=== PATIENT | male | born 1945 | race Caucasian/White ===

== ENCOUNTER → 2017-02-04 | Outpatient (CLI) | payer OTHER ==
[~2017-02-04] MED LIST: ATOR10TA88 PO; ATV/1 PO; DOCU-94 PO; GADAVIST IV PRN; HYD10 PO; HYDR10TA52 PO; IBUP-1450 PO; LISI-787 PO; OXYC1TAB3 PO; PRLSR20 PO
--- NOTE | 2017-02-04 12:42 | DIAGNOSTIC IMAGING REPORT ---
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 TECHNIQUE: Multisequence, multiplanar MR imaging of the brain was performed before and after the administration of intravenous contrast. IV contrast: 10 mL of Gadavist. COMPARISON: None. FINDINGS: Normal midline sagittal structures. Ventricles and sulci are normal in size without evidence of hydrocephalus. No restricted diffusion to suggest acute ischemia. No midline shift or mass effect. No evidence of hemorrhage or extra-axial fluid collection. No suspicious enhancement on postcontrast imaging. T2 skull base flow voids preserved. Dominant left vertebral artery. Normal bone marrow signal intensity within the calvarium. Minimal fluid in the right sphenoid sinus. IMPRESSION: 1. No acute intracranial pathology. No enhancing lesion to suggest hemangioblastoma. Electronically signed by: Seven Ponce M.D. 02/04/2017 12:41 PM Dictated Date/Time: 02/04/2017 12:36 PM
== END | disposition home or self-care (01) ==
LOC: C.OPENMRI 10:33
PROVIDERS: ATTEND Urology
DX: E27.9 Disorder of adrenal gland, unspecified (principal)

== ENCOUNTER → 2017-04-23 | Day surgery (SDC) | payer OTHER ==
[2017-04-22 08:50] VITALS: Ht 179.1 cm; Wt 97.3 kg
[~2017-04-23] VITALS: Ht 179.1 cm; Wt 97.3 kg
[~2017-04-23] MED LIST changes: -ATOR10TA88 PO; +FENTANYL CITRATE INJ 50 MCG/1 ML 2 ML VIAL ONE; -GADAVIST IV PRN; -IBUP-1450 PO; +LIDOCAINE HCL 2% 2 ML VIAL (20MG/ML) ONE; -LISI-787 PO; +PROPOFOL IV EMULSION 10 MG/ML 20 ML VIAL IV ONE
--- NOTE | 2017-04-23 09:35 | Endo History and Physical ---
History & Physical Date of Service: Apr 23, 2017. Chief Complaint: IRON DEF ANEMIA Referring Physician: DR. STORY History of Present Illness iron defic anemia; mother had colon cancer; never had EGD or colon before Past Surgical History Hx Cardiac Surgery: No Hx Pacemaker: No Hx Abdominal Surgery: Yes (ADRENAL GLAND REMOVAL AND MASS REMOVAL FROM KIDNEY) Hx of Implantable Prosthesis: No Hx Post-Op Nausea and Vomiting: No Hx Cancer Surgery: Yes (MELANOMA REMOVAL) Hx Thoracic Surgery: No Hx Orthopedic: No Hx Urinary Tract Surgery: No Family History Colon CA Social History Smoking Status: Never Smoker Hx Substance Use: Yes (SEE MED LIST) Hx Alcohol Use: No Allergies Coded Allergies: Simvastatin (Verified Allergy, Unknown, JOINT AND MUSCLE PAIN, 04/23/17) Current Medications Reported Home Medications Medications Dose Route/Sig Max Daily Dose Days Date Category Roxicodone Ir (Oxycodone HCl) 5 Mg Tab 5 Mg PO Q4H PRN 04/22/17 Reported Prilosec (Omeprazole) 20 Mg Capcr 20 Mg PO BID 04/22/17 Reported Ativan (Lorazepam) 1 Mg Tab 1 Mg PO BID PRN 04/22/17 Reported Cortef (Hydrocortisone) 10 Mg Tab 2 Tabs PO QAM 04/22/17 Reported Cortef (Hydrocortisone) 10 Mg Tab 0.5 Tab PO QPM 04/22/17 Reported Colace (Docusate Sodium) 100 Mg Cap 1 Cap PO BID 04/22/17 Reported Vital Signs Weight (Kilograms): 97.27 Height (Feet): 5 Height (Inches): 10.5 Date Time Temp Pulse Resp B/P (MAP) Pulse Ox O2 Delivery O2 Flow Rate FiO2 04/23/17 09:08 36.1 106 20 148/91 (110) 99 Room Air Physical Exam General Appearance: WD/WN, + mild distress Assessment and Plan EGd and colonoscopy today
--- NOTE | 2017-04-23 10:10 | Discharge Instructions ---
Endoscopy Patient Instructions Date / Procedure(s) Performed Apr 23, 2017. Colonoscopy, EGD Allergy Information Coded Allergies: Simvastatin (Verified Allergy, Unknown, JOINT AND MUSCLE PAIN, 04/23/17) Discharge Date / Findings Apr 23, 2017. large hiatal hernia and diverticulosis Medication Instructions Restart Stopped Medication(s): OK to resume all home medications as above Provider Instructions Activity Restrictions - No exercising or heavy lifting for 24 hours. - Do not drink alcohol the day of the procedure. - Do not drive a car or operate machinery until the day after the procedure. - Do not make any important decisions or sign important papers in 24 hours after the procedure. Following Day: - Return to full activity which may include returning to work/school. Diet Start your diet with liquids and light foods (jello, soup, juice, toast). Then eat your usual diet if not nauseated. Treatment For Common After Affects For mild abdominal pain, bloating, or excessive gas: - Rest - Eat lightly - Lie on right side Follow-Up Information Follow-up with DR. STORY as scheduled Anesthesia Information What You Should Know You have had a procedure that required some medicine to reduce anxiety and discomfort. This treatment is called moderate sedation. After receiving the treatment, you may be sleepy, but you will be able to breathe on your own. The effects of the treatment may last for several hours. Follow these instructions along with Activity/Diet recommendations noted above: * Do NOT do anything where dizziness or clumsiness would be dangerous. * Rest quietly at home today, then you can be up and about tomorrow. * Have a responsible person stay with you the rest of today. * You may have had an I.V. today. If so, you may take the dressing off later today. Recommendations Call your doctor if: * Trouble breathing * Continuous vomiting for more than 24 hours * Temperature above 101 degrees * Severe abdominal pain or bloating * Pain not relieved by pain medicine ordered * There is increased drainage or redness from any incision * A large amount of rectal bleeding greater than 2-3 tablespoons. (If you had a polyp/s removed or have hemorrhoids, a small amount of blood - from the rectum is to be expected.) * You have any unanswered questions or concerns. IN THE EVENT OF A SERIOUS EMERGENCY, GO TO THE NEAREST EMERGENCY ROOM Your discharge instructions were prepared by provider Yvonne Reina. Patient Instructions Signature Page Zia Martinez Patient (or Guardian) Signature/Date: I have read and understand the instructions given to me by my caregivers. Caregiver/RN/Doctor Signature/Date: The above-named patient and/or guardian has received patient instructions on this date. + Original Patient Signature Page (only) stays with chart. Please make copy for patient.
--- NOTE | 2017-04-23 10:12 | GI REPORT ---
Procedure Date: 04/23/2017 9:39 AM Procedure: Upper GI endoscopy Indications: Iron deficiency anemia Medicines: Propofol per Anesthesia Complications: No immediate complications. Estimated blood loss: None. Estimated Blood Loss: Estimated blood loss: none. Procedure: Pre-Anesthesia Assessment: - Prior to the procedure, a History and Physical was performed, and patient medications, allergies and sensitivities were reviewed. The patient's tolerance of previous anesthesia was reviewed. - The risks and benefits of the procedure and the sedation options and risks were discussed with the patient. All questions were answered and informed consent was obtained. - Patient identification and proposed procedure were verified prior to the procedure by the physician and the nurse. The procedure was verified in the pre-procedure area in the procedure room. - Mental Status Examination: alert and oriented. Airway Examination: normal oropharyngeal airway and neck mobility. Respiratory Examination: clear to auscultation. CV Examination: normal. Abdominal Examination: bowel sounds present, abdomen soft and non-tender, no masses or organomegaly noted. - ASA Grade Assessment: III - A patient with severe systemic disease. After obtaining informed consent, the endoscope was passed under direct vision. Throughout the procedure, the patient's blood pressure, pulse, and oxygen saturations were monitored continuously. The scope was introduced through the mouth, and advanced to the second part of duodenum. The upper GI endoscopy was accomplished without difficulty. The patient tolerated the procedure well. Findings: The esophagus was normal. A large hiatus hernia was present. The examined duodenum was normal. Impression: - Normal esophagus. - Large hiatus hernia. No camerons ulcers. - Normal examined duodenum. - No specimens collected. Recommendation: - Perform a colonoscopy today. Yvonne Reina D.O. Yvonne Reina, 04/23/2017 10:12:11 AM This report has been signed electronically. Note Initiated On: 04/23/2017 9:39 AM I attest to the content of the Intraoperative Record and orders documented therein, exceptions below
--- NOTE | 2017-04-23 10:14 | GI REPORT ---
Procedure Date: 04/23/2017 9:39 AM Procedure: Colonoscopy Indications: Screening in patient at increased risk: Colorectal cancer in mother 60 or older, Incidental - Iron deficiency anemia Medicines: Propofol per Anesthesia Complications: No immediate complications. Estimated blood loss: None. Estimated Blood Loss: Estimated blood loss: none. Procedure: Pre-Anesthesia Assessment: - Prior to the procedure, a History and Physical was performed, and patient medications, allergies and sensitivities were reviewed. The patient's tolerance of previous anesthesia was reviewed. - The risks and benefits of the procedure and the sedation options and risks were discussed with the patient. All questions were answered and informed consent was obtained. - Patient identification and proposed procedure were verified prior to the procedure by the physician and the nurse. The procedure was verified in the pre-procedure area in the procedure room. - Mental Status Examination: alert and oriented. Airway Examination: normal oropharyngeal airway and neck mobility. Respiratory Examination: clear to auscultation. CV Examination: normal. Abdominal Examination: bowel sounds present, abdomen soft and non-tender, no masses or organomegaly noted. - ASA Grade Assessment: III - A patient with severe systemic disease. After I obtained informed consent, the scope was passed under direct vision. Throughout the procedure, the patient's blood pressure, pulse, and oxygen saturations were monitored continuously. The scope was introduced through the anus and advanced to the cecum, identified by appendiceal orifice and ileocecal valve. The colonoscopy was performed without difficulty. The patient tolerated the procedure well. The quality of the bowel preparation was good. Findings: The perianal and digital rectal examinations were normal. Pertinent negatives include normal sphincter tone and no palpable rectal lesions. Multiple small and large-mouthed diverticula were found in the sigmoid colon and in the descending colon. Internal hemorrhoids were found during retroflexion. Impression: - Diverticulosis in the sigmoid colon and in the descending colon. - Internal hemorrhoids. - No specimens collected. Recommendation: - Repeat colonoscopy in 5 years for screening purposes. - Return to referring physician as previously scheduled. - Discharge patient to home. Yvonne Reina D.O. Yvonne Reina DO 04/23/2017 10:14:03 AM This report has been signed electronically. Note Initiated On: 04/23/2017 9:39 AM I attest to the content of the Intraoperative Record and orders documented therein, exceptions below
--- NOTE | 2017-04-23 10:26 | Anesthesiology Progress Note ---
Anesthesia Post Op Note Date & Time Apr 23, 2017 at 10:26 Vital Signs Pain Intensity: 0 Vital Signs Past 12 Hours Date Time Temp Pulse Resp B/P (MAP) Pulse Ox O2 Delivery O2 Flow Rate FiO2 04/23/17 10:15 36.5 86 20 92/56 (68) 99 Room Air 04/23/17 09:08 36.1 106 20 148/91 (110) 99 Room Air Notes Mental Status: alert / awake / arousable, participated in evaluation Pt Amnestic to Procedure: Yes Nausea / Vomiting: adequately controlled Pain: adequately controlled Airway Patency, RR, SpO2: stable & adequate BP & HR: stable & adequate Hydration State: stable & adequate Anesthetic Complications: no major complications apparent
[2017-04-23 10:45] VITALS: BP 104/65; PULSE 81; O2SAT 99
== END | disposition home or self-care (01) ==
LOC: C.GI 08:37
PROVIDERS: ATTEND Internal Medicine
DX: D50.9 Iron deficiency anemia, unspecified (principal); K57.30 Diverticulosis of large intestine without perforation or abscess without bleeding; K64.8 Other hemorrhoids; Z80.0 Family history of malignant neoplasm of digestive organs; G47.33 Obstructive sleep apnea (adult) (pediatric); Z98.890 Other specified postprocedural states; Z68.30 Body mass index [BMI] 30.0-30.9, adult; F41.9 Anxiety disorder, unspecified

== ENCOUNTER 2017-05-07 20:05 | Inpatient (IN) | payer OTHER ==
[~2017-05-07] VITALS: Ht 177.8 cm; Wt 93.0 kg
[~2017-05-07 20:05] MED LIST changes: -FENTANYL CITRATE INJ 50 MCG/1 ML 2 ML VIAL ONE; -LIDOCAINE HCL 2% 2 ML VIAL (20MG/ML) ONE; -PROPOFOL IV EMULSION 10 MG/ML 20 ML VIAL IV ONE
[2017-05-07] MEDS ORDERED: FERR1TAB13 PO (21:27)
[2017-05-07 21:36] LABS: BASO % 0.5 %; BASO ABS # 0.03 K/uL (0-0.2); EOS % 4.1 %; HEMATOCRIT 24.1 % (42-52); IG% 0.2 %; LYMPH % 30.3 %; LYMPH ABS # 1.84 K/uL (1.2-3.4); MEAN CELL VOLUME 75.3 fL (80-100); MEAN CORPUSCULAR HEMOGLOBIN 22.2 pg (25-34); MEAN CORPUSCULAR HGB CONC 29.5 g/dl (32-36); MEAN PLATELET VOLUME 8.2 fL (7.4-10.4); MONO % 8.6 %; NEUT % 56.3 %; PLATELET COUNT 555 K/uL (130-400); WHITE BLOOD COUNT 6.07 K/uL (4.8-10.8)
--- NOTE | 2017-05-07 21:39 | EMERGENCY ROOM VISIT NOTE ---
History First contact with patient: 21:06 Chief Complaint: WEAKNESS Stated Complaint: LACK OF BLOOD (WEAK) Nursing Triage Summary: Patient presents to triage via wheelchair, states "I was just in to see Dr. Hurley around 1300 today. He told me that my blood counts are low. My hgb is 7. I had an operation about 3 weeks ago and I had to have a blood transfusion at that time. I am so weak. I can't get my body back up here." Patient had a mass and adrenal glands removed with some lymph nodes. Surgery was completed by Dr. Moore in [place]. Patient denies any pain; reports shortness of breath with exertion. Patient was diagnosed with melanoma with mets. Patient has not started chemo or radiation at this time. History of Present Illness The patient is a 72 year old male who presents to the Emergency Room with complaints of weakness and some dyspnea on exertion. The symptoms have been going on for at least several days. The patient underwent a surgical resection of his left adrenal gland approximately 3 weeks ago. He was diagnosed with melanoma. He is not currently undergoing any chemotherapy. The patient is a fairly poor historian. He reportedly saw his doctor earlier today. He was told that his hemoglobin was low, and comes emergency department for evaluation. He denies any chest pain. He denies any lightheadedness or dizziness. He does admit to feeling very weak. He denies any black stools or bright red blood in his stool. He had a colonoscopy in the last 2 weeks. Review of Systems 10 system review performed and negative unless noted in HPI or below Past Medical/Surgical History Melanoma, status post left adrenal gland resection Social History Smoking Status: Former Smoker Marital Status: in relationship Housing Status: lives with significant other Occupation Status: retired Current/Historical Medications Scheduled Docusate Sodium (Colace), 1 CAP PO BID Ferrous Sulfate (Kp Ferrous Sulfate), 325 MG PO BID Hydrocortisone (Cortef), 10 MG PO QPM Hydrocortisone (Cortef), 2 TABS PO QAM Omeprazole (Prilosec), 20 MG PO QAM Scheduled PRN Lorazepam (Ativan), 1 MG PO BID PRN for Anxiety Physical Exam Vital Signs Date Time Temp Pulse Resp B/P (MAP) Pulse Ox O2 Delivery O2 Flow Rate FiO2 05/07/17 22:45 98 18 102/71 05/07/17 21:40 104 18 122/79 99 Room Air 05/07/17 21:30 106 05/07/17 20:11 37.0 90 18 110/70 95 Room Air Physical Exam VITALS: Vitals are noted on the nurse's note and reviewed by myself. Vital signs stable. GENERAL: 72-year-old male, pale in appearance, SKIN: The skin was without rashes, erythema, edema, or bruising. HEAD: Normocephalic atraumatic. MOUTH: Mucous membranes slightly dry NECK: . No JVD. HEART: Systolic murmur, regular rate and rhythm without murmurs gallops or rubs. LUNGS: Clear to auscultation bilaterally without wheezes, rales or rhonchi. No accessory muscle use. ABDOMEN: Well-healing incisional scar noted. Positive bowel sounds x 4.Soft, nontender, without organomegaly. No guarding or rebound tenderness. MUSCULOSKELETAL: No muscle atrophy, erythema, or edema noted. Strength 5/5 throughout. NEURO: Patient was alert and oriented to person place and time. Normal sensation to touch. No focal neurological deficits. Medical Decision & Procedures ER Provider Diagnostic Interpretation: CXR IMPRESSION: No acute cardiopulmonary findings. Electronically signed by: Cuong Rose M.D. 05/07/2017 10:04 PM Laboratory Results 05/07/17 21:08 Red Blood Count 3.20, Mean Corpuscular Volume 75.3, Mean Corpuscular Hemoglobin 22.2, Mean Corpuscular Hemoglobin Concent 29.5, Mean Platelet Volume 8.2, Neutrophils (%) (Auto) 56.3, Lymphocytes (%) (Auto) 30.3, Monocytes (%) (Auto) 8.6, Eosinophils (%) (Auto) 4.1, Basophils (%) (Auto) 0.5, Neutrophils # (Auto) 3.42, Lymphocytes # (Auto) 1.84, Monocytes # (Auto) 0.52, Eosinophils # (Auto) 0.25, Basophils # (Auto) 0.03 05/07/17 21:08 Test 05/07/17 21:08 White Blood Count 6.07 K/uL (4.8-10.8) Red Blood Count 3.20 M/uL (4.7-6.1) Hemoglobin 7.1 g/dL (14.0-18.0) Hematocrit 24.1 % (42-52) Mean Corpuscular Volume 75.3 fL (80-100) Mean Corpuscular Hemoglobin 22.2 pg (25-34) Mean Corpuscular Hemoglobin Concent 29.5 g/dl (32-36) Platelet Count 555 K/uL (130-400) Mean Platelet Volume 8.2 fL (7.4-10.4) Neutrophils (%) (Auto) 56.3 % Lymphocytes (%) (Auto) 30.3 % Monocytes (%) (Auto) 8.6 % Eosinophils (%) (Auto) 4.1 % Basophils (%) (Auto) 0.5 % Neutrophils # (Auto) 3.42 K/uL (1.4-6.5) Lymphocytes # (Auto) 1.84 K/uL (1.2-3.4) Monocytes # (Auto) 0.52 K/uL (0.11-0.59) Eosinophils # (Auto) 0.25 K/uL (0-0.5) Basophils # (Auto) 0.03 K/uL (0-0.2) RDW Standard Deviation 46.3 fL (36.4-46.3) RDW Coefficient of Variation 16.6 % (11.5-14.5) Immature Granulocyte % (Auto) 0.2 % Immature Granulocyte # (Auto) 0.01 K/uL (0.00-0.02) Hypochromasia PRESENT Ovalocytes 1+ Anion Gap 6.0 mmol/L (3-11) Est Creatinine Clear Calc Drug Dose 64.7 ml/min Estimated GFR () 68.5 Estimated GFR (Non- 59.1 BUN/Creatinine Ratio 18.0 (10-20) Calcium Level 8.5 mg/dl (8.5-10.1) Magnesium Level 1.9 mg/dl (1.8-2.4) Total Bilirubin 0.2 mg/dl (0.2-1) Aspartate Amino Transf (AST/SGOT) 14 U/L (15-37) Alanine Aminotransferase (ALT/SGPT) 13 U/L (12-78) Alkaline Phosphatase 84 U/L (45-117) Total Protein 6.1 gm/dl (6.4-8.2) Albumin 2.4 gm/dl (3.4-5.0) Globulin 3.7 gm/dl (2.5-4.0) Albumin/Globulin Ratio 0.7 (0.9-2) ECG Indication: weakness Rate (beats per minute): 102 Rhythm: sinus tachycardia ED Course Patient was seen and examined Vital signs including blood pressure were reviewed medications list was verified with patient Labs were obtained, and a saline lock was established The patient was ordered 2 units of packed RBCs The case was discussed with my supervising physician in addition to case management. I spoke with the [facility] service, who agreed to admit the patient. Medical Decision Differential diagnosis: Anemia of chronic disease, intra-abdominal bleeding, GI bleeding, vitamin deficiency This patient is a 72-year-old male that presents to the emergency department with complaints of weakness. He recently underwent excision of his left adrenal gland 3 weeks ago for metastatic melanoma. The patient's abdomen is benign. He does not have any abdominal pain. I do not suspect any postoperative bleeding. The patient does not have any signs of GI bleeding. He underwent a colonoscopy 2 weeks ago that did not show any signs of bleeding, lesions or masses. It is possible that this is a mixture of malnutrition and anemia of chronic disease. His hemoglobin is 7.1. I do not feel comfortable sending this patient home as he will need to receive several units of blood. He agreed to stay overnight for further workup and treatment. This chart was completed in part utilizing [employer] Speech Voice Recognition software. Attempts were made to minimize the grammatical errors, random word insertions, pronoun errors and incomplete sentences. Any formal questions or concerns about the content, text or information contained within the body of this dictation should be directly addressed to the provider for clarification. Medication Reconcilliation Current Medication List: was personally reviewed by me Blood Pressure Screening Patient's blood pressure: Normal blood pressure Impression Primary Impression: Anemia Departure Information Referrals Vic Salinas M.D. (PCP) Patient Instructions My [facility]
[2017-05-07 21:56] LABS: CALCIUM 8.5 mg/dl (8.5-10.1); CREATININE 1.23 mg/dl (0.60-1.40); MAGNESIUM 1.9 mg/dl (1.8-2.4); POTASSIUM 4.2 mmol/L (3.5-5.1)
[2017-05-07 21:58] LABS: ALB/GLOB RATIO 0.7 (0.9-2)
[2017-05-07 22:01] LABS: COMPLETE YES; HYPOCHROMIA PRESENT; OVALOCYTES 1+
--- NOTE | 2017-05-07 22:06 | DIAGNOSTIC IMAGING REPORT ---
CHEST ONE VIEW PORTABLE CLINICAL HISTORY: Weakness. COMPARISON STUDY: No previous studies for comparison. FINDINGS: Right axillary surgical clips are noted. Lung volumes are normal. No pneumothorax or pleural effusion is present. There is no consolidation to suggest pneumonia and there is no evidence of pulmonary edema. Cardiomediastinal silhouette is normal. IMPRESSION: No acute cardiopulmonary findings. Electronically signed by: Cuong Rose M.D. 05/07/2017 10:04 PM Dictated Date/Time: 05/07/2017 10:04 PM
[2017-05-07 23:45] VITALS: BP 112/63; PULSE 94; TEMP 36.8; O2SAT 98
[2017-05-08] VITALS (10 sets, daily range): BP systolic 89–120; BP diastolic 56–71; PULSE 73–98; TEMP 36.3–37; O2SAT 99–100; Ht 177.8 cm; Wt 93.0 kg
[2017-05-08] MEDS ORDERED: TRAMADOL HCL 50 MG TAB PO PRN (01:30)
[2017-05-08] MEDS ORDERED: SODIUM CHLORIDE 0.9% 1000ML 1,000 ML IV ONE (01:30)
[2017-05-08] MEDS ORDERED: LORAZEPAM 1 MG TAB PO PRN (01:30)
[2017-05-08] MEDS ORDERED: ONDANSETRON INJ 2 MG/ML 2 ML VIAL IV PRN (01:30)
[2017-05-08] MEDS ORDERED: ACETAMINOPHEN 325 MG TAB PO PRN (01:30)
[2017-05-08] MEDS ORDERED: OPTIRAY 320 IV PRN (01:45)
[2017-05-08 01:51] LABS: THYROID STIMULATING HORMONE 1.4 uIu/ml (0.300-4.500)
[2017-05-08 05:38] LABS: URINE APPEARANCE CLEAR (CLEAR); URINE BILIRUBIN NEG (NEG); URINE COLOR YELLOW; URINE EPITHELIAL CELL AUTO >30 /lpf (0-5); URINE NITRITE NEG (NEG); URINE PH 5.5 (4.5-7.5); URINE SPECIFIC GRAVITY 1.034 (1.000-1.030); UROBILINOGEN NEG (NEG)
[2017-05-08 06:01] LABS: BASO % 0.5 %; BASO ABS # 0.03 K/uL (0-0.2); EOS % 5.2 %; HEMATOCRIT 23.7 % (42-52); IG% 0.2 %; LYMPH % 34.9 %; LYMPH ABS # 2.09 K/uL (1.2-3.4); MEAN CELL VOLUME 75.5 fL (80-100); MEAN CORPUSCULAR HEMOGLOBIN 23.2 pg (25-34); MEAN CORPUSCULAR HGB CONC 30.8 g/dl (32-36); MEAN PLATELET VOLUME 8.2 fL (7.4-10.4); MONO % 9.2 %; PLATELET COUNT 459 K/uL (130-400); RED BLOOD COUNT 3.14 M/uL (4.7-6.1); WHITE BLOOD COUNT 5.98 K/uL (4.8-10.8)
[2017-05-08 06:13] LABS: MANUAL MICROSCOPIC REQUIRED? NO; REVIEW REQ? YES
[2017-05-08 06:19] LABS: PROTHROMBIN TIME (PATIENT) 10.4 SECONDS (9.0-12.0)
[2017-05-08 06:56] LABS: COMPLETE YES; HYPOCHROMIA PRESENT; MICROCYTOSIS PRESENT
--- NOTE | 2017-05-08 07:20 | DIAGNOSTIC IMAGING REPORT ---
CHEST CTA for PULMONARY ARTERIES CT DOSE: 505.88 mGy.cm HISTORY: Short of breath. TECHNIQUE: Multiaxial CT images of the chest were performed following the intravenous administration of contrast to evaluate the pulmonary arteries. Maximal intensity projection images were also obtained. A dose lowering technique was utilized adhering to the principles of ALARA. COMPARISON STUDY: None. FINDINGS: No evidence for an aortic dissection or pulmonary embolus. The heart is normal in size. No pleural or pericardial effusions. Surgical clips within the right axilla. Incompletely imaged 7.6 cm right adrenal gland mass. There are 2 hypodense splenic masses with the largest measuring 4.9 cm. Mild soft tissue and nodular thickening at the left adrenal gland with the dominant nodule measuring 9 mm. This is posterior to the pancreatic tail. Mediastinal lymph nodes are subcentimeter in short axis diameter with the largest measuring 8 mm. These do not meet CT criteria for pathologic involvement. Old, healed left-sided rib fractures. No pneumothorax. A 3 mm nodule within the left lower lobe on image 102. A 3 mm nodule within the left lower lobe on image 113. A 3 mm nodule within the right middle lobe on image 182. IMPRESSION: 1. No evidence for pulmonary embolus. 2. A 7.6 cm right adrenal gland mass and abnormal soft tissue density/nodularity within the left retroperitoneum in the region of the left adrenal gland. There also 2 hypodense splenic masses. This is suspicious for metastatic disease. 3. A total of 3, 3 mm indeterminate pulmonary nodules. Electronically signed by: Mingo Constantino M.D. 05/08/2017 7:19 AM Dictated Date/Time: 05/08/2017 7:13 AM
[2017-05-08] MEDS ORDERED: PERFLUTREN LIPID MICROSPHERE (DEFINITY) IV ONE (07:43)
[2017-05-08] MEDS ORDERED: DOCUSATE SODIUM 100 MG CAP PO SCH (08:00)
[2017-05-08] MEDS ORDERED: FERROUS SULFATE 325 MG TAB PO SCH (08:00)
[2017-05-08] MEDS ORDERED: HYDROCORTISONE 10 MG TAB PO SCH ×3 (08:00→21:00)
[2017-05-08] MEDS ORDERED: PANTOprazole SOD 40 MG TAB PO SCH (08:00)
[2017-05-08] MEDS ORDERED: ENOXAPARIN 40 MG/0.4 ML SYR SQ SCH (08:00)
[2017-05-08] MEDS ORDERED: NURSING VERBAL MED ORDER ONE (08:30)
--- NOTE | 2017-05-08 10:25 | Progress Note ---
Internal Med Progress Note Date of Service: May 08, 2017. Provider Documentation: SUBJECTIVE: feels exhausted as did not get any sleep last night no complain of SOB or JACOBO got 1 unit of PRBC transfusion had ECHO this AM , had brief period of SOB , chest heaviness with pain radiating to back while getting the Definity contrast symptom has resolved after few minutes at present denies of any discomfort wants to have rest to catch up with his sleep OBJECTIVE: Vital Signs-as noted below Exam: General-no sign of distress Eyes-sclera non icteric ENT-NAD Neck-no JVD Lungs-CTA , no rales or wheeze Heart-regular S1/S2 Abdomen-soft, non tender Extremities-no lower ext edema Neuro-AAo x3 , no focal deficit Lab data as noted below. ASSESSMENT & PLAN: SOB /JACOBO : possible due to Anemia ordered for PRBC transfusion ECHO ordered to assess LV function will benefit with out pt pulmonary function test ANEMIA : possible anemia of chronic disease last Hb on 05/05 was ~8 Presented with HB 7.1 with symptom of weakness and JACOBO ordered for PRBC tx , getting 2 units of PRBC tx follow repeat H&H post transfusion for adequate correction low MCV , denies of any dark stool had EGD /Colonoscopy work up on 04/23/17 for fe deficiency anemia EGD -normal study Colonoscopy : diverticulosis in sigmoid colon, internal hemorrhoids follow CBC on Fe supplement RECENT ADRENAL SURGERY /RECURRENT MELANOMA history of melanoma of the right shoulder S/p resection in 11/02/2013 found to have bilateral adrenal masses s/p open left adrenalectomy on 2016. . found to be metastatic melanoma cont out pt follow up with Heme Onc -scheduled to see Dr Frederick on 05/22/17 Cont on Hydrocortisone 20 mg in AM /10 mg at PM DVT PROPHYLAXIS scd and teds ambulate will avoid pharmacological anticoagulation due to anemia DISPOSITION expected to be discharged home when medically stable Medicine follow up with Dr Salinas Oncology follow up with Dr Frederick Vital Signs: Date Time Temp Pulse Resp B/P (MAP) Pulse Ox O2 Delivery O2 Flow Rate FiO2 05/08/17 09:37 36.8 95 18 115/63 05/08/17 07:45 Room Air 05/08/17 01:50 36.5 88 16 120/70 (87) 99 Room Air 05/08/17 01:23 37.0 91 22 113/65 98 05/08/17 01:12 91 22 113/65 98 05/08/17 01:10 37.0 89 22 113/65 99 05/08/17 00:32 Room Air 05/07/17 23:45 36.8 94 112/63 98 05/07/17 23:35 100 113/70 05/07/17 22:45 98 18 102/71 05/07/17 21:40 104 18 122/79 99 Room Air 05/07/17 21:30 106 05/07/17 20:11 37.0 90 18 110/70 95 Room Air Lab Results: Results Past 24 Hours Test 05/07/17 21:08 05/08/17 05:20 05/08/17 05:50 Range/Units White Blood Count 6.07 5.98 4.8-10.8 K/uL Red Blood Count 3.20 3.14 4.7-6.1 M/uL Hemoglobin 7.1 7.3 14.0-18.0 g/dL Hematocrit 24.1 23.7 42-52 % Mean Corpuscular Volume 75.3 75.5 80-100 fL Mean Corpuscular Hemoglobin 22.2 23.2 25-34 pg Mean Corpuscular Hemoglobin Concent 29.5 30.8 32-36 g/dl Platelet Count 555 459 130-400 K/uL Mean Platelet Volume 8.2 8.2 7.4-10.4 fL Neutrophils (%) (Auto) 56.3 50.0 % Lymphocytes (%) (Auto) 30.3 34.9 % Monocytes (%) (Auto) 8.6 9.2 % Eosinophils (%) (Auto) 4.1 5.2 % Basophils (%) (Auto) 0.5 0.5 % Neutrophils # (Auto) 3.42 2.99 1.4-6.5 K/uL Lymphocytes # (Auto) 1.84 2.09 1.2-3.4 K/uL Monocytes # (Auto) 0.52 0.55 0.11-0.59 K/uL Eosinophils # (Auto) 0.25 0.31 0-0.5 K/uL Basophils # (Auto) 0.03 0.03 0-0.2 K/uL RDW Standard Deviation 46.3 45.3 36.4-46.3 fL RDW Coefficient of Variation 16.6 16.3 11.5-14.5 % Immature Granulocyte % (Auto) 0.2 0.2 % Immature Granulocyte # (Auto) 0.01 0.01 0.00-0.02 K/uL Hypochromasia PRESENT PRESENT Ovalocytes 1+ Sodium Level 136 136-145 mmol/L Potassium Level 4.2 3.5-5.1 mmol/L Chloride Level 102 98-107 mmol/L Carbon Dioxide Level 28 21-32 mmol/L Anion Gap 6.0 3-11 mmol/L Blood Urea Nitrogen 22 7-18 mg/dl Creatinine 1.23 0.60-1.40 mg/dl Est Creatinine Clear Calc Drug Dose 64.7 ml/min Estimated GFR () 68.5 Estimated GFR (Non- 59.1 BUN/Creatinine Ratio 18.0 10-20 Random Glucose 105 70-99 mg/dl Calcium Level 8.5 8.5-10.1 mg/dl Magnesium Level 1.9 1.8-2.4 mg/dl Total Bilirubin 0.2 0.2-1 mg/dl Aspartate Amino Transf (AST/SGOT) 14 15-37 U/L Alanine Aminotransferase (ALT/SGPT) 13 12-78 U/L Alkaline Phosphatase 84 45-117 U/L Total Protein 6.1 6.4-8.2 gm/dl Albumin 2.4 3.4-5.0 gm/dl Globulin 3.7 2.5-4.0 gm/dl Albumin/Globulin Ratio 0.7 0.9-2 Thyroid Stimulating Hormone (TSH) 1.400 0.300-4.500 uIu/ml Urine Color YELLOW Urine Appearance CLEAR CLEAR Urine pH 5.5 4.5-7.5 Urine Specific Carr 1.034 1.000-1.030 Urine Protein NEG NEG Urine Glucose (UA) NEG NEG Urine Ketones NEG NEG Urine Occult Blood 1+ NEG Urine Nitrite NEG NEG Urine Bilirubin NEG NEG Urine Urobilinogen NEG NEG Urine Leukocyte Esterase MODERATE NEG Urine WBC (Auto) >30 0-5 /hpf Urine RBC (Auto) 5-10 0-4 /hpf Urine Hyaline Casts (Auto) 1-5 0-5 /lpf Urine Epithelial Cells (Auto) >30 0-5 /lpf Urine Bacteria (Auto) NEG NEG Urine Yeast (Auto) NONE PRSENT Microcytosis PRESENT Prothrombin Time 10.4 9.0-12.0 SECONDS Prothromb Time International Ratio 1.0 0.9-1.1
--- NOTE | 2017-05-08 10:36 | HISTORY & PHYSICAL EXAMINATION ---
DATE OF ADMISSION: 05/08/2017 PRIMARY CARE DOCTOR: Dr. Salinas. CHIEF COMPLAINT: Weakness, abnormal blood work. HISTORY OF PRESENT ILLNESS: History obtained from the patient and records. Medical history significant for recurrent melanoma, status post surgery with newly diagnosed adrenal mets, status post recent surgery, hypertension , past tobacco abuse, LILLIANA on CPAP. In 2013, the patient had removal of trunk melanoma. November 2016, the patient noted major decline in energy and sense of well being and major weight loss. He was found to have bilateral adrenal masses left greater than the right on CT 02/2017. Possible adrenal insufficiency as per [facility] [place]. Started on steroid maintenance Rx. Seen at [facility]. Patient underwent left laparoscopic adrenalectomy last 04/14/2017. Preop hemoglobin noted to be 8.1, 7.8 on discharge. Outpatient GI workup done a few weeks later. EGD last 04/23/2017 showed normal esophagus, hiatal hernia, no Anant ulcers. Colonoscopy showed diverticulosis, internal hemorrhoids. As per patient, a few days after surgery, patient noted shortness of breath on exertion. No chest pain, no cough symptoms. Symptoms worsened after colonoscopy prep. Denies unusual depression. Feels rested in the morning after wearing CPAP mask overnight. Patient had follow-up [facility] [place]rolog[place] 05/06/2017. Pathology came out as metastatic melanoma for removed left adrenal mass. Right adrenal mass suspicious for metastatic disease as well. Tumor testing, PET scan, outpatient oncology referral recommended. Consideration for right adrenalectomy pending staging workup. Patient seen [place] [facility] [place] yesterday. Outpatient hemoglobin noted to be 7.1. The patient sent to the Emergency Room. Repeat hemoglobin noted to be 7.1. Packed RBC transfused in the ER. MEDICAL HISTORY: As above. SURGERIES: Adrenalectomy, skin cancer surgery. HOME MEDICATIONS: Include Colace, ferrous sulfate, Cortef, Ativan, Prilosec. ALLERGIES: SIMVASTATIN. FAMILY HISTORY: Colon cancer, heart disease, stroke. PERSONAL AND SOCIAL HISTORY: Past tobacco abuse. Past alcohol abuse. 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 REVIEW OF SYSTEMS: As per HPI, all other ROS negative. PHYSICAL EXAMINATION: VITAL SIGNS: Blood pressure was noted to be 113/65, pulse rate 89, RR 22, temperature 36.7, sats 99 on room air. GENERAL: Noted to be slightly irate. No respiratory distress. SKIN: Pallor, warm. HEENT: Partial alopecia, pink palpebral conjunctivae. No ptosis. Dry buccal mucosa. NECK: No tenderness. Supple. CHEST: No tenderness. Clear to auscultation. CARDIOVASCULAR: Regular rate and rhythm. Palpable LE pulses. ABDOMEN: Some distention. Nontender. EXTREMITIES: No edema. No gross deformities. No tenderness NEUROLOGIC: No gross focality. Coherent. LABORATORY DATA: Hemoglobin was noted to be 7.1, hematocrit 24, white blood cell count 6, platelets 555. Sodium 136, potassium 4.2, chloride 102, CO2 of 28, BUN 20, creatinine 1, glucose 90. Chest x-ray showed no acute findings. CT chest, PE study, initial read, no evidence of pulmonary embolus. ASSESSMENT: 1. Postop shortness of breath on exertion last few weeks Differentials include : deconditioning cardiac dysfunction undiagnosed chronic obstructive pulmonary disease. Would not attribute all symptoms to anemia given stable hemoglobin of 7-8 perioperatively from last month. 2. Adrenal insufficiency on medications. 3. Recurrent melanoma with adrenal metastases status post surgery. Disposition pending scheduled outpatient PET scan. 4. Past tobacco abuse. PLAN: F Transfuse packed RBCs for possible symptomatic anemia. 2D echo RE shortness of breath. Outpatient PFTs. PT/OT eval. DVT prophylaxis, Lovenox subcu. Full code. MTDD
--- NOTE | 2017-05-08 14:52 | ECHOCARDIOGRAM REPORT ---
*NOTICE TO RECEIVING LIBERTARIAN AGENCY This information is strictly Confidential and protected under [place] law. [place] law prohibits you from making any further disclosure of this information unless further disclosure is expressly permitted by the written consent of the person to whom it pertains or is authorized by law. A general authorization for the release of medical or other information is not sufficient for this purpose. Hospital accepts no responsibility if the information is made available to any other person, INCLUDING THE PATIENT. Interpretation Summary * Name: MARYANN RAHMAN SR Study Date: 05/08/2017 06:34 AM BP: 120/70 mmHg * Patient Location: [id number]\E423\S\1 HR: 88 * : 1945 (M/d/yyy) Gender: Male Height: 70 in * Age: 72 yrs Ethnicity: [place] Weight: 205 lb * Ordering Physician: Getachew Mccall * Referring Physician: Juan Francisco Frederick * Performed By: Tomy Faulkner [facility] * * Reason For Study: SOB * BSA: 2.1 m2 * Grossly normal valvular structure and function. * -- Conclusions -- * The left ventricle is normal in size. * Left ventricular systolic function is normal. * Ejection Fraction = 60-65%. * The right ventricular systolic function is normal. * The left atrial size is normal. * Right atrial size is normal. * Grossly normal valvular structure and function. Procedure Details * A complete two-dimensional transthoracic echocardiogram was performed (2D, M-mode, Doppler and color flow Doppler). * The study was technically difficult. * The study was technically limited. * There were technical limitations due to patient'spoor positioning * A contrast injection of Definity was performed to improve assessment of LV function. * Contrast was injected into an intravenous site in the right arm. * One vial of Definity ultrasound contrast was diluted in normal saline to a total volume of 10 ml. A total of '2' ml of solution was administered during imaging. * Lot # [id number] of Definity utilized for procedure. * Expiration date . * The attending nurse who injected the contrast agent was Miguel Salinas RN. * Patient experienced severe back after administering Definity. Left Ventricle * The left ventricle is normal in size. * There is normal left ventricular wall thickness. * Ejection Fraction = 60-65%. * Left ventricular systolic function is normal. Right Ventricle * The right ventricle is normal size. * The right ventricular systolic function is normal. Atria * The left atrial size is normal. * Right atrial size is normal. * There is no evidence of atrial septal defect, but resolution does not allow assessment for a patent foramen ovale. Mitral Valve * The mitral valve anatomy is normal. * Significant mitral regurgitation is absent. Aortic Valve * The aortic valve is not well visualized. * No hemodynamically significant valvular aortic stenosis. * There is no significant aortic regurgitation. Pulmonic Valve * The pulmonic valve is not well visualized. Great Vessels * The aortic root and proximal ascending aorta are normal sized. Pericardium/Pleural * There is no pericardial effusion. MMode 2D Measurements and Calculations IVSd 0.94 cm IVSs 1.2 cm LVIDd 4.7 cm LVIDs 2.9 cm LVPWd 1.0 cm LVPWs 1.1 cm IVS/LVPW 0.91 FS 37.3 % EDV(Teich) 99.9 ml ESV(Teich) 32.7 ml EF(Teich) 67.3 % EDV(cubed) 100.6 ml ESV(cubed) 24.8 ml EF(cubed) 75.3 % % IVS thick 30.0 % % LVPW thick 4.2 % LV mass(C)d 158.3 grams LV mass(C)dI 75.0 grams/m\S\2 LV mass(C)s 97.7 grams LV mass(C)sI 46.3 grams/m\S\2 SV(Teich) 67.2 ml SI(Teich) 31.9 ml/m\S\2 SV(cubed) 75.8 ml SI(cubed) 35.9 ml/m\S\2 Ao root diam 3.6 cm Ao root area 10.2 cm\S\2 ACS 1.8 cm LA dimension 3.6 cm LA/Ao 0.99 LVAd ap4 21.1 cm\S\2 LVLd ap4 6.7 cm EDV(MOD-sp4) 55.5 ml LVAs ap4 12.7 cm\S\2 LVLs ap4 6.4 cm ESV(MOD-sp4) 20.2 ml EF(MOD-sp4) 63.6 % LVAd ap2 30.4 cm\S\2 LVLd ap2 8.2 cm EDV(MOD-sp2) 92.5 ml LVAs ap2 19.0 cm\S\2 LVLs ap2 7.6 cm ESV(MOD-sp2) 39.9 ml EF(MOD-sp2) 56.9 % SV(MOD-sp4) 35.3 ml SI(MOD-sp4) 16.7 ml/m\S\2 SV(MOD-sp2) 52.6 ml SI(MOD-sp2) 24.9 ml/m\S\2 Doppler Measurements and Calculations MV E max arturo 83.9 cm/sec MV A max arturo 92.6 cm/sec MV E/A 0.91 MV P1/2t max arturo 85.5 cm/sec MV P1/2t 57.8 msec MVA(P1/2t) 3.8 cm\S\2 MV dec slope 433.7 cm/sec\S\2 MV dec time 0.28 sec Ao V2 max 118.8 cm/sec Ao max PG 5.6 mmHg Ao max PG (full) 1.5 mmHg LV V1 max PG 4.2 mmHg LV V1 max 101.9 cm/sec PA V2 max 105.9 cm/sec PA max PG 4.5 mmHg TR max arturo 234.8 cm/sec
[2017-05-08] MEDS ORDERED: NURSING DECISION MEDICATION ORDER SCH (15:45)
[2017-05-08 16:10] LABS: HEMATOCRIT 24.2 % (42-52)
--- NOTE | 2017-05-08 17:08 | Discharge Instructions ---
Discharge Instructions Date of Service May 08, 2017. Admission Reason for Admission: Symptomatic Anemia Discharge Discharge Diagnosis / Problem: ANEMIA /METASTATIC MELANOMA Discharge Goals Goal(s): Improve disease control, Diagnostic testing, Therapeutic intervention Activity Recommendations Activity Limitations: resume your previous activity . Instructions / Follow-Up Instructions / Follow-Up HOSPITAL FOLLOW UP : 05/11/2017 1:00 PM Vic Salinas MD [facility] LAB WORK : COMPLETE BLOOD COUNT ON Thursday05/11/17 Current Hospital Diet Patient's current hospital diet: Regular Diet Discharge Diet Recommended Diet: Regular Diet Pending Studies Studies pending at discharge: yes List of pending studies: LAB WORK : COMPLETE BLOOD COUNT ON Thursday05/11/17 Medical Emergencies . Who to Call and When: Medical Emergencies: If at any time you feel your situation is an emergency, please call 911 immediately. . Non-Emergent Contact Non-Emergency issues call your: Primary Care Provider . . "Provider Documentation" section prepared by Cherry Allen. . VTE Core Measure Inpt VTE Proph given/why not?: Hussein Huertas, SCD's
--- NOTE | 2017-05-08 17:22 | Discharge Summary ---
Discharge Summary Date of Service May 08, 2017. Discharge Summary Admission Date: May 08, 2017 at 00:32 Discharge Date: May 08, 2017 Discharge Disposition: Home Principal Diagnosis: ANEMIA /METASTATIC MELANOMA Procedures: ECHO shows normal LV function : The left ventricle is normal in size. Left ventricular systolic function is normal. Ejection Fraction = 60-65%. The right ventricular systolic function is normal. The left atrial size is normal. Right atrial size is normal. Medication Reconciliation Continued Medications: Docusate Sodium (Colace) 100 Mg Cap 1 CAP PO BID Ferrous Sulfate (Kp Ferrous Sulfate) 325 Mg Tab 325 MG PO BID, TAB 3 Refills Hydrocortisone (Cortef) 10 Mg Tab 10 MG PO QPM Hydrocortisone (Cortef) 10 Mg Tab 2 TABS PO QAM Lorazepam (Ativan) 1 Mg Tab 1 MG PO BID PRN for Anxiety Omeprazole (Prilosec) 20 Mg Capcr 20 MG PO QAM Referrals At Discharge Follow up Referrals: Physician Referral - 05/11/17 with Vic Salinas M.D. Admission Information HPI (per Admitting provider): DATE OF ADMISSION: 05/08/2017 PRIMARY CARE DOCTOR: Dr. Salinas. CHIEF COMPLAINT: Weakness, abnormal blood work. HISTORY OF PRESENT ILLNESS: History obtained from the patient and records. Medical history significant for recurrent melanoma, status post surgery with newly diagnosed adrenal mets, status post recent surgery, hypertension , past tobacco abuse, LILLIANA on CPAP. In 2013, the patient had removal of trunk melanoma. November 2016, the patient noted major decline in energy and sense of well being and major weight loss. He was found to have bilateral adrenal masses left greater than the right on CT 02/2017. Possible adrenal insufficiency as per [facility] Endocr[place]ology evaluation. Started on steroid maintenance Rx. Seen at [facility]. Patient underwent left laparoscopic adrenalectomy last 04/14/2017. Preop hemoglobin noted to be 8.1, 7.8 on discharge. Outpatient GI workup done a few weeks later. EGD last 04/23/2017 showed normal esophagus, hiatal hernia, no Anant ulcers. Colonoscopy showed diverticulosis, internal hemorrhoids. As per patient, a few days after surgery, patient noted shortness of breath on exertion. No chest pain, no cough symptoms. Symptoms worsened after colonoscopy prep. Denies unusual depression. Feels rested in the morning after wearing CPAP mask overnight. Patient had follow-up [facility] urologist 05/06/2017. Pathology came out as metastatic melanoma for removed left adrenal mass. Right adrenal mass suspicious for metastatic disease as well. Tumor testing, PET scan, outpatient oncology referral recommended. Consideration for right adrenalectomy pending staging workup. Patient seen by [facility] [place]cology yesterday. Outpatient hemoglobin noted to be 7.1. The patient sent to the Emergency Room. Repeat hemoglobin noted to be 7.1. Packed RBC transfused in the ER. MEDICAL HISTORY: As above. SURGERIES: Adrenalectomy, skin cancer surgery. HOME MEDICATIONS: Include Colace, ferrous sulfate, Cortef, Ativan, Prilosec. ALLERGIES: SIMVASTATIN. FAMILY HISTORY: Colon cancer, heart disease, stroke. PERSONAL AND SOCIAL HISTORY: Past tobacco abuse. Past alcohol abuse. 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 Physical Exam (per Admitting): REVIEW OF SYSTEMS: As per HPI, all other ROS negative. PHYSICAL EXAMINATION: VITAL SIGNS: Blood pressure was noted to be 113/65, pulse rate 89, RR 22, temperature 36.7, sats 99 on room air. GENERAL: Noted to be slightly irate. No respiratory distress. SKIN: Pallor, warm. HEENT: Partial alopecia, pink palpebral conjunctivae. No ptosis. Dry buccal mucosa. NECK: No tenderness. Supple. CHEST: No tenderness. Clear to auscultation. CARDIOVASCULAR: Regular rate and rhythm. Palpable LE pulses. ABDOMEN: Some distention. Nontender. EXTREMITIES: No edema. No gross deformities. No tenderness NEUROLOGIC: No gross focality. Coherent. Hospital Course SOB /JACOBO : possible due to Anemia ordered for PRBC transfusion ECHO ordered to assess LV function will benefit with out pt pulmonary function test ANEMIA : possible anemia of chronic disease last Hb on 05/05 was ~8 Presented with HB 7.1 with symptom of weakness and JACOBO ordered for PRBC tx , getting 2 units of PRBC tx follow repeat H&H post transfusion for adequate correction low MCV , denies of any dark stool had EGD /Colonoscopy work up on 04/23/17 for fe deficiency anemia EGD -normal study Colonoscopy : diverticulosis in sigmoid colon, internal hemorrhoids follow CBC on Fe supplement RECENT ADRENAL SURGERY /RECURRENT MELANOMA history of melanoma of the right shoulder S/p resection in 11/02/2013 found to have bilateral adrenal masses s/p open left adrenalectomy on 2016. . found to be metastatic melanoma cont out pt follow up with Heme Onc -scheduled to see Dr Frederick on 05/22/17 Cont on Hydrocortisone 20 mg in AM /10 mg at PM DVT PROPHYLAXIS scd and teds ambulate will avoid pharmacological anticoagulation due to anemia DISPOSITION expected to be discharged home when medically stable Medicine follow up with Dr Salinas Oncology follow up with Dr Frederick ATTENDING NOTE : repeat Lab work : at 4 pm hb improved to 7.9 after 2 units of PRBC transfusion pt reports of feeling well , no JACOBO , SOB or dizzy spell ECHO shows normal LV function : The left ventricle is normal in size. Left ventricular systolic function is normal. Ejection Fraction = 60-65%. The right ventricular systolic function is normal. The left atrial size is normal. Right atrial size is normal. pt requests to be discharged home scheduled for Hospital follow up on Thursday05/11/17 . Lab script given for CBC to be checked on same day pt is stable to be discharged home today Total time spent on discharge = 35 mins This includes examination of the patient, discharge planning, medication reconciliation, and communication with other providers. Discharge Instructions Discharge Instructions Date of Service May 08, 2017. Admission Reason for Admission: Symptomatic Anemia Discharge Discharge Diagnosis / Problem: ANEMIA /METASTATIC MELANOMA Discharge Goals Goal(s): Improve disease control, Diagnostic testing, Therapeutic intervention Activity Recommendations Activity Limitations: resume your previous activity . Instructions / Follow-Up Instructions / Follow-Up HOSPITAL FOLLOW UP : 05/11/2017 1:00 PM Vic Salinas MD [facility] LAB WORK : COMPLETE BLOOD COUNT ON Thursday05/11/17 Current Hospital Diet Patient's current hospital diet: Regular Diet Discharge Diet Recommended Diet: Regular Diet Pending Studies Studies pending at discharge: yes List of pending studies: LAB WORK : COMPLETE BLOOD COUNT ON Thursday05/11/17 Medical Emergencies . Who to Call and When: Medical Emergencies: If at any time you feel your situation is an emergency, please call 911 immediately. . Non-Emergent Contact Non-Emergency issues call your: Primary Care Provider . . "Provider Documentation" section prepared by Cherry Allen. . VTE Core Measure Inpt VTE Proph given/why not?: Hussein Huertas, SCD's Additional Copies To Vic Salinas M.D. Gray, Keriann N., MD
--- NOTE | 2017-05-12 12:50 | EDITING REQUIRED CODING QUERY ---
CODING QUERY To promote full compliance with coding requirements relating to patient care, provider participation is requested in all cases of squeegee operator uncertainty. Please assist us with the question(s) below: Coding Question(s): There is documentation of ANEMIA/METASTATIC MELANOMA on the Discharge Summary with documentation in the record and the Discharge Summary of ANEMIA: possible anemia of chronic disease. Please clarify below, in your clinical opinion. ( x) Possible Anemia of Chronic Disease is from Neoplastic Disease. Please specify below the Neoplasm site: ( x ) Neoplasm of the RT Adrenal Gland ( ) Other Neoplasm: Specify ( ) Possible Anemia of Chronic Disease, other than Neoplastic Disease. Specify the Chronic Disease: Physician's Response(s): Thank you Kelly Romero Principal Diagnosis: "_that condition established after study, to be chiefly responsible for occasioning the admission of the patient to the hospital for care." Co-Existing Principal Diagnosis: "_when two or more diagnoses equally meet the criteria for principal diagnosis as determined by the circumstances of admission, diagnostic work up, and/or therapy provided, and the Alphabetic Index, Tabular List, or another coding guideline does not provide sequencing direction, any one of the diagnoses may be sequenced first." "When the physician has documented what appears to be a current diagnosis in the body of the record, but has not included the diagnosis in the final diagnostic statement, the physician should be asked whether the diagnosis should be added." ([facility] 2 QTR90. p3-4)
== END 2017-05-08 17:58 | disposition home or self-care (01) | DRG 644 ==
LOC: C.EDB 20:07 → C.4E 05-08 00:32 → ENRESERV 05-08 01:16
PROVIDERS: ADMIT Hospitalist; ATTEND Hospitalist
DX: C74.91 Malignant neoplasm of unspecified part of right adrenal gland (principal); E27.40 Unspecified adrenocortical insufficiency; D63.0 Anemia in neoplastic disease; G47.33 Obstructive sleep apnea (adult) (pediatric); I10 Essential (primary) hypertension; D50.9 Iron deficiency anemia, unspecified; Z51.81 Encounter for therapeutic drug level monitoring; Z79.899 Other long term (current) drug therapy; Z79.52 Long term (current) use of systemic steroids; Z85.820 Personal history of malignant melanoma of skin; Z85.89 Personal history of malignant neoplasm of other organs and systems; Z98.890 Other specified postprocedural states; Z87.891 Personal history of nicotine dependence; Z80.0 Family history of malignant neoplasm of digestive organs; Z82.3 Family history of stroke; Z82.49 Family history of ischemic heart disease and other diseases of the circulatory system

== ENCOUNTER → 2018-03-03 | Outpatient (CLI) | payer OTHER ==
[~2018-03-03] MED LIST changes: +ACET-1256 PO; +FERR1TAB13 PO; -OXYC1TAB3 PO
--- NOTE | 2018-03-03 14:03 | DIAGNOSTIC IMAGING REPORT ---
BRAIN WITHOUT CONTRAST HISTORY: Melanoma METISTATIC MELANOMA TECHNIQUE: Multiplanar multisequence MRI of the brain was performed without the use of contrast. COMPARISON STUDY: None. FINDINGS: There are no areas of restricted diffusion to suggest acute infarction. The midline structures are intact. The paranasal sinuses are clear. The mastoid air cells are clear. The ventricles and sulci are within normal limits for age. There is no mass, hematoma, midline shift. The major vascular flow-voids at the skull base are well maintained. IMPRESSION: No acute intracranial abnormality. Age-related atrophy and mild chronic small vessel change. The above report was generated using voice recognition software. It may contain grammatical, syntax or spelling errors. Electronically signed by: Mateo Yung M.D. 03/03/2018 2:01 PM Dictated Date/Time: 03/03/2018 1:59 PM
--- NOTE | 2018-03-03 14:23 | DIAGNOSTIC IMAGING REPORT ---
ABDOMEN WITHOUT CONTRAST CLINICAL HISTORY: 72 years-old Male presenting with METASTATIC MELANOMA. TECHNIQUE: Multisequence, multiplanar MR imaging of the abdomen was performed before and after the administration of intravenous contrast. IV contrast: None. COMPARISON: CTA chest from 05/08/2017. FINDINGS: Localizer images: Unremarkable. Lung bases: Minimal basilar opacities, likely atelectasis. Normal heart size. No pericardial or pleural effusion. Liver: Normal morphology. Hepatic fat fraction measures 7.5% indicative of mild steatosis. No liver lesion. Patent hepatic vasculature. Biliary: No intrahepatic or extrahepatic biliary ductal dilatation. Normal gallbladder. Pancreas: Normal. Spleen: Significant interval decrease in the two T2 hypointense, T1 hyperintense splenic lesions measuring 1.6 cm, previously 4.2 cm and 4.9 cm. Adrenal glands: Significant interval decrease in size of the heterogeneously T2 hyperintense, T1 hyperintense right adrenal gland lesion, which measures 3.3 cm, previously 7.6 cm. Kidneys and ureters: Innumerable cysts within the enlarged bilateral kidneys. Several of these lesions contain layering T2 hypointense material, likely old blood products or protein. Additionally, there are several homogeneously T2 hypointense lesions, likely hemorrhagic or proteinaceous cysts. Mild distention of upper pole calyces and left kidney. No hydronephrosis. Bowel: Normal. No bowel obstruction. Peritoneal cavity: No free fluid. Lymph nodes: No enlarged lymph nodes in the abdomen. Vasculature: Aorta and IVC patent and normal in caliber. Abdominal wall: Normal. Musculoskeletal: Degenerative changes of the spine. IMPRESSION: 1. Significant interval decrease in size of the 2 splenic lesions and right adrenal gland lesion compatible with treatment response. 2. Mild hepatic steatosis. 3. Findings consistent with autosomal dominant polycystic kidney disease. Electronically signed by: Seven Ponce M.D. 03/03/2018 2:21 PM Dictated Date/Time: 03/03/2018 2:00 PM
== END | disposition home or self-care (01) ==
LOC: C.MRIBC 11:31
PROVIDERS: ATTEND Internal Medicine Hematology & Oncology
DX: C79.9 Secondary malignant neoplasm of unspecified site (principal)

== ENCOUNTER 2018-12-03 13:01 | Inpatient (IN) ==
[2018-12-03] MEDS ORDERED: SODIUM CHLORIDE 0.9% 1000ML 1,000 ML IV ONE (13:57)
[2018-12-03] MEDS ORDERED: dilTIAZem HCl 5 MG/ML 5 ML VIAL IV STA (14:10)
[2018-12-03] MEDS ORDERED: CALCIUM GLUCONATE 10% 1,000 MG in SODIUM CHLORIDE 0.9% 50 ML IV STA (14:10)
[2018-12-03] MEDS ORDERED: HYDROCORTISONE SOD SUCCINATE 100 MG/2 ML VIAL IV STA (14:53)
[2018-12-03] MEDS ORDERED: AMIODARONE / D5W 150 MG/100 ML BAG IV ONE (15:49)
[2018-12-03 15:51] LABS: Albumin Level 2.6 gm/dl (3.4-5.0); Calcium 8.9 mg/dl (8.5-10.1); Creatinine Clr Calc Pharmacy 32.4 ml/min; Est GFR (African American) 24.4; Est GFR (Non-African American) 21.1; Magnesium 1.4 mg/dl (1.8-2.4)
[2018-12-03 15:58] LABS: Albumin Globulin Ratio 0.7 (0.9-2); Bilirubin,Total 0.8 mg/dl (0.2-1); Globulin 3.6 gm/dl (2.5-4.0); Total Protein 6.2 gm/dl (6.4-8.2); Troponin I 0.062 ng/ml (0-0.045)
[2018-12-03 16:31] LABS: Hematocrit (blood only) 43.4 % (42-52); Hemoglobin 14.5 g/dL (14.0-18.0); Mean Corpuscular Hgb Conc 33.4 g/dL (32-36); Mean Corpuscular Volume 82.7 fL (80-100); Mean Platelet Volume 10.6 fL (7.4-10.4); Platelet Count 143 K/uL (130-400); RDW Standard Deviation 45.2 fL (36.4-46.3); Red Blood Count 5.25 M/uL (4.7-6.1); White Blood Count 4.22 K/uL (4.8-10.8)
[2018-12-03] MEDS ORDERED: AMIODARONE IV BOLUS / DRIP IV STA (16:40)
[2018-12-03] MEDS ORDERED: AMIODARONE / D5W 360 MG/200 ML BAG IV SCH ×2 (16:45→22:41)
[2018-12-03 17:06] LABS: Basophils # (auto) 0.02 K/uL (0-0.2); Basophils % (auto) 0.5 %; Eosinophils # (auto) 0.01 K/uL (0-0.5); Eosinophils % (auto) 0.2 %; Immature Granulocytes # (auto) 0.02 K/uL (0.00-0.02); Immature Granulocytes % (auto) 0.5 %; Lymphocytes # (auto) 1.26 K/uL (1.2-3.4); Lymphocytes % (auto) 29.9 %; Monocytes # (auto) 0.26 K/uL (0.11-0.59); Monocytes % (auto) 6.2 %; Neutrophils # (auto) 2.65 K/uL (1.4-6.5); Neutrophils % (auto) 62.7 %
--- NOTE | 2018-12-03 17:11 | XRay Report ---
XR chest 1V portable CLINICAL HISTORY: sob, cough, r/o infection COMPARISON STUDY: Chest radiograph May 22, 2017. PET/CT August 04, 2018. FINDINGS: Right axillary surgical clips are incidentally noted. Cardiomediastinal silhouette is stabl e. There is no pneumothorax or pleural effusion. There is no consolidation to suggest pneumonia. Pulm onary vascularity is normal. IMPRESSION: No acute cardiopulmonary findings. Electronically signed by: Cuong Rose M.D. 12/03/2018 5:09 PM
--- NOTE | 2018-12-03 17:14 | Emergency Department Note ---
ED Visit Note I, [place]ia Leroy, PGY-2, saw and assisted in the care of this patient with Dr. Beebe. . Resident Activity Tracking Resident Involvement: Resident Care Provided Care Provided: Adult ED : Fever Qualifiers: Fever type: unspecified Qualified Code(s): R50.9 - Fever, unspecified
--- NOTE | 2018-12-03 17:25 | Cardiology Consultation ---
Date of Consultation December 03, 2018 Assessment & Plan (1) Wide-complex tachycardia: ECGs reviewed with an irregular wide-complex rhythm concerning for ventricular arrhythmia versus paroxysmal atrial fibrillation with rapid ventricular response. Possible fusion beats are present, however, at slower rates the rhythm appears to be atrial fibrillation. QRS complexes are not concordant through the precordial leads, and negative R-wave in AVR. Mildly reduced LV function per bedside echo making atrial fibrillation more likely in this clinical scenario. Patient treated with IV amiodarone and intravenous heparin. Duration of arrhythmia less than 24 hours per history. Patient is hemodynamically stable. (2) Cardiomyopathy: Mild LV systolic dysfunction noted on resting 2D transthoracic echocardiogram. Possibly related to treatment of malignant melanoma with dabrafenib + trametinib which carry an approximately 3 to 11% of cardiomyopathy. (3) HECTOR (acute kidney injury): Recommend IV hydration. (4) Fever: (5) Elevated troponin: (6) Metastatic malignant melanoma: (7) Adrenal insufficiency: History of Present Illness Reason for Consultation: Wide-complex tachycardia Requesting Physician: Dr. Beebe Attending Physician: Dr. Bales History of Present Illness 73-year-old male presents the emergency department secondary to fevers. Patient noted chills at home. Mild dyspnea reported. In the ER he was noted of wide- complex tachycardia with heart rates ranging up to 170 bpm. ECG demonstrates an irregular wide-complex tachycardia with possible fusion beats. Patient denies chest pain or palpitations currently. No orthopnea, PND, or lower extremity edema. Bedside echocardiogram performed demonstrating mild LV systolic dysfunction, however, functional analysis limited by tachycardia. He was initially treated with Cardizem which did not have significant effect on heart rate. ECG discussed with electrophysiology. IV amiodarone initiated. Allergies Allergy/AdvReac Type Severity Reaction Status Date / Time perflutren Allergy Intermediate GI SYMPTOMS Verified 12/03/18 15:15 propylene glycol Allergy Intermediate GI SYMPTOMS Verified 12/03/18 15:15 simvastatin Allergy Unknown JOINT AND Verified 12/03/18 15:15 MUSCLE PAIN Home Medications Home Medications Medication Instructions Recorded Confirmed Type amlodipine 5 mg PO QAM 04/20/18 12/03/18 History cholecalciferol (vitamin D3) 1,000 unit PO QAM 04/20/18 12/03/18 History [Vitamin D3] docusate sodium [Colace] 100 mg PO BID 04/20/18 12/03/18 History hydrocortisone 20 mg PO UD 04/20/18 12/03/18 History pramipexole 0.5 mg tablet 0.5 mg PO UD 06/01/18 12/03/18 History lorazepam 1 mg tablet 1 mg PO BID PRN tab 08/10/18 12/03/18 History ondansetron HCl 4 mg tablet 4 mg PO Q8H PRN tab 08/10/18 12/03/18 History Mekinist 1 mg PO QAM 12/03/18 12/03/18 History dabrafenib 150 mg PO Q12 12/03/18 12/03/18 History metoprolol succinate 25 mg PO BID #60 tab 12/10/18 Rx torsemide 5 mg PO QAM #30 tab 12/10/18 Rx warfarin [Coumadin] 3 mg PO DAILY #30 tab 12/10/18 Rx Patient History Family History Father No problems noted. Mother Colon cancer, Onset Age: 85 Chemo and Resection - Alive and well now Sister Breast cancer, Onset Age: 55 Had Radiation - Alive and well now Sister No problems noted. Sister No problems noted. Sister No problems noted. Sister No problems noted. Brother No problems noted. Son No problems noted. Son No problems noted. Social History Preferred Language: Uzbek Communication Ability: Effective Visual Impairment: Limited Hearing Ability: Hard of Hearing Beliefs That Will Affect Care: None marital status: Single Current Living Situation: Significant Other current occupational status: retired current occupation: Retired - [employer] Feels Safe at Home: Yes Smoking Status: Never smoker Second Hand Exposure: No Hx Alcohol Use: No Hx Substance Use: No caffeine: Yes (2 cups of coffee/day ) during the past year weight has: remained stable Review of Systems Review of Systems: All systems reviewed & are unremarkable except as noted in HPI & below Physical Exam Physical Exam: General: NAD, AAO x3, well nourished. HEENT: Normocephalic. Atraumatic. Conjunctiva pink, no scleral icterus. Neck: No carotid bruits, the carotid upstrokes are brisk. No JVD. No HJR Heart: Tachycardic, normal S-1 and S-2 no S-3 or S-4 gallop. No murmurs or rub appreciated. PMI is not displaced. No RV heave. Lungs: Clear bilateral without rales , rhonchi, or wheeze. Abdomen: Normal bowel sounds. Soft. Nontender. No masses or organomegaly. No abdominal bruits. Extremities: No clubbing, cyanosis, or edema. Pulses: radial=2/4, Dorsalis pedis =2/4, posterior tibial=2/4. Neuro: Cranial nerves grossly intact. No focal motor deficit. Results & Data Vital Signs (Past 12 Hours) Vital Signs Temp Pulse Pulse Resp BP BP Pulse Ox 12/03/18 16:16 162 H 28 H 160/83 H 96 12/03/18 16:11 159 H 35 H 160/83 H 96 12/03/18 16:10 128 H 28 H 97 12/03/18 16:01 153 H 36 H 137/109 H 95 12/03/18 16:00 149 H 37 H 96 12/03/18 15:52 160 H 37 H 124/65 96 12/03/18 15:50 156 H 25 H 93 12/03/18 15:42 148 H 40 H 116/84 96 12/03/18 15:40 147 H 27 H 95 12/03/18 15:32 140 H 35 H 95 12/03/18 15:31 145 H 38 H 148/85 H 96 12/03/18 15:30 163 H 37 H 95 12/03/18 15:21 152 H 29 H 122/89 12/03/18 15:20 138 H 37 H 93 12/03/18 15:13 160 H 33 H 150/97 H 92 12/03/18 15:10 153 H 37 H 98 12/03/18 15:00 141 H 38 H 98 12/03/18 14:56 136 H 37 H 134/90 99 12/03/18 14:52 155 H 38 H 142/75 H 12/03/18 14:50 144 H 30 H 12/03/18 14:40 167 H 31 H 99 12/03/18 14:34 160 H 29 H 122/83 97 12/03/18 14:30 166 H 30 H 87 L 12/03/18 14:20 154 H 36 H 99 12/03/18 14:12 145 H 22 169/98 H 93 05/17/19 14:10 154 H 33 H 97 12/03/18 14:07 156 H 34 H 169/98 H 94 12/03/18 13:10 36.7 C 91 H 18 103/64 96 Laboratory Results Laboratory Results - last 24 hr 12/03/18 12/03/18 12/03/18 14:10 15:20 15:20 WBC 4.22 L RBC 5.25 Hgb 14.5 Hct 43.4 MCV 82.7 MCH 27.6 MCHC 33.4 RDW Std Deviation 45.2 RDW Coeff of Scottie 15.0 H Plt Count 143 MPV 10.6 H Immature Gran % (Auto) 0.5 Neut % (Auto) 62.7 Lymph % (Auto) 29.9 Humphreys % (Auto) 6.2 Eos % (Auto) 0.2 Baso % (Auto) 0.5 Immature Gran # (Auto) 0.02 Neut # (Auto) 2.65 Lymph # (Auto) 1.26 Humphreys # (Auto) 0.26 Eos # (Auto) 0.01 Baso # (Auto) 0.02 Sodium 130 L Potassium 4.0 Chloride 99 Carbon Dioxide 20 L Anion Gap 11.0 BUN 34 H Creatinine 2.87 H Est Cr Clr Drug Dosing 32.4 Est GFR ( Amer) 24.4 Est GFR (Non-Af Amer) 21.1 BUN/Creatinine Ratio 12.0 Glucose 96 Calcium 8.9 Magnesium 1.4 L Total Bilirubin 0.8 AST 117 H ALT 81 H Alkaline Phosphatase 103 Troponin I 0.062 H* Total Protein 6.2 L Albumin 2.6 L Globulin 3.6 Albumin/Globulin Ratio 0.7 L Influenza Type A Ag Neg for Influ A Influenza Type B Ag Neg for Influ B (1) Fever Fever type: unspecified Qualified Code(s): R50.9 - Fever, unspecified
[2018-12-03] MEDS ORDERED: Heparin IV Standard *NO* Bolus IV SCH (17:46)
[2018-12-03 18:08] LABS: Phosphorus 2.9 mg/dl (2.5-4.9)
--- NOTE | 2018-12-03 18:31 | History & Physical Report ---
Date of Service December 03, 2018 Assessment & Plan (1) Wide-complex tachycardia: History of atrial fibrillation with RVR as an outpatient since September of this year EKG in the ER did show atrial fibrillation with RVR rate of 140 with questionable VT Patient remains asymptomatic without any chest pain and/or palpitation He was started with intravenous amiodarone and heparin We will trend cardiac enzymes Echo has been done which showed EF of 40% and that is a decrease from 50% as in September of this year Cardiology consulted Possible Febrile Illness No fever but chills Patient is immunosuppressed Chest x-ray and UA unremarkable blood cultures were taken Will not start any antibiotics as of now Present on Admission?: Yes (2) Metastatic malignant melanoma: Diagnosed to have melanoma in 2013 Was in observation initially but 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 Did not tolerate initial chemo at the time and noted to have right abdomen metastasis He is a status post appendectomy and on replacement dose of hydrocortisone Currently he has been taking Tafinlar 150 mg twice daily and Mekinist 2 mg daily Discussed with oncologist and will hold this medicine for now (3) HECTOR (acute kidney injury): Noted to have acute kidney injury since September of this year Creatinine has been worse since the last exam He looks dry with increasing BUN We will give intravenous fluid and monitor PRP Replace electrolytes as needed (4) Hypertension: Noted to have hypertension in the emergency room Has been on amlodipine We will give intravenous Lopressor as needed to control blood pressure Hypertension may be secondary to chemotherapeutic medications (5) Sleep apnea: Uses CPAP at home (6) Adrenal insufficiency: Received stress dose of hydrocortisone in the ER We will continue with his usual dose of hydrocortisone (7) Acute hyponatremia: Sodium level was noted to be 130 Has been getting intravenous fluid We will recheck in a.m. Present on Admission?: Yes (8) Cardiomyopathy: His EF has been reduced since September from 54% to 40% as of today May be secondary to chemotherapeutic agent We are holding chemotherapeutic medicines now History of Present Illness Chief Complaint: Generalized weakness, chills with shortness of breath on exertion since Thursday last Primary Care Provider: Prasad Mcguire DO He is a 73-year-old male with significant past medical history including metastatic melanoma on Tafinlar 150 mg twice daily and Mekinist 2 mg daily for the last 3 weeks or so, adrenal insufficiency, hyperparathyroidism, acute kidney failure, adrenal insufficiency, hypertension,, obstructive sleep apnea on CPAP and type 2 diabetes has been complaining of feeling of weakness and tiredness associated with chills and shortness of breath on exertion since Thursday last. He denies any chest pain and/or palpitation. He does not have any abdominal pain nausea and/or vomiting and denies any problem with urine and her bowel habit. He denies any headache and blurred vision and no numbness and tingling involving any of the extremities. He generally weak but does not have any focal weakness or neuro deficit. In the ER he was noted to have atrial fibrillation/ventricular tachycardia with RVR and also noted to have acute on chronic kidney failure. He had any stat echo that did show decreasing EF to 40% from 50% which was in September of this year. He was evaluated by oxygen therapist and was started with intravenous amiodarone and heparin and was admitted to telemetry unit for continued care. He has history of atrial fibrillation noted in epic since September of this year and an echo was done in September showed EF of 50 to 54% without other significant abnormalities. He has been getting Tafinlar and Mekinist for his metastatic melanoma. The case was discussed with roll slicing machine tender and was holding these medications for now. Allergies Allergy/AdvReac Type Severity Reaction Status Date / Time perflutren Allergy Intermediate GI SYMPTOMS Verified 12/03/18 15:15 propylene glycol Allergy Intermediate GI SYMPTOMS Verified 12/03/18 15:15 simvastatin Allergy Unknown JOINT AND Verified 12/03/18 15:15 MUSCLE PAIN Home Medications Home Medications Medication Instructions Recorded Confirmed Type amlodipine 5 mg PO QAM 04/20/18 12/03/18 History cholecalciferol (vitamin D3) 1,000 unit PO QAM 04/20/18 12/03/18 History [Vitamin D3] docusate sodium [Colace] 100 mg PO BID 04/20/18 12/03/18 History hydrocortisone 20 mg PO UD 04/20/18 12/03/18 History pramipexole 0.5 mg tablet 0.5 mg PO UD 06/01/18 12/03/18 History lorazepam 1 mg tablet 1 mg PO BID PRN tab 08/10/18 12/03/18 History ondansetron HCl 4 mg tablet 4 mg PO Q8H PRN tab 08/10/18 12/03/18 History dabrafenib 150 mg PO Q12 12/03/18 12/03/18 History trametinib [Mekinist] 1 mg PO QAM 12/03/18 12/03/18 History Past Med/Surg History Family History Father No problems noted. Mother Colon cancer, Onset Age: 85 Chemo and Resection - Alive and well now Sister Breast cancer, Onset Age: 55 Had Radiation - Alive and well now Sister No problems noted. Sister No problems noted. Sister No problems noted. Sister No problems noted. Brother No problems noted. Son No problems noted. Son No problems noted. Social History Preferred Language: German Communication Ability: Effective Visual Impairment: Limited Hearing Ability: Hard of Hearing Claims Customer Service Representative Required: No Beliefs That Will Affect Care: None marital status: Single Current Living Situation: Significant Other current occupational status: retired current occupation: Retired - [employer] Other Information That Helps Us Care for You: No Feels Safe at Home: Yes Safety Concerns: Feels Safe At This Time Smoking Status: Never smoker Do You Dip or Chew Tobacco: No Second Hand Exposure: No Tobacco Cessation Education Requested by Patient: No Hx Alcohol Use: No Hx Substance Use: No caffeine: Yes (2 cups of coffee/day ) during the past year weight has: remained stable Review of Systems Review of Systems: All systems reviewed & are unremarkable except as noted in HPI & below Respiratory: + dyspnea on exertion Cardiovascular: + dyspnea and + lightheadedness Gastrointestinal: + nausea Neurologic: + generalized weakness Psychiatric: as per Subjective / HPI Physical Exam Physical Exam: Very anxious Constitutional: well developed, + acute distress (Minimal shortness of breath at rest but the patient denies) and + ill appearing Eyes: PERRL, conjunctivae normal, anicteric sclerae ENMT: external ear and nose normal, oropharynx normal Neck: trachea midline, no thyromegaly Respiratory: + respiratory distress and + cough Cardiovascular: Rate/Rhythm: + abnormal rate and + abnormal rhythm Heart Sounds: no murmur Gastrointestinal (Abdomen): normal bowel sounds, soft, nontender, no hepatosplenomegaly Musculoskeletal: No acute arthritis Neurologic: patellar DTR's 2+ bilat, sensation intact Psychiatric: A+Ox3, euthymic affect Lymphatic: no cervical or axillary lymphadenopathy Results & Data Vital Signs (Past 12 Hours) Vital Signs Temp Pulse Pulse Resp BP BP Pulse Ox 12/03/18 18:00 119 H 16 155/72 H 94 12/03/18 17:13 137 H 34 H 161/67 H 94 12/03/18 16:16 162 H 28 H 160/83 H 96 12/03/18 16:11 159 H 35 H 160/83 H 96 12/03/18 16:10 128 H 28 H 97 12/03/18 16:01 153 H 36 H 137/109 H 95 12/03/18 16:00 149 H 37 H 96 12/03/18 15:52 160 H 37 H 124/65 96 12/03/18 15:50 156 H 25 H 93 12/03/18 15:42 148 H 40 H 116/84 96 12/03/18 15:40 147 H 27 H 95 12/03/18 15:32 140 H 35 H 12/03/18 15:31 145 H 38 H 148/85 H 96 12/03/18 15:30 163 H 37 H 95 12/03/18 15:21 152 H 29 H 122/89 12/03/18 15:20 138 H 37 H 93 12/03/18 15:13 160 H 33 H 150/97 H 92 12/03/18 15:10 153 H 37 H 98 12/03/18 15:00 141 H 38 H 98 12/03/18 14:56 136 H 37 H 134/90 99 12/03/18 14:52 155 H 38 H 142/75 H 12/03/18 14:50 144 H 30 H 12/03/18 14:40 167 H 31 H 99 12/03/18 14:34 160 H 29 H 122/83 97 12/03/18 14:30 166 H 30 H 87 L 12/03/18 14:20 154 H 36 H 99 12/03/18 14:12 145 H 22 169/98 H 93 12/03/18 14:10 154 H 33 H 97 12/03/18 14:07 156 H 34 H 169/98 H 94 12/03/18 13:10 36.7 C 91 H 18 103/64 96 Laboratory Results Short CBC 12/03/18 Range/Units 15:20 WBC 4.22 L (4.8-10.8) K/uL Hgb 14.5 (14.0-18.0) g/dL Hct 43.4 (42-52) % Plt Count 143 (130-400) K/uL BMP 12/03/18 15:20 Sodium 130 L Potassium 4.0 Chloride 99 Carbon Dioxide 20 L BUN 34 H Creatinine 2.87 H Glucose 96 Calcium 8.9 Cardiac Enzymes 12/03/18 Range/Units 15:20 Troponin I 0.062 H* (0-0.045) ng/ml Liver Function 12/03/18 Range/Units 15:20 Total Bilirubin 0.8 (0.2-1) mg/dl AST 117 H (15-37) U/L ALT 81 H (12-78) U/L Alkaline Phosphatase 103 (45-117) U/L Albumin 2.6 L (3.4-5.0) gm/dl Medications Administered Current Inpatient Medications Acetaminophen (Tylenol) 650 mg PO Q4H PRN PRN Reason: Pain or Fever Stop: 01/02/19 17:53 Aspirin (Ecotrin Ectab) 81 mg PO QAM RENZO Stop: 01/03/19 08:59 Heparin Sodium/Dextrose () 1 ea IV ONE ONE; Protocol Stop: 12/03/18 17:47 Amiodarone HCl/Dextrose (Nexterone / D5w) 360 mg in 200 mls @ 33.333 mls/hr IV .Q6H RENZO Stop: 12/03/18 22:44 Last Admin: 12/03/18 17:09 Dose: 1 mg/min, 33.3 mls/hr Documented by: Amiodarone HCl/Dextrose (Nexterone / D5w) 360 mg in 200 mls @ 16.667 mls/hr IV .Q12H RENZO Stop: 01/02/19 22:40 Potassium Chloride/Sodium Chloride (Normal Saline W/20 Meq Kcl) 20 meq in 1,000 mls @ 150 mls/hr IV .Q6H40M RENZO Stop: 12/04/18 13:59 Magnesium Sulfate/Dextrose (Magnesium Sulfate / D5w) 1 gm in 100 mls @ 100 mls/hr IV Q1H RNEZO Stop: 12/03/18 19:59 Metoprolol Tartrate (Lopressor) 5 mg IV Q6 RENZO Stop: 01/02/19 17:59
--- NOTE | 2018-12-03 18:40 | Emergency Department Note ---
Entered by Steff Wolfe acting as a scribe for History of Present Illness General Chief complaint: Illness Stated complaint: CONGESTION, NO APPETITE, NAUSEA Time Seen by Provider: 12/03/18 13:22 Source: patient History of Present Illness Provider complaint: nausea Onset (ago): day(s) 5 Location: abdomen Pain Consistency: + constant Maximum Pain Intensity: 0 Quality: + other (nausea) Associated symptoms: + denies other symptoms (denies abdominal pain), + cough, + fever/chills (chills, unsure if he has been febrile ), + shortness of breath and + other (diarrhea) The patient is a 73 male who presents to the Emergency Department with complaints of nausea over the last 5 days. The patient also reports having chills and increased fatigue. 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 He states that he also has adrenal insufficiency as one of his adrenal glands was removed. The patient states that he started his chemotherapy treatment 3 weeks ago and was unable to take his medications yesterday and today due to nausea. He states that he is unsure if he has been febrile. He does report having a cough, shortness of breath, and foul-smelling urine. The patient also reports having diarrhea this morning. He denies having abdominal pain. He states that he has not been around anyone sick, has not eaten anything unusual, and has not had recent travel. Home Medications Home Medications Medication Instructions Recorded Confirmed Type amlodipine 5 mg PO QAM 04/20/18 12/03/18 History cholecalciferol (vitamin D3) 1,000 unit PO QAM 04/20/18 12/03/18 History [Vitamin D3] docusate sodium [Colace] 100 mg PO BID 04/20/18 12/03/18 History hydrocortisone 20 mg PO UD 04/20/18 12/03/18 History pramipexole 0.5 mg tablet 0.5 mg PO UD 06/01/18 12/03/18 History lorazepam 1 mg tablet 1 mg PO BID PRN tab 08/10/18 12/03/18 History ondansetron HCl 4 mg tablet 4 mg PO Q8H PRN tab 08/10/18 12/03/18 History dabrafenib 150 mg PO Q12 12/03/18 12/03/18 History trametinib [Mekinist] 1 mg PO QAM 12/03/18 12/03/18 History Allergies Allergy/AdvReac Type Severity Reaction Status Date / Time perflutren Allergy Intermediate GI SYMPTOMS Verified 12/03/18 15:15 propylene glycol Allergy Intermediate GI SYMPTOMS Verified 12/03/18 15:15 simvastatin Allergy Unknown JOINT AND Verified 12/03/18 15:15 MUSCLE PAIN Past Med/Surg History Medical History Anxiety (Chronic) Dyslipidemia (Chronic) History of immunotherapy (Chronic) Keytruda x 2 Cycles (had to stop after 2nd cycle) Current Opdivo q 2 weeks (currently on hold) - started 05/2017 - 04/2018 Adrenal insufficiency S/P LEFT ADRENALECTOMY- ON CHRONIC HYDROCORTISONE 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- IMMUNOTHERAPY Q 2 WEEKS (on hold) Chronic back pain Degenerative disc disease H/O transfusion of packed red blood cells S/P 2 UNITS (2016) Hypertension Morbid obesity Osteoarthritis Sleep apnea CPAP HS Stage 3 chronic kidney disease Surgical History History of colonoscopy 2016 History of esophagogastroduodenoscopy (EGD) 2017 History of tooth extraction Hx of 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 Mother Colon cancer, Onset Age: 85 Chemo and Resection - Alive and well now Sister Breast cancer, Onset Age: 55 Had Radiation - Alive and well now Sister No problems noted. Sister No problems noted. Sister No problems noted. Sister No problems noted. Brother No problems noted. Son No problems noted. Son No problems noted. Social History Preferred Language: [place] Communication Ability: Effective Visual Impairment: Limited Hearing Ability: Hard of Hearing Beliefs That Will Affect Care: None marital status: Single Current Living Situation: Alone current occupational status: retired current occupation: Retired - [employer] Feels Safe at Home: Yes Smoking Status: Never smoker Second Hand Exposure: No Hx Alcohol Use: No Hx Substance Use: No caffeine: Yes (2 cups of coffee/day ) during the past year weight has: remained stable Review of Systems See HPI for pertinent positives & negatives. and A total of 10 systems reviewed and were otherwise negative Physical Exam Vital Signs Vital Signs - 24 hr 12/03/18 13:10 12/03/18 14:07 12/03/18 14:10 Temperature 36.7 C Temperature Source Oral Sepsis Recent Fever Within 48 Hours No Sepsis New/Unexplained Change in Mental Status No Sepsis Action Taken by Nursing No Action Required Pulse Rate 91 H 156 H 154 H Pulse Rate [Apical] Pulse Rate from SpO2 Sensor 134 H 113 H Respiratory Rate 18 34 H 33 H Respiratory Depth Normal Blood Pressure 103/64 169/98 H Blood Pressure [Left Arm] Blood Pressure Mean 77 121 Blood Pressure Mean [Left Arm] Pulse Oximetry 96 94 97 Oxygen Delivery Method Room Air 12/03/18 14:12 12/03/18 14:20 12/03/18 14:30 Temperature Temperature Source Sepsis Recent Fever Within 48 Hours Sepsis New/Unexplained Change in Mental Status Sepsis Action Taken by Nursing Pulse Rate 154 H 166 H Pulse Rate [Apical] 145 H Pulse Rate from SpO2 Sensor 139 H 133 H Respiratory Rate 22 36 H 30 H Respiratory Depth Blood Pressure Blood Pressure [Left Arm] 169/98 H Blood Pressure Mean Blood Pressure Mean [Left Arm] 121 Pulse Oximetry 93 99 87 L Oxygen Delivery Method Room Air 12/03/18 14:34 12/03/18 14:40 12/03/18 14:50 Temperature Temperature Source Sepsis Recent Fever Within 48 Hours Sepsis New/Unexplained Change in Mental Status Sepsis Action Taken by Nursing Pulse Rate 160 H 167 H 144 H Pulse Rate [Apical] Pulse Rate from SpO2 Sensor 113 H 89 87 Respiratory Rate 29 H 31 H 30 H Respiratory Depth Blood Pressure 122/83 Blood Pressure [Left Arm] Blood Pressure Mean 96 Blood Pressure Mean [Left Arm] Pulse Oximetry 97 99 Oxygen Delivery Method 12/03/18 14:52 12/03/18 14:56 12/03/18 15:00 Temperature Temperature Source Sepsis Recent Fever Within 48 Hours Sepsis New/Unexplained Change in Mental Status Sepsis Action Taken by Nursing Pulse Rate 155 H 136 H 141 H Pulse Rate [Apical] Pulse Rate from SpO2 Sensor 94 H 107 H 103 H Respiratory Rate 38 H 37 H 38 H Respiratory Depth Blood Pressure 142/75 H 134/90 Blood Pressure [Left Arm] Blood Pressure Mean 97 104 Blood Pressure Mean [Left Arm] Pulse Oximetry 99 98 Oxygen Delivery Method 12/03/18 15:10 12/03/18 15:13 12/03/18 15:20 Temperature Temperature Source Sepsis Recent Fever Within 48 Hours Sepsis New/Unexplained Change in Mental Status Sepsis Action Taken by Nursing Pulse Rate 153 H 160 H 138 H Pulse Rate [Apical] Pulse Rate from SpO2 Sensor 128 H 109 H 107 H Respiratory Rate 37 H 33 H 37 H Respiratory Depth Blood Pressure 150/97 H Blood Pressure [Left Arm] Blood Pressure Mean 114 Blood Pressure Mean [Left Arm] Pulse Oximetry 98 92 93 Oxygen Delivery Method 12/03/18 15:21 12/03/18 15:30 12/03/18 15:31 Temperature Temperature Source Sepsis Recent Fever Within 48 Hours Sepsis New/Unexplained Change in Mental Status Sepsis Action Taken by Nursing Pulse Rate 152 H 163 H 145 H Pulse Rate [Apical] Pulse Rate from SpO2 Sensor 91 H 100 H 115 H Respiratory Rate 29 H 37 H 38 H Respiratory Depth Blood Pressure 122/89 148/85 H Blood Pressure [Left Arm] Blood Pressure Mean 100 106 Blood Pressure Mean [Left Arm] Pulse Oximetry 95 96 Oxygen Delivery Method 12/03/18 15:32 12/03/18 15:40 12/03/18 15:42 Temperature Temperature Source Sepsis Recent Fever Within 48 Hours Sepsis New/Unexplained Change in Mental Status Sepsis Action Taken by Nursing Pulse Rate 140 H 147 H 148 H Pulse Rate [Apical] Pulse Rate from SpO2 Sensor 104 H 120 H 104 H Respiratory Rate 35 H 27 H 40 H Respiratory Depth Blood Pressure 116/84 Blood Pressure [Left Arm] Blood Pressure Mean 94 Blood Pressure Mean [Left Arm] Pulse Oximetry 95 95 96 Oxygen Delivery Method 12/03/18 15:50 12/03/18 15:52 12/03/18 16:00 Temperature Temperature Source Sepsis Recent Fever Within 48 Hours Sepsis New/Unexplained Change in Mental Status Sepsis Action Taken by Nursing Pulse Rate 156 H 160 H 149 H Pulse Rate [Apical] Pulse Rate from SpO2 Sensor 131 H 114 H 121 H Respiratory Rate 25 H 37 H 37 H Respiratory Depth Blood Pressure 124/65 Blood Pressure [Left Arm] Blood Pressure Mean 84 Blood Pressure Mean [Left Arm] Pulse Oximetry 93 96 96 Oxygen Delivery Method 12/03/18 16:01 12/03/18 16:10 05/17/19 16:11 Temperature Temperature Source Sepsis Recent Fever Within 48 Hours Sepsis New/Unexplained Change in Mental Status Sepsis Action Taken by Nursing Pulse Rate 153 H 128 H 159 H Pulse Rate [Apical] Pulse Rate from SpO2 Sensor 146 H 129 H 138 H Respiratory Rate 36 H 28 H 35 H Respiratory Depth Blood Pressure 137/109 H 160/83 H Blood Pressure [Left Arm] Blood Pressure Mean 118 108 Blood Pressure Mean [Left Arm] Pulse Oximetry 95 97 96 Oxygen Delivery Method 12/03/18 16:16 12/03/18 17:13 12/03/18 18:00 Temperature Temperature Source Sepsis Recent Fever Within 48 Hours Sepsis New/Unexplained Change in Mental Status Sepsis Action Taken by Nursing Pulse Rate 137 H Pulse Rate [Apical] 162 H 119 H Pulse Rate from SpO2 Sensor 141 H Respiratory Rate 28 H 34 H 16 Respiratory Depth Blood Pressure 161/67 H Blood Pressure [Left Arm] 160/83 H 155/72 H Blood Pressure Mean 98 Blood Pressure Mean [Left Arm] 108 99 Pulse Oximetry 96 94 94 Oxygen Delivery Method Room Air Room Air Constitutional: Vital signs reviewed. Eyes: Pupils are equal round reactive to light. Conjunctiva are noninjected. ENT: Pharynx is clear without erythema or exudate. Mucous membranes are moist. Neck supple without meningeal signs. Respiratory: Scattered expiratory wheezes. Breath sounds are equal bilaterally. Cardiovascular: Tachycardic rate in the 140s and regular rhythm. No rubs or g allops. GI: Soft, nondistended and nontender. Bowel sounds are present. Musculoskeletal: No peripheral edema. No lower extremity tenderness. Integumentary: No cyanosis. Neurological: The patient is awake and alert. No focal deficits. Psychiatric: Normal affect. Course 1325: The patient was evaluated by Dr. Leroy-Resident. 1347: The patient was evaluated in room B11B. A history and physical were performed. 1502: The patient's heart rate was jumping into the 180s/190s and it looked like V tach on the monitor. I reviewed the patient's ECG with Dr. Hall- [facility] who stated it looked more like V tach and that we can treat with Amiodarone. The patient was given Cardizem and his heart rate went to 120 and stated that he felt better. 1607: Dr. Hall said that he ran the patient's ECG by an machine tool dresser who thinks that it is V tach. He is doing an echocardiogram now. He agrees with the amiodarone. 1643: Dr. Hall said that the patient's heart rate is still in the 130s. He recommended an Amiodarone drip. The patient's EF was preserved on the echo. 1702: Dr. Leroy discussed the patient's case with Lisset Collins who will evaluate the patient for further management. 1714: I discussed the patient's case with Dr. Finn who will evaluate the patient for further management. Consultations Consultation #1: Dr. Rendon Cardiology Time: 15:02 Consultation #2: Lisset Collins Time: 17:02 Consultation #3: Dr. Finn Time: 17:14 Administered Medications Amiodarone HCl/Dextrose (Nexterone / D5w) 360 mg in 200 mls @ 33.333 mls/hr IV .Q6H RENZO Stop: 12/03/18 22:44 Last Admin: 12/03/18 17:09 Dose: 1 mg/min, 33.3 mls/hr Documented by: [id number] Cosigned by: [id number] Discontinued Medications Diltiazem HCl (Cardizem) 10 mg IV NOW STA Stop: 12/03/18 14:11 Last Admin: 12/03/18 14:49 Dose: 10 mg Documented by: [id number] Cosigned by: [id number] Hydrocortisone Sodium Succinate (Solu-Cortef) 100 mg IV NOW STA Stop: 12/03/18 14:54 Last Admin: 12/03/18 15:07 Dose: 100 mg Documented by: [id number] Sodium Chloride (Nss 1000ml) 1,000 mls @ 999 mls/hr IV .Q1H1M ONE Stop: 12/03/18 14:57 Last Infusion: 12/03/18 15:46 Dose: 0 mls/hr Documented by: [id number] Admin: 12/03/18 14:29 Dose: 999 mls/hr Documented by: [id number] Calcium Gluconate 1,000 mg/ (Sodium Chloride) 60 mls @ 240 mls/hr IV NOW STA Stop: 12/03/18 14:24 Last Infusion: 12/03/18 15:46 Dose: 0 mls/hr Documented by: [id number] Admin: 12/03/18 14:29 Dose: 240 mls/hr Documented by: [id number] Amiodarone HCl/Dextrose (Nexterone / D5w) 150 mg in 100 mls @ 600 mls/hr IV ONE ONE Stop: 12/03/18 15:58 Last Infusion: 12/03/18 16:48 Dose: 0 mls/hr Documented by: [id number] Cosigned by: [id number] Admin: 12/03/18 16:03 Dose: 600 mls/hr Documented by: [id number] Cosigned by: [id number] Medical Decision Making Differential Diagnosis Differentials include afib, v tach, metabolic derangement, neutropenia, UTI, and pneumonia. Medical Records Attestation: I reviewed the patient's medical records. I did perform a limited focused review of portions of the patient's old chart on the electronic medical record. The patient is followed by oncology for metastatic melanoma. Home Medications Current Medication List: was personally reviewed by me Laboratory Data Attestation: I reviewed the patient's lab results. Result diagrams: 12/03/18 15:20 12/03/18 15:20 Lab Results 12/03/18 12/03/18 12/03/18 Range/Units 14:10 15:20 15:20 WBC 4.22 L (4.8-10.8) K/uL RBC 5.25 (4.7-6.1) M/uL Hgb 14.5 (14.0-18.0) g/dL Hct 43.4 (42-52) % MCV 82.7 (80-100) fL MCH 27.6 (25-34) pg MCHC 33.4 (32-36) g/dL RDW Std Deviation 45.2 (36.4-46.3) fL RDW Coeff of Scottie 15.0 H (11.5-14.5) % Plt Count 143 (130-400) K/uL MPV 10.6 H (7.4-10.4) fL Immature Gran % (Auto) 0.5 % Neut % (Auto) 62.7 % Lymph % (Auto) 29.9 % [place] % (Auto) 6.2 % Eos % (Auto) 0.2 % Baso % (Auto) 0.5 % Immature Gran # (Auto) 0.02 (0.00-0.02) K/uL Neut # (Auto) 2.65 (1.4-6.5) K/uL Lymph # (Auto) 1.26 (1.2-3.4) K/uL [place] # (Auto) 0.26 (0.11-0.59) K/uL Eos # (Auto) 0.01 (0-0.5) K/uL Baso # (Auto) 0.02 (0-0.2) K/uL Sodium 130 L (136-145) mmol/L Potassium 4.0 (3.5-5.1) mmol/L Chloride 99 (98-107) mmol/L Carbon Dioxide 20 L (21-32) mmol/L Anion Gap 11.0 (3-11) BUN 34 H (7-18) mg/dl Creatinine 2.87 H (0.6-1.4) mg/dl Est Cr Clr Drug Dosing 32.4 ml/min Est GFR ( Amer) 24.4 Est GFR (Non-Af Amer) 21.1 BUN/Creatinine Ratio 12.0 (10-20) Glucose 96 (70-99) mg/dl Calcium 8.9 (8.5-10.1) mg/dl Phosphorus 2.9 (2.5-4.9) mg/dl Magnesium 1.4 L (1.8-2.4) mg/dl Total Bilirubin 0.8 (0.2-1) mg/dl AST 117 H (15-37) U/L ALT 81 H (12-78) U/L Alkaline Phosphatase 103 (45-117) U/L Troponin I 0.062 H* (0-0.045) ng/ml Total Protein 6.2 L (6.4-8.2) gm/dl Albumin 2.6 L (3.4-5.0) gm/dl Globulin 3.6 (2.5-4.0) gm/dl Albumin/Globulin Ratio 0.7 L (0.9-2) Influenza Type A Ag Neg for Influ A (Neg) Influenza Type B Ag Neg for Influ B (Neg) Imaging Data Radiologist's Impression: Radiology results as stated below per my review and the radiologist's interpretation: XR chest 1V portable CLINICAL HISTORY: sob, cough, r/o infection COMPARISON STUDY: Chest radiograph May 22, 2017. PET/CT August 04, 2018. FINDINGS: Right axillary surgical clips are incidentally noted. Cardiomediastinal silhouette is stable. There is no pneumothorax or pleural effusion. There is no consolidation to suggest pneumonia. Pulmonary vascularity is normal. IMPRESSION: No acute cardiopulmonary findings. Electronically signed by: Cuong Rose M.D. 12/03/2018 5:09 PM ECG Data Attestation: I personally reviewed and interpreted this ECG as follows: Indication: SOB/dyspnea Rate (beats per minute): 140 Rhythm: atrial fibrillation (with RVR) Findings: + other (QRS 130 ms) and + LBBB Comparison ECG Date: from (05/22/17) Change: the following changes noted (LBBB and new atrial fibrillation) Additional Comments: repeat ECG: afib, 122, LBBB, QRS 134 Blood Pressure Blood Pressure Findings: Elevated blood pressure Blood Pressure Disposition: Referred to patients primary care provider [facility] Narrative I did evaluate the patient as noted above. Patient is presenting with generalized malaise. In triage she is not tachycardic but on my evaluation he is significantly tachycardic. IV access was established. The patient was placed on a continuous compliance monitor. I did order and personally review the patient's 12-lead EKG as described above. The patient appears to have a wide-complex tachycardia with heart rate in the 140s to 150s. The rhythm was very irregular and so I treated it as if it was A. fib. He is initially slightly hypotensive and so he was given a fluid bolus as well as IV calcium gluconate. He was then given 10 mg of IV Cardizem slowly. His heart rate did come down to the 120s. A second twelve-lead EKG was obtained which shows a similar wide-complex tachycardia. I did review the EKGs with Dr. Hall of cardiology. He was favoring V. tach over A. fib with RVR with aberrancy. He recommended treating patient with amiodarone. I did treat patient with amiodarone 150 mg IV. His heart rate did slow down but he is still in the 130s. He was started on a IV drip of amiodarone. I also treated patient with Solu-Cortef 100 mg IV due to his history of adrenal insufficiency. I did order and personally reviewed the images of the patient's chest x-ray as described above. There is no evidence of pneumonia. I did order a urine analysis. We are still waiting for a sample. I did order and review the patient's blood work as noted in the electronic medical record. He is hyponatremic. Potassium is normal. His creatinine is significantly elevated 2.8. His troponin is also elevated. His white count is slightly low. He did develop a fever here. I will hold off on antibiotic's until we get his urine analysis. Ulcers were obtained previously. Cardiology did evaluate the patient in the ED and performed an echocardiogram. I did discuss the case with the hospitalist and case preparer and liner. Resident Physician Supervision Note: I did perform an independent evaluation and examination of this patient as described. I also saw this patient in conjunction with the resident, Dr. Leroy, and guided management for the patient. Impression & Plan Wide-complex tachycardia, HECTOR (acute kidney injury), Fever, Elevated troponin, Adrenal insufficiency, Acute hyponatremia Critical Care Time I have personally spent 50 minutes of critical care time in the direct management of this patient. This includes bedside care, interpretation of diagnostic studies, and testing, discussion with consultants, patient, and family members, and other required patient management activities. This 50 minutes is in excess of all separately billable procedures. Critical Care Time: Yes Total Critical Care Time: 50 Discharge Plan Visit Data Chief Complaint: Illness Stated Complaint: CONGESTION, NO APPETITE, NAUSEA ED Provider: [facility] ED Midlevel Provider: [place] Leroy Discharge Problem: Wide-complex tachycardia, HECTOR (acute kidney injury), Fever, Elevated troponin, Adrenal insufficiency, Acute hyponatremia Patient Disposition: Being Evaluated by Hospitalist Forms Stand Alone Forms: My [facility] Prescriptions Prescriptions: No Action pramipexole [Mirapex] 0.5 mg tablet 0.5 mg PO UD RF: 0 ondansetron HCl 4 mg tablet 4 mg PO Q8H PRN (Reason: Nausea And Vomiting) RF: 0 docusate sodium [Colace] 100 mg Capsule 100 mg PO BID RF: 0 hydrocortisone 10 mg Tablet 20 mg PO UD RF: 0 cholecalciferol (vitamin D3) [Vitamin D3] 1,000 unit Capsule 1,000 unit PO QAM RF: 0 amlodipine 5 mg Tablet 5 mg PO QAM RF: 0 lorazepam [Ativan] 1 mg tablet 1 mg PO BID PRN (Reason: anxiety) RF: 0 dabrafenib 75 mg Capsule 150 mg PO Q12 RF: 0 Mekinist 2 mg tablet 1 mg PO QAM RF: 0 Referrals Referrals: Prasad Mcguire DO [Primary Care Provider] - Discharge Problem: Fever Qualifiers: Fever type: unspecified Qualified Code(s): R50.9 - Fever, unspecified The scribe's documentation has been prepared under my direction and personally reviewed by me in its entirety. I confirm that the note above accurately re flects all work, treatment, procedures, and medical decision making performed by me.
[2018-12-03] MEDS ORDERED: GLUCOSE 10 TABS/TUBE PO PRN (18:57)
[2018-12-03] MEDS ORDERED: DEXTROSE 50% 50 ML SYRINGE IV PRN (18:57)
[2018-12-03] MEDS ORDERED: CARBOHYDRATES FOR HYPOGLYCEMIA PO PRN (18:57)
[2018-12-03] MEDS ORDERED: GLUCOSE 40% GEL 15 GM TUBE PO PRN (18:57)
[2018-12-03] MEDS ORDERED: GLUCAGON FOR INJ 1 MG VIAL SQ PRN (18:57)
[2018-12-03] MEDS ORDERED: MAGNESIUM SULFATE 1GM / D5W BAG IV ONE (19:40)
[2018-12-03 19:43] LABS: INR 1.1 (0.9-1.1); Partial Thromboplastin Ratio 1.3; Prothrombin Time 10.9 Seconds (9.0-12.0)
[2018-12-03] MEDS ORDERED: LORazepam 1 MG TAB PO PRN (20:24)
[2018-12-03] MEDS: MAGNESIUM SULFATE / D5W 1 GM/100 ML BAG IV SCH ×2 (20:43→22:45)
[2018-12-03] MEDS: NSS + 20MEQ KCL 20 MEQ/1,000 ML BAG IV SCH (20:45)
[2018-12-03] MEDS: INSULIN ASPART 100 UNITS/ML 3 ML PEN SC SCH (21:09)
[2018-12-03] MEDS: Heparin Adult STANDARD Wt-Based Dextrose 5% 25,000 units/500 mL IV SCH (21:14)
[2018-12-03] MEDS: METOPROLOL TARTRATE 1 MG/ML VIAL IV SCH (21:15)
[2018-12-03] MEDS: DOCUSATE SODIUM 100 MG CAP PO SCH (21:16)
[2018-12-03] MEDS: PRAMIPEXOLE DIHYDROCHLO 0.5 MG TAB PO SCH (21:17)
[2018-12-03 22:35] LABS: Appearance Urine Cloudy (Clear); Bacteria Urine Automated 1+ (Negative); Bilirubin Urine Negative (Negative); Color Urine Dark Yellow; Glucose Urine UA Negative (Negative); Ketones Urine Trace (Negative); Leukocyte Esterase Urine 2+ (Negative); Nitrite Urine Negative (Negative); Protein Urine 1+ (Negative); Specific Gravity Urine 1.021 (1.000-1.030); Urobilinogen Urine Negative (Negative); WBC Urine Automated >30 /hpf (0-5)
[2018-12-04] MEDS: METOPROLOL TARTRATE 1 MG/ML VIAL IV SCH ×5 (01:25→23:33)
[2018-12-04 03:47] LABS: Hematocrit (blood only) 36.5 % (42-52); Hemoglobin 12.4 g/dL (14.0-18.0); Immature Granulocytes # (auto) 0.01 K/uL (0.00-0.02); Immature Granulocytes % (auto) 0.3 %; Lymphocytes # (auto) 0.75 K/uL (1.2-3.4); Lymphocytes % (auto) 24.8 %; Mean Corpuscular Volume 80.9 fL (80-100); Mean Platelet Volume 9.5 fL (7.4-10.4); Monocytes # (auto) 0.09 K/uL (0.11-0.59); Neutrophils # (auto) 2.18 K/uL (1.4-6.5); Neutrophils % (auto) 71.9 %; Platelet Count 114 K/uL (130-400); RDW Coefficient of Variation 14.7 % (11.5-14.5); RDW Standard Deviation 43.8 fL (36.4-46.3); Red Blood Count 4.51 M/uL (4.7-6.1); White Blood Count 3.03 K/uL (4.8-10.8)
[2018-12-04 04:05] LABS: Albumin Level 2.3 gm/dl (3.4-5.0); BUN Creatinine Ratio 12.8 (10-20); Bilirubin Direct 0.2 mg/dl (0-0.2); Calcium 7.7 mg/dl (8.5-10.1); Creatinine Clr Calc Pharmacy 31.5 ml/min; Est GFR (African American) 24.1; Est GFR (Non-African American) 20.8; Magnesium 2.2 mg/dl (1.8-2.4); Potassium 4.3 mmol/L (3.5-5.1)
[2018-12-04 04:08] LABS: Partial Thromboplastin Ratio 3.2
[2018-12-04 04:10] LABS: Bilirubin,Total 0.5 mg/dl (0.2-1); Total Protein 5.6 gm/dl (6.4-8.2); Troponin I 0.043 ng/ml (0-0.045)
[2018-12-04 04:11] LABS: Partial Thromboplastin Time 87.7 Seconds (21.0-31.0)
[2018-12-04] MEDS: NSS + 20MEQ KCL 20 MEQ/1,000 ML BAG IV SCH ×2 (04:27→12:00)
[2018-12-04 04:52] LABS: Phosphorus 4.6 mg/dl (2.5-4.9)
[2018-12-04] MEDS: HYDROCORTISONE 10 MG TAB PO SCH ×3 (06:30→15:28)
[2018-12-04] MEDS: INSULIN ASPART 100 UNITS/ML 3 ML PEN SC SCH ×4 (08:30→20:46)
[2018-12-04] MEDS: ACETAMINOPHEN 325 MG TAB PO PRN (08:37)
[2018-12-04] MEDS: CHOLECALCIFEROL 1,000 UNITS TAB PO SCH (08:38)
[2018-12-04] MEDS: AMLODIPINE BESYLATE 5 MG TAB PO SCH (08:38)
[2018-12-04] MEDS: ASPIRIN 81 MG ECTAB PO SCH (08:38)
[2018-12-04] MEDS: DOCUSATE SODIUM 100 MG CAP PO SCH ×2 (08:38→20:43)
[2018-12-04 10:53] LABS: Partial Thromboplastin Time 82.6 Seconds (21.0-31.0)
[2018-12-04] MEDS ORDERED: VANCOMYCIN HCL 1,000 MG/270 ML BAG IV STA (11:17)
[2018-12-04] MEDS ORDERED: PIPERACILL/TAZOBAC CONSULT ACTIVE PRN (11:17)
[2018-12-04] MEDS ORDERED: VANCOMYCIN CONSULT ACTIVE PRN (11:17)
[2018-12-04] MEDS: AMIODARONE 200 MG TAB PO SCH ×3 (12:01→23:33)
[2018-12-04] MEDS ORDERED: VANCOMYCIN HCL 2,500 MG in SODIUM CHLORIDE 0.9% 500 ML IV STA (12:05)
[2018-12-04] MEDS: Heparin Adult STANDARD Wt-Based Dextrose 5% 25,000 units/500 mL IV SCH (12:06)
[2018-12-04] MEDS ORDERED: PIPERACILLIN/TAZOBACTAM 4.5 GM in DEXTROSE 5% 100 ML IV STA (12:07)
--- NOTE | 2018-12-04 13:48 | Hospitalist Progress Note ---
Date of Service December 04, 2018 Assessment & Plan (1) Wide-complex tachycardia: History of atrial fibrillation with RVR as an outpatient since September of this year EKG in the ER did show atrial fibrillation with RVR rate of 140 with questionable VT Patient remains asymptomatic without any chest pain and/or palpitation He was started with intravenous amiodarone and heparin We will trend cardiac enzymes Echo has been done which showed EF of 40% and that is a decrease from 50% as in September of this year Cardiology consulted-appreciate input and recommendation Reverted to sinus rhythm since last night Amiodarone has been changed to oral Continue heparin and will need long-term anticoagulation (2) Metastatic malignant melanoma: Diagnosed to have melanoma in 2013 Was in observation initially but 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 Did not tolerate initial chemo at the time and noted to have right abdomen metastasis He is a status post appendectomy and on replacement dose of hydrocortisone Currently he has been taking Tafinlar 150 mg twice daily and Mekinist 2 mg daily Discussed with oncologist and will hold this medicine for now (3) HECTOR (acute kidney injury): Noted to have acute kidney injury since September of this year Creatinine has been worse since the last exam He looks dry with increasing BUN We will give intravenous fluid and monitor PRP Replace electrolytes as needed Kidney function has not been improved the Continue with IV fluid and electrolyte replacement as needed (4) Hypertension: Noted to have hypertension in the emergency room Has been on amlodipine We will give intravenous Lopressor as needed to control blood pressure Hypertension may be secondary to chemotherapeutic medications Blood pressure seems to be controlled (5) Sleep apnea: Uses CPAP at home (6) Adrenal insufficiency: Received stress dose of hydrocortisone in the ER We will continue with his usual dose of hydrocortisone (7) Acute hyponatremia: Sodium level was noted to be 130 Has been getting intravenous fluid We will recheck in a.m. (8) Cardiomyopathy: His EF has been reduced since September from 54% to 40% as of today May be secondary to chemotherapeutic agent We are holding chemotherapeutic medicines now (9) Febrile neutropenia: Possible Febrile Illness No fever but chills Patient is immunosuppressed Chest x-ray and UA unremarkable Blood and urine cultures have been taken Increased temperature this morning to more than 38 C We will start intravenous Vanco and Zosyn empirically for now Subjective 12/04 Patient was seen and examined in the telemetry unit He has been feeling a little bit better since admission He is back in sinus rhythm with intravenous amiodarone Denies any symptoms except mild shortness of breath at rest He was noted to have a fever of more than 38 C this morning with chills Review of Systems Respiratory: + dyspnea on exertion Cardiovascular: + dyspnea and + lightheadedness Gastrointestinal: + nausea Neurologic: + generalized weakness Psychiatric: as per Subjective / HPI Physical Exam Physical Exam: Minimal distress at rest secondary to shortness of breath Constitutional: well developed, + acute distress (Minimal shortness of breath at rest but the patient denies), + ill appearing and + obese Eyes: PERRL, conjunctivae normal, anicteric sclerae ENMT: external ear and nose normal, oropharynx normal Neck: trachea midline, no thyromegaly Respiratory: + respiratory distress and + cough Auscultation: + diminished lung sounds; no crackles and no wheezes Cardiovascular: Rate/Rhythm: regular rate and regular rhythm Heart Sounds: no murmur Gastrointestinal (Abdomen): normal bowel sounds, soft, nontender, no hepatosplenomegaly Inspection/Auscultation: + abdomen distended Percussion/Palpation: abdomen soft; abdomen nontender Neurologic: patellar DTR's 2+ bilat, sensation intact Psychiatric: A+Ox3, euthymic affect Lymphatic: no cervical or axillary lymphadenopathy Results & Data Vital Signs (Past 12 Hours) Vital Signs Temp Pulse Pulse Resp BP BP Pulse Ox 12/04/18 12:01 76 108/70 12/04/18 11:25 36.9 C 72 17 108/70 96 12/04/18 07:51 38.2 C H 85 20 130/82 98 12/04/18 06:30 86 123/79 12/04/18 04:29 36.5 C 75 14 123/79 98 Laboratory Results Short CBC 12/03/18 12/04/18 Range/Units 15:20 03:29 WBC 4.22 L 3.03 L (4.8-10.8) K/uL Hgb 14.5 12.4 L (14.0-18.0) g/dL Hct 43.4 36.5 L (42-52) % Plt Count 143 114 L (130-400) K/uL BMP 12/03/18 12/04/18 15:20 03:29 Sodium 130 L 130 L Potassium 4.0 4.3 Chloride 99 101 Carbon Dioxide 20 L 19 L BUN 34 H 37 H Creatinine 2.87 H 2.90 H Glucose 96 131 H Calcium 8.9 7.7 L Cardiac Enzymes 12/03/18 12/03/18 12/04/18 Range/Units 15:20 21:11 03:29 Troponin I 0.062 H* 0.073 H* 0.043 (0-0.045) ng/ml Liver Function 12/03/18 12/04/18 Range/Units 15:20 03:29 Total Bilirubin 0.8 0.5 (0.2-1) mg/dl Direct Bilirubin 0.2 (0-0.2) mg/dl AST 117 H 117 H (15-37) U/L ALT 81 H 79 H (12-78) U/L Alkaline Phosphatase 103 84 (45-117) U/L Albumin 2.6 L 2.3 L (3.4-5.0) gm/dl Urine 12/03/18 Range/Units 22:15 Urine Color Dark Yellow Urine Appearance Cloudy A (Clear) Urine pH 5.0 (4.5-7.5) Ur Specific [place] 1.021 (1.000-1.030) Urine Protein 1+ H (Negative) Urine Glucose (UA) Negative (Negative) Medications Administered Current Inpatient Medications Acetaminophen (Tylenol) 650 mg PO Q4H PRN PRN Reason: Pain or Fever Stop: 01/02/19 17:53 Last Admin: 12/04/18 08:37 Dose: 650 mg Documented by: Amiodarone HCl (Cordarone) 200 mg PO Q6 [facility] Stop: 01/03/19 11:59 Last Admin: 12/04/18 12:01 Dose: 200 mg Documented by: Amlodipine Besylate ([facility]vasc) [facility] [place] Stop: 01/03/19 08:59 Last Admin: 12/04/18 08:38 Dose: 5 mg Documented by: Aspirin (Ecotrin Ectab) 81 mg PO QAM [facility] Stop: 01/03/19 08:59 Last Admin: 12/04/18 08:38 Dose: 81 mg Documented by: Dextrose (Dextrose 50%) 25 - 50 ml IV UD PRN; Protocol PRN Reason: Hypoglycemia Protocol Stop: 01/02/19 18:56 Docusate Sodium (Colace) 100 mg PO BID [facility] Stop: 01/02/19 20:59 Last Admin: 12/04/18 08:38 Dose: Not Given Documented by: Glucagon (Glucagen) 1 mg SQ UD PRN; Protocol PRN Reason: Hypoglycemia Protocol Stop: 01/02/19 18:56 Glucose (Dex4 Glucose) 4 - 8 tabs PO UD PRN; Protocol PRN Reason: Hypoglycemia Protocol Stop: 01/02/19 18:56 Glucose (Glucose 40%) 15 - 30 gm PO UD PRN; Protocol PRN Reason: Hypoglycemia Protocol Stop: 01/02/19 18:56 Hydrocortisone (Cortef) 20 mg PO DAILY@0600,1200,1500 RENZO Stop: 01/03/19 05:59 Last Admin: 12/04/18 12:01 Dose: 20 mg Documented by: Potassium Chloride/Sodium Chloride (Normal Saline W/20 Meq Kcl) 20 meq in 1,000 mls @ 150 mls/hr IV .Q6H40M RENZO Stop: 12/04/18 15:59 Last Admin: 12/04/18 12:00 Dose: 150 mls/hr Documented by: Heparin Sodium/Dextrose (Heparin Sodium/Dextrose) 25,000 units in 500 mls @ 0 mls/hr IV .Q0M RENZO; Protocol Stop: 01/02/19 20:59 Last Admin: 12/04/18 12:06 Dose: 1,350 units/hr, 27 mls/hr Documented by: Vancomycin HCl 2,500 mg/ (Sodium Chloride) 550 mls @ 200 mls/hr IV NOW STA Stop: 12/04/18 14:49 Last Admin: 12/04/18 12:47 Dose: 200 mls/hr Documented by: Insulin Aspart (Novolog Flexpen) 0 units SC ACHS RENZO Stop: 01/02/19 20:59 Last Admin: 12/04/18 12:01 Dose: Not Given Documented by: Lorazepam (Ativan) 1 mg PO BID PRN PRN Reason: anxiety Stop: 01/02/19 20:23 Metoprolol Tartrate (Lopressor) 5 mg IV Q6 RENZO Stop: 01/02/19 19:59 Last Admin: 12/04/18 12:01 Dose: 5 mg Documented by: Miscellaneous (Carbohydrates For Hypoglycemia) 15 - 30 gm PO UD PRN PRN Reason: Hypoglycemia Treatment Stop: 01/02/19 18:56 Miscellaneous Information (Consult) 1 ea N/A UD PRN PRN Reason: Consult Stop: 01/03/19 11:16 Miscellaneous Information (Consult) 1 ea N/A UD PRN PRN Reason: Consult Stop: 01/03/19 11:16 Pramipexole Dihydrochloride (Mirapex) 0.5 mg PO DAILY@1500,2100 [facility] Stop: 01/02/19 20:59 Last Admin: 12/03/18 21:17 Dose: 0.5 mg Documented by: Vitamin D (Vitamin D3) 1,000 units PO QAM [facility] Stop: 01/03/19 08:59 Last Admin: 12/04/18 08:38 Dose: 1,000 units Documented by:
--- NOTE | 2018-12-04 14:18 | Pharmacy Report ---
Pharmacy Abx Initial Consult - Date of Service December 04, 2018 - Pharmacy Dosing Scope Date of Consult: 12/04/18 Consultation requested by: Dr. Bales Pharmacy is consulted to initiate Vancomycin and Zosyn IV dosing therapy, order appropriate labs and adjust drug dose/frequency. - Subjective The patient is a 73 year old M admitted on 12/03/18 18:10. - Objective Height: 5 ft 10 in Weight: 128.6 kg Vital Signs (Past 12hrs): Vital Signs Temp Pulse Pulse Resp BP BP Pulse Ox 12/04/18 12:01 76 108/70 12/04/18 11:25 36.9 C 72 17 108/70 96 12/04/18 07:51 38.2 C H 85 20 130/82 98 12/04/18 06:30 86 123/79 12/04/18 04:29 36.5 C 75 14 123/79 98 Lab Results (24hrs): Laboratory Tests (24 Hours) 12/04/18 12/04/18 12/03/18 03:29 03:29 15:20 WBC 3.03 L Neut # (Auto) 2.18 Creatinine 2.90 H 2.87 H Est Cr Clr Drug Dosing 31.5 32.4 12/03/18 15:20 WBC 4.22 L Neut # (Auto) 2.65 Creatinine Est Cr Clr Drug Dosing Micro Results: 12/03/18 14:56 Aerobic Blood Culture - Pending Blood Anaerobic Blood Culture - Pending 12/03/18 15:20 Aerobic Blood Culture - Pending Blood Anaerobic Blood Culture - Pending - Risk Factors for Resistance * Immunocompromised (chronic steroid therapy, chemotherapy, immunomodulators) - Assessment & Plan Assessment 73 year old M on empiric IV Vancomycin and Zosyn for febrile neutropenia. Urine culture grew gram+ cocci Plan Vancomycin IV * Estimated PK Parameters: [place] 0.03 hr-1, t1/2 23.1 hr * Loading dose: 2500 mg (~20 mg/kg) * Maintenance dose: 1500 mg IV (~12 mg/kg) every 24 hours * Goal trough level for febrile neutropenia : 15 to 20 mcg/mL * Given empiric indication for Vancomycin, no labs ordered at this time. If therapy is continued >48 hours, will check trough then. Piperacillin/tazobactam * 4.5 g bolus administered over 30 minutes, then 4.5 g IV extended infusion every 8 hours for CrCl greater than 20 mL/min * Aggressive dosing selected due to critically ill status/BMI 35 or more/history of cystic fibrosis. Pharmacy will continue to follow and will adjust dose/frequency as necessary. Thank you.
--- NOTE | 2018-12-04 15:09 | Cardiology Progress Note ---
Date of Service December 04, 2018 Assessment & Plan (1) Paroxysmal atrial fibrillation with rapid ventricular response: Patient spontaneously converted last night to sinus rhythm with IV amiodarone. EKG postconversion demonstrates no acute ischemic changes no QT prolongation with normal tracing In review of records he had paroxysmal atrial fibrillation post adrenalectomy in September 2018 Plan discontinue IV amiodarone, begin oral amiodarone load Daily EKG Continue IV anticoagulation initially short-term will need to discuss long-term indications and treatment (2) Wide-complex tachycardia: Atrial fibrillation with rapid response with rate related left bundle branch block/aberrant conduction (3) Cardiomyopathy: Mild LV systolic dysfunction noted on resting 2D transthoracic echocardiogram. Question secondary to medications versus due to elevated rate during initial echocardiogram, exclude melanoma involvement We will anticipate repeating echocardiogram this admission (4) HECTOR (acute kidney injury): Recommend IV hydration. (5) Fever: (6) Elevated troponin: (7) Metastatic malignant melanoma: (8) Adrenal insufficiency: Subjective Patient seen and examined chart medications telemetry reviewed. Patient feels improved but somewhat disgruntled this morning. No chest pains or shortness of breath. No dizziness or lightheadedness Review of Systems Review of Systems: As per HPI Physical Exam Constitutional: WD/WN, vitals as above ENMT: external ear and nose normal, oropharynx normal Neck: trachea midline, no thyromegaly Respiratory: Diminished breath sounds with minimal crackles at the bases Cardiovascular: Rate/Rhythm: regular rate and regular rhythm Heart Sounds: normal S1 and normal S2 Vessels: no JVD Extremities: no edema Gastrointestinal (Abdomen): normal bowel sounds, soft, nontender, no hepatosplenomegaly Results & Data Vital Signs (Past 12 Hours) Vital Signs Temp Pulse Pulse Resp BP BP Pulse Ox 12/04/18 15:00 36.2 C L 71 19 110/73 97 12/04/18 12:01 76 108/70 12/04/18 11:25 36.9 C 72 17 108/70 96 12/04/18 07:51 38.2 C H 85 20 130/82 98 12/04/18 06:30 86 123/79 12/04/18 04:29 36.5 C 75 14 123/79 98 Laboratory Results Laboratory Results - last 24 hr 12/03/18 12/03/18 12/03/18 15:20 15:20 15:24 WBC 4.22 L RBC 5.25 Hgb 14.5 Hct 43.4 MCV 82.7 MCH 27.6 MCHC 33.4 RDW Std Deviation 45.2 RDW Coeff of Scottie 15.0 H Plt Count 143 MPV 10.6 H Immature Gran % (Auto) 0.5 Neut % (Auto) 62.7 Lymph % (Auto) 29.9 [place] % (Auto) 6.2 Eos % (Auto) 0.2 Baso % (Auto) 0.5 Immature Gran # (Auto) 0.02 Neut # (Auto) 2.65 Lymph # (Auto) 1.26 [place] # (Auto) 0.26 Eos # (Auto) 0.01 Baso # (Auto) 0.02 PT 10.9 INR 1.1 APTT 35.0 H PTT Ratio 1.3 Sodium 130 L Potassium 4.0 Chloride 99 Carbon Dioxide 20 L Anion Gap 11.0 BUN 34 H Creatinine 2.87 H Est Cr Clr Drug Dosing 32.4 Est GFR ( Amer) 24.4 Est GFR (Non-Af Amer) 21.1 BUN/Creatinine Ratio 12.0 Glucose 96 POC Glucose Calcium 8.9 Phosphorus 2.9 Magnesium 1.4 L Total Bilirubin 0.8 Direct Bilirubin AST 117 H ALT 81 H Alkaline Phosphatase 103 Troponin I 0.062 H* Total Protein 6.2 L Albumin 2.6 L Globulin 3.6 Albumin/Globulin Ratio 0.7 L Urine Color Urine Appearance Urine pH Ur Specific [place] Urine Protein Urine Glucose (UA) Urine Ketones Urine Blood Urine Nitrite Urine Bilirubin Urine Urobilinogen Ur Leukocyte Esterase Urine WBC (Auto) Urine RBC (Auto) U Hyaline Cast (Auto) U Epithel Cells (Auto) Urine Bacteria (Auto) Granular Casts Urine Yeast Hepatitis C Ab Screen 12/03/18 12/03/18 12/03/18 20:47 21:11 22:15 WBC RBC Hgb Hct MCV MCH MCHC RDW Std Deviation RDW Coeff of Scottie Plt Count MPV Immature Gran % (Auto) Neut % (Auto) Lymph % (Auto) [place] % (Auto) Eos % (Auto) Baso % (Auto) Immature Gran # (Auto) Neut # (Auto) Lymph # (Auto) [place] # (Auto) Eos # (Auto) Baso # (Auto) PT INR APTT PTT Ratio Sodium Potassium Chloride Carbon Dioxide Anion Gap BUN Creatinine Est Cr Clr Drug Dosing Est GFR ( Amer) Est GFR (Non-Af Amer) BUN/Creatinine Ratio Glucose POC Glucose 138 H Calcium Phosphorus Magnesium Total Bilirubin Direct Bilirubin AST ALT Alkaline Phosphatase Troponin I 0.073 H* Total Protein Albumin Globulin Albumin/Globulin Ratio Urine Color Dark Yellow Urine Appearance Cloudy A Urine pH 5.0 Ur Specific [place] 1.021 Urine Protein 1+ H Urine Glucose (UA) Negative Urine Ketones Trace H Urine Blood 2+ H Urine Nitrite Negative Urine Bilirubin Negative Urine Urobilinogen Negative Ur Leukocyte Esterase 2+ H Urine WBC (Auto) >30 H Urine RBC (Auto) 0-4 U Hyaline Cast (Auto) 5-10 H U Epithel Cells (Auto) 5-10 H Urine Bacteria (Auto) 1+ H Granular Casts 5-10 H Urine Yeast Not Reportable Hepatitis C Ab Screen 12/04/18 12/04/18 12/04/18 03:29 03:29 03:29 WBC RBC Hgb Hct MCV MCH MCHC RDW Std Deviation RDW Coeff of Scottie Plt Count MPV Immature Gran % (Auto) Neut % (Auto) Lymph % (Auto) [place] % (Auto) Eos % (Auto) Baso % (Auto) Immature Gran # (Auto) Neut # (Auto) Lymph # (Auto) [place] # (Auto) Eos # (Auto) Baso # (Auto) PT INR APTT 87.7 H* PTT Ratio 3.2 Sodium 130 L Potassium 4.3 Chloride 101 Carbon Dioxide 19 L Anion Gap 10.0 BUN 37 H Creatinine 2.90 H Est Cr Clr Drug Dosing 31.5 Est GFR ( Amer) 24.1 Est GFR (Non-Af Amer) 20.8 BUN/Creatinine Ratio 12.8 Glucose 131 H POC Glucose Calcium 7.7 L Phosphorus 4.6 D Magnesium 2.2 Total Bilirubin 0.5 Direct Bilirubin 0.2 AST 117 H ALT 79 H Alkaline Phosphatase 84 Troponin I 0.043 Total Protein 5.6 L Albumin 2.3 L Globulin Albumin/Globulin Ratio Urine Color Urine Appearance Urine pH Ur Specific [place] Urine Protein Urine Glucose (UA) Urine Ketones Urine Blood Urine Nitrite Urine Bilirubin Urine Urobilinogen Ur Leukocyte Esterase Urine WBC (Auto) Urine RBC (Auto) U Hyaline Cast (Auto) U Epithel Cells (Auto) Urine Bacteria (Auto) Granular Casts Urine Yeast Hepatitis C Ab Screen Neg 12/04/18 12/04/18 12/04/18 03:29 07:27 10:14 WBC 3.03 L RBC 4.51 L Hgb 12.4 L Hct 36.5 L MCV 80.9 MCH 27.5 MCHC 34.0 RDW Std Deviation 43.8 RDW Coeff of Scottie 14.7 H Plt Count 114 L MPV 9.5 Immature Gran % (Auto) 0.3 Neut % (Auto) 71.9 Lymph % (Auto) 24.8 [place] % (Auto) 3.0 Eos % (Auto) 0.0 Baso % (Auto) 0.0 Immature Gran # (Auto) 0.01 Neut # (Auto) 2.18 Lymph # (Auto) 0.75 L [place] # (Auto) 0.09 L Eos # (Auto) 0.00 Baso # (Auto) 0.00 PT INR APTT 82.6 H* PTT Ratio 3.0 Sodium Potassium Chloride Carbon Dioxide Anion Gap BUN Creatinine Est Cr Clr Drug Dosing Est GFR ( Amer) Est GFR (Non-Af Amer) BUN/Creatinine Ratio Glucose POC Glucose 124 H Calcium Phosphorus Magnesium Total Bilirubin Direct Bilirubin AST ALT Alkaline Phosphatase Troponin I Total Protein Albumin Globulin Albumin/Globulin Ratio Urine Color Urine Appearance Urine pH Ur Specific [place] Urine Protein Urine Glucose (UA) Urine Ketones Urine Blood Urine Nitrite Urine Bilirubin Urine Urobilinogen Ur Leukocyte Esterase Urine WBC (Auto) Urine RBC (Auto) U Hyaline Cast (Auto) U Epithel Cells (Auto) Urine Bacteria (Auto) Granular Casts Urine Yeast Hepatitis C Ab Screen 12/04/18 11:22 WBC RBC Hgb Hct MCV MCH MCHC RDW Std Deviation RDW Coeff of Scottie Plt Count MPV Immature Gran % (Auto) Neut % (Auto) Lymph % (Auto) [place] % (Auto) Eos % (Auto) Baso % (Auto) Immature Gran # (Auto) Neut # (Auto) Lymph # (Auto) [place] # (Auto) Eos # (Auto) Baso # (Auto) PT INR APTT PTT Ratio Sodium Potassium Chloride Carbon Dioxide Anion Gap BUN Creatinine Est Cr Clr Drug Dosing Est GFR ( Amer) Est GFR (Non-Af Amer) BUN/Creatinine Ratio Glucose POC Glucose 135 H Calcium Phosphorus Magnesium Total Bilirubin Direct Bilirubin AST ALT Alkaline Phosphatase Troponin I Total Protein Albumin Globulin Albumin/Globulin Ratio Urine Color Urine Appearance Urine pH Ur Specific [place] Urine Protein Urine Glucose (UA) Urine Ketones Urine Blood Urine Nitrite Urine Bilirubin Urine Urobilinogen Ur Leukocyte Esterase Urine WBC (Auto) Urine RBC (Auto) U Hyaline Cast (Auto) U Epithel Cells (Auto) Urine Bacteria (Auto) Granular Casts Urine Yeast Hepatitis C Ab Screen ECG Additional Comments: 04-DEC-2018 07:32:02 [facility] ROUTINE RETRIEVAL Normal sinus rhythm Normal ECG When compared with ECG of 03-DEC-2018 15:03, wide-complex tachycardia/atrial fibrillation with aberrancy has resolved (1) Fever Fever type: unspecified Qualified Code(s): R50.9 - Fever, unspecified
[2018-12-04] MEDS: PRAMIPEXOLE DIHYDROCHLO 0.5 MG TAB PO SCH ×2 (15:29→20:47)
[2018-12-04] MEDS: PIPERACILLIN/TAZOBACTAM 4.5 GM in DEXTROSE 5% 100 ML IV SCH (17:10)
[2018-12-04 18:51] LABS: Partial Thromboplastin Ratio 3.6
[2018-12-04 18:59] LABS: Partial Thromboplastin Time 98.9 Seconds (21.0-31.0)
[2018-12-05 01:41] LABS: Partial Thromboplastin Ratio 2.2
[2018-12-05 01:55] LABS: Partial Thromboplastin Time 58.9 Seconds (21.0-31.0)
[2018-12-05 01:56] LABS: Creatinine Clr Calc Pharmacy 29.2 ml/min
[2018-12-05] MEDS: PIPERACILLIN/TAZOBACTAM 4.5 GM in DEXTROSE 5% 100 ML IV SCH ×3 (02:35→17:08)
[2018-12-05] MEDS: AMIODARONE 200 MG TAB PO SCH ×4 (06:06→23:30)
[2018-12-05] MEDS: METOPROLOL TARTRATE 1 MG/ML VIAL IV SCH ×4 (06:07→23:31)
[2018-12-05] MEDS: HYDROCORTISONE 10 MG TAB PO SCH ×3 (06:12→15:51)
[2018-12-05] MEDS: Heparin Adult STANDARD Wt-Based Dextrose 5% 25,000 units/500 mL IV SCH ×2 (08:33→16:56)
[2018-12-05] MEDS: INSULIN ASPART 100 UNITS/ML 3 ML PEN SC SCH ×4 (08:34→20:52)
[2018-12-05] MEDS: SODIUM CHLORIDE 0.9% 1000ML 1,000 ML IV SCH ×3 (08:34→23:34)
[2018-12-05] MEDS: DOCUSATE SODIUM 100 MG CAP PO SCH ×2 (08:35→20:51)
[2018-12-05] MEDS: AMLODIPINE BESYLATE 5 MG TAB PO SCH (08:35)
[2018-12-05] MEDS: ACETAMINOPHEN 325 MG TAB PO PRN (08:36)
[2018-12-05] MEDS: CHOLECALCIFEROL 1,000 UNITS TAB PO SCH (08:36)
[2018-12-05] MEDS: ASPIRIN 81 MG ECTAB PO SCH (08:37)
[2018-12-05 08:49] LABS: Basophils # (auto) 0.01 K/uL (0-0.2); Basophils % (auto) 0.3 %; Eosinophils # (auto) 0.03 K/uL (0-0.5); Eosinophils % (auto) 0.9 %; Hematocrit (blood only) 33.6 % (42-52); Hemoglobin 11.5 g/dL (14.0-18.0); Immature Granulocytes # (auto) 0.01 K/uL (0.00-0.02); Immature Granulocytes % (auto) 0.3 %; Lymphocytes # (auto) 0.53 K/uL (1.2-3.4); Lymphocytes % (auto) 16.7 %; Mean Corpuscular Hgb Conc 34.2 g/dL (32-36); Mean Corpuscular Volume 81.4 fL (80-100); Monocytes # (auto) 0.24 K/uL (0.11-0.59); Monocytes % (auto) 7.6 %; Neutrophils # (auto) 2.35 K/uL (1.4-6.5); Neutrophils % (auto) 74.2 %; Platelet Count 103 K/uL (130-400); RDW Standard Deviation 44.8 fL (36.4-46.3); Red Blood Count 4.13 M/uL (4.7-6.1); White Blood Count 3.17 K/uL (4.8-10.8)
[2018-12-05 09:11] LABS: BUN Creatinine Ratio 13.3 (10-20); Calcium 8.2 mg/dl (8.5-10.1); Creatinine Clr Calc Pharmacy 31.1 ml/min; Est GFR (African American) 23.5; Est GFR (Non-African American) 20.3; Magnesium 2.2 mg/dl (1.8-2.4); Potassium 4.3 mmol/L (3.5-5.1)
[2018-12-05] MEDS: VANCOMYCIN HCL 1,500 MG in SODIUM CHLORIDE 0.9% 500 ML IV SCH (11:34)
--- NOTE | 2018-12-05 11:49 | Cardiology Progress Note ---
Date of Service December 05, 2018 Assessment & Plan (1) Paroxysmal atrial fibrillation with rapid ventricular response: Patient spontaneously converted to sinus rhythm with IV amiodarone. In review of records he had paroxysmal atrial fibrillation post adrenalectomy in September 2018 Plan oral amiodarone load Daily EKG Continue IV anticoagulation initially short-term will need to discuss long-term indications and treatment (2) Wide-complex tachycardia: Atrial fibrillation with rapid response with rate related left bundle branch block/aberrant conduction (3) Cardiomyopathy: Mild LV systolic dysfunction noted on resting 2D transthoracic echocardiogram. Question secondary to medications versus due to elevated rate during initial echocardiogram, exclude melanoma involvement We will anticipate repeating echocardiogram in a.m. (4) HECTOR (acute kidney injury): (5) Fever: (6) Elevated troponin: (7) Metastatic malignant melanoma: Melanoma historically may involve cardiac structures given atrial fibrillation will reassess echocardiogram. Restart chemotherapy as per oncology and pending results of repeat echocardiac (8) Adrenal insufficiency: Physical Exam Constitutional: WD/WN, vitals as above ENMT: external ear and nose normal, oropharynx normal Neck: trachea midline, no thyromegaly Cardiovascular: Rate/Rhythm: regular rate and regular rhythm Heart Sounds: normal S1 and normal S2 Vessels: no JVD Extremities: no edema Gastrointestinal (Abdomen): normal bowel sounds, soft, nontender, no hepatosplenomegaly Results & Data Vital Signs (Past 12 Hours) Vital Signs Temp Pulse Pulse Resp BP BP Pulse Ox 12/05/18 10:43 36.5 C 74 19 118/68 95 12/05/18 06:53 36.6 C 72 19 114/74 97 12/05/18 06:07 56 L 122/76 12/05/18 02:34 36.6 C 62 21 122/76 92 Laboratory Results Laboratory Results - last 24 hr 12/04/18 12/04/18 12/04/18 16:11 17:51 20:16 WBC RBC Hgb Hct MCV MCH MCHC RDW Std Deviation RDW Coeff of Scottie Plt Count MPV Immature Gran % (Auto) Neut % (Auto) Lymph % (Auto) [place] % (Auto) Eos % (Auto) Baso % (Auto) Immature Gran # (Auto) Neut # (Auto) Lymph # (Auto) [place] # (Auto) Eos # (Auto) Baso # (Auto) APTT 98.9 H* PTT Ratio 3.6 Sodium Potassium Chloride Carbon Dioxide Anion Gap BUN Creatinine Est Cr Clr Drug Dosing Est GFR ( Amer) Est GFR (Non-Af Amer) BUN/Creatinine Ratio Glucose POC Glucose 165 H 155 H Calcium Magnesium 12/05/18 12/05/18 12/05/18 01:03 01:03 07:24 WBC RBC Hgb Hct MCV MCH MCHC RDW Std Deviation RDW Coeff of Scottie Plt Count MPV Immature Gran % (Auto) Neut % (Auto) Lymph % (Auto) [place] % (Auto) Eos % (Auto) Baso % (Auto) Immature Gran # (Auto) Neut # (Auto) Lymph # (Auto) [place] # (Auto) Eos # (Auto) Baso # (Auto) APTT 58.9 H* PTT Ratio 2.2 Sodium Potassium Chloride Carbon Dioxide Anion Gap BUN Creatinine 3.13 H Est Cr Clr Drug Dosing 29.2 Est GFR ( Amer) 22.0 Est GFR (Non-Af Amer) 19.0 BUN/Creatinine Ratio Glucose POC Glucose 116 H Calcium Magnesium 12/05/18 12/05/18 12/05/18 08:41 08:41 11:42 WBC 3.17 L RBC 4.13 L Hgb 11.5 L Hct 33.6 L MCV 81.4 MCH 27.8 MCHC 34.2 RDW Std Deviation 44.8 RDW Coeff of Scottie 15.0 H Plt Count 103 L MPV 10.0 Immature Gran % (Auto) 0.3 Neut % (Auto) 74.2 Lymph % (Auto) 16.7 [place] % (Auto) 7.6 Eos % (Auto) 0.9 Baso % (Auto) 0.3 Immature Gran # (Auto) 0.01 Neut # (Auto) 2.35 Lymph # (Auto) 0.53 L [place] # (Auto) 0.24 Eos # (Auto) 0.03 Baso # (Auto) 0.01 APTT PTT Ratio Sodium 133 L Potassium 4.3 Chloride 104 Carbon Dioxide 20 L Anion Gap 9.0 BUN 40 H Creatinine 2.96 H Est Cr Clr Drug Dosing 31.1 Est GFR ( Amer) 23.5 Est GFR (Non-Af Amer) 20.3 BUN/Creatinine Ratio 13.3 Glucose 138 H POC Glucose 140 H Calcium 8.2 L Magnesium 2.2 Diagnostic Findings 05-DEC-2018 06:42:48 [facility] ROUTINE RETRIEVAL Normal sinus rhythm Normal ECG When compared with ECG of 04-DEC-2018 07:32, No significant change was found (1) Fever Fever type: unspecified Qualified Code(s): R50.9 - Fever, unspecified
--- NOTE | 2018-12-05 12:55 | Hospitalist Progress Note ---
Date of Service December 05, 2018 Assessment & Plan (1) Wide-complex tachycardia: History of atrial fibrillation with RVR as an outpatient since September of this year EKG in the ER did show atrial fibrillation with RVR rate of 140 with questionable VT Patient remains asymptomatic without any chest pain and/or palpitation He was started with intravenous amiodarone and heparin We will trend cardiac enzymes Echo has been done which showed EF of 40% and that is a decrease from 50% as in September of this year Cardiology consulted-appreciate input and recommendation Reverted to sinus rhythm since last night Amiodarone has been changed to oral Continue heparin and will need long-term anticoagulation Remains in sinus rhythm with symptomatic improvement (2) Metastatic malignant melanoma: Diagnosed to have melanoma in 2013 Was in observation initially but 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 Did not tolerate initial chemo at the time and noted to have right abdomen metastasis He is a status post appendectomy and on replacement dose of hydrocortisone Currently he has been taking Tafinlar 150 mg twice daily and Mekinist 2 mg daily Discussed with oncologist and will hold this medicine for now (3) HECTOR (acute kidney injury): Noted to have acute kidney injury since September of this year Creatinine has been worse since the last exam He looks dry with increasing BUN We will give intravenous fluid and monitor PRP Replace electrolytes as needed Continue with IV fluid and electrolyte replacement as needed Renal function has not improved. May need nephrology evaluation if condition does not get any better (4) Hypertension: Noted to have hypertension in the emergency room Has been on amlodipine We will give intravenous Lopressor as needed to control blood pressure Hypertension may be secondary to chemotherapeutic medications Blood pressure seems to be controlled (5) Sleep apnea: Uses CPAP at home (6) Adrenal insufficiency: Received stress dose of hydrocortisone in the ER We will continue with his usual dose of hydrocortisone (7) Acute hyponatremia: Sodium level was noted to be 130 Has been getting intravenous fluid We will recheck in a.m.-sodium level went up to 133 (8) Cardiomyopathy: His EF has been reduced since September from 54% to 40% as of today May be secondary to chemotherapeutic agent We are holding chemotherapeutic medicines now (9) Febrile neutropenia: Possible Febrile Illness No fever but chills Patient is immunosuppressed Chest x-ray and UA unremarkable Blood and urine cultures have been taken Increased temperature this morning to more than 38 C We will start intravenous Vanco and Zosyn empirically for now Urine culture is growing gram-positive cocci-await sensitivity Blood cultures have been negative Subjective 12/04 Patient was seen and examined in the telemetry unit He has been feeling a little bit better since admission He is back in sinus rhythm with intravenous amiodarone Denies any symptoms except mild shortness of breath at rest He was noted to have a fever of more than 38 C this morning with chills 12/05 Patient is seen and examined in telemetry unit He has been feeling a lot better since admission He remains in sinus rhythm on amiodarone Denies any chest pain, shortness of breath, palpitation, abdominal pain nausea and/or vomiting Review of Systems Respiratory: + dyspnea on exertion Cardiovascular: + dyspnea and + lightheadedness Gastrointestinal: + nausea Neurologic: + generalized weakness Psychiatric: as per Subjective / HPI Physical Exam Physical Exam: Lying in bed comfortably Constitutional: well developed, + acute distress (Minimal shortness of breath at rest but the patient denies), + ill appearing and + obese Eyes: PERRL, conjunctivae normal, anicteric sclerae ENMT: external ear and nose normal, oropharynx normal Neck: trachea midline, no thyromegaly Respiratory: + respiratory distress and + cough Auscultation: + diminished lung sounds; no crackles and no wheezes Cardiovascular: Rate/Rhythm: regular rate and regular rhythm Heart Sounds: no murmur Gastrointestinal (Abdomen): normal bowel sounds, soft, nontender, no hepatosplenomegaly Inspection/Auscultation: + abdomen distended Percussion/Palpation: abdomen soft; abdomen nontender Neurologic: patellar DTR's 2+ bilat, sensation intact Psychiatric: A+Ox3, euthymic affect Lymphatic: no cervical or axillary lymphadenopathy Results & Data Vital Signs (Past 12 Hours) Vital Signs Temp Pulse Pulse Resp BP BP Pulse Ox 12/05/18 10:43 36.5 C 74 19 118/68 95 12/05/18 06:53 36.6 C 72 19 114/74 97 12/05/18 06:07 56 L 122/76 12/05/18 02:34 36.6 C 62 21 122/76 92 Laboratory Results Short CBC 12/05/18 Range/Units 08:41 WBC 3.17 L (4.8-10.8) K/uL Hgb 11.5 L (14.0-18.0) g/dL Hct 33.6 L (42-52) % Plt Count 103 L (130-400) K/uL BMP 12/05/18 12/05/18 01:03 08:41 Sodium 133 L Potassium 4.3 Chloride 104 Carbon Dioxide 20 L BUN 40 H Creatinine 3.13 H 2.96 H Glucose 138 H Calcium 8.2 L Medications Administered Current Inpatient Medications Acetaminophen (Tylenol) 650 mg PO Q4H PRN PRN Reason: Pain or Fever Stop: 01/02/19 17:53 Last Admin: 12/05/18 08:36 Dose: 650 mg Documented by: Amiodarone HCl (Cordarone) 200 mg PO Q6 [facility] Stop: 01/03/19 11:59 Last Admin: 12/05/18 11:34 Dose: 200 mg Documented by: Amlodipine Besylate (Norvasc) 5 mg PO QAM [facility] Stop: 01/03/19 08:59 Last Admin: 12/05/18 08:35 Dose: 5 mg Documented by: Aspirin (Ecotrin Ectab) [facility] [place] Stop: 01/03/19 08:59 Last Admin: 12/05/18 08:37 Dose: 81 mg Documented by: Dextrose (Dextrose 50%) 25 - 50 ml IV UD PRN; Protocol PRN Reason: Hypoglycemia Protocol Stop: 01/02/19 18:56 Docusate Sodium (Colace) 100 mg PO BID [facility] Stop: 01/02/19 20:59 Last Admin: 12/05/18 08:35 Dose: 100 mg Documented by: Glucagon (Glucagen) 1 mg SQ UD PRN; Protocol PRN Reason: Hypoglycemia Protocol Stop: 01/02/19 18:56 Glucose (Dex4 Glucose) 4 - 8 tabs PO UD PRN; Protocol PRN Reason: Hypoglycemia Protocol Stop: 01/02/19 18:56 Glucose (Glucose 40%) 15 - 30 gm PO UD PRN; Protocol PRN Reason: Hypoglycemia Protocol Stop: 01/02/19 18:56 Hydrocortisone (Cortef) 20 mg PO DAILY@0600,1200,1500 [facility] Stop: 01/03/19 05:59 Last Admin: 12/05/18 11:35 Dose: 20 mg Documented by: Heparin Sodium/Dextrose (Heparin Sodium/Dextrose) 25,000 units in 500 mls @ 23 mls/hr IV .[id number] [facility]; Protocol Stop: 01/02/19 20:59 Last Admin: 12/05/18 08:33 Dose: 1,150 units/hr, 23 mls/hr Documented by: Piperacillin Sod/Tazobactam (Sod 4.5 gm/ Dextrose) 120 mls @ 30 mls/hr IV Q8H [facility]; Protocol Stop: 12/14/18 17:59 Last Admin: 12/05/18 11:34 Dose: 30 mls/hr Documented by: Vancomycin HCl 1,500 mg/ (Sodium Chloride) 530 mls @ 200 mls/hr IV Q24H [facility] Stop: 12/14/18 11:59 Last Admin: 12/05/18 11:34 Dose: 200 mls/hr Documented by: Sodium Chloride (Nss 1000ml) 1,000 mls @ 125 mls/hr IV .Q8H [facility] Stop: 12/06/18 08:29 Last Infusion: 12/05/18 11:57 Dose: 0 mls/hr Documented by: Insulin Aspart (Novolog Flexpen) 0 units SC ACHS [facility] Stop: 01/02/19 20:59 Last Admin: 12/05/18 11:50 Dose: 3 units Documented by: Lorazepam (Ativan) 1 mg PO BID PRN PRN Reason: anxiety Stop: 01/02/19 20:23 Metoprolol Tartrate (Lopressor) 5 mg IV Q6 [facility] Stop: 01/02/19 19:59 Last Admin: 12/05/18 11:35 Dose: Not Given Documented by: Miscellaneous (Carbohydrates For Hypoglycemia) 15 - 30 gm PO UD PRN PRN Reason: Hypoglycemia Treatment Stop: 01/02/19 18:56 Miscellaneous Information (Consult) 1 ea N/A UD PRN PRN Reason: Consult Stop: 01/03/19 11:16 Miscellaneous Information (Consult) 1 ea N/A UD PRN PRN Reason: Consult Stop: 01/03/19 11:16 Pramipexole Dihydrochloride (Mirapex) 0.5 mg PO DAILY@1500,2100 [facility] Stop: 01/02/19 20:59 Last Admin: 12/04/18 20:47 Dose: 0.5 mg Documented by: Vitamin D (Vitamin D3) 1,000 units PO QAM [facility] Stop: 01/03/19 08:59 Last Admin: 12/05/18 08:36 Dose: 1,000 units Documented by:
[2018-12-05] MEDS: PRAMIPEXOLE DIHYDROCHLO 0.5 MG TAB PO SCH ×2 (15:51→20:52)
[2018-12-06] MEDS: PIPERACILLIN/TAZOBACTAM 4.5 GM in DEXTROSE 5% 100 ML IV SCH ×3 (01:48→18:00)
[2018-12-06] MEDS: Heparin Adult STANDARD Wt-Based Dextrose 5% 25,000 units/500 mL IV SCH (05:26)
[2018-12-06] MEDS: HYDROCORTISONE 10 MG TAB PO SCH ×3 (05:31→15:31)
[2018-12-06] MEDS: AMIODARONE 200 MG TAB PO SCH ×4 (05:31→23:57)
[2018-12-06] MEDS: METOPROLOL TARTRATE 1 MG/ML VIAL IV SCH ×2 (06:19→12:15)
[2018-12-06 07:20] LABS: Hematocrit (blood only) 32.4 % (42-52); Hemoglobin 10.5 g/dL (14.0-18.0); Mean Corpuscular Hgb Conc 32.4 g/dL (32-36); Mean Corpuscular Volume 83.9 fL (80-100); RDW Coefficient of Variation 15.3 % (11.5-14.5); RDW Standard Deviation 47.4 fL (36.4-46.3); Red Blood Count 3.86 M/uL (4.7-6.1); White Blood Count 2.41 K/uL (4.8-10.8)
[2018-12-06 07:35] LABS: Basophils # (auto) 0.01 K/uL (0-0.2); Basophils % (auto) 0.4 %; Eosinophils # (auto) 0.03 K/uL (0-0.5); Eosinophils % (auto) 1.2 %; Immature Granulocytes # (auto) 0.01 K/uL (0.00-0.02); Immature Granulocytes % (auto) 0.4 %; Lymphocytes # (auto) 0.35 K/uL (1.2-3.4); Lymphocytes % (auto) 14.5 %; Mean Platelet Volume 10.5 fL (7.4-10.4); Monocytes # (auto) 0.26 K/uL (0.11-0.59); Monocytes % (auto) 10.8 %; Neutrophils # (auto) 1.75 K/uL (1.4-6.5); Neutrophils % (auto) 72.7 %; Partial Thromboplastin Ratio 1.8; Platelet Count 86 K/uL (130-400)
[2018-12-06 07:52] LABS: BUN Creatinine Ratio 11.5 (10-20); Calcium 7.9 mg/dl (8.5-10.1); Creatinine Clr Calc Pharmacy 33.7 ml/min; Est GFR (African American) 25.4; Est GFR (Non-African American) 21.9; Magnesium 1.8 mg/dl (1.8-2.4); Partial Thromboplastin Time 48.4 Seconds (21.0-31.0); Potassium 4.8 mmol/L (3.5-5.1)
[2018-12-06 07:55] LABS: Phosphorus 2.8 mg/dl (2.5-4.9)
[2018-12-06] MEDS: INSULIN ASPART 100 UNITS/ML 3 ML PEN SC SCH ×4 (08:38→21:35)
[2018-12-06] MEDS: DOCUSATE SODIUM 100 MG CAP PO SCH ×2 (08:39→20:20)
[2018-12-06] MEDS: CHOLECALCIFEROL 1,000 UNITS TAB PO SCH (08:39)
[2018-12-06] MEDS: ASPIRIN 81 MG ECTAB PO SCH (08:39)
[2018-12-06] MEDS: AMLODIPINE BESYLATE 5 MG TAB PO SCH (08:39)
--- NOTE | 2018-12-06 11:08 | Cardiology Progress Note ---
Date of Service December 06, 2018 Assessment & Plan (1) Paroxysmal atrial fibrillation with rapid ventricular response: Patient spontaneously converted to sinus rhythm with IV amiodarone. In review of records he had paroxysmal atrial fibrillation post adrenalectomy in September 2018 Plan oral amiodarone load switched to twice daily at discharge Daily EKG Continue IV anticoagulation initially short-term will need to discuss long-term indications and treatment will warrant long-term anticoagulation with warfarin (2) Wide-complex tachycardia: Atrial fibrillation with rapid response with rate related left bundle branch block/aberrant conduction (3) Cardiomyopathy: Mild LV systolic dysfunction noted on resting 2D transthoracic echocardiogram. Echocardiogram this morning demonstrates improved LV systolic function (4) HECTOR (acute kidney injury): May need diuretic at this point in time (5) Fever: (6) Elevated troponin: (7) Metastatic malignant melanoma: No cardiac mass noted. Restart chemotherapy as per oncology and pending results of repeat echocardiac (8) Adrenal insufficiency: Subjective Patient seen and examined, chart medications telemetry reviewed. No further atrial fibrillation or arrhythmias overnight. Renal function appears to have plateaued. No chest pains or discomfort. I reviewed echocardiogram from earlier this morning which demonstrates ejection fraction 50-55% without wall motion abnormality no cardiac masses. No bleeding difficulties no melena hem atochezia dysuria hematuria. Does note some increase in abdominal girth and lower extremity edema. Review of Systems Review of Systems: As per HPI and otherwise negative Physical Exam Constitutional: WD/WN, vitals as above + obese ENMT: external ear and nose normal, oropharynx normal Neck: trachea midline, no thyromegaly Cardiovascular: Rate/Rhythm: regular rate and regular rhythm Heart Sounds: normal S1 and normal S2; no gallop and no murmur Vessels: no JVD Extremities: + edema (12+ bilateral lower extremity) Gastrointestinal (Abdomen): normal bowel sounds, soft, nontender, no hepatosplenomegaly Abdominal girth mildly distended Results & Data Vital Signs (Past 12 Hours) Vital Signs Temp Pulse Pulse Resp BP BP Pulse Ox 12/06/18 10:55 36.7 C 70 19 127/77 94 12/06/18 08:17 80 12/06/18 08:03 38.0 C H 85 20 138/75 94 12/06/18 03:34 36.7 C 75 22 155/78 H 99 12/05/18 23:45 59 L 12/05/18 23:31 68 118/72 12/05/18 23:28 36.4 C L 68 16 118/72 99 Laboratory Results Laboratory Results - last 24 hr 12/05/18 12/05/18 12/05/18 11:42 16:04 20:36 WBC RBC Hgb Hct MCV MCH MCHC RDW Std Deviation RDW Coeff of Scottie Plt Count MPV Immature Gran % (Auto) Neut % (Auto) Lymph % (Auto) [place] % (Auto) Eos % (Auto) Baso % (Auto) Immature Gran # (Auto) Neut # (Auto) Lymph # (Auto) [place] # (Auto) Eos # (Auto) Baso # (Auto) APTT PTT Ratio Sodium Potassium Chloride Carbon Dioxide Anion Gap BUN Creatinine Est Cr Clr Drug Dosing Est GFR ( Amer) Est GFR (Non-Af Amer) BUN/Creatinine Ratio Glucose POC Glucose 140 H 155 H 150 H Calcium Phosphorus Magnesium 12/06/18 12/06/18 12/06/18 07:04 07:04 07:04 WBC 2.41 L RBC 3.86 L Hgb 10.5 L Hct 32.4 L MCV 83.9 MCH 27.2 MCHC 32.4 RDW Std Deviation 47.4 H RDW Coeff of Scottie 15.3 H Plt Count 86 L MPV 10.5 H Immature Gran % (Auto) 0.4 Neut % (Auto) 72.7 Lymph % (Auto) 14.5 [place] % (Auto) 10.8 Eos % (Auto) 1.2 Baso % (Auto) 0.4 Immature Gran # (Auto) 0.01 Neut # (Auto) 1.75 Lymph # (Auto) 0.35 L [place] # (Auto) 0.26 Eos # (Auto) 0.03 Baso # (Auto) 0.01 APTT 48.4 H* PTT Ratio 1.8 Sodium 134 L Potassium 4.8 Chloride 104 Carbon Dioxide 23 Anion Gap 7.0 BUN 32 H Creatinine 2.78 H Est Cr Clr Drug Dosing 33.7 Est GFR ( Amer) 25.4 Est GFR (Non-Af Amer) 21.9 BUN/Creatinine Ratio 11.5 Glucose 110 H POC Glucose Calcium 7.9 L Phosphorus 2.8 Magnesium 1.8 12/06/18 07:24 WBC RBC Hgb Hct MCV MCH MCHC RDW Std Deviation RDW Coeff of Scottie Plt Count MPV Immature Gran % (Auto) Neut % (Auto) Lymph % (Auto) [place] % (Auto) Eos % (Auto) Baso % (Auto) Immature Gran # (Auto) Neut # (Auto) Lymph # (Auto) [place] # (Auto) Eos # (Auto) Baso # (Auto) APTT PTT Ratio Sodium Potassium Chloride Carbon Dioxide Anion Gap BUN Creatinine Est Cr Clr Drug Dosing Est GFR ( Amer) Est GFR (Non-Af Amer) BUN/Creatinine Ratio Glucose POC Glucose 128 H Calcium Phosphorus Magnesium Diagnostic Findings Echocardiogram 12/06/2018 EF 55% no wall motion normalities or masses (1) Fever Fever type: unspecified Qualified Code(s): R50.9 - Fever, unspecified
[2018-12-06] MEDS ORDERED: VANCOMYCIN TROUGH ONE (11:30)
--- NOTE | 2018-12-06 11:56 | Hospitalist Progress Note ---
Date of Service December 06, 2018 Assessment & Plan (1) Wide-complex tachycardia: History of atrial fibrillation with RVR as an outpatient since September of this year EKG in the ER did show atrial fibrillation with RVR rate of 140 with questionable VT Patient remains asymptomatic without any chest pain and/or palpitation He was started with intravenous amiodarone and heparin We will trend cardiac enzymes Echo has been done which showed EF of 40% and that is a decrease from 50% as in September of this year Cardiology consulted-appreciate input and recommendation Reverted to sinus rhythm since last night Amiodarone has been changed to oral Continue heparin and will need long-term anticoagulation Remains in sinus rhythm with symptomatic improvement Denies any cardiac symptoms Repeat echo: Showed much improvement of EF. Ventricle is normal in size, borderline concentric LVH, no wall motion abnormalities, EF 50 to 55% from 40% on admission. 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 Did not tolerate initial chemo at the time and noted to have right abdomen metastasis He is a status post appendectomy and on replacement dose of hydrocortisone Currently he has been taking Tafinlar 150 mg twice daily and Mekinist 2 mg daily Discussed with oncologist and will hold this medicine for now (3) HECTOR (acute kidney injury): Noted to have acute kidney injury since September of this year Creatinine has been worse since the last exam He looks dry with increasing BUN We will give intravenous fluid and monitor PRP Replace electrolytes as needed Continue with IV fluid and electrolyte replacement as needed Creatinine is improved to 2.78 today We will check PRP, if there is no improvement we will have to get nephrology consult (4) Hypertension: Noted to have hypertension in the emergency room Has been on amlodipine We will give intravenous Lopressor as needed to control blood pressure Hypertension may be secondary to chemotherapeutic medications Blood pressure seems to be controlled (5) Sleep apnea: Uses CPAP at home (6) Adrenal insufficiency: Received stress dose of hydrocortisone in the ER We will continue with his usual dose of hydrocortisone (7) Acute hyponatremia: Sodium level was noted to be 130 Has been getting intravenous fluid We will recheck in a.m.-sodium level went up to 133 (8) Cardiomyopathy: His EF has been reduced since September from 54% to 40% as of today May be secondary to chemotherapeutic agent We are holding chemotherapeutic medicines now Repeat echo showed improvement of EF (9) Febrile neutropenia: Possible Febrile Illness No fever but chills Patient is immunosuppressed Chest x-ray and UA unremarkable Blood and urine cultures have been taken Increased temperature this morning to more than 38 C We will start intravenous Vanco and Zosyn empirically for now Urine culture grew enterococcus fecaliths and pansensitive Blood cultures have been negative but remains febrile Will repeat blood culture and continue current antibiotic as of today Repeat blood culture is negative he can have oral ampicillin on discharge Subjective 12/04 Patient was seen and examined in the telemetry unit He has been feeling a little bit better since admission He is back in sinus rhythm with intravenous amiodarone Denies any symptoms except mild shortness of breath at rest He was noted to have a fever of more than 38 C this morning with chills 12/05 Patient is seen and examined in telemetry unit He has been feeling a lot better since admission He remains in sinus rhythm on amiodarone Denies any chest pain, shortness of breath, palpitation, abdominal pain nausea and/or vomiting 12/06 Patient was seen and examined in telemetry unit He has been feeling a lot better Still complains to have some shortness of breath at rest No more palpitation Review of Systems Respiratory: + dyspnea on exertion Cardiovascular: + dyspnea and + lightheadedness Gastrointestinal: + nausea Neurologic: + generalized weakness Psychiatric: as per Subjective / HPI Physical Exam Physical Exam: No apparent distress at rest and sitting on a chair out of bed Constitutional: well developed, + acute distress (Minimal shortness of breath at rest but the patient denies), + ill appearing and + obese Eyes: PERRL, conjunctivae normal, anicteric sclerae ENMT: external ear and nose normal, oropharynx normal Neck: trachea midline, no thyromegaly Respiratory: + respiratory distress (Minimal respiratory distress at rest) and + cough Auscultation: + diminished lung sounds; no crackles and no wheezes Cardiovascular: Rate/Rhythm: regular rate and regular rhythm Heart Sounds: no murmur Gastrointestinal (Abdomen): normal bowel sounds, soft, nontender, no hepatosplenomegaly Inspection/Auscultation: + abdomen distended Percussion/Palpation: abdomen soft; abdomen nontender Neurologic: patellar DTR's 2+ bilat, sensation intact Psychiatric: A+Ox3, euthymic affect Lymphatic: no cervical or axillary lymphadenopathy Results & Data Vital Signs (Past 12 Hours) Vital Signs Temp Pulse Pulse Resp BP Pulse Ox 12/06/18 10:55 36.7 C 70 19 127/77 94 12/06/18 08:17 80 12/06/18 08:03 38.0 C H 85 20 138/75 94 12/06/18 03:34 36.7 C 75 22 155/78 H 99 Laboratory Results Short CBC 12/06/18 Range/Units 07:04 WBC 2.41 L (4.8-10.8) K/uL Hgb 10.5 L (14.0-18.0) g/dL Hct 32.4 L (42-52) % Plt Count 86 L (130-400) K/uL BMP 12/06/18 07:04 Sodium 134 L Potassium 4.8 Chloride 104 Carbon Dioxide 23 BUN 32 H Creatinine 2.78 H Glucose 110 H Calcium 7.9 L Medications Administered Current Inpatient Medications Acetaminophen (Tylenol) 650 mg PO Q4H PRN PRN Reason: Pain or Fever Stop: 01/02/19 17:53 Last Admin: 12/05/18 08:36 Dose: 650 mg Documented by: Amiodarone HCl (Cordarone) 200 mg PO Q6 [facility] Stop: 01/03/19 11:59 Last Admin: 12/06/18 05:31 Dose: 200 mg Documented by: Amlodipine Besylate (Norvasc) 5 mg PO QAM [facility] Stop: 01/03/19 08:59 Last Admin: 12/06/18 08:39 Dose: 5 mg Documented by: Aspirin (Ecotrin Ectab) 81 mg PO QAM [facility] Stop: 01/03/19 08:59 Last Admin: 12/06/18 08:39 Dose: 81 mg Documented by: Dextrose (Dextrose 50%) 25 - 50 ml IV UD PRN; Protocol PRN Reason: Hypoglycemia Protocol Stop: 01/02/19 18:56 Docusate Sodium (Colace) 100 mg PO BID [facility] Stop: 01/02/19 20:59 Last Admin: 12/06/18 08:39 Dose: 100 mg Documented by: Glucagon (Glucagen) 1 mg SQ UD PRN; Protocol PRN Reason: Hypoglycemia Protocol Stop: 01/02/19 18:56 Glucose (Dex4 Glucose) 4 - 8 tabs PO UD PRN; Protocol PRN Reason: Hypoglycemia Protocol Stop: 01/02/19 18:56 Glucose (Glucose 40%) 15 - 30 gm PO UD PRN; Protocol PRN Reason: Hypoglycemia Protocol Stop: 01/02/19 18:56 Hydrocortisone (Cortef) 20 mg PO DAILY@0600,1200,1500 [facility] Stop: 01/03/19 05:59 Last Admin: 12/06/18 05:31 Dose: 20 mg Documented by: Heparin Sodium/Dextrose (Heparin Sodium/Dextrose) 25,000 units in 500 mls @ 23 mls/hr IV .[id number] [facility]; Protocol Stop: 01/02/19 20:59 Last Titration: 12/06/18 08:00 Dose: 1,150 units/hr, 23 mls/hr Documented by: Piperacillin Sod/Tazobactam (Sod 4.5 gm/ Dextrose) 120 mls @ 30 mls/hr IV Q8H [facility]; Protocol Stop: 12/14/18 17:59 Last Admin: 12/06/18 09:56 Dose: 28.8 mls/hr Documented by: Vancomycin HCl 1,500 mg/ (Sodium Chloride) 530 mls @ 200 mls/hr IV Q24H [facility] Stop: 12/14/18 11:59 Last Infusion: 12/05/18 14:36 Dose: Infused Documented by: Insulin Aspart (Novolog Flexpen) 0 units SC ACHS [facility] Stop: 01/02/19 20:59 Last Admin: 12/06/18 08:38 Dose: 3 units Documented by: Lorazepam (Ativan) 1 mg PO BID PRN PRN Reason: anxiety Stop: 01/02/19 20:23 Metoprolol Tartrate (Lopressor) 5 mg IV Q6 [facility] Stop: 01/02/19 19:59 Last Admin: 12/06/18 06:19 Dose: Not Given Documented by: Miscellaneous (Carbohydrates For Hypoglycemia) 15 - 30 gm PO UD PRN PRN Reason: Hypoglycemia Treatment Stop: 01/02/19 18:56 Miscellaneous Information (Consult) 1 ea N/A UD PRN PRN Reason: Consult Stop: 01/03/19 11:16 Miscellaneous Information (Consult) 1 ea N/A UD PRN PRN Reason: Consult Stop: 01/03/19 11:16 Pramipexole Dihydrochloride (Mirapex) 0.5 mg PO DAILY@1500,2100 [facility] Stop: 01/02/19 20:59 Last Admin: 12/05/18 20:52 Dose: 0.5 mg Documented by: Vitamin D (Vitamin D3) 1,000 units PO [facility] Stop: 01/03/19 08:59 Last Admin: 12/06/18 08:39 Dose: 1,000 units Documented by:
[2018-12-06] MEDS: VANCOMYCIN HCL 1,500 MG in SODIUM CHLORIDE 0.9% 500 ML IV SCH (12:13)
--- NOTE | 2018-12-06 13:11 | Pharmacy Report ---
Pharmacy Abx Dose Short Note - Date of Service December 06, 2018 - Assessment & Plan Assessment 73 year old M receiving Vancomycin 1500mg Q24h for treatment of UTI and febrile neutropenia. Day # 3 of antimicrobial therapy. Febrile this morning. Urine culture growing aguilar sensitive enterococcus. Spoke with the Hospitalist today regarding Mr. Tavares's antibiotic regimen -- the patient was febrile again this AM (38 C). Repeat blood cultures have been ordered, and if the preliminary results are negative, he agreed we could deescalate to something like Amoxicillin tomorrow. Laboratory Tests 12/06/18 11:49 Vancomycin Trough 15.6 Plan Vancomycin * Trough level of 15.6 mcg/mL is therapeutic. However, this level is not currently reflective of steady state. More to evaluate for accumulation in the setting of obesity (BMI = 42.6) * Continue dose of 1500 mg IV every 24 hours Pharmacy will continue to follow and will adjust dose/frequency as necessary. Thank you.
[2018-12-06] MEDS: PRAMIPEXOLE DIHYDROCHLO 0.5 MG TAB PO SCH ×2 (15:32→20:20)
[2018-12-06] MEDS: WARFARIN SOD 7.5 MG TAB PO SCH (15:32)
[2018-12-06] MEDS ORDERED: WARFARIN SOD 10 MG TAB PO SCH (16:00)
[2018-12-07] MEDS: Heparin Adult STANDARD Wt-Based Dextrose 5% 25,000 units/500 mL IV SCH ×2 (01:45→21:31)
[2018-12-07] MEDS: PIPERACILLIN/TAZOBACTAM 4.5 GM in DEXTROSE 5% 100 ML IV SCH ×2 (01:45→11:31)
[2018-12-07] MEDS: AMIODARONE 200 MG TAB PO SCH ×4 (06:08→23:27)
[2018-12-07] MEDS: HYDROCORTISONE 10 MG TAB PO SCH ×3 (06:08→16:05)
[2018-12-07 06:52] LABS: Hemoglobin 10.8 g/dL (14.0-18.0); Mean Corpuscular Hgb Conc 32.7 g/dL (32-36); Mean Corpuscular Volume 83.3 fL (80-100); Mean Platelet Volume 10.1 fL (7.4-10.4); Platelet Count 106 K/uL (130-400); RDW Coefficient of Variation 15.2 % (11.5-14.5); RDW Standard Deviation 46.7 fL (36.4-46.3); Red Blood Count 3.96 M/uL (4.7-6.1); White Blood Count 2.63 K/uL (4.8-10.8)
[2018-12-07 07:13] LABS: INR 1.1 (0.9-1.1); Partial Thromboplastin Ratio 1.9; Prothrombin Time 11.4 Seconds (9.0-12.0)
[2018-12-07 07:15] LABS: Partial Thromboplastin Time 51.5 Seconds (21.0-31.0)
[2018-12-07 07:17] LABS: Creatinine Clr Calc Pharmacy 36.3 ml/min; Est GFR (African American) 27.8
[2018-12-07] MEDS: INSULIN ASPART 100 UNITS/ML 3 ML PEN SC SCH ×4 (08:06→20:30)
[2018-12-07] MEDS: AMLODIPINE BESYLATE 5 MG TAB PO SCH (08:07)
[2018-12-07] MEDS: CHOLECALCIFEROL 1,000 UNITS TAB PO SCH (08:07)
[2018-12-07] MEDS: ASPIRIN 81 MG ECTAB PO SCH (08:07)
[2018-12-07] MEDS: DOCUSATE SODIUM 100 MG CAP PO SCH ×2 (08:07→20:28)
[2018-12-07] MEDS ORDERED: FUROSEMIDE 40 MG/4 ML VIAL IV SCH (10:15)
[2018-12-07] MEDS: FUROSEMIDE 40 MG in SYRINGE 0 ML IV SCH (12:22)
[2018-12-07] MEDS: AMOXICILLIN 500 MG CAP PO SCH ×2 (13:00→20:29)
--- NOTE | 2018-12-07 15:00 | Cardiology Progress Note ---
Date of Service December 07, 2018 Assessment & Plan (1) Paroxysmal atrial fibrillation with rapid ventricular response: Patient has had reversion to A. fib flutter with transient aberrant conduction. We will continue amiodarone Add Toprol-XL 12.5 mg daily Continue IV anticoagulation initially short-term will t will warrant long-term anticoagulation with warfarin (2) Wide-complex tachycardia: Atrial fibrillation with rapid response with rate related left bundle branch block/aberrant conduction (3) Cardiomyopathy: Mild LV systolic dysfunction noted on resting 2D transthoracic echocardiogram. Echocardiogram this morning demonstrates improved LV systolic function (4) HECTOR (acute kidney injury): Responding to IV diuretic (5) Fever: (6) Elevated troponin: (7) Metastatic malignant melanoma: No cardiac mass noted. Restart chemotherapy as per oncology and pending results of repeat echocardiac (8) Adrenal insufficiency: Subjective Patient seen and examined, chart medications telemetry reviewed. Patient lapsed back into atrial flutter with intermittent aberrant conduction proximally 430 this morning. Relatively asymptomatic. Notes no dizziness or lightness notes no syncope or near syncope. Is responding to dose of furosemide this morning. Remains anticoagulated Physical Exam Constitutional: WD/WN, vitals as above + obese ENMT: external ear and nose normal, oropharynx normal Neck: trachea midline, no thyromegaly Cardiovascular: Rate/Rhythm: + irregularly irregular Heart Sounds: normal S1 and normal S2; no gallop and no murmur Vessels: no JVD Extremities: + edema (12+ bilateral lower extremity) Gastrointestinal (Abdomen): normal bowel sounds, soft, nontender, no hepatosplenomegaly Results & Data Vital Signs (Past 12 Hours) Vital Signs Temp Pulse Resp BP Pulse Ox 12/07/18 11:48 36.8 C 92 H 18 154/63 H 96 12/07/18 07:47 36.9 C 86 18 160/76 H 95 12/07/18 04:29 36.4 C L 82 26 H 173/70 H 95 (1) Fever Fever type: unspecified Qualified Code(s): R50.9 - Fever, unspecified
--- NOTE | 2018-12-07 16:02 | Hospitalist Progress Note ---
Date of Service December 07, 2018 Assessment & Plan (1) Wide-complex tachycardia: History of atrial fibrillation with RVR as an outpatient since September of this year EKG in the ER did show atrial fibrillation with RVR rate of 140 with questionable VT Patient remains asymptomatic without any chest pain and/or palpitation He was started with intravenous amiodarone and heparin We will trend cardiac enzymes Echo has been done which showed EF of 40% and that is a decrease from 50% as in September of this year Cardiology consulted-appreciate input and recommendation Reverted to sinus rhythm since last night Amiodarone has been changed to oral Continue heparin and will need long-term anticoagulation Remains in sinus rhythm with symptomatic improvement Denies any cardiac symptoms Repeat echo: Showed much improvement of EF. Ventricle is normal in size, borderline concentric LVH, no wall motion abnormalities, EF 50 to 55% from 40% on admission. No myocardial masses Went back to A. 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 Did not tolerate initial chemo at the time and noted to have right abdomen metastasis He is a status post appendectomy and on replacement dose of hydrocortisone Currently he has been taking Tafinlar 150 mg twice daily and Mekinist 2 mg daily Discussed with oncologist and will hold this medicine for now (3) HECTOR (acute kidney injury): Noted to have acute kidney injury since September of this year Creatinine has been worse since the last exam He looks dry with increasing BUN We will give intravenous fluid and monitor PRP Replace electrolytes as needed Continue with IV fluid and electrolyte replacement as needed Creatinine is improved to 2.78 today Renal function is getting better but seems to have gained weight from fluid Will start Lasix 40 mg IV daily Nephrology consulted for further management of CKD (4) Hypertension: Noted to have hypertension in the emergency room Has been on amlodipine We will give intravenous Lopressor as needed to control blood pressure Hypertension may be secondary to chemotherapeutic medications Blood pressure seems to be controlled (5) Sleep apnea: Uses CPAP at home (6) Adrenal insufficiency: Received stress dose of hydrocortisone in the ER We will continue with his usual dose of hydrocortisone (7) Acute hyponatremia: Sodium level was noted to be 130 Has been getting intravenous fluid We will recheck in a.m.-sodium level went up to 133 (8) Cardiomyopathy: His EF has been reduced since September from 54% to 40% as of today May be secondary to chemotherapeutic agent We are holding chemotherapeutic medicines now Repeat echo showed improvement of EF (9) Febrile neutropenia: Possible Febrile Illness No fever but chills Patient is immunosuppressed Chest x-ray and UA unremarkable Blood and urine cultures have been taken Increased temperature this morning to more than 38 C We will start intravenous Vanco and Zosyn empirically for now Urine culture grew enterococcus fecaliths and pansensitive Blood cultures have been negative but remains febrile Will repeat blood culture -negative IV antibiotic has been discontinued Amoxicillin for treatment of UTI-for 10 days total PT and OT evaluation (10) Diabetes type 2, uncontrolled: Has not been on any medication Hemoglobin A1c as of 07 October was 6.1 Continue SSI Subjective 12/04 Patient was seen and examined in the telemetry unit He has been feeling a little bit better since admission He is back in sinus rhythm with intravenous amiodarone Denies any symptoms except mild shortness of breath at rest He was noted to have a fever of more than 38 C this morning with chills 12/05 Patient is seen and examined in telemetry unit He has been feeling a lot better since admission He remains in sinus rhythm on amiodarone Denies any chest pain, shortness of breath, palpitation, abdominal pain nausea and/or vomiting 12/06 Patient was seen and examined in telemetry unit He has been feeling a lot better Still complains to have some shortness of breath at rest No more palpitation 12/07 The patient is seen and examined in telemetry unit He went back to atrial fibrillation with aberrant conduction as of yesterday Denies any symptoms Looks bloated with increasing weight gain Review of Systems Review of Systems: All systems reviewed and are unremarkable except as noted below Respiratory: + dyspnea on exertion Cardiovascular: + dyspnea and + lightheadedness; no chest pain Gastrointestinal: + nausea Neurologic: + generalized weakness Psychiatric: as per Subjective / HPI Physical Exam Physical Exam: Anxious with minimal shortness of breath at rest Constitutional: well developed, + acute distress (Minimal shortness of breath at rest but the patient denies), + ill appearing and + obese Eyes: PERRL, conjunctivae normal, anicteric sclerae ENMT: external ear and nose normal, oropharynx normal Neck: trachea midline, no thyromegaly Respiratory: + respiratory distress (Minimal respiratory distress at rest) and + cough Auscultation: + diminished lung sounds and + crackles (Minimal crackles at the bases); no wheezes Cardiovascular: Rate/Rhythm: regular rate and regular rhythm Heart Sounds: no murmur Extremities: + edema (Trace edema bilaterally) Gastrointestinal (Abdomen): normal bowel sounds, soft, nontender, no hepatosplenomegaly Inspection/Auscultation: + abdomen distended Percussion/Palpation: abdomen soft; abdomen nontender Neurologic: patellar DTR's 2+ bilat, sensation intact Psychiatric: A+Ox3, euthymic affect Lymphatic: no cervical or axillary lymphadenopathy Results & Data Vital Signs (Past 12 Hours) Vital Signs Temp Pulse Resp BP Pulse Ox 12/07/18 15:19 36.4 C L 70 20 121/72 97 12/07/18 11:48 36.8 C 92 H 18 154/63 H 96 12/07/18 07:47 36.9 C 86 18 160/76 H 95 12/07/18 04:29 36.4 C L 82 26 H 173/70 H 95 Laboratory Results Short CBC 12/07/18 Range/Units 06:38 WBC 2.63 L (4.8-10.8) K/uL Hgb 10.8 L (14.0-18.0) g/dL Hct 33.0 L (42-52) % Plt Count 106 L (130-400) K/uL BMP 12/07/18 06:38 Creatinine 2.58 H Medications Administered Current Inpatient Medications Acetaminophen (Tylenol) 650 mg PO Q4H PRN PRN Reason: Pain or Fever Stop: 01/02/19 17:53 Last Admin: 12/05/18 08:36 Dose: 650 mg Documented by: Amiodarone HCl (Cordarone) 200 mg PO Q6 [facility] Stop: 01/03/19 11:59 Last Admin: 12/07/18 12:24 Dose: 200 mg Documented by: Amlodipine Besylate (Norvasc) 5 mg PO QAM [facility] Stop: 01/03/19 08:59 Last Admin: 12/07/18 08:07 Dose: 5 mg Documented by: Amoxicillin (Amoxil) 500 mg PO TID [facility]; Protocol Stop: 12/17/18 13:59 Last Admin: 12/07/18 13:00 Dose: 500 mg Documented by: Aspirin (Ecotrin Ectab) 81 mg PO QAM [facility] Stop: 01/03/19 08:59 Last Admin: 12/07/18 08:07 Dose: 81 mg Documented by: Dextrose (Dextrose 50%) 25 - 50 ml IV UD PRN; Protocol PRN Reason: Hypoglycemia Protocol Stop: 01/02/19 18:56 Docusate Sodium (Colace) 100 mg PO BID [facility] Stop: 01/02/19 20:59 Last Admin: 12/07/18 08:07 Dose: Not Given Documented by: Glucagon (Glucagen) 1 mg SQ UD PRN; Protocol PRN Reason: Hypoglycemia Protocol Stop: 01/02/19 18:56 Glucose (Dex4 Glucose) 4 - 8 tabs PO UD PRN; Protocol PRN Reason: Hypoglycemia Protocol Stop: 01/02/19 18:56 Glucose (Glucose 40%) 15 - 30 gm PO UD PRN; Protocol PRN Reason: Hypoglycemia Protocol Stop: 01/02/19 18:56 Hydrocortisone (Cortef) 20 mg PO DAILY@0600,1200,1500 [facility] Stop: 01/03/19 05:59 Last Admin: 12/07/18 12:59 Dose: 20 mg Documented by: Heparin Sodium/Dextrose (Heparin Sodium/Dextrose) 25,000 units in 500 mls @ 23 mls/hr IV .[id number] [facility]; Protocol Stop: 01/02/19 20:59 Last Titration: 12/07/18 07:30 Dose: 1,150 units/hr, 23 mls/hr Documented by: Furosemide 40 mg/ Syringe 4 mls @ 4 mls/min IV DAILY [facility] Stop: 01/06/19 10:14 Last Admin: 12/07/18 12:22 Dose: 4 mls/min Documented by: Insulin Aspart (Novolog Flexpen) 0 units SC ACHS [facility] Stop: 01/02/19 20:59 Last Admin: 12/07/18 12:23 Dose: 3 units Documented by: Lorazepam (Ativan) 1 mg PO BID PRN PRN Reason: anxiety Stop: 01/02/19 20:23 Metoprolol Succinate (Toprol Xl) 12.5 mg PO [facility] Stop: 01/06/19 15:29 Miscellaneous (Carbohydrates For Hypoglycemia) 15 - 30 gm PO UD PRN PRN Reason: Hypoglycemia Treatment Stop: 06/16/19 18:56 Pramipexole Dihydrochloride (Mirapex) 0.5 mg PO DAILY@1500,2100 [facility] Stop: 01/02/19 20:59 Last Admin: 12/06/18 20:20 Dose: 0.5 mg Documented by: Vitamin D (Vitamin D3) 1,000 units PO QAM [facility] Stop: 01/03/19 08:59 Last Admin: 12/07/18 08:07 Dose: 1,000 units Documented by: Warfarin Sodium (Coumadin) 7.5 mg PO DAILY@1600 [facility] Stop: 01/05/19 15:59 Last Admin: 12/06/18 15:32 Dose: 7.5 mg Documented by:
[2018-12-07] MEDS: METOPROLOL SUCC 25MG EXT REL TAB PO SCH (16:05)
[2018-12-07] MEDS: WARFARIN SOD 7.5 MG TAB PO SCH (16:06)
[2018-12-07] MEDS: PRAMIPEXOLE DIHYDROCHLO 0.5 MG TAB PO SCH ×2 (16:06→20:29)
--- NOTE | 2018-12-07 17:21 | Nephrology Consultation ---
Date of Consultation December 07, 2018 Assessment & Plan (1) HECTOR (acute kidney injury): gradually improving; started today on lasix iv 40 mg daily -daily bmp standing wts > 134.7 on 12/06, 135.1 on 12/07 Present on Admission?: Yes (2) Stage 3 chronic kidney disease: baseline creatinine 1.8-2.0 w/ hx of TURBT 2018 fall; granular casts and blood/ protein in urine on presentation; may be challenging to interpret w/ urology hx; unable to access epic remotely today >> asked for [facility] 09/2018 d/c summary to be scanned; likely to need ckd clinic f/u -repeat uacm, get prot/creat -bmp in am -low threshold for renal u/s if worsening function but ok for now Present on Admission?: Yes (3) Adrenal insufficiency: may affect sNa levels though these have been 130 or better; yesterday 134; on tid hydrocortisone currently >bmp in am Present on Admission?: Yes (4) Metastatic malignant melanoma: note that plan is to resume CTX - follow labs/ volume status closely Present on Admission?: Yes History of Present Illness Reason for Consultation: HECTOR on CKD Requesting Physician: Dr Bales Attending Physician: Edgar Bales MD History of Present Illness 73 y/o M whom I'm asked to see for HECTOR on CKD. he was admitted here on 12/03 w/ wide complex tachycardia in the setting of treatment for metastatic malignant melanoma. PMH includes metastatic melanoma originally dx'd 2013, adrenal in sufficiency s/p L adrenalectomy 03/2017 for melanoma mets and as of 02/2018 w/ R adrenal mets treated w/ XRT and CTX, s/p 04/2018 TURBT and partial bladder tumor resection for melanoma mets to bladder, HPTH, HTN, LILLIANA on cpap, DM 2, recently dx'd A fib in 09/2018 during admission to [facility] for R adrenalectomy. During September [facility] admission he had HECTOR w/ peak creatinine in 3's. His baseline creatinine is 1.8-2.0 in 2018. He has some renal recovery since [facility] September d/c. he was recently started on or had dose change of CTX meds to trametinib and dabrafenib. he came to the ER on 12/03 w/ chills and fatigue >> found to have wide complex tachycardia concerning for ventricular arrhythmia versus pAF w/ RVR. He needed amiodarone IV initially. concern was at admission for possible ECOLOGY PROFESSOR from his CTX. his presenting creatinine on admission was 2.9 on 12/03 w/ peak value 3.1 on 12/05, w/ down trend today to 2.6. Serum chemistries have been near-normal. he is neutropenic and has had a few F since admission > on 12/04 to 38.2; on 12/06 to 38.0. Renal labs have been improving since admission; pt states he feels much better from volume standpoint. Allergies Allergy/AdvReac Type Severity Reaction Status Date / Time perflutren Allergy Intermediate GI SYMPTOMS Verified 12/03/18 15:15 propylene glycol Allergy Intermediate GI SYMPTOMS Verified 12/03/18 15:15 simvastatin Allergy Unknown JOINT AND Verified 12/03/18 15:15 MUSCLE PAIN Home Medications Home Medications Medication Instructions Recorded Confirmed Type amlodipine 5 mg PO QAM 04/20/18 12/03/18 History cholecalciferol (vitamin D3) 1,000 unit PO QAM 04/20/18 12/03/18 History [Vitamin D3] docusate sodium [Colace] 100 mg PO BID 04/20/18 12/03/18 History hydrocortisone 20 mg PO UD 04/20/18 12/03/18 History pramipexole 0.5 mg tablet 0.5 mg PO UD 06/01/18 12/03/18 History lorazepam 1 mg tablet 1 mg PO BID PRN tab 08/10/18 12/03/18 History ondansetron HCl 4 mg tablet 4 mg PO Q8H PRN tab 08/10/18 12/03/18 History dabrafenib 150 mg PO Q12 12/03/18 12/03/18 History trametinib [Mekinist] 1 mg PO QAM 12/03/18 12/03/18 History Patient History Family History Father No problems noted. Mother Colon cancer, Onset Age: 85 Chemo and Resection - Alive and well now Sister Breast cancer, Onset Age: 55 Had Radiation - Alive and well now Sister No problems noted. Sister No problems noted. Sister No problems noted. Sister No problems noted. Brother No problems noted. Son No problems noted. Son No problems noted. 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 Required: No Beliefs That Will Affect Care: None marital status: Single Current Living Situation: Significant Other current occupational status: retired current occupation: Retired - [employer] Other Information That Helps Us Care for You: No Feels Safe at Home: Yes Safety Concerns: Feels Safe At This Time Smoking Status: Never smoker Do You Dip or Chew Tobacco: No Second Hand Exposure: No Tobacco Cessation Education Requested by Patient: No Hx Alcohol Use: No Hx Substance Use: No caffeine: Yes (2 cups of coffee/day ) during the past year weight has: remained stable Review of Systems Review of Systems: All systems reviewed & are unremarkable except as noted in HPI & below Constitutional: as per Subjective / HPI and + fatigue (but better than admission) Eyes: no worsening vision Ear, Nose, Mouth, Throat: no dry mouth Respiratory: + dyspnea on exertion (but better than admission); no cough Cardiovascular: + edema (better than admission); no chest pain and no palpitations Gastrointestinal: + diarrhea/loose stools; no abdominal pain, no belching and no bloating Genitourinary: no dysuria, no difficulty urinating, no urinary frequency and no urinary hesitancy Endocrine: + fatigue Hematologic / Lymphatic: no easy bleeding Physical Exam Constitutional: well developed, well nourished and + morbidly obese on RA, maneuvers w/ effort for exam Eyes: EOM intact bilaterally ENMT: Ears: no external ear abnormality Nose: no external nose abnormality Mouth: + dry oral mucous membranes Neck: no nuchal rigidity Respiratory: normal respiratory effort Auscultation: + diminished lung sounds and + crackles (a few L base) Cardiovascular: Rate/Rhythm: + irregularly irregular Extremities: + edema (trace ankle BL) Gastrointestinal (Abdomen): Inspection/Auscultation: + abdomen distended and normal bowel sounds (bordlerine hyperactive) Percussion/Palpation: abdomen soft; abdomen nontender and no ascites Musculoskeletal: Extremities: strength 5/5 throughout Skin: no rashes, warm and dry brown patches on limbs Neurologic: comer, fluent speech, no china tremor Psychiatric: A+Ox3, euthymic affect Eye Contact: good eye contact Speech: normal rate/rhythm/volume of speech Genitourinary: no mejia Results & Data Vital Signs (Past 12 Hours) Vital Signs Temp Pulse Pulse Resp BP Pulse Ox 12/07/18 15:59 80 12/07/18 15:19 36.4 C L 70 20 121/72 97 12/07/18 11:48 36.8 C 92 H 18 154/63 H 96 12/07/18 07:47 36.9 C 86 18 160/76 H 95 Laboratory Results Abnormal lab results 12/06/18 12/07/18 12/07/18 Range/Units 21:30 06:38 06:38 WBC 2.63 L (4.8-10.8) K/uL RBC 3.96 L (4.7-6.1) M/uL Hgb 10.8 L (14.0-18.0) g/dL Hct 33.0 L (42-52) % RDW Std Deviation 46.7 H (36.4-46.3) fL RDW Coeff of Scottie 15.2 H (11.5-14.5) % Plt Count 106 L (130-400) K/uL APTT (21.0-31.0) Seconds Creatinine 2.58 H (0.6-1.4) mg/dl POC Glucose 120 H (70-99) 12/07/18 12/07/18 12/07/18 Range/Units 06:38 07:35 11:10 WBC (4.8-10.8) K/uL RBC (4.7-6.1) M/uL Hgb (14.0-18.0) g/dL Hct (42-52) % RDW Std Deviation (36.4-46.3) fL RDW Coeff of Scottie (11.5-14.5) % Plt Count (130-400) K/uL APTT 51.5 H* (21.0-31.0) Seconds Creatinine (0.6-1.4) mg/dl POC Glucose 106 H 100 H (70-99) 12/07/18 Range/Units 16:15 WBC (4.8-10.8) K/uL RBC (4.7-6.1) M/uL Hgb (14.0-18.0) g/dL Hct (42-52) % RDW Std Deviation (36.4-46.3) fL RDW Coeff of Scottie (11.5-14.5) % Plt Count (130-400) K/uL APTT (21.0-31.0) Seconds Creatinine (0.6-1.4) mg/dl POC Glucose 109 H (70-99) Diagnostic Findings cxr > no acute CP findings
[2018-12-07 22:31] LABS: Appearance Urine Clear (Clear); Bilirubin Urine Negative (Negative); Color Urine Yellow; Glucose Urine UA Negative (Negative); Ketones Urine Negative (Negative); Leukocyte Esterase Urine Negative (Negative); Nitrite Urine Negative (Negative); Protein Urine Negative (Negative); Specific Gravity Urine 1.013 (1.000-1.030); Urobilinogen Urine Negative (Negative)
[2018-12-07 22:54] LABS: Creatinine Urine Random 26.5 mg/dl; Total Protein Urine Random 7.5 mg/dl (0-11.9)
[2018-12-08] MEDS: HYDROCORTISONE 10 MG TAB PO SCH ×3 (05:46→15:27)
[2018-12-08] MEDS: AMIODARONE 200 MG TAB PO SCH ×2 (05:46→11:52)
[2018-12-08 07:48] LABS: Basophils # (auto) 0.01 K/uL (0-0.2); Basophils % (auto) 0.3 %; Eosinophils # (auto) 0.08 K/uL (0-0.5); Eosinophils % (auto) 2.3 %; Hematocrit (blood only) 36.7 % (42-52); Hemoglobin 11.8 g/dL (14.0-18.0); Immature Granulocytes # (auto) 0.03 K/uL (0.00-0.02); Immature Granulocytes % (auto) 0.9 %; Lymphocytes # (auto) 0.93 K/uL (1.2-3.4); Lymphocytes % (auto) 26.6 %; Mean Corpuscular Hgb Conc 32.2 g/dL (32-36); Mean Corpuscular Volume 83.4 fL (80-100); Mean Platelet Volume 10.9 fL (7.4-10.4); Monocytes % (auto) 11.5 %; Neutrophils # (auto) 2.04 K/uL (1.4-6.5); Neutrophils % (auto) 58.4 %; Platelet Count 141 K/uL (130-400); RDW Coefficient of Variation 15.1 % (11.5-14.5); RDW Standard Deviation 46.1 fL (36.4-46.3); White Blood Count 3.49 K/uL (4.8-10.8)
[2018-12-08 08:08] LABS: INR 1.6 (0.9-1.1); Partial Thromboplastin Ratio 2.7; Prothrombin Time 16.2 Seconds (9.0-12.0)
[2018-12-08] MEDS: ASPIRIN 81 MG ECTAB PO SCH (08:16)
[2018-12-08] MEDS: DOCUSATE SODIUM 100 MG CAP PO SCH ×4 (08:16→20:15)
[2018-12-08] MEDS: AMOXICILLIN 500 MG CAP PO SCH ×3 (08:16→20:11)
[2018-12-08] MEDS: CHOLECALCIFEROL 1,000 UNITS TAB PO SCH (08:17)
[2018-12-08] MEDS: FUROSEMIDE 40 MG in SYRINGE 0 ML IV SCH (08:17)
[2018-12-08 08:19] LABS: Partial Thromboplastin Time 74.1 Seconds (21.0-31.0)
[2018-12-08] MEDS: INSULIN ASPART 100 UNITS/ML 3 ML PEN SC SCH ×4 (08:21→20:15)
[2018-12-08 08:22] LABS: BUN Creatinine Ratio 10.7 (10-20); Calcium 8.7 mg/dl (8.5-10.1); Creatinine Clr Calc Pharmacy 37.7 ml/min; Est GFR (African American) 29.6; Est GFR (Non-African American) 25.5; Magnesium 1.8 mg/dl (1.8-2.4); Potassium 4.5 mmol/L (3.5-5.1)
[2018-12-08 08:46] LABS: Estimated Average Glucose 137 mg/dl
--- NOTE | 2018-12-08 09:02 | Nephrology Progress Note ---
Date of Service December 08, 2018 Assessment & Plan (1) HECTOR (acute kidney injury): gradually improving; started 12/07 on lasix iv 40 mg daily >> will monitor; creat today 2.5, on slow down trend bland urine sediment w/ 300 mg proteinuria >> reassuring; no further intervention -daily bmp standing wts > 134.7 on 12/06, 135.1 on 12/07 (2) Stage 3 chronic kidney disease: baseline creatinine 1.8-2.0 w/ hx of TURBT 2018 fall; granular casts and blood/ protein in urine on presentation; may be challenging to interpret w/ urology hx; unable to access epic remotely today >> asked [place] [facility] [place] d/c summary to be scanned; likely to need ckd clinic f/u -bmp in am -low threshold for renal u/s if worsening function but defer for now as he is clinically improving (albeit slowly) and d/t pt preference to avoid u/s. would avoid CT d/t cost/ radiation exposure (3) Adrenal insufficiency: may affect sNa levels though these have been 130 or better; stable sNa at 134; on tid hydrocortisone currently >bmp in am (4) Metastatic malignant melanoma: note that plan is to resume CTX per last note; defer to primary team on this but would confer closely w/ cardiology as well since concern for ctx- induced SYSTEMS ADMIN here - follow labs/ volume status closely Subjective no interval events; cont to feel improved in terms of breathing; edema. not thr illed to consider renal u/s b/c worries about pain on abd w/ recent surgery w/ pressures for study Review of Systems Review of Systems: All systems reviewed & are unremarkable except as noted in HPI & below Respiratory: no dyspnea on exertion Cardiovascular: + edema (mild dependent); no chest pain and no palpitations Genitourinary: no difficulty urinating Physical Exam Constitutional: well developed, well nourished and + morbidly obese sitting up in chair on RA A& 0 x 3 Eyes: EOM intact bilaterally ENMT: Ears: no external ear abnormality Nose: no external nose abnormality Mouth: + dry oral mucous membranes Neck: no nuchal rigidity Respiratory: normal respiratory effort Auscultation: + diminished lung sounds Cardiovascular: Rate/Rhythm: + irregularly irregular Extremities: + edema (1+ ankle BL) Gastrointestinal (Abdomen): Inspection/Auscultation: + abdomen distended and normal bowel sounds (bordlerine hyperactive) Percussion/Palpation: abdomen soft; abdomen nontender and no ascites Musculoskeletal: Extremities: strength 5/5 throughout Skin: no rashes, warm and dry Neurologic: comer, fluent speech, no tremors Psychiatric: A+Ox3, euthymic affect Eye Contact: good eye contact Speech: normal rate/rhythm/volume of speech Results & Data Vital Signs (Past 12 Hours) Vital Signs Temp Pulse Pulse Resp BP Pulse Ox 12/08/18 06:56 36.8 C 83 19 136/75 95 12/08/18 04:42 37.0 C 62 19 119/81 98 12/08/18 00:22 37.0 C 70 18 117/72 96 12/07/18 23:32 68 Laboratory Results Abnormal lab results 12/07/18 12/07/18 12/07/18 Range/Units 11:10 16:15 20:08 WBC (4.8-10.8) K/uL RBC (4.7-6.1) M/uL Hgb (14.0-18.0) g/dL Hct (42-52) % RDW Coeff of Scottie (11.5-14.5) % MPV (7.4-10.4) fL Immature Gran # (Auto) (0.00-0.02) K/uL Lymph # (Auto) (1.2-3.4) K/uL PT (9.0-12.0) Seconds INR (0.9-1.1) APTT (21.0-31.0) Seconds Sodium (136-145) mmol/L BUN (7-18) mg/dl Creatinine (0.6-1.4) mg/dl Glucose (70-99) mg/dl POC Glucose 100 H 109 H 124 H (70-99) Hemoglobin A1c (4.5-5.6) % Protein/Creatinin Ratio (0-0.2) 12/07/18 12/08/18 12/08/18 Range/Units 22:15 07:28 07:28 WBC 3.49 L (4.8-10.8) K/uL RBC 4.40 L (4.7-6.1) M/uL Hgb 11.8 L (14.0-18.0) g/dL Hct 36.7 L (42-52) % RDW Coeff of Scottie 15.1 H (11.5-14.5) % MPV 10.9 H (7.4-10.4) fL Immature Gran # (Auto) 0.03 H (0.00-0.02) K/uL Lymph # (Auto) 0.93 L (1.2-3.4) K/uL PT 16.2 H (9.0-12.0) Seconds INR 1.6 H (0.9-1.1) APTT 74.1 H* (21.0-31.0) Seconds Sodium (136-145) mmol/L BUN (7-18) mg/dl Creatinine (0.6-1.4) mg/dl Glucose (70-99) mg/dl POC Glucose (70-99) Hemoglobin A1c (4.5-5.6) % Protein/Creatinin Ratio 0.3 H (0-0.2) 12/08/18 12/08/18 12/08/18 Range/Units 07:28 07:28 07:42 WBC (4.8-10.8) K/uL RBC (4.7-6.1) M/uL Hgb (14.0-18.0) g/dL Hct (42-52) % RDW Coeff of Scottie (11.5-14.5) % MPV (7.4-10.4) fL Immature Gran # (Auto) (0.00-0.02) K/uL Lymph # (Auto) (1.2-3.4) K/uL PT (9.0-12.0) Seconds INR (0.9-1.1) APTT (21.0-31.0) Seconds Sodium 134 L (136-145) mmol/L BUN 26 H (7-18) mg/dl Creatinine 2.45 H (0.6-1.4) mg/dl Glucose 111 H (70-99) mg/dl POC Glucose 105 H (70-99) Hemoglobin A1c 6.4 H (4.5-5.6) % Protein/Creatinin Ratio (0-0.2)
[2018-12-08] MEDS: METOPROLOL SUCC 25MG EXT REL TAB PO SCH ×2 (09:20→20:11)
[2018-12-08] MEDS: AMLODIPINE BESYLATE 5 MG TAB PO SCH (09:20)
--- NOTE | 2018-12-08 12:46 | Cardiology Progress Note ---
Date of Service December 08, 2018 Assessment & Plan (1) Paroxysmal atrial fibrillation with rapid ventricular response: Patient has had reversion to A. fib flutter with transient aberrant conduction. Telemetry demonstrates better rate control however had pause this morning. Plan discontinue amiodarone, titrate beta-ankita up as rates tolerate. Discussed potential tachybradycardia syndrome and indications for pacemaker if such. Continue anticoagulation as ordered (2) Wide-complex tachycardia: Atrial fibrillation with rapid response with rate related left bundle branch block/aberrant conduction (3) Cardiomyopathy: Mild LV systolic dysfunction noted on resting 2D transthoracic echocardiogram. Echocardiogram this morning demonstrates improved LV systolic function Remain concerned regarding chemotherapy medications given acute presentation and transient decline in LV function now improved (4) HECTOR (acute kidney injury): Responding to IV diuretic (5) Fever: (6) Elevated troponin: (7) Metastatic malignant melanoma: No cardiac mass noted. Question chemotherapy medications contributed to presentation. Will need to discuss options for management (8) Adrenal insufficiency: Subjective No complaints, feels well. Not aware of irregular heart rate or tachypalpitations. No chest pain or worsening shortness of breath. Has manifested diuresis. Notes no fevers or chills. No bleeding difficulties. He remains in atrial fibrillation on telemetry with 1 3.8 seconds pause this morning Review of Systems Review of Systems: As per HPI Physical Exam Constitutional: WD/WN, vitals as above + obese ENMT: external ear and nose normal, oropharynx normal Neck: trachea midline, no thyromegaly Cardiovascular: Rate/Rhythm: + irregularly irregular Heart Sounds: normal S1 and normal S2; no gallop and no murmur Vessels: no JVD Extremities: + edema (1 + bilateral lower extremity, improved) Gastrointestinal (Abdomen): normal bowel sounds, soft, nontender, no hepatosplenomegaly Less abdominal distention Results & Data Vital Signs (Past 12 Hours) Vital Signs Temp Pulse Resp BP Pulse Ox 12/08/18 12:08 37.2 C 69 18 124/74 97 12/08/18 06:56 36.8 C 83 19 136/75 95 12/08/18 04:42 37.0 C 62 19 119/81 98 (1) Fever Fever type: unspecified Qualified Code(s): R50.9 - Fever, unspecified
[2018-12-08 14:38] LABS: Partial Thromboplastin Ratio 2.6
[2018-12-08] MEDS: PRAMIPEXOLE DIHYDROCHLO 0.5 MG TAB PO SCH ×2 (15:27→20:12)
[2018-12-08] MEDS: WARFARIN SOD 7.5 MG TAB PO SCH (15:28)
--- NOTE | 2018-12-08 17:29 | Hospitalist Progress Note ---
Date of Service December 08, 2018 Assessment & Plan (1) Wide-complex tachycardia: Present on admission with Afib with RVR with HR in the 140 He was started with intravenous amiodarone and heparin Cardiology on board ECHO Showed much improvement of EF. Ventricle is normal in size, borderline co ncentric LVH, no wall motion abnormalities, EF 50 to 55% from 40% on admission. 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 Did not tolerate initial chemo at the time and noted to have right abdomen metastasis He is a status post appendectomy and on replacement dose of hydrocortisone Currently he has been taking Tafinlar 150 mg twice daily and Mekinist 2 mg daily Previous hospitalist discussed case with oncologist and was recommended to hold it for now (3) HECTOR (acute kidney injury): Creatinine on admission 2.87 Received IVF Nephrology on board Creatinine slowly trending down to 2.5 today t Will avoid nephrotoxic agents Monitor BMP (4) Hypertension: BP improved Continue amlodipine and lopressor Monitor BP (5) Sleep apnea: Uses CPAP at home (6) Adrenal insufficiency: Received stress dose of hydrocortisone in the ER Continue hydrocortisone QID (7) Acute hyponatremia: Sodium level was noted to be 130 on admission Na improved to 134 today Monitor BMP (8) Cardiomyopathy: His EF has been reduced since September from 54% to 40% as of today May be secondary to chemotherapeutic agent We are holding chemotherapeutic medicines now Repeat echo showed improvement of EF Stable (9) Febrile neutropenia: Possible Febrile Illness has been afebrile for about 48hr Patient is immunosuppressed Urine cx positive for enterococcus faecalis Blood cx no growth Received intravenous Vanco and Zosyn that was transition to oral amoxicillin to complete 10 days course Clinically improves (10) Diabetes type 2, uncontrolled: Has not been on any medication Hemoglobin A1c 6.4 Continue SSI Continue monitor BS CODE STATUS FULL CODE DVT Px on heparin drip/coumadin Subjective Pt was seen and examined Sitting in chair with no distress Pt said that he feels much better Pt said that he had therapy today and did good He had a pause this morning on tele monitor Denies any chest pain. palpitation, dizziness and SOB Physical Exam Physical Exam: General- No acute distress Head- atraumatic Eyes- PERRL, EOMI, ENT- oropharynx clear Neck- supple, no JVD Lungs-Poor air entry Heart- irregular rhythm Abdomen- normal bowel sounds, soft, nontender Extremities- no calf tenderness, +edema Neuro- alert, oriented x 3; PERRL, EOMI; no facial palsy; no dysarthria Skin- warm & dry Results & Data Vital Signs (Past 12 Hours) Vital Signs Temp Pulse Pulse Resp BP Pulse Ox 12/08/18 15:28 36.4 C L 88 18 108/68 96 12/08/18 15:21 69 12/08/18 12:08 37.2 C 69 18 124/74 97 12/08/18 06:56 36.8 C 83 19 136/75 95
[2018-12-08 21:19] LABS: Partial Thromboplastin Ratio 2.3
[2018-12-08 21:22] LABS: Partial Thromboplastin Time 61.8 Seconds (21.0-31.0)
[2018-12-08] MEDS: Heparin Adult STANDARD Wt-Based Dextrose 5% 25,000 units/500 mL IV SCH (22:08)
[2018-12-09] MEDS: HYDROCORTISONE 10 MG TAB PO SCH ×3 (05:21→15:25)
[2018-12-09 07:39] LABS: INR 2.4 (0.9-1.1); Partial Thromboplastin Ratio 2.5; Prothrombin Time 23.3 Seconds (9.0-12.0)
--- NOTE | 2018-12-09 07:49 | Nephrology Progress Note ---
Date of Service December 09, 2018 Assessment & Plan (1) HECTOR (acute kidney injury): very gradually improving; started 12/07 on lasix iv 40 mg daily >> will monitor; creat today 2.5, on slow down trend bland urine sediment w/ 300 mg proteinuria >> reassuring; no further intervention -daily bmp standing wts > 134.7 on 12/06, 135.1 on 12/07 (2) Stage 3 chronic kidney disease: baseline creatinine 1.8-2.0 w/ hx of TURBT 2018 fall; granular casts and blood/ protein in urine on presentation; may be challenging to interpret w/ urology hx; unable to access epic remotely today >> asked for [facility] [place] [place] 09/2018 d/c summary to be scanned; likely to need ckd clinic f/u -bmp q am -low threshold for renal u/s if worsening function but defer for now as he is clinically improving (albeit slowly) and d/t pt preference to avoid u/s. would avoid CT d/t cost/ radiation exposure -will need next available CKD clinic f/u in [facility] w/ me or [place] post d/c -- has had recurrent HECTOR in 2018 and many risk ff for ckd progression (3) Adrenal insufficiency: may affect sNa levels though these have been 130 or better; stable sNa at 135; on tid hydrocortisone currently >bmp daily (4) Metastatic malignant melanoma: per primary service; oncology following peripherally Subjective no interval events; states he feels / breathes/ moves better than he has in a long time, certainly better than before coming in Review of Systems Review of Systems: All systems reviewed & are unremarkable except as noted in HPI & below Respiratory: no cough and no dyspnea Cardiovascular: + edema (minimal); no chest pain and no palpitations Gastrointestinal: no abdominal pain, no early satiety, no vomiting and no change in bowel habits Genitourinary: no dysuria and no difficulty urinating Integumentary: no rash and no non-healing lesions Physical Exam Constitutional: well developed, well nourished and + morbidly obese suitting up in chair on RA Eyes: EOM intact bilaterally ENMT: Ears: no external ear abnormality Nose: no external nose abnormality Mouth: + dry oral mucous membranes Neck: no nuchal rigidity Respiratory: normal respiratory effort Auscultation: + diminished lung sounds Cardiovascular: Rate/Rhythm: regular rate ((sic) <> HR last recorded at 45 but not on my exam) and + irregularly irregular Extremities: + edema (1+ ankle BL) Gastrointestinal (Abdomen): Inspection/Auscultation: + abdomen distended and normal bowel sounds (bordlerine hyperactive) Percussion/Palpation: abdomen soft; abdomen nontender and no ascites Musculoskeletal: Extremities: strength 5/5 throughout Skin: no rashes, warm and dry Psychiatric: A+Ox3, euthymic affect Eye Contact: good eye contact Speech: normal rate/rhythm/volume of speech Results & Data Vital Signs (Past 12 Hours) Vital Signs Temp Pulse Pulse Resp BP Pulse Ox 12/09/18 07:18 36.7 C 45 L 20 142/82 H 97 12/09/18 03:40 36.5 C 74 18 155/98 H 97 12/08/18 23:21 36.5 C 79 18 137/83 97 12/08/18 23:02 75 Laboratory Results Abnormal lab results 12/08/18 12/08/18 12/08/18 Range/Units 07:28 11:42 14:04 PT (9.0-12.0) Seconds INR (0.9-1.1) APTT 70.0 H* (21.0-31.0) Seconds Sodium (136-145) mmol/L BUN (7-18) mg/dl Creatinine (0.6-1.4) mg/dl Glucose (70-99) mg/dl POC Glucose 117 H (70-99) Hemoglobin A1c 6.4 H (4.5-5.6) % 12/08/18 12/08/18 12/08/18 Range/Units 16:06 20:09 20:47 PT (9.0-12.0) Seconds INR (0.9-1.1) APTT 61.8 H* (21.0-31.0) Seconds Sodium (136-145) mmol/L BUN (7-18) mg/dl Creatinine (0.6-1.4) mg/dl Glucose (70-99) mg/dl POC Glucose 109 H 136 H (70-99) Hemoglobin A1c (4.5-5.6) % 12/09/18 12/09/18 12/09/18 Range/Units 06:54 06:54 07:07 PT 23.3 H (9.0-12.0) Seconds INR 2.4 H (0.9-1.1) APTT 66.4 H* (21.0-31.0) Seconds Sodium 135 L (136-145) mmol/L BUN 27 H (7-18) mg/dl Creatinine 2.42 H (0.6-1.4) mg/dl Glucose 108 H (70-99) mg/dl POC Glucose 111 H (70-99) Hemoglobin A1c (4.5-5.6) %
[2018-12-09 07:51] LABS: Partial Thromboplastin Time 66.4 Seconds (21.0-31.0)
[2018-12-09 07:57] LABS: Calcium 8.9 mg/dl (8.5-10.1); Creatinine Clr Calc Pharmacy 37.7 ml/min; Est GFR (Non-African American) 25.9; Potassium 4.4 mmol/L (3.5-5.1)
[2018-12-09] MEDS: INSULIN ASPART 100 UNITS/ML 3 ML PEN SC SCH ×4 (08:08→20:48)
[2018-12-09] MEDS: FUROSEMIDE 40 MG in SYRINGE 0 ML IV SCH (08:09)
[2018-12-09] MEDS: CHOLECALCIFEROL 1,000 UNITS TAB PO SCH (08:10)
[2018-12-09] MEDS: AMLODIPINE BESYLATE 5 MG TAB PO SCH (08:11)
[2018-12-09] MEDS: ASPIRIN 81 MG ECTAB PO SCH (08:11)
[2018-12-09] MEDS: AMOXICILLIN 500 MG CAP PO SCH ×3 (08:12→20:16)
[2018-12-09] MEDS: METOPROLOL SUCC 25MG EXT REL TAB PO SCH ×2 (08:12→20:17)
[2018-12-09] MEDS: DOCUSATE SODIUM 100 MG CAP PO SCH ×2 (08:16→20:17)
[2018-12-09] MEDS: PRAMIPEXOLE DIHYDROCHLO 0.5 MG TAB PO SCH ×2 (15:25→20:17)
[2018-12-09] MEDS: WARFARIN SOD 7.5 MG TAB PO SCH (15:25)
--- NOTE | 2018-12-09 16:32 | Cardiology Progress Note ---
Date of Service December 09, 2018 Assessment & Plan (1) Paroxysmal atrial fibrillation with rapid ventricular response: Patient has had reversion to A. fib flutter with transient aberrant conduction. Telemetry demonstrates better rate control however had pause this morning. Plan discontinue amiodarone, titrate beta-ankita up as rates tolerate. Discussed potential tachybradycardia syndrome and indications for pacemaker if such. Continue anticoagulation as ordered No further bradycardia arrhythmias anticoagulation approaching therapeutic. Plan increase Toprol to 25 mill grams twice per day, no further amiodarone. Discontinue IV heparin (2) Wide-complex tachycardia: Atrial fibrillation with rapid response with rate related left bundle branch block/aberrant conduction (3) Cardiomyopathy: Mild LV systolic dysfunction noted on resting 2D transthoracic echocardiogram. Echocardiogram this morning demonstrates improved LV systolic function Remain concerned regarding chemotherapy medications given acute presentation and transient decline in LV function now improved (4) HECTOR (acute kidney injury): Responding to IV diuretic appreciate nephrology input (5) Fever: (6) Elevated troponin: (7) Metastatic malignant melanoma: No cardiac mass noted. Question chemotherapy medications contributed to presentation. Will need to discuss options for management (8) Adrenal insufficiency: Subjective Patient seen and examined, chart medications, telemetry reviewed. Patient r emains in atrial flutter with controlled ventricular response rate no further bradycardia arrhythmias. Notes no chest pain or discomfort notes no dizziness or lightness overall feels improved continues to gradually diurese with stable renal function so far Nurse does mention occasional black stool no change in hemoglobin. Review of Systems Review of Systems: As per HPI Physical Exam Constitutional: WD/WN, vitals as above + obese ENMT: external ear and nose normal, oropharynx normal Neck: trachea midline, no thyromegaly Cardiovascular: Rate/Rhythm: + irregularly irregular Heart Sounds: normal S1 and normal S2; no gallop and no murmur Vessels: no JVD Extremities: + edema (1 + bilateral lower extremity, improved) Gastrointestinal (Abdomen): normal bowel sounds, soft, nontender, no hepatosplenomegaly Less distended Results & Data Vital Signs (Past 12 Hours) Vital Signs Temp Pulse Pulse Resp BP Pulse Ox 12/09/18 16:00 105 H 12/09/18 15:22 36.4 C L 94 H 18 145/77 H 96 12/09/18 11:02 36.3 C L 69 20 125/81 97 12/09/18 08:00 90 12/09/18 07:18 36.7 C 45 L 20 142/82 H 97 Laboratory Results Laboratory Results - last 24 hr 12/08/18 12/08/18 12/09/18 20:09 20:47 06:54 PT 23.3 H INR 2.4 H APTT 61.8 H* 66.4 H* PTT Ratio 2.3 2.5 Sodium Potassium Chloride Carbon Dioxide Anion Gap BUN Creatinine Est Cr Clr Drug Dosing Est GFR ( Amer) Est GFR (Non-Af Amer) BUN/Creatinine Ratio Glucose POC Glucose 136 H Calcium 12/09/18 12/09/18 12/09/18 06:54 07:07 11:19 PT INR APTT PTT Ratio Sodium 135 L Potassium 4.4 Chloride 102 Carbon Dioxide 27 Anion Gap 7.0 BUN 27 H Creatinine 2.42 H Est Cr Clr Drug Dosing 37.7 Est GFR ( Amer) 30.0 Est GFR (Non-Af Amer) 25.9 BUN/Creatinine Ratio 11.0 Glucose 108 H POC Glucose 111 H 115 H Calcium 8.9 (1) Fever Fever type: unspecified Qualified Code(s): R50.9 - Fever, unspecified
--- NOTE | 2018-12-09 17:01 | Hospitalist Progress Note ---
Date of Service December 09, 2018 Assessment & Plan (1) Wide-complex tachycardia: Present on admission with Afib with RVR with HR in the 140 He was started with intravenous amiodarone and heparin Cardiology on board ECHO Showed much improvement of EF. Ventricle is normal in size, borderline co ncentric LVH, no wall motion abnormalities, EF 50 to 55% from 40% on admission. 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 Did not tolerate initial chemo at the time and noted to have right abdomen metastasis He is a status post appendectomy and on replacement dose of hydrocortisone Currently he has been taking Tafinlar 150 mg twice daily and Mekinist 2 mg daily Previous hospitalist discussed case with oncologist and was recommended to hold it for now (3) HECTOR (acute kidney injury): Creatinine on admission 2.87 Received IVF Nephrology on board Creatinine slowly trending down to 2.4 today Will avoid nephrotoxic agents Monitor BMP (4) Hypertension: BP has been fluctuated On amlodipine and lopressor Monitor BP (5) Sleep apnea: Uses CPAP at home (6) Adrenal insufficiency: Received stress dose of hydrocortisone in the ER Continue hydrocortisone TID (7) Acute hyponatremia: Sodium level was noted to be 130 on admission Na improved to 135 today Monitor BMP (8) Cardiomyopathy: His EF has been reduced since September from 54% to 40% as of today May be secondary to chemotherapeutic agent We are holding chemotherapeutic medicines now Repeat echo showed improvement of EF Stable (9) Febrile neutropenia: Possible Febrile Illness has been afebrile for about 48hr Patient is immunosuppressed Urine cx positive for enterococcus faecalis Blood cx no growth Received intravenous Vanco and Zosyn that was transition to oral amoxicillin to complete 10 days course Clinically improves (10) Dark stools: Pt said that he just had an episode of dark stool today Nurse was unable to confirm it since pt had already flushed it heparin drip discontinued today Already received coumadin 7.5mg today Will check FOBT Monitor CBC and PT/INR (11) Diabetes type 2, uncontrolled: Has not been on any medication Hemoglobin A1c 6.4 Continue SSI Continue monitor BS CODE STATUS FULL CODE DVT Px on heparin drip discontinued On coumadin Disposition Will discharge once medically stable Subjective Pt was seen and examined Lying in bed with no distress Pt said that he feels much better He said that he walked around the hallway with no problem today Denies ay chest pain, palpitation, dizziness and SOB Physical Exam Physical Exam: General- No acute distress Head- atraumatic Eyes- PERRL, EOMI, ENT- oropharynx clear Neck- supple, no JVD Lungs-Poor air entry Heart- irregular rhythm Abdomen- normal bowel sounds, soft, nontender Extremities- no calf tenderness, +edema Neuro- alert, oriented x 3; PERRL, EOMI; no facial palsy; no dysarthria Skin- warm & dry Results & Data Vital Signs (Past 12 Hours) Vital Signs Temp Pulse Pulse Resp BP Pulse Ox 12/09/18 16:00 105 H 12/09/18 15:22 36.4 C L 94 H 18 145/77 H 96 12/09/18 11:02 36.3 C L 69 20 125/81 97 12/09/18 08:00 90 12/09/18 07:18 36.7 C 45 L 20 142/82 H 97
[2018-12-10 03:29] VITALS: TEMP 97.5
[2018-12-10] MEDS: HYDROCORTISONE 10 MG TAB PO SCH ×4 (06:03→16:06)
[2018-12-10 07:00] LABS: INR 3.5 (0.9-1.1); Partial Thromboplastin Ratio 1.7; Prothrombin Time 32.9 Seconds (9.0-12.0)
[2018-12-10 07:01] LABS: Partial Thromboplastin Time 46.2 Seconds (21.0-31.0)
[2018-12-10 07:06] LABS: Calcium 8.3 mg/dl (8.5-10.1); Creatinine Clr Calc Pharmacy 34.9 ml/min; Est GFR (African American) 27.4; Est GFR (Non-African American) 23.6
[2018-12-10 07:13] LABS: Hematocrit (blood only) 37.2 % (42-52); Hemoglobin 12.4 g/dL (14.0-18.0); Mean Corpuscular Hgb Conc 33.3 g/dL (32-36); Mean Corpuscular Volume 82.9 fL (80-100); Mean Platelet Volume 9.7 fL (7.4-10.4); Platelet Count 236 K/uL (130-400); RDW Coefficient of Variation 15.1 % (11.5-14.5); RDW Standard Deviation 45.7 fL (36.4-46.3); Red Blood Count 4.49 M/uL (4.7-6.1); White Blood Count 3.84 K/uL (4.8-10.8)
[2018-12-10] MEDS: AMOXICILLIN 500 MG CAP PO SCH ×2 (07:22→15:20)
[2018-12-10] MEDS: PRAMIPEXOLE DIHYDROCHLO 0.5 MG TAB PO SCH (07:22)
[2018-12-10] MEDS: ASPIRIN 81 MG ECTAB PO SCH (07:23)
[2018-12-10] MEDS: AMLODIPINE BESYLATE 5 MG TAB PO SCH (07:24)
[2018-12-10] MEDS: DOCUSATE SODIUM 100 MG CAP PO SCH (07:24)
[2018-12-10] MEDS: METOPROLOL SUCC 25MG EXT REL TAB PO SCH (07:24)
--- NOTE | 2018-12-10 07:49 | Nephrology Progress Note ---
Date of Service December 10, 2018 Assessment & Plan (1) HECTOR (acute kidney injury): very gradually improving at first then plateau'd past 72 hrs mid 2's; started 12/07 on lasix iv 40 mg daily >> >>>>>stopped IV lasix; started low dose torsemide 5 mg daily ->>>>>recommend d/c on torsemide 5 mg daily if cardiology agrees and titrate dose as indicated as OP; pt was on no diuretics prior to admission >>>>>>pt should do daily standing wt log at d/c; recommend 1.8L FR at d/c; recommend <2 gm daily Na diet; recommend weekly bmp x 4 wks and f/u in CKD clinic [facility] in 4-6 wks any provider <<>> has had recurrent HECTOR in 2018 and many risk ff for ckd progression bland urine sediment w/ 300 mg proteinuria >> reassuring; no further intervention -daily bmp standing wts > 134.7 on 12/06, 135.1 on 12/07 but now down trending (2) Stage 3 chronic kidney disease: baseline creatinine 1.8-2.0 w/ hx of TURBT 2018 fall; granular casts and blood/ protein in urine on presentation; may be challenging to interpret w/ urology hx; unable to access epic remotely today >> asked for [facility] [place] 09/2018 d/c summary to be scanned; -bmp q am - slight worsenign today -low threshold for renal u/s if worsening function but defer for now as he is clinically improving (albeit slowly) and d/t pt preference to avoid u/s. would avoid CT d/t cost/ radiation exposure (3) Adrenal insufficiency: may affect sNa levels though these have been 130 or better; stable sNa at 133; on tid hydrocortisone currently >>need to find out who doses this as OP and ensure f/u >> pt is S/P BILATERAL adrenalectomy as of 09/2018 and may need ?endocrine?urology ? oncology f/u to dose >bmp daily (4) Metastatic malignant melanoma: per primary service; oncology following peripherally; not on chemo currently Subjective improved systolic function on TTE yesterday am; creat plateau'd; wt trending down 2.5 Kg past 48 hrs though I/O positive; sitting up in chair, no c/o; amb ulating in halls w/o marked sob Review of Systems Review of Systems: All systems reviewed & are unremarkable except as noted in HPI & below Respiratory: no cough and no dyspnea Cardiovascular: + edema; no chest pain, no dyspnea on exertion and no palpitations Gastrointestinal: + bloating; no abdominal pain Genitourinary: no dysuria and no difficulty urinating Physical Exam Constitutional: well developed, well nourished and + morbidly obese sitting up in chair on ra Eyes: EOM intact bilaterally ENMT: Ears: no external ear abnormality Nose: no external nose abnormality Mouth: + dry oral mucous membranes Neck: no nuchal rigidity Respiratory: normal respiratory effort Auscultation: + diminished lung sounds Cardiovascular: Rate/Rhythm: regular rate and + irregularly irregular Extremities: + edema (1-2+ ankle BL) Gastrointestinal (Abdomen): Inspection/Auscultation: + abdomen distended and normal bowel sounds (bordlerine hyperactive) Percussion/Palpation: abdomen soft; abdomen nontender and no ascites Musculoskeletal: Extremities: strength 5/5 throughout Skin: no rashes, warm and dry Neurologic: ambulatory and fluent speech Psychiatric: A+Ox3, euthymic affect Eye Contact: good eye contact Speech: normal rate/rhythm/volume of speech Results & Data Vital Signs (Past 12 Hours) Vital Signs Temp Pulse Resp BP BP Pulse Ox 12/10/18 06:55 36.4 C L 71 19 137/77 97 12/10/18 03:28 36.4 C L 71 18 143/82 H 95 12/09/18 23:48 36.6 C 69 18 140/72 95 12/09/18 19:55 36.4 C L 70 20 144/78 H 96 Laboratory Results Abnormal lab results 12/09/18 12/09/18 12/09/18 Range/Units 06:54 06:54 11:19 WBC (4.8-10.8) K/uL RBC (4.7-6.1) M/uL Hgb (14.0-18.0) g/dL Hct (42-52) % RDW Coeff of Scottie (11.5-14.5) % PT 23.3 H (9.0-12.0) Seconds INR 2.4 H (0.9-1.1) APTT 66.4 H* (21.0-31.0) Seconds Sodium 135 L (136-145) mmol/L BUN 27 H (7-18) mg/dl Creatinine 2.42 H (0.6-1.4) mg/dl Glucose 108 H (70-99) mg/dl POC Glucose 115 H (70-99) Calcium (8.5-10.1) mg/dl 12/09/18 12/09/18 12/10/18 Range/Units 16:35 20:51 06:14 WBC (4.8-10.8) K/uL RBC (4.7-6.1) M/uL Hgb (14.0-18.0) g/dL Hct (42-52) % RDW Coeff of Scottie (11.5-14.5) % PT 32.9 H (9.0-12.0) Seconds INR 3.5 H (0.9-1.1) APTT 46.2 H* (21.0-31.0) Seconds Sodium (136-145) mmol/L BUN (7-18) mg/dl Creatinine (0.6-1.4) mg/dl Glucose (70-99) mg/dl POC Glucose 113 H 119 H (70-99) Calcium (8.5-10.1) mg/dl 12/10/18 12/10/18 12/10/18 Range/Units 06:14 06:14 07:17 WBC 3.84 L (4.8-10.8) K/uL RBC 4.49 L (4.7-6.1) M/uL Hgb 12.4 L (14.0-18.0) g/dL Hct 37.2 L (42-52) % RDW Coeff of Scottie 15.1 H (11.5-14.5) % PT (9.0-12.0) Seconds INR (0.9-1.1) APTT (21.0-31.0) Seconds Sodium 133 L (136-145) mmol/L BUN 29 H (7-18) mg/dl Creatinine 2.61 H (0.6-1.4) mg/dl Glucose 101 H (70-99) mg/dl POC Glucose 100 H (70-99) Calcium 8.3 L (8.5-10.1) mg/dl
[2018-12-10] MEDS: INSULIN ASPART 100 UNITS/ML 3 ML PEN SC SCH ×2 (07:50→12:21)
[2018-12-10] MEDS: CHOLECALCIFEROL 1,000 UNITS TAB PO SCH (08:37)
[2018-12-10] MEDS ORDERED: TORSEMIDE 10 MG TAB PO SCH ×2 (09:00)
--- NOTE | 2018-12-10 10:37 | Cardiology Progress Note ---
Date of Service December 10, 2018 Assessment & Plan (1) Paroxysmal atrial fibrillation with rapid ventricular response: Patient has had reversion to A. fib flutter with transient aberrant conduction. Telemetry demonstrates better rate control however had pause this morning. Plan discontinue amiodarone, titrate beta-ankita up as rates tolerate. Discussed potential tachybradycardia syndrome and indications for pacemaker if such. Continue anticoagulation as ordered No further bradycardia arrhythmias anticoagulation approaching therapeutic. Plan increase Toprol to 25 mill grams twice per day, no further amiodarone. Discontinue IV heparin Patient anticoagulated with Coumadin Will need cardiology follow-up 2 to 3 weeks (2) Wide-complex tachycardia: Atrial fibrillation with rapid response with rate related left bundle branch block/aberrant conduction Rates controlled (3) Cardiomyopathy: Mild LV systolic dysfunction noted on resting 2D transthoracic echocardiogram. Echocardiogram this morning demonstrates improved LV systolic function Remain concerned regarding chemotherapy medications given acute presentation and transient decline in LV function now improved (4) HECTOR (acute kidney injury): Appreciate nephrology input IV diuretics switched to oral (5) Fever: (6) Elevated troponin: (7) Metastatic malignant melanoma: No cardiac mass noted. Question chemotherapy medications contributed to presentation. Will need to discuss options for management (8) Adrenal insufficiency: Subjective Patient seen and examined, chart medications telemetry reviewed. No complaints this morning. Notes no chest pain or discomfort. Telemetry did demonstrate brief acceleration in atrial arrhythmia last night while awake no symptoms. Has not been wearing CPAP in hospital. Physical Exam Constitutional: WD/WN, vitals as above + obese ENMT: external ear and nose normal, oropharynx normal Neck: trachea midline, no thyromegaly Cardiovascular: Rate/Rhythm: + irregularly irregular Heart Sounds: normal S1 and normal S2; no gallop and no murmur Vessels: no JVD Extremities: + edema (1 + bilateral lower extremity, improved) Gastrointestinal (Abdomen): normal bowel sounds, soft, nontender, no hepatosplenomegaly Results & Data Vital Signs (Past 12 Hours) Vital Signs Temp Pulse Pulse Resp BP BP Pulse Ox 12/10/18 08:00 69 12/10/18 06:55 36.4 C L 71 19 137/77 97 12/10/18 03:28 36.4 C L 71 18 143/82 H 95 12/09/18 23:48 36.6 C 69 18 140/72 95 Laboratory Results Laboratory Results - last 24 hr 12/09/18 12/09/18 12/09/18 11:19 16:35 20:51 WBC RBC Hgb Hct MCV MCH MCHC RDW Std Deviation RDW Coeff of Scottie Plt Count MPV PT INR APTT PTT Ratio Sodium Potassium Chloride Carbon Dioxide Anion Gap BUN Creatinine Est Cr Clr Drug Dosing Est GFR ( Amer) Est GFR (Non-Af Amer) BUN/Creatinine Ratio Glucose POC Glucose 115 H 113 H 119 H Calcium 12/10/18 12/10/18 12/10/18 06:14 06:14 06:14 WBC 3.84 L RBC 4.49 L Hgb 12.4 L Hct 37.2 L MCV 82.9 MCH 27.6 MCHC 33.3 RDW Std Deviation 45.7 RDW Coeff of Scottie 15.1 H Plt Count 236 D MPV 9.7 PT 32.9 H INR 3.5 H APTT 46.2 H* PTT Ratio 1.7 Sodium 133 L Potassium 4.0 Chloride 99 Carbon Dioxide 27 Anion Gap 7.0 BUN 29 H Creatinine 2.61 H Est Cr Clr Drug Dosing 34.9 Est GFR ( Amer) 27.4 Est GFR (Non-Af Amer) 23.6 BUN/Creatinine Ratio 11.0 Glucose 101 H POC Glucose Calcium 8.3 L 12/10/18 07:17 WBC RBC Hgb Hct MCV MCH MCHC RDW Std Deviation RDW Coeff of Scottie Plt Count MPV PT INR APTT PTT Ratio Sodium Potassium Chloride Carbon Dioxide Anion Gap BUN Creatinine Est Cr Clr Drug Dosing Est GFR ( Amer) Est GFR (Non-Af Amer) BUN/Creatinine Ratio Glucose POC Glucose 100 H Calcium (1) Fever Fever type: unspecified Qualified Code(s): R50.9 - Fever, unspecified
[2018-12-10 10:55] VITALS: O2SAT 96
[2018-12-10 15:49] VITALS: BP 136/72; PULSE 69
[2018-12-10] MEDS ORDERED: WARFARIN SOD 4 MG TAB PO SCH (16:00)
--- NOTE | 2018-12-10 16:59 | Hospitalist Progress Note ---
Date of Service December 10, 2018 Assessment & Plan (1) Paroxysmal atrial fibrillation with rapid ventricular response: (2) Wide-complex tachycardia: Present on admission with Afib with RVR with HR in the 140 He was started with intravenous amiodarone and heparin Cardiology on board ECHO Showed much improvement of EF. Ventricle is normal in size, borderline concentric LVH, no wall motion abnormalities, EF 50 to 55% from 40% on admission. 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 Did not tolerate initial chemo at the time and noted to have right abdomen metastasis He is a status post appendectomy and on replacement dose of hydrocortisone Currently he has been taking Tafinlar 150 mg twice daily and Mekinist 2 mg daily Previous hospitalist discussed case with oncologist and was recommended to hold it for now (4) HECTOR (acute kidney injury): Creatinine on admission 2.87 Received IVF Nephrology on board Creatinine slowly trending down to 2.6 today Starting on Torsemide 5 mg today Case discussed with nephrology and recommended to titrate torsemide as outpatient if needed Check BMP weekly Follow up with nephrology in 4 to 6 weeks Will avoid nephrotoxic agents (5) Hypertension: BP Stable On amlodipine and lopressor Monitor BP (6) Sleep apnea: Uses CPAP at home (7) Adrenal insufficiency: Received stress dose of hydrocortisone in the ER Continue hydrocortisone TID (8) Acute hyponatremia: Sodium level was noted to be 130 on admission Na improved to 133 today Monitor BMP (9) Cardiomyopathy: His EF has been reduced since September from 54% to 40% as of today May be secondary to chemotherapeutic agent We are holding chemotherapeutic medicines now Repeat echo showed improvement of EF IV diuretic was d/c Starting on torsemide 5 mg daily Fluid restriction to 1.8L daily Continue metoprolol 25mg BID Stable (10) Febrile neutropenia: Possible Febrile Illness has been afebrile for about 48hr Patient is immunosuppressed Urine cx positive for enterococcus faecalis Blood cx no growth Received intravenous Vanco and Zosyn that was transition to oral amoxicillin to complete 10 days course Clinically improves (11) Dark stools: Pt said that he just had an episode of dark stool today Nurse was unable to confirm it since pt had already flushed it heparin drip discontinued today Hgb increased to 12.4 today will discharge on coumadin 3 mg daily (12) Diabetes type 2, uncontrolled: Has not been on any medication Hemoglobin A1c 6.4 Continue SSI Continue monitor BS CODE STATUS FULL CODE DVT Px on heparin drip discontinued On coumadin with INR 3.5 today Disposition Discharge home today Subjective Pt was seen and examined Sitting in chair with no distress Pt said that he feels much better today He said that he feels good to go home Denies any chest pain, palpitation, dizziness and SOB Physical Exam Physical Exam: General- No acute distress Head- atraumatic Eyes- PERRL, EOMI, ENT- oropharynx clear Neck- supple, no JVD Lungs-Poor air entry Heart- irregular rhythm Abdomen- normal bowel sounds, soft, nontender Extremities- no calf tenderness, +edema Neuro- alert, oriented x 3; PERRL, EOMI; no facial palsy; no dysarthria Skin- warm & dry Results & Data Vital Signs (Past 12 Hours) Vital Signs Temp Pulse Pulse Pulse Resp BP BP 12/10/18 15:47 36.4 C L 69 22 136/72 12/10/18 15:22 36.4 C L 57 L 72 18 128/72 137/77 12/10/18 10:54 36.4 C L 72 18 128/72 12/10/18 08:00 69 12/10/18 06:55 36.4 C L 71 19 137/77 Pulse Ox 12/10/18 15:47 96 12/10/18 15:22 96 12/10/18 10:54 96 12/10/18 08:00 12/10/18 06:55 97
--- NOTE | 2018-12-11 23:38 | Discharge Summary ---
Date of Service December 10, 2018 Admission HPI Per Admitting Provider He is a 73-year-old male with significant past medical history including metastatic melanoma on Tafinlar 150 mg twice daily and Mekinist 2 mg daily for the last 3 weeks or so, adrenal insufficiency, hyperparathyroidism, acute kidney failure, adrenal insufficiency, hypertension,, obstructive sleep apnea on CPAP and type 2 diabetes has been complaining of feeling of weakness and tiredness associated with chills and shortness of breath on exertion since Thursday last. He denies any chest pain and/or palpitation. He does not have any abdominal pain nausea and/or vomiting and denies any problem with urine and her bowel habit. He denies any headache and blurred vision and no numbness and tingling involving any of the extremities. He generally weak but does not have any focal weakness or neuro deficit. In the ER he was noted to have atrial fibrillation/ventricular tachycardia with RVR and also noted to have acute on chronic kidney failure. He had any stat echo that did show decreasing EF to 40% from 50% which was in September of this year. He was evaluated by maintenance scheduler and was started with intravenous amiodarone and heparin and was admitted to telemetry unit for continued care. He has history of atrial fibrillation noted in epic since September of this year and an echo was done in September showed EF of 50 to 54% without other significant abnormalities. He has been getting Tafinlar and Mekinist for his metastatic melanoma. The case was discussed with client analyst and was holding these medications for now. Admission Exam Per Admitting Provider Physical Exam: Very anxious Constitutional: well developed, + acute distress (Minimal shortness of breath at rest but the patient denies) and + ill appearing Eyes: PERRL, conjunctivae normal, anicteric sclerae ENMT: external ear and nose normal, oropharynx normal Neck: trachea midline, no thyromegaly Respiratory: + respiratory distress and + cough Cardiovascular: + abnormal rate and + abnormal rhythm Heart Sounds: no murmur Gastrointestinal normal bowel sounds, soft, nontender, no hepatosplenomegaly Musculoskeletal: No acute arthritis Neurologic: patellar DTR's 2+ bilat, sensation intact Psychiatric: A+Ox3, euthymic affect Lymphatic: no cervical or axillary lymphadenopathy Principal Diagnosis Wide-complex tachycardia: HECTOR Acute hyponatremia Febrile neutropenia Paroxysmal atrial fibrillation with rapid ventricular response Cardiomyopathy Discharge Exam General- No acute distress Head- atraumatic Eyes- PERRL, EOMI, ENT- oropharynx clear Neck- supple, no JVD Lungs-Poor air entry Heart- irregular rhythm Abdomen- normal bowel sounds, soft, nontender Extremities- no calf tenderness, +edema Neuro- alert, oriented x 3; PERRL, EOMI; no facial palsy; no dysarthria Skin- warm & dry Discharge Data Allergies Allergy/AdvReac Type Severity Reaction Status Date / Time perflutren Allergy Intermediate GI SYMPTOMS Verified 12/03/18 15:15 propylene glycol Allergy Intermediate GI SYMPTOMS Verified 12/03/18 15:15 simvastatin Allergy Unknown JOINT AND Verified 12/03/18 15:15 MUSCLE PAIN Consultations 12/03/18 17:40 ED Decision to Admit Stat 12/03/18 17:54 Consult Cardiology Routine 12/07/18 10:06 Consult Nephrology Routine 12/07/18 21:34 Consult Health Information Management Stat Ordered Studies XR chest 1V portable CLINICAL HISTORY: sob, cough, r/o infection COMPARISON STUDY: Chest radiograph May 22, 2017. PET/CT August 04, 2018. FINDINGS: Right axillary surgical clips are incidentally noted. Cardiomediastinal silhouette is stable. There is no pneumothorax or pleural effusion. There is no consolidation to suggest pneumonia. Pulmonary vascularity is normal. IMPRESSION: No acute cardiopulmonary findings. Electronically signed by: Cuong Rose M.D. 12/03/2018 5:09 PM Dictated: 12/03/18 1700 Transcribed: 12/03/18 1700 Hospital Course (1) Paroxysmal atrial fibrillation with rapid ventricular response: (2) Wide-complex tachycardia: Present on admission with Afib with RVR with HR in the 140 He was started with intravenous amiodarone and heparin Cardiology on board ECHO Showed much improvement of EF. Ventricle is normal in size, borderline concentric LVH, no wall motion abnormalities, EF 50 to 55% from 40% on admission. 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 Did not tolerate initial chemo at the time and noted to have right abdomen metastasis He is a status post appendectomy and on replacement dose of hydrocortisone Currently he has been taking Tafinlar 150 mg twice daily and Mekinist 2 mg daily Previous hospitalist discussed case with oncologist and was recommended to hold it for now (4) HECTOR (acute kidney injury): Creatinine on admission 2.87 Received IVF Nephrology on board Creatinine slowly trending down to 2.6 today Starting on Torsemide 5 mg today Case discussed with nephrology and recommended to titrate torsemide as outpatient if needed Check BMP weekly Follow up with nephrology in 4 to 6 weeks Will avoid nephrotoxic agents (5) Hypertension: BP Stable On amlodipine and lopressor Monitor BP (6) Sleep apnea: Uses CPAP at home (7) Adrenal insufficiency: Received stress dose of hydrocortisone in the ER Continue hydrocortisone TID (8) Acute hyponatremia: Sodium level was noted to be 130 on admission Na improved to 133 today Monitor BMP (9) Cardiomyopathy: His EF has been reduced since September from 54% to 40% as of today May be secondary to chemotherapeutic agent We are holding chemotherapeutic medicines now Repeat echo showed improvement of EF IV diuretic was d/c Starting on torsemide 5 mg daily Fluid restriction to 1.8L daily Continue metoprolol 25mg BID Stable (10) Febrile neutropenia: Possible Febrile Illness has been afebrile for about 48hr Patient is immunosuppressed Urine cx positive for enterococcus faecalis Blood cx no growth Received intravenous Vanco and Zosyn that was transition to oral amoxicillin to complete 10 days course Clinically improves (11) Dark stools: Pt said that he just had an episode of dark stool today Nurse was unable to confirm it since pt had already flushed it heparin drip discontinued today Hgb increased to 12.4 today will discharge on coumadin 3 mg daily (12) Diabetes type 2, uncontrolled: Has not been on any medication Hemoglobin A1c 6.4 Continue SSI Continue monitor BS CODE STATUS FULL CODE DVT Px on heparin drip discontinued On coumadin with INR 3.5 today Disposition Discharge home today Total Time Total Time Spent Total Time Spent (In Minutes): 35 minutes Total Time Includes: Examination of the Patient, Discharge Planning, Medication Reconciliation, Communication With Other Providers and Other Discharge Plan Discharge Items Patient Disposition: Home - Self-Care Reason For Visit: ATRIAL FIBRILLATION WITH RAPID VENTRICULAR RESPONS Discharge Diagnosis: Wide-complex tachycardia: HECTOR Acute hyponatremia Febrile neutropenia Paroxysmal atrial fibrillation with rapid ventricular response Cardiomyopathy Discharge Goals: Decrease discomfort, Improve disease control, Improve function and Increase independence Activity: Resume your previous activity Activity Comment: as tolerated Non-emergency contact: Primary Care Provider, [employer] Call non-emergency contact if: you have any medication questions Follow-up/Referrals: Prasad Mcguire, [Primary Care Provider] - Diet: Heart Healthy Addtl Provider Instructions: Follow up with your primary care provider with Dr. Mcguire on 12/14 @ 12:55 PM Follow up with nephrology Dr. Cuevas on 01/10 @ 11:20 AM at the [facility] Follow up with cardiology in 2 to 3 weeks (Cardiology office will call for the appointment) Follow up with your denture contour wire specialist Follow up with the coumadin clinic Check PT/INR tomorrow Check BMP weekly x 4 to monitor creatinine and electrolytes Fluid restriction to 1.8L daily Follow a low salt diet Complete course of antibiotic Fall precaution avoid any high level activity due to risk of fall Monitor for any abnormal bleeding (Such as bleeding in stool and urine) Medication Instructions: Coumadin Warfarin is a medicine prescribed to prevent blood clots and stroke Warfarin will thin your blood and help prevent new clots Take your medications exactly as directed Never skip a dose. Never take a double dose. If you miss a dose, take it as soon as you remember It is important for your doctor to monitor your prothrombin time (PT). This is a lab test Keep your appointment for lab tests Risk of Adverse Drug Reactions and Interactions: Warfarin increases your risk of bleeding The food you eat and other medications you take can affect how Warfarin works in your body Ask your doctor about daily aspirin therapy It is very important to talk with your doctor about all of the other medicines, antibiotics, vitamins or herbal products that you are taking All of your medication must be approved by your doctor, including new medicines, as well as medicines you have taken before you started taking Warfarin Avoid NSAIDs (Motrin, Aleve, Naproxen, Ibuprofen, Advil, Meloxicam,..) due to risks of bleeding Diet: In order for Warfarin to work properly, it is important to keep your intake of Vitamin K as consistent as possible You should avoid any sudden change in Vitamin K intake Report any significant changes in your diet or weight to your doctor Call your Primary Care doctor if you experience any of the following: Swelling or Pain in your leg Sudden, continuous pain deep in a muscle Pain that worsens when you are active or when you stand still for a long time Chest Pain Sudden Shortness of Breath Rapid or pounding heart beat Fainting Dizziness Cough with blood or bloody sputum Sweating more than normal Bruises Heavy or uncontrolled bleeding Blood in your urine, stool or vomit Black or tarry stools Follow Up: It is important for you to keep your follow up appointments with your medical provider. Prescriptions: New amoxicillin 500 mg Capsule 500 mg PO TID 7 Days Qty: 21 RF: 0 torsemide 10 mg Tablet 5 mg PO QAM Qty: 30 RF: 0 metoprolol succinate 25 mg Tablet Extended Release 24 Hr 25 mg PO BID Qty: 60 RF: 0 warfarin [Coumadin] 3 mg tablet 3 mg PO DAILY Qty: 30 RF: 0 Continued pramipexole [Mirapex] 0.5 mg tablet 0.5 mg PO UD RF: 0 ondansetron HCl 4 mg tablet 4 mg PO Q8H PRN (Reason: Nausea And Vomiting) RF: 0 docusate sodium [Colace] 100 mg Capsule 100 mg PO BID RF: 0 hydrocortisone 10 mg Tablet 20 mg PO UD RF: 0 cholecalciferol (vitamin D3) [Vitamin D3] 1,000 unit Capsule 1,000 unit PO QAM RF: 0 amlodipine 5 mg Tablet 5 mg PO QAM RF: 0 lorazepam [Ativan] 1 mg tablet 1 mg PO BID PRN (Reason: anxiety) RF: 0 dabrafenib 75 mg Capsule 150 mg PO Q12 RF: 0 Mekinist 2 mg tablet 1 mg PO QAM RF: 0 Stand-Alone Forms: [facility]/Other Patient Handouts: Prediabetes, Diabetes Meal Planning Discharge Orders: Discharge Order (Routine); Ordered 12/10/18 Ordered By: Ulisses Torres Admission Data Admit Date/Time: 12/03/18 18:10 Attending Provider: Ulisses Torres Admit Provider: Edgar Bales Primary Care Provider: Prasad Mcguire Other Providers: Edgar Bales ; Stevie Saravia ; Laurent Mann ; [employer] ; Ugo Hall ; Claudio Kidd ; Mateo Cornelius ; Therese Durham ; Kae Dooley ; Ekta Rosa Service: Telemetry Other Interventions: Discharge Summary Assessment (RN) Last Done: 12/10/18 15:22 DC Date/Time DO NOT enter until pt leaves facility: 12/10/18 18:03
== END 2018-12-10 18:03 | disposition home or self-care (01) | DRG 309 ==
LOC: ED 13:01 → 2S 18:10 → SUATTDRO 18:10 → 2S 19:52
DX: Z88.8 Allergy status to other drugs, medicaments and biological substances; R19.5 Other fecal abnormalities; R79.89 Other specified abnormal findings of blood chemistry; E87.1 Hypo-osmolality and hyponatremia; Z68.41 Body mass index [BMI] 40.0-44.9, adult; E11.22 Type 2 diabetes mellitus with diabetic chronic kidney disease; C79.72 Secondary malignant neoplasm of left adrenal gland; I48.0 Paroxysmal atrial fibrillation; B95.2 Enterococcus as the cause of diseases classified elsewhere; D70.9 Neutropenia, unspecified; N18.3 Chronic kidney disease, stage 3 (moderate); I48.92 Unspecified atrial flutter; Z80.0 Family history of malignant neoplasm of digestive organs; N17.9 Acute kidney failure, unspecified; E66.01 Morbid (severe) obesity due to excess calories; C49.9 Malignant neoplasm of connective and soft tissue, unspecified; T45.1X5A Adverse effect of antineoplastic and immunosuppressive drugs, initial encounter; C79.89 Secondary malignant neoplasm of other specified sites; E89.6 Postprocedural adrenocortical (-medullary) hypofunction; G47.33 Obstructive sleep apnea (adult) (pediatric); I42.7 Cardiomyopathy due to drug and external agent; I44.7 Left bundle-branch block, unspecified; Z79.899 Other long term (current) drug therapy; N39.0 Urinary tract infection, site not specified; Z99.89 Dependence on other enabling machines and devices; I47.2 Ventricular tachycardia; Z80.3 Family history of malignant neoplasm of breast; I12.9 Hypertensive chronic kidney disease with stage 1 through stage 4 chronic kidney disease, or unspecified chronic kidney disease

== ENCOUNTER 2019-06-13 20:52 | Inpatient (IN) ==
[2019-06-13] MEDS ORDERED: SODIUM CHLORIDE 0.9% 1000ML 1,000 ML IV SCH (21:30)
[2019-06-13 21:36] LABS: Basophils # (auto) 0.01 K/uL (0-0.2); Basophils % (auto) 0.1 %; Eosinophils # (auto) 0.21 K/uL (0-0.5); Eosinophils % (auto) 2.6 %; Hematocrit (blood only) 43.2 % (42-52); Hemoglobin 14.2 g/dL (14.0-18.0); Immature Granulocytes # (auto) 0.02 K/uL (0.00-0.02); Immature Granulocytes % (auto) 0.2 %; Lymphocytes # (auto) 1.46 K/uL (1.2-3.4); Lymphocytes % (auto) 18.1 %; Mean Corpuscular Hgb Conc 32.9 g/dL (32-36); Mean Corpuscular Volume 85.2 fL (80-100); Mean Platelet Volume 9.5 fL (7.4-10.4); Monocytes # (auto) 0.57 K/uL (0.11-0.59); Monocytes % (auto) 7.1 %; Neutrophils % (auto) 71.9 %; Platelet Count 267 K/uL (130-400); RDW Coefficient of Variation 15.5 % (11.5-14.5); RDW Standard Deviation 47.7 fL (36.4-46.3); Red Blood Count 5.07 M/uL (4.7-6.1); White Blood Count 8.07 K/uL (4.8-10.8)
[2019-06-13 21:49] LABS: iSTAT Creatinine 2.9 mg/dl (0.6-1.3); iSTAT Hemoglobin 13.6 g/dl (14.0-18.0); iSTAT Ionized Calcium 1.14 mmol/l (1.12-1.32); iSTAT Potassium 4.3 mEq/L (3.3-5.0)
[2019-06-13 22:01] LABS: Alanine Aminotransferase 60 U/L (12-78); Albumin Globulin Ratio 0.8 (0.9-2); Albumin Level 3.2 gm/dl (3.4-5.0); Alkaline Phosphatase 111 U/L (45-117); Aspartate Aminotransferase 40 U/L (15-37); BUN Creatinine Ratio 19.5 (10-20); Bilirubin,Total 0.4 mg/dl (0.2-1); Blood Urea Nitrogen 54 mg/dl (7-18); Calcium 9.1 mg/dl (8.5-10.1); Carbon Dioxide 23 mmol/L (21-32); Chloride 104 mmol/L (98-107); Est GFR (African American) 25.1; Est GFR (Non-African American) 21.7; Globulin 4.1 gm/dl (2.5-4.0); Magnesium 1.9 mg/dl (1.8-2.4); Potassium 4.3 mmol/L (3.5-5.1); Sodium 136 mmol/L (136-145); Total Protein 7.3 gm/dl (6.4-8.2); Troponin I < 0.015 ng/ml (0-0.045)
[2019-06-13 22:20] LABS: Partial Thromboplastin Ratio 1.9; Prothrombin Time 33.9 Seconds (9.0-12.0)
[2019-06-13] MEDS: METOPROLOL TARTRATE 1 MG/ML VIAL IV PRN ×3 (22:34→23:50)
[2019-06-13 22:36] LABS: Glucose 188 mg/dl (70-99)
[2019-06-13 22:39] LABS: Partial Thromboplastin Time 52.2 Seconds (21.0-31.0)
[2019-06-13] MEDS ORDERED: MAGNESIUM SULFATE / D5W 1 GM/100 ML BAG IV ONE (23:17)
[2019-06-13] MEDS ORDERED: DEXAMETHASONE SOD PHOSPHATE 4 MG in SYRINGE 0 ML IV STA (23:20)
[2019-06-13 23:28] LABS: INR 3.6 (0.9-1.1)
[2019-06-13] MEDS ORDERED: SODIUM CHLORIDE 0.9% 1000ML 1,000 ML IV ONE (23:29)
[2019-06-13] MEDS ORDERED: DEXAMETHASONE SOD INJ 4 MG/ML VIAL IV STA (23:53)
[2019-06-14] MEDS ORDERED: DIGOXIN 250 MCG in SYRINGE 9 ML IV STA (00:01)
[2019-06-14] MEDS ORDERED: dilTIAZem HCl 5 MG/ML 5 ML VIAL IV STA ×2 (00:06→02:00)
[2019-06-14 00:12] LABS: Appearance Urine Cloudy (Clear); Bilirubin Urine Negative (Negative); Blood Urine 3+ (Negative); Color Urine Red; Glucose Urine UA Negative (Negative); Ketones Urine Negative (Negative); Leukocyte Esterase Urine Negative (Negative); Nitrite Urine Negative (Negative); Protein Urine 2+ (Negative); Urobilinogen Urine Negative (Negative)
[2019-06-14 00:13] LABS: RBC Urine >30 /hpf (0-4); WBC Urine >30 /hpf (0-5)
--- NOTE | 2019-06-14 00:13 | History & Physical Report ---
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 status post recent surgery/radiation status post checkpoint inhibitor tx, disease seems to be progressing as of recent outpatient PET/CT DM 2, diet-controlled, well-controlled as of recent hemoglobin A1c of 6.17 September 2018 past tobacco abuse PCU Digoxin as needed for uncontrolled heart rate given hypotension Decadron 1 dose now for possible adrenal insufficiency; continue home hydrocortisone/fludrocortisone Rx IVF urine cultures, Zosyn CT abdomen pelvis RE hematuria, ARF on CRI hold home diuretics until creatinine at baseline, may need Nephrology consult if without improvement Basal insulin, ISS BG goal [id number], update hemoglobin A1c PT OT eval DVT prophylaxis. Coumadin INR goal between 2 and 3 Full code Total critical care time was 50 minutes. History of Present Illness Chief Complaint: Dark red urine, dizziness Primary Care Provider: Prasad Mcguire, DO History obtained from the patient and records. Medical history significant for cardiomyopathy as per records (EF 50 to 55%, TTE 2019), A. 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 fib with RVR. Recent cystourethroscopy with large bladder tumor fulguration at [facility] last month. Yesterday afternoon, patient noted lightheadedness symptoms. Heartbeat noted to be fast. Complaining of dysuria, dark red urine. With minimal back discomfort. No chest pain, no S OB. Some S OB. At the ER, patient noted to be in rapid A. fib. MEDICAL HISTORY: As above. PET/CT March 2019 Interval development of a metabolically active 1.5 cm lymph node between the pancreatic head, IVC and right renal hilum, suspicious for metastatic disease. Interval increase in size of exophytic bladder mass. Indeterminate focus of increased metabolic activity involving a small bowel loop , just caudad to the proximal transverse colon. Although this could represent physiologic uptake, metastatic disease is not excluded. Attention on follow-up PET/CT. Heterogeneous metabolic activity in the liver which could be physiologic or represent noise artifact. Limited evaluation for space-occupying lesion in the liver on the noncontrast CT portion of the exam. Attention on follow-up. SURGERIES: Adrenalectomy, skin cancer surgery, urologic procedures FAMILY HISTORY: Colon cancer, heart disease, stroke. PERSONAL AND SOCIAL HISTORY: Past tobacco abuse. Past alcohol abuse. 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 Allergies Allergy/AdvReac Type Severity Reaction Status Date / Time perflutren Allergy Intermediate GI SYMPTOMS Verified 06/13/19 21:59 propylene glycol Allergy Intermediate GI SYMPTOMS Verified 06/13/19 21:59 simvastatin Allergy Intermediate JOINT AND Verified 06/13/19 21:59 MUSCLE PAIN Home Medications Home Medications Medication Instructions Recorded Confirmed Type cholecalciferol (vitamin D3) 1,000 unit PO QAM 04/20/18 06/13/19 History [Vitamin D3] docusate sodium [Colace] 100 mg PO AMHS 04/20/18 06/13/19 History hydrocortisone 20 mg PO DIRECTED 04/20/18 06/13/19 History pramipexole 0.5 mg tablet 0.5 mg PO DIRECTED 06/01/18 06/13/19 History lorazepam 1 mg tablet 1 mg PO BID PRN tab 08/10/18 06/13/19 History ondansetron HCl 4 mg tablet 4 mg PO Q8H PRN tab 08/10/18 06/13/19 History torsemide 5 mg PO QAM #30 tab 12/10/18 06/13/19 Rx acetaminophen [Tylenol Extra 500 mg PO Q6H PRN 05/22/19 06/13/19 History Strength] calcitriol 0.25 mcg PO HS 05/22/19 06/13/19 History fludrocortisone 0.1 mg PO QAM 05/22/19 06/13/19 History hydrocortisone 10 mg PO PM 05/22/19 06/13/19 History methylprednisolone sodium succ 125 mg IM DIRECTED PRN 05/22/19 06/13/19 History metoprolol succinate 50 mg PO BID 05/22/19 06/13/19 History triamcinolone acetonide 1 applic TOPICAL BID PRN 05/22/19 06/13/19 History warfarin 4.5 mg PO 4XWK 05/22/19 06/13/19 History warfarin [Coumadin] 3 mg PO 3XWK 05/22/19 06/13/19 History Past Med/Surg History Medical History Adrenal insufficiency S/P LEFT ADRENALECTOMY- ON CHRONIC HYDROCORTISONE Anxiety (Chronic) 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- IMMUNOTHERAPY Q 2 WEEKS (on hold) Chronic back pain Degenerative disc disease Dyslipidemia (Chronic) H/O transfusion of packed red blood cells S/P 2 UNITS (2016) History of immunotherapy (Chronic) Keytruda x 2 Cycles (had to stop after 2nd cycle) Current Opdivo q 2 weeks (currently on hold) - started 05/2017 - 04/2018 Hypertension Morbid obesity Osteoarthritis Sleep apnea CPAP HS Stage 3 chronic kidney disease Surgical History History of colonoscopy 2016 History of esophagogastroduodenoscopy (EGD) 2016 History of tooth extraction Hx of 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 Mother Colon cancer, Onset Age: 85 Chemo and Resection - Alive and well now Sister Breast cancer, Onset Age: 55 Had Radiation - Alive and well now Sister No problems noted. Sister No problems noted. Sister No problems noted. Sister No problems noted. Brother No problems noted. Son No problems noted. Son No problems noted. Social History Preferred Language: [place] Communication Ability: Effective Visual Impairment: Limited Hearing Ability: Hard of Hearing Lace Pinner Required: No Beliefs That Will Affect Care: None marital status: Single Current Living Situation: Other current occupational status: retired current occupation: Retired - [employer] Other Information That Helps Us Care for You: No Feels Safe at Home: Yes Smoking Status: Never smoker Second Hand Exposure: No ; Hx Alcohol Use: No Hx Substance Use: No caffeine: Yes (2 cups of coffee/day ) during the past year weight has: remained stable Review of Systems Review of Systems: As per HPI, all 10 systems reviewed, all other ROS negative Physical Exam Physical Exam: GENERAL: Comfortable, slightly hard of hearing, morbidly obese, no respiratory distress SKIN: Pallor, warm HEENT: Bespectacled, pale palpebral conjunctivae, no ptosis, dry buccal mucosa NECK : Supple, short neck, no tenderness CHEST : CTA, no tenderness HEART : Tachycardic, irregular no obvious murmurs ABDOMEN: Some distention, no overt tenderness EXTREMITIES : Minimal bilateral LE swelling, no LE tenderness, no other conspicuous deformities noted NEUROLOGIC : Coherent, slightly hard of hearing, no facial asymmetry, no other gross focality Results & Data Vital Signs (Past 12 Hours) Vital Signs Temp Pulse Pulse Resp BP BP Pulse Ox 06/13/19 23:50 146 H 117/73 06/13/19 23:40 149 H 24 96 06/13/19 23:31 91 H 15 116/60 97 06/13/19 23:30 106 H 23 116/60 97 06/13/19 23:20 92 H 20 96 06/13/19 23:16 90 23 96 06/13/19 23:15 90 23 87/55 L 96 06/13/19 23:02 95 H 24 97 06/13/19 23:01 90 28 H 85/48 L 98 06/13/19 23:00 95 H 25 H 96 06/13/19 22:50 82 23 97 06/13/19 22:49 84 24 111/57 L 97 06/13/19 22:44 142 H 120/98 06/13/19 22:37 147 H 19 98 06/13/19 22:36 133 H 16 120/98 97 06/13/19 22:34 156 H 136/93 06/13/19 22:31 142 H 18 97 06/13/19 22:30 159 H 23 132/93 97 06/13/19 22:15 124 H 21 123/81 98 06/13/19 22:01 120 H 19 97 06/13/19 22:00 160 H 20 102/69 98 06/13/19 21:46 135 H 21 133/89 97 06/13/19 21:30 164 H 20 97 06/13/19 21:26 167 H 18 120/99 96 06/13/19 21:09 160 H 22 95 06/13/19 21:08 169 H 22 116/73 95 06/13/19 21:07 159 H 15 96 06/13/19 20:58 36.3 C L 169 H 18 108/78 96 06/13/19 19:30 156 H 16 162/85 H Laboratory Results Laboratory Results WBC 8.07 K/uL (4.8-10.8) 06/13/19 21:15 RBC 5.07 M/uL (4.7-6.1) 06/13/19 21:15 Hgb 14.2 g/dL (14.0-18.0) 06/13/19 21:15 POC Hgb 13.6 g/dl (14.0-18.0) L 06/13/19 21:36 Hct 43.2 % (42-52) 06/13/19 21:15 POC Hct 40 % (42-52) L 06/13/19 21:36 MCV 85.2 fL (80-100) 06/13/19 21:15 MCH 28.0 pg (25-34) 06/13/19 21:15 MCHC 32.9 g/dL (32-36) 06/13/19 21:15 RDW Std Deviation 47.7 fL (36.4-46.3) H 06/13/19 21:15 RDW Coeff of Scottie 15.5 % (11.5-14.5) H 06/13/19 21:15 Plt Count 267 K/uL (130-400) 06/13/19 21:15 MPV 9.5 fL (7.4-10.4) 06/13/19 21:15 Immature Gran % (Auto) 0.2 % 06/13/19 21:15 Neut % (Auto) 71.9 % 06/13/19 21:15 Lymph % (Auto) 18.1 % 06/13/19 21:15 Irwin % (Auto) 7.1 % 06/13/19 21:15 Eos % (Auto) 2.6 % 06/13/19 21:15 Baso % (Auto) 0.1 % 06/13/19 21:15 Immature Gran # (Auto) 0.02 K/uL (0.00-0.02) 06/13/19 21:15 Neut # (Auto) 5.80 K/uL (1.4-6.5) 06/13/19 21:15 Lymph # (Auto) 1.46 K/uL (1.2-3.4) 06/13/19 21:15 Irwin # (Auto) 0.57 K/uL (0.11-0.59) 06/13/19 21:15 Eos # (Auto) 0.21 K/uL (0-0.5) 06/13/19 21:15 Baso # (Auto) 0.01 K/uL (0-0.2) 06/13/19 21:15 PT 33.9 Seconds (9.0-12.0) H 06/13/19 21:15 INR 3.6 (0.9-1.1) H 06/13/19 21:15 APTT 52.2 Seconds (21.0-31.0) H* 06/13/19 21:15 PTT Ratio 1.9 06/13/19 21:15 POC Sodium 136 mEq/L (135-144) 06/13/19 21:36 Sodium 136 mmol/L (136-145) 06/13/19 21:15 POC Potassium 4.3 mEq/L (3.3-5.0) 06/13/19 21:36 Potassium 4.3 mmol/L (3.5-5.1) 06/13/19 21:15 POC Chloride 105 mEq/L (101-112) 06/13/19 21:36 Chloride 104 mmol/L (98-107) 06/13/19 21:15 Carbon Dioxide 23 mmol/L (21-32) 06/13/19 21:15 POC Total CO2 23 mEq/l (24-31) L 06/13/19 21:36 Anion Gap 9.0 (3-11) 06/13/19 21:15 POC Anion Gap 13.0 mmol/L (16-25) L 06/13/19 21:36 POC BUN 51 mg/dl (7-18) H 06/13/19 21:36 BUN 54 mg/dl (7-18) H 06/13/19 21:15 Creatinine 2.79 mg/dl (0.6-1.4) H 06/13/19 21:15 POC Creatinine 2.9 mg/dl (0.6-1.3) H 06/13/19 21:36 Est Cr Clr Drug Dosing Not Reportable 06/13/19 21:15 Est GFR ( Amer) 25.1 06/13/19 21:15 Est GFR (Non-Af Amer) 21.7 06/13/19 21:15 BUN/Creatinine Ratio 19.5 (10-20) 06/13/19 21:15 Glucose 188 mg/dl (70-99) H 06/13/19 21:15 POC Glucose (other) 195 mg/dl (70-99) H 06/13/19 21:36 Lactate 0.8 mmol/L (0.4-2.0) 06/13/19 23:28 Calcium 9.1 mg/dl (8.5-10.1) 06/13/19 21:15 POC Ioniz Calcium Martinez 1.14 mmol/l (1.12-1.32) 06/13/19 21:36 Magnesium 1.9 mg/dl (1.8-2.4) 06/13/19 21:15 Total Bilirubin 0.4 mg/dl (0.2-1) 06/13/19 21:15 AST 40 U/L (15-37) H 06/13/19 21:15 ALT 60 U/L (12-78) 06/13/19 21:15 Alkaline Phosphatase 111 U/L (45-117) 06/13/19 21:15 Troponin I < 0.015 ng/ml (0-0.045) 06/13/19 21:15 Total Protein 7.3 gm/dl (6.4-8.2) 06/13/19 21:15 Albumin 3.2 gm/dl (3.4-5.0) L 06/13/19 21:15 Globulin 4.1 gm/dl (2.5-4.0) H 06/13/19 21:15 Albumin/Globulin Ratio 0.8 (0.9-2) L 06/13/19 21:15 TSH 3.160 uIu/ml (0.300-4.500) 06/13/19 21:15 Urine Color Red 06/14/19 00:01 Urine Appearance Cloudy (Clear) A 06/14/19 00:01 Urine pH 6.0 (4.5-7.5) 06/14/19 00:01 Ur Specific [place] 1.020 (1.000-1.030) 06/14/19 00:01 Urine Protein 2+ (Negative) H 06/14/19 00:01 Urine Glucose (UA) Negative (Negative) 06/14/19 00:01 Urine Ketones Negative (Negative) 06/14/19 00:01 Urine Blood 3+ (Negative) H 06/14/19 00:01 Urine Nitrite Negative (Negative) 06/14/19 00: Urine Bilirubin Negative (Negative) 06/14/19 00: Urine Urobilinogen Negative (Negative) 06/14/19 00:01 Ur Leukocyte Esterase Negative (Negative) 06/14/19 00:01 Diagnostic Findings Chest x-ray as per my interpretation cardiomegaly EKG as per my interpretation : Rate 150, A. fib, normal axis, ST depression lateral leads Code Status & VTE Plan VTE Prophylaxis Plan VTE Prophylaxis will be ordered: Yes
[2019-06-14 00:14] LABS: Epithelial Cell Urine 20-30 /lpf (0-5)
[2019-06-14 00:15] LABS: Bacteria Urine 1+ (Negative)
--- NOTE | 2019-06-14 00:19 | Emergency Department Note ---
Entered by Geovanna Burnett acting as a scribe for Gunner Johnson MD History of Present Illness General Chief complaint: Urinary Symptoms Stated complaint: UTI, DARK URINE, SHAKEY Time Seen by Provider: 06/13/19 21:27 Source: patient History of Present Illness Onset (ago): hour(s) (5:00PM today ) Location: chest (Afib) and abdomen (urinary tract) Pain Consistency: + constant Associated symptoms: + shortness of breath and + other (dysuria, dark urine, lightheadedness ); no chest pain, no cough, no fever/chills and no attila sea/vomiting The patient is a 74 year old male with a history of Afib who presents to the Emergency Room with complaints of urinary symptoms and rapid heart rate. The patient states he began experiencing a rapid heart rate at 5:00PM today associated with lightheadedness and shortness of breath. He states that he takes medications to slow his heart rate and took them today. However, he is unsure if he receives a morning and evening dose since his caregiver administers his pills to him. Additionally he complains of UTI symptoms including dysuria and dark urine. Of note, he admits that he is staying hydrated. He also follows with Dr. Brothers, Cardiology. He denies nausea, vomiting, cough, fever, and chest pain. The patient offers no additional complaints at this time. Home Medications Home Medications Medication Instructions Recorded Confirmed Type cholecalciferol (vitamin D3) 1,000 unit PO QAM 04/20/18 06/13/19 History [Vitamin D3] docusate sodium [Colace] 100 mg PO AMHS 04/20/18 06/13/19 History hydrocortisone 20 mg PO DIRECTED 04/20/18 06/13/19 History pramipexole 0.5 mg tablet 0.5 mg PO DIRECTED 06/01/18 06/13/19 History lorazepam 1 mg tablet 1 mg PO BID PRN tab 08/10/18 06/13/19 History ondansetron HCl 4 mg tablet 4 mg PO Q8H PRN tab 08/10/18 06/13/19 History torsemide 5 mg PO QAM #30 tab 12/10/18 06/13/19 Rx acetaminophen [Tylenol Extra 500 mg PO Q6H PRN 05/22/19 06/13/19 History Strength] calcitriol 0.25 mcg PO HS 05/22/19 06/13/19 History fludrocortisone 0.1 mg PO QAM 05/22/19 06/13/19 History hydrocortisone 10 mg PO PM 05/22/19 06/13/19 History methylprednisolone sodium succ 125 mg IM DIRECTED PRN 05/22/19 06/13/19 History metoprolol succinate 50 mg PO BID 05/22/19 06/13/19 History triamcinolone acetonide 1 applic TOPICAL BID PRN 05/22/19 06/13/19 History warfarin 4.5 mg PO [id number] 05/22/19 06/13/19 History warfarin [Coumadin] 3 mg PO 3XWK 05/22/19 06/13/19 History Allergies Allergy/AdvReac Type Severity Reaction Status Date / Time perflutren Allergy Intermediate GI SYMPTOMS Verified 06/13/19 21:59 propylene glycol Allergy Intermediate GI SYMPTOMS Verified 06/13/19 21:59 simvastatin Allergy Intermediate JOINT AND Verified 06/13/19 21:59 MUSCLE PAIN Past Med/Surg History Medical History Adrenal insufficiency S/P LEFT ADRENALECTOMY- ON CHRONIC HYDROCORTISONE Anxiety (Chronic) 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- IMMUNOTHERAPY Q 2 WEEKS (on hold) Chronic back pain Degenerative disc disease Dyslipidemia (Chronic) H/O transfusion of packed red blood cells S/P 2 UNITS (2016) History of immunotherapy (Chronic) Keytruda x 2 Cycles (had to stop after 2nd cycle) Current Opdivo q 2 weeks (currently on hold) - started 05/2017 - 04/2018 Hypertension Morbid obesity Osteoarthritis Sleep apnea CPAP HS Stage 3 chronic kidney disease Surgical History History of colonoscopy 2017 History of esophagogastroduodenoscopy (EGD) 2017 History of tooth extraction Hx of 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 Mother Colon cancer, Onset Age: 85 Chemo and Resection - Alive and well now Sister Breast cancer, Onset Age: 55 Had Radiation - Alive and well now Sister No problems noted. Sister No problems noted. Sister No problems noted. Sister No problems noted. Brother No problems noted. Son No problems noted. Son No problems noted. Social History Preferred Language: Hebrew Communication Ability: Effective Visual Impairment: Limited Hearing Ability: Hard of Hearing [place] Required: No Beliefs That Will Affect Care: None marital status: Single Current Living Situation: Other current occupational status: retired current occupation: Retired - [employer] Other Information That Helps Us Care for You: No Feels Safe at Home: Yes Smoking Status: Never smoker Second Hand Exposure: No ; Hx Alcohol Use: No Hx Substance Use: No caffeine: Yes (2 cups of coffee/day ) during the past year weight has: remained stable Review of Systems See HPI for pertinent positives & negatives. and A total of 10 systems reviewed and were otherwise negative Physical Exam Vital Signs Vital Signs - 24 hr 06/13/19 19:30 06/13/19 20:58 06/13/19 21:07 Temperature 36.3 C L Temperature Source Oral Pulse Rate 156 H 169 H 159 H Pulse Rate [Right Finger] Pulse Rate from SpO2 Sensor Respiratory Rate 16 18 15 Respiratory Effort / Characteristics Non-Labored Spontaneous Respiratory Depth Normal Respiratory Pattern Regular Blood Pressure 162/85 H 108/78 Blood Pressure [Left Arm] Blood Pressure Mean 97 88 Blood Pressure Mean [Left Arm] Blood Pressure Position Sitting Pulse Oximetry 96 96 Oxygen Delivery Method Room Air Sepsis Recent Fever Within 48 Hours No Sepsis Action Taken by Nursing No Action Required 06/13/19 21:08 06/13/19 21:09 06/13/19 21:26 Temperature Temperature Source Pulse Rate 169 H 160 H 167 H Pulse Rate [Right Finger] Pulse Rate from SpO2 Sensor 160 H 167 H Respiratory Rate 22 22 18 Respiratory Effort / Characteristics Respiratory Depth Respiratory Pattern Blood Pressure 116/73 120/99 Blood Pressure [Left Arm] Blood Pressure Mean 92 103 Blood Pressure Mean [Left Arm] Blood Pressure Position Pulse Oximetry 95 95 96 Oxygen Delivery Method Sepsis Recent Fever Within 48 Hours Sepsis Action Taken by Nursing 06/13/19 21:30 06/13/19 21:46 06/13/19 22:00 Temperature Temperature Source Pulse Rate 164 H 135 H 160 H Pulse Rate [Right Finger] Pulse Rate from SpO2 Sensor 137 H 151 H 142 H Respiratory Rate 20 21 20 Respiratory Effort / Characteristics Respiratory Depth Respiratory Pattern Blood Pressure 133/89 102/69 Blood Pressure [Left Arm] Blood Pressure Mean 111 74 Blood Pressure Mean [Left Arm] Blood Pressure Position Pulse Oximetry 97 97 98 Oxygen Delivery Method Sepsis Recent Fever Within 48 Hours Sepsis Action Taken by Nursing 06/13/19 22:01 06/13/19 22:15 06/13/19 22:30 Temperature Temperature Source Pulse Rate 120 H 124 H 159 H Pulse Rate [Right Finger] Pulse Rate from SpO2 Sensor 143 H 129 H 146 H Respiratory Rate 19 21 23 Respiratory Effort / Characteristics Respiratory Depth Respiratory Pattern Blood Pressure 123/81 132/93 Blood Pressure [Left Arm] Blood Pressure Mean 95 98 Blood Pressure Mean [Left Arm] Blood Pressure Position Pulse Oximetry 97 98 97 Oxygen Delivery Method Sepsis Recent Fever Within 48 Hours Sepsis Action Taken by Nursing 06/13/19 22:31 06/13/19 22:34 06/13/19 22:36 Temperature Temperature Source Pulse Rate 142 H 156 H 133 H Pulse Rate [Right Finger] Pulse Rate from SpO2 Sensor 149 H 121 H Respiratory Rate 18 16 Respiratory Effort / Characteristics Respiratory Depth Respiratory Pattern Blood Pressure 136/93 120/98 Blood Pressure [Left Arm] Blood Pressure Mean 114 Blood Pressure Mean [Left Arm] Blood Pressure Position Pulse Oximetry 97 97 Oxygen Delivery Method Sepsis Recent Fever Within 48 Hours Sepsis Action Taken by Nursing 06/13/19 22:37 06/13/19 22:44 06/13/19 22:49 Temperature Temperature Source Pulse Rate 147 H 142 H 84 Pulse Rate [Right Finger] Pulse Rate from SpO2 Sensor 144 H 68 Respiratory Rate 19 24 Respiratory Effort / Characteristics Respiratory Depth Respiratory Pattern Blood Pressure 120/98 111/57 L Blood Pressure [Left Arm] Blood Pressure Mean 76 Blood Pressure Mean [Left Arm] Blood Pressure Position Pulse Oximetry 98 97 Oxygen Delivery Method Sepsis Recent Fever Within 48 Hours Sepsis Action Taken by Nursing 06/13/19 22:50 06/13/19 23:00 06/13/19 23:01 Temperature Temperature Source Pulse Rate 82 95 H 90 Pulse Rate [Right Finger] Pulse Rate from SpO2 Sensor 73 Respiratory Rate 23 25 H 28 H Respiratory Effort / Characteristics Respiratory Depth Respiratory Pattern Blood Pressure 85/48 L Blood Pressure [Left Arm] Blood Pressure Mean 69 Blood Pressure Mean [Left Arm] Blood Pressure Position Pulse Oximetry 97 96 98 Oxygen Delivery Method Sepsis Recent Fever Within 48 Hours Sepsis Action Taken by Nursing 06/13/19 23:02 06/13/19 23:15 06/13/19 23:16 Temperature Temperature Source Pulse Rate 95 H 90 90 Pulse Rate [Right Finger] Pulse Rate from SpO2 Sensor 90 Respiratory Rate 24 23 23 Respiratory Effort / Characteristics Respiratory Depth Respiratory Pattern Blood Pressure 87/55 L Blood Pressure [Left Arm] Blood Pressure Mean 70 Blood Pressure Mean [Left Arm] Blood Pressure Position Pulse Oximetry 97 96 96 Oxygen Delivery Method Sepsis Recent Fever Within 48 Hours Sepsis Action Taken by Nursing 06/13/19 23:20 06/13/19 23:30 06/13/19 23:31 Temperature Temperature Source Pulse Rate 92 H 106 H Pulse Rate [Right Finger] 91 H Pulse Rate from SpO2 Sensor 92 H 76 Respiratory Rate 20 23 15 Respiratory Effort / Characteristics Respiratory Depth Respiratory Pattern Blood Pressure 116/60 Blood Pressure [Left Arm] 116/60 Blood Pressure Mean 68 Blood Pressure Mean [Left Arm] 78 Blood Pressure Position Pulse Oximetry 96 97 97 Oxygen Delivery Method Sepsis Recent Fever Within 48 Hours Sepsis Action Taken by Nursing 06/13/19 23:40 06/13/19 23:45 06/13/19 23:50 Temperature Temperature Source Pulse Rate 149 H 139 H 134 H Pulse Rate [Right Finger] Pulse Rate from SpO2 Sensor 150 H 144 H 116 H Respiratory Rate 24 24 24 Respiratory Effort / Characteristics Respiratory Depth Respiratory Pattern Blood Pressure 117/73 117/73 Blood Pressure [Left Arm] Blood Pressure Mean 85 Blood Pressure Mean [Left Arm] Blood Pressure Position Pulse Oximetry 96 96 92 Oxygen Delivery Method Sepsis Recent Fever Within 48 Hours Sepsis Action Taken by Nursing 06/14/19 00:00 06/14/19 00:01 Temperature Temperature Source Pulse Rate 124 H 126 H Pulse Rate [Right Finger] Pulse Rate from SpO2 Sensor 130 H 135 H Respiratory Rate 22 23 Respiratory Effort / Characteristics Respiratory Depth Respiratory Pattern Blood Pressure 92/78 L Blood Pressure [Left Arm] Blood Pressure Mean 84 Blood Pressure Mean [Left Arm] Blood Pressure Position Pulse Oximetry 97 96 Oxygen Delivery Method Sepsis Recent Fever Within 48 Hours Sepsis Action Taken by Nursing GENERAL: Well appearing, well nourished, NAD, non-toxic. Wearing glasses. EYE EXAM: Normal conjunctiva. PERRL, no anisocoria and EOM's grossly intact w/o pain. OROPHARYNX: Moist mucus membranes. Grossly normal dentition. NECK: Supple, no nuchal rigidity, no adenopathy, non-tender. no signs of meningismus. LUNGS: Clear to auscultation. Normal chest wall mechanics. HEART: Tachycardic, irregular, no MRG. ABDOMEN: Abdomen soft, non-tender, normo-active bowel sounds, no masses, no rebound or guarding. BACK: No CVA TTP. SKIN: No rashes and no bruising. UPPER EXTREMITIES: Upper extremities are grossly normal. LOWER EXTREMITIES: Trace LE edema. No calf pain. NEURO EXAM: A&O x3, cranial nerves II-XII grossly intact, normal speech, moves all 4 extremities on command w/o issue. Course Course 2131: Past medical records reviewed. The patient was evaluated in room C04. A complete history and physical exam was performed. Patient was placed on bus driver/monitor. 2241: I reevaluated the patient and he states that he is feeling fine. 2253: I spoke to Dr. Mccall, [facility] who accepts the patient for admission. The patient verbally expressed understanding and agreement of the treatment plan. The patient will be evaluated for further treatment. Administered Medications Docusate Sodium (Colace) 100 mg PO [facility] Stop: 07/14/19 08:59 Last Admin: 06/14/19 08:00 Dose: 100 mg Documented by: [id number] Fludrocortisone Acetate (Florinef) 0.1 mg PO QAM [facility] Stop: 07/14/19 08:59 Last Admin: 06/14/19 08:00 Dose: 0.1 mg Documented by: [id number] Piperacillin Sod/Tazobactam (Sod 4.5 gm/ Dextrose) 120 mls @ 30 mls/hr IV Q8H [facility]; Protocol Stop: 06/24/19 05:59 Last Admin: 06/14/19 14:08 Dose: 30 mls/hr Documented by: [id number] Infusion: 06/14/19 10:00 Dose: 0 mls/hr Documented by: [id number] Admin: 06/14/19 05:52 Dose: 30 mls/hr Documented by: [id number] Insulin Aspart (Novolog Flexpen) 0 units SC [facility] Stop: 07/14/19 01:22 Last Admin: 06/14/19 12:23 Dose: 6 units Documented by: [id number] Cosigned by: [id number] Admin: 06/14/19 08:01 Dose: 6 units Documented by: [id number] Cosigned by: [id number] Admin: 06/14/19 02:28 Dose: 3 units Documented by: [id number] Cosigned by: [id number] Metoprolol Succinate (Toprol Xl) 50 mg PO BID@0530,1500 [facility] Stop: 07/14/19 08:59 Last Admin: 06/14/19 15:18 Dose: 50 mg Documented by: [id number] Discontinued Medications Phytonadione 2 mg/ Sucrose 2. 25 ml/ Microcrystalline Cellulose 2.25 ml/ BARCODE IDENTIFIER 1 ea 0 mg PO NOW STA Stop: 06/14/19 01:31 Last Admin: 06/14/19 02:25 Dose: 2 ml Documented by: [id number] Dexamethasone (Decadron) 4 mg IV NOW STA Stop: 06/13/19 23:54 Last Admin: 06/14/19 00:13 Dose: 4 mg Documented by: [id number] Diltiazem HCl (Cardizem) 10 mg IV NOW STA Stop: 06/14/19 00:07 Last Admin: 06/14/19 00:14 Dose: 10 mg Documented by: [id number] Cosigned by: [id number] Diltiazem HCl (Cardizem) 10 mg IV NOW STA Stop: 06/14/19 02:01 Last Admin: 06/14/19 02:15 Dose: 10 mg Documented by: [id number] Cosigned by: [id number] Sodium Chloride (Nss 1000ml) 1,000 mls @ 999 mls/hr IV .Q1H1M [facility] Stop: 06/13/19 22:30 Last Infusion: 06/13/19 22:26 Dose: 0 mls/hr Documented by: [id number] Admin: 06/13/19 21:32 Dose: 999 mls/hr Documented by: [id number] Magnesium Sulfate/Dextrose (Magnesium Sulfate / D5w) 1 gm in 100 mls @ 100 mls/hr IV ONE ONE Stop: 06/14/19 00:16 Last Infusion: 06/14/19 00:31 Dose: 0 mls/hr Documented by: [id number] Admin: 06/13/19 23:30 Dose: 100 mls/hr Documented by: [id number] Sodium Chloride (Nss 1000ml) 1,000 mls @ 999 mls/hr IV .Q1H1M ONE Stop: 06/14/19 00:29 Last Infusion: 06/14/19 00:31 Dose: 0 mls/hr Documented by: [id number] Admin: 06/14/19 00:06 Dose: 999 mls/hr Documented by: [id number] Digoxin 250 mcg/ Syringe 10 mls @ 2 mls/min IV NOW STA Stop: 06/14/19 00:05 Last Admin: 06/14/19 00:37 Dose: 2 mls/min Documented by: [id number] Piperacillin Sod/Tazobactam Sod (Zosyn) 4.5 gm in 120 mls @ 240 mls/hr IV NOW ONE Stop: 06/14/19 01:04 Last Infusion: 06/14/19 01:59 Dose: 0 mls/hr Documented by: [id number] Admin: 06/14/19 01:24 Dose: 240 mls/hr Documented by: [id number] Sodium Chloride (Nss 1000ml) 1,000 mls @ 100 mls/hr IV .Q10H STA Stop: 06/14/19 11:22 Last Infusion: 06/14/19 12:10 Dose: 0 mls/hr Documented by: [id number] Admin: 06/14/19 01:59 Dose: 100 mls/hr Documented by: [id number] Insulin Glargine (Lantus Solostar Pen) 10 units SC NOW STA Stop: 06/14/19 01:24 Last Admin: 06/14/19 02:27 Dose: 10 units Documented by: [id number] Cosigned by: [id number] Metoprolol Tartrate (Lopressor) 5 mg IV Q5M PRN PRN Reason: Tachycardia Stop: 07/13/19 22:23 Last Admin: 06/13/19 23:50 Dose: 2.5 mg Documented by: [id number] Admin: 06/13/19 22:44 Dose: 5 mg Documented by: [id number] Admin: 06/13/19 22:34 Dose: 5 mg Documented by: [id number] Critical Care Time Critical Care Time: Yes Total Critical Care Time: 52 I have personally spent 52 minutes of critical care time in the direct management of this patient. This includes bedside care, interpretation of diagnostic studies, and testing, discussion with consultants, patient, and family members, and other required patient management activities. This 52 minutes is in excess of all separately billable procedures. Medical Decision Making Differential Diagnosis Differential diagnosis includes but is not limited to Etiologies such as metabolic, infection, hypo/hyperglycemia, electrolyte abnormalities, cardiac sources, intracerebral event, toxicologic, neurologic, as well as others were entertained. Medical Records Attestation: I reviewed the patient's medical records. Home Medications Current Medication List: was personally reviewed by me Laboratory Data Attestation: I reviewed the patient's lab results. Result diagrams: 06/14/19 04:17 06/14/19 13:50 Lab Results 06/13/19 06/13/19 06/13/19 Range/Units 21:15 21:15 21:15 WBC 8.07 (4.8-10.8) K/uL RBC 5.07 (4.7-6.1) M/uL Hgb 14.2 (14.0-18.0) g/dL POC Hgb (14.0-18.0) g/dl Hct 43.2 (42-52) % POC Hct (42-52) % MCV 85.2 (80-100) fL MCH 28.0 (25-34) pg MCHC 32.9 (32-36) g/dL RDW Std Deviation 47.7 H (36.4-46.3) fL RDW Coeff of Scottie 15.5 H (11.5-14.5) % Plt Count 267 (130-400) K/uL MPV 9.5 (7.4-10.4) fL Immature Gran % (Auto) 0.2 % Neut % (Auto) 71.9 % Lymph % (Auto) 18.1 % [place] % (Auto) 7.1 % Eos % (Auto) 2.6 % Baso % (Auto) 0.1 % Immature Gran # (Auto) 0.02 (0.00-0.02) K/uL Neut # (Auto) 5.80 (1.4-6.5) K/uL Lymph # (Auto) 1.46 (1.2-3.4) K/uL [place] # (Auto) 0.57 (0.11-0.59) K/uL Eos # (Auto) 0.21 (0-0.5) K/uL Baso # (Auto) 0.01 (0-0.2) K/uL PT 33.9 H (9.0-12.0) Seconds INR 3.6 H (0.9-1.1) APTT 52.2 H* (21.0-31.0) Seconds PTT Ratio 1.9 POC Sodium (135-144) mEq/L Sodium 136 (136-145) mmol/L POC Potassium (3.3-5.0) mEq/L Potassium 4.3 (3.5-5.1) mmol/L POC Chloride (101-112) mEq/L Chloride 104 (98-107) mmol/L Carbon Dioxide 23 (21-32) mmol/L POC Total CO2 (24-31) mEq/l Anion Gap 9.0 (3-11) POC Anion Gap (16-25) mmol/L POC BUN (7-18) mg/dl BUN 54 H (7-18) mg/dl Creatinine 2.79 H (0.6-1.4) mg/dl POC Creatinine (0.6-1.3) mg/dl Est Cr Clr Drug Dosing Not Reportable Est GFR ( Amer) 25.1 Est GFR (Non-Af Amer) 21.7 BUN/Creatinine Ratio 19.5 (10-20) Glucose 188 H (70-99) mg/dl POC Glucose (other) (70-99) mg/dl Lactate (0.4-2.0) mmol/L Calcium 9.1 (8.5-10.1) mg/dl POC Ioniz Calcium Martinez (1.12-1.32) mmol/l Magnesium 1.9 (1.8-2.4) mg/dl Total Bilirubin 0.4 (0.2-1) mg/dl AST 40 H (15-37) U/L ALT 60 (12-78) U/L Alkaline Phosphatase 111 (45-117) U/L Troponin I < 0.015 (0-0.045) ng/ml Total Protein 7.3 (6.4-8.2) gm/dl Albumin 3.2 L (3.4-5.0) gm/dl Globulin 4.1 H (2.5-4.0) gm/dl Albumin/Globulin Ratio 0.8 L (0.9-2) TSH 3.160 (0.300-4.500) uIu/ml Urine Color Urine Appearance (Clear) Urine pH (4.5-7.5) Ur Specific [place] (1.000-1.030) Urine Protein (Negative) Urine Glucose (UA) (Negative) Urine Ketones (Negative) Urine Blood (Negative) Urine Nitrite (Negative) Urine Bilirubin (Negative) Urine Urobilinogen (Negative) Ur Leukocyte Esterase (Negative) Urine RBC (0-4) /hpf Urine WBC (0-5) /hpf Ur Epithelial Cells (0-5) /lpf Urine Bacteria (Negative) 06/13/19 06/13/19 06/14/19 Range/Units 21:36 23:28 00:01 WBC (4.8-10.8) K/uL RBC (4.7-6.1) M/uL Hgb (14.0-18.0) g/dL POC Hgb 13.6 L (14.0-18.0) g/dl Hct (42-52) % POC Hct 40 L (42-52) % MCV (80-100) fL MCH (25-34) pg MCHC (32-36) g/dL RDW Std Deviation (36.4-46.3) fL RDW Coeff of Scottie (11.5-14.5) % Plt Count (130-400) K/uL MPV (7.4-10.4) fL Immature Gran % (Auto) % Neut % (Auto) % Lymph % (Auto) % [place] % (Auto) % Eos % (Auto) % Baso % (Auto) % Immature Gran # (Auto) (0.00-0.02) K/uL Neut # (Auto) (1.4-6.5) K/uL Lymph # (Auto) (1.2-3.4) K/uL [place] # (Auto) (0.11-0.59) K/uL Eos # (Auto) (0-0.5) K/uL Baso # (Auto) (0-0.2) K/uL PT (9.0-12.0) Seconds INR (0.9-1.1) APTT (21.0-31.0) Seconds PTT Ratio POC Sodium 136 (135-144) mEq/L Sodium (136-145) mmol/L POC Potassium 4.3 (3.3-5.0) mEq/L Potassium (3.5-5.1) mmol/L POC Chloride 105 (101-112) mEq/L Chloride (98-107) mmol/L Carbon Dioxide (21-32) mmol/L POC Total CO2 23 L (24-31) mEq/l Anion Gap (3-11) POC Anion Gap 13.0 L (16-25) mmol/L POC BUN 51 H (7-18) mg/dl BUN (7-18) mg/dl Creatinine (0.6-1.4) mg/dl POC Creatinine 2.9 H (0.6-1.3) mg/dl Est Cr Clr Drug Dosing Est GFR ( Amer) Est GFR (Non-Af Amer) BUN/Creatinine Ratio (10-20) Glucose (70-99) mg/dl POC Glucose (other) 195 H (70-99) mg/dl Lactate 0.8 (0.4-2.0) mmol/L Calcium (8.5-10.1) mg/dl POC Ioniz Calcium Martinez 1.14 (1.12-1.32) mmol/l Magnesium (1.8-2.4) mg/dl Total Bilirubin (0.2-1) mg/dl AST (15-37) U/L ALT (12-78) U/L Alkaline Phosphatase (45-117) U/L Troponin I (0-0.045) ng/ml Total Protein (6.4-8.2) gm/dl Albumin (3.4-5.0) gm/dl Globulin (2.5-4.0) gm/dl Albumin/Globulin Ratio (0.9-2) TSH (0.300-4.500) uIu/ml Urine Color Red Urine Appearance Cloudy A (Clear) Urine pH 6.0 (4.5-7.5) Ur Specific [place] 1.020 (1.000-1.030) Urine Protein 2+ H (Negative) Urine Glucose (UA) Negative (Negative) Urine Ketones Negative (Negative) Urine Blood 3+ H (Negative) Urine Nitrite Negative (Negative) Urine Bilirubin Negative (Negative) Urine Urobilinogen Negative (Negative) Ur Leukocyte Esterase Negative (Negative) Urine RBC >30 H (0-4) /hpf Urine WBC >30 H (0-5) /hpf Ur Epithelial Cells 20-30 H (0-5) /lpf Urine Bacteria 1+ H (Negative) ECG Data Attestation: I personally reviewed and interpreted this ECG as follows: Indication: + tachycardia Rate (beats per minute): 157 Rhythm: + atrial fibrillation (with RVR) ECG Intervals/blocks: + Normal QRS ECG [place]: + Normal ECG Findings: + Other (trace depression in lateral leads ) Additional Comments: Repeat EKG: Indication: A fib w/ RVR Likely a fib, rate controlled at 92 bpm, ST changes improved in lateral leads, normal axis, normal QRS duration Blood Pressure Blood Pressure Findings: Low blood pressure Blood Pressure Disposition: Referred to patients primary care provider MDM Narrative The patient is a 74 year old male with a history of Afib who presents to the Emergency Room with complaints of urinary symptoms and rapid heart rate. Patient was seen and evaluated the bedside. The patient was presenting with some intermittent lightheadedness dizziness. Patient does present with A. fib with RVR. The patient does take rate control medication as well as Coumadin. Patient does see Dr. Brothers on a regular basis. The patient was given IV fluids. I did attempt a bedside ultrasound but was not able to obtain good views of the IVC or of the heart. No obvious pericardial effusion on the limited portion of what I can see. The patient does not have B-lines on exam believe the patient would tolerate some IV fluids although he does have some very trace lower extremity edema. Patient did receive the IV fluids and subsequently did receive 2 doses of Lopressor. The patient's rate did improve into the 90s low 100s. I did speak with the on-call hospitalist agreed to further evaluate treat the patient. Patient may have HECTOR versus CKD as I do not have prior lab values to compare but the patient's creatinine is elevated. Patient was admitted to the medicine service. Impression & Plan Atrial fibrillation with RVR, HECTOR (acute kidney injury) Discharge Plan Visit Data *Final* Discharge Date/Time: 06/14/19 00:31 Chief Complaint: Urinary Symptoms Stated Complaint: UTI, DARK URINE, SHAKEY ED Provider: Gunner Johnson Discharge Problem: Atrial fibrillation with RVR, HECTOR (acute kidney injury) Patient Disposition: Admitted As Inpatient Discharge Instructions Interventions: ED Discharge Assessment Last Done: 06/14/19 00:31 The scribe's documentation has been prepared under my direction and personally reviewed by me in its entirety. I confirm that the note above accurately reflects all work, treatment, procedures, and medical decision making performed by me.
[2019-06-14] MEDS ORDERED: PIPERACILL/TAZOBAC CONSULT ACTIVE PRN (00:35)
[2019-06-14] MEDS ORDERED: PIPERACILLIN/TAZOBACTAM 4.5 GM/120 ML BAG IV ONE (00:35)
[2019-06-14] MEDS ORDERED: GLUCOSE 10 TABS/TUBE PO PRN ×2 (00:45→01:23)
[2019-06-14] MEDS ORDERED: CARBOHYDRATES FOR HYPOGLYCEMIA PO PRN ×2 (00:45→01:23)
[2019-06-14] MEDS ORDERED: GLUCOSE 40% GEL 15 GM TUBE PO PRN ×2 (00:45→01:23)
[2019-06-14] MEDS ORDERED: GLUCAGON FOR INJ 1 MG VIAL SQ PRN ×2 (00:45→01:23)
[2019-06-14] MEDS ORDERED: DEXTROSE 50% 50 ML SYRINGE IV PRN ×2 (00:45→01:23)
[2019-06-14] MEDS ORDERED: PATIENT'S HEIGHT AND/OR WEIGHT NEEDED SCH (01:00)
[2019-06-14] MEDS ORDERED: TRAMADOL HCL 50 MG TABLET PO PRN (01:23)
[2019-06-14] MEDS ORDERED: NITROGLYCERIN SL 0.4 MG/TAB TAB SL PRN (01:23)
[2019-06-14] MEDS ORDERED: PROMETHAZINE HCL 12.5 MG in SODIUM CHLORIDE 0.9% 50 ML IV PRN (01:23)
[2019-06-14] MEDS ORDERED: SODIUM CHLORIDE 0.9% 1000ML 1,000 ML IV STA (01:23)
[2019-06-14] MEDS ORDERED: PHYTONADIONE 5 MG TAB PO STA (01:23)
[2019-06-14] MEDS ORDERED: ACETAMINOPHEN 325 MG TAB PO PRN (01:23)
[2019-06-14] MEDS ORDERED: INSULIN GLARGINE SOLOSTAR 100 UNITS/ML 3 ML PEN SC STA (01:23)
[2019-06-14] MEDS ORDERED: HYDROmorphone INJ 0.5 MG/0.5 ML SYR IV PRN (01:23)
[2019-06-14] MEDS ORDERED: LORazepam 1 MG TAB PO PRN (01:29)
[2019-06-14] MEDS ORDERED: PHYTONADIONE PED 2 MG, ORA-SWEET SYRUP 2.25 ML, ORA-PLUS SUSP VEHICLE 2.25 ML, BARCODE ... PO STA (01:30)
[2019-06-14] MEDS: INSULIN ASPART 100 UNITS/ML 3 ML PEN SC SCH ×5 (02:28→21:12)
[2019-06-14 04:52] LABS: Basophils # (auto) 0.01 K/uL (0-0.2); Basophils % (auto) 0.1 %; Eosinophils # (auto) 0.06 K/uL (0-0.5); Eosinophils % (auto) 0.8 %; Hematocrit (blood only) 39.8 % (42-52); Hemoglobin 12.7 g/dL (14.0-18.0); Immature Granulocytes # (auto) 0.02 K/uL (0.00-0.02); Immature Granulocytes % (auto) 0.3 %; Lymphocytes # (auto) 0.82 K/uL (1.2-3.4); Lymphocytes % (auto) 11.3 %; Mean Corpuscular Hemoglobin 27.9 pg (25-34); Mean Corpuscular Hgb Conc 31.9 g/dL (32-36); Mean Corpuscular Volume 87.5 fL (80-100); Mean Platelet Volume 9.2 fL (7.4-10.4); Monocytes % (auto) 2.8 %; Neutrophils # (auto) 6.14 K/uL (1.4-6.5); Neutrophils % (auto) 84.7 %; Platelet Count 225 K/uL (130-400); RDW Coefficient of Variation 15.4 % (11.5-14.5); RDW Standard Deviation 49.6 fL (36.4-46.3); Red Blood Count 4.55 M/uL (4.7-6.1); White Blood Count 7.25 K/uL (4.8-10.8)
[2019-06-14 05:09] LABS: Prothrombin Time 35.6 Seconds (9.0-12.0)
[2019-06-14 05:23] LABS: INR 3.8 (0.9-1.1)
[2019-06-14 05:25] LABS: BUN Creatinine Ratio 19.9 (10-20); Calcium 8.4 mg/dl (8.5-10.1); Creatinine Clr Calc Pharmacy 35.8 ml/min; Est GFR (Non-African American) 24.1; Potassium 5.6 mmol/L (3.5-5.1)
[2019-06-14] MEDS: PIPERACILLIN/TAZOBACTAM 4.5 GM in DEXTROSE 5% 100 ML IV SCH ×3 (05:52→21:01)
--- NOTE | 2019-06-14 06:38 | CT Scan Report ---
CT SCAN OF THE ABDOMEN AND PELVIS WITHOUT CONTRAST CLINICAL HISTORY: hematuria COMPARISON STUDY: No previous studies for comparison. TECHNIQUE: CT scan of the abdomen and pelvis was performed from the lung bases to the proximal femurs . Images are reviewed in the axial, sagittal, and coronal planes. IV contrast was not administered fo r this examination. A dose lowering technique was utilized adhering to the principles of ALARA. CT DOSE: 2335.25 mGy.cm FINDINGS: Lower chest: There are basilar atelectatic changes present. Liver: There is hepatic steatosis. No focal masses are visualized on this noncontrast examination. Gallbladder: Unremarkable. Spleen: Normal in size and attenuation. Pancreas: Unremarkable. Adrenal glands: Unremarkable. Kidneys: There are innumerable bilateral renal masses, likely representing a combination of cysts and hyperdense cysts. Accurate assessment is not possible given the noncontrast nature of the examinatio n. There is a punctate nonobstructing right renal calculus. There is a right-sided nephroureteral ariella nt. No ureteral or bladder calculi are visualized. There is no significant hydronephrosis. Bowel: Given the patient's large body habitus, portions of the right colon are not included on this s tudy. There are no transition zones indicate bowel obstruction. There is no evidence of acute appendi citis. There is no evidence of acute diverticulitis. Peritoneum: There is no intraperitoneal free air or abdominal ascites. There are small fat-containing inguinal hernias. Vasculature: The abdominal aorta is normal in course and caliber. Adenopathy: None. Pelvic viscera: There is mild prostatomegaly. There is nonspecific bladder wall thickening near the l evel of the right UVJ. A neoplastic etiology cannot be excluded Skeletal structures: No destructive osseous lesions are seen. IMPRESSION: 1. Hepatic steatosis 2. No evidence of bowel obstruction. No evidence of free air 3. No evidence of acute appendicitis. No evidence of acute diverticulitis 4. Multiple bilateral renal masses, likely representing a combination of cysts and hyperdense cysts. 5. Right-sided nephroureteral stent 6. Nonspecific bladder wall thickening near the right UVJ Electronically signed by: Christian Al M.D. 06/14/2019 6:37 AM
--- NOTE | 2019-06-14 06:55 | XRay Report ---
XR chest 1V portable CLINICAL HISTORY: 74 years-old Male presenting with tachypnea. TECHNIQUE: Portable upright AP view of the chest was obtained. COMPARISON: 12/03/2016 and CTA chest from 05/08/2017. FINDINGS: Cardiac silhouette mildly enlarged. No focal opacity. No large effusion or pneumothorax. Surgical cli ps project over the right axilla. Degenerative changes of the thoracic spine. Upper abdomen normal. IMPRESSION: 1. Mild cardiomegaly. No other convincing evidence of acute cardiopulmonary disease. Electronically signed by: Seven Ponce M.D. 06/14/2019 6:54 AM
[2019-06-14] MEDS: FLUDROCORTISONE ACETATE 0.1 MG TAB PO SCH (08:00)
[2019-06-14] MEDS: DOCUSATE SODIUM 100 MG CAP PO SCH ×2 (08:00→21:00)
[2019-06-14] MEDS ORDERED: METOPROLOL SUCC 50MG EXT REL TAB PO SCH (09:00)
[2019-06-14 14:35] LABS: BUN Creatinine Ratio 17.9 (10-20); Calcium 8.8 mg/dl (8.5-10.1); Creatinine Clr Calc Pharmacy 34.3 ml/min; Est GFR (African American) 26.6; Est GFR (Non-African American) 22.9; Potassium 5.1 mmol/L (3.5-5.1)
--- NOTE | 2019-06-14 15:14 | Urology Consultation ---
Date of Consultation June 14, 2019 Assessment & Plan (1) Gross hematuria: will observe the hematuria has not caused any significant anemia. agree with holding warfarin for a few days. I suspect the scab over the bladder tumor resection bed has pulled away and caused the bleeding. I am hopeful this will be self limiting. No plan to take to OR for any interventions planned in the near future. Will follow. Urine culture will be available in 1-2 days. I am not certain he has a UTI but culture will guide us. He had a mejia catheter for 2 weeks post-op recently so he could easily have picked up a bug from that catheter. Present on Admission?: Yes History of Present Illness Reason for Consultation: hematuria Requesting Physician: Dr Jorge Garza Attending Physician: Estuardo Garza MD History of Present Illness I am asked by Dr Garza to evaluate and treat patient for hematuria. Patient is admitted via R for feeling faint. 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 He is most recently s/p large bladder resection 05/12/19 at [facility] with Dr Moore. He had a mejia for 2 weeks post-op so I suspect this was a deep resection. His coumadin was help post-op for about one week. He has noted a return of gross hematuria last 3 days. It was tea colored then red starting yesterday. he has passed small and medium clots without difficulty. He is afebrile and does no have anemia or leukocytosis. He does have an elevated creatinine compared to his baseline. His INR was mildly supratherapeutic at admission. Allergies Allergy/AdvReac Type Severity Reaction Status Date / Time perflutren Allergy Intermediate GI SYMPTOMS Verified 06/13/19 21:59 propylene glycol Allergy Intermediate GI SYMPTOMS Verified 06/13/19 21:59 simvastatin Allergy Intermediate JOINT AND Verified 06/13/19 21:59 MUSCLE PAIN Home Medications Home Medications Medication Instructions Recorded Confirmed Type cholecalciferol (vitamin D3) 1,000 unit PO QAM 04/20/18 06/13/19 History [Vitamin D3] docusate sodium [Colace] 100 mg PO AMHS 04/20/18 06/13/19 History hydrocortisone 20 mg PO DIRECTED 04/20/18 06/13/19 History pramipexole 0.5 mg tablet 0.5 mg PO DIRECTED 06/01/18 06/13/19 History lorazepam 1 mg tablet 1 mg PO BID PRN tab 08/10/18 06/13/19 History ondansetron HCl 4 mg tablet 4 mg PO Q8H PRN tab 08/10/18 06/13/19 History torsemide 5 mg PO QAM #30 tab 12/10/18 06/13/19 Rx acetaminophen [Tylenol Extra 500 mg PO Q6H PRN 05/22/19 06/13/19 History Strength] calcitriol 0.25 mcg PO HS 05/22/19 06/13/19 History fludrocortisone 0.1 mg PO QAM 05/22/19 06/13/19 History hydrocortisone 10 mg PO PM 05/22/19 06/13/19 History methylprednisolone sodium succ 125 mg IM DIRECTED PRN 05/22/19 06/13/19 History metoprolol succinate 50 mg PO BID 05/22/19 06/13/19 History triamcinolone acetonide 1 applic TOPICAL BID PRN 05/22/19 06/13/19 History warfarin 4.5 mg PO 4XWK 05/22/19 06/13/19 History warfarin [Coumadin] 3 mg PO 3XWK 05/22/19 06/13/19 History Patient History Medical History Adrenal insufficiency S/P LEFT ADRENALECTOMY- ON CHRONIC HYDROCORTISONE Anxiety (Chronic) 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- IMMUNOTHERAPY Q 2 WEEKS (on hold) Chronic back pain Degenerative disc disease Dyslipidemia (Chronic) H/O transfusion of packed red blood cells S/P 2 UNITS (2016) History of immunotherapy (Chronic) Keytruda x 2 Cycles (had to stop after 2nd cycle) Current Opdivo q 2 weeks (currently on hold) - started 05/2017 - 04/2018 Hypertension Morbid obesity Osteoarthritis Sleep apnea CPAP HS Stage 3 chronic kidney disease Surgical History History of colonoscopy 2017 History of esophagogastroduodenoscopy (EGD) 2017 History of tooth extraction Hx of 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 Mother Colon cancer, Onset Age: 85 Chemo and Resection - Alive and well now Sister Breast cancer, Onset Age: 55 Had Radiation - Alive and well now Sister No problems noted. Sister No problems noted. Sister No problems noted. Sister No problems noted. Brother No problems noted. Son No problems noted. Son No problems noted. 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 Required: No Beliefs That Will Affect Care: None marital status: Single Current Living Situation: Other current occupational status: retired current occupation: Retired - [employer] Other Information That Helps Us Care for You: No Feels Safe at Home: Yes Smoking Status: Never smoker Second Hand Exposure: No ; Hx Alcohol Use: No Hx Substance Use: No caffeine: Yes (2 cups of coffee/day ) during the past year weight has: remained stable Review of Systems Review of Systems: PMH- metastatic melanoma on checkpoint TKI therapy, s/p adrenalectomy, obesity, afib, sleep apnea Fam Hx- not contributory for this issue Soc- former smoker, no alcohol, lives alone has grown children living in the area, retired ROS- no chest pain, + shortness of breath, + weakness, + dizziness, appetite sli ghtly depressed, no nausea or vomiting, no rash, no edema, no seizures, bowels moving well Physical Exam Constitutional: well developed, well nourished, + morbidly obese, + obese, healthy appearing and cooperative; not in distress Eyes: PERRL, conjunctivae normal, anicteric sclerae Respiratory: normal respiratory effort, lungs clear to auscultation Gastrointestinal (Abdomen): normal bowel sounds, soft, nontender, no hepatosplenomegaly Inspection/Auscultation: abdomen not distended and no abdominal edema obesity limits exam of internal organs no suprapubic fullness or tenderness Musculoskeletal: Extremities: extremities normal to inspection Shoulder: + skin erythema has a 20mm abrasion right mid caputo Skin: bilateral shins without pitting edema Psychiatric: A+Ox3, euthymic affect Genitourinary: urinal bottle with dark red bloody urine in small amounts. Results & Data Vital Signs (Past 12 Hours) Vital Signs Temp Pulse Resp BP Pulse Ox 06/14/19 14:01 76 22 178/70 H 06/14/19 14:00 89 29 H 06/14/19 13:01 69 19 132/58 L 06/14/19 12:00 36.8 C 83 24 154/80 H 06/14/19 11:33 81 19 172/85 H 06/14/19 10:00 58 L 19 06/14/19 08:00 64 23 150/72 H 96 06/14/19 07:58 36.6 C 65 23 156/76 H 97 06/14/19 07:00 57 L 20 06/14/19 05:00 61 22 136/75 06/14/19 04:00 112 H 19 105/83 06/14/19 03:24 104 H 21 115/74
[2019-06-14] MEDS: METOPROLOL SUCC 50MG EXT REL TAB PO SCH (15:18)
--- NOTE | 2019-06-14 17:03 | Hospitalist Progress Note ---
Date of Service June 14, 2019 Assessment & Plan (1) Hypotension: Hypotension Likely multifactorial: ? Adrenal insufficiency, Afib RVR, R/O infection A. fib RVR currently controlled Received Decadron, IV fluids Blood pressure improved A. fib RVR Likely precipitated by dehydration Continue metoprolol Coumadin on hold secondary to supratherapeutic INR and hematuria Monitor INR:3.8 Currently rate controlled Gross Hematuria: ? Due to supratherapeutic INR H/O recurrent Metastatic Melanoma S/P surgery w/ /adrenal mets S/P surgery/radiation To R/O UTI Urology consulted for Input Empirically on Zosyn Urine Culture:pending Monitor H&H transfuse PRBCs as needed Adrenal Insufficiency Continue fludrocortisone, Cortef Monitor blood pressure closely DM II A1C:2.66 Continue Insulin therapy Monitor BGs HECTOR on CKD III Baseline creatinine 1.8-2.0 Received IV fluids Monitor renal function Avoid nephrotoxic agents as able Torsemide held Cr:2.6 Consider nephrology evaluation if no improvement Past tobacco abuse DVT Px: Coumadin held secondary to supratherapeutic INR Code Status Full code Disposition PT OT prior to discharge Subjective Patient is seen and examined at bedside Complains of hematuria Converted to sinus Admits to having dysuria Denies any chest pain, shortness of breath, nausea, abdominal pain Offers no other complaint Review of Systems Review of Systems: All systems reviewed & are unremarkable except as noted in HPI & below Physical Exam Physical Exam: Physical Exam: Vitals signs as noted above General Appearance:Obese, no apparent distress Head: normocephalic, Atraumatic Eyes: normal inspection, EOMI Neck: supple, Trachea midline Respiratory/Chest: Normal breath sounds, CTA Cardiovascular: S1, S2, No murmur Abdomen/GI:Soft, Non tender, distended, Bowel sounds present Extremities/Musculoskelatal:normal inspection, 2+ B/L LE edema Neurologic/Psych:AAOX3, grossly no focal neurological deficits Skin: normal color, warm Results & Data Vital Signs (Past 12 Hours) Vital Signs Temp Pulse Resp BP Pulse Ox 06/14/19 15:58 65 06/14/19 15:00 77 20 188/77 H 98 06/14/19 14:01 76 22 178/70 H 06/14/19 14:00 89 29 H 06/14/19 13:01 69 19 132/58 L 06/14/19 12:00 36.8 C 83 24 154/80 H 06/14/19 11:33 81 19 172/85 H 06/14/19 10:00 58 L 19 06/14/19 08:00 64 23 150/72 H 96 06/14/19 07:58 36.6 C 65 23 156/76 H 97 06/14/19 07:00 57 L 20 06/14/19 05:00 61 22 136/75 Laboratory Results Short CBC 06/13/19 06/14/19 Range/Units 21:15 04:17 WBC 8.07 7.25 (4.8-10.8) K/uL Hgb 14.2 12.7 L (14.0-18.0) g/dL Hct 43.2 39.8 L (42-52) % Plt Count 267 225 (130-400) K/uL BMP 06/13/19 06/14/19 06/14/19 21:15 04:17 13:50 Sodium 136 136 138 Potassium 4.3 5.6 H D 5.1 Chloride 104 106 107 Carbon Dioxide 23 23 23 BUN 54 H 51 H 48 H Creatinine 2.79 H 2.55 H 2.66 H Glucose 188 H 276 H 256 H Calcium 9.1 8.4 L 8.8 Cardiac Enzymes 06/13/19 Range/Units 21:15 Troponin I < 0.015 (0-0.045) ng/ml Liver Function 06/13/19 Range/Units 21:15 Total Bilirubin 0.4 (0.2-1) mg/dl AST 40 H (15-37) U/L ALT 60 (12-78) U/L Alkaline Phosphatase 111 (45-117) U/L Albumin 3.2 L (3.4-5.0) gm/dl Urine 06/14/19 Range/Units 00:01 Urine Color Red Urine Appearance Cloudy A (Clear) Urine pH 6.0 (4.5-7.5) Ur Specific [place] 1.020 (1.000-1.030) Urine Protein 2+ H (Negative) Urine Glucose (UA) Negative (Negative)
[2019-06-14 20:06] LABS: Hematocrit (blood only) 40.1 % (42-52); Hemoglobin 12.9 g/dL (14.0-18.0)
[2019-06-14] MEDS: HYDROCORTISONE 10 MG TAB PO SCH (21:00)
[2019-06-14] MEDS: CALCITRIOL 0.25 MCG CAPSULE PO SCH (21:01)
[2019-06-15] MEDS: METOPROLOL SUCC 50MG EXT REL TAB PO SCH ×2 (05:28→14:54)
[2019-06-15 05:57] LABS: Hematocrit (blood only) 38.9 % (42-52); Hemoglobin 12.3 g/dL (14.0-18.0); Mean Corpuscular Hemoglobin 27.6 pg (25-34); Mean Corpuscular Hgb Conc 31.6 g/dL (32-36); Mean Corpuscular Volume 87.4 fL (80-100); Mean Platelet Volume 9.2 fL (7.4-10.4); Platelet Count 237 K/uL (130-400); RDW Coefficient of Variation 15.5 % (11.5-14.5); RDW Standard Deviation 49.9 fL (36.4-46.3); Red Blood Count 4.45 M/uL (4.7-6.1)
[2019-06-15 06:06] LABS: INR 2.9 (0.9-1.1); Prothrombin Time 27.4 Seconds (9.0-12.0)
[2019-06-15] MEDS: PIPERACILLIN/TAZOBACTAM 4.5 GM in DEXTROSE 5% 100 ML IV SCH ×2 (06:28→14:54)
[2019-06-15 06:30] LABS: BUN Creatinine Ratio 17.8 (10-20); Calcium 8.9 mg/dl (8.5-10.1); Creatinine Clr Calc Pharmacy 36.8 ml/min; Est GFR (African American) 28.9; Potassium 4.8 mmol/L (3.5-5.1)
[2019-06-15] MEDS: INSULIN ASPART 100 UNITS/ML 3 ML PEN SC SCH ×4 (08:40→21:21)
[2019-06-15] MEDS: FLUDROCORTISONE ACETATE 0.1 MG TAB PO SCH (08:41)
[2019-06-15] MEDS: DOCUSATE SODIUM 100 MG CAP PO SCH ×2 (08:41→21:20)
[2019-06-15] MEDS: INSULIN GLARGINE SOLOSTAR 100 UNITS/ML 3 ML PEN SQ SCH (08:42)
[2019-06-15] MEDS ORDERED: ACETAMINOPHEN 325 MG TAB PO PRN (10:10)
--- NOTE | 2019-06-15 15:36 | Urology Progress Note ---
Date of Service June 15, 2019 Assessment & Plan (1) Gross hematuria: the hematuria is improving. I think he may resume the coumadin but would not bolus dose him. I do not think he has a UTI so would stop antibiotics at this time. pinpoint growth after a mejia for 2 weeks and an indwelling ureteral stent in situ sound pretty normal. I suggest repeat labs on Thursday to check creatinine. seems to be recovering slowly The mildl drop in H/H seems dilutional not acute blood loss. Present on Admission?: Yes Subjective Patient sitting up in chair at bedside. Feels better overall. Is still concerned that the urine is still bloody. 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 His labs are improving. Urine culture is essentially no growth, pinpoint growth. He is tolerating diet well. He is concerned that he is getting insulin shots. He was transferred from ICU to tele Review of Systems Review of Systems: no fever, no chest pain, no shortness of breath, no diarrhea, no dysuria, urine still bloody, no calf pain. No nausea no emesis Physical Exam Constitutional: WD/WN, vitals as above well nourished and + morbidly obese Genitourinary: urine is a dark pink color, no clots Results & Data Vital Signs (Past 12 Hours) Vital Signs Temp Pulse Resp BP BP Pulse Ox 06/15/19 14:51 79 126/79 06/15/19 11:11 36.4 C L 71 18 150/81 H 99 06/15/19 04:19 36.7 C 76 19 162/73 H 97
[2019-06-15] MEDS ORDERED: WARFARIN SOD 3 MG TAB PO SCH (16:00)
--- NOTE | 2019-06-15 18:07 | Hospitalist Progress Note ---
Date of Service June 15, 2019 Assessment & Plan (1) Hypotension: Hypotension -Patient presented on 06/13/19 with hematuria and atrial fibrillation with rapid ventricular response and hypotension -patient had received Decadron on admission and IV fluids with subsequent improvements in blood pressures -currently blood pressure is normal Atrial fibrillation with Rapid Ventricular Response Supratherapeutic INR -Likely precipitated by dehydration -Continue metoprolol -heart rate is controlled and patient appears to be in normal rhythm at this time -initial INR on admission was supratherapeutic -INR is 2.9 on 06/15/19 and coumadin to be resumed as low dose 3 mg daily Adrenal Insufficiency -Continue home dose fludrocortisone 0.1 mg daily, hydrocortisone 10 mg qhs Gross hematuria -was empirically started on Zosyn on admission in case of urinary tract infection -patient was seen by urologist who advised to monitor off IV Zosyn on 06/15/19 as results of only pin point growth in urine cultures -hemoglobin appears stable and hematuria is resolving -monitor the CBC History of recurrent Metastatic Melanoma -S/P surgery in the past with Genitourinary/adrenal metastasis and S/P surgery/radiation in the past -outpatient oncology follow up Type 2 diabetes mellitus -12/08/18 Hba1c of 6.4 -given patient's history of recent steroid use but also malignancy, it is unclear what the true HbA1c value is -sliding scale insulin while patient is inpatient -Diabetic diet Past tobacco use Acute Kidney Injury on Chronic Kidney Disease stage III -Baseline creatinine 1.8-2.0 in December 2018 but was as high as 2.87 in beginning of May 2019 -admission creatinine 2.79 -home diuretics have been held and creatinine downtrended to 2.48 DVT Prophylaxis: Coumadin held secondary to supratherapeutic INR Subjective Patient seen and examined at bedside. His urine is reported to be more clear than yesterday. Hemoglobin stable. Patient breathing on room air. denies vomiting. denies abdominal pain. no chest pain. no palpitations. no fever. Patient was seen by urologist who advised to monitor off IV Zosyn Review of Systems Review of Systems: All systems reviewed & are unremarkable except as noted in HPI & below Physical Exam Constitutional: comfortable Eyes: PERRL, conjunctivae normal, anicteric sclerae EOM intact bilaterally ENMT: external ear and nose normal, oropharynx normal Respiratory: normal respiratory effort, lungs clear to auscultation Cardiovascular: Rate/Rhythm: regular rate and regular rhythm Gastrointestinal (Abdomen): normal bowel sounds, soft, nontender, no hepatosplenomegaly Musculoskeletal: Head/Neck/Chest: normocephalic and head atraumatic Neurologic: PERRL, EOMI, accommodation nl, no face palsy, no dysarthria Psychiatric: A+Ox3, euthymic affect Results & Data Vital Signs (Past 12 Hours) Vital Signs Temp Pulse Resp BP BP Pulse Ox 06/15/19 14:51 79 126/79 06/15/19 11:11 36.4 C L 71 18 150/81 H 99
[2019-06-15] MEDS: CALCITRIOL 0.25 MCG CAPSULE PO SCH (21:20)
[2019-06-15] MEDS: HYDROCORTISONE 10 MG TAB PO SCH (21:20)
[2019-06-16] MEDS: METOPROLOL SUCC 50MG EXT REL TAB PO SCH (05:35)
[2019-06-16 06:27] LABS: Basophils # (auto) 0.01 K/uL (0-0.2); Basophils % (auto) 0.2 %; Eosinophils # (auto) 0.41 K/uL (0-0.5); Hematocrit (blood only) 40.2 % (42-52); Hemoglobin 12.7 g/dL (14.0-18.0); Immature Granulocytes # (auto) 0.02 K/uL (0.00-0.02); Immature Granulocytes % (auto) 0.3 %; Lymphocytes # (auto) 1.09 K/uL (1.2-3.4); Lymphocytes % (auto) 18.7 %; Mean Corpuscular Hemoglobin 27.4 pg (25-34); Mean Corpuscular Hgb Conc 31.6 g/dL (32-36); Mean Corpuscular Volume 86.6 fL (80-100); Mean Platelet Volume 9.6 fL (7.4-10.4); Monocytes # (auto) 0.41 K/uL (0.11-0.59); Neutrophils # (auto) 3.88 K/uL (1.4-6.5); Neutrophils % (auto) 66.8 %; Platelet Count 237 K/uL (130-400); RDW Coefficient of Variation 15.7 % (11.5-14.5); RDW Standard Deviation 50.1 fL (36.4-46.3); Red Blood Count 4.64 M/uL (4.7-6.1); White Blood Count 5.82 K/uL (4.8-10.8)
[2019-06-16 06:34] LABS: Prothrombin Time 19.7 Seconds (9.0-12.0)
[2019-06-16 07:02] LABS: Albumin Level 2.8 gm/dl (3.4-5.0); BUN Creatinine Ratio 17.1 (10-20); Calcium 9.1 mg/dl (8.5-10.1); Creatinine Clr Calc Pharmacy 40.4 ml/min; Est GFR (Non-African American) 27.6; Potassium 4.8 mmol/L (3.5-5.1)
[2019-06-16 07:05] LABS: Albumin Globulin Ratio 0.7 (0.9-2); Bilirubin,Total 0.4 mg/dl (0.2-1); Globulin 3.9 gm/dl (2.5-4.0); Total Protein 6.7 gm/dl (6.4-8.2)
[2019-06-16 07:13] VITALS: TEMP 97.7; O2SAT 97
[2019-06-16] MEDS: INSULIN ASPART 100 UNITS/ML 3 ML PEN SC SCH (08:35)
[2019-06-16] MEDS: DOCUSATE SODIUM 100 MG CAP PO SCH (08:40)
[2019-06-16] MEDS: FLUDROCORTISONE ACETATE 0.1 MG TAB PO SCH (08:41)
[2019-06-16] MEDS: INSULIN GLARGINE SOLOSTAR 100 UNITS/ML 3 ML PEN SQ SCH (08:46)
--- NOTE | 2019-06-16 09:01 | Hospitalist Progress Note ---
Date of Service June 16, 2019 Assessment & Plan (1) Hypotension: Hypotension -Patient presented on 06/13/19 with hematuria and atrial fibrillation with rapid ventricular response and hypotension -patient had received Decadron on admission and IV fluids with subsequent improvements in blood pressures -currently blood pressure is normal Atrial fibrillation with Rapid Ventricular Response Supratherapeutic INR -Likely precipitated by dehydration -Continue metoprolol -heart rate is controlled and patient appears to be in normal rhythm at this time -initial INR on admission was supratherapeutic -INR is 2.9 on 06/15/19 and coumadin resumed as low dose 3 mg -INR is 2 on 06/16/19, patient may resume home dose coumadin Adrenal Insufficiency Chronic current use of systemic steroids -Continue home dose fludrocortisone 0.1 mg daily, hydrocortisone 10 mg qhs Gross hematuria -was empirically started on Zosyn on admission in case of urinary tract infection -patient was seen by urologist who advised to monitor off IV Zosyn on 06/15/19 as results of only pin point growth in urine cultures -hemoglobin appears stable above 12 and hematuria is resolving History of recurrent Metastatic Melanoma -S/P surgery in the past with Genitourinary/adrenal metastasis and S/P surgery/radiation in the past -outpatient oncology/urology follow up Type 2 diabetes mellitus -12/08/18 Hba1c of 6.4 -given patient's history of recent steroid use but also malignancy, it is unclear what the true HbA1c value is -sliding scale insulin while patient is inpatient -Diabetic diet -Have expressed to patient that given history of steroids in home medications that he my need to be started on diabetes medications such as insulin (maybe 5 to 10 units daily of Lantus) but because it is unclear as to how his outpatient steroids are being adjusted on outpatient basis, that patient should discuss with primary medical doctor on Diabetes control Past tobacco use Acute Kidney Injury on Chronic Kidney Disease stage III -Baseline creatinine 1.8-2.0 in December 2018 but was as high as 2.87 in beginning of May 2019 -admission creatinine 2.79 -home diuretics have been held and creatinine downtrended to 2.48 -Patient will need follow up with specialists and primary care doctor and will need repeat hemoglobin, renal function labs, INR level, and glucose checked. -Appointments 06/20/2019 11:10 AM Provider Prasad Sherrick Mcguire, DO Department Family Practice [facility] 08/08/2019 10:40 AM Provider Dereje Cuevas MD Department Nephrology, [facility] 08/23/2019 8:00 AM Provider Nurse Cardio [facility] Department Cardiac Studies, [facility] 08/25/2019 11:30 AM Provider [facility] Department Radiology, [place] 08/25/2019 12:[address] [facility] Department Radiology, [place] 08/25/2019 1:45 PM Provider Trinh Moore MD Department Urology, [place] DVT Prophylaxis: on coumadin Discharge Diagnosis Hypotension (resolved), Atrial fibrillation with Rapid Ventricular Response (resolved), Supratherapeutic INR (resolved), Gross hematuria, Acute Kidney Injury on Chronic Kidney Disease stage III, Type 2 diabetes mellitus, Chronic current use of systemic steroids Subjective Patient was seen and evaluated at bedside. Hemoglobin remains stable. Patient reports urine continues to be more clear. No events on telemetry. remains in sinus rhythm. Patient denies chest pain or abdominal pain or shortness of breath or vomiting or dizziness. Discussed with patient about discharge plans at length Review of Systems Review of Systems: All systems reviewed & are unremarkable except as noted in HPI & below Physical Exam Constitutional: comfortable Eyes: PERRL, conjunctivae normal, anicteric sclerae EOM intact bilaterally ENMT: external ear and nose normal, oropharynx normal Respiratory: normal respiratory effort, lungs clear to auscultation Cardiovascular: Rate/Rhythm: regular rate and regular rhythm Gastrointestinal (Abdomen): normal bowel sounds, soft, nontender, no hepatosplenomegaly Musculoskeletal: Head/Neck/Chest: normocephalic and head atraumatic Neurologic: PERRL, EOMI, accommodation nl, no face palsy, no dysarthria Psychiatric: A+Ox3, euthymic affect Results & Data Vital Signs (Past 12 Hours) Vital Signs Temp Pulse Resp BP BP Pulse Ox 06/16/19 07:13 36.5 C 74 19 168/76 H 97 06/16/19 04:39 36.4 C L 66 19 147/83 H 96 06/15/19 23:43 36.5 C 64 20 153/78 H 98
--- NOTE | 2019-06-16 09:04 | Discharge Summary ---
Date of Service June 16, 2019 Admission HPI Per Admitting Provider History obtained from the patient and records. Medical history significant for cardiomyopathy as per records (EF 50 to 55%, TTE 2018), A. 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 fib with RVR. Recent cystourethroscopy with large bladder tumor fulguration at [facility] last month. Yesterday afternoon, patient noted lightheadedness symptoms. Heartbeat noted to be fast. Complaining of dysuria, dark red urine. With minimal back discomfort. No chest pain, no S OB. Some S OB. At the ER, patient noted to be in rapid A. fib. MEDICAL HISTORY: As above. PET/CT March 2019 Interval development of a metabolically active 1.5 cm lymph node between the pancreatic head, IVC and right renal hilum, suspicious for metastatic disease. Interval increase in size of exophytic bladder mass. Indeterminate focus of increased metabolic activity involving a small bowel loop, just caudad to the proximal transverse colon. Although this could represent physiologic uptake, metastatic disease is not excluded. Attention on follow-up PET/CT. Heterogeneous metabolic activity in the liver which could be physiologic or represent noise artifact. Limited evaluation for space-occupying lesion in the liver on the noncontrast CT portion of the exam. Attention on follow-up. SURGERIES: Adrenalectomy, skin cancer surgery, urologic procedures FAMILY HISTORY: Colon cancer, heart disease, stroke. PERSONAL AND SOCIAL HISTORY: Past tobacco abuse. Past alcohol abuse. 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 Admission Exam Per Admitting Provider Physical Exam Physical Exam: GENERAL: Comfortable, slightly hard of hearing, morbidly obese, no respiratory distress SKIN: Pallor, warm HEENT: Bespectacled, pale palpebral conjunctivae, no ptosis, dry buccal mucosa NECK : Supple, short neck, no tenderness CHEST : CTA, no tenderness HEART : Tachycardic, irregular no obvious murmurs ABDOMEN: Some distention, no overt tenderness EXTREMITIES : Minimal bilateral LE swelling, no LE tenderness, no other co nspicuous deformities noted NEUROLOGIC : Coherent, slightly hard of hearing, no facial asymmetry, no other gross focality Principal Diagnosis Hypotension (resolved), Atrial fibrillation with Rapid Ventricular Response (resolved), Supratherapeutic INR (resolved), Gross hematuria, Acute Kidney Injury on Chronic Kidney Disease stage III, Type 2 diabetes mellitus, Chronic current use of systemic steroids Discharge Exam Constitutional comfortable Eyes PERRL, conjunctivae normal, anicteric sclerae EOM intact bilaterally ENMT external ear and nose normal, oropharynx normal Respiratory normal respiratory effort, lungs clear to auscultation Cardiovascular Rate/Rhythm: regular rate and regular rhythm Gastrointestinal (Abdomen) normal bowel sounds, soft, nontender, no hepatosplenomegaly Musculoskeletal Head/Neck/Chest: normocephalic and head atraumatic Neurologic PERRL, EOMI, accommodation nl, no face palsy, no dysarthria Psychiatric A+Ox3, euthymic affect Discharge Data Allergies Allergy/AdvReac Type Severity Reaction Status Date / Time perflutren Allergy Intermediate GI SYMPTOMS Verified 06/13/19 21:59 propylene glycol Allergy Intermediate GI SYMPTOMS Verified 06/13/19 21:59 simvastatin Allergy Intermediate JOINT AND Verified 06/13/19 21:59 MUSCLE PAIN Consultations 06/13/19 22:43 ED Decision to Admit Stat 06/14/19 12:06 Consult Urology Routine Ordered Studies 06/14/19 00:01 CT abd pelvis wo con Urgent Hospital Course (1) Hypotension: Hypotension -Patient presented on 06/13/19 with hematuria and atrial fibrillation with rapid ventricular response and hypotension -patient had received Decadron on admission and IV fluids with subsequent improvements in blood pressures -currently blood pressure is normal Atrial fibrillation with Rapid Ventricular Response Supratherapeutic INR -Likely precipitated by dehydration -Continue metoprolol -heart rate is controlled and patient appears to be in normal rhythm at this time -initial INR on admission was supratherapeutic -INR is 2.9 on 06/15/19 and coumadin resumed as low dose 3 mg -INR is 2 on 06/16/19, patient may resume home dose coumadin Adrenal Insufficiency Chronic current use of systemic steroids -Continue home dose fludrocortisone 0.1 mg daily, hydrocortisone 10 mg qhs Gross hematuria -was empirically started on Zosyn on admission in case of urinary tract infection -patient was seen by urologist who advised to monitor off IV Zosyn on 11/27/19 as results of only pin point growth in urine cultures -hemoglobin appears stable above 12 and hematuria is resolving History of recurrent Metastatic Melanoma -S/P surgery in the past with Genitourinary/adrenal metastasis and S/P surgery/radiation in the past -outpatient oncology/urology follow up Type 2 diabetes mellitus -12/08/18 Hba1c of 6.4 -given patient's history of recent steroid use but also malignancy, it is unclear what the true HbA1c value is -sliding scale insulin while patient is inpatient -Diabetic diet -Have expressed to patient that given history of steroids in home medications that he my need to be started on diabetes medications such as insulin (maybe 5 to 10 units daily of Lantus) but because it is unclear as to how his outpatient steroids are being adjusted on outpatient basis, that patient should discuss with primary medical doctor on Diabetes control Past tobacco use Acute Kidney Injury on Chronic Kidney Disease stage III -Baseline creatinine 1.8-2.0 in December 2018 but was as high as 2.87 in beginning of May 2019 -admission creatinine 2.79 -home diuretics have been held and creatinine downtrended to 2.28 -Patient may resume home dose diuretic as outpatient -Patient will need follow up with specialists and primary care doctor and will need repeat hemoglobin, renal function labs, INR level, and glucose checked. -Appointments 06/20/2019 11:10 AM Provider Prasad Mcguire DO Department Family Practice [facility] 08/08/2019 10:40 AM Provider Dereje Cuevas MD Department Nephrology, [facility] 08/23/2019 8:00 AM Provider Nurse Cardio [facility] Department Cardiac Studies, [facility] 08/25/2019 11:30 AM Provider [facility] PREP Department Radiology, [place] 08/25/2019 12:[address] [facility] Department Radiology, [place] 08/25/2019 1:45 PM Provider Trinh Moore MD Department Urology, [place] DVT Prophylaxis: on coumadin Discharge Diagnosis Hypotension (resolved), Atrial fibrillation with Rapid Ventricular Response (resolved), Supratherapeutic INR (resolved), Gross hematuria, Acute Kidney Injury on Chronic Kidney Disease stage III, Type 2 diabetes mellitus, Chronic current use of systemic steroids Total Time Total Time Spent Total Time Spent (In Minutes): 40 minutes Total Time Includes: Examination of the Patient, Discharge Planning, Medication Reconciliation and Communication With Other Providers Discharge Plan Discharge Items Patient Disposition: Home - Self-Care Reason For Visit: RAPID AF Discharge Diagnosis: Hypotension (resolved), Atrial fibrillation with Rapid Ventricular Response (resolved), Supratherapeutic INR (resolved), Gross hematuria, Acute Kidney Injury on Chronic Kidney Disease stage III, Type 2 diabetes mellitus, Chronic current use of systemic steroids Condition on Discharge: Good Activity: Resume your previous activity Non-emergency contact: Primary Care Provider and Specialist Call non-emergency contact if: you have any medication questions Follow-up/Referrals: Prasad Mcguire DO [Primary Care Provider] - Diet: Carb Consistent or DM2 Addtl Attending Provider Instructions: Patient was treated at [facility] (Patient presented on 06/13/19 with hematuria and atrial fibrillation with rapid ventricular response and hypotension) Patient was evaluated by inpatient urologist Patient will need follow up with specialists and primary care doctor and will need repeat hemoglobin, renal function labs, INR level, and glucose checked. Have expressed to patient that given history of steroids in home medications that he my need to be started on diabetes medications such as insulin (maybe 5 to 10 units daily of Lantus) but because it is unclear as to how his outpatient steroids are being adjusted on outpatient basis, that patient should discuss with primary medical doctor on Diabetes control Appointments 06/20/2019 11:10 AM Provider Prasad Mcguire DO Department Family Practice [facility] 08/08/2019 10:40 AM Provider Dereje Cuevas MD Department Nephrology, [facility] 08/23/2019 8:00 AM Provider Nurse Cardio [facility] Department Cardiac Studies, [facility] 08/25/2019 11:30 AM Provider [facility] PREP Department Radiology, [place] 08/25/2019 12:[address] [facility] Department Radiology, [place] 08/25/2019 1:45 PM Provider Trinh Moore MD Department Urology, [place] Pending Studies at Discharge: Yes Studies:: urine culture 06/14/19 with pin point growth Stand-Alone Forms: My [facility], Smoking Cessation Medications and DC Order Prescriptions: Continued pramipexole [Mirapex] 0.5 mg tablet 0.5 mg PO DIRECTED RF: 0 ondansetron HCl 4 mg tablet 4 mg PO Q8H PRN (Reason: Nausea And Vomiting) RF: 0 docusate sodium [Colace] 100 mg Capsule 100 mg PO AMHS RF: 0 hydrocortisone 10 mg Tablet 20 mg PO DIRECTED RF: 0 cholecalciferol (vitamin D3) [Vitamin D3] 1,000 unit Capsule 1,000 unit PO QAM RF: 0 lorazepam [Ativan] 1 mg tablet 1 mg PO BID PRN (Reason: anxiety) RF: 0 torsemide 10 mg Tablet 5 mg PO QAM Qty: 30 RF: 0 metoprolol succinate 50 mg Tablet Extended Release 24 Hr 50 mg PO BID RF: 0 warfarin 3 mg Tablet 4.5 mg PO 4XWK RF: 0 hydrocortisone 10 mg Tablet 10 mg PO PM RF: 0 warfarin [Coumadin] 3 mg tablet 3 mg PO 3XWK RF: 0 acetaminophen [Tylenol Extra Strength] 500 mg Tablet 500 mg PO Q6H PRN (Reason: Pain) RF: 0 triamcinolone acetonide 0.1 % Cream 1 applic TOPICAL BID PRN (Reason: RASH ON LEGS, ARMS & BACK) RF: 0 methylprednisolone sodium succ 125 mg Recon Soln 125 mg IM DIRECTED PRN (Reason: EMERGENCY CASE) RF: 0 fludrocortisone 0.1 mg Tablet 0.1 mg PO QAM RF: 0 calcitriol 0.25 mcg Capsule 0.25 mcg PO HS RF: 0 Discharge Orders: Discharge Order (Routine); Ordered 06/16/19 Ordered By: Binh Babcock Admission Data Admit Date/Time: 06/14/19 00:06 Attending Provider: Binh Babcock Admit Provider: Getachew Mccall Primary Care Provider: Prasad Mcguire Other Providers: Getachew Mccall ; Radha Wolf
[2019-06-16 09:17] VITALS: BP 147/83; PULSE 74
[2019-06-16] MEDS ORDERED: WARFARIN SOD 3 MG TAB PO SCH (16:00)
[2019-06-17] MEDS ORDERED: WARFARIN SOD 0.5 MG TAB PO SCH (16:00)
[2019-06-17] MEDS ORDERED: WARFARIN SOD 4 MG TAB PO SCH (16:00)
== END 2019-06-16 09:45 | disposition home or self-care (01) | DRG 309 ==
LOC: ED 20:52 → SUATTDRO 06-14 00:06 → 1E 06-14 00:06 → 2S 06-14 22:40

== ENCOUNTER 2019-06-22 18:15 | Observation (INO) ==
[2019-06-22 19:20] LABS: Basophils # (auto) 0.02 K/uL (0-0.2); Basophils % (auto) 0.3 %; Eosinophils # (auto) 0.14 K/uL (0-0.5); Eosinophils % (auto) 1.8 %; Hematocrit (blood only) 39.6 % (42-52); Hemoglobin 12.9 g/dL (14.0-18.0); Immature Granulocytes # (auto) 0.02 K/uL (0.00-0.02); Immature Granulocytes % (auto) 0.3 %; Lymphocytes # (auto) 1.16 K/uL (1.2-3.4); Lymphocytes % (auto) 14.5 %; Mean Corpuscular Hemoglobin 28.3 pg (25-34); Mean Corpuscular Hgb Conc 32.6 g/dL (32-36); Mean Corpuscular Volume 86.8 fL (80-100); Mean Platelet Volume 9.4 fL (7.4-10.4); Monocytes # (auto) 0.44 K/uL (0.11-0.59); Monocytes % (auto) 5.5 %; Neutrophils # (auto) 6.22 K/uL (1.4-6.5); Neutrophils % (auto) 77.6 %; Platelet Count 283 K/uL (130-400); RDW Coefficient of Variation 15.5 % (11.5-14.5); RDW Standard Deviation 49.4 fL (36.4-46.3); Red Blood Count 4.56 M/uL (4.7-6.1)
[2019-06-22 20:11] LABS: BUN Creatinine Ratio 17.9 (10-20); Blood Urea Nitrogen 53 mg/dl (7-18); Carbon Dioxide 23 mmol/L (21-32); Chloride 102 mmol/L (98-107); Est GFR (African American) 23.4; Est GFR (Non-African American) 20.2; Glucose 335 mg/dl (70-99); Potassium 5.8 mmol/L (3.5-5.1); Sodium 133 mmol/L (136-145)
[2019-06-22] MEDS ORDERED: NovoLIN-R INSULIN PER UNIT CHARGE IV STA (20:14)
--- NOTE | 2019-06-22 21:42 | History & Physical Report ---
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 Pt was referred to ER for K: 5.8 Pt without any current symptoms In ER vitals stable, Corrected Na: 137 for glucose: 335, K: 5.8, BUN: 53, Cr: 2.9, GFR: 20. EKG sinus rhythm without acute ST changes -In ER given Insulin 10U IV -Repeat BMP to r/o pseudohyperkalemia -IVF -Closely monitor BMP (2) Acute kidney injury superimposed on CKD: CKD III. Follows with Dr Cuevas Today Cr: 2.9. Was 2.79 on 06/13/19 and 2.28 on hospital discharge on 06/16/19. Baseline Cr ~2 in 12/2018 and high as 2.8 early 05/2019. -IVF -Monitor renal functions -Avoid nephrotoxic agents when possible (3) Paroxysmal atrial fibrillation: Current sinus rhythm -INR pending -Continue metoprolol -Continue Coumadin and adjust accordingly to pending INR results (4) Diabetes type 2, uncontrolled: A1c: 9.8 on 06/22/19 Glucose 335 in ER. Received insulin 10U IV and repeat glucose 223 -Basal bolus insulin per protocol (5) Adrenal insufficiency: -Continue fludrocortisone, hydrocortisone (6) Sleep apnea: -Continue CPAP (7) Metastatic malignant melanoma: H/O metastasis to adrenal gland and bladder s/p chemo, radiation and surgery with most recent bladder resection on 05/12/[address] Moore at [facility]. Follows with Dr Rosario No current treatment (8) RLS (restless legs syndrome): -Continue pramipexole DVT Prophylaxis -On coumadin Full Code as per discussion with pt Follows with Dr Mcguire for routine care Pt was seen and care coordinated with Dr Najera. 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 Pt was referred to ER for K: 5.8, Cr: 2.7. Pt denies any current complaints. Recent hospitalization 06/14/19-06/16/19 for A-fib RVR, HECTOR on CKD III, hematuria. Pt states has been feeling "fine" since discharge. Reports urine seemed to be clearing up then was dark again and then clearing. Denies gross hematuria, abdominal pain, back pain, flank pain. Denies fever/chills, diaphoresis, N/V/D/C, LIANG, dizziness, syncope, vision changes, neck pain, CP, SOB, orthopnea, palpitations, cough, sore throat, choking, otalgia, rhinorrhea, paresthesias, weakness, extremity weakness, extremity edema, rashes, dysuria, urinary retention, urinary hesitancy, urinary frequency. Allergies Allergy/AdvReac Type Severity Reaction Status Date / Time perflutren AdvReac Intermediate GI SYMPTOMS Verified 06/22/19 22:05 propylene glycol AdvReac Intermediate GI SYMPTOMS Verified 06/22/19 22:05 simvastatin AdvReac Intermediate JOINT AND Verified 06/22/19 22:06 MUSCLE PAIN Home Medications Home Medications Medication Instructions Recorded Confirmed Type cholecalciferol (vitamin D3) 1,000 unit PO QAM 04/20/18 06/22/19 History [Vitamin D3] docusate sodium [Colace] 100 mg PO AMHS 04/20/18 06/22/19 History hydrocortisone 20 mg PO DIRECTED 04/20/18 06/22/19 History pramipexole 0.5 mg tablet 0.5 mg PO DIRECTED 06/01/18 06/22/19 History lorazepam 1 mg tablet 1 mg PO HS tab 08/10/18 06/22/19 History ondansetron HCl 4 mg tablet 4 mg PO Q8H PRN tab 08/10/18 06/22/19 History acetaminophen [Tylenol Extra 500 mg PO Q6H PRN 05/22/19 06/22/19 History Strength] calcitriol 0.25 mcg PO HS 05/22/19 06/22/19 History fludrocortisone 0.1 mg PO QAM 05/22/19 06/22/19 History hydrocortisone 10 mg PO PM 05/22/19 06/22/19 History methylprednisolone sodium succ 125 mg IM DIRECTED PRN 05/22/19 06/22/19 History metoprolol succinate 50 mg PO BID 05/22/19 06/22/19 History triamcinolone acetonide 1 applic TOPICAL BID PRN 05/22/19 06/22/19 History warfarin 4.5 mg PO UD 05/22/19 06/22/19 History warfarin [Coumadin] 3 mg PO UD 05/22/19 06/22/19 History torsemide 20 mg PO 6XWK 06/22/19 06/22/19 History Past Med/Surg History Medical History Adrenal insufficiency S/P LEFT ADRENALECTOMY- ON CHRONIC HYDROCORTISONE Anxiety (Chronic) 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- IMMUNOTHERAPY Q 2 WEEKS (on hold) Chronic back pain Degenerative disc disease Dyslipidemia (Chronic) H/O transfusion of packed red blood cells S/P 2 UNITS (2016) History of immunotherapy (Chronic) Keytruda x 2 Cycles (had to stop after 2nd cycle) Current Opdivo q 2 weeks (currently on hold) - started 05/2017 - 04/2018 Hypertension Morbid obesity Osteoarthritis Sleep apnea CPAP HS Stage 3 chronic kidney disease Surgical History History of colonoscopy 2016 History of esophagogastroduodenoscopy (EGD) 2017 History of tooth extraction Hx of 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 Mother Colon cancer, Onset Age: 85 Chemo and Resection - Alive and well now Sister Breast cancer, Onset Age: 55 Had Radiation - Alive and well now Sister No problems noted. Sister No problems noted. Sister No problems noted. Sister No problems noted. Brother No problems noted. Son No problems noted. Son No problems noted. Social History Preferred Language: Ivorian Communication Ability: Effective Visual Impairment: Limited Hearing Ability: Hard of Hearing Reading Intervention Teacher Required: No Beliefs That Will Affect Care: None marital status: Single Current Living Situation: Significant Other current occupational status: retired current occupation: Retired - [employer] Feels Safe at Home: Yes Smoking Status: Never smoker Do You Dip or Chew Tobacco: No ; Second Hand Exposure: No ; Hx Alcohol Use: No Hx Substance Use: No caffeine: Yes (2 cups of coffee/day ) during the past year weight has: remained stable Review of Systems Review of Systems: All systems reviewed & are unremarkable except as noted in HPI & below Physical Exam Physical Exam: General: no distress, obese Head: normocephalic, atraumatic Eyes: PERRL, EOM's intact, conjunctiva non-injected, anicteric ENT: normal inspection external ears, nose, mucous membranes moist Neck: supple, trachea midline Lungs: clear, no respiratory distress, no wheezing/rhonchi/rales CV: RRR, no murmur, 1+ pretibial edema Abd: normal BS, soft, non-tender Ext: no cyanosis, no calf tenderness Neuro: A&O x 3, no focal deficits noted, normal affect Skin: warm, dry Results & Data Vital Signs (Past 12 Hours) Vital Signs Temp Pulse Pulse Resp BP BP Pulse Ox 06/22/19 20:41 68 18 163/71 H 95 06/22/19 18:38 36.5 C 76 16 158/78 H Laboratory Results Short CBC 06/22/19 06/22/19 Range/Units 19:10 19:10 WBC 8.00 (4.8-10.8) K/uL Hgb 12.9 L (14.0-18.0) g/dL Hct 39.6 L (42-52) % Plt Count 283 (130-400) K/uL Potassium 5.8 H (3.5-5.1) mmol/L Est GFR (Non-Af Amer) 20.2 BMP 06/22/19 19:10 Sodium 133 L Potassium 5.8 H Chloride 102 Carbon Dioxide 23 BUN 53 H Creatinine 2.96 H Glucose 335 H* Calcium 9.0 ECG Rate (beats per minute): 75 Rhythm: sinus rhythm Code Status & VTE Plan VTE Prophylaxis Plan VTE Prophylaxis will be ordered: Yes Supervising Physician Co-Signing Physician Notes I have seen and examined the patient and have discussed the case with the provider above. I agree with the assessment and plan as stated with the following exceptions. 74 yo M with metastatic melanoma that is terminal, and new onset diabetes presents for hyperkalemia (K 5.8) seen on outpatient bloodwork. He is asymptomatic and feeling well, but appears somewhat distressed after his visit with Oncology. He denies potassium supplementation and takes torsemide. He is also on chronic steroids for adrenal insufficiency, and reports having elevated potassium levels on occasion related to this. He hasn't undergone any treatment for metastatic melanoma since November 2018. A recent A1C was 9.8 today, and he is not on medication for diabetes as outpatient. Physical exam reveals a well appearing man in NAD, who is obese. Heart and lung exam is normal and physical exam is otherwise as stated above. VSS. Renal function is at baseline. Repeat BMP revealed hemolysis again. Suspect if these levels are real there are multiple contributing factors here including CKD, dietary intake in foods, and adrenal insufficiency. Pt is also difficult to get blood from and two samples from today (1900 and 2300) were hemolyzed. Oil Sprayer used pedi tubes to fingertip stick on this last BMP this evening, which may have contributed to hemolysis. Will plan to cont renal diet, daily torsemide, and repeat K in am. Cont insulin to get glucose more under control and strongly recommend he go home on an antiglycemic regimen--something oral at a minimum, but if amenable may consider once daily Lantus. Diabetic nurse consultation to educate. Consider renal consult if increasing. Reinaldo, DO
[2019-06-22] MEDS ORDERED: GLUCOSE 40% GEL 15 GM TUBE PO PRN (22:02)
[2019-06-22] MEDS ORDERED: DEXTROSE 50% 50 ML SYRINGE IV PRN (22:02)
[2019-06-22] MEDS ORDERED: GLUCOSE 10 TABS/TUBE PO PRN (22:02)
[2019-06-22] MEDS ORDERED: GLUCAGON FOR INJ 1 MG VIAL SQ PRN (22:02)
[2019-06-22] MEDS ORDERED: ONDANSETRON INJ 2 MG/ML 2 ML VIAL IV PRN (22:02)
[2019-06-22] MEDS ORDERED: POLYETHYLENE (MIRALAX) 17 GM PACK PO PRN (22:02)
[2019-06-22] MEDS ORDERED: CARBOHYDRATES FOR HYPOGLYCEMIA PO PRN (22:02)
[2019-06-22] MEDS ORDERED: ACETAMINOPHEN 325 MG TAB PO PRN (22:02)
[2019-06-22] MEDS: SODIUM CHLORIDE 0.9% 1000ML 1,000 ML IV SCH (22:12)
[2019-06-22 22:59] LABS: INR 2.7 (0.9-1.1); Prothrombin Time 25.6 Seconds (9.0-12.0)
[2019-06-22] MEDS ORDERED: INSULIN ASPART 100 UNITS/ML 3 ML PEN SC SCH (23:00)
[2019-06-22] MEDS ORDERED: LORazepam 1 MG TAB PO SCH (23:00)
[2019-06-22 23:18] LABS: Calcium 9.2 mg/dl (8.5-10.1); Creatinine Clr Calc Pharmacy 33.3 ml/min; Est GFR (African American) 25.9; Est GFR (Non-African American) 22.3
[2019-06-22] MEDS: INSULIN GLARGINE SOLOSTAR 100 UNITS/ML 3 ML PEN SC SCH (23:31)
[2019-06-22] MEDS: PRAMIPEXOLE DIHYDROCHLO 0.5 MG TAB PO SCH (23:34)
--- NOTE | 2019-06-23 01:08 | Emergency Department Note ---
Entered by Shagufta Shipley acting as a scribe for Ugo Beebe MD History of Present Illness General Chief complaint: Referred by Doctor Stated complaint: POTASSIUM IS HIGH,DOCTOR REFERRED Time Seen by Provider: 06/22/19 18:46 Source: patient History of Present Illness Onset (ago): hour(s) (8) Location: head (general) Pain Consistency: + other (episode) Maximum Pain Intensity: 0 Quality: + other (abnormal blood work) Associated symptoms: no chest pain, no fever/chills, no nausea/vomiting and no shortness of breath The patient is a 74 year old male who presents to the Emergency Room with complaints of an episode of abnormal blood work beginning 8 hours ago. The yanci ent states he visited his doctor this morning for a routine followup following his recent admission to the hospital. He reports receiving a call just prior to arrival from his doctor telling him that his potassium is 5.8 and that needs to come to the ER. The patient denies chest pain, palpitations, fever, vomiting, and shortness of breath. The patient states he has been drinking a lot of orange juice and eating bananas. He note he has stopped drinking Gatorade. He has had no diarrhea. Home Medications Home Medications Medication Instructions Recorded Confirmed Type cholecalciferol (vitamin D3) 1,000 unit PO QAM 04/20/18 06/22/19 History [Vitamin D3] docusate sodium [Colace] 100 mg PO AMHS 04/20/18 06/22/19 History hydrocortisone 20 mg PO DIRECTED 04/20/18 06/22/19 History pramipexole 0.5 mg tablet 0.5 mg PO DIRECTED 06/01/18 06/22/19 History lorazepam 1 mg tablet 1 mg PO HS tab 08/10/18 06/22/19 History ondansetron HCl 4 mg tablet 4 mg PO Q8H PRN tab 08/10/18 06/22/19 History acetaminophen [Tylenol Extra 500 mg PO Q6H PRN 05/22/19 06/22/19 History Strength] calcitriol 0.25 mcg PO HS 05/22/19 06/22/19 History fludrocortisone 0.1 mg PO QAM 05/22/19 06/22/19 History hydrocortisone 10 mg PO PM 05/22/19 06/22/19 History methylprednisolone sodium succ 125 mg IM DIRECTED PRN 05/22/19 06/22/19 History metoprolol succinate 50 mg PO BID 05/22/19 06/22/19 History triamcinolone acetonide 1 applic TOPICAL BID PRN 05/22/19 06/22/19 History warfarin 4.5 mg PO UD 05/22/19 06/22/19 History warfarin [Coumadin] 3 mg PO UD 05/22/19 06/22/19 History torsemide 20 mg PO 6XWK 06/22/19 06/22/19 History Allergies Allergy/AdvReac Type Severity Reaction Status Date / Time perflutren AdvReac Intermediate GI SYMPTOMS Verified 06/22/19 22:05 propylene glycol AdvReac Intermediate GI SYMPTOMS Verified 06/22/19 22:05 simvastatin AdvReac Intermediate JOINT AND Verified 06/22/19 22:06 MUSCLE PAIN Past Med/Surg History Medical History Adrenal insufficiency S/P LEFT ADRENALECTOMY- ON CHRONIC HYDROCORTISONE Anxiety (Chronic) 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- IMMUNOTHERAPY Q 2 WEEKS (on hold) Chronic back pain Degenerative disc disease Dyslipidemia (Chronic) H/O transfusion of packed red blood cells S/P 2 UNITS (2016) History of immunotherapy (Chronic) Keytruda x 2 Cycles (had to stop after 2nd cycle) Current Opdivo q 2 weeks (currently on hold) - started 05/2017 - 04/2018 Hypertension Morbid obesity Osteoarthritis Sleep apnea CPAP HS Stage 3 chronic kidney disease Surgical History History of colonoscopy 2016 History of esophagogastroduodenoscopy (EGD) 2017 History of tooth extraction Hx of 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 Mother Colon cancer, Onset Age: 85 Chemo and Resection - Alive and well now Sister Breast cancer, Onset Age: 55 Had Radiation - Alive and well now Sister No problems noted. Sister No problems noted. Sister No problems noted. Sister No problems noted. Brother No problems noted. Son No problems noted. Son No problems noted. Social History Preferred Language: Bangladeshi Communication Ability: Effective Visual Impairment: Limited Hearing Ability: Hard of Hearing Security Police Officer Required: No Beliefs That Will Affect Care: None marital status: Single Current Living Situation: Significant Other current occupational status: retired current occupation: Retired - [employer] Feels Safe at Home: Yes Smoking Status: Never smoker Do You Dip or Chew Tobacco: No ; Second Hand Ex posure: No ; Hx Alcohol Use: No Hx Substance Use: No caffeine: Yes (2 cups of coffee/day ) during the past year weight has: remained stable Review of Systems See HPI for pertinent positives & negatives. and A total of 10 systems reviewed and were otherwise negative Physical Exam Vital Signs Vital Signs - 24 hr 06/22/19 18:38 06/22/19 20:41 Temperature 36.5 C Temperature Source Oral Pulse Rate 76 Pulse Rate [Apical] 68 Pulse Rhythm Regular Pulse Strength Normal Respiratory Rate 16 18 Respiratory Effort / Characteristics Non-Labored Respiratory Depth Normal Respiratory Pattern Regular Blood Pressure 158/78 H Blood Pressure [Right Arm] 163/71 H Blood Pressure Mean 104 Blood Pressure Mean [Right Arm] 101 Blood Pressure Position Sitting Pulse Oximetry 95 Oxygen Delivery Method Room Air Room Air Sepsis Recent Fever Within 48 Hours No Sepsis Action Taken by Nursing No Action Required Constitutional: Vital signs reviewed. Eyes: Pupils are equal round reactive to light. Conjunctiva are noninjected. ENT: Pharynx is clear without erythema or exudate. Mucous membranes are moist. Neck supple without meningeal signs. Respiratory: Clear to auscultation bilaterally. Breath sounds are equal bilaterally. Cardiovascular: Regular rate and rhythm. No rubs or gallops. GI: Soft, nondistended and nontender. Bowel sounds are present. Musculoskeletal: No peripheral edema. No lower extremity tenderness. Integumentary: No cyanosis. Neurological: The patient is awake and alert. No focal deficits. Psychiatric: Normal affect. Course Course 0: Past medical records reviewed. The patient was evaluated in room C06. A complete history and physical exam was performed. 2015: Upon reevaluation, I discussed findings and results with the patient . He verbalized agreement of the treatment plan. I spoke with Dr. Mccall of the [facility]. The patient will be evaluated for further management and care. Administered Medications Sodium Chloride (Nss 1000ml) 1,000 mls @ 125 mls/hr IV .Q8H RENZO Stop: 06/23/19 14:01 Last Admin: 06/22/19 22:12 Dose: 125 mls/hr Documented by: [id number] Insulin Glargine (Lantus Solostar Pen) 20 units SC BID RENZO Stop: 07/22/19 22:59 Last Admin: 06/22/19 23:31 Dose: 20 units Documented by: [id number] Cosigned by: [id number] Lorazepam (Ativan) 1 mg PO HS RENZO Stop: 07/22/19 22:59 Last Admin: 06/22/19 23:30 Dose: 1 mg Documented by: [id number] Pramipexole Dihydrochloride (Mirapex) 0.5 mg PO BID@1500,2100 RENOZ Stop: 07/22/19 22:59 Last Admin: 06/22/19 23:34 Dose: 0.5 mg Documented by: [id number] Discontinued Medications Insulin Aspart (Novolog Flexpen) 0 units SC ACHS RENZO Stop: 06/22/19 23:01 Last Admin: 06/22/19 23:33 Dose: 5 units Documented by: [id number] Cosigned by: [id number] Insulin Human Regular (Novolin R U-100 Per Unit) 10 units IV NOW [facility] Stop: 06/22/19 20:15 Last Admin: 06/22/19 20:21 Dose: 10 units Documented by: [id number] Cosigned by: [id number] Medical Decision Making Differential Diagnosis Differential diagnosis: lab error, hemolysis, dysrhythmia, HECTOR, metabolic derangement Medical Records Attestation: I reviewed the patient's medical records. I did perform a limited focused review of portions of the patient's old chart on the electronic medical record. The patient was admitted to the hospital on June 14 for a-fib with RVR, supratherapeutic INR, and hypertension. Home Medications Current Medication List: was personally reviewed by me Laboratory Data Attestation: I reviewed the patient's lab results. Result diagrams: 06/22/19 19:10 06/22/19 23:41 Lab Results 06/22/19 06/22/19 06/22/19 Range/Units 19:10 19:10 19:10 WBC 8.00 (4.8-10.8) K/uL RBC 4.56 L (4.7-6.1) M/uL Hgb 12.9 L (14.0-18.0) g/dL Hct 39.6 L (42-52) % MCV 86.8 (80-100) fL MCH 28.3 (25-34) pg MCHC 32.6 (32-36) g/dL RDW Std Deviation 49.4 H (36.4-46.3) fL RDW Coeff of Scottie 15.5 H (11.5-14.5) % Plt Count 283 (130-400) K/uL MPV 9.4 (7.4-10.4) fL Immature Gran % (Auto) 0.3 % Neut % (Auto) 77.6 % Lymph % (Auto) 14.5 % [place] % (Auto) 5.5 % Eos % (Auto) 1.8 % Baso % (Auto) 0.3 % Immature Gran # (Auto) 0.02 (0.00-0.02) K/uL Neut # (Auto) 6.22 (1.4-6.5) K/uL Lymph # (Auto) 1.16 L (1.2-3.4) K/uL [place] # (Auto) 0.44 (0.11-0.59) K/uL Eos # (Auto) 0.14 (0-0.5) K/uL Baso # (Auto) 0.02 (0-0.2) K/uL PT 25.6 H (9.0-12.0) Seconds INR 2.7 H (0.9-1.1) Sodium 133 L (136-145) mmol/L Potassium 5.8 H (3.5-5.1) mmol/L Chloride 102 (98-107) mmol/L Carbon Dioxide 23 (21-32) mmol/L Anion Gap 9.0 (3-11) BUN 53 H (7-18) mg/dl Creatinine 2.96 H (0.6-1.4) mg/dl Est Cr Clr Drug Dosing Not Reportable Est GFR ( Amer) 23.4 Est GFR (Non-Af Amer) 20.2 BUN/Creatinine Ratio 17.9 (10-20) Glucose 335 H* (70-99) mg/dl POC Glucose (70-99) Calcium 9.0 (8.5-10.1) mg/dl Beta-Hydroxybutyric Acd (0.2-2.81) mg/dl 06/22/19 Range/Units 21:06 WBC (4.8-10.8) K/uL RBC (4.7-6.1) M/uL Hgb (14.0-18.0) g/dL Hct (42-52) % MCV (80-100) fL MCH (25-34) pg MCHC (32-36) g/dL RDW Std Deviation (36.4-46.3) fL RDW Coeff of Scottie (11.5-14.5) % Plt Count (130-400) K/uL MPV (7.4-10.4) fL Immature Gran % (Auto) % Neut % (Auto) % Lymph % (Auto) % [place] % (Auto) % Eos % (Auto) % Baso % (Auto) % Immature Gran # (Auto) (0.00-0.02) K/uL Neut # (Auto) (1.4-6.5) K/uL Lymph # (Auto) (1.2-3.4) K/uL [place] # (Auto) (0.11-0.59) K/uL Eos # (Auto) (0-0.5) K/uL Baso # (Auto) (0-0.2) K/uL PT (9.0-12.0) Seconds INR (0.9-1.1) Sodium (136-145) mmol/L Potassium (3.5-5.1) mmol/L Chloride (98-107) mmol/L Carbon Dioxide (21-32) mmol/L Anion Gap (3-11) BUN (7-18) mg/dl Creatinine (0.6-1.4) mg/dl Est Cr Clr Drug Dosing Est GFR ( Amer) Est GFR (Non-Af Amer) BUN/Creatinine Ratio (10-20) Glucose (70-99) mg/dl POC Glucose 223 H (70-99) Calcium (8.5-10.1) mg/dl Beta-Hydroxybutyric Acd (0.2-2.81) mg/dl ECG Data Attestation: I personally reviewed and interpreted this ECG as follows: Indication: + other (hyperkalemia) Rate (beats per minute): 75 Rhythm: + normal sinus ECG Intervals/blocks: + Normal QRS (82 ms) ECG Findings: no PVCs and no Peaked T waves Blood Pressure Blood Pressure Findings: Elevated blood pressure Blood Pressure Disposition: further management by hospitalist MDM Narrative I did evaluate the patient as noted above. The patient was sent here for evaluation of hyperkalemia. He does have a history of chronic kidney disease. He is completely asymptomatic. IV access was established. The patient was placed on a continuous equipment monitor phototypesetting. Cardiac monitoring: Indication: Hyperkalemia Rate and rhythm: Normal sinus rhythm without widening of the QRS. No peak T waves were noted. No dysrhythmias or significant ectopy. I did order and personally review the patient's 12-lead EKG as described above. He does not have any widening of the QRS or hyperacute T waves suggestive of severe hyperkalemia. I did order and review the patient's blood work as noted in the electronic medical record. CBC shows chronic anemia. The electrolyte panel shows a worsening creatinine as well as a potassium of 5.8. He is also hyperglycemic. He has no EKG changes and so I did not treat him with IV calcium. He was given 10 units of regular insulin IV for his hyperkalemia as well as his hyperglycemia. I did discuss the test results with the patient. Given his lab findings he will be hospitalized for further care. I did discuss case with the hospitalist and residential case manager. Impression & Plan Hyperkalemia, Udeup-bp-ufgjely kidney injury, Hyperglycemia Discharge Plan Visit Data *Final* Discharge Date/Time: 06/22/19 21:31 Chief Complaint: Referred by Doctor Stated Complaint: POTASSIUM IS HIGH,DOCTOR REFERRED ED Provider: Ugo Beebe Discharge Problem: Hyperkalemia, Cufyu-kx-covduor kidney injury, Hyperglycemia Patient Disposition: Being Evaluated by Hospitalist Discharge Instructions Interventions: ED Discharge Assessment Last Done: 06/22/19 21:31 Discharge Problem: Ruslb-ci-inxlcyd kidney injury Qualifiers: Acute renal failure type: unspecified Chronic kidney disease stage: unspecified stage Qualified Code(s): N17.9 - Acute kidney failure, unspecified The scribe's documentation has been prepared under my direction and personally reviewed by me in its entirety. I confirm that the note above accurately reflects all work, treatment, procedures, and medical decision making performed by me.
[2019-06-23] MEDS: HYDROCORTISONE 10 MG TAB PO SCH ×2 (05:34→13:01)
[2019-06-23] MEDS: SODIUM CHLORIDE 0.9% 1000ML 1,000 ML IV SCH (05:36)
[2019-06-23 06:32] LABS: Hematocrit (blood only) 40.4 % (42-52); Hemoglobin 12.9 g/dL (14.0-18.0); Mean Corpuscular Hemoglobin 27.7 pg (25-34); Mean Corpuscular Hgb Conc 31.9 g/dL (32-36); Mean Corpuscular Volume 86.9 fL (80-100); Mean Platelet Volume 9.4 fL (7.4-10.4); Platelet Count 249 K/uL (130-400); RDW Coefficient of Variation 15.6 % (11.5-14.5); Red Blood Count 4.65 M/uL (4.7-6.1); White Blood Count 5.78 K/uL (4.8-10.8)
[2019-06-23 06:41] LABS: INR 2.9 (0.9-1.1); Prothrombin Time 27.2 Seconds (9.0-12.0)
[2019-06-23 07:16] LABS: BUN Creatinine Ratio 19.2 (10-20); Creatinine Clr Calc Pharmacy 35.2 ml/min; Est GFR (African American) 27.5; Est GFR (Non-African American) 23.7; Potassium 4.7 mmol/L (3.5-5.1)
[2019-06-23] MEDS: INSULIN GLARGINE SOLOSTAR 100 UNITS/ML 3 ML PEN SC SCH (08:12)
[2019-06-23] MEDS: INSULIN ASPART 100 UNITS/ML 3 ML PEN SC SCH ×2 (08:13→13:00)
[2019-06-23] MEDS ORDERED: CHOLECALCIFEROL 1,000 UNITS TAB PO SCH (09:00)
[2019-06-23] MEDS ORDERED: METOPROLOL SUCC 50MG EXT REL TAB PO SCH (09:00)
[2019-06-23] MEDS ORDERED: FLUDROCORTISONE ACETATE 0.1 MG TAB PO SCH (09:00)
[2019-06-23] MEDS ORDERED: DOCUSATE SODIUM 100 MG CAP PO SCH (09:00)
[2019-06-23] MEDS ORDERED: TORSEMIDE 10 MG TAB PO SCH (09:00)
[2019-06-23] MEDS ORDERED: PHARMACY GLYCEMIC MGMT CONSULT PRN (10:46)
[2019-06-23 11:26] VITALS: TEMP 98.2
[2019-06-23 12:12] LABS: Estimated Average Glucose 246 mg/dl; Hemoglobin A1C 10.2 % (4.5-5.6)
--- NOTE | 2019-06-23 14:49 | Pharmacy Report ---
Pharmacy Glycemic Short Note 2 - Date of Service June 23, 2019 - Glycemic Short BSG Results (Last 24 hours): 06/22/19 06/22/19 06/22/19 19:10 21:06 22:39 Glucose 335 H* 237 H POC Glucose 223 H 06/22/19 06/23/19 06/23/19 22:47 05:50 07:49 Glucose 157 H POC Glucose 235 H 161 H 06/23/19 11:45 Glucose POC Glucose 211 H OUTPATIENT ANTIDIABETIC REGIMEN: * PLAN FOR DISCHARGE: * He is not a candidate for PO agents due to his GFR. * I would recommend lantus 35u QAM + Novolog 8u TIDM. If he is unable to self- administer basal/bolus we could do basal monotherapy: Lantus 20u BID
--- NOTE | 2019-06-23 14:52 | Nephrology Consultation ---
Date of Consultation June 23, 2019 Assessment & Plan (1) Kezdr-of-uqsnnuq kidney injury: Patient with acute kidney injury on CKD likely hemodynamically mediated in setting of hyperglycemia and intravascular volume depletion. Baseline creatinine in the twos. Creatinine is downtrending with improvement in his blood sugar. Electrolytes are stable with no signs of volume overload. From renal standpoint patient can be discharged and he will follow-up with nephrology in 2 weeks. He will need a repeat BMP next week. (2) Hyperkalemia: Due to transcellular shifts in setting of hyperglycemia. Potassium was improved after administration of insulin. I have asked the patient to avoid high potassium foods. Please provide a list of high potassium foods and discharge. Repeat BMP next week as above. (3) Diabetes type 2, uncontrolled: Likely due to high-dose steroids. Patient has been started on Lantus per primary team. He will continue to monitor his blood sugars at home. Target A1c less than 7. (4) Hypertension: Blood pressure is above target. Recommend discussing with endocrinology to see if dose of steroids can be reduced. This is likely driving his hypertension. No changes in medication for now. (5) Adrenal insufficiency: Patient on high doses of steroids. 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 He also had hyperglycemia with blood glucose of 335. Patient was otherwise feeling well denied any shortness of breath or urinary symptoms. No recent episodes of hematuria. Blood pressure is cont rolled. He denies any vomiting or diarrhea. No NSAID use. He has chronic lower extremity swelling but better than before. This morning creatinine is down to 2.59. Allergies Allergy/AdvReac Type Severity Reaction Status Date / Time perflutren AdvReac Intermediate GI SYMPTOMS Verified 06/22/19 22:05 propylene glycol AdvReac Intermediate GI SYMPTOMS Verified 06/22/19 22:05 simvastatin AdvReac Intermediate JOINT AND Verified 06/22/19 22:06 MUSCLE PAIN Home Medications Home Medications Medication Instructions Recorded Confirmed Type cholecalciferol (vitamin D3) 1,000 unit PO QAM 04/20/18 06/22/19 History [Vitamin D3] docusate sodium [Colace] 100 mg PO AMHS 04/20/18 06/22/19 History hydrocortisone 20 mg PO DIRECTED 04/20/18 06/22/19 History pramipexole 0.5 mg tablet 0.5 mg PO DIRECTED 06/01/18 06/22/19 History lorazepam 1 mg tablet 1 mg PO HS tab 08/10/18 06/22/19 History ondansetron HCl 4 mg tablet 4 mg PO Q8H PRN tab 08/10/18 06/22/19 History acetaminophen [Tylenol Extra 500 mg PO Q6H PRN 05/22/19 06/22/19 History Strength] calcitriol 0.25 mcg PO HS 05/22/19 06/22/19 History fludrocortisone 0.1 mg PO QAM 05/22/19 06/22/19 History hydrocortisone 10 mg PO PM 05/22/19 06/22/19 History methylprednisolone sodium succ 125 mg IM DIRECTED PRN 05/22/19 06/22/19 History metoprolol succinate 50 mg PO BID 05/22/19 06/22/19 History triamcinolone acetonide 1 applic TOPICAL BID PRN 05/22/19 06/22/19 History warfarin 4.5 mg PO UD 05/22/19 06/22/19 History warfarin [Coumadin] 3 mg PO UD 05/22/19 06/22/19 History torsemide 20 mg PO [id number] 06/22/19 06/22/19 History insulin glargine [Lantus Solostar 20 unit SC BID #3 pen 06/23/19 Rx U-100 Insulin] Patient History Medical History Adrenal insufficiency S/P LEFT ADRENALECTOMY- ON CHRONIC HYDROCORTISONE Anxiety (Chronic) 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- IMMUNOTHERAPY Q 2 WEEKS (on hold) Chronic back pain Degenerative disc disease Dyslipidemia (Chronic) H/O transfusion of packed red blood cells S/P 2 UNITS (2017) History of immunotherapy (Chronic) Keytruda x 2 Cycles (had to stop after 2nd cycle) Current Opdivo q 2 weeks (currently on hold) - started 05/2017 - 04/2018 Hypertension Morbid obesity Osteoarthritis Sleep apnea CPAP HS Stage 3 chronic kidney disease Surgical History History of colonoscopy 2016 History of esophagogastroduodenoscopy (EGD) 2017 History of tooth extraction Hx of 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 Mother Colon cancer, Onset Age: 85 Chemo and Resection - Alive and well now Sister Breast cancer, Onset Age: 55 Had Radiation - Alive and well now Sister No problems noted. Sister No problems noted. Sister No problems noted. Sister No problems noted. Brother No problems noted. Son No problems noted. Son No problems noted. Social History Preferred Language: Hungarian Communication Ability: Effective Visual Impairment: Limited Hearing Ability: Hard of Hearing Harp Action Assembler Required: No Beliefs That Will Affect Care: None marital status: Single Current Living Situation: Significant Other current occupational status: retired current occupation: Retired - [employer] Feels Safe at Home: Yes Smoking Status: Never smoker Do You Dip or Chew Tobacco: No ; Second Hand Exposure: No ; Hx Alcohol Use: No Hx Substance Use: No caffeine: Yes (2 cups of coffee/day ) during the past year weight has: remained stable Review of Systems Review of Systems: All systems reviewed & are unremarkable except as noted in HPI & below Physical Exam Physical Exam: General exam: Appears comfortable, no acute distress HEENT: Pupils are equal and reactive to light Neck: No JVD, neck is supple trachea is midline Respiratory system: Clear breath sounds bilaterally. Gastrointestinal: Abdomen is soft, non distended, non tender, bowel sounds are present CVS: Regular rate and rhythm. No murmurs, rubs or gallops Musculoskeletal: No joint or muscle tenderness Extremities: Non tender, 1+ edema, peripheral pulses are present Neuro: Oriented, no tremors, no focal neurological deficits Skin: No rashes Results & Data Vital Signs (Past 12 Hours) Vital Signs Temp Pulse Pulse Resp BP Pulse Ox 06/23/19 11:26 36.8 C 70 18 166/83 H 99 06/23/19 08:47 67 06/23/19 08:01 36.6 C 69 20 155/83 H 98 06/23/19 04:20 36.5 C 73 20 131/84 96 Laboratory Results Laboratory Results - last 24 hr 06/22/19 06/22/19 06/22/19 19:10 19:10 19:10 WBC 8.00 RBC 4.56 L Hgb 12.9 L Hct 39.6 L MCV 86.8 MCH 28.3 MCHC 32.6 RDW Std Deviation 49.4 H RDW Coeff of Scottie 15.5 H Plt Count 283 MPV 9.4 Immature Gran % (Auto) 0.3 Neut % (Auto) 77.6 Lymph % (Auto) 14.5 [place] % (Auto) 5.5 Eos % (Auto) 1.8 Baso % (Auto) 0.3 Immature Gran # (Auto) 0.02 Neut # (Auto) 6.22 Lymph # (Auto) 1.16 L [place] # (Auto) 0.44 Eos # (Auto) 0.14 Baso # (Auto) 0.02 PT 25.6 H INR 2.7 H Sodium 133 L Potassium 5.8 H Chloride 102 Carbon Dioxide 23 Anion Gap 9.0 BUN 53 H Creatinine 2.96 H Est Cr Clr Drug Dosing Not Reportable Est GFR ( Amer) 23.4 Est GFR (Non-Af Amer) 20.2 BUN/Creatinine Ratio 17.9 Glucose 335 H* POC Glucose Estimat Average Glucose Hemoglobin A1c Calcium 9.0 Magnesium Beta-Hydroxybutyric Acd 06/22/19 06/22/19 06/22/19 21:06 22:39 22:47 WBC RBC Hgb Hct MCV MCH MCHC RDW Std Deviation RDW Coeff of Scottie Plt Count MPV Immature Gran % (Auto) Neut % (Auto) Lymph % (Auto) [place] % (Auto) Eos % (Auto) Baso % (Auto) Immature Gran # (Auto) Neut # (Auto) Lymph # (Auto) [place] # (Auto) Eos # (Auto) Baso # (Auto) PT INR Sodium 138 Potassium Chloride 109 H Carbon Dioxide 20 L Anion Gap 9.0 BUN 54 H Creatinine 2.72 H Est Cr Clr Drug Dosing 33.3 Est GFR ( Amer) 25.9 Est GFR (Non-Af Amer) 22.3 BUN/Creatinine Ratio 20.0 Glucose 237 H POC Glucose 223 H 235 H Estimat Average Glucose Hemoglobin A1c Calcium 9.2 Magnesium Beta-Hydroxybutyric Acd 06/22/19 06/23/19 06/23/19 23:41 05:50 05:50 WBC 5.78 RBC 4.65 L Hgb 12.9 L Hct 40.4 L MCV 86.9 MCH 27.7 MCHC 31.9 L RDW Std Deviation 50.0 H RDW Coeff of Scottie 15.6 H Plt Count 249 MPV 9.4 Immature Gran % (Auto) Neut % (Auto) Lymph % (Auto) [place] % (Auto) Eos % (Auto) Baso % (Auto) Immature Gran # (Auto) Neut # (Auto) Lymph # (Auto) [place] # (Auto) Eos # (Auto) Baso # (Auto) PT 27.2 H INR 2.9 H Sodium Potassium 5.0 Chloride Carbon Dioxide Anion Gap BUN Creatinine Est Cr Clr Drug Dosing Est GFR ( Amer) Est GFR (Non-Af Amer) BUN/Creatinine Ratio Glucose POC Glucose Estimat Average Glucose Hemoglobin A1c Calcium Magnesium Beta-Hydroxybutyric Acd 06/23/19 06/23/19 06/23/19 05:50 05:50 07:49 WBC RBC Hgb Hct MCV MCH MCHC RDW Std Deviation RDW Coeff of Scottie Plt Count MPV Immature Gran % (Auto) Neut % (Auto) Lymph % (Auto) [place] % (Auto) Eos % (Auto) Baso % (Auto) Immature Gran # (Auto) Neut # (Auto) Lymph # (Auto) [place] # (Auto) Eos # (Auto) Baso # (Auto) PT INR Sodium 136 Potassium 4.7 Chloride 106 Carbon Dioxide 23 Anion Gap 7.0 BUN 50 H Creatinine 2.59 H Est Cr Clr Drug Dosing 35.2 Est GFR ( Amer) 27.5 Est GFR (Non-Af Amer) 23.7 BUN/Creatinine Ratio 19.2 Glucose 157 H POC Glucose 161 H Estimat Average Glucose 246 Hemoglobin A1c 10.2 H Calcium 9.0 Magnesium 2.0 Beta-Hydroxybutyric Acd 06/23/19 11:45 WBC RBC Hgb Hct MCV MCH MCHC RDW Std Deviation RDW Coeff of Scottie Plt Count MPV Immature Gran % (Auto) Neut % (Auto) Lymph % (Auto) [place] % (Auto) Eos % (Auto) Baso % (Auto) Immature Gran # (Auto) Neut # (Auto) Lymph # (Auto) [place] # (Auto) Eos # (Auto) Baso # (Auto) PT INR Sodium Potassium Chloride Carbon Dioxide Anion Gap BUN Creatinine Est Cr Clr Drug Dosing Est GFR ( Amer) Est GFR (Non-Af Amer) BUN/Creatinine Ratio Glucose POC Glucose 211 H Estimat Average Glucose Hemoglobin A1c Calcium Magnesium Beta-Hydroxybutyric Acd (1) Xaccl-qg-oryvkeh kidney injury Acute renal failure type: unspecified Chronic kidney disease stage: unspecified stage Qualified Code(s): N17.9 - Acute kidney failure, unspecified; N18.9 - Chronic kidney disease, unspecified
[2019-06-23] MEDS ORDERED: HYDROCORTISONE 10 MG TAB PO SCH (15:00)
--- NOTE | 2019-06-23 15:03 | Hospitalist Progress Note ---
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 Pt was referred to ER for K: 5.8 Pseudohyperkalemia Secondary to hyperglycemia EKG sinus rhythm without acute ST changes Received Insulin 10U IV, IV Fluids Repeat BMP, normal potassium levels Monitor electrolytes (2) Acute kidney injury superimposed on CKD: HECTOR on CKD III Follow[address] Cuevas Received IV fluids Appreciate nephrology input Plan to repeat BMP as outpatient and follow-up with statement clerk upon discharge Avoid nephrotoxic agents when possible (3) Paroxysmal atrial fibrillation: Current sinus rhythm INR: 2.9 Continue metoprolol Continue Coumadin (4) Diabetes type 2, uncontrolled: A1c: 9.8 on 06/22/19 Glucose 335 in ER. Continue insulin therapy while hospitalized (5) Adrenal insufficiency: Continue fludrocortisone, hydrocortisone Given worsening hyperglycemia and increased blood pressure, plan to continue hydrocortisone 20 mg a.m., 10 mg afternoon and evening as per Sleep Manager Off notes: Unsure if patient is taking right dose as [facility] has home hydrocortisone as 20 mg 3 times daily Discussed with endocrinology, Dr.Fazeena Fonseca on 06/23/19: Plan to decrease fludrocortisone to half the home dose Needs follow-up with endocrinology upon discharge IN 3 WEEKS (6) Sleep apnea: Continue CPAP (7) Metastatic malignant melanoma: 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s with Dr Rosario Needs to follow-up with Dr. Moore and Dr. Wolf as outpatient (8) RLS (restless legs syndrome): Continue pramipexole DVT Prophylaxis On coumadin Code Status Full Code Follows with Dr Mcguire for routine care Subjective Patient is seen and examined at bedside Has intermittent hematuria which is unchanged Denies any dysuria, increased urinary frequency, fever chills Also denies any chest pain, shortness of breath, dizziness, nausea, abdominal pain Discussed with nephrology and his slip maker today Plan to be discharged home today Review of Systems Review of Systems: All systems reviewed & are unremarkable except as noted in HPI & below Physical Exam Physical Exam: Physical Exam: Vitals signs as noted above General Appearance:Morbidly Obese, no apparent distress Head: normocephalic, Atraumatic Eyes: normal inspection, EOMI Neck: supple, Trachea midline Respiratory/Chest: Normal breath sounds, CTA Cardiovascular: S1, S2, No murmur Abdomen/GI:Soft, Non tender, Bowel sounds present Extremities/Musculoskelatal:normal inspection, Trace edema Neurologic/Psych:AAOX3, grossly no focal neurological deficits Skin: normal color, warm Results & Data Vital Signs (Past 12 Hours) Vital Signs Temp Pulse Pulse Resp BP Pulse Ox 06/23/19 11:26 36.8 C 70 18 166/83 H 99 06/23/19 08:47 67 06/23/19 08:01 36.6 C 69 20 155/83 H 98 06/23/19 04:20 36.5 C 73 20 131/84 96 Laboratory Results Short CBC 06/22/19 06/23/19 Range/Units 19:10 05:50 WBC 8.00 5.78 (4.8-10.8) K/uL Hgb 12.9 L 12.9 L (14.0-18.0) g/dL Hct 39.6 L 40.4 L (42-52) % Plt Count 283 249 (130-400) K/uL BMP 06/22/19 06/22/19 06/22/19 19:10 22:39 23:41 Sodium 133 L 138 Potassium 5.8 H 5.0 Chloride 102 109 H Carbon Dioxide 23 20 L BUN 53 H 54 H Creatinine 2.96 H 2.72 H Glucose 335 H* 237 H Calcium 9.0 9.2 06/23/19 05:50 Sodium 136 Potassium 4.7 Chloride 106 Carbon Dioxide 23 BUN 50 H Creatinine 2.59 H Glucose 157 H Calcium 9.0
--- NOTE | 2019-06-23 15:39 | Discharge Summary ---
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 Pt was referred to ER for K: 5.8, Cr: 2.7. Pt denies any current complaints. Recent hospitalization 06/14/19-06/16/19 for A-fib RVR, HECTOR on CKD III, hematuria. Pt states has been feeling "fine" since discharge. Reports urine seemed to be clearing up then was dark again and then clearing. Denies gross hematuria, abdominal pain, back pain, flank pain. Denies fever/chills, diaphoresis, N/V/D/C, LIANG, dizziness, syncope, vision changes, neck pain, CP, SOB, orthopnea, palpitations, cough, sore throat, choking, otalgia, rhinorrhea, paresthesias, weakness, extremity weakness, extremity edema, rashes, dysuria, urinary retention, urinary hesitancy, urinary frequency. Admission Exam Per Admitting Provider General: no distress, obese Head: normocephalic, atraumatic Eyes: PERRL, EOM's intact, conjunctiva non-injected, anicteric ENT: normal inspection external ears, nose, mucous membranes moist Neck: supple, trachea midline Lungs: clear, no respiratory distress, no wheezing/rhonchi/rales CV: RRR, no murmur, 1+ pretibial edema Abd: normal BS, soft, non-tender Ext: no cyanosis, no calf tenderness Neuro: A&O x 3, no focal deficits noted, normal affect Skin: warm, dry Principal Diagnosis Pseudohyperkalemia Diabetes mellitus--new diagnosis Acute kidney injury Discharge Data Allergies Allergy/AdvReac Type Severity Reaction Status Date / Time perflutren AdvReac Intermediate GI SYMPTOMS Verified 06/22/19 22:05 propylene glycol AdvReac Intermediate GI SYMPTOMS Verified 06/22/19 22:05 simvastatin AdvReac Intermediate JOINT AND Verified 06/22/19 22:06 MUSCLE PAIN Consultations 06/22/19 20:19 ED Decision to Admit Stat 06/22/19 22:02 Consult Case Management - Discharge Planning Routine 06/23/19 08:36 Consult Nephrology Routine Hospital Course (1) Hyperkalemia: Patient is a 74-year-old male with 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 Pt was referred to ER for K: 5.8 Pseudohyperkalemia Secondary to hyperglycemia EKG sinus rhythm without acute ST changes Received Insulin 10U IV, IV Fluids Repeat BMP, normal potassium levels Monitor electrolytes (2) Acute kidney injury superimposed on CKD: HECTOR on CKD [address] Cuevas Received IV fluids Appreciate nephrology input Plan to repeat BMP as outpatient and follow-up with meat passer upon discharge Avoid nephrotoxic agents when possible (3) Paroxysmal atrial fibrillation: Current sinus rhythm INR: 2.9 Continue metoprolol Continue Coumadin (4) Diabetes type 2, uncontrolled: A1c: 9.8 on 06/22/19 Glucose 335 in ER. Continue insulin therapy while hospitalized (5) Adrenal insufficiency: Continue fludrocortisone, hydrocortisone Given worsening hyperglycemia and increased blood pressure, plan to continue hydrocortisone 20 mg a.m., 10 mg afternoon and evening as per Rail Director Off notes: Unsure if patient is taking right dose as [facility] has home hydrocortisone as 20 mg 3 times daily Discussed with endocrinology, Dr.Fazeena Fonseca on 06/23/19: Plan to decrease fludrocortisone to half the home dose Needs follow-up with endocrinology upon discharge IN 3 WEEKS (6) Sleep apnea: Continue CPAP (7) Metastatic malignant melanoma: 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 with Dr Rosario Needs to follow-up with Dr. Moore and Dr. Wolf as outpatient (8) RLS (restless legs syndrome): Continue pramipexole DVT Prophylaxis On coumadin Code Status Full Code Follows with Dr Mcguire for routine care Total Time Total Time Spent Total Time Spent (In Minutes): 42 minutes Total Time Includes: Examination of the Patient, Discharge Planning, Medication Reconciliation, Communication With Other Providers and Other Discharge Plan Discharge Items Patient Disposition: Home - Self-Care Reason For Visit: HYPERKALEMIA Discharge Diagnosis: Pseudohyperkalemia Diabetes mellitus--new diagnosis Acute kidney injury Activity: Resume your previous activity Non-emergency contact: Primary Care Provider, Specialist and Hazardous Materials Driver Call non-emergency contact if: you have any medication questions, your symptoms worsen, your pain is not controlled, your pain is worsening, your pain is unusual for you, your pain is concerning for you and you have a fever Follow-up/Referrals: Prasad Mcguire, [Primary Care Provider] - Diet: Carb Consistent or DM2, Heart Healthy and Low Potassium (2gm) Ambulatory Orders: Basic Metabolic Panel (Routine) Timeframe: 1 Week Location: Determined by Patient Ordered By: Estuardo Reddy Attending Provider Instructions: Follow-up with your primary care physician Dr. Prasad Mcguire on June 27, 2019 at 12:55 PM Follow-up with your meat passer Dr. Cuevas in 2 weeks as advised Follow-up with your Rail Director Dr.Fazeena Fonseca/ in 2-3 weeks as advised Discussed with your electrolytic de scaler for further adjustment of your insulin therapy for better control of your blood glucose levels. Medications Changes: Take hydrocortisone 20 mg in the morning, and 10 mg in the afternoon and 10mg at evening time Your fludrocortisone is decreased: Take half tablet of 01.mg once a day Start taking Lantus 20 units twice a day Avoid foods that contain high potassium as recommended by your meat passer. Get blood test(basic metabolic panel) in 1 week and follow-up with your meat passer with results Seek immediate medical attention if your symptoms reoccur or worsen Pending Studies at Discharge: No Stand-Alone Forms: [employer], Smoking Cessation Medications and DC Order Prescriptions: New Lantus Solostar U-100 Insulin 100 unit/mL (3 mL) Insulin Pen 20 unit SC BID Qty: 3 RF: 1 Continued pramipexole [Mirapex] 0.5 mg tablet 0.5 mg PO DIRECTED RF: 0 ondansetron HCl 4 mg tablet 4 mg PO Q8H PRN (Reason: Nausea And Vomiting) RF: 0 docusate sodium [Colace] 100 mg Capsule 100 mg PO AMHS RF: 0 cholecalciferol (vitamin D3) [Vitamin D3] 1,000 unit Capsule 1,000 unit PO QAM RF: 0 lorazepam [Ativan] 1 mg tablet 1 mg PO HS RF: 0 metoprolol succinate 50 mg Tablet Extended Release 24 Hr 50 mg PO BID RF: 0 warfarin 3 mg Tablet 4.5 mg PO UD RF: 0 warfarin [Coumadin] 3 mg tablet 3 mg PO UD RF: 0 acetaminophen [Tylenol Extra Strength] 500 mg Tablet 500 mg PO Q6H PRN (Reason: Pain) RF: 0 triamcinolone acetonide 0.1 % Cream 1 applic TOPICAL BID PRN (Reason: RASH ON LEGS, ARMS & BACK) RF: 0 methylprednisolone sodium succ 125 mg Recon Soln 125 mg IM DIRECTED PRN (Reason: EMERGENCY CASE) RF: 0 calcitriol 0.25 mcg Capsule 0.25 mcg PO HS RF: 0 torsemide 20 mg tablet 20 mg PO 6XWK RF: 0 Changed hydrocortisone 10 mg Tablet 10 mg PO UD Qty: 0 RF: 0 hydrocortisone 10 mg Tablet 20 mg PO UD Qty: 0 RF: 0 fludrocortisone 0.1 mg Tablet 0.05 mg PO QAM Qty: 0 RF: 0 Discharge Orders: Discharge Order (Routine); Ordered 06/23/19 Ordered By: Estuardo Brand/Other Patient Handouts: Diet Low Potassium Dc, ED Diet Renal Admission Data Admit Date/Time: 06/22/19 21:08 Attending Provider: Estuardo Garza Admit Provider: Rut Najera Primary Care Provider: Prasad Mcguire Other Providers: Getachew Mccall ; Dereje Cuevas Other Interventions: Discharge Summary Assessment (RN) Last Done: 06/23/19 16:15 DC Date/Time DO NOT enter until pt leaves facility: 06/23/19 16:54
[2019-06-23 15:41] VITALS: BP 140/79; O2SAT 97
[2019-06-23] MEDS ORDERED: WARFARIN SOD 3 MG TAB PO SCH (16:00)
[2019-06-23] MEDS: PRAMIPEXOLE DIHYDROCHLO 0.5 MG TAB PO SCH (16:12)
[2019-06-23 16:18] VITALS: PULSE 78
[2019-06-23] MEDS ORDERED: CALCITRIOL 0.25 MCG CAPSULE PO SCH (21:00)
[2019-06-24] MEDS ORDERED: TORSEMIDE 10 MG TAB PO SCH (09:00)
[2019-06-24] MEDS ORDERED: WARFARIN SOD 2 MG TAB PO SCH (16:00)
[2019-06-24] MEDS ORDERED: WARFARIN SOD 2.5 MG TAB PO SCH (16:00)
== END 2019-06-23 16:54 | disposition home or self-care (01) ==
LOC: ED 18:15 → 2N 18:15 → SUATTDRO 21:08 → 2N 21:31

== ENCOUNTER 2019-07-15 13:35 | Inpatient (IN) ==
[2019-07-15 14:29] LABS: Alanine Aminotransferase 27 U/L (12-78); Albumin Level 2.5 gm/dl (3.4-5.0); Aspartate Aminotransferase 18 U/L (15-37); BUN Creatinine Ratio 12.1 (10-20); Blood Urea Nitrogen 30 mg/dl (7-18); Calcium 7.9 mg/dl (8.5-10.1); Carbon Dioxide 27 mmol/L (21-32); Chloride 109 mmol/L (98-107); Est GFR (African American) 28.4; Est GFR (Non-African American) 24.5; Glucose 209 mg/dl (70-99); Magnesium 1.9 mg/dl (1.8-2.4); Potassium 4.2 mmol/L (3.5-5.1); Sodium 140 mmol/L (136-145)
--- NOTE | 2019-07-15 14:33 | XRay Report ---
XR chest 1V portable CLINICAL HISTORY: DIZZINESS COMPARISON STUDY: 07/02/2019 FINDINGS: The cardiac and mediastinal contours are normal. There is no evidence of focal pulmonary co nsolidation. There is no evidence of failure. No pleural effusions are visualized.[ IMPRESSION: No active disease in the chest. ACT 112: Negative or not required by law. Electronically signed by: Christian Al M.D. 07/15/2019 2:32 PM
[2019-07-15 14:35] LABS: Hematocrit (blood only) 22.6 % (42-52); Hemoglobin 6.9 g/dL (14.0-18.0); Mean Corpuscular Hemoglobin 26.7 pg (25-34); Mean Corpuscular Hgb Conc 30.5 g/dL (32-36); Mean Corpuscular Volume 87.6 fL (80-100); Mean Platelet Volume 8.7 fL (7.4-10.4); Platelet Count 307 K/uL (130-400); RDW Coefficient of Variation 15.4 % (11.5-14.5); RDW Standard Deviation 49.7 fL (36.4-46.3); Red Blood Count 2.58 M/uL (4.7-6.1); White Blood Count 6.59 K/uL (4.8-10.8)
[2019-07-15 14:37] LABS: Basophils # (auto) 0.02 K/uL (0-0.2); Basophils % (auto) 0.3 %; Eosinophils # (auto) 0.21 K/uL (0-0.5); Eosinophils % (auto) 3.2 %; Immature Granulocytes # (auto) 0.02 K/uL (0.00-0.02); Immature Granulocytes % (auto) 0.3 %; Lymphocytes # (auto) 1.14 K/uL (1.2-3.4); Lymphocytes % (auto) 17.3 %; Monocytes # (auto) 0.53 K/uL (0.11-0.59); Neutrophils # (auto) 4.67 K/uL (1.4-6.5); Neutrophils % (auto) 70.9 %; RBC Morphology Unremarkable
[2019-07-15 14:40] LABS: Albumin Globulin Ratio 0.7 (0.9-2); Alkaline Phosphatase 74 U/L (45-117); Bilirubin,Total 0.2 mg/dl (0.2-1); Globulin 3.4 gm/dl (2.5-4.0); Total Protein 5.9 gm/dl (6.4-8.2); Troponin I < 0.015 ng/ml (0-0.045)
[2019-07-15] MEDS ORDERED: SODIUM CHLORIDE 0.9% 250 ML IV PRN (15:22)
[2019-07-15] MEDS ORDERED: FUROSEMIDE 40 MG/4 ML VIAL IV STA (15:22)
[2019-07-15 15:28] LABS: INR 2.2 (0.9-1.1); Prothrombin Time 21.3 Seconds (9.0-12.0)
[2019-07-15] MEDS ORDERED: MoRPHine SULFATE 4 MG/ML 1 ML CARP\\VIAL IV STA (16:17)
--- NOTE | 2019-07-15 16:24 | History & Physical Report ---
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 Unknown if melena. Has not noticed bright red blood per rectum. Denies epistaxis. Persistent hematuria since surgery in 04/2019, denies increase In ER P: 94, RR: 20, BP: 189/67, 98% on room air. No leukocytosis, H/H: 6.9/22.6 (Hgb: 10.5 on 07/02/2019 and 12.9 on 07/03/2019), PLT: 307, INR: 2.2 Symptomatic anemia -Typed and crossed and 1 unit PRBC ordered to be transfused in ER -Patient given Lasix 40 mg IV -Hemoccult stool -Anemia labs -UA -Monitor H&H -Hold Coumadin -May need to consider further workup if progressive decline in Hgb (2) Paroxysmal atrial fibrillation: History of paroxysmal atrial fibrillation on Coumadin. Patient reports home pulse oximeter reading pulse up to 180s intermittently. Patient denies palpitations or chest pain. Has been having intermittent dizziness -Current sinus rhythm in ER -Continue metoprolol -INR: 2.2 -Hold Coumadin secondary to anemia (3) Stage 3 chronic kidney disease: Cr: 2.5. Stable -Monitor renal functions -Avoid nephrotoxic agents when possible (4) Cardiomyopathy: Echo 11/2017: EF: 50-55%, no wall motion abnormality -Continue torsemide (5) Diabetes type 2, uncontrolled: A1c: 10.2 in 06/2019 Following with christmas bell ringer at [facility] [place] - Dr Fonseca. Had recent medication adjustments with Lantus increased to 30 units twice daily and added Tradjenta 5 mg -Hold Tradjenta -Basal bolus insulin -Monitor BSG's (6) Adrenal insufficiency: -Continue fludrocortisone, hydrocortisone (7) Metastatic malignant melanoma: History of metastasis to adrenal gland and bladder s/p chemo, radiation and surgery. Most recent bladder resection on 05/12/[address] Moore at [facility] [place]. Follows with Dr. Rosario No further treatment (8) Sleep apnea: -CPAP at bedtime (9) RLS (restless legs syndrome): -Continue pramipexole DVT Prophylaxis -INR: 2.2, SCDs when INR is less than 2 Full Code as per discussion with pt Follows with Dr Mcguire for routine care Pt was seen and care coordinated with Dr Babcock. 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 He reports past 3 to 4 days has been having intermittent lightheadedness. Patient is poor historian. He also reports has not been feeling well past couple days but is hard to describe. He reports using his home pulse oximeter and his pulse has been varying from the 80s to the 180s. Also reports exertional shortness of breath 3 to 4 days. Patient is unsure if shortness of breath occurs when his heart rate is elevated. Patient denies feeling palpitations, chest pain. Reports since his surgery in 04/2019 he has been having dark-colored urine varying from tea colored to red. Patient denies any increased red urine. He reports he has been having chronic edema the feet is unsure if it is been worse recently. Is unsure if has had any melena or hematochezia as reports does not look at stools. Has not had any noted bright red blood per rectum. Pt reports hx anemia in past requiring blood transfusion and believes was a year ago. Patient reports chronic foot neuropathy and has been having some pain today. Denies fever/chills, diaphoresis, N/V/D/C, LIANG, syncope, vision changes, neck pain, orthopnea, cough, sore throat, choking, otalgia, rhinorrhea, abdominal pain, weakness, new rashes, dysuria, hematuria, urinary frequency. Hx colonscopy in 2017:: Diverticulosis Hx EGD in 2017: Large hiatal hernia Allergies Allergy/AdvReac Type Severity Reaction Status Date / Time perflutren AdvReac Intermediate GI SYMPTOMS Verified 07/15/19 16:07 propylene glycol AdvReac Intermediate GI SYMPTOMS Verified 07/15/19 16:07 simvastatin AdvReac Intermediate JOINT AND Verified 07/15/19 16:07 MUSCLE PAIN Home Medications Home Medications Medication Instructions Recorded Confirmed Type cholecalciferol (vitamin D3) 1,000 unit PO QAM 04/20/18 07/15/19 History [Vitamin D3] docusate sodium [Colace] 100 mg PO AMHS 04/20/18 07/15/19 History pramipexole 0.5 mg tablet 0.5 mg PO BID 06/01/18 07/15/19 History ondansetron HCl 4 mg tablet 4 mg PO Q8H PRN tab 08/10/18 07/15/19 History acetaminophen [Tylenol Extra 500 mg PO Q6H PRN 05/22/19 07/15/19 History Strength] calcitriol 0.25 mcg PO HS 05/22/19 07/15/19 History methylprednisolone sodium succ 125 mg IM DIRECTED PRN 05/22/19 07/15/19 History metoprolol succinate 50 mg PO BID 05/22/19 07/15/19 History triamcinolone acetonide 1 applic TOPICAL BID PRN 05/22/19 07/15/19 History warfarin 3 mg PO 3XWK 05/22/19 07/15/19 History warfarin [Coumadin] 4.5 mg PO 4XWK 05/22/19 07/15/19 History torsemide 20 mg PO 6XWK 06/22/19 07/15/19 History fludrocortisone 0.1 mg PO .DAILY@5AM 07/02/19 07/15/19 History hydrocortisone 10 mg PO .NOON & 3PM 07/02/19 07/15/19 History hydrocortisone 20 mg PO .DAILY@ 5AM 07/02/19 07/15/19 History insulin glargine [Lantus Solostar 30 unit SC BID 07/02/19 07/15/19 History U-100 Insulin] lorazepam 1 mg PO BID PRN 07/02/19 07/15/19 History linagliptin [Tradjenta] 5 mg PO DAILY 07/15/19 07/15/19 History Past Med/Surg History Medical History Adrenal insufficiency S/P LEFT ADRENALECTOMY- ON CHRONIC HYDROCORTISONE Anxiety (Chronic) 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- IMMUNOTHERAPY Q 2 WEEKS (on hold) Chronic back pain Degenerative disc disease Dyslipidemia (Chronic) H/O transfusion of packed red blood cells S/P 2 UNITS (2016) History of immunotherapy (Chronic) Keytruda x 2 Cycles (had to stop after 2nd cycle) Current Opdivo q 2 weeks (currently on hold) - started 05/2017 - 04/2018 Hypertension Morbid obesity Osteoarthritis Sleep apnea CPAP HS Stage 3 chronic kidney disease Surgical History History of colonoscopy 2016 History of esophagogastroduodenoscopy (EGD) 2017 History of tooth extraction Hx of 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 Mother Colon cancer, Onset Age: 85 Chemo and Resection - Alive and well now Sister Breast cancer, Onset Age: 55 Had Radiation - Alive and well now Sister No problems noted. Sister No problems noted. Sister No problems noted. Sister No problems noted. Brother No problems noted. Son No problems noted. Son No problems noted. Social History (Updated 07/15/19 @ 16:45 by Lisset Castro PA-C) Preferred Language: Latvian Communication Ability: Effective Visual Impairment: Limited Hearing Ability: Hard of Hearing Gold Leaf Roller Required: No Beliefs That Will Affect Care: None marital status: Single Current Living Situation: Significant Other current occupational status: retired current occupation: Retired - [employer] Other Information That Helps Us Care for You: No Feels Safe at Home: Yes Safety Concerns: Feels Safe At This Time Smoking Status: Never smoker Tobacco Type: smokeless tobacco ; Do You Dip or Chew Tobacco: Yes (1 can per week) ; Second Hand Exposure: No ; Hx Alcohol Use: No Hx Substance Use: No caffeine: Yes (2 cups of coffee/day ) during the past year weight has: remained stable Review of Systems Review of Systems: All systems reviewed & are unremarkable except as noted in HPI & below Physical Exam Physical Exam: General: no distress, obese Head: normocephalic, atraumatic Eyes: PERRL, EOM's intact, conjunctiva non-injected, anicteric ENT: normal inspection external ears, nose, mucous membranes moist Neck: supple, trachea midline Lungs: clear, no respiratory distress, no wheezing/rhonchi/rales CV: RRR, no murmur, 1+ pretibial edema Abd: normal BS, soft, protuberant, non-tender Ext: no cyanosis, no calf tenderness Neuro: A&O x 3, no focal deficits noted, normal affect Skin: warm, dry, +few small bullous lesions to lower legs Results & Data Vital Signs (Past 12 Hours) Vital Signs Temp Pulse Resp BP Pulse Ox 07/15/19 13:38 36.9 C 94 H 20 189/67 H 98 Laboratory Results Short CBC 07/15/19 07/15/19 Range/Units 13:55 14:44 WBC 6.59 (4.8-10.8) K/uL Hgb 6.9 L* 6.9 L* (14.0-18.0) g/dL Hct 22.6 L (42-52) % Plt Count 307 (130-400) K/uL BMP 07/15/19 13:55 Sodium 140 Potassium 4.2 Chloride 109 H Carbon Dioxide 27 BUN 30 H Creatinine 2.52 H Glucose 209 H Calcium 7.9 L Cardiac Enzymes 07/15/19 Range/Units 13:55 Troponin I < 0.015 (0-0.045) ng/ml Liver Function 07/15/19 Range/Units 13:55 Total Bilirubin 0.2 (0.2-1) mg/dl AST 18 (15-37) U/L ALT 27 (12-78) U/L Alkaline Phosphatase 74 (45-117) U/L Albumin 2.5 L (3.4-5.0) gm/dl Diagnostic Findings CXR: IMPRESSION: No active disease in the chest. ECG Rate (beats per minute): 90 Rhythm: sinus rhythm Code Status & VTE Plan VTE Prophylaxis Plan VTE Prophylaxis will be ordered: Yes Supervising Physician Co-Signing Physician Notes I, Dr. Binh Babcock, have seen and assessed the patient with physician graphic design assistant and agree with the assessment and plan and would like to comment that General: obese male Extremities: feeling pain of lower extremities Abdomen: no acute tenderness on exam Lungs: clear to auscultation bilaterally Heart: regular rate SYMPTOMATIC ANEMIA (suspected hematuria) HISTORY OF METASTATIC MELANOMA PAROXYSMAL ATRIAL FIBRILLATION ADRENAL INSUFFICIENCY CHRONIC KIDNEY DISEASE STAGE III TYPE 2 DIABETES MELLITUS WITH SHIELD OPERATOR 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 AND WITH DIABETIC NEUROPATHY RESTLESS LEGS SYNDROME SLEEP APNEA -This is a patient with history of metastatic melanoma and history of bladder resection in April 2019. since that time, patient notes he has been having tea color to dark color of urine. also on coumadin chronically for paroxysmal atrial fibrillation. given history of potential source of blood loss, and being on systemic anticoagulation, and risk factors of inadequate hemoglobin production, the patient will received 1 unit or PRBC and continue as hospital admission for telemetry monitoring -monitor renal function and blood pressure -elevated blood pressure from diabetic neuropathy pain -continue management of restless leg syndrome -continue diabetic management with insulin -agree with other assessment and plans as documented by physician graphic design assistant
[2019-07-15 16:55] LABS: Ferritin 19.7 ng/ml (8-388)
[2019-07-15 17:18] LABS: Appearance Urine Cloudy (Clear); Bilirubin Urine Negative (Negative); Blood Urine 3+ (Negative); Color Urine Red; Glucose Urine UA Negative (Negative); Ketones Urine Negative (Negative); Leukocyte Esterase Urine Negative (Negative); Nitrite Urine Negative (Negative); Protein Urine 2+ (Negative); Specific Gravity Urine 1.015 (1.000-1.030); Urobilinogen Urine Negative (Negative)
[2019-07-15 17:21] LABS: Bacteria Urine 1+ (Negative); RBC Urine >30 /hpf (0-4); WBC Urine >30 /hpf (0-5)
[2019-07-15] MEDS ORDERED: GLUCAGON FOR INJ 1 MG VIAL SQ PRN (18:17)
[2019-07-15] MEDS ORDERED: GLUCOSE 40% GEL 15 GM TUBE PO PRN (18:17)
[2019-07-15] MEDS ORDERED: DEXTROSE 50% 50 ML SYRINGE IV PRN (18:17)
[2019-07-15] MEDS ORDERED: ACETAMINOPHEN 500 MG TAB PO PRN (18:17)
[2019-07-15] MEDS ORDERED: TRIAMCINOLONE ACET 0.1% CR 15 GM TUBE TOP PRN (18:17)
[2019-07-15] MEDS ORDERED: GLUCOSE 10 TABS/TUBE PO PRN (18:17)
[2019-07-15] MEDS ORDERED: CARBOHYDRATES FOR HYPOGLYCEMIA PO PRN (18:17)
[2019-07-15] MEDS ORDERED: LORazepam 1 MG TAB PO PRN (19:18)
--- NOTE | 2019-07-15 20:31 | Emergency Department Note ---
Entered by Jhon Blas acting as a scribe for ED Provider Note CHIEF COMPLAINT: Cardiac assessment HISTORY OF PRESENT ILLNESS: The patient is a 74 year old male who presents to the Emergency Room for a cardiac assessment after he felt an intermittent irregular heart beat that he noticed today. The patient reports that for the past week or so he has had intermittent lightheadedness that seems to be most prominent later in the day. He adds that when he first wakes up he is asymptomatic until about lunch time. The patient has a history of diabetes and was recently prescribed a new sugar pill about 2 weeks ago which he believes might be causing the irregular heart beat. The patient states that last night he felt much worse than he currently does. Last night the patient's sugar was around 170. He mentioned that he takes insulin every morning and evening and he did not take the sugar pill today. The patient has a history of Afib and notes that earlier today his heart rate reached as high as the 190s. At this time the patient thought his sodium was low due to his water intake so he ate crackers which seemed to help. The patient also mentioned that he has noticed a increase lower extremity swelling accompanied with a burning pain. The patient does take steroids daily due to no longer having adrenal glands. Pt denies LOC, headache, fevers, chills, diaphoresis, visual changes, neck pain, chest pain, breathing difficulties, nausea, vomiting, abdominal pain, back pain, melena, hematochezia, urinary symptoms, numbness, weakness, lymphadenopathy, rash, or other complaints. REVIEW OF SYSTEMS: See HPI for pertinent positives and negatives. A total of ten systems were reviewed and were otherwise negative. PMHx/PSHx: Diabetes, HTN, Afib with RVR, CKD, HLD, Adrenal insufficiency, Melanoma SOCIAL HISTORY: Patient lives at home. PHYSICAL EXAM: GENERAL: Awake, alert, well-appearing, in no distress HENT: Normocephalic, atraumatic. Oropharynx unremarkable. EYES: Normal conjunctiva. Sclera non-icteric. NECK: Inspection normal. Non-tender. Supple. No nuchal rigidity. FROM. No masses. RESPIRATORY: Clear to auscultation. No wheezes. No rales. Normal respiratory effort. CARDIAC: Normal rate. Normal rhythm. No murmurs. No rubs. Extremities warm and well perfused. Pulses equal. No JVD. GI: Soft, non-distended. No tenderness to palpation. No rebound or guarding. No masses. RECTAL: Deferred. MUSCULOSKELETAL: Atraumatic. Chest examination reveals no tenderness. The back i s symmetrical on inspection without obvious abnormality. There is no CVA tenderness to palpation. No joint edema. LOWER EXTREMITIES: Calves are equal size bilaterally and non-tender. 3+ edema. No discoloration. NEURO: Normal sensorium. No sensory or motor deficits noted. SKIN: No rash or jaundice noted. EMERGENCY DEPARTMENT COURSE: 1413: Past medical records reviewed. The patient was evaluated in room B03B, and a complete history and physical examination were performed. 1436: The charge nurse informed me that the patient's hemoglobin is 6.9. 1510: I reevaluated the patient and he is resting in bed. I updated him on test results and he consented to the blood transfusion. I discussed the patient's case with Lisset PEREZ under Dr. Sadiq Collins Hospitalist. They have agreed to accept the patient for further evalution. MEDICAL DECISION MAKING: B3 Prior records/ancillary studies reviewed. Patient had mild anemia noted on previous lab testing. Nursing notes reviewed and agree them. Additional history obtained from family The patient's history was concerning for weakness, dizziness, and palpitations. Differential diagnosis: Etiologies such as metabolic, infection, hypo/hyperglycemia, electrolyte abnormalities, cardiac sources, intracerebral event, toxicologic, neurologic, as well as others were entertained. Physical examination: As above. ER treatment provided: IV Lock IV Lasix Packed red blood cell transfusion Diagnostics interpretation by me: ECG: Sinus rhythm. No ischemia. The labs revealed a significant anemia on CBC with a hemoglobin of 6.9. This wa s repeated and verified. Chemistry panel was unremarkable except for chronic kidney disease. BNP mildly elevated consistent with mild CHF. Imaging studies: Chest x-ray was negative for acute process. The patient notes having heart rates going over 160 bpm intermittently. He also has exertional shortness of breath. He has lower extremity edema and if with accurate weights were done he has put on over 15 kg in the last several weeks. He was given IV Lasix and packed red blood cell transfusion was done after consent. Further treatment in the hospital will be necessary. Consultation: A consultation was placed with the hospitalist. The case was discussed and diagnostics were reviewed. The patient was evaluated in the ER for further treatment. CRITICAL CARE I have personally spent greater than 30 minutes of critical care time in the direct management of this patient. This includes bedside care, interpretation of diagnostic studies, and testing, discussion with consultants, patient, and family members, and other required patient management activities. This 30 minutes is in excess of all separately billable procedures. IMPRESSION: Severe anemia Paroxysmal tachycardia CKD Dizziness PLAN: Being evaluated by the Hospitalist The scribe's documentation has been prepared under my direction and personally reviewed by me in its entirety. I confirm that the note above accurately reflects all work, treatment, procedures, and medical decision making performed by me. Impression & Plan Severe anemia, CKD (chronic kidney disease), Paroxysmal tachycardia, Dizziness Past Med/Surg History Medical History Adrenal insufficiency S/P LEFT ADRENALECTOMY- ON CHRONIC HYDROCORTISONE Anxiety (Chronic) 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- IMMUNOTHERAPY Q 2 WEEKS (on hold) Chronic back pain Degenerative disc disease Dyslipidemia (Chronic) H/O transfusion of packed red blood cells S/P 2 UNITS (2016) History of immunotherapy (Chronic) Keytruda x 2 Cycles (had to stop after 2nd cycle) Current Opdivo q 2 weeks (currently on hold) - started 05/2017 - 04/2018 Hypertension Morbid obesity Osteoarthritis Sleep apnea CPAP HS Stage 3 chronic kidney disease Surgical History History of colonoscopy 2016 History of esophagogastroduodenoscopy (EGD) 2017 History of tooth extraction Hx of 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 Mother Colon cancer, Onset Age: 85 Chemo and Resection - Alive and well now Sister Breast cancer, Onset Age: 55 Had Radiation - Alive and well now Sister No problems noted. Sister No problems noted. Sister No problems noted. Sister No problems noted. Brother No problems noted. Son No problems noted. Son No problems noted. 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 Other Information That Helps Us Care for You: No Feels Safe at Home: Yes Safety Concerns: Feels Safe At This Time Smoking Status: Never smoker Tobacco Type: smokeless tobacco ; Do You Dip or Chew Tobacco: Yes (1 can per week) ; Second Hand Exposure: No ; Hx Alcohol Use: No Hx Substance Use: No caffeine: Yes (2 cups of coffee/day ) during the past year weight has: remained stable Results & Data Vital Signs Vital Signs - 24 hr 07/15/19 13:38 07/15/19 16:11 07/15/19 16:15 Temperature 36.9 C Temperature Source Oral Pulse Rate 94 H 82 86 Pulse Rate from SpO2 Sensor 83 90 Respiratory Rate 20 18 26 H Respiratory Effort / Characteristics Spontaneous Blood Pressure 189/67 H 133/67 132/63 Blood Pressure Mean 107 86 72 Pulse Oximetry 98 100 97 Oxygen Delivery Method Room Air Sepsis Recent Fever Within 48 Hours No Sepsis New/Unexplained Change in Mental Status No Sepsis Action Taken by Nursing No Action Required Home Medications Current Medication List: was personally reviewed by me Laboratory Data Attestation: I reviewed the patient's lab results. Result diagrams: 07/15/19 14:44 07/15/19 13:55 Lab Results 07/15/19 07/15/19 07/15/19 Range/Units 13:55 13:55 13:55 WBC 6.59 (4.8-10.8) K/uL RBC 2.58 L (4.7-6.1) M/uL Hgb 6.9 L* (14.0-18.0) g/dL Hct 22.6 L (42-52) % MCV 87.6 (80-100) fL MCH 26.7 (25-34) pg MCHC 30.5 L (32-36) g/dL RDW Std Deviation 49.7 H (36.4-46.3) fL RDW Coeff of Scottie 15.4 H (11.5-14.5) % Plt Count 307 (130-400) K/uL MPV 8.7 (7.4-10.4) fL Immature Gran % (Auto) 0.3 % Neut % (Auto) 70.9 % Lymph % (Auto) 17.3 % [place] % (Auto) 8.0 % Eos % (Auto) 3.2 % Baso % (Auto) 0.3 % Immature Gran # (Auto) 0.02 (0.00-0.02) K/uL Neut # (Auto) 4.67 (1.4-6.5) K/uL Lymph # (Auto) 1.14 L (1.2-3.4) K/uL [place] # (Auto) 0.53 (0.11-0.59) K/uL Eos # (Auto) 0.21 (0-0.5) K/uL Baso # (Auto) 0.02 (0-0.2) K/uL RBC Morphology Unremarkable PT (9.0-12.0) Seconds INR (0.9-1.1) Sodium 140 (136-145) mmol/L Potassium 4.2 (3.5-5.1) mmol/L Chloride 109 H (98-107) mmol/L Carbon Dioxide 27 (21-32) mmol/L Anion Gap 4.0 (3-11) BUN 30 H (7-18) mg/dl Creatinine 2.52 H (0.6-1.4) mg/dl Est Cr Clr Drug Dosing Not Reportable Est GFR ( Amer) 28.4 Est GFR (Non-Af Amer) 24.5 BUN/Creatinine Ratio 12.1 (10-20) Glucose 209 H (70-99) mg/dl Calcium 7.9 L (8.5-10.1) mg/dl Magnesium 1.9 (1.8-2.4) mg/dl Iron (35-175) mcg/dl TIBC (250-450) mcg/dl Transferrin (200-360) mg/dl Ferritin (8-388) ng/ml Total Bilirubin 0.2 (0.2-1) mg/dl AST 18 (15-37) U/L ALT 27 (12-78) U/L Alkaline Phosphatase 74 (45-117) U/L Troponin I < 0.015 (0-0.045) ng/ml NT-Pro-B Natriuret Pep 1965 H (0-900) pg/ml Total Protein 5.9 L (6.4-8.2) gm/dl Albumin 2.5 L (3.4-5.0) gm/dl Globulin 3.4 (2.5-4.0) gm/dl Albumin/Globulin Ratio 0.7 L (0.9-2) TSH 2.650 (0.300-4.500) uIu/ml Blood Type Antibody Screen Crossmatch 07/15/19 07/15/19 07/15/19 Range/Units 13:55 13:55 14:44 WBC (4.8-10.8) K/uL RBC (4.7-6.1) M/uL Hgb 6.9 L* (14.0-18.0) g/dL Hct (42-52) % MCV (80-100) fL MCH (25-34) pg MCHC (32-36) g/dL RDW Std Deviation (36.4-46.3) fL RDW Coeff of Scottie (11.5-14.5) % Plt Count (130-400) K/uL MPV (7.4-10.4) fL Immature Gran % (Auto) % Neut % (Auto) % Lymph % (Auto) % [place] % (Auto) % Eos % (Auto) % Baso % (Auto) % Immature Gran # (Auto) (0.00-0.02) K/uL Neut # (Auto) (1.4-6.5) K/uL Lymph # (Auto) (1.2-3.4) K/uL [place] # (Auto) (0.11-0.59) K/uL Eos # (Auto) (0-0.5) K/uL Baso # (Auto) (0-0.2) K/uL RBC Morphology PT 21.3 H (9.0-12.0) Seconds INR 2.2 H (0.9-1.1) Sodium (136-145) mmol/L Potassium (3.5-5.1) mmol/L Chloride (98-107) mmol/L Carbon Dioxide (21-32) mmol/L Anion Gap (3-11) BUN (7-18) mg/dl Creatinine (0.6-1.4) mg/dl Est Cr Clr Drug Dosing Est GFR ( Amer) Est GFR (Non-Af Amer) BUN/Creatinine Ratio (10-20) Glucose (70-99) mg/dl Calcium (8.5-10.1) mg/dl Magnesium (1.8-2.4) mg/dl Iron 17 L (35-175) mcg/dl TIBC 293 (250-450) mcg/dl Transferrin 242 (200-360) mg/dl Ferritin 19.7 (8-388) ng/ml Total Bilirubin (0.2-1) mg/dl AST (15-37) U/L ALT (12-78) U/L Alkaline Phosphatase (45-117) U/L Troponin I (0-0.045) ng/ml NT-Pro-B Natriuret Pep (0-900) pg/ml Total Protein (6.4-8.2) gm/dl Albumin (3.4-5.0) gm/dl Globulin (2.5-4.0) gm/dl Albumin/Globulin Ratio (0.9-2) TSH (0.300-4.500) uIu/ml Blood Type Antibody Screen Crossmatch 07/15/19 Range/Units 14:44 WBC (4.8-10.8) K/uL RBC (4.7-6.1) M/uL Hgb (14.0-18.0) g/dL Hct (42-52) % MCV (80-100) fL MCH (25-34) pg MCHC (32-36) g/dL RDW Std Deviation (36.4-46.3) fL RDW Coeff of Scottie (11.5-14.5) % Plt Count (130-400) K/uL MPV (7.4-10.4) fL Immature Gran % (Auto) % Neut % (Auto) % Lymph % (Auto) % [place] % (Auto) % Eos % (Auto) % Baso % (Auto) % Immature Gran # (Auto) (0.00-0.02) K/uL Neut # (Auto) (1.4-6.5) K/uL Lymph # (Auto) (1.2-3.4) K/uL [place] # (Auto) (0.11-0.59) K/uL Eos # (Auto) (0-0.5) K/uL Baso # (Auto) (0-0.2) K/uL RBC Morphology PT (9.0-12.0) Seconds INR (0.9-1.1) Sodium (136-145) mmol/L Potassium (3.5-5.1) mmol/L Chloride (98-107) mmol/L Carbon Dioxide (21-32) mmol/L Anion Gap (3-11) BUN (7-18) mg/dl Creatinine (0.6-1.4) mg/dl Est Cr Clr Drug Dosing Est GFR ( Amer) Est GFR (Non-Af Amer) BUN/Creatinine Ratio (10-20) Glucose (70-99) mg/dl Calcium (8.5-10.1) mg/dl Magnesium (1.8-2.4) mg/dl Iron (35-175) mcg/dl TIBC (250-450) mcg/dl Transferrin (200-360) mg/dl Ferritin (8-388) ng/ml Total Bilirubin (0.2-1) mg/dl AST (15-37) U/L ALT (12-78) U/L Alkaline Phosphatase (45-117) U/L Troponin I (0-0.045) ng/ml NT-Pro-B Natriuret Pep (0-900) pg/ml Total Protein (6.4-8.2) gm/dl Albumin (3.4-5.0) gm/dl Globulin (2.5-4.0) gm/dl Albumin/Globulin Ratio (0.9-2) TSH (0.300-4.500) uIu/ml Blood Type A Positive Antibody Screen NEGATIVE Crossmatch See Detail Administered Medications Discontinued Medications Furosemide (Lasix) 40 mg IV NOW STA Stop: 07/15/19 15:23 Last Admin: 07/15/19 16:19 Dose: 40 mg Documented by: [id number] Morphine Sulfate (Morphine Sulfate) 4 mg IV NOW STA Stop: 07/15/19 16:18 Last Admin: 07/15/19 16:22 Dose: 4 mg Documented by: [id number] Imaging Data Radiologist's Impression: Radiology results as stated below per my review and the radiologist's interpretation: XR chest 1V portable CLINICAL HISTORY: DIZZINESS COMPARISON STUDY: 07/02/2019 FINDINGS: The cardiac and mediastinal contours are normal. There is no evidence of focal pulmonary consolidation. There is no evidence of failure. No pleural effusions are visualized.[ IMPRESSION: No active disease in the chest. ACT 112: Negative or not required by law. Electronically signed by: Christian Al M.D. 07/15/2019 2:32 PM ECG Data Attestation: I personally reviewed and interpreted this ECG as follows: Indication: + palpitations Rate (beats per minute): 90 Rhythm: normal sinus ECG Intervals/blocks: + Normal QRS ECG Whitman: + Normal ECG ST segments: no ST depression and no ST elevation ECG Findings: no PACs and no PVCs Blood Pressure Blood Pressure Findings: Elevated blood pressure Blood Pressure Disposition: further management by hospitalist Discharge Plan Visit Data *Final* Discharge Date/Time: 07/15/19 17:33 Chief Complaint: Cardiac Assessment Stated Complaint: AFIB ED Provider: Varinder Bloom Discharge Problem: Severe anemia, CKD (chronic kidney disease), Paroxysmal tachycardia, Dizziness Patient Disposition: Admitted As Inpatient Discharge Instructions Interventions: ED Discharge Assessment Last Done: 07/15/19 17:33 Discharge Problem: CKD (chronic kidney disease) Qualifiers: Chronic kidney disease stage: unspecified stage Qualified Code(s): N18.9 - Chronic kidney disease, unspecified The scribe's documentation has been prepared under my direction and personally reviewed by me in its entirety. I confirm that the note above accurately reflects all work, treatment, procedures, and medical decision making performed by me.
[2019-07-15] MEDS: INSULIN ASPART 100 UNITS/ML 3 ML PEN SC SCH (20:45)
[2019-07-15] MEDS: INSULIN GLARGINE SOLOSTAR 100 UNITS/ML 3 ML PEN SC SCH (20:46)
[2019-07-15] MEDS: DOCUSATE SODIUM 100 MG CAP PO SCH (20:47)
[2019-07-15] MEDS ORDERED: CALCITRIOL 0.25 MCG CAPSULE PO SCH (21:00)
[2019-07-15 21:43] LABS: Hematocrit (blood only) 25.7 % (42-52); Hemoglobin 7.8 g/dL (14.0-18.0)
[2019-07-16] MEDS ORDERED: TORSEMIDE 20 MG TAB PO SCH (05:00)
[2019-07-16] MEDS ORDERED: HYDROCORTISONE 10 MG TAB PO SCH (05:00)
[2019-07-16] MEDS ORDERED: FLUDROCORTISONE ACETATE 0.1 MG TAB PO SCH (05:00)
[2019-07-16 06:34] LABS: Hematocrit (blood only) 26.9 % (42-52); Mean Corpuscular Hgb Conc 29.7 g/dL (32-36); Mean Corpuscular Volume 87.3 fL (80-100); Mean Platelet Volume 8.5 fL (7.4-10.4); Nucleated RBC # (auto) 0.04 K/uL (0-0); Nucleated RBC % (auto) 0.5 %; Platelet Count 282 K/uL (130-400); RDW Coefficient of Variation 15.4 % (11.5-14.5); RDW Standard Deviation 49.6 fL (36.4-46.3); Red Blood Count 3.08 M/uL (4.7-6.1); White Blood Count 7.14 K/uL (4.8-10.8)
[2019-07-16 06:44] LABS: Prothrombin Time 19.6 Seconds (9.0-12.0)
[2019-07-16 07:07] LABS: BUN Creatinine Ratio 11.1 (10-20); Calcium 8.4 mg/dl (8.5-10.1); Creatinine Clr Calc Pharmacy 35.1 ml/min; Est GFR (African American) 26.7
[2019-07-16] MEDS: PRAMIPEXOLE DIHYDROCHLO 0.5 MG TAB PO SCH ×2 (07:54→15:28)
[2019-07-16] MEDS: METOPROLOL SUCC 50MG EXT REL TAB PO SCH ×2 (07:55→15:29)
[2019-07-16] MEDS: DOCUSATE SODIUM 100 MG CAP PO SCH (07:55)
[2019-07-16] MEDS: INSULIN ASPART 100 UNITS/ML 3 ML PEN SC SCH ×2 (07:56→11:44)
[2019-07-16] MEDS ORDERED: CHOLECALCIFEROL 1,000 UNITS TAB PO SCH (09:00)
[2019-07-16] MEDS: INSULIN GLARGINE SOLOSTAR 100 UNITS/ML 3 ML PEN SC SCH (09:40)
[2019-07-16 11:17] VITALS: TEMP 97.9; O2SAT 97
[2019-07-16] MEDS: HYDROCORTISONE 10 MG TAB PO SCH ×2 (11:44→15:28)
--- NOTE | 2019-07-16 15:28 | Hospitalist Progress Note ---
Date of Service July 16, 2019 Assessment & Plan (1) Anemia: HEMATURIA -This is a patient who had decline of hemoglobin with Hgb: 10.5 on 07/02/2019 and 12.9 on 07/03/2019, and presented to the hospital on 07/15/19 with dizziness x 3 to 4 days and shortness of breath with exertion with hemoglobin 6.9. Patient also follows with outpatient urology and and has chronic hematuria and also on coumadin because of history of paroxysmal atrial fibrillation -1 unit of PRBC transfused and Hgb 7.8 at night of 07/15/19 Hemoglobin remains stable as of 07/16/19 as 8 -No other sources of bleeding from other body orifices Because patient has been in sinus rhythm during hospital stay and hematuria is an ongoing issue, he has been asked to stop coumadin. -Patient has close followup with primary care and specialty care. Outpatient follow up of anemia Upcoming appointments on [facility] system 07/19/2019 8:00 AM Provider [facility] [place] [facility], [place] 07/19/2019 1:00 PM Provider James Harvey MD Department Family [facility] 07/21/2019 8:30 AM Provider Chair 11 Hem Onc [facility] Department Hematology/Oncology Treatment, [place] 07/28/2019 7:45 AM Provider Mathieu Culp MD Department Hematology/Oncology [facility] 07/29/2019 11:20 AM Provider Ekta Rosa MD Department Nephrology, [facility] (2) Paroxysmal atrial fibrillation: History of paroxysmal atrial fibrillation on Coumadin. Patient reports home pulse oximeter reading pulse up to 180s intermittently. Patient denies palpitations or chest pain. Has been having intermittent dizziness -Current sinus rhythm in ER -Because patient has been in sinus rhythm during hospital stay and hematuria is an ongoing issue, he has been asked to stop coumadin. (3) Metastatic malignant melanoma: -History of metastasis to adrenal gland and bladder s/p chemo, radiation and surgery. Most recent bladder resection on 05/12/[address] Moore at [facility]. Follows with Dr. Rosario -the side effects of treatment including bladder surgeries with lingering hematuria. 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 Had recent medication adjustments with Lantus increased to 30 units twice daily and added Tradjenta 5 mg -patient should continue outpatient diabetes regimen and outpatient diabetes medication adjustments as needed given chronic steroid use fro adrenal insufficiency (8) RLS (restless legs syndrome): -Continue pramipexole (9) Sleep apnea: -CPAP at bedtime Full Code as per discussion with pt Discharge Diagnosis: SYMPTOMATIC ANEMIA from HEMATURIA HISTORY OF METASTATIC MELANOMA PAROXYSMAL ATRIAL FIBRILLATION ADRENAL INSUFFICIENCY CHRONIC KIDNEY DISEASE STAGE III TYPE 2 DIABETES MELLITUS WITH [facility] 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 AND WITH DIABETIC NEUROPATHY RESTLESS LEGS SYNDROME SLEEP APNEA Subjective patient's urine light brown. Because patient has been in sinus rhythm during hospital stay and hematuria is an ongoing issue, he has been asked to stop coumadin when discharged. no dizziness today. no lightheadedness. breathing on room air. no chest pain. no palpitations. no headache. Review of Systems Review of Systems: All systems reviewed & are unremarkable except as noted in HPI & below Physical Exam Constitutional: + obese and comfortable Eyes: PERRL, conjunctivae normal, anicteric sclerae EOM intact bilaterally ENMT: external ear and nose normal, oropharynx normal Neck: normal visual inspection Respiratory: normal respiratory effort, lungs clear to auscultation Cardiovascular: Rate/Rhythm: regular rate and regular rhythm Gastrointestinal (Abdomen): normal bowel sounds, soft, nontender, no hepatosplenomegaly Musculoskeletal: Head/Neck/Chest: normocephalic and head atraumatic Neurologic: PERRL, EOMI, accommodation nl, no face palsy, no dysarthria CN's II-XI intact bilaterally Psychiatric: A+Ox3, euthymic affect Results & Data Vital Signs (Past 12 Hours) Vital Signs Temp Pulse Pulse Resp BP Pulse Ox 07/16/19 11:16 36.6 C 81 18 137/55 L 97 07/16/19 08:32 78 07/16/19 07:05 36.8 C 78 20 132/57 L 94
--- NOTE | 2019-07-16 15:37 | Discharge Summary ---
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 He reports past 3 to 4 days has been having intermittent lightheadedness. Patient is poor historian. He also reports has not been feeling well past couple days but is hard to describe. He reports using his home pulse oximeter and his pulse has been varying from the 80s to the 180s. Also reports exertional shortness of breath 3 to 4 days. Patient is unsure if shortness of breath occurs when his heart rate is elevated. Patient denies feeling palpitations, chest pain. Reports since his surgery in 04/2019 he has been having dark-colored urine varying from tea colored to red. Patient denies any increased red urine. He reports he has been having chronic edema the feet is unsure if it is been worse recently. Is unsure if has had any melena or hematochezia as reports does not look at stools. Has not had any noted bright red blood per rectum. Pt reports hx anemia in past requiring blood transfusion and believes was a year ago. Patient reports chronic foot neuropathy and has been having some pain today. Denies fever/chills, diaphoresis, N/V/D/C, LIANG, syncope, vision changes, neck pain, orthopnea, cough, sore throat, choking, otalgia, rhinorrhea, abdominal pain, weakness, new rashes, dysuria, hematuria, urinary frequency. Hx colonscopy in 2017:: Diverticulosis Hx EGD in 2017: Large hiatal hernia Admission Exam Per Admitting Provider General: no distress, obese Head: normocephalic, atraumatic Eyes: PERRL, EOM's intact, conjunctiva non-injected, anicteric ENT: normal inspection external ears, nose, mucous membranes moist Neck: supple, trachea midline Lungs: clear, no respiratory distress, no wheezing/rhonchi/rales CV: RRR, no murmur, 1+ pretibial edema Abd: normal BS, soft, protuberant, non-tender Ext: no cyanosis, no calf tenderness Neuro: A&O x 3, no focal deficits noted, normal affect Skin: warm, dry, +few small bullous lesions to lower legs Principal Diagnosis SYMPTOMATIC ANEMIA from HEMATURIA HISTORY OF METASTATIC MELANOMA PAROXYSMAL ATRIAL FIBRILLATION ADRENAL INSUFFICIENCY CHRONIC KIDNEY DISEASE STAGE III TYPE 2 DIABETES MELLITUS WITH LONGTERM 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 AND WITH DIABETIC NEUROPATHY RESTLESS LEGS SYNDROME SLEEP APNEA Discharge Exam Constitutional + obese and comfortable Eyes PERRL, conjunctivae normal, anicteric sclerae EOM intact bilaterally ENMT external ear and nose normal, oropharynx normal Neck normal visual inspection Respiratory normal respiratory effort, lungs clear to auscultation Cardiovascular Rate/Rhythm: regular rate and regular rhythm Gastrointestinal (Abdomen) normal bowel sounds, soft, nontender, no hepatosplenomegaly Musculoskeletal Head/Neck/Chest: normocephalic and head atraumatic Neurologic PERRL, EOMI, accommodation nl, no face palsy, no dysarthria CN's II-XI intact bilaterally Psychiatric A+Ox3, euthymic affect Discharge Data Allergies Allergy/AdvReac Type Severity Reaction Status Date / Time perflutren AdvReac Intermediate GI SYMPTOMS Verified 07/15/19 16:07 propylene glycol AdvReac Intermediate GI SYMPTOMS Verified 07/15/19 16:07 simvastatin AdvReac Intermediate JOINT AND Verified 07/15/19 16:07 MUSCLE PAIN Consultations 07/15/19 15:22 ED Decision to Admit Stat 07/15/19 18:17 Consult Case Management - Discharge Planning Routine Hospital Course (1) Anemia: HEMATURIA -This is a patient who had decline of hemoglobin with Hgb: 10.5 on 07/02/2019 and 12.9 on 07/03/2019, and presented to the hospital on 07/15/19 with dizziness x 3 to 4 days and shortness of breath with exertion with hemoglobin 6.9. Patient also follows with outpatient urology and and has chronic hematuria and also on coumadin because of history of paroxysmal atrial fibrillation -1 unit of PRBC transfused and Hgb 7.8 at night of 07/15/19 Hemoglobin remains stable as of 07/16/19 as 8 -No other sources of bleeding from other body orifices Because patient has been in sinus rhythm during hospital stay and hematuria is an ongoing issue, he has been asked to stop coumadin. -Patient has close followup with primary care and specialty care. Outpatient follow up of anemia Upcoming appointments on [employer] system 07/19/2019 8:00 AM Provider [facility] [place] 07/19/2019 1:00 PM Provider James Harvey MD Department [facility] 07/21/2019 8:30 AM Provider Chair 11 Hem Onc [facility] Department Hematology/Oncology Treatment, [place] 07/28/2019 7:45 AM Provider Mathieu Culp MD Department Hematology/Oncology [facility] 07/29/2019 11:20 AM Provider Ekta Rosa MD Department Nephrology, [facility] (2) Paroxysmal atrial fibrillation: History of paroxysmal atrial fibrillation on Coumadin. Patient reports home pulse oximeter reading pulse up to 180s intermittently. Patient denies palpitations or chest pain. Has been having intermittent dizziness -Current sinus rhythm in ER -Because patient has been in sinus rhythm during hospital stay and hematuria is an ongoing issue, he has been asked to stop coumadin. (3) Metastatic malignant melanoma: -History of metastasis to adrenal gland and bladder s/p chemo, radiation and surgery. Most recent bladder resection on 05/12/[address] Moore at [facility] [place]. Follows with Dr. Rosario -the side effects of treatment including bladder surgeries with lingering hematuria. patient follows with outpatient urology of [place] (4) Cardiomyopathy: Echo 11/2017: EF: 50-55%, no wall motion abnormality -Continue torsemide (5) Stage 3 chronic kidney disease: -renal function stable (6) Adrenal insufficiency: -Continue fludrocortisone, hydrocortisone (7) Diabetes type 2, uncontrolled: TYPE 2 DIABETES MELLITUS WITH TSA SCREENER 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 AND WITH DIABETIC NEUROPATHY A1c: 10.2 in 06/2019 Following with head pumper at [facility] [place] - Dr Fonseca. Had recent medication adjustments with Lantus increased to 30 units twice daily and added Tradjenta 5 mg -patient should continue outpatient diabetes regimen and outpatient diabetes medication adjustments as needed given chronic steroid use fro adrenal insuf ficiency (8) RLS (restless legs syndrome): -Continue pramipexole (9) Sleep apnea: -CPAP at bedtime Full Code as per discussion with pt Discharge Diagnosis: SYMPTOMATIC ANEMIA from HEMATURIA HISTORY OF METASTATIC MELANOMA PAROXYSMAL ATRIAL FIBRILLATION ADRENAL INSUFFICIENCY CHRONIC KIDNEY DISEASE STAGE III TYPE 2 DIABETES MELLITUS WITH LONGTERM 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 AND WITH DIABETIC NEUROPATHY RESTLESS LEGS SYNDROME SLEEP APNEA Total Time Total Time Spent Total Time Spent (In Minutes): 40 Total Time Includes: Examination of the Patient, Discharge Planning, Medication Reconciliation and Communication With Other Providers Discharge Plan Discharge Items Patient Disposition: Home - Self-Care Reason For Visit: ANEMIA Discharge Diagnosis: SYMPTOMATIC ANEMIA (from HEMATURIA) HISTORY OF METASTATIC MELANOMA PAROXYSMAL ATRIAL FIBRILLATION ADRENAL INSUFFICIENCY CHRONIC KIDNEY DISEASE STAGE III TYPE 2 DIABETES MELLITUS WITH LONGTERM 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 AND WITH DIABETIC NEUROPATHY RESTLESS LEGS SYNDROME SLEEP APNEA Condition on Discharge: Good Activity: Per Instructions section Non-emergency contact: Primary Care Provider and Specialist Call non-emergency contact if: you have any medication questions Follow-up/Referrals: Prasad Mcguire DO [Primary Care Provider] - Diet: Carb Consistent or DM2 and Heart Healthy Addtl Attending Provider Instructions: This is a patient who had decline of hemoglobin with Hgb: 10.5 on 07/02/2019 and 12.9 on 07/03/2019, and presented to the hospital on 07/15/19 with dizziness x 3 to 4 days and shortness of breath with exertion with hemoglobin 6.9. Patient also follows with outpatient urology and and has chronic hematuria and also on coumadin because of history of paroxysmal atrial fibrillation 1 unit of PRBC transfused and Hgb 7.8 at night of 07/15/19 Hemoglobin remains stable as of 07/16/19 as 8 No other sources of bleeding from other body orifices Because patient has been in sinus rhythm during hospital stay and hematuria is an ongoing issue, he has been asked to stop coumadin. Patient has close followup with primary care and specialty care. Outpatient follow up of anemia Upcoming appointments on [employer] system 07/19/2019 8:00 AM Provider [facility] [place] Department Pharmacy, [place] 07/19/2019 1:00 PM Provider James Harvey MD Department Family Practice [facility] 07/21/2019 8:30 AM Provider Chair 11 Hem Onc [facility] Department Hematology/Oncology Treatment, [place] 07/28/2019 7:45 AM Provider Mathieu Culp MD Department Hematology/Oncology [facility] 07/29/2019 11:20 AM Provider Ekta Rosa MD Department Nephrology, [facility] Pending Studies at Discharge: No Stand-Alone Forms: [facility] [employer], Smoking Cessation Medications and DC Order Prescriptions: Continued pramipexole [Mirapex] 0.5 mg tablet 0.5 mg PO BID RF: 0 ondansetron HCl 4 mg tablet 4 mg PO Q8H PRN (Reason: Nausea And Vomiting) RF: 0 docusate sodium [Colace] 100 mg Capsule 100 mg PO AMHS RF: 0 cholecalciferol (vitamin D3) [Vitamin D3] 1,000 unit Capsule 1,000 unit PO QAM RF: 0 metoprolol succinate 50 mg Tablet Extended Release 24 Hr 50 mg PO BID RF: 0 acetaminophen [Tylenol Extra Strength] 500 mg Tablet 500 mg PO Q6H PRN (Reason: Pain) RF: 0 triamcinolone acetonide 0.1 % Cream 1 applic TOPICAL BID PRN (Reason: RASH ON LEGS, ARMS & BACK) RF: 0 methylprednisolone sodium succ 125 mg Recon Soln 125 mg IM DIRECTED PRN (Reason: EMERGENCY CASE) RF: 0 calcitriol 0.25 mcg Capsule 0.25 mcg PO HS RF: 0 torsemide 20 mg tablet 20 mg PO 6XWK RF: 0 hydrocortisone 10 mg tablet 10 mg PO .NOON & 3PM RF: 0 hydrocortisone 10 mg tablet 20 mg PO .DAILY@ 5AM RF: 0 fludrocortisone 0.1 mg tablet 0.1 mg PO .DAILY@5AM RF: 0 lorazepam 1 mg Tablet 1 mg PO BID PRN (Reason: Anxiety) RF: 0 Lantus Solostar U-100 Insulin 100 unit/mL (3 mL) insulin pen 30 unit SC BID RF: 0 Tradjenta 5 mg tablet 5 mg PO DAILY RF: 0 Discontinued warfarin 3 mg Tablet 3 mg PO 3XWK RF: 0 warfarin [Coumadin] 3 mg tablet 4.5 mg PO 4XWK RF: 0 Discharge Orders: Discharge Order (Routine); Ordered 07/16/19 Ordered By: Binh Babcock Admission Data Admit Date/Time: 07/15/19 16:23 Attending Provider: Binh Babcock Admit Provider: Binh Babcock Primary Care Provider: Prasad Mcguire Other Providers: Binh Babcock
[2019-07-16 15:41] VITALS: BP 127/53; PULSE 82
--- NOTE | 2019-07-27 08:16 | Coding Query ---
ANEMIA To promote full compliance with coding requirements relating to patient care, physician participation is requested in all cases of underwear cutter uncertainty. Please assist us with the question(s) below: Coding Question(s): The record reflects the following diagnosis: anemia due to hematuria Please specify the known or suspected type by placing an "X" within the parenthesis (x). If other, please document type. Examples are: ( x) Acute blood loss anemia ( ) Acute Postoperative blood loss anemia ( ) Acute postoperative anemia due to dilutional fluids ( ) Chronic blood loss anemia ( ) Anemia of chronic disease ( ) Aplastic anemia ( ) Anemia due to renal disease ( ) Anemia in neoplastic disease ( ) Iron deficient anemia ( ) Anemia, unspecified or other ( ) Other: (please specify) ( ) Unable to determine Also, please clarify if the hematuria was: (select all that apply) (x ) a complication of the previous bladder surgery on 05/12/19 ( ) not a complication of surgery ( ) other cause, if known. (Please specify) ( x ) due to extrinsic circulating anticoagulants (Coumadin use) ( ) unable to clinically determine Thank you for your time, MAYDA Simon, [facility]
== END 2019-07-16 16:00 | disposition home or self-care (01) | DRG 812 ==
LOC: ED 13:35 → 2E 16:23

== ENCOUNTER 2019-07-17 10:59 | Inpatient (IN) ==
[2019-07-17] MEDS ORDERED: LORazepam 1 MG TAB PO PRN (12:03)
[2019-07-17] MEDS ORDERED: ACETAMINOPHEN 325 MG TAB PO PRN (12:07)
[2019-07-17] MEDS ORDERED: DEXTROSE 50% 50 ML SYRINGE IV PRN (12:08)
[2019-07-17] MEDS ORDERED: GLUCOSE 40% GEL 15 GM TUBE PO PRN (12:08)
[2019-07-17] MEDS ORDERED: GLUCAGON FOR INJ 1 MG VIAL SQ PRN (12:08)
[2019-07-17] MEDS ORDERED: GLUCOSE 10 TABS/TUBE PO PRN (12:08)
[2019-07-17] MEDS ORDERED: CARBOHYDRATES FOR HYPOGLYCEMIA PO PRN (12:08)
[2019-07-17 12:39] LABS: Basophils # (auto) 0.03 K/uL (0-0.2); Basophils % (auto) 0.4 %; Eosinophils # (auto) 0.22 K/uL (0-0.5); Eosinophils % (auto) 3.1 %; Hemoglobin 7.8 g/dL (14.0-18.0); Immature Granulocytes # (auto) 0.01 K/uL (0.00-0.02); Immature Granulocytes % (auto) 0.1 %; Lymphocytes # (auto) 0.93 K/uL (1.2-3.4); Mean Corpuscular Hemoglobin 26.4 pg (25-34); Mean Corpuscular Volume 87.8 fL (80-100); Monocytes # (auto) 0.43 K/uL (0.11-0.59); Neutrophils # (auto) 5.52 K/uL (1.4-6.5); Neutrophils % (auto) 77.4 %; Platelet Count 316 K/uL (130-400); RDW Coefficient of Variation 15.4 % (11.5-14.5); RDW Standard Deviation 49.7 fL (36.4-46.3); Red Blood Count 2.96 M/uL (4.7-6.1); White Blood Count 7.14 K/uL (4.8-10.8)
[2019-07-17 12:51] LABS: INR 1.3 (0.9-1.1); Prothrombin Time 12.8 Seconds (9.0-12.0)
[2019-07-17 12:57] LABS: Albumin Level 2.9 gm/dl (3.4-5.0); BUN Creatinine Ratio 14.2 (10-20); Calcium 8.8 mg/dl (8.5-10.1); Creatinine Clr Calc Pharmacy 37.7 ml/min; Est GFR (African American) 28.8; Est GFR (Non-African American) 24.8; Potassium 4.2 mmol/L (3.5-5.1)
[2019-07-17 12:59] LABS: Albumin Globulin Ratio 0.8 (0.9-2); Bilirubin,Total 0.3 mg/dl (0.2-1); Globulin 3.8 gm/dl (2.5-4.0); Total Protein 6.7 gm/dl (6.4-8.2)
[2019-07-17 13:01] LABS: RBC Morphology Unremarkable
[2019-07-17] MEDS: HYDROCORTISONE 10 MG TAB PO SCH ×3 (13:35→15:05)
[2019-07-17] MEDS: ERTAPENEM SODIUM 1,000 MG in SODIUM CHLORIDE 0.9% 50 ML IV SCH (13:35)
[2019-07-17] MEDS: INSULIN ASPART 100 UNITS/ML 3 ML PEN SC SCH ×3 (13:38→21:05)
--- NOTE | 2019-07-17 15:16 | History & Physical Report ---
Date of Service July 17, 2019 Assessment & Plan (1) UTI due to extended-spectrum beta lactamase (ESBL) producing Escherichia coli: -74 year old male who was discharged on 07/16/19 after hospitalization for blood transfusion and chronic hematuria and asked to return to the hospital for admission because of previous urine culture growing Escherichia coli ESBL -started on Ertapenem, follow blood cultures ANEMIA from HEMATURIA HISTORY OF METASTATIC MELANOMA PAROXYSMAL ATRIAL FIBRILLATION -History of metastasis to adrenal gland and bladder s/p chemo, radiation and surgery. Most recent bladder resection on 05/12/[address] Moore at [facility] in [place] and with oncology locally at [facility] -since bladder resection, patient has had chronic hematuria -previous hospital admission on 07/15/19 with dizziness x 3 to 4 days and shortness of breath with exertion with hemoglobin 6.9; 1 unit of PRBC transfused and Hgb 7.8 at night of 07/15/19; stable as of 07/16/19 as 8 -No other sources of bleeding from other body orifices -was told to stop coumadin for paroxysmal atrial fibrillation on last hospitalization because of hematuria and because heart rhythm was sinus on telemetry monitoring -hold coumadin for now, hemoglobin stable as 7.8 ADRENAL INSUFFICIENCY -Continue fludrocortisone, hydrocortisone CHRONIC KIDNEY DISEASE STAGE III -monitor renal function Cardiomyopathy -Echo 11/2017: EF: 50-55%, no wall motion abnormality -Continue torsemide TYPE 2 DIABETES MELLITUS WITH CARE HOME 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 AND WITH DIABETIC NEUROPATHY -HbA1c: 10.2 in 06/2019 -Following with roaster operator at [facility] - Dr Fonseca. Had recent medication adjustments with Lantus increased to 30 units twice daily and added Tradjenta 5 mg -hold Tradjenta while inpatient, continue long acting insulin, sliding scale insulin with meals -patient should continue outpatient diabetes regimen and outpatient diabetes medication adjustments as needed given chronic steroid use fro adrenal insufficiency RESTLESS LEGS SYNDROME -Continue pramipexole SLEEP APNEA -CPAP at bedtime DVT prophylaxis: SCDs Upcoming appointments on [employer] system 07/19/2019 8:00 AM Provider [facility] [place] Department Pharmacy, [place] 07/19/2019 1:00 PM Provider James Harvey MD Department [facility] 07/21/2019 8:30 AM Provider Chair 11 Hem Onc [facility] Department Hematology/Oncology Treatment, [place] 07/28/2019 7:45 AM Provider Mathieu Culp MD Department Hematology/Oncology [facility] 07/29/2019 11:20 AM Provider Ekta Rosa MD Department Nephrology, [facility] Full Code son [phone] History of Present Illness 74 year old male who was discharged on 07/16/19 after hospitalization for blood transfusion and chronic hematuria and asked to return to the hospital for admission because of previous urine culture growing Escherichia coli ESBL; started on Ertapenem, follow blood cultures. Patient reported that when he was home since 07/16/19 he was feeling better from previous hospital presentation. denied fevers or chills. no palpitations. no chest pain. no abdominal pain. no dizziness. no lightheadedness Family History: Mother: Colon cancer, Onset Age: 85; Chemo and Resection - Alive and well now Sister: Breast cancer, Onset Age: 55 Primary Care Provider: Prasad Mcguire DO Allergies Allergy/AdvReac Type Severity Reaction Status Date / Time perflutren AdvReac Intermediate GI SYMPTOMS Verified 07/15/19 16:07 propylene glycol AdvReac Intermediate GI SYMPTOMS Verified 07/15/19 16:07 simvastatin AdvReac Intermediate JOINT AND Verified 07/15/19 16:07 MUSCLE PAIN Home Medications Home Medications Medication Instructions Recorded Confirmed Type cholecalciferol (vitamin D3) 1,000 unit PO QAM 04/20/18 07/15/19 History [Vitamin D3] docusate sodium [Colace] 100 mg PO AMHS 04/20/18 07/15/19 History pramipexole 0.5 mg tablet 0.5 mg PO BID 06/01/18 07/15/19 History ondansetron HCl 4 mg tablet 4 mg PO Q8H PRN tab 08/10/18 07/15/19 History acetaminophen [Tylenol Extra 500 mg PO Q6H PRN 05/22/19 07/15/19 History Strength] calcitriol 0.25 mcg PO HS 05/22/19 07/15/19 History methylprednisolone sodium succ 125 mg IM DIRECTED PRN 05/22/19 07/15/19 History metoprolol succinate 50 mg PO BID 05/22/19 07/15/19 History triamcinolone acetonide 1 applic TOPICAL BID PRN 05/22/19 07/15/19 History torsemide 20 mg PO 6XWK 06/22/19 07/15/19 History Lantus Solostar U-100 Insulin 30 unit SC BID 07/02/19 07/15/19 History fludrocortisone 0.1 mg PO .DAILY@5AM 07/02/19 07/15/19 History hydrocortisone 10 mg PO .NOON & 3PM 07/02/19 07/15/19 History hydrocortisone 20 mg PO .DAILY@ 5AM 07/02/19 07/15/19 History lorazepam 1 mg PO BID PRN 07/02/19 07/15/19 History Tradjenta 5 mg PO DAILY 07/15/19 07/15/19 History Past Med/Surg History Social History (Updated 07/15/19 @ 16:45 by Lisset Castro PA-C) Preferred Language: Yoruba Communication Ability: Effective Visual Impairment: Limited Hearing Ability: Hard of Hearing Buddhist Monk Required: No Beliefs That Will Affect Care: None marital status: Single Current Living Situation: Significant Other current occupational status: retired current occupation: Retired - [employer] Other Information That Helps Us Care for You: No Feels Safe at Home: Yes Safety Concerns: Feels Safe At This Time Smoking Status: Never smoker Tobacco Type: smokeless tobacco ; Do You Dip or Chew Tobacco: Yes ; Second Hand Exposure: No ; Hx Alcohol Use: No Hx Substance Use: No caffeine: Yes (2 cups of coffee/day ) during the past year weight has: remained stable Review of Systems Review of Systems: All systems reviewed & are unremarkable except as noted in HPI & below Physical Exam Constitutional: + obese and comfortable Eyes: PERRL, conjunctivae normal, anicteric sclerae EOM intact bilaterally ENMT: external ear and nose normal, oropharynx normal Neck: normal visual inspection Respiratory: normal respiratory effort, lungs clear to auscultation Cardiovascular: Rate/Rhythm: regular rate and regular rhythm Gastrointestinal (Abdomen): normal bowel sounds, soft, nontender, no hepatosplenomegaly Musculoskeletal: Head/Neck/Chest: normocephalic and head atraumatic Neurologic: PERRL, EOMI, accommodation nl, no face palsy, no dysarthria CN's II-XI intact bilaterally Psychiatric: A+Ox3, euthymic affect Results & Data Vital Signs (Past 12 Hours) Vital Signs Temp Pulse Pulse Resp BP BP Pulse Ox 07/17/19 15:10 36.5 C 100 H 18 151/71 H 96 07/17/19 12:25 36.5 C 93 H 20 141/72 H 96 07/17/19 12:02 36.5 C 93 H 20 141/72 H 96 Code Status & VTE Plan VTE Prophylaxis Plan VTE Prophylaxis will be ordered: Yes
[2019-07-17] MEDS: PRAMIPEXOLE DIHYDROCHLO 0.5 MG TAB PO SCH ×2 (17:01→21:03)
[2019-07-17] MEDS ORDERED: METOPROLOL SUCC 50MG EXT REL TAB PO SCH (21:00)
[2019-07-17] MEDS ORDERED: CALCITRIOL 0.25 MCG CAPSULE PO SCH (21:00)
[2019-07-17] MEDS: DOCUSATE SODIUM 100 MG CAP PO SCH (21:03)
[2019-07-17] MEDS: INSULIN GLARGINE SOLOSTAR 100 UNITS/ML 3 ML PEN SC SCH (21:06)
[2019-07-18] MEDS ORDERED: FLUDROCORTISONE ACETATE 0.1 MG TAB PO SCH (05:00)
[2019-07-18] MEDS ORDERED: TORSEMIDE 20 MG TAB PO SCH (05:00)
[2019-07-18] MEDS ORDERED: HYDROCORTISONE 10 MG TAB PO SCH (05:00)
[2019-07-18] MEDS: METOPROLOL SUCC 50MG EXT REL TAB PO SCH ×2 (05:36→14:37)
[2019-07-18 08:55] LABS: Basophils # (auto) 0.02 K/uL (0-0.2); Basophils % (auto) 0.3 %; Eosinophils # (auto) 0.28 K/uL (0-0.5); Eosinophils % (auto) 3.8 %; Hematocrit (blood only) 25.9 % (42-52); Hemoglobin 7.7 g/dL (14.0-18.0); Immature Granulocytes # (auto) 0.01 K/uL (0.00-0.02); Immature Granulocytes % (auto) 0.1 %; Lymphocytes # (auto) 0.99 K/uL (1.2-3.4); Lymphocytes % (auto) 13.4 %; Mean Corpuscular Hemoglobin 25.8 pg (25-34); Mean Corpuscular Hgb Conc 29.7 g/dL (32-36); Mean Corpuscular Volume 86.6 fL (80-100); Mean Platelet Volume 8.8 fL (7.4-10.4); Monocytes # (auto) 0.65 K/uL (0.11-0.59); Monocytes % (auto) 8.8 %; Neutrophils # (auto) 5.43 K/uL (1.4-6.5); Neutrophils % (auto) 73.6 %; Nucleated RBC # (auto) 0.03 K/uL (0-0); Nucleated RBC % (auto) 0.4 %; Platelet Count 315 K/uL (130-400); RDW Coefficient of Variation 15.6 % (11.5-14.5); RDW Standard Deviation 49.6 fL (36.4-46.3); Red Blood Count 2.99 M/uL (4.7-6.1); White Blood Count 7.38 K/uL (4.8-10.8)
[2019-07-18] MEDS: DOCUSATE SODIUM 100 MG CAP PO SCH (08:59)
[2019-07-18] MEDS ORDERED: CHOLECALCIFEROL 1,000 UNITS 25 MCG TAB PO SCH (09:00)
[2019-07-18] MEDS: INSULIN ASPART 100 UNITS/ML 3 ML PEN SC SCH ×3 (09:01→17:25)
[2019-07-18] MEDS: INSULIN GLARGINE SOLOSTAR 100 UNITS/ML 3 ML PEN SC SCH (09:02)
[2019-07-18 09:04] LABS: INR 1.1 (0.9-1.1); Prothrombin Time 11.3 Seconds (9.0-12.0)
[2019-07-18 09:14] LABS: BUN Creatinine Ratio 13.5 (10-20); Calcium 8.8 mg/dl (8.5-10.1); Creatinine Clr Calc Pharmacy 36.2 ml/min; Est GFR (African American) 27.5; Est GFR (Non-African American) 23.7; Potassium 4.4 mmol/L (3.5-5.1)
[2019-07-18 09:24] LABS: Hypochromasia Present
[2019-07-18] MEDS: HYDROCORTISONE 10 MG TAB PO SCH ×2 (12:33→14:37)
[2019-07-18] MEDS: ERTAPENEM SODIUM 1,000 MG in SODIUM CHLORIDE 0.9% 50 ML IV SCH (13:56)
[2019-07-18] MEDS: PRAMIPEXOLE DIHYDROCHLO 0.5 MG TAB PO SCH (14:36)
[2019-07-18 14:41] VITALS: BP 128/65; TEMP 98.2; O2SAT 97
--- NOTE | 2019-07-18 15:36 | Discharge Summary ---
Date of Service July 18, 2019 Admission HPI Per Admitting Provider 74 year old male who was discharged on 07/16/19 after hospitalization for blood transfusion and chronic hematuria and asked to return to the hospital for admission because of previous urine culture growing Escherichia coli ESBL; started on Ertapenem, follow blood cultures. Patient reported that when he was home since 07/16/19 he was feeling better from previous hospital presentation. denied fevers or chills. no palpitations. no chest pain. no abdominal pain. no dizziness. no lightheadedness Admission Exam Per Admitting Provider Constitutional: + obese and comfortable Eyes: PERRL, conjunctivae normal, anicteric sclerae EOM intact bilaterally ENMT: external ear and nose normal, oropharynx normal Neck: normal visual inspection Respiratory: normal respiratory effort, lungs clear to auscultation Cardiovascular: Rate/Rhythm: regular rate and regular rhythm Gastrointestinal (Abdomen): normal bowel sounds, soft, nontender, no h epatosplenomegaly Musculoskeletal: Head/Neck/Chest: normocephalic and head atraumatic Neurologic: PERRL, EOMI, accommodation nl, no face palsy, no dysarthria CN's II-XI intact bilaterally Psychiatric: A+Ox3, euthymic affect Principal Diagnosis ESBL E coli Acute blood loss anemia with iron deficiency 2/2 gross hematuria atrial fibrillation Discharge Exam CONSTITUTIONAL: obesity, vitals as above, generally well-appearing EYES: normal conjunctivae, no scleral icterus ENT: MMM RESPIRATORY: clear to auscultation bilaterally, no crackles, rales or wheezes, normal respiratory effort CARDIOVASCULAR: regular rate and rhythm, S1 and 2 heard without murmurs, gallops or rubs, no JVD, no peripheral edema GASTROINTESTINAL: soft, protuberant, nontender, nondistended MUSCULOSKELETAL: strength 5/5 throughout, moves around the room with ease, head is normocephalic and atraumatic SKIN: warm and dry NEUROLOGIC: CN 2-12 grossly intact, normal cognition, normal speech, no gross focal deficits. PSYCHIATRIC: alert cooperative and oriented to person, place and time. Discharge Data Allergies Allergy/AdvReac Type Severity Reaction Status Date / Time perflutren AdvReac Intermediate GI SYMPTOMS Verified 07/15/19 16:07 propylene glycol AdvReac Intermediate GI SYMPTOMS Verified 07/15/19 16:07 simvastatin AdvReac Intermediate JOINT AND Verified 07/15/19 16:07 MUSCLE PAIN Consultations 07/17/19 12:07 Consult Case Management - Discharge Planning Routine 07/18/19 08:34 Consult Urology Routine Hospital Course (1) UTI due to extended-spectrum beta lactamase (ESBL) producing Escherichia coli: (2) Acute blood loss anemia: (3) Paroxysmal atrial fibrillation: (4) Diabetes type 2, uncontrolled: (5) 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 coli. He was admitted to the hospitalist service and started on ertapenem. Blood cultures were ordered and negative at time of discharge. He was not clinically ill. He reported an improvement from the standpoint of symptomatic anemia after transfusion of one unit of blood several days prior. His H/H had remained stable at 8/26. Baseline H/H one month ago was 13/40, however, he did not appear to be losing more blood. 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 Since the bladder resection he suffered persistent gross hematuria while still on Coumadin for treatment of paroxysmal atrial fibrillation. He reported an improvement/resolution of his gross hematuria after stopping Coumadin a few days back. Urology was consulted and decided to remove his ureteral stent in the setting of UTI. This was performed at the bedside on discharge and the right ureteral stent was removed with no complications. A PICC line was placed and 14 days of ertapenem was recommended. This will be set up through home health who will perform daily infusions with monitoring blood work sent to primary care doctor for review while on IV antibiotics. At time of discharge he was hemodynamically stable and afebrile and tolerating p.o. He was mentating and ambulating at baseline and was discharged in guarded condition secondary to his terminal metastatic melanoma with close primary care follow-up recommended. Total Time Total Time Spent Total Time Spent (In Minutes): 60 Total Time Includes: Examination of the Patient, Discharge Planning, Medication Reconciliation, Communication With Other Providers and Other (arrange follow-up) Discharge Plan Discharge Items Patient Disposition: Home - Home Health Services Reason For Visit: ESBL,UTI Discharge Diagnosis: ESBL E coli Acute blood loss anemia with iron deficiency 2/2 gross hematuria atrial fibrillation Condition on Discharge: Good Activity: Resume your previous activity Non-emergency contact: Primary Care Provider Call non-emergency contact if: you have any medication questions, your symptoms worsen, your pain is not controlled, your pain is worsening, your pain is unusual for you, your pain is concerning for you and you have a fever Follow-up/Referrals: James Harvey MD [Outside Practitioners] - 07/22/19 8:45 am Prasad Mcguire DO [Primary Care Provider] - Diet: Carb Consistent or DM2 Ambulatory Orders: Complete Blood Count with Diff (Routine) Timeframe: 1 Week Location: Determined by Patient Ordered By: Rut Najera Comprehensive Metabolic Panel (Routine) Timeframe: 1 Week Location: Determined by Patient Ordered By: Rut Najera Addtl Attending Provider Instructions: Please take all medications as instructed on discharge list below. You will have Home Health for daily infusions of ertapenem. After today, you receive an additional 12 doses to complete a 14 day course. While on this medication you will need to have some non-fasting labwork drawn in one week. This can be performed by the Home Health nurse giving the infusions using the prescription provided at discharge. You have the following primary care appointment to ensure you are still doing well after discharge. 07/22/2019 9:00 AM James Harvey MD Family Practice [facility] You have the following appointments scheduled: 07/28/2019 7:45 AM Mathieu Culp MD Hematology/Oncology [facility] 07/29/2019 11:20 AM Ekta Rosa MD Nephrology, [facility] It was a pleasure taking care of you! Please call if you have any questions or problems. You can reach a [facility] hospitalist on duty at [facility] 24 hours a day by calling [phone]. Take care of yourself. Rut Najera DO [facility] Hospitalist Pending Studies at Discharge: Yes Studies:: initial blood cultures negative but final results pending at time of discharge. Stand-Alone Forms: My [facility], Smoking Cessation Medications and DC Order Prescriptions: New ertapenem 1 gram recon soln 1 gm IV DAILY Qty: 12 RF: 0 Continued pramipexole [Mirapex] 0.5 mg tablet 0.5 mg PO BID RF: 0 ondansetron HCl 4 mg tablet 4 mg PO Q8H PRN (Reason: Nausea And Vomiting) RF: 0 docusate sodium [Colace] 100 mg Capsule 100 mg PO AMHS RF: 0 cholecalciferol (vitamin D3) [Vitamin D3] 1,000 unit Capsule 1,000 unit PO QAM RF: 0 metoprolol succinate 50 mg Tablet Extended Release 24 Hr 50 mg PO BID RF: 0 acetaminophen [Tylenol Extra Strength] 500 mg Tablet 500 mg PO Q6H PRN (Reason: Pain) RF: 0 triamcinolone acetonide 0.1 % Cream 1 applic TOPICAL BID PRN (Reason: RASH ON LEGS, ARMS & BACK) RF: 0 methylprednisolone sodium succ 125 mg Recon Soln 125 mg IM DIRECTED PRN (Reason: EMERGENCY CASE) RF: 0 calcitriol 0.25 mcg Capsule 0.25 mcg PO HS RF: 0 torsemide 20 mg tablet 20 mg PO 6XWK RF: 0 hydrocortisone 10 mg tablet 10 mg PO .NOON & 3PM RF: 0 hydrocortisone 10 mg tablet 20 mg PO .DAILY@ 5AM RF: 0 fludrocortisone 0.1 mg tablet 0.1 mg PO .DAILY@5AM RF: 0 lorazepam 1 mg Tablet 1 mg PO BID PRN (Reason: Anxiety) RF: 0 Lantus Solostar U-100 Insulin 100 unit/mL (3 mL) insulin pen 30 unit SC BID RF: 0 Tradjenta 5 mg tablet 5 mg PO DAILY RF: 0 Discharge Orders: Discharge Order (Routine); Ordered 07/18/19 Ordered By: Rut Najera Admission Data Admit Date/Time: 07/17/19 11:44 Attending Provider: Rut Najera Admit Provider: Binh Babcock Primary Care Provider: Prasad Mcguire Other Providers: Radha Wolf ; [facility] Other Interventions: Discharge Summary Assessment (RN) Last Done: 07/18/19 16:54 DC Date/Time DO NOT enter until pt leaves facility: 07/18/19 18:31
--- NOTE | 2019-07-18 16:25 | Urology Consultation ---
Date of Consultation July 18, 2019 Assessment & Plan (1) UTI due to extended-spectrum beta lactamase (ESBL) producing Escherichia coli: will have a course if iv abt to clear uti I recommend removing his right ureteral stent as it is a nidus for bacteria. patient agrees and signed consent. I then did a bedside cysto and right stent removal in room 377 with no complications. he will be discharged this evening. hematuria should improve now that he is off coumadin. Present on Admission?: Yes History of Present Illness Reason for Consultation: hematuria Requesting Physician: Dr Najera Attending Physician: Rut Najera, DO History of Present Illness I am asked by Dr Najera to evaluate and treat patient for gross hematuria. He had an aggressive [place] of a metastasis of [place] in [place] [facility]. he had a right stent placed because tumor was near the right UO. He had a mejia for 2 weeks to allow for healing and has had intermittent problems with hematuria since we think due to the deep resection and his coumadin. he had clinically significant acute blood loss anemia this month and had 2 units packed RBCs days ago. He feels much better since the transfusion. His urine last visit grew a MDR bug so he was readmitted for initiation of iv antibiotics. He feels well. Allergies Allergy/AdvReac Type Severity Reaction Status Date / Time perflutren AdvReac Intermediate GI SYMPTOMS Verified 07/15/19 16:07 propylene glycol AdvReac Intermediate GI SYMPTOMS Verified 07/15/19 16:07 simvastatin AdvReac Intermediate JOINT AND Verified 07/15/19 16:07 MUSCLE PAIN Home Medications Home Medications Medication Instructions Recorded Confirmed Type cholecalciferol (vitamin D3) 1,000 unit PO QAM 04/20/18 07/15/19 History [Vitamin D3] docusate sodium [Colace] 100 mg PO AMHS 04/20/18 07/15/19 History pramipexole 0.5 mg tablet 0.5 mg PO BID 06/01/18 07/15/19 History ondansetron HCl 4 mg tablet 4 mg PO Q8H PRN tab 08/10/18 07/15/19 History acetaminophen [Tylenol Extra 500 mg PO Q6H PRN 05/22/19 07/15/19 History Strength] calcitriol 0.25 mcg PO HS 05/22/19 07/15/19 History methylprednisolone sodium succ 125 mg IM DIRECTED PRN 05/22/19 07/15/19 History metoprolol succinate 50 mg PO BID 05/22/19 07/15/19 History triamcinolone acetonide 1 applic TOPICAL BID PRN 05/22/19 07/15/19 History torsemide 20 mg PO 6XWK 06/22/19 07/15/19 History Lantus Solostar U-100 Insulin 30 unit SC BID 07/02/19 07/15/19 History fludrocortisone 0.1 mg PO .DAILY@5AM 07/02/19 07/15/19 History hydrocortisone 10 mg PO .NOON & 3PM 07/02/19 07/15/19 History hydrocortisone 20 mg PO .DAILY@ 5AM 07/02/19 07/15/19 History lorazepam 1 mg PO BID PRN 07/02/19 07/15/19 History Tradjenta 5 mg PO DAILY 07/15/19 07/15/19 History ertapenem 1 gm IV DAILY #12 ea 07/18/19 Rx Patient History Social History (Updated 07/15/19 @ 16:45 by Lisset Castro PA-C) Preferred Language: Guatemalan Communication Ability: Effective Visual Impairment: Limited Hearing Ability: Hard of Hearing Resilient Tile Installer Required: No Beliefs That Will Affect Care: None marital status: Single Current Living Situation: Significant Other current occupational status: retired current occupation: Retired - [employer] [place] Other Information That Helps Us Care for You: No Feels Safe at Home: Yes Safety Concerns: Feels Safe At This Time Smoking Status: Never smoker Tobacco Type: smokeless tobacco ; Do You Dip or Chew Tobacco: Yes ; Second Hand Exposure: No ; Hx Alcohol Use: No Hx Substance Use: No caffeine: Yes (2 cups of coffee/day ) during the past year weight has: remained stable Review of Systems Review of Systems: PMH- HTN, metastatic melanoma, cholesterol, obesity SOc- lives alone, former tobacco, no alcohol, retired ROS- no fevers or chills, ++ fatigue, no chest pain, no shortness of breath but very sedentary, bowels normal, no seizures Physical Exam Constitutional: well developed, well nourished, + morbidly obese and cooperative; no acute distress Respiratory: normal respiratory effort; no respiratory distress, no retractions and no cough Skin: no rashes, warm and dry Neurologic: moves all extremities Psychiatric: A+Ox3, euthymic affect Genitourinary: + penis abnormality (buried penis, mild meatal stenosis ); no CVA tenderness Results & Data Vital Signs (Past 12 Hours) Vital Signs Temp Pulse Resp BP Pulse Ox 07/18/19 14:37 36.8 C 88 18 128/65 97 07/18/19 07:23 36.7 C 86 14 107/67 93 07/18/19 05:33 83 139/63
--- NOTE | 2019-07-18 16:30 | Procedure Note ---
Procedure Note Date of Service July 18, 2019 Note pre-op diagnosis- uti and right ureteral stent Post op diagnosis- same procedure cysto right ureteral stent removal ivf- none asa- 3 ebl- 0mL iv abt given earlier today complications- none findings- dark red lesions around the right trigone, likely recurrent tumor. indications; right stent placed in April 2019 at time of bladder tumor resection Anesthesia- none I identified patient name, procedure and confirmed his date of in time out with nurse. Report of operation: patient was placed supine in bed. His genitals were prepped with a chlorhexidine sponge and draped in sterile fashion. Time out held with team. I placed a lubricated 18 fr flexible olympus cystoscope into the bladder, He has some mild stenosis at the meatus only. I used a flexible grasper to grasp the stent tip and withdrew the scope and stent together. The stone was found to be completely intact. patient tolerated procedure well. Plan: home today Coding
[2019-07-18 16:56] VITALS: PULSE 93
== END 2019-07-18 18:31 | disposition home health service (06) | DRG 690 ==
LOC: SUATTDRO 11:44 → 3N 11:44

== ENCOUNTER 2019-07-29 11:22 | Inpatient (IN) ==
[2019-07-29] MEDS ORDERED: ALBUT/IPRATROP 3MG/0.5MG NEB 3 ML VIAL NEB STA (11:29)
[2019-07-29] MEDS ORDERED: ACETAMINOPHEN 325 MG TAB PO STA (11:29)
[2019-07-29] MEDS ORDERED: HYDROCORTISONE SOD SUCCINATE 100 MG/2 ML VIAL IV STA (11:31)
[2019-07-29] MEDS ORDERED: LEVALBUTEROL HCL 1.25 MG/3 ML NEB NEB STA (11:42)
[2019-07-29] MEDS ORDERED: SODIUM CHLORIDE 0.9% 1000ML 250 ML IV ONE (11:56)
[2019-07-29] MEDS ORDERED: CEFEPIME 2,000 MG/20 ML VIAL IV STA (11:56)
--- NOTE | 2019-07-29 12:00 | XRay Report ---
XR chest 1V portable CLINICAL HISTORY: 74 years-old Male presenting with SEPSIS. TECHNIQUE: Portable upright AP view of the chest was obtained. COMPARISON: 07/15/2019. FINDINGS: Borderline enlargement of the cardiac silhouette. Pulmonary vasculature unchanged in appearance. Mild ly low lung volumes. No focal opacity allowing for body habitus and portable technique. No large effu nikki or pneumothorax. Degenerative changes of the thoracic spine. Surgical clips noted in the right a xilla. Upper abdomen normal. IMPRESSION: 1. No change from prior exam. No focal infiltrate to suggest pneumonia. ACT 112: Negative or not required by law. Electronically signed by: Seven Ponce M.D. 07/29/2019 11:59 AM
[2019-07-29 12:07] LABS: Hematocrit (blood only) 27.3 % (42-52); Hemoglobin 7.8 g/dL (14.0-18.0); Mean Corpuscular Hemoglobin 23.9 pg (25-34); Mean Corpuscular Hgb Conc 28.6 g/dL (32-36); Mean Corpuscular Volume 83.7 fL (80-100); Mean Platelet Volume 9.5 fL (7.4-10.4); Nucleated RBC # (auto) 0.03 K/uL (0-0); Nucleated RBC % (auto) 0.3 %; Platelet Count 354 K/uL (130-400); RDW Coefficient of Variation 17.4 % (11.5-14.5); RDW Standard Deviation 53.7 fL (36.4-46.3); Red Blood Count 3.26 M/uL (4.7-6.1); White Blood Count 8.54 K/uL (4.8-10.8)
[2019-07-29 12:16] LABS: iSTAT Creatinine 2.5 mg/dl (0.6-1.3); iSTAT Hemoglobin 8.2 g/dl (14.0-18.0); iSTAT Ionized Calcium 1.13 mmol/l (1.12-1.32)
[2019-07-29 12:17] LABS: Partial Thromboplastin Ratio 1.1; Partial Thromboplastin Time 30.8 Seconds (21.0-31.0); Prothrombin Time 10.6 Seconds (9.0-12.0)
[2019-07-29 12:21] LABS: Albumin Level 2.7 gm/dl (3.4-5.0); BUN Creatinine Ratio 14.6 (10-20); Calcium 8.3 mg/dl (8.5-10.1); Creatinine Clr Calc Pharmacy 41.2 ml/min; Est GFR (African American) 31.2; Est GFR (Non-African American) 26.9; Magnesium 1.7 mg/dl (1.8-2.4); Potassium 4.8 mmol/L (3.5-5.1)
[2019-07-29 12:24] LABS: Albumin Globulin Ratio 0.7 (0.9-2); Basophils # (auto) 0.02 K/uL (0-0.2); Basophils % (auto) 0.2 %; Bilirubin,Total 0.5 mg/dl (0.2-1); Eosinophils # (auto) 0.28 K/uL (0-0.5); Eosinophils % (auto) 3.3 %; Globulin 3.8 gm/dl (2.5-4.0); Hypochromasia Present; Immature Granulocytes # (auto) 0.01 K/uL (0.00-0.02); Immature Granulocytes % (auto) 0.1 %; Lymphocytes # (auto) 1.37 K/uL (1.2-3.4); Monocytes # (auto) 0.93 K/uL (0.11-0.59); Monocytes % (auto) 10.9 %; Neutrophils # (auto) 5.93 K/uL (1.4-6.5); Neutrophils % (auto) 69.5 %; Total Protein 6.5 gm/dl (6.4-8.2)
[2019-07-29] MEDS ORDERED: ESMOLOL / NSS 2,500 MG/250 ML BAG IV SCH (12:45)
--- NOTE | 2019-07-29 13:03 | Electrocardiogram Report ---
Test Reason : Blood Pressure : / mmHG Vent. Rate : 158 BPM Atrial Rate : 156 BPM P-R Int : 000 ms QRS Dur : 118 ms QT Int : 288 ms P-R-T Axes : 000 044 073 degrees QTc Int : 467 ms Atrial fibrillation with rapid ventricular response Low voltage QRS Cannot rule out Anterior infarct , age undetermined Left bundle branch block Abnormal ECG When compared with ECG of 17-JUL-2019 14:44, Significant changes have occurred Confirmed by Alireza Barrios ([id number]) on 07/29/2019 1:02:56 PM Referred By: Confirmed By:Alireza Barrios
[2019-07-29 13:09] LABS: Influenza A virus by PCR Neg for Influ A (Neg); Influenza B virus by PCR Neg for Influ B (Neg)
[2019-07-29] MEDS ORDERED: MAGNESIUM SULFATE / D5W 1 GM/100 ML BAG IV ONE (13:47)
--- NOTE | 2019-07-29 13:52 | History & Physical Report ---
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 He was given total 850 mL and SS bolus, esmolol started. In ER patient converted to sinus rhythm and esmolol drip was stopped. History paroxysmal atrial fibrillation. Atrial fibrillation RVR likely secon marvin to underlying infection -pending troponin -Continue metoprolol with holding parameters -Patient's Coumadin was discontinued in 06/2019 secondary to hematuria and symptomatic anemia -Magnesium: 1.7, replace -Cardiology consult -Monitor BMP, magnesium (2) Hypoxia: (3) Cough: In ER Given Tylenol, cefepime, hydrocortisone 100 mg IV, Xopenex/Atrovent neb. Patient's breathing improved after neb treatment and with supplemental oxygen at 3 L via nasal cannula with sats at 95%, converted to sinus rhythm and respirations down to 24. DDX: Influenza, Viral URI, pneumonia WBC: 8, lactate: 1.1, negative influenza PCR. XR: No infiltrate -Blood cultures pending -Xopenex/Atrovent nebs as needed -MRSA screen -Doxycycline 100 mg twice daily p.o. -Droplet precautions for now as suspect influenza -Will start renal dose Tamiflu -Supplemental oxygen as needed -CBC in a.m. (4) Hypomagnesemia: Magnesium: 1.7 -Placed on monitor (5) Anemia: Recent PRBC transfusion the end of 06/2019, at that time Hgb: 6.9 increased to 8.0 on 07/16/2019. Today H/H: 7.8/27.3. Denies dizziness, hematuria, epistaxis, melena, hematochezia, other bleeding -Type and screen and hold for now -Monitor H&H (6) UTI due to extended-spectrum beta lactamase (ESBL) producing Escherichia coli: Recent ESBL UTI on urine culture 07/15/2019. Was started on ertapenem daily on 07/17/2019. Denies dysuria, hematuria, urinary frequency, urinary retention -Obtain UA -Continue ertapenem (7) Adrenal insufficiency: -In ER given hydrocortisone 100 mg IV -Continue home Florinef -Hold home hydrocortisone p.o. -Hydrocortisone 50 mg every 8 hours (8) CKD (chronic kidney disease): CKD III-IV Cr: 2.3. Baseline ~2.5 -Monitor renal functions -Avoid nephrotoxic agents when possible (9) Cardiomyopathy: 11/2018 echo: Borderline concentric left ventricular hypertrophy, no wall motion abnormalities, EF: 50-55% -Hold torsemide currently (10) Diabetes type 2, uncontrolled: A1c: 10.2 in 06/2019 [place] drop wire string[place] [facility] [place] Fon[place]. 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 Most recent bladder resection on 05/14/[address] [place] [facility] [place] Currently follows with Dr. Rosario -No further treatment recommended at this time'' -May need consideration palliative consult in near future (12) Sleep apnea: -CPAP at bedtime (13) RLS (restless legs syndrome): -Continue pramipexole DVT Prophylaxis -SCDs with anemia Full Code as per discussion with pt Follows with Dr Mcguire for routine care Pt was seen and care coordinated with Dr Mitchell. 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 Reported 3 days ago not feeling well. Today developed body aches, cough that is nonproductive so far, shortness of breath. Denies chest pain, palpitations. [facility] at home saw pat ient today and had reported fever 103F and 87% on room air and oxygen at 2 L was applied with improved sats and EMS was called. Patient reports had morning oral medications. Did not have daily dose of ertapenem today. Denies diaphoresis, N/V/D/C, LIANG, dizziness, syncope, vision changes, neck pain, CP, palpitations, hemoptysis, sore throat, choking, otalgia, rhinorrhea, abdominal pain, paresthesias, extremity weakness, increased extremity edema, rashes, dysuria, hematuria, urinary frequency, flank pain, back pain. Patient with recent hospitalization 07/15/2019-07/16/2019 for anemia, hematuria. Hemoglobin 6.9 and was given 1 unit PRBCs with hemoglobin up to 8.0 on 07/16/2019. Coumadin was stopped during that admission. Patient returned to hospital 07/17/2019-07/18/2019 as urine culture positive for ESBL and was started on ertapenem. Patient has been getting ertapenem daily at home through PICC line and to be completed on 07/30/2019. 07/18/2019 patient had right stent removed. He states since removal has not had any further hematuria. In ER patient found to have heart rate 160, RR: 30, 90% on room air, BP 126/66, T: 37.4C. He was given total 850 mL and SS bolus, esmolol started. Given Tylenol, cefepime, hydrocortisone 100 mg IV, Xopenex/Atrovent neb. In ER patient converted to sinus rhythm and esmolol drip was stopped. Patient's breathing improved after neb treatment and with supplemental oxygen at 3 L via nasal cannula with sats at 95% and respirations down to 24. Allergies Allergy/AdvReac Type Severity Reaction Status Date / Time perflutren AdvReac Intermediate GI SYMPTOMS Verified 07/29/19 12:44 propylene glycol AdvReac Intermediate GI SYMPTOMS Verified 07/29/19 12:44 simvastatin AdvReac Intermediate JOINT AND Verified 07/29/19 12:44 MUSCLE PAIN Home Medications Home Medications Medication Instructions Recorded Confirmed Type cholecalciferol (vitamin D3) 1,000 unit PO DAILY@0500 04/20/18 07/29/19 History [Vitamin D3] docusate sodium [Colace] 100 mg PO AMHS 04/20/18 07/29/19 History pramipexole 0.5 mg tablet 0.5 mg PO BID 06/01/18 07/29/19 History ondansetron HCl 4 mg tablet 4 mg PO Q8H PRN tab 08/10/18 07/29/19 History acetaminophen [Tylenol Extra 500 mg PO Q6H PRN 05/22/19 07/29/19 History Strength] calcitriol 0.25 mcg PO HS 05/22/19 07/29/19 History methylprednisolone sodium succ 125 mg IM DIRECTED PRN 05/22/19 07/29/19 History metoprolol succinate 50 mg PO BID 05/22/19 07/29/19 History triamcinolone acetonide 1 applic TOPICAL BID PRN 05/22/19 07/29/19 History torsemide 20 mg PO SUMOTUWEFRSA@0500 06/22/19 07/29/19 History Lantus Solostar U-100 Insulin 30 unit SC BID 07/02/19 07/29/19 History fludrocortisone 0.1 mg PO DAILY@0500 07/02/19 07/29/19 History hydrocortisone 10 mg PO DAILY@1200,1500 07/02/19 07/29/19 History hydrocortisone 20 mg PO DAILY@0500 07/02/19 07/29/19 History lorazepam 1 mg PO HS 07/02/19 07/29/19 History ertapenem 1 gm IV DAILY #12 ea 07/18/19 07/29/19 Rx gabapentin 100 mg PO TID 07/29/19 07/29/19 History lorazepam 1 mg PO DAILY PRN 07/29/19 07/29/19 History Past Med/Surg History Medical History Adrenal insufficiency S/P LEFT ADRENALECTOMY- ON CHRONIC HYDROCORTISONE Anxiety (Chronic) 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- IMMUNOTHERAPY Q 2 WEEKS (on hold) Chronic back pain Degenerative disc disease Dyslipidemia (Chronic) H/O transfusion of packed red blood cells S/P 2 UNITS (2016) History of immunotherapy (Chronic) Keytruda x 2 Cycles (had to stop after 2nd cycle) Current Opdivo q 2 weeks (currently on hold) - started 05/2017 - 04/2018 Hypertension Morbid obesity Osteoarthritis Sleep apnea CPAP HS Stage 3 chronic kidney disease Surgical History History of colonoscopy 2016 History of esophagogastroduodenoscopy (EGD) 2017 History of tooth extraction Hx of 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 Mother Colon cancer, Onset Age: 85 Chemo and Resection - Alive and well now Sister Breast cancer, Onset Age: 55 Had Radiation - Alive and well now Sister No problems noted. Sister No problems noted. Sister No problems noted. Sister No problems noted. Brother No problems noted. Son No problems noted. Son No problems noted. Social History Preferred Language: Greek Communication Ability: Effective Visual Impairment: Limited Hearing Ability: Hard of Hearing [employer] Consultant Required: No Beliefs That Will Affect Care: None marital status: Single Current Living Situation: Significant Other current occupational status: retired current occupation: Retired - [employer] Feels Safe at Home: Yes Safety Concerns: Feels Safe At This Time Smoking Status: Never smoker Tobacco Type: smokeless tobacco ; Second Hand Exposure: No ; Hx Alcohol Use: No Hx Substance Use: No caffeine: Yes (2 cups of coffee/day ) during the past year weight has: remained stable Review of Systems Review of Systems: All systems reviewed & are unremarkable except as noted in HPI & below Physical Exam Physical Exam: General: mild distress, obese, ill appearing Head: normocephalic, atraumatic Eyes: PERRL, EOM's intact, conjunctiva non-injected, anicteric ENT: normal inspection external ears, nose, mucous membranes mildly dry Neck: supple, trachea midline Lungs: diminished with diffuse wheezing throughout, no rhonchi/rales; R: 24, On 3L oxygen via NC with sats: 95%, able to speak in sentences CV: initially irregularly irregular at rate 120, then to regular rhythm with rate 88, 2+ pretibial edema Abd: normal BS, protuberant, soft, non-tender Ext: no cyanosis, no calf tenderness Neuro: A&O x 3, no focal deficits noted, irritable but cooperative Skin: warm, dry Results & Data Vital Signs (Past 12 Hours) Vital Signs Temp Pulse Pulse Resp BP Pulse Ox 07/29/19 13:17 87 25 H 93/49 L 96 07/29/19 13:10 114 H 27 H 91/59 L 95 07/29/19 13:02 144 H 25 H 96 07/29/19 13:00 147 H 26 H 103/70 97 07/29/19 12:59 157 H 25 H 81/58 L 96 07/29/19 12:57 127 H 26 H 90/64 L 96 07/29/19 12:50 168 H 25 H 97 07/29/19 12:45 133 H 26 H 96/73 L 97 07/29/19 12:40 152 H 27 H 97 07/29/19 12:31 134 H 29 H 93/68 L 97 07/29/19 12:30 153 H 24 96 07/29/19 12:20 135 H 29 H 97 07/29/19 12:15 123 H 30 H 155/58 H 97 07/29/19 12:10 160 H 30 H 97 07/29/19 12:07 155 H 143 H 22 98 07/29/19 12:04 159 H 30 H 126/66 96 07/29/19 12:01 37.4 C 143 H 30 H 126/66 90 07/29/19 11:29 160 H 30 H 90 07/29/19 11:06 90 Laboratory Results Short CBC 07/29/19 Range/Units 11:49 WBC 8.54 (4.8-10.8) K/uL Hgb 7.8 L (14.0-18.0) g/dL Hct 27.3 L (42-52) % Plt Count 354 (130-400) K/uL BMP 07/29/19 11:49 Sodium 137 Potassium 4.8 Chloride 104 Carbon Dioxide 29 BUN 34 H Creatinine 2.33 H Glucose 101 H Calcium 8.3 L Liver Function 07/29/19 Range/Units 11:49 Total Bilirubin 0.5 (0.2-1) mg/dl AST 21 (15-37) U/L ALT 22 (12-78) U/L Alkaline Phosphatase 78 (45-117) U/L Albumin 2.7 L (3.4-5.0) gm/dl Diagnostic Findings CXR: IMPRESSION: 1. No change from prior exam. No focal infiltrate to suggest pneumonia. ECG Rate (beats per minute): 158 Rhythm: atrial fibrillation Code Status & VTE Plan VTE Prophylaxis Plan VTE Prophylaxis will be ordered: Yes Supervising Physician Co-Signing Physician Notes HISTORY: Record reviewed. Patient interviewed and examined in ED around 1350. Care coordinated with Lisset Castro PA-C. Please refer to her documentation for complete history. Briefly, 74-year-old male with history of melanoma metastatic to multiple sites refractory to systemic therapies, paroxysmal atrial fibrillation, and other problems. Recently hospitalized and treated for an E. coli ESBL and receiving intravenous ertapenem at home. Developed fever, cough, shortness of breath. Referred to ED for further evaluation. Upon arrival to ED, he was noted to be in atrial fibrillation with a ventricular rate of 160/minute. Received esmolol infusion and converted to normal sinus rhythm. EXAM: General- no distress Lungs- scattered rhonchi, diffuse wheezing; no respiratory distress Cardiovascular- RRR; no murmur; no gallop; no JVD; 1-2+ pretibial edema Abdomen- + bowel sounds, soft, nontender Extremities- no cyanosis; no calf tenderness Neuro- alert, oriented Skin- warm & dry DATA: Hemoglobin 7.8, white count 8540, platelet count 354,000. PT 10.6, INR 1.0, PTT 30.8. Sodium 137, potassium 4.8, chloride 104, CO2 29, BUN 34, creatinine 2.33, random glucose 101. Serum lactate 1.1. Nasopharyngeal swab for influenza A/B negative. UA pending. Other lab studies as noted. Chest x-ray reviewed - cardiomegaly, no infiltrates, effusions, CHF. EKG performed at 1132 reviewed and demonstrated atrial fibrillation at 160 / minute, left bundle branch block, nonspecific ST, T wave abnormalities. ASSESSMENT AND PLAN: FEVER / COUGH Patient presented with fever, cough, shortness of breath. No infiltrates on chest x-ray. Nasopharyngeal swab for influenza negative. Most likely, patient has a viral respiratory tract infection, not influenza. However, given his underlying malignancy and chronic steroids will treat for possible influenza with oseltamivir and possible bacterial tracheobronchitis with doxycycline. Continue ertapenem for UTI. Check follow-up chest x-ray if pulmonary symptoms persist or worsen. UTI Currently being treated for ESBL E. coli with ertapenem as outpatient. Continue ertapenem. Check follow-up urinalysis. PAROXYSMAL ATRIAL FIBRILLATION History of PAF on metoprolol. Was on warfarin in the past, but it had to be discontinued because of significant gross hematuria. A fib with rapid ventricular response at time of presentation. Converted to normal sinus rhythm after receiving esmolol infusion. Continue metoprolol. Magnesium low- replace. Continue cardiac monitoring. ADRENAL INSUFFICIENCY Adrenal insufficiency secondary to metastases from malignant melanoma with resection of bilateral adrenal glands. On maintenance therapy with hydrocortisone and fludrocortisone. IV hydrocortisone while acutely ill with rapid transition to usual maintenance therapy. ANEMIA Chronic anemia, probably not multifactorial with underlying malignancy and recent gross hematuria. Received 2 units of packed RBCs during recent hospital stay. Hemoglobin was 7.7 on 07/18/2019. Hemoglobin today = 7.8. No need for transfusion at this time per current guidelines. Follow H&H. MALIGNANT MELANOMA Melanoma diagnosed several years ago with metastases to multiple sites including adrenal glands and urinary bladder. Recently seen by Hematology/Oncology. No options for further systemic therapy at this time. Please refer to BRIDGETET Castro's documentation for discussion of other issues. (1) CKD (chronic kidney disease) Chronic kidney disease stage: unspecified stage Qualified Code(s): N18.9 - C hronic kidney disease, unspecified
--- NOTE | 2019-07-29 14:29 | Communication Note ---
Date of Service: July 29, 2019 HISTORY: Record reviewed. Patient interviewed and examined in ED around 1350. Care coordinated with Lisset Castro PA-C. Please refer to her documentation for complete history. Briefly, 74-year-old male with history of melanoma metastatic to multiple sites refractory to systemic therapies, paroxysmal atrial fibrillation, and other problems. Recently hospitalized and treated for an E. coli ESBL and receiving intravenous ertapenem at home. Developed fever, cough, shortness of breath. Referred to ED for further evaluation. Upon arrival to ED, he was noted to be in atrial fibrillation with a ventricular rate of 160/minute. Received esmolol infusion and converted to normal sinus rhythm. EXAM: General- no distress Lungs- scattered rhonchi, diffuse wheezing; no respiratory distress Cardiovascular- RRR; no murmur; no gallop; no JVD; 1-2+ pretibial edema Abdomen- + bowel sounds, soft, nontender Extremities- no cyanosis; no calf tenderness Neuro- alert, oriented Skin- warm & dry DATA: Hemoglobin 7.8, white count 8540, platelet count 354,000. PT 10.6, INR 1.0, PTT 30.8. Sodium 137, potassium 4.8, chloride 104, CO2 29, BUN 34, creatinine 2.33, random glucose 101. Serum lactate 1.1. Nasopharyngeal swab for influenza A/B negative. UA pending. Other lab studies as noted. Chest x-ray reviewed - cardiomegaly, no infiltrates, effusions, CHF. EKG performed at 1132 reviewed and demonstrated atrial fibrillation at 160 / minute, left bundle branch block, nonspecific ST, T wave abnormalities. ASSESSMENT AND PLAN: FEVER / COUGH Patient presented with fever, cough, shortness of breath. No infiltrates on chest x-ray. Nasopharyngeal swab for influenza negative. Most likely, patient has a viral respiratory tract infection, not influenza. However, given his underlying malignancy and chronic steroids will treat for possible influenza with oseltamivir and possible bacterial tracheobronchitis with doxycycline. Continue ertapenem for UTI. Check follow-up chest x-ray if pulmonary symptoms persist or worsen. UTI Currently being treated for ESBL E. coli with ertapenem as outpatient. Continue ertapenem. Check follow-up urinalysis. PAROXYSMAL ATRIAL FIBRILLATION History of PAF on metoprolol. Was on warfarin in the past, but it had to be discontinued because of significant gross hematuria. A fib with rapid ventricular response at time of presentation. Converted to normal sinus rhythm after receiving esmolol infusion. Continue metoprolol. Magnesium low- replace. Continue cardiac monitoring. ADRENAL INSUFFICIENCY Adrenal insufficiency secondary to metastases from malignant melanoma with resection of bilateral adrenal glands. On maintenance therapy with hydrocortisone and fludrocortisone. IV hydrocortisone while acutely ill with rapid transition to usual maintenance therapy. ANEMIA Chronic anemia, probably not multifactorial with underlying malignancy and recent gross hematuria. Received 2 units of packed RBCs during recent hospital stay. Hemoglobin was 7.7 on 07/18/2019. Hemoglobin today = 7.8. No need for transfusion at this time per current guidelines. Follow H&H. MALIGNANT MELANOMA Melanoma diagnosed several years ago with metastases to multiple sites including adrenal glands and urinary bladder. Recently seen by Hematology/Oncology. No options for further systemic therapy at this time. Please refer to BRIDGETTE Castro's documentation for discussion of other issues.
--- NOTE | 2019-07-29 14:33 | Emergency Department Note ---
Entered by Jhon Blas acting as a scribe for Sarwat Lara MD History of Present Illness General Chief complaint: Shortness of Breath/Dyspnea Time Seen by Provider: 07/29/19 11:24 Source: patient History of Present Illness Provider complaint: Flu like symptoms Onset (ago): day(s) 1 Location: chest Severity: mild Pain Consistency: + constant Relieved By: + none Associated symptoms: + cough, + fever/chills, + shortness of breath and + other (Sore throat) The patient is a 74 year old male who presents to the Emergency Room with complaints of constant flu like symptoms that started yesterday. The patient states he has a severe productive cough and is short of breath. He adds that his cough has caused him to develop a mild sore throat. The patient has also been running a fever. The patient states he has no history of using inhalers. The patient is currently on antibiotics for E. Coli but he is not sure which one. The patient saw his oncologist yesterday for metastatic melanoma. Home Medications Home Medications Medication Instructions Recorded Confirmed Type cholecalciferol (vitamin D3) 1,000 unit PO DAILY@0500 04/20/18 07/29/19 History [Vitamin D3] docusate sodium [Colace] 100 mg PO AMHS 04/20/18 07/29/19 History pramipexole 0.5 mg tablet 0.5 mg PO BID 06/01/18 07/29/19 History ondansetron HCl 4 mg tablet 4 mg PO Q8H PRN tab 08/10/18 07/29/19 History acetaminophen [Tylenol Extra 500 mg PO Q6H PRN 05/22/19 07/29/19 History Strength] calcitriol 0.25 mcg PO HS 05/22/19 07/29/19 History methylprednisolone sodium succ 125 mg IM DIRECTED PRN 05/22/19 07/29/19 History metoprolol succinate 50 mg PO BID 05/22/19 07/29/19 History triamcinolone acetonide 1 applic TOPICAL BID PRN 05/22/19 07/29/19 History torsemide 20 mg PO SUMOTUWEFRSA@0500 06/22/19 07/29/19 History Lantus Solostar U-100 Insulin 30 unit SC BID 07/02/19 07/29/19 History fludrocortisone 0.1 mg PO DAILY@0500 07/02/19 07/29/19 History hydrocortisone 10 mg PO DAILY@1200,1500 07/02/19 07/29/19 History hydrocortisone 20 mg PO DAILY@0500 07/02/19 07/29/19 History lorazepam 1 mg PO HS 07/02/19 07/29/19 History ertapenem 1 gm IV DAILY #12 ea 07/18/19 07/29/19 Rx gabapentin 100 mg PO TID 07/29/19 07/29/19 History lorazepam 1 mg PO DAILY PRN 07/29/19 07/29/19 History Allergies Allergy/AdvReac Type Severity Reaction Status Date / Time perflutren AdvReac Intermediate GI SYMPTOMS Verified 07/29/19 12:44 propylene glycol AdvReac Intermediate GI SYMPTOMS Verified 07/29/19 12:44 simvastatin AdvReac Intermediate JOINT AND Verified 07/29/19 12:44 MUSCLE PAIN Past Med/Surg History Medical History Adrenal insufficiency S/P LEFT ADRENALECTOMY- ON CHRONIC HYDROCORTISONE Anxiety (Chronic) 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- IMMUNOTHERAPY Q 2 WEEKS (on hold) Chronic back pain Degenerative disc disease Dyslipidemia (Chronic) H/O transfusion of packed red blood cells S/P 2 UNITS (2016) History of immunotherapy (Chronic) Keytruda x 2 Cycles (had to stop after 2nd cycle) Current Opdivo q 2 weeks (currently on hold) - started 05/2017 - 04/2018 Hypertension Morbid obesity Osteoarthritis Sleep apnea CPAP HS Stage 3 chronic kidney disease Surgical History History of colonoscopy 2016 History of esophagogastroduodenoscopy (EGD) 2017 History of tooth extraction Hx of 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 Mother Colon cancer, Onset Age: 85 Chemo and Resection - Alive and well now Sister Breast cancer, Onset Age: 55 Had Radiation - Alive and well now Sister No problems noted. Sister No problems noted. Sister No problems noted. Sister No problems noted. Brother No problems noted. Son No problems noted. Son No problems noted. 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 and A total of 10 systems reviewed and were otherwise negative Physical Exam Vital Signs Vital Signs - 24 hr 07/29/19 11:06 07/29/19 11:29 07/29/19 12:01 Temperature 37.4 C Temperature Source Oral Pulse Rate 160 H 143 H Pulse Rate [Right Radial] Pulse Rate from SpO2 Sensor Pulse Rhythm Irregular Respiratory Rate 30 H 30 H Respiratory Effort / Characteristics Spontaneous Labored Short of Breath SOB on Exertion Respiratory Depth Normal Respiratory Pattern Tachypnea Blood Pressure 126/66 Blood Pressure Mean 86 Blood Pressure Position Sitting Pulse Oximetry 90 90 90 Oxygen Delivery Method Nasal Cannula Room Air Room Air Oxygen Flow Rate 3 Sepsis Recent Fever Within 48 Hours Yes Sepsis New/Unexplained Change in Mental Status No Sepsis Action Taken by Nursing Physician Notified Pulse Oximetry Post Tiitration 97 07/29/19 12:04 07/29/19 12:07 07/29/19 12:09 Temperature Temperature Source Pulse Rate 159 H 155 H Pulse Rate [Right Radial] 143 H Pulse Rate from SpO2 Sensor 155 H 155 H Pulse Rhythm Respiratory Rate 30 H 22 Respiratory Effort / Characteristics Spontaneous Labored Short of Breath Spontaneous Labored Short of Breath Respiratory Depth Retractive Respiratory Pattern Tachypnea Blood Pressure 126/66 Blood Pressure Mean 96 Blood Pressure Position Pulse Oximetry 96 98 Oxygen Delivery Method Nasal Cannula Nasal Cannula Oxygen Flow Rate 3 3 Sepsis Recent Fever Within 48 Hours Sepsis New/Unexplained Change in Mental Status Sepsis Action Taken by Nursing Pulse Oximetry Post Tiitration 07/29/19 12:10 07/29/19 12:15 07/29/19 12:20 Temperature Temperature Source Pulse Rate 160 H 123 H 135 H Pulse Rate [Right Radial] Pulse Rate from SpO2 Sensor 143 H 125 H 137 H Pulse Rhythm Respiratory Rate 30 H 30 H 29 H Respiratory Effort / Characteristics Respiratory Depth Respiratory Pattern Blood Pressure 155/58 H Blood Pressure Mean 63 Blood Pressure Position Pulse Oximetry 97 97 97 Oxygen Delivery Method Oxygen Flow Rate Sepsis Recent Fever Within 48 Hours Sepsis New/Unexplained Change in Mental Status Sepsis Action Taken by Nursing Pulse Oximetry Post Tiitration 07/29/19 12:30 07/29/19 12:31 07/29/19 12:40 Temperature Temperature Source Pulse Rate 153 H 134 H 152 H Pulse Rate [Right Radial] Pulse Rate from SpO2 Sensor 148 H 148 H 140 H Pulse Rhythm Respiratory Rate 24 29 H 27 H Respiratory Effort / Characteristics Respiratory Depth Respiratory Pattern Blood Pressure 93/68 L Blood Pressure Mean 81 Blood Pressure Position Pulse Oximetry 96 97 97 Oxygen Delivery Method Oxygen Flow Rate Sepsis Recent Fever Within 48 Hours Sepsis New/Unexplained Change in Mental Status Sepsis Action Taken by Nursing Pulse Oximetry Post Tiitration 07/29/19 12:45 07/29/19 12:50 07/29/19 12:57 Temperature Temperature Source Pulse Rate 133 H 168 H 127 H Pulse Rate [Right Radial] Pulse Rate from SpO2 Sensor 135 H 149 H 142 H Pulse Rhythm Respiratory Rate 26 H 25 H 26 H Respiratory Effort / Characteristics Respiratory Depth Respiratory Pattern Blood Pressure 96/73 L 90/64 L Blood Pressure Mean 84 80 Blood Pressure Position Pulse Oximetry 97 97 96 Oxygen Delivery Method Oxygen Flow Rate Sepsis Recent Fever Within 48 Hours Sepsis New/Unexplained Change in Mental Status Sepsis Action Taken by Nursing Pulse Oximetry Post Tiitration 07/29/19 12:59 07/29/19 13:00 07/29/19 13:02 Temperature Temperature Source Pulse Rate 157 H 147 H 144 H Pulse Rate [Right Radial] Pulse Rate from SpO2 Sensor 153 H 138 H 142 H Pulse Rhythm Respiratory Rate 25 H 26 H 25 H Respiratory Effort / Characteristics Respiratory Depth Respiratory Pattern Blood Pressure 81/58 L 103/70 Blood Pressure Mean 71 84 Blood Pressure Position Pulse Oximetry 96 97 96 Oxygen Delivery Method Oxygen Flow Rate Sepsis Recent Fever Within 48 Hours Sepsis New/Unexplained Change in Mental Status Sepsis Action Taken by Nursing Pulse Oximetry Post Tiitration 07/29/19 13:10 07/29/19 13:17 07/29/19 13:20 Temperature Temperature Source Pulse Rate 114 H 87 88 Pulse Rate [Right Radial] Pulse Rate from SpO2 Sensor 135 H 87 53 L Pulse Rhythm Respiratory Rate 27 H 25 H 26 H Respiratory Effort / Characteristics Respiratory Depth Respiratory Pattern Blood Pressure 91/59 L 93/49 L 94/50 L Blood Pressure Mean 78 56 65 Blood Pressure Position Pulse Oximetry 95 96 95 Oxygen Delivery Method Oxygen Flow Rate Sepsis Recent Fever Within 48 Hours Sepsis New/Unexplained Change in Mental Status Sepsis Action Taken by Nursing Pulse Oximetry Post Tiitration 07/29/19 13:30 07/29/19 13:40 Temperature Temperature Source Pulse Rate 93 H 93 H Pulse Rate [Right Radial] Pulse Rate from SpO2 Sensor 90 93 H Pulse Rhythm Respiratory Rate 24 26 H Respiratory Effort / Characteristics Respiratory Depth Respiratory Pattern Blood Pressure 104/56 L 106/52 L Blood Pressure Mean 74 65 Blood Pressure Position Pulse Oximetry 96 96 Oxygen Delivery Method Oxygen Flow Rate Sepsis Recent Fever Within 48 Hours Sepsis New/Unexplained Change in Mental Status Sepsis Action Taken by Nursing Pulse Oximetry Post Tiitration General: Chronically-ill appearing older male in no acute distress. HEENT: Normal cephalic atraumatic. Pupils are equal round and reactive to light. Extraocular movements are intact. Oropharynx is pink with moist mucous membranes. No swelling of the mouth lips or tongue. Neck: Supple with a midline trachea. No meningeal signs or stiffness, no JVD or bruits. No Stridor. Chest: Lung sounds coarse with wheezing. No rhonchi. No increased work of breathing. Heart: Tachycardic rate and irregular rhythm. Abdomen: Soft nontender, nondistended without rebound guarding or rigidity. Extremities: No cyanosis or clubbing. No calf tenderness or asymmetry. 1+ LE edema bilaterally. Spine/Back. Non tender to palpation. No CVA tenderness Skin: Good turgor without rashes. Neurologic exam: Cranial nerves two through 12 are intact. Motor and sensation are intact and symmetrical throughout. Course Course 1123: Past medical records reviewed. The patient was evaluated in room C04, and a complete history and physical examination were performed. 1200: I reevaluated the paitent and looked at his X-ray. He is not in complete pulmonary edema so I ordered 250cc of fluids. 1242: I discussed the patient's case with Lisset PEREZ under Dr. Paula Collins Hospitalist. They agreed to accept the patient for further evaluation. 1311: I spoke to Dr. Aide Colon Cardiology and he agreed with the plan. 1317: I reevaluated the patient and he has converted to NSR with a rate of 80. 1334: I reevaluated the patient and he is resting comfortably in bed under stable condition. Consultations Consultation #1: I discussed the patient's case with Lisset Collins PAC under Dr. Paula Collins Hospitalist. They agreed to accept the patient for further evaluation. Time: 12:42 Consultation #2: I spoke to Dr. Aide Anglin and he agreed with the plan. Time: 13:11 Administered Medications Discontinued Medications Acetaminophen (Tylenol) 650 mg PO NOW STA Stop: 07/29/19 11:30 Last Admin: 07/29/19 11:56 Dose: 650 mg Documented by: [id number] Albuterol (Duoneb) 3 ml NEB NOW STA Stop: 07/29/19 11:30 Last Admin: 07/29/19 13:09 Dose: Not Given Documented by: [id number] Hydrocortisone Sodium Succinate (Solu-Cortef) 100 mg IV NOW STA Stop: 07/29/19 11:32 Last Admin: 07/29/19 11:56 Dose: 100 mg Documented by: [id number] Cefepime HCl (Maxipime) 2,000 mg in 20 mls @ 5 mls/min IV NOW STA; Protocol Stop: 07/29/19 11:59 Last Admin: 07/29/19 13:09 Dose: 5 mls/min Documented by: [id number] Sodium Chloride (Nss 1000ml) 250 mls @ 999 mls/hr IV .Q16M ONE Stop: 07/29/19 12:11 Last Infusion: 07/29/19 13:09 Dose: 0 mls/hr Documented by: [id number] Admin: 07/29/19 11:30 Dose: 999 mls/hr Documented by: [id number] Esmolol HCl (Brevibloc) 2,500 mg in 250 mls @ 0 mls/hr IV .Q0M [facility]; Protocol Stop: 08/28/19 12:44 Last Titration: 07/29/19 14:23 Dose: 0 mcg/kg/min, 0 mls/hr Documented by: [id number] Titration: 07/29/19 13:19 Dose: 0 mcg/kg/min, 0 mls/hr Documented by: [id number] Admin: 07/29/19 12:59 Dose: 50 mcg/kg/min, 44.3 mls/hr Documented by: [id number] Cosigned by: [id number] Magnesium Sulfate/Dextrose (Magnesium Sulfate / D5w) 1 gm in 100 mls @ 100 mls/hr IV ONE ONE Stop: 07/29/19 14:46 Last Infusion: 07/29/19 15:24 Dose: 0 mls/hr Documented by: [id number] Admin: 07/29/19 14:21 Dose: 100 mls/hr Documented by: [id number] Levalbuterol HCl (Xopenex 1.25mg/3ml Neb) 1.25 mg NEB NOW STA Stop: 07/29/19 11:43 Last Admin: 07/29/19 11:46 Dose: 1.25 mg Documented by: [id number] Critical Care Time Critical Care Time: Yes Total Critical Care Time: 52 I have personally spent greater than 52 minutes of critical care time in the direct management of this patient. This includes bedside care, interpretation of diagnostic studies, and testing, discussion with consultants, patient, and family members, and other required patient management activities. This 52 minutes is in excess of all separately billable procedures. Medical Decision Making Differential Diagnosis Differential Diagnosis includes: Sepsis, CHF, rapid Afib, electrolyte imbalance, and metabolic abnormality, amongst others. Medical Records Attestation: I reviewed the patient's medical records. Home Medications Current Medication List: was personally reviewed by me Laboratory Data Attestation: I reviewed the patient's lab results. Result diagrams: 07/29/19 11:49 07/29/19 11:49 Lab Results 07/29/19 07/29/19 07/29/19 Range/Units 11:49 11:49 11:49 WBC 8.54 (4.8-10.8) K/uL RBC 3.26 L (4.7-6.1) M/uL Hgb 7.8 L (14.0-18.0) g/dL POC Hgb (14.0-18.0) g/dl Hct 27.3 L (42-52) % POC Hct (42-52) % MCV 83.7 (80-100) fL MCH 23.9 L (25-34) pg MCHC 28.6 L (32-36) g/dL RDW Std Deviation 53.7 H (36.4-46.3) fL RDW Coeff of Scottie 17.4 H (11.5-14.5) % Plt Count 354 (130-400) K/uL MPV 9.5 (7.4-10.4) fL Immature Gran % (Auto) 0.1 % Neut % (Auto) 69.5 % Lymph % (Auto) 16.0 % [place] % (Auto) 10.9 % Eos % (Auto) 3.3 % Baso % (Auto) 0.2 % Immature Gran # (Auto) 0.01 (0.00-0.02) K/uL Neut # (Auto) 5.93 (1.4-6.5) K/uL Lymph # (Auto) 1.37 (1.2-3.4) K/uL [place] # (Auto) 0.93 H (0.11-0.59) K/uL Eos # (Auto) 0.28 (0-0.5) K/uL Baso # (Auto) 0.02 (0-0.2) K/uL Absolute Nucleated RBC 0.03 H (0-0) K/uL Nucleated RBC % (auto) 0.3 % Hypochromasia Present PT 10.6 (9.0-12.0) Seconds INR 1.0 (0.9-1.1) APTT 30.8 (21.0-31.0) Seconds PTT Ratio 1.1 POC Sodium (135-144) mEq/L Sodium 137 (136-145) mmol/L POC Potassium (3.3-5.0) mEq/L Potassium 4.8 (3.5-5.1) mmol/L POC Chloride (101-112) mEq/L Chloride 104 (98-107) mmol/L Carbon Dioxide 29 (21-32) mmol/L POC Total CO2 (24-31) mEq/l Anion Gap 4.0 (3-11) POC Anion Gap (16-25) mmol/L POC BUN (7-18) mg/dl BUN 34 H (7-18) mg/dl Creatinine 2.33 H (0.6-1.4) mg/dl POC Creatinine (0.6-1.3) mg/dl Est Cr Clr Drug Dosing 41.2 ml/min Est GFR ( Amer) 31.2 Est GFR (Non-Af Amer) 26.9 BUN/Creatinine Ratio 14.6 (10-20) Glucose 101 H (70-99) mg/dl POC Glucose (other) (70-99) mg/dl Lactate (0.4-2.0) mmol/L Calcium 8.3 L (8.5-10.1) mg/dl POC Ioniz Calcium Martinez (1.12-1.32) mmol/l Magnesium 1.7 L (1.8-2.4) mg/dl Total Bilirubin 0.5 (0.2-1) mg/dl AST 21 (15-37) U/L ALT 22 (12-78) U/L Alkaline Phosphatase 78 (45-117) U/L Troponin I (0-0.045) ng/ml Total Protein 6.5 (6.4-8.2) gm/dl Albumin 2.7 L (3.4-5.0) gm/dl Globulin 3.8 (2.5-4.0) gm/dl Albumin/Globulin Ratio 0.7 L (0.9-2) TSH (0.300-4.500) uIu/ml Influenza Type A (PCR) (Neg) Influenza Type B (PCR) (Neg) 07/29/19 07/29/19 07/29/19 Range/Units 11:49 11:49 11:51 WBC (4.8-10.8) K/uL RBC (4.7-6.1) M/uL Hgb (14.0-18.0) g/dL POC Hgb (14.0-18.0) g/dl Hct (42-52) % POC Hct (42-52) % MCV (80-100) fL MCH (25-34) pg MCHC (32-36) g/dL RDW Std Deviation (36.4-46.3) fL RDW Coeff of Scottie (11.5-14.5) % Plt Count (130-400) K/uL MPV (7.4-10.4) fL Immature Gran % (Auto) % Neut % (Auto) % Lymph % (Auto) % [place] % (Auto) % Eos % (Auto) % Baso % (Auto) % Immature Gran # (Auto) (0.00-0.02) K/uL Neut # (Auto) (1.4-6.5) K/uL Lymph # (Auto) (1.2-3.4) K/uL [place] # (Auto) (0.11-0.59) K/uL Eos # (Auto) (0-0.5) K/uL Baso # (Auto) (0-0.2) K/uL Absolute Nucleated RBC (0-0) K/uL Nucleated RBC % (auto) % Hypochromasia PT (9.0-12.0) Seconds INR (0.9-1.1) APTT (21.0-31.0) Seconds PTT Ratio POC Sodium (135-144) mEq/L Sodium (136-145) mmol/L POC Potassium (3.3-5.0) mEq/L Potassium (3.5-5.1) mmol/L POC Chloride (101-112) mEq/L Chloride (98-107) mmol/L Carbon Dioxide (21-32) mmol/L POC Total CO2 (24-31) mEq/l Anion Gap (3-11) POC Anion Gap (16-25) mmol/L POC BUN (7-18) mg/dl BUN (7-18) mg/dl Creatinine (0.6-1.4) mg/dl POC Creatinine (0.6-1.3) mg/dl Est Cr Clr Drug Dosing ml/min Est GFR ( Amer) Est GFR (Non-Af Amer) BUN/Creatinine Ratio (10-20) Glucose (70-99) mg/dl POC Glucose (other) (70-99) mg/dl Lactate 1.1 (0.4-2.0) mmol/L Calcium (8.5-10.1) mg/dl POC Ioniz Calcium Martinez (1.12-1.32) mmol/l Magnesium (1.8-2.4) mg/dl Total Bilirubin (0.2-1) mg/dl AST (15-37) U/L ALT (12-78) U/L Alkaline Phosphatase (45-117) U/L Troponin I < 0.015 (0-0.045) ng/ml Total Protein (6.4-8.2) gm/dl Albumin (3.4-5.0) gm/dl Globulin (2.5-4.0) gm/dl Albumin/Globulin Ratio (0.9-2) TSH 0.997 (0.300-4.500) uIu/ml Influenza Type A (PCR) Neg for Influ A (Neg) Influenza Type B (PCR) Neg for Influ B (Neg) 07/29/19 Range/Units 12:03 WBC (4.8-10.8) K/uL RBC (4.7-6.1) M/uL Hgb (14.0-18.0) g/dL POC Hgb 8.2 L (14.0-18.0) g/dl Hct (42-52) % POC Hct 24 L (42-52) % MCV (80-100) fL MCH (25-34) pg MCHC (32-36) g/dL RDW Std Deviation (36.4-46.3) fL RDW Coeff of Scottie (11.5-14.5) % Plt Count (130-400) K/uL MPV (7.4-10.4) fL Immature Gran % (Auto) % Neut % (Auto) % Lymph % (Auto) % [place] % (Auto) % Eos % (Auto) % Baso % (Auto) % Immature Gran # (Auto) (0.00-0.02) K/uL Neut # (Auto) (1.4-6.5) K/uL Lymph # (Auto) (1.2-3.4) K/uL [place] # (Auto) (0.11-0.59) K/uL Eos # (Auto) (0-0.5) K/uL Baso # (Auto) (0-0.2) K/uL Absolute Nucleated RBC (0-0) K/uL Nucleated RBC % (auto) % Hypochromasia PT (9.0-12.0) Seconds INR (0.9-1.1) APTT (21.0-31.0) Seconds PTT Ratio POC Sodium 137 (135-144) mEq/L Sodium (136-145) mmol/L POC Potassium 5.0 (3.3-5.0) mEq/L Potassium (3.5-5.1) mmol/L POC Chloride 101 (101-112) mEq/L Chloride (98-107) mmol/L Carbon Dioxide (21-32) mmol/L POC Total CO2 27 (24-31) mEq/l Anion Gap (3-11) POC Anion Gap 15.0 L (16-25) mmol/L POC BUN 29 H (7-18) mg/dl BUN (7-18) mg/dl Creatinine (0.6-1.4) mg/dl POC Creatinine 2.5 H (0.6-1.3) mg/dl Est Cr Clr Drug Dosing ml/min Est GFR ( Amer) Est GFR (Non-Af Amer) BUN/Creatinine Ratio (10-20) Glucose (70-99) mg/dl POC Glucose (other) 102 H (70-99) mg/dl Lactate (0.4-2.0) mmol/L Calcium (8.5-10.1) mg/dl POC Ioniz Calcium Martinez 1.13 (1.12-1.32) mmol/l Magnesium (1.8-2.4) mg/dl Total Bilirubin (0.2-1) mg/dl AST (15-37) U/L ALT (12-78) U/L Alkaline Phosphatase (45-117) U/L Troponin I (0-0.045) ng/ml Total Protein (6.4-8.2) gm/dl Albumin (3.4-5.0) gm/dl Globulin (2.5-4.0) gm/dl Albumin/Globulin Ratio (0.9-2) TSH (0.300-4.500) uIu/ml Influenza Type A (PCR) (Neg) Influenza Type B (PCR) (Neg) Imaging Data Radiologist's Impression: Radiology results as stated below per my review and the radiologist's interpretation: XR chest 1V portable CLINICAL HISTORY: 74 years-old Male presenting with SEPSIS. TECHNIQUE: Portable upright AP view of the chest was obtained. COMPARISON: 07/15/2019. FINDINGS: Borderline enlargement of the cardiac silhouette. Pulmonary vasculature unchanged in appearance. Mildly low lung volumes. No focal opacity allowing for body habitus and portable technique. No large effusion or pneumothorax. Degenerative changes of the thoracic spine. Surgical clips noted in the right axilla. Upper abdomen normal. IMPRESSION: 1. No change from prior exam. No focal infiltrate to suggest pneumonia. ACT 112: Negative or not required by law. Electronically signed by: Seven Ponce M.D. 07/29/2019 11:59 AM ECG Data Attestation: I personally reviewed and interpreted this ECG as follows: Indication: + SOB/dyspnea Rate (beats per minute): 158 Rhythm: + atrial fibrillation (with RVR) ECG ST segments: no ST depression and no ST elevation Comparison ECG Date: from (07/17/19) Change: the following changes noted (Afib has replaced NSR) Additional Comments: REPEAT EKG NSR 92, LBBB, no St elevation or depression, NSR has replaced Afib. Blood Pressure Blood Pressure Findings: Low blood pressure MDM Narrative This patient comes in as described above peers brought in by EMS. I did talk to the medic prior to arrival and gave a ALS medical command. The medic stated that he had a fever at home and shortness of breath and was tachycardic with rapid A. fib. I recommended IV fluids as I felt a rapid A. fib is likely compensatory. The patient does have a history of A. fib. Upon arrival he says he feels okay but does have some increased work of breathing sounds junky and wheezy. He was given albuterol/Atrovent neb. He does have a PICC line in his left arm we also establish a second IV in his right arm. At times, he would be on the hypotensive side but I think a blood pressure cuff is mostly positional. His initial EKG shows a rapid A. fib with underlying bundle branch block. No acute ST segment elevation. Chest x-ray does not show any pneumonia or any definite CHF. In light of this, he was given additional IV fluid boluses. He was also given 100 mg of Solu-Cortef IV as he does have history of adrenal insufficiency. Blood cultures were obtained as well. His white count and lactic acid came back normal. His hemoglobin is low at 7.9 but this is about baseline for him as of late. Given the fact that his other markers are looking good, I felt that we can now lower the rate a little bit and we ordered IV esmolol drip. I chose this because if we ran in trouble with his pressure we could turn it off and it would dissipate much quicker than metoprolol. We turned this on and within a couple minutes he converted to normal sinus rhythm returned as well drip off. I do think the patient needs to be admitted for further treatment and evaluation and have consulted the [facility] team and Dr. Mitchell to see him in the ER for these measures. Impression & Plan Atrial fibrillation with RVR, Melanoma, SOB (shortness of breath), URI (upper respiratory infection), Adrenal insufficiency Discharge Plan Visit Data *Final* Discharge Date/Time: 07/29/19 15:22 Chief Complaint: Shortness of Breath/Dyspnea ED Provider: Sarwat Lara Discharge Problem: Atrial fibrillation with RVR, Melanoma, SOB (shortness of breath), URI (upper respiratory infection), Adrenal insufficiency Patient Disposition: Admitted As Inpatient Discharge Instructions Interventions: ED Discharge Assessment Last Done: 07/29/19 15:22 Discharge Problem: Melanoma Qualifiers: Melanoma location: unspecified site Qualified Code(s): C43.9 - Malignant melanoma of skin, unspecified URI (upper respiratory infection) Qualifiers: URI type: unspecified URI Qualified Code(s): J06.9 - Acute upper respiratory infection, unspecified The scribe's documentation has been prepared under my direction and personally reviewed by me in its entirety. I confirm that the note above accurately reflec ts all work, treatment, procedures, and medical decision making performed by me.
[2019-07-29 15:31] LABS: Thyroid Stimulating Hormone 0.997 uIu/ml (0.300-4.500); Troponin I < 0.015 ng/ml (0-0.045)
[2019-07-29] MEDS ORDERED: DEXTROSE 50% 50 ML SYRINGE IV PRN (15:40)
[2019-07-29] MEDS ORDERED: CARBOHYDRATES FOR HYPOGLYCEMIA PO PRN (15:40)
[2019-07-29] MEDS ORDERED: ACETAMINOPHEN 325 MG TAB PO PRN (15:40)
[2019-07-29] MEDS ORDERED: LEVALBUTEROL 1.25MG/0.5ML NEB INH PRN (15:40)
[2019-07-29] MEDS ORDERED: GLUCOSE 10 TABS/TUBE PO PRN (15:40)
[2019-07-29] MEDS ORDERED: ONDANSETRON INJ 2 MG/ML 2 ML VIAL IV PRN (15:40)
[2019-07-29] MEDS ORDERED: GLUCAGON FOR INJ 1 MG VIAL SQ PRN (15:40)
[2019-07-29] MEDS ORDERED: IPRATROPIUM BROMIDE NEB SOLN 0.02% 2.5 ML VIAL INH PRN (15:40)
[2019-07-29] MEDS ORDERED: GLUCOSE 40% GEL 15 GM TUBE PO PRN (15:40)
[2019-07-29] MEDS ORDERED: XOPENEX/ATROVENT 1.25mg/0.5MG NEB COMBO NEB PRN (15:40)
[2019-07-29] MEDS ORDERED: HYDROCORTISONE SOD SUCCINATE 100 MG/2 ML VIAL IV SCH (15:40)
[2019-07-29] MEDS ORDERED: LORazepam 1 MG TAB PO PRN (15:53)
[2019-07-29] MEDS ORDERED: OSELTAMIVIR PHOSPHATE SUSP 30 MG/5 ML UDP PO ONE (16:00)
--- NOTE | 2019-07-29 16:52 | Electrocardiogram Report ---
Test Reason : Blood Pressure : / mmHG Vent. Rate : 092 BPM Atrial Rate : 092 BPM P-R Int : 198 ms QRS Dur : 124 ms QT Int : 376 ms P-R-T Axes : 061 034 035 degrees QTc Int : 464 ms Normal sinus rhythm with sinus arrhythmia Left bundle branch block Abnormal ECG When compared with ECG of 29-JUL-2019 11:32, Significant changes have occurred Confirmed by Alireza Barrios ([id number]) on 07/29/2019 4:52:34 PM Referred By: REFERRED SELF Confirmed By:Alireza Barrios
[2019-07-29] MEDS: INSULIN ASPART 100 UNITS/ML 3 ML PEN SC SCH ×2 (17:01→21:08)
[2019-07-29] MEDS: GABAPENTIN 100 MG CAP PO SCH ×2 (17:03→21:08)
[2019-07-29] MEDS: DOXYCYCLINE HYCLATE 100 MG CAP PO SCH ×2 (17:03→21:10)
[2019-07-29] MEDS ORDERED: AMIODARONE / D5W 150 MG/100 ML BAG IV STA (17:47)
[2019-07-29] MEDS ORDERED: AMIODARONE IV BOLUS / DRIP IV STA (17:47)
[2019-07-29] MEDS: ERTAPENEM SODIUM 1,000 MG in SODIUM CHLORIDE 0.9% 50 ML IV SCH (17:52)
--- NOTE | 2019-07-29 17:52 | Cardiology Consultation ---
Date of Consultation July 29, 2019 Assessment & Plan (1) Atrial fibrillation with RVR: Patient with paroxysmal atrial fibrillation in the setting of febrile illness, and symptoms suggestive of respiratory tract infection. Review of previous admission from Nov, 2018, patient did have wide-complex tachycardia at that time, felt to be atrial fibrillation with intermittent, perhaps rate related left bundle branch block. In June, as well as an EKG tracings performed in the meantime in our office, specifically in April,, the QRS was narrow. He has reverted back to atrial fibrillation with rapid ventricular response, left bundle branch block. He tolerated amiodarone on his previous admission, and this is been ordered again to be administered via infusion. His prior to hospital dose of metoprolol will be continued. He is not a candidate for anticoagulation for stroke prophylaxis given his severe anemia. Avoid QT prolonging antibiotics. Currently he is on doxycycline and Tamiflu which I think are reasonable. (2) URI (upper respiratory infection): (3) Severe anemia: History of Present Illness Attending Physician: Varinder Mitchell MD History of Present Illness Zia Martinez is a 74 year old male seen in cardiology consultation per the request of Dr. Mitchell for the evaluation of atrial fibrillation/atrial flutter with rapid ventricular response. The patient's most recent outpatient cardiology follow-up visit had been in April, at which time sinus rhythm was confirmed on EKG. The patient presents to the emergency department with fever and cough. His been found to be in wide-complex tachycardia which on further inspection of EKG appears to be atrial fibrillation with left bundle branch block at 158 bpm. His blood pressure was relatively low, and therefore he was treated acutely with esmolol in the emergency room with subsequent spontaneous conversion to sinus rhythm. Just at about 5 PM however on 07/29/2019 when he arrived to the floor, he was back in atrial fibrillation. Per review of previous EKGs, he does seem to have an intermittent left bundle branch block. 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 He also has a history of anemia and has required multiple transfusions in the past, presenting hemoglobin today was 7.8. Echocardiogram at the time of his past admission in Nov, 2018 revealed mild left ventricular systolic dysfunction with ejection fraction in the range of 40 to 45%, with abnormal septal motion consistent with left bundle branch block. Allergies Allergy/AdvReac Type Severity Reaction Status Date / Time perflutren AdvReac Intermediate GI SYMPTOMS Verified 07/29/19 12:44 propylene glycol AdvReac Intermediate GI SYMPTOMS Verified 07/29/19 12:44 simvastatin AdvReac Intermediate JOINT AND Verified 07/29/19 12:44 MUSCLE PAIN Home Medications Home Medications Medication Instructions Recorded Confirmed Type cholecalciferol (vitamin D3) 1,000 unit PO DAILY@0500 04/20/18 07/29/19 History [Vitamin D3] docusate sodium [Colace] 100 mg PO AMHS 04/20/18 07/29/19 History pramipexole 0.5 mg tablet 0.5 mg PO BID 06/01/18 07/29/19 History ondansetron HCl 4 mg tablet 4 mg PO Q8H PRN tab 08/10/18 07/29/19 History acetaminophen [Tylenol Extra 500 mg PO Q6H PRN 05/22/19 07/29/19 History Strength] calcitriol 0.25 mcg PO HS 05/22/19 07/29/19 History methylprednisolone sodium succ 125 mg IM DIRECTED PRN 05/22/19 07/29/19 History metoprolol succinate 50 mg PO BID 05/22/19 07/29/19 History triamcinolone acetonide 1 applic TOPICAL BID PRN 05/22/19 07/29/19 History torsemide 20 mg PO SUMOTUWEFRSA@0500 06/22/19 07/29/19 History Lantus Solostar U-100 Insulin 30 unit SC BID 07/02/19 07/29/19 History fludrocortisone 0.1 mg PO DAILY@0500 07/02/19 07/29/19 History hydrocortisone 10 mg PO DAILY@1200,1500 07/02/19 07/29/19 History hydrocortisone 20 mg PO DAILY@0500 07/02/19 07/29/19 History lorazepam 1 mg PO HS 07/02/19 07/29/19 History ertapenem 1 gm IV DAILY #12 ea 07/18/19 07/29/19 Rx gabapentin 100 mg PO TID 07/29/19 07/29/19 History lorazepam 1 mg PO DAILY PRN 07/29/19 07/29/19 History Patient History Medical History Adrenal insufficiency S/P LEFT ADRENALECTOMY- ON CHRONIC HYDROCORTISONE Anxiety (Chronic) 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- IMMUNOTHERAPY Q 2 WEEKS (on hold) Chronic back pain Degenerative disc disease Dyslipidemia (Chronic) H/O transfusion of packed red blood cells S/P 2 UNITS (2016) History of immunotherapy (Chronic) Keytruda x 2 Cycles (had to stop after 2nd cycle) Current Opdivo q 2 weeks (currently on hold) - started 05/2017 - 04/2018 Hypertension Morbid obesity Osteoarthritis Sleep apnea CPAP HS Stage 3 chronic kidney disease Surgical History History of colonoscopy 2016 History of esophagogastroduodenoscopy (EGD) 2017 History of tooth extraction Hx of 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 Mother Colon cancer, Onset Age: 85 Chemo and Resection - Alive and well now Sister Breast cancer, Onset Age: 55 Had Radiation - Alive and well now Sister No problems noted. Sister No problems noted. Sister No problems noted. Sister No problems noted. Brother No problems noted. Son No problems noted. Son No problems noted. Social History Preferred Language: Montserratian Communication Ability: Effective Visual Impairment: Limited Hearing Ability: Hard of Hearing [employer] Required: No Beliefs That Will Affect Care: None marital status: Single Current Living Situation: Significant Other current occupational status: retired current occupation: Retired - [employer] [place] Feels Safe at Home: Yes Safety Concerns: Feels Safe At This Time Smoking Status: Never smoker Tobacco Type: smokeless tobacco ; Second Hand Exposure: No ; Hx Alcohol Use: No Hx Substance Use: No caffeine: Yes (2 cups of coffee/day ) during the past year weight has: remained stable Review of Systems Review of Systems: All systems reviewed & are unremarkable except as noted in HPI & below Cardiovascular: + dyspnea; no palpitations Additional Comments: Patient has no subjective symptoms of his tachycardia Physical Exam Physical Exam: Temp Pulse Resp BP Pulse Ox 36.8 C 84 22 105/47 L 92 07/29/19 15:01 07/29/19 15:56 07/29/19 15:01 07/29/19 15:01 07/29/19 15:01 Constitutional: WD/WN, vitals as above Respiratory: Coarse breath sounds Cardiovascular: Rate/Rhythm: + irregularly irregular Heart Sounds: no murmur Extremities: no edema Gastrointestinal (Abdomen): normal bowel sounds, soft, nontender, no hepatosplenomegaly Neurologic: patellar DTR's 2+ bilat, sensation intact Results & Data Vital Signs (Past 12 Hours) Vital Signs Temp Pulse Pulse Resp BP BP Pulse Ox 07/29/19 15:56 84 07/29/19 15:01 36.8 C 79 22 105/47 L 92 07/29/19 14:40 89 19 106/49 L 97 07/29/19 14:30 86 24 95/48 L 97 07/29/19 14:23 88 20 97 07/29/19 14:21 89 23 103/55 L 97 07/29/19 14:20 89 21 95/58 L 97 07/29/19 14:10 89 25 H 107/52 L 96 07/29/19 14:00 92 H 26 H 117/53 L 97 07/29/19 13:50 92 H 21 110/52 L 97 07/29/19 13:40 93 H 26 H 106/52 L 96 07/29/19 13:30 93 H 24 104/56 L 96 07/29/19 13:20 88 26 H 94/50 L 95 07/29/19 13:17 87 25 H 93/49 L 96 07/29/19 13:10 114 H 27 H 91/59 L 95 07/29/19 13:02 144 H 25 H 96 07/29/19 13:00 147 H 26 H 103/70 97 07/29/19 12:59 157 H 25 H 81/58 L 96 07/29/19 12:57 127 H 26 H 90/64 L 96 07/29/19 12:50 168 H 25 H 97 07/29/19 12:45 133 H 26 H 96/73 L 97 07/29/19 12:40 152 H 27 H 97 07/29/19 12:31 134 H 29 H 93/68 L 97 07/29/19 12:30 153 H 24 96 07/29/19 12:20 135 H 29 H 97 07/29/19 12:15 123 H 30 H 155/58 H 97 07/29/19 12:10 160 H 30 H 97 07/29/19 12:07 155 H 143 H 22 98 07/29/19 12:04 159 H 30 H 126/66 96 07/29/19 12:01 37.4 C 143 H 30 H 126/66 90 07/29/19 11:29 160 H 30 H 90 07/29/19 11:06 90 Diagnostic Findings EKG performed 07/29/2019 at 1335 revealed normal sinus rhythm with left bundle branch block. Compared to the prior tracing dated 07/29/2019 at 11:32 AM, sinus rhythm has replaced atrial fibrillation with left bundle branch block and the rate had improved from 158bpm to 92 bpm. EKG performed 07/17/2019: Normal sinus rhythm at 87 bpm, narrow QRS complex, QRS duration 86 ms at that time, without left bundle branch block. (1) URI (upper respiratory infection) URI type: unspecified URI Qualified Code(s): J06.9 - Acute upper respiratory infection, unspecified
[2019-07-29] MEDS ORDERED: AMIODARONE / D5W 360 MG/200 ML BAG IV SCH (18:00)
[2019-07-29] MEDS: HYDROCORTISONE SOD 50 MG in SYRINGE 0 ML IV SCH (19:49)
[2019-07-29] MEDS: DOCUSATE SODIUM 100 MG CAP PO SCH (21:06)
[2019-07-29] MEDS: INSULIN GLARGINE SOLOSTAR 100 UNITS/ML 3 ML PEN SC SCH (21:06)
[2019-07-29] MEDS: PRAMIPEXOLE DIHYDROCHLO 0.5 MG TAB PO SCH (21:07)
[2019-07-29] MEDS: CALCITRIOL 0.25 MCG CAPSULE PO SCH (21:09)
[2019-07-29] MEDS: METOPROLOL SUCC 50MG EXT REL TAB PO SCH (21:10)
[2019-07-29] MEDS: OSELTAMIVIR PHOSPHATE SUSP 30 MG/5 ML UDP PO SCH (21:17)
[2019-07-29] MEDS: AMIODARONE / D5W 360 MG/200 ML BAG IV SCH (23:41)
[2019-07-30] MEDS: HYDROCORTISONE SOD 50 MG in SYRINGE 0 ML IV SCH ×2 (04:06→11:53)
[2019-07-30] MEDS: CHOLECALCIFEROL 1,000 UNITS TAB PO SCH (04:07)
[2019-07-30 04:24] LABS: Appearance Urine Cloudy (Clear); Bilirubin Urine Negative (Negative); Blood Urine 3+ (Negative); Color Urine Yellow; Epithelial Cell Urine Auto 20-30 /lpf (0-5); Glucose Urine UA Negative (Negative); Ketones Urine Negative (Negative); Leukocyte Esterase Urine Trace (Negative); Nitrite Urine Negative (Negative); Protein Urine 2+ (Negative); Specific Gravity Urine 1.017 (1.000-1.030); Urobilinogen Urine Negative (Negative)
[2019-07-30 04:40] LABS: RBC Urine Automated >30 /hpf (0-4)
[2019-07-30 04:41] LABS: Bacteria Urine Automated 3+ (Negative); Mucus Urine Present (None Prsent)
[2019-07-30] MEDS: FLUDROCORTISONE ACETATE 0.1 MG TAB PO SCH (05:31)
[2019-07-30 06:46] LABS: Hematocrit (blood only) 24.2 % (42-52); Hemoglobin 7.1 g/dL (14.0-18.0); Mean Corpuscular Hemoglobin 24.1 pg (25-34); Mean Corpuscular Hgb Conc 29.3 g/dL (32-36); Mean Corpuscular Volume 82.3 fL (80-100); Mean Platelet Volume 9.2 fL (7.4-10.4); Platelet Count 291 K/uL (130-400); RDW Coefficient of Variation 17.3 % (11.5-14.5); RDW Standard Deviation 52.4 fL (36.4-46.3); Red Blood Count 2.94 M/uL (4.7-6.1); White Blood Count 7.91 K/uL (4.8-10.8)
[2019-07-30] MEDS ORDERED: SODIUM CHLORIDE 0.9% 250 ML IV PRN (06:54)
[2019-07-30 07:21] LABS: BUN Creatinine Ratio 15.3 (10-20); Calcium 8.6 mg/dl (8.5-10.1); Creatinine Clr Calc Pharmacy 34.2 ml/min; Est GFR (African American) 25.8; Est GFR (Non-African American) 22.2; Magnesium 2.2 mg/dl (1.8-2.4); Potassium 4.9 mmol/L (3.5-5.1)
[2019-07-30] MEDS: INSULIN ASPART 100 UNITS/ML 3 ML PEN SC SCH ×4 (08:26→20:38)
[2019-07-30] MEDS: DOCUSATE SODIUM 100 MG CAP PO SCH ×2 (08:27→20:36)
[2019-07-30] MEDS: INSULIN GLARGINE SOLOSTAR 100 UNITS/ML 3 ML PEN SC SCH ×2 (08:27→20:36)
[2019-07-30] MEDS: DOXYCYCLINE HYCLATE 100 MG CAP PO SCH ×2 (08:28→20:38)
[2019-07-30] MEDS: OSELTAMIVIR PHOSPHATE SUSP 30 MG/5 ML UDP PO SCH (08:28)
[2019-07-30] MEDS: METOPROLOL SUCC 50MG EXT REL TAB PO SCH (08:28)
[2019-07-30] MEDS: GABAPENTIN 100 MG CAP PO SCH ×3 (08:28→20:37)
[2019-07-30] MEDS: AMIODARONE / D5W 360 MG/200 ML BAG IV SCH ×2 (11:18→22:46)
[2019-07-30] MEDS ORDERED: AMIODARONE 200 MG TAB PO ONE (12:03)
--- NOTE | 2019-07-30 12:07 | Cardiology Progress Note ---
Date of Service July 30, 2019 Assessment & Plan (1) Atrial fibrillation with RVR: Patient converted to sinus rhythm with IV amiodarone. Left bundle branch block without significant bradycardia or pauses noted on telemetry. Recurrent A. fib likely provoked by febrile illness/URI. He is not a candidate for anticoagulation due to severe anemia and h/o gross hematuria. Reduce oral metoprolol to 50 mg daily. Continue IV amiodarone for an additional 24 hours. Add oral amiodarone 200 mg twice daily. Continue to monitor closely with documented history of asymptomatic pauses and tachybradycardia syndrome in the past. Potential need for pacemaker is a possible consideration due to need for AV kristel blocking agents for treatment of recurrent atrial fibrillation. Avoid antibiotics/medications with the potential to prolong the QT interval. (2) URI (upper respiratory infection): (3) Severe anemia: Subjective Patient seen and examined at the bedside. Converted to sinus rhythm yesterday afternoon. No recurrent atrial fibrillation overnight. Tolerating IV amiodarone infusion. Left bundle branch block noted on telemetry as well as repeat ECG in sinus rhythm. Per review of records, patient treated with amiodarone initially during hospitalization in June. He was also anticoagulated, however, discontinued secondary to severe anemia and hematuria. There was a recorded pause during hospitalization in June. Potential need for pacemaker implantation in the future discussed with patient at that time per review of cardiology notes. Patient currently resting comfortably. Admitted with febrile illness/upper res piratory tract infection. + Cough with scant sputum production. Receiving 1 unit packed red blood cells now due to severe anemia. Tolerated his a.m. meal. No current signs of GI/ blood loss or hematuria. Review of Systems Review of Systems: All systems reviewed & are unremarkable except as noted in HPI & below +cough, +wheeze, +B/L pedal edema Physical Exam Constitutional: well developed, + ill appearing and + morbidly obese Respiratory: + cough; no labored breathing, no retractions and does not use accessory muscles Auscultation: + rhonchi and + wheezes Cardiovascular: Rate/Rhythm: regular rate and regular rhythm Heart Sounds: normal S1 and normal S2 Vessels: radial pulses present; no JVD Extremities: + pedal edema Gastrointestinal (Abdomen): Inspection/Auscultation: + abdomen distended and normal bowel sounds Percussion/Palpation: + hepatosplenomegaly; abdomen nontender, no guarding and abdomen not rigid Musculoskeletal: no cyanosis or clubbing, extremities motor strength 5/5 Skin: no rashes, warm and dry Neurologic: PERRL, EOMI, accommodation nl, no face palsy, no dysarthria Psychiatric: A+Ox3, euthymic affect Results & Data Vital Signs (Past 12 Hours) Vital Signs Temp Pulse Pulse Resp BP BP Pulse Ox 07/30/19 11:11 36.6 C 65 110/66 100 07/30/19 11:00 67 07/30/19 10:45 61 07/30/19 10:30 59 L 07/30/19 10:15 58 L 07/30/19 10:11 36.8 C 62 20 127/75 98 07/30/19 10:00 61 07/30/19 09:45 65 07/30/19 09:41 36.8 C 64 22 127/75 98 07/30/19 09:30 66 07/30/19 09:26 36.7 C 63 20 128/61 98 07/30/19 09:15 64 07/30/19 09:00 36.6 C 67 20 114/50 L 100 07/30/19 08:45 66 07/30/19 08:30 66 07/30/19 08:20 68 07/30/19 08:15 65 07/30/19 08:00 66 07/30/19 07:45 71 07/30/19 07:43 59 L 07/30/19 07:30 61 07/30/19 07:15 62 07/30/19 07:00 62 07/30/19 06:51 36.5 C 61 20 123/75 96 07/30/19 06:45 61 07/30/19 06:30 62 07/30/19 06:15 60 07/30/19 06:00 59 L 07/30/19 05:45 59 L 07/30/19 05:30 60 07/30/19 05:15 57 L 07/30/19 05:00 60 07/30/19 04:45 63 07/30/19 04:30 60 07/30/19 04:15 61 07/30/19 04:01 65 07/30/19 04:00 36.6 C 61 19 104/53 L 99 07/30/19 03:45 65 07/30/19 03:30 54 L 07/30/19 03:15 58 L 07/30/19 03:00 62 07/30/19 02:45 61 07/30/19 02:30 63 07/30/19 02:15 64 07/30/19 02:00 61 07/30/19 01:45 68 07/30/19 01:30 66 07/30/19 01:15 73 07/30/19 01:00 65 07/30/19 00:45 69 07/30/19 00:30 70 07/30/19 00:15 56 L (1) URI (upper respiratory infection) URI type: unspecified URI Qualified Code(s): J06.9 - Acute upper respiratory infection, unspecified
[2019-07-30 13:12] LABS: Hematocrit (blood only) 26.9 % (42-52); Hemoglobin 8.1 g/dL (14.0-18.0)
--- NOTE | 2019-07-30 14:21 | Hospitalist Progress Note ---
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 coli ESBL UTI and receiving intravenous ertapenem at [facility], presented to ER with c/o SOB, cough, fever. In ER patient found to have heart rate 160, RR: 30, 90% on room air, BP 126/66, T: 37.4C. He was given total 850 mL and SS bolus, esmolol started. In ER patient converted to sinus rhythm and esmolol drip was stopped. -cardiology 07/30/2019 note "Patient converted to sinus rhythm with IV amiodarone. Left bundle branch block without significant bradycardia or pauses noted on telemetry. Recurrent A. fib likely provoked by febrile illness/URI. He is not a candidate for anticoagulation due to severe anemia and h/o gross hematuria. Reduce oral metoprolol to 50 mg daily. Continue IV amiodarone for an additional 24 hours. Add oral amiodarone 200 mg twice daily. Continue to monitor closely with documented history of asymptomatic pauses and tachybradycardia syndrome in the past. Potential need for pacemaker is a possible consideration due to need for AV kristel blocking agents for treatment of recurrent atrial fibrillation. Avoid antibiotics/medications with the potential to prolong the QT interval." (2) Hypoxia: (3) Cough: Hypoxia with cough is suspected to be from viral upper respiratory infection -Influenza swab by PCR is negative, Tamiflu is discontinued and droplet precautions stopped on 07/30/2019 -continue empiric Doxycycline (4) Hypomagnesemia: -admission serum magnesium 1.7 on 07/29/2019 -after magnesium repletion, serum magnesium is 2.2 by 07/30/2019 (5) Anemia: -patient with history of anemia secondary to hematuria -admission hemoglobin 7.8 on 07/29/2019; patient denies hematuria recently but hemoglobin is 7.1 in AM of 07/30/2019 and patient is s/p 1 unit of PRBC with subsequent hemoglobin as 8.1 -monitor blood counts (6) UTI due to extended-spectrum beta lactamase (ESBL) producing Escherichia coli: -Recent ESBL UTI on urine culture 07/15/2019. Was started on ertapenem daily on 07/17/2019 for 2 week course via midline -last day of Ertapenem is for 07/30/2019 but will continue Ertapenem for now until return of this admission urine culture (7) CKD (chronic kidney disease): Chronic Kidney Disease stage III to stage IV -monitor renal function (8) Cardiomyopathy: 11/2018 echo: Borderline concentric left ventricular hypertrophy, no wall motion abnormalities, EF: 50-55% -can consider resuming home dose torsemide based on renal function as on 07/31/2019 (9) Adrenal insufficiency: -In ER given hydrocortisone 100 mg IV -stopped IV hydrocortisone and transition to home dose oral hydrocortisone on 07/30/2019 -Continue home Florinef (10) Diabetes type 2, uncontrolled: TYPE 2 DIABETES MELLITUS WITH ANALYTICAL SCIENTIST 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 HbA1c: 10.2 in 06/2019 Following with nurse chemical dependency at [facility] [place]-Dr. Fonseca. 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 Most recent bladder resection on 05/14/[address] Moore at [facility] [place]. Currently follows with Dr. Rosario -No further treatment recommended at this time'' (12) Sleep apnea: -CPAP at bedtime (13) RLS (restless legs syndrome): -Continue pramipexole DVT Prophylaxis -SCDs with anemia Full Code Subjective Patient denies hematuria as seen on last admission. However, hemoglobin is 7.1 in AM of 07/30/2019 and patient is s/p 1 unit of PRBC. Patient breathing comfortably. No acute distress. denies acute pain of chest or abdomen or elsewhere. No dizziness. no headache Review of Systems Review of Systems: All systems reviewed & are unremarkable except as noted in HPI & below Physical Exam Constitutional: + obese Eyes: PERRL, conjunctivae normal, anicteric sclerae EOM intact bilaterally ENMT: external ear and nose normal, oropharynx normal Neck: trachea midline, no thyromegaly normal visual inspection Respiratory: normal respiratory effort Cardiovascular: Rate/Rhythm: regular rate Gastrointestinal (Abdomen): normal bowel sounds, soft, nontender, no hepatosplenomegaly Musculoskeletal: Head/Neck/Chest: normocephalic and head atraumatic bilateral lower extremity edema Neurologic: PERRL, EOMI, accommodation nl, no face palsy, no dysarthria CN's II-XI intact bilaterally Psychiatric: A+Ox3, euthymic affect Results & Data Vital Signs (Past 12 Hours) Vital Signs Temp Pulse Pulse Resp BP BP Pulse Ox 07/30/19 12:03 36.6 C 70 22 130/58 L 100 07/30/19 11:11 36.6 C 65 110/66 100 07/30/19 11:00 67 07/30/19 10:45 61 07/30/19 10:30 59 L 07/30/19 10:15 58 L 07/30/19 10:11 36.8 C 62 20 127/75 98 07/30/19 10:00 61 07/30/19 09:45 65 07/30/19 09:41 36.8 C 64 22 127/75 98 07/30/19 09:30 66 07/30/19 09:26 36.7 C 63 20 128/61 98 07/30/19 09:15 64 07/30/19 09:00 36.6 C 67 20 114/50 L 100 07/30/19 08:45 66 07/30/19 08:30 66 07/30/19 08:20 68 07/30/19 08:15 65 07/30/19 08:00 66 07/30/19 07:45 71 07/30/19 07:43 59 L 07/30/19 07:30 61 07/30/19 07:15 62 07/30/19 07:00 62 07/30/19 06:51 36.5 C 61 20 123/75 96 07/30/19 06:45 61 07/30/19 06:30 62 07/30/19 06:15 60 07/30/19 06:00 59 L 07/30/19 05:45 59 L 07/30/19 05:30 60 07/30/19 05:15 57 L 07/30/19 05:00 60 07/30/19 04:45 63 07/30/19 04:30 60 07/30/19 04:15 61 07/30/19 04:01 65 07/30/19 04:00 36.6 C 61 19 104/53 L 99 07/30/19 03:45 65 07/30/19 03:30 54 L 07/30/19 03:15 58 L 07/30/19 03:00 62 07/30/19 02:45 61 07/30/19 02:30 63 (1) CKD (chronic kidney disease) Chronic kidney disease stage: unspecified stage Qualified Code(s): N18.9 - Chronic kidney disease, unspecified
[2019-07-30] MEDS: PRAMIPEXOLE DIHYDROCHLO 0.5 MG TAB PO SCH ×2 (15:54→20:37)
[2019-07-30] MEDS: HYDROCORTISONE 10 MG TAB PO SCH (15:55)
[2019-07-30] MEDS: AMIODARONE 200 MG TAB PO SCH (16:59)
[2019-07-30] MEDS: ERTAPENEM SODIUM 1,000 MG in SODIUM CHLORIDE 0.9% 50 ML IV SCH (17:02)
[2019-07-30] MEDS: CALCITRIOL 0.25 MCG CAPSULE PO SCH (20:38)
[2019-07-31] MEDS: HYDROCORTISONE 10 MG TAB PO SCH ×3 (05:48→15:19)
--- NOTE | 2019-07-31 05:48 | Electrocardiogram Report ---
Test Reason : Blood Pressure : / mmHG Vent. Rate : 060 BPM Atrial Rate : 060 BPM P-R Int : 198 ms QRS Dur : 134 ms QT Int : 452 ms P-R-T Axes : 050 058 000 degrees QTc Int : 452 ms Sinus rhythm with Premature atrial complexes Left bundle branch block Abnormal ECG When compared with ECG of 29-JUL-2019 13:35, Vent. rate has decreased BY 32 BPM Confirmed by Milton Browning ([id number]) on 07/31/2019 5:48:14 AM Referred By: REFERRED SELF Confirmed By:Milton Browning
[2019-07-31] MEDS: CHOLECALCIFEROL 1,000 UNITS TAB PO SCH (05:49)
[2019-07-31] MEDS: FLUDROCORTISONE ACETATE 0.1 MG TAB PO SCH (05:49)
[2019-07-31 07:37] LABS: Hematocrit (blood only) 26.9 % (42-52); Hemoglobin 7.9 g/dL (14.0-18.0); Mean Corpuscular Hemoglobin 24.1 pg (25-34); Mean Corpuscular Hgb Conc 29.4 g/dL (32-36); Mean Platelet Volume 9.9 fL (7.4-10.4); Nucleated RBC # (auto) 0.03 K/uL (0-0); Nucleated RBC % (auto) 0.4 %; Platelet Count 292 K/uL (130-400); RDW Coefficient of Variation 17.1 % (11.5-14.5); Red Blood Count 3.28 M/uL (4.7-6.1); White Blood Count 7.17 K/uL (4.8-10.8)
[2019-07-31 07:41] LABS: Basophils # (auto) 0.03 K/uL (0-0.2); Basophils % (auto) 0.4 %; Eosinophils # (auto) 0.23 K/uL (0-0.5); Eosinophils % (auto) 3.2 %; Immature Granulocytes # (auto) 0.02 K/uL (0.00-0.02); Immature Granulocytes % (auto) 0.3 %; Lymphocytes % (auto) 19.5 %; Monocytes # (auto) 0.67 K/uL (0.11-0.59); Monocytes % (auto) 9.3 %; Neutrophils # (auto) 4.82 K/uL (1.4-6.5); Neutrophils % (auto) 67.3 %; Ovalocytes 1+; Polychromasia 1+
[2019-07-31 07:48] LABS: Albumin Level 2.6 gm/dl (3.4-5.0); BUN Creatinine Ratio 18.7 (10-20); Calcium 8.7 mg/dl (8.5-10.1); Creatinine Clr Calc Pharmacy 36.6 ml/min; Est GFR (African American) 27.8; Potassium 4.4 mmol/L (3.5-5.1)
[2019-07-31 07:51] LABS: Albumin Globulin Ratio 0.7 (0.9-2); Bilirubin,Total 0.3 mg/dl (0.2-1); Globulin 3.7 gm/dl (2.5-4.0); Total Protein 6.3 gm/dl (6.4-8.2)
[2019-07-31] MEDS: INSULIN ASPART 100 UNITS/ML 3 ML PEN SC SCH ×4 (08:01→20:40)
[2019-07-31] MEDS: GABAPENTIN 100 MG CAP PO SCH ×3 (08:01→20:40)
[2019-07-31] MEDS: DOXYCYCLINE HYCLATE 100 MG CAP PO SCH ×2 (08:02→20:41)
[2019-07-31] MEDS: AMIODARONE 200 MG TAB PO SCH ×3 (08:02→20:38)
[2019-07-31] MEDS: DOCUSATE SODIUM 100 MG CAP PO SCH ×2 (08:02→20:35)
[2019-07-31] MEDS: METOPROLOL SUCC 50MG EXT REL TAB PO SCH (08:02)
[2019-07-31] MEDS: INSULIN GLARGINE SOLOSTAR 100 UNITS/ML 3 ML PEN SC SCH ×2 (08:03→20:39)
[2019-07-31] MEDS: AMIODARONE / D5W 360 MG/200 ML BAG IV SCH (10:14)
[2019-07-31] MEDS ORDERED: ACETAMINOPHEN 325 MG TAB PO PRN (11:56)
[2019-07-31] MEDS ORDERED: LEVALBUTEROL HCL 1.25 MG/3 ML NEB NEB STA (12:54)
--- NOTE | 2019-07-31 12:59 | Hospitalist Progress Note ---
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 coli ESBL UTI and receiving intravenous ertapenem at [facility], presented to ER with c/o SOB, cough, fever. In ER patient found to have heart rate 160, RR: 30, 90% on room air, BP 126/66, T: 37.4C. He was given total 850 mL and SS bolus, esmolol started. In ER patient converted to sinus rhythm and esmolol drip was stopped. -cardiology 07/30/2019 note "Patient converted to sinus rhythm with IV amiodarone. Left bundle branch block without significant bradycardia or pauses noted on telemetry. Recurrent A. fib likely provoked by febrile illness/URI. He is not a candidate for anticoagulation due to severe anemia and h/o gross hematuria. Reduce oral metoprolol to 50 mg daily. Continue IV amiodarone for an additional 24 hours. Add oral amiodarone 200 mg twice daily." -as of 07/31/2019, cardiology advises to stop IV amiodarone, remain on oral amiodarone 200 mg BID and to continue metoprolol as 50 mg daily. hospitalist service will continue to monitor patient on telemetry as inpatient (2) Hypoxia: (3) Cough: Hypoxia with cough is suspected to be from viral upper respiratory infection -admission 1 view CXR with no focal lung infiltrates -Influenza swab by PCR is negative, Tamiflu is discontinued and droplet precautions stopped on 07/30/2019 -continue empiric Doxycycline -prn nebulizer treatments -a 2 view Chest X ray on 07/31/2019 pending (4) Hypomagnesemia: -admission serum magnesium 1.7 on 07/29/2019 -after magnesium repletion, serum magnesium is 2.2 by 07/30/2019 (5) Anemia: -patient with history of anemia secondary to hematuria -admission hemoglobin 7.8 on 07/29/2019; patient denies hematuria recently but hemoglobin is 7.1 in AM of 07/30/2019 and patient is s/p 1 unit of PRBC with subsequent hemoglobin as 8.1 -Hgb generally stable as 7.9 on 07/31/2019 (6) UTI due to extended-spectrum beta lactamase (ESBL) producing Escherichia coli: -Recent ESBL UTI on urine culture 07/15/2019. Was started on ertapenem daily on 07/17/2019 for 2 week course via midline -last day of Ertapenem was planned for 07/30/2019, continued Ertapenem with discontinuation on 07/31/2019 as for admission urine culture with no growth of urinary bacteria (7) CKD (chronic kidney disease): Chronic Kidney Disease stage III to stage IV -monitor renal function (8) Cardiomyopathy: 11/2018 echo: Borderline concentric left ventricular hypertrophy, no wall motion abnormalities, EF: 50-55% -titrate diuretics based on renal function and CXR results on 07/31/2019 (9) Adrenal insufficiency: chronic adrenal insufficiency -In ER given hydrocortisone 100 mg IV -stopped IV hydrocortisone and transition to home dose oral hydrocortisone on 07/30/2019 -Continue home dose Florinef (10) Diabetes type 2, uncontrolled: TYPE 2 DIABETES MELLITUS WITH SUPERVISOR PUMPING STATION 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 HbA1c: 10.2 in 06/2019 Following with stone driller at [facility] [place]-Dr. Fonseca. 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 Most recent bladder resection on 05/14/[address] Moore at [facility]. Currently follows with Dr. Rosario -No further treatment recommended at this time'' (12) Sleep apnea: -CPAP at bedtime (13) RLS (restless legs syndrome): -Continue pramipexole DVT Prophylaxis -SCDs with anemia Full Code Subjective Patient on nasal cannula oxygen. He has rhonchi on exam. some mild cough. Patient has been afebrile. On Telemetry patient currently sinu bradycardia. no chest pain. no palpitations. no abdominal pain. no vomiting Review of Systems Review of Systems: All systems reviewed & are unremarkable except as noted in HPI & below Physical Exam Constitutional: + obese Eyes: PERRL, conjunctivae normal, anicteric sclerae EOM intact bilaterally ENMT: external ear and nose normal, oropharynx normal Neck: normal visual inspection Respiratory: rhonchi Cardiovascular: Rate/Rhythm: + bradycardic Gastrointestinal (Abdomen): normal bowel sounds, soft, nontender, no hepatosplenomegaly Musculoskeletal: Head/Neck/Chest: normocephalic and head atraumatic Neurologic: PERRL, EOMI, accommodation nl, no face palsy, no dysarthria CN's II-XI intact bilaterally Psychiatric: A+Ox3, euthymic affect mild bilateral edema Results & Data Vital Signs (Past 12 Hours) Vital Signs Temp Pulse Pulse Pulse Resp BP Pulse Ox 07/31/19 11:11 36.6 C 62 22 131/70 99 07/31/19 07:46 36.6 C 73 18 131/75 96 07/31/19 07:45 83 07/31/19 04:00 36.8 C 65 65 24 123/76 94 (1) CKD (chronic kidney disease) Chronic kidney disease stage: unspecified stage Qualified Code(s): N18.9 - Chronic kidney disease, unspecified
--- NOTE | 2019-07-31 13:33 | Cardiology Progress Note ---
Date of Service July 31, 2019 Assessment & Plan (1) Atrial fibrillation with RVR: Discontinue intravenous amiodarone. Increase oral amiodarone to 200 mg 3 times daily. Reduce dose to 200 mg twice daily at discharge x1 week then reduce dose to 200 mg daily. Left bundle branch block without significant bradycardia or pauses noted on telemetry. Recurrent A. fib likely provoked by febrile illness/URI. He is not a candidate for anticoagulation due to severe anemia and h/o gross hematuria. Continue metoprolol succinate 50 mg daily. (Reduced from outpatient dose, 50 mg twice daily) Continue to monitor closely with documented history of asymptomatic pauses and tachy-bradycardia syndrome in the past. Potential need for pacemaker is a possible consideration due to need for AV kristel blocking agents for treatment of recurrent atrial fibrillation. Avoid antibiotics/medications with the potential to prolong the QT interval. (2) URI (upper respiratory infection): (3) Severe anemia: Subjective Patient seen and examined at the bedside. Continues to cough with intermittent wheezing. Requiring 4 L nasal cannula oxygen. Tolerating diet medications. Remains in sinus rhythm with a brief episode of paroxysmal atrial fibrillation at approximately 6 AM. No associated symptoms. No orthopnea or paroxysmal nocturnal dyspnea. Denies chest pain or heaviness. Review of Systems Review of Systems: All systems reviewed & are unremarkable except as noted in HPI & below Physical Exam Constitutional: well developed, + ill appearing and + morbidly obese Respiratory: + cough; no labored breathing, no retractions and does not use accessory muscles Auscultation: + rhonchi and + wheezes Cardiovascular: Rate/Rhythm: regular rate and regular rhythm Heart Sounds: normal S1 and normal S2 Vessels: radial pulses present; no JVD Extremities: + pedal edema Gastrointestinal (Abdomen): Inspection/Auscultation: + abdomen distended and normal bowel sounds Percussion/Palpation: + hepatosplenomegaly; abdomen nontender, no guarding and abdomen not rigid Musculoskeletal: no cyanosis or clubbing, extremities motor strength 5/5 Skin: no rashes, warm and dry Neurologic: PERRL, EOMI, accommodation nl, no face palsy, no dysarthria Psychiatric: A+Ox3, euthymic affect Results & Data Vital Signs (Past 12 Hours) Vital Signs Temp Pulse Pulse Pulse Resp BP Pulse Ox 07/31/19 13:04 83 20 96 01/12/20 11:11 36.6 C 62 22 131/70 99 07/31/19 07:46 36.6 C 73 18 131/75 96 07/31/19 07:45 83 07/31/19 04:00 36.8 C 65 65 24 123/76 94 (1) URI (upper respiratory infection) URI type: unspecified URI Qualified Code(s): J06.9 - Acute upper respiratory infection, unspecified
[2019-07-31] MEDS: PRAMIPEXOLE DIHYDROCHLO 0.5 MG TAB PO SCH ×2 (15:20→20:40)
--- NOTE | 2019-07-31 15:20 | XRay Report ---
XR chest 2V PA/lateral CLINICAL HISTORY: Abnormal chest x-ray. Follow-up study. COMPARISON STUDY: 07/29/2019 FINDINGS: The heart is borderline enlarged. There is no failure. There are a few scattered chronic in terstitial changes. There is no focal pulmonary consolidation. There is a trace right pleural effusio n. Degenerative changes are present within the cervical spine. IMPRESSION: 1. Trace right pleural effusion 2. No evidence of focal pelvic consolidation. 2. No evidence of failure. ACT 112: Negative or not required by law. Electronically signed by: Christian Al M.D. 07/31/2019 3:18 PM
[2019-07-31] MEDS ORDERED: bisacodyL 10 MG SUPP PR ONE (15:59)
[2019-07-31 19:19] VITALS: TEMP 97.5
[2019-07-31] MEDS: CALCITRIOL 0.25 MCG CAPSULE PO SCH (20:41)
[2019-07-31] MEDS ORDERED: AMIODARONE 200 MG TAB PO SCH (20:45)
[2019-07-31] MEDS ORDERED: AMIODARONE 200 MG TAB PO ONE (20:54)
[2019-08-01 04:18] VITALS: O2SAT 96
[2019-08-01] MEDS: HYDROCORTISONE 10 MG TAB PO SCH (05:32)
[2019-08-01] MEDS: CHOLECALCIFEROL 1,000 UNITS TAB PO SCH (05:33)
[2019-08-01] MEDS: FLUDROCORTISONE ACETATE 0.1 MG TAB PO SCH (05:33)
[2019-08-01] MEDS: INSULIN ASPART 100 UNITS/ML 3 ML PEN SC SCH (07:50)
[2019-08-01] MEDS: INSULIN GLARGINE SOLOSTAR 100 UNITS/ML 3 ML PEN SC SCH (07:51)
[2019-08-01] MEDS: DOXYCYCLINE HYCLATE 100 MG CAP PO SCH (07:52)
[2019-08-01] MEDS: METOPROLOL SUCC 50MG EXT REL TAB PO SCH (07:52)
[2019-08-01] MEDS: DOCUSATE SODIUM 100 MG CAP PO SCH (07:53)
[2019-08-01] MEDS: GABAPENTIN 100 MG CAP PO SCH (07:53)
[2019-08-01 08:42] VITALS: PULSE 63
[2019-08-01] MEDS ORDERED: AMIODARONE 200 MG TAB PO SCH (09:00)
[2019-08-01] MEDS ORDERED: TORSEMIDE 10 MG TAB PO SCH (09:00)
--- NOTE | 2019-08-01 09:02 | Hospitalist Progress Note ---
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 coli ESBL UTI and receiving intravenous ertapenem at [facility], presented to ER with c/o SOB, cough, fever. In ER patient found to have heart rate 160, RR: 30, 90% on room air, BP 126/66, T: 37.4C. He was given total 850 mL and SS bolus, esmolol started. In ER patient converted to sinus rhythm and esmolol drip was stopped. -cardiology 07/30/2019 note "Patient converted to sinus rhythm with IV amiodarone. Left bundle branch block without significant bradycardia or pauses noted on telemetry. Recurrent A. fib likely provoked by febrile illness/URI. He is not a candidate for anticoagulation due to severe anemia and h/o gross hematuria. Reduce oral metoprolol to 50 mg daily. Continue IV amiodarone for an additional 24 hours. Add oral amiodarone 200 mg twice daily." -as of 07/31/2019, cardiology advises to stop IV amiodarone, remain on oral amiodarone 200 mg BID and to continue metoprolol as 50 mg daily. hospitalist service will continue to monitor patient on telemetry as inpatient -08/01/2019. Overnight, patient had asymptomatic bradycardia into the 50s. patient already got metoprolol 50 mg this AM. Discussed with patient about discharge with metoprolol 25 mg daily and amiodarone and close clinic follow ups (Discharge medications (amiodarone 200 mg three times a day and metoprolol succinate 25 mg daily) sent electronically to [facility] [address] [place] [address] Patient will need to follow need to follow on appointments and have further metoprolol adjustments as needed based on heart rates by primary care or cardiology service. Patient will need repeat CBC and comprehensive metabolic panel by primary care doctor Appointments 08/02/2019 11:00 AM Provider Mariya Ludwig RN [facility] 08/04/2019 5:10 PM Provider Prasad Mcguire DO Department Family Practice [facility] 08/08/2019 10:40 AM Provider Dereje Cuevas MD Department Nephrology, [facility] 08/09/2019 3:00 PM Provider Mateo Cornelius PA-C Department Cardiology, [facility] 08/23/2019 8:00 AM Provider Cardio [facility] Department Cardiac Studies, [facility] 08/25/2019 9:00 AM Provider [facility] 1:45 PM Provider Trinh Moore MD Department Urology, [place]) (2) Hypoxia: (3) Cough: Hypoxia with cough is suspected to be from viral upper respiratory infection -admission 1 view CXR with no focal lung infiltrates -Influenza swab by PCR is negative, Tamiflu is discontinued and droplet precautions stopped on 07/30/2019 -had received prn nebulizer treatments -a 2 view Chest X ray on 07/31/2019 is without infiltrates -empiric Doxycycline stopped on 08/01/2019; patient breathing on room air (4) Hypomagnesemia: -admission serum magnesium 1.7 on 07/29/2019 -after magnesium repletion, serum magnesium is 2.2 by 07/30/2019 (5) Anemia: -patient with history of anemia secondary to hematuria -admission hemoglobin 7.8 on 07/29/2019; patient denies hematuria recently but hemoglobin is 7.1 in AM of 07/30/2019 and patient is s/p 1 unit of PRBC with subsequent hemoglobin as 8.1 -Hgb generally stable as 7.9 on 07/31/2019 (6) UTI due to extended-spectrum beta lactamase (ESBL) producing Escherichia coli: -Recent ESBL UTI on urine culture 07/15/2019. Was started on ertapenem daily on 07/17/2019 for 2 week course via midline -last day of Ertapenem was planned for 07/30/2019, continued Ertapenem with discontinuation on 07/31/2019 as admission urine culture with no growth of urinary bacteria -midline to be removed on 08/01/2019 for discharge (7) CKD (chronic kidney disease): Chronic Kidney Disease stage III to stage IV -renal function labs as outpatient on discharge (8) Cardiomyopathy: 11/2018 echo: Borderline concentric left ventricular hypertrophy, no wall motion abnormalities, EF: 50-55% -torsemide 20 mg daily can be resumed (9) Adrenal insufficiency: chronic adrenal insufficiency -In ER given hydrocortisone 100 mg IV -stopped IV hydrocortisone and transition to home dose oral hydrocortisone on 07/30/2019 -Continue home dose Florinef (10) Diabetes type 2, uncontrolled: TYPE 2 DIABETES MELLITUS WITH TECHNICAL SUPPORT REPRESENTATIVE 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 HbA1c: 10.2 in 06/2019 Following with vacuum form operator at [facility]-Dr. Fonseca. 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 Most recent bladder resection on 05/14/[address] Moore at [facility]. Currently follows with Dr. Rosario -No further treatment recommended at this time'' (12) Sleep apnea: -CPAP at bedtime (13) RLS (restless legs syndrome): -Continue pramipexole Discharge Diagnosis: Atrial fibrillation with RVR, Hypoxia with cough is suspected to be from viral upper respiratory infection, UTI due to extended- spectrum beta lactamase (ESBL) producing Escherichia coli, Adrenal insufficiency, TYPE 2 DIABETES MELLITUS WITH TECHNICAL SUPPORT REPRESENTATIVE 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, anemia, Chronic Kidney Disease stage III to stage IV Subjective Overnight, patient had asymptomatic bradycardia into the 50s. patient already got metoprolol 50 mg this AM. Discussed with patient about discharge with metoprolol 25 mg daily and amiodarone and close clinic follow ups. patient breathing on room air. no rhonchi on exam. no palpitations. no dizziness. no chest pain. no abdominal pain. no vomiting. discharge plans discussed at length Review of Systems Review of Systems: All systems reviewed & are unremarkable except as noted in HPI & below Physical Exam Constitutional: + obese Eyes: PERRL, conjunctivae normal, anicteric sclerae EOM intact bilaterally ENMT: external ear and nose normal, oropharynx normal Neck: trachea midline, no thyromegaly normal visual inspection Respiratory: normal respiratory effort Cardiovascular: Rate/Rhythm: regular rhythm and + bradycardic Gastrointestinal (Abdomen): normal bowel sounds, soft, nontender, no hepatosplenomegaly Musculoskeletal: Head/Neck/Chest: normocephalic and head atraumatic Neurologic: PERRL, EOMI, accommodation nl, no face palsy, no dysarthria CN's II-XI intact bilaterally Psychiatric: A+Ox3, euthymic affect Results & Data Vital Signs (Past 12 Hours) Vital Signs Temp Pulse Pulse Pulse Resp BP Pulse Ox 08/01/19 07:57 36.4 C L 59 L 18 138/70 96 08/01/19 07:52 63 08/01/19 07:25 58 L 08/01/19 04:17 36.4 C L 52 L 20 141/72 H 96 08/01/19 00:00 61 07/31/19 23:42 36.4 C L 58 L 20 147/66 H 94 (1) CKD (chronic kidney disease) Chronic kidney disease stage: unspecified stage Qualified Code(s): N18.9 - Chronic kidney disease, unspecified
--- NOTE | 2019-08-01 09:10 | Discharge Summary ---
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 Reported 3 days ago not feeling well. Today developed body aches, cough that is nonproductive so far, shortness of breath. Denies chest pain, palpitations. Gedenniser at home saw patient today and had reported fever 103F and 87% on room air and oxygen at 2 L was applied with improved sats and EMS was called. Patient reports had morning oral medications. Did not have daily dose of ertapenem today. Denies diaphoresis, N/V/D/C, LIANG, dizziness, syncope, vision changes, neck pain, CP, palpitations, hemoptysis, sore throat, choking, otalgia, rhinorrhea, abdominal pain, paresthesias, extremity weakness, increased extremity edema, rashes, dysuria, hematuria, urinary frequency, flank pain, back pain. Patient with recent hospitalization 07/15/2019-07/16/2019 for anemia, hematuria. Hemoglobin 6.9 and was given 1 unit PRBCs with hemoglobin up to 8.0 on 07/16/2019. Coumadin was stopped during that admission. Patient returned to hospital 07/17/2019-07/18/2019 as urine culture positive for ESBL and was started on ertapenem. Patient has been getting ertapenem daily at home through PICC line and to be completed on 07/30/2019. 07/18/2019 patient had right stent removed. He states since removal has not had any further hematuria. In ER patient found to have heart rate 160, RR: 30, 90% on room air, BP 126/66, T: 37.4C. He was given total 850 mL and SS bolus, esmolol started. Given Tylenol, cefepime, hydrocortisone 100 mg IV, Xopenex/Atrovent neb. In ER patient converted to sinus rhythm and esmolol drip was stopped. Patient's breathing improved after neb treatment and with supplemental oxygen at 3 L via nasal cannula with sats at 95% and respirations down to 24. Admission Exam Per Admitting Provider General: mild distress, obese, ill appearing Head: normocephalic, atraumatic Eyes: PERRL, EOM's intact, conjunctiva non-injected, anicteric ENT: normal inspection external ears, nose, mucous membranes mildly dry Neck: supple, trachea midline Lungs: diminished with diffuse wheezing throughout, no rhonchi/rales; R: 24, On 3L oxygen via NC with sats: 95%, able to speak in sentences CV: initially irregularly irregular at rate 120, then to regular rhythm with rate 88, 2+ pretibial edema Abd: normal BS, protuberant, soft, non-tender Ext: no cyanosis, no calf tenderness Neuro: A&O x 3, no focal deficits noted, irritable but cooperative Skin: warm, dry Principal Diagnosis Atrial fibrillation with RVR, Hypoxia with cough is suspected to be from viral upper respiratory infection, UTI due to extended-spectrum beta lactamase (ESBL) producing Escherichia coli, Adrenal insufficiency, TYPE 2 DIABETES MELLITUS WITH 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, anemia, Chronic Kidney Disease stage III to stage IV Discharge Exam Constitutional + obese, cooperative and comfortable Eyes PERRL, conjunctivae normal, anicteric sclerae EOM intact bilaterally ENMT external ear and nose normal, oropharynx normal Neck normal visual inspection Respiratory normal respiratory effort, lungs clear to auscultation Cardiovascular Rate/Rhythm: regular rhythm and + bradycardic Gastrointestinal (Abdomen) normal bowel sounds, soft, nontender, no hepatosplenomegaly Musculoskeletal Head/Neck/Chest: normocephalic and head atraumatic Neurologic PERRL, EOMI, accommodation nl, no face palsy, no dysarthria CN's II-XI intact bilaterally Psychiatric A+Ox3, euthymic affect Discharge Data Allergies Allergy/AdvReac Type Severity Reaction Status Date / Time perflutren AdvReac Intermediate GI SYMPTOMS Verified 07/29/19 12:44 propylene glycol AdvReac Intermediate GI SYMPTOMS Verified 07/29/19 12:44 simvastatin AdvReac Intermediate JOINT AND Verified 07/29/19 12:44 MUSCLE PAIN Consultations 07/29/19 12:45 ED Decision to Admit Stat 07/29/19 15:40 Consult Cardiology Routine Consult Case Management - Discharge Planning Routine Hospital Course (1) Atrial fibrillation with RVR: Pt is 74 y/o M with PMH 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 coli ESBL UTI and receiving intravenous ertapenem at [facility], presented to ER with c/o SOB, cough, fever. In ER patient found to have heart rate 160, RR: 30, 90% on room air, BP 126/66, T: 37.4C. He was given total 850 mL and SS bolus, esmolol started. In ER patient converted to sinus rhythm and esmolol drip was stopped. -cardiology 07/30/2019 note "Patient converted to sinus rhythm with IV amiodarone. Left bundle branch block without significant bradycardia or pauses noted on telemetry. Recurrent A. fib likely provoked by febrile illness/URI. He is not a candidate for anticoagulation due to severe anemia and h/o gross hematuria. Reduce oral metoprolol to 50 mg daily. Continue IV amiodarone for an additional 24 hours. Add oral amiodarone 200 mg twice daily." -as of 07/31/2019, cardiology advises to stop IV amiodarone, remain on oral amiodarone 200 mg BID and to continue metoprolol as 50 mg daily. hospitalist service will continue to monitor patient on telemetry as inpatient -08/01/2019. Overnight, patient had asymptomatic bradycardia into the 50s. patient already got metoprolol 50 mg this AM. Discussed with patient about discharge with metoprolol 25 mg daily and amiodarone and close clinic follow ups (Discharge medications (amiodarone 200 mg three times a day and metoprolol succinate 25 mg daily) sent electronically to [address] [address] Patient will need to follow need to follow on appointments and have further metoprolol adjustments as needed based on heart rates by primary care or cardiology service. Patient will need repeat CBC and comprehensive metabolic panel by primary care doctor Appointments 08/02/2019 11:00 AM Provider Mariya Ludwig RN Department [facility] 08/04/2019 5:10 PM Provider Prsaad Mcguire DO Department [facility] 08/08/2019 10:40 AM Provider Dereje Cuevas MD Department Nephrology, [facility] 08/09/2019 3:00 PM Provider Mateo Cornelius PA-C Department Cardiology, [facility] 08/23/2019 8:00 AM Provider Nurse Shen [facility] Department Cardiac Studies, [facility] 08/25/2019 9:00 AM Provider [facility] 08/25/2019 1:45 PM Provider Trinh Moore MD Department Urology, [place]) (2) Hypoxia: (3) Cough: Hypoxia with cough is suspected to be from viral upper respiratory infection -admission 1 view CXR with no focal lung infiltrates -Influenza swab by PCR is negative, Tamiflu is discontinued and droplet precautions stopped on 07/30/2019 -had received prn nebulizer treatments -a 2 view Chest X ray on 07/31/2019 is without infiltrates -empiric Doxycycline stopped on 08/01/2019; patient breathing on room air (4) Hypomagnesemia: -admission serum magnesium 1.7 on 07/29/2019 -after magnesium repletion, serum magnesium is 2.2 by 07/30/2019 (5) Anemia: -patient with history of anemia secondary to hematuria -admission hemoglobin 7.8 on 07/29/2019; patient denies hematuria recently but hemoglobin is 7.1 in AM of 07/30/2019 and patient is s/p 1 unit of PRBC with subsequent hemoglobin as 8.1 -Hgb generally stable as 7.9 on 07/31/2019 (6) UTI due to extended-spectrum beta lactamase (ESBL) producing Escherichia coli: -Recent ESBL UTI on urine culture 07/15/2019. Was started on ertapenem daily on 07/17/2019 for 2 week course via midline -last day of Ertapenem was planned for 07/30/2019, continued Ertapenem with discontinuation on 07/31/2019 as admission urine culture with no growth of urinary bacteria -midline to be removed on 08/01/2019 for discharge (7) CKD (chronic kidney disease): Chronic Kidney Disease stage III to stage IV -renal function labs as outpatient on discharge (8) Cardiomyopathy: 11/2018 echo: Borderline concentric left ventricular hypertrophy, no wall motion abnormalities, EF: 50-55% -torsemide 20 mg daily can be resumed (9) Adrenal insufficiency: chronic adrenal insufficiency -In ER given hydrocortisone 100 mg IV -stopped IV hydrocortisone and transition to home dose oral hydrocortisone on 07/30/2019 -Continue home dose Florinef (10) Diabetes type 2, uncontrolled: TYPE 2 DIABETES MELLITUS WITH WEB 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 HbA1c: 10.2 in 06/2019 Following with account executive at [facility]-Dr. Fonseca. 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 Most recent bladder resection on 05/14/[address] Moore at [facility] [place]. Currently follows with Dr. Rosario -No further treatment recommended at this time'' (12) Sleep apnea: -CPAP at bedtime (13) RLS (restless legs syndrome): -Continue pramipexole Discharge Diagnosis: Atrial fibrillation with RVR, Hypoxia with cough is suspected to be from viral upper respiratory infection, UTI due to extended- spectrum beta lactamase (ESBL) producing Escherichia coli, Adrenal insufficiency, TYPE 2 DIABETES MELLITUS WITH WEB 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, anemia, Chronic Kidney Disease stage III to stage IV Total Time Total Time Spent Total Time Spent (In Minutes): 40 minutes Total Time Includes: Examination of the Patient, Discharge Planning, Medication Reconciliation and Communication With Other Providers Discharge Plan Discharge Items Patient Disposition: Home - Self-Care Reason For Visit: AFIB WITH RVR Discharge Diagnosis: Atrial fibrillation with RVR, Hypoxia with cough is suspected to be from viral upper respiratory infection, UTI due to extended-spectrum beta lactamase (ESBL) producing Escherichia coli, Adrenal insufficiency, TYPE 2 DIABETES MELLITUS WITH JAIL 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, anemia, Chronic Kidney Disease stage III to stage IV Activity: Per Instructions section Non-emergency contact: Primary Care Provider and Moving Picture Producer Call non-emergency contact if: you have any medication questions Follow-up/Referrals: Prasad Mcguire DO [Primary Care Provider] - Diet: Carb Consistent or DM2 and Heart Healthy Addtl Attending Provider Instructions: Discharge medications (amiodarone 200 mg three times a day and metoprolol succinate 25 mg daily) sent electronically to [address] [address] Patient will need to follow need to follow on appointments and have further metoprolol adjustments as needed based on heart rates by primary care or cardiology service. Patient will need repeat CBC and comprehensive metabolic panel by primary care doctor Appointments 08/02/2019 11:00 AM Provider Mariya Ludwig RN Department [facility] 08/04/2019 5:10 PM Provider Prasad Mcguire DO Department Family Practice [facility] 08/08/2019 10:40 AM Provider Dereje Cuevas MD Department Nephrology, [facility] 08/09/2019 3:00 PM Provider Mateo Cornelius PA-C Department Cardiology, [facility] 08/23/2019 8:00 AM Provider Nurse Cardio [facility] Department Cardiac Studies, [facility] 08/25/2019 9:00 AM Provider [facility] 08/25/2019 1:45 PM Provider Trinh Moore MD Department Urology, [place] Pending Studies at Discharge: No Stand-Alone Forms: My [facility], Smoking Cessation Medications and DC Order Prescriptions: New amiodarone 200 mg Tablet 200 mg PO TID 30 Days Qty: 90 RF: 0 metoprolol succinate 25 mg Tablet Extended Release 24 Hr 25 mg PO QAM 30 Days Qty: 30 RF: 0 Continued pramipexole [Mirapex] 0.5 mg tablet 0.5 mg PO BID RF: 0 ondansetron HCl 4 mg tablet 4 mg PO Q8H PRN (Reason: Nausea And Vomiting) RF: 0 docusate sodium [Colace] 100 mg Capsule 100 mg PO AMHS RF: 0 cholecalciferol (vitamin D3) [Vitamin D3] 1,000 unit Capsule 1,000 unit PO DAILY@0500 RF: 0 acetaminophen [Tylenol Extra Strength] 500 mg Tablet 500 mg PO Q6H PRN (Reason: Pain) RF: 0 triamcinolone acetonide 0.1 % Cream 1 applic TOPICAL BID PRN (Reason: RASH ON LEGS, ARMS & BACK) RF: 0 methylprednisolone sodium succ 125 mg Recon Soln 125 mg IM DIRECTED PRN (Reason: EMERGENCY CASE) RF: 0 calcitriol 0.25 mcg Capsule 0.25 mcg PO HS RF: 0 torsemide 20 mg tablet 20 mg PO SUMOTUWEFRSA@0500 RF: 0 hydrocortisone 10 mg tablet 10 mg PO DAILY@1200,1500 RF: 0 hydrocortisone 10 mg tablet 20 mg PO DAILY@0500 RF: 0 fludrocortisone 0.1 mg tablet 0.1 mg PO DAILY@0500 RF: 0 lorazepam 1 mg Tablet 1 mg PO HS RF: 0 Lantus Solostar U-100 Insulin 100 unit/mL (3 mL) insulin pen 30 unit SC BID RF: 0 lorazepam 1 mg tablet 1 mg PO DAILY PRN (Reason: Anxiety) RF: 0 gabapentin 100 mg capsule 100 mg PO TID RF: 0 Discontinued metoprolol succinate 50 mg Tablet Extended Release 24 Hr 50 mg PO BID RF: 0 ertapenem 1 gram recon soln 1 gm IV DAILY Qty: 12 RF: 0 Discharge Orders: Discharge Order (Routine); Ordered 08/01/19 Ordered By: Binh Babcock Admission Data Admit Date/Time: 07/29/19 13:47 Attending Provider: Binh Babcock Admit Provider: Varinder Mitchell Primary Care Provider: Prasad Mcguire Other Providers: Varinder Mitchell ; Laurent Mann ; [facility]
[2019-08-01 10:51] VITALS: BP 134/70
[2019-08-02] MEDS ORDERED: METOPROLOL SUCC 25MG EXT REL TAB PO SCH (09:00)
== END 2019-08-01 12:03 | disposition home health service (06) | DRG 309 ==
LOC: ED 11:22 → 2S 13:47 → SUATTDRO 13:47 → 2S 15:22

== ENCOUNTER 2019-08-25 20:13 | Inpatient (IN) ==
[2019-08-25] MEDS ORDERED: ALBUT/IPRATROP 3MG/0.5MG NEB 3 ML VIAL NEB STA (20:48)
[2019-08-25 21:36] LABS: Alanine Aminotransferase 25 U/L (12-78); Albumin Level 2.7 gm/dl (3.4-5.0); Aspartate Aminotransferase 27 U/L (15-37); BUN Creatinine Ratio 12.6 (10-20); Blood Urea Nitrogen 41 mg/dl (7-18); Calcium 8.2 mg/dl (8.5-10.1); Carbon Dioxide 26 mmol/L (21-32); Chloride 105 mmol/L (98-107); Est GFR (African American) 20.9; Est GFR (Non-African American) 18.1; Glucose 120 mg/dl (70-99); Sodium 138 mmol/L (136-145)
[2019-08-25 21:40] LABS: Albumin Globulin Ratio 0.8 (0.9-2); Alkaline Phosphatase 63 U/L (45-117); Bilirubin,Total 0.4 mg/dl (0.2-1); Globulin 3.5 gm/dl (2.5-4.0); Total Protein 6.2 gm/dl (6.4-8.2); Troponin I 0.028 ng/ml (0-0.045)
[2019-08-25 22:06] LABS: Influenza A virus by PCR Neg for Influ A (Neg)
--- NOTE | 2019-08-25 22:07 | XRay Report ---
XR chest 1V portable CLINICAL HISTORY: 74 years-old Male presenting with SOB. TECHNIQUE: Portable upright AP view of the chest was obtained. COMPARISON: 08/18/2019. FINDINGS: exhibit technician projects over the periphery of the left upper lung. Cardiac silhouette borderline enla rged. Pulmonary vasculature not significantly engorged. No focal opacity. No large effusion or pneumo thorax. Degenerative changes of the thoracic spine. Upper abdomen normal. Surgical clips in the right axilla. IMPRESSION: 1. Borderline cardiomegaly. No other convincing evidence of acute cardiopulmonary disease. ACT 112: Negative or not required by law. Electronically signed by: Seven Ponce M.D. 08/25/2019 10:06 PM
[2019-08-25] MEDS ORDERED: SODIUM CHLORIDE 0.9% 1000ML 1,000 ML IV SCH (22:30)
[2019-08-25 22:39] LABS: Basophils # (auto) 0.02 K/uL (0-0.2); Basophils % (auto) 0.3 %; Eosinophils # (auto) 0.13 K/uL (0-0.5); Eosinophils % (auto) 2.1 %; Hematocrit (blood only) 31.9 % (42-52); Hemoglobin 9.1 g/dL (14.0-18.0); Immature Granulocytes # (auto) 0.01 K/uL (0.00-0.02); Immature Granulocytes % (auto) 0.2 %; Lymphocytes # (auto) 1.94 K/uL (1.2-3.4); Lymphocytes % (auto) 30.9 %; Mean Corpuscular Hemoglobin 23.2 pg (25-34); Mean Corpuscular Hgb Conc 28.5 g/dL (32-36); Mean Corpuscular Volume 81.4 fL (80-100); Mean Platelet Volume 9.1 fL (7.4-10.4); Monocytes # (auto) 0.79 K/uL (0.11-0.59); Monocytes % (auto) 12.6 %; Neutrophils # (auto) 3.39 K/uL (1.4-6.5); Neutrophils % (auto) 53.9 %; Platelet Count 244 K/uL (130-400); RDW Coefficient of Variation 18.2 % (11.5-14.5); RDW Standard Deviation 54.6 fL (36.4-46.3); Red Blood Count 3.92 M/uL (4.7-6.1); White Blood Count 6.28 K/uL (4.8-10.8)
--- NOTE | 2019-08-25 23:35 | Emergency Department Note ---
Entered by Claude Deluca acting as a scribe for History of Present Illness General Chief complaint: Respiratory Problems Stated complaint: TROUBLE BREATHING,SHORT OF BREATH Source: patient History of Present Illness Onset (ago): day(s) (yesterday) Location: chest Pain Consistency: + other (worsening) Quality: + other (SOB) Relieved By: + other (O2) Associated symptoms: + other (fever, dry mouth) The patient is a 74 y/o male who presents to the ED w/ CC of worsening shortness of breath beginning yesterday. The patient states this evening his shortness of breath worsened, and he had to use his 's oxygen to make him feel better. Pt does not wear home O2 himself. He reports he also developed a fever of 102 and took Tylenol which helped his fever. The patient notes for the past few days he has also had a dry cough. He states he was here a few weeks ago for similar symptoms and was told he had an infection in his lungs. The patient reports he has been drinking a lot of water and still has had a dry mouth. He notes he is a diabetic and has had a blood sugar around 177. The patient states he was recently discharged on Thursday after having a blood transfusion. He reports he was supposed to go to [facility] today and have a CT scan but then cancelled his appointment after he was told he could not have it because he is currently wearing a heart monitor. The patient denies trouble urinating. Home Medications Home Medications Medication Instructions Recorded Confirmed Type cholecalciferol (vitamin D3) 1,000 unit PO QAM 04/20/18 08/25/19 History [Vitamin D3] docusate sodium [Colace] 100 mg PO AMHS 04/20/18 08/25/19 History pramipexole 0.5 mg tablet 0.5 mg PO BID 06/01/18 08/25/19 History ondansetron HCl 4 mg tablet 4 mg PO Q8H PRN tab 08/10/18 08/25/19 History acetaminophen [Tylenol Extra 500 mg PO Q6H PRN 05/22/19 08/25/19 History Strength] calcitriol 0.25 mcg PO HS 05/22/19 08/25/19 History methylprednisolone sodium succ 125 mg IM DIRECTED PRN 05/22/19 08/25/19 History triamcinolone acetonide 1 applic TOPICAL BID PRN 05/22/19 08/25/19 History Lantus Solostar U-100 Insulin 30 unit SC BID 07/02/19 08/25/19 History fludrocortisone 0.1 mg PO QAM 07/02/19 08/25/19 History hydrocortisone 10 mg PO DAILY@1200,1500 07/02/19 08/25/19 History hydrocortisone 20 mg PO DAILY@0500 07/02/19 08/25/19 History lorazepam 1 mg PO HS 07/02/19 08/25/19 History gabapentin 100 mg PO TID 07/29/19 08/25/19 History lorazepam 1 mg PO DAILY PRN 07/29/19 08/25/19 History amiodarone 200 mg PO QAM 08/17/19 08/25/19 History torsemide 20 mg PO QAM 08/17/19 08/25/19 History amlodipine [Norvasc] 10 mg PO QAM 08/25/19 08/25/19 History Allergies Allergy/AdvReac Type Severity Reaction Status Date / Time perflutren AdvReac Intermediate GI SYMPTOMS Verified 08/17/19 16:42 propylene glycol AdvReac Intermediate GI SYMPTOMS Verified 08/17/19 16:42 simvastatin AdvReac Intermediate JOINT AND Verified 08/17/19 16:42 MUSCLE PAIN Past Med/Surg History Medical History Adrenal insufficiency S/P LEFT ADRENALECTOMY- ON CHRONIC HYDROCORTISONE Anxiety (Chronic) Cardiomyopathy (Chronic) Degenerative disc disease (Chronic) Dyslipidemia (Chronic) H/O transfusion of packed red blood cells S/P 2 UNITS (2016) History of immunotherapy (Chronic) Keytruda x 2 Cycles (had to stop after 2nd cycle) Current Opdivo q 2 weeks (currently on hold) - started 05/2017 - 04/2018 Hypertension Morbid obesity (Chronic) Sleep apnea CPAP HS Stage 3 chronic kidney disease (Chronic) Surgical History History of colonoscopy 2016 History of esophagogastroduodenoscopy (EGD) 2017 History of tooth extraction Hx of 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 Mother Colon cancer, Onset Age: 85 Chemo and Resection - Alive and well now Sister Breast cancer, Onset Age: 55 Had Radiation - Alive and well now Sister No problems noted. Sister No problems noted. Sister No problems noted. Sister No problems noted. Brother No problems noted. Son No problems noted. Son No problems noted. Social History Preferred Language: Greek Communication Ability: Effective Visual Impairment: Limited Hearing Ability: Hard of Hearing Superintendent Institution Required: No Beliefs That Will Affect Care: None marital status: Single Current Living Situation: Spouse current occupational status: retired current occupation: Retired - [employer] Feels Safe at Home: Yes Safety Concerns: Feels Safe At This Time Smoking Status: Never smoker Tobacco Type: smokeless tobacco ; Second Hand Exposure: No ; Hx Alcohol Use: No Hx Substance Use: No caffeine: Yes (2 cups of coffee/day ) during the past year weight has: remained stable Review of Systems See HPI for pertinent positives & negatives. and A total of 10 systems reviewed and were otherwise negative Physical Exam Vital Signs Vital Signs - 24 hr 08/25/19 20:27 08/25/19 20:39 08/25/19 20:41 Temperature 37.2 C Temperature Source Oral Pulse Rate 87 86 82 Pulse Rate [Right Finger] Pulse Rate from SpO2 Sensor 84 82 Respiratory Rate 16 20 20 Respiratory Effort / Characteristics Non-Labored Spontaneous Respiratory Depth Normal Respiratory Pattern Regular Blood Pressure 106/66 148/75 H Blood Pressure Mean 79 83 Blood Pressure Position Sitting Pulse Oximetry 93 93 92 Oxygen Delivery Method Room Air Oxygen Flow Rate Sepsis Recent Fever Within 48 Hours No Sepsis Action Taken by Nursing No Action Required Oxygen Flow Rate - Titration Pulse Oximetry Post Tiitration 08/25/19 21:00 08/25/19 21:01 08/25/19 21:05 Temperature Temperature Source Pulse Rate Pulse Rate [Right Finger] Pulse Rate from SpO2 Sensor 80 Respiratory Rate 17 Respiratory Effort / Characteristics Nasal Congestion Short of Breath SOB on Exertion Respiratory Depth Respiratory Pattern Blood Pressure Blood Pressure Mean Blood Pressure Position Pulse Oximetry 97 90 88 L Oxygen Delivery Method Room Air Room Air Oxygen Flow Rate 90 Sepsis Recent Fever Within 48 Hours Sepsis Action Taken by Nursing Oxygen Flow Rate - Titration 2 Pulse Oximetry Post Tiitration 98 08/25/19 21:09 08/25/19 21:30 08/25/19 22:00 Temperature Temperature Source Pulse Rate 87 82 Pulse Rate [Right Finger] 82 Pulse Rate from SpO2 Sensor 94 H 82 Respiratory Rate 20 18 16 Respiratory Effort / Characteristics Non-Labored Spontaneous Respiratory Depth Respiratory Pattern Blood Pressure Blood Pressure Mean Blood Pressure Position Pulse Oximetry 99 95 96 Oxygen Delivery Method Nasal Cannula Oxygen Flow Rate 2 Sepsis Recent Fever Within 48 Hours Sepsis Action Taken by Nursing Oxygen Flow Rate - Titration Pulse Oximetry Post Tiitration 08/25/19 22:30 08/25/19 22:56 08/25/19 23:00 Temperature Temperature Source Pulse Rate 83 84 80 Pulse Rate [Right Finger] Pulse Rate from SpO2 Sensor 85 84 79 Respiratory Rate 19 15 14 Respiratory Effort / Characteristics Respiratory Depth Respiratory Pattern Blood Pressure 172/86 H 144/87 H Blood Pressure Mean 91 111 Blood Pressure Position Pulse Oximetry 94 94 93 Oxygen Delivery Method Oxygen Flow Rate Sepsis Recent Fever Within 48 Hours Sepsis Action Taken by Nursing Oxygen Flow Rate - Titration Pulse Oximetry Post Tiitration 08/25/19 23:01 08/25/19 23:30 08/25/19 23:31 Temperature Temperature Source Pulse Rate 75 85 85 Pulse Rate [Right Finger] Pulse Rate from SpO2 Sensor 75 83 85 Respiratory Rate 20 20 16 Respiratory Effort / Characteristics Respiratory Depth Respiratory Pattern Blood Pressure 164/69 H Blood Pressure Mean 119 Blood Pressure Position Pulse Oximetry 97 97 98 Oxygen Delivery Method Oxygen Flow Rate Sepsis Recent Fever Within 48 Hours Sepsis Action Taken by Nursing Oxygen Flow Rate - Titration Pulse Oximetry Post Tiitration 08/26/19 00:00 08/26/19 00:01 08/26/19 00:02 Temperature Temperature Source Pulse Rate 84 81 77 Pulse Rate [Right Finger] Pulse Rate from SpO2 Sensor 84 81 76 Respiratory Rate 21 20 19 Respiratory Effort / Characteristics Respiratory Depth Respiratory Pattern Blood Pressure 103/72 Blood Pressure Mean 84 Blood Pressure Position Pulse Oximetry 98 99 97 Oxygen Delivery Method Oxygen Flow Rate Sepsis Recent Fever Within 48 Hours Sepsis Action Taken by Nursing Oxygen Flow Rate - Titration Pulse Oximetry Post Tiitration 08/26/19 00:30 08/26/19 00:31 08/26/19 01:00 Temperature Temperature Source Pulse Rate 83 75 102 H Pulse Rate [Right Finger] Pulse Rate from SpO2 Sensor 81 76 82 Respiratory Rate 12 20 16 Respiratory Effort / Characteristics Respiratory Depth Respiratory Pattern Blood Pressure 152/78 H Blood Pressure Mean 98 Blood Pressure Position Pulse Oximetry 97 98 100 Oxygen Delivery Method Oxygen Flow Rate Sepsis Recent Fever Within 48 Hours Sepsis Action Taken by Nursing Oxygen Flow Rate - Titration Pulse Oximetry Post Tiitration 08/26/19 01:01 Temperature Temperature Source Pulse Rate 77 Pulse Rate [Right Finger] Pulse Rate from SpO2 Sensor 76 Respiratory Rate 21 Respiratory Effort / Characteristics Respiratory Depth Respiratory Pattern Blood Pressure 163/92 H Blood Pressure Mean 103 Blood Pressure Position Pulse Oximetry 100 Oxygen Delivery Method Oxygen Flow Rate Sepsis Recent Fever Within 48 Hours Sepsis Action Taken by Nursing Oxygen Flow Rate - Titration Pulse Oximetry Post Tiitration Vital signs reviewed. General: Obese, chronically ill-appearing 74 y/o male, in no significant distress. HEENT: No scleral icterus, MMM, neck supple. n/c O2 Cardiovascular: Regular rate and rhythm, no extra sounds. Pulmonary: Coarse breath sounds with scattered wheezes bilaterally, increased work of breathing. Abdomen: Soft, nontender, nondistended, positive bowel sounds. Musculoskeletal: Atraumatic, 1-2+ pitting edema of the bilateral lower extremities. Neurologic: Patient awake alert and oriented x 3. Skin: Warm, dry, no rash Course Course 2040: Past medical records reviewed. The patient was evaluated in room C03. A complete history and physical examination was performed. 2240: Upon reevaluation, the patient is resting comfortably. I discussed laboratory and radiographic results with him. He verbalized agreement of the treatment plan. The patient will be evaluated for further management and care. 2244: I reviewed the patient's case with Dr. Raygoza, [facility] Hospitalist. He will evaluate the patient for further management. Administered Medications Amiodarone HCl (Cordarone) 200 mg PO QAM [facility] Stop: 09/25/19 08:59 Last Admin: 08/26/19 08:00 Dose: 200 mg Documented by: [id number] Amlodipine Besylate (Norvasc) 10 mg PO QAM [facility] Stop: 09/25/19 08:59 Last Admin: 08/26/19 08:00 Dose: 10 mg Documented by: [id number] Docusate Sodium (Colace) 100 mg PO AMHS [facility] Stop: 09/25/19 08:59 Last Admin: 08/26/19 08:00 Dose: 100 mg Documented by: [id number] Fludrocortisone Acetate (Florinef) 0.1 mg PO QAM [facility] Stop: 09/25/19 08:59 Last Admin: 08/26/19 08:00 Dose: 0.1 mg Documented by: [id number] Hydrocortisone (Cortef) 20 mg PO DAILY@0500 [facility] Stop: 09/25/19 04:59 Last Admin: 08/26/19 04:53 Dose: 20 mg Documented by: [id number] Insulin Aspart (Novolog Flexpen) 0 units SC ACHS [facility] Stop: 09/25/19 07:29 Last Admin: 08/26/19 08:03 Dose: 4 units Documented by: [id number] Cosigned by: [id number] Insulin Glargine (Lantus Solostar Pen) 30 units SC BID [facility] Stop: 09/25/19 08:59 Last Admin: 08/26/19 08:02 Dose: 30 units Documented by: [id number] Cosigned by: [id number] Oseltamivir Phosphate (Tamiflu) 30 mg PO DAILY [facility]; Protocol Stop: 08/31/19 08:59 Last Admin: 08/26/19 09:16 Dose: 30 mg Documented by: [id number] [facility]) [facility]: 09/25/19 08:59 Last Admin: 08/26/19 08:01 Dose: 20 mg Documented by: [id number] Vitamin D (Vitamin D3) 1,000 units PO [facility] Stop: 09/25/19 08:59 Last Admin: 08/26/19 08:00 Dose: 1,000 units Documented by: [id number] Discontinued Medications Albuterol (Duoneb) 3 ml NEB NOW STA Stop: 08/25/19 20:49 Last Admin: 08/25/19 21:09 Dose: 3 ml Documented by: [id number] Sodium Chloride (Nss 1000ml) 1,000 mls @ 125 mls/hr IV .Q8H [facility] Stop: 09/24/19 22:29 Last Infusion: 08/26/19 03:48 Dose: 0 mls/hr Documented by: [id number] Admin: 08/25/19 22:57 Dose: 125 mls/hr Documented by: [id number] Miscellaneous (Patient's Height And/Or Weight Needed) 1 ea N/A Q2H [facility] Stop: 09/25/19 03:29 Last Admin: 08/26/19 05:04 Dose: Not Given Documented by: [id number] Medical Decision Making Differential Diagnosis Differential diagnosis: Etiologies such as viral syndrome, otitis, pharyngitis, pneumonia, influenza, meningitis, urinary tract infection, sepsis, bacteremia, as well as others were entertained. Medical Records Attestation: I reviewed the patient's medical records. Home Medications Current Medication List: was personally reviewed by me Laboratory Data Attestation: I reviewed the patient's lab results. Result diagrams: 08/25/19 21:49 08/25/19 20:53 Lab Results 08/25/19 08/25/19 08/25/19 Range/Units 20:50 20:53 20:53 WBC Cancelled RBC Cancelled Hgb Cancelled Hct Cancelled MCV Cancelled MCH Cancelled MCHC Cancelled RDW Std Deviation Cancelled RDW Coeff of Scottie Cancelled Plt Count Cancelled MPV Cancelled Immature Gran % (Auto) Cancelled Neut % (Auto) Cancelled Lymph % (Auto) Cancelled [place] % (Auto) Cancelled Eos % (Auto) Cancelled Baso % (Auto) Cancelled Immature Gran # (Auto) Cancelled Neut # (Auto) Cancelled Lymph # (Auto) Cancelled [place] # (Auto) Cancelled Eos # (Auto) Cancelled Baso # (Auto) Cancelled Absolute Nucleated RBC Cancelled Nucleated RBC % (auto) Cancelled Neutrophils % (Manual) Cancelled Band Neutrophils % Cancelled Lymphocytes % (Manual) Cancelled Prolymphocyte % Cancelled Reactive Lymphs % (Man) Cancelled Monocytes % (Manual) Cancelled Eosinophils % (Manual) Cancelled Basophils % (Manual) Cancelled Metamyelocytes % (Man) Cancelled Myelocytes % (Man) Cancelled Promyelocytes % (Man) Cancelled Blast Cells % (Manual) Cancelled Plasma Cell % (Manual) Cancelled Other Cells % Cancelled Nucleated RBC % Cancelled Neutrophils # (Manual) Cancelled Band Neutrophils # Cancelled Total Absolute Neuts Cancelled Lymphocytes # (Manual) Cancelled Prolymphocyte # Cancelled Reactive Lymphs # Cancelled Total Abs Lymphocytes Cancelled Monocytes # (Manual) Cancelled Eosinophils # (Manual) Cancelled Basophils # (Manual) Cancelled Metamyelocytes # (Man) Cancelled Myelocytes # (Manual) Cancelled Promyelocytes # (Man) Cancelled Blast Cells # (Man) Cancelled Plasma Cell # (Manual) Cancelled Other Cells # Cancelled Nucleated RBCs # (Man) Cancelled Hypersegmented Neuts Cancelled Hyposegmented Neuts Cancelled Hypogranular Neuts Cancelled Large Granular Lymphs Cancelled # Lrg Granular Lymphs Cancelled Hairy Cells Cancelled Smudge Cells Cancelled Toxic Granulation Cancelled Toxic Vacuolation Cancelled Dohle Bodies Cancelled Chasity Rods Cancelled Platelet Estimate Cancelled Hypogranular Platelets Cancelled Clumped Platelets Cancelled Giant Platelets Cancelled Platelet Satelliting Cancelled RBC Morphology Cancelled Polychromasia Cancelled Hypochromasia Cancelled Poikilocytosis Cancelled Basophilic Stippling Cancelled Anisocytosis Cancelled Microcytosis Cancelled Macrocytosis Cancelled Spherocytes Cancelled Pappenheimer Bodies Cancelled Sickle Cells Cancelled Target Cells Cancelled Tear Drop Cells Cancelled Ovalocytes Cancelled Stomatocytes Cancelled [place] Bodies Cancelled Echinocytes Cancelled Acanthocytes (Spur) Cancelled Rouleaux Cancelled RBC Agglutinates Cancelled Schistocytes Cancelled RBC Morph Comment Cancelled Sezary Cell Cancelled Sodium 138 (136-145) mmol/L Potassium 4.0 (3.5-5.1) mmol/L Chloride 105 (98-107) mmol/L Carbon Dioxide 26 (21-32) mmol/L Anion Gap 7.0 (3-11) BUN 41 H (7-18) mg/dl Creatinine 3.24 H (0.6-1.4) mg/dl Est Cr Clr Drug Dosing Not Reportable Est GFR ( Amer) 20.9 Est GFR (Non-Af Amer) 18.1 BUN/Creatinine Ratio 12.6 (10-20) Glucose 120 H (70-99) mg/dl Lactate (0.4-2.0) mmol/L Calcium 8.2 L (8.5-10.1) mg/dl Total Bilirubin 0.4 (0.2-1) mg/dl AST 27 (15-37) U/L ALT 25 (12-78) U/L Alkaline Phosphatase 63 (45-117) U/L Troponin I 0.028 (0-0.045) ng/ml Total Protein 6.2 L (6.4-8.2) gm/dl Albumin 2.7 L (3.4-5.0) gm/dl Globulin 3.5 (2.5-4.0) gm/dl Albumin/Globulin Ratio 0.8 L (0.9-2) Influenza Type A (PCR) Neg for Influ A (Neg) Influenza Type B (PCR) Pos for Influ B A* (Neg) 08/25/19 08/25/19 Range/Units 21:05 21:49 WBC 6.28 RBC 3.92 L Hgb 9.1 L Hct 31.9 L MCV 81.4 MCH 23.2 L MCHC 28.5 L RDW Std Deviation 54.6 H RDW Coeff of Scottie 18.2 H Plt Count 244 MPV 9.1 Immature Gran % (Auto) 0.2 Neut % (Auto) 53.9 Lymph % (Auto) 30.9 [place] % (Auto) 12.6 Eos % (Auto) 2.1 Baso % (Auto) 0.3 Immature Gran # (Auto) 0.01 Neut # (Auto) 3.39 Lymph # (Auto) 1.94 [place] # (Auto) 0.79 H Eos # (Auto) 0.13 Baso # (Auto) 0.02 Absolute Nucleated RBC Nucleated RBC % (auto) Neutrophils % (Manual) Band Neutrophils % Lymphocytes % (Manual) Prolymphocyte % Reactive Lymphs % (Man) Monocytes % (Manual) Eosinophils % (Manual) Basophils % (Manual) Metamyelocytes % (Man) Myelocytes % (Man) Promyelocytes % (Man) Blast Cells % (Manual) Plasma Cell % (Manual) Other Cells % Nucleated RBC % Neutrophils # (Manual) Band Neutrophils # Total Absolute Neuts Lymphocytes # (Manual) Prolymphocyte # Reactive Lymphs # Total Abs Lymphocytes Monocytes # (Manual) Eosinophils # (Manual) Basophils # (Manual) Metamyelocytes # (Man) Myelocytes # (Manual) Promyelocytes # (Man) Blast Cells # (Man) Plasma Cell # (Manual) Other Cells # Nucleated RBCs # (Man) Hypersegmented Neuts Hyposegmented Neuts Hypogranular Neuts Large Granular Lymphs # Lrg Granular Lymphs Hairy Cells Smudge Cells Toxic Granulation Toxic Vacuolation Dohle Bodies Chasity Rods Platelet Estimate Hypogranular Platelets Clumped Platelets Giant Platelets Platelet Satelliting RBC Morphology Polychromasia Hypochromasia Poikilocytosis Basophilic Stippling Anisocytosis Microcytosis Macrocytosis Spherocytes Pappenheimer Bodies Sickle Cells Target Cells Tear Drop Cells Ovalocytes Stomatocytes [place] Bodies Echinocytes Acanthocytes (Spur) Rouleaux RBC Agglutinates Schistocytes RBC Morph Comment Sezary Cell Sodium (136-145) mmol/L Potassium (3.5-5.1) mmol/L Chloride (98-107) mmol/L Carbon Dioxide (21-32) mmol/L Anion Gap (3-11) BUN (7-18) mg/dl Creatinine (0.6-1.4) mg/dl Est Cr Clr Drug Dosing Est GFR ( Amer) Est GFR (Non-Af Amer) BUN/Creatinine Ratio (10-20) Glucose (70-99) mg/dl Lactate 0.9 (0.4-2.0) mmol/L Calcium (8.5-10.1) mg/dl Total Bilirubin (0.2-1) mg/dl AST (15-37) U/L ALT (12-78) U/L Alkaline Phosphatase (45-117) U/L Troponin I (0-0.045) ng/ml Total Protein (6.4-8.2) gm/dl Albumin (3.4-5.0) gm/dl Globulin (2.5-4.0) gm/dl Albumin/Globulin Ratio (0.9-2) Influenza Type A (PCR) (Neg) Influenza Type B (PCR) (Neg) Imaging Data Radiologist's Impression: Radiology results as stated below per my review and the radiologist's interpretation: XR chest 1V portable CLINICAL HISTORY: 74 years-old Male presenting with SOB. TECHNIQUE: Portable upright AP view of the chest was obtained. COMPARISON: 08/18/2019. FINDINGS: industry operations investigator projects over the periphery of the left upper lung. Cardiac silhouette borderline enlarged. Pulmonary vasculature not significantly engorged. No focal opacity. No large effusion or pneumothorax. Degenerative changes of the thoracic spine. Upper abdomen normal. Surgical clips in the right axilla. IMPRESSION: 1. Borderline cardiomegaly. No other convincing evidence of acute cardiopulmonary disease. ACT 112: Negative or not required by law. Electronically signed by: Seven Ponce M.D. 08/25/2019 10:06 PM ECG Data Attestation: I personally reviewed and interpreted this ECG as follows: Indication: + SOB/dyspnea Rate (beats per minute): 86 Rhythm: + sinus rhythm ECG Intervals/blocks: + Left bundle branch block ECG ST segments: no ST depression and no ST elevation ECG Findings: + Other (Prolonged QTc of 481); no PACs and no PVCs Comparison ECG Date: from (08/19/19) Change: no significant change Additional Comments: An order for cardiac monitoring was placed and pt is found to be in a SR at 85 bpm Blood Pressure Blood Pressure Findings: Elevated blood pressure Blood Pressure Disposition: further management by hospitalist MDM Narrative This pt was evaluated and appeared to be in no distress. Pt was on n/c O2. He had diffuse scattered wheezes and was given a duoneb tx. CXR reveals no acute process. EKG is a SR without acute changes. Lab work is significant for acute on chronic RF and influenza B positive. Gentle IV hydration was initiated. He was informed of the findings and will be evaluated by the hospitalist for further management. Impression & Plan Hypoxia, Influenza B, Renal failure Discharge Plan Visit Data *Final* Discharge Date/Time: 08/26/19 02:40 Chief Complaint: Respiratory Problems Stated Complaint: TROUBLE BREATHING,SHORT OF BREATH ED Provider: Andressa Foster Discharge Problem: Hypoxia, Influenza B, Renal failure Patient Disposition: Admitted As Inpatient Discharge Instructions Interventions: ED Discharge Assessment Last Done: 08/26/19 02:40 Discharge Problem: Renal failure Qualifiers: Renal failure chronicity: acute on chronic Acute renal failure type: unspecified Chronic kidney disease stage: stage 4 (severe) Qualified Code(s): N17.9 - Acute kidney failure, unspecified The scribe's documentation has been prepared under my direction and personally reviewed by me in its entirety. I confirm that the note above accurately reflects all work, treatment, procedures, and medical decision making performed by me.
[2019-08-26] MEDS ORDERED: TRIAMCINOLONE ACET 0.1% CR 15 GM TUBE TOP PRN (03:12)
[2019-08-26] MEDS ORDERED: ONDANSETRON INJ 2 MG/ML 2 ML VIAL IV PRN (03:12)
[2019-08-26] MEDS ORDERED: NITROGLYCERIN SL 0.4 MG/TAB TAB SL PRN (03:12)
[2019-08-26] MEDS ORDERED: XOPENEX/ATROVENT 1.25mg/0.5MG NEB COMBO NEB PRN (03:12)
[2019-08-26] MEDS ORDERED: ACETAMINOPHEN 325 MG TAB PO PRN (03:12)
[2019-08-26] MEDS ORDERED: LORazepam 1 MG TAB PO PRN (03:20)
[2019-08-26] MEDS ORDERED: GLUCOSE 10 TABS/TUBE PO PRN (03:30)
[2019-08-26] MEDS ORDERED: CARBOHYDRATES FOR HYPOGLYCEMIA PO PRN (03:30)
[2019-08-26] MEDS ORDERED: GLUCAGON FOR INJ 1 MG VIAL SQ PRN (03:30)
[2019-08-26] MEDS ORDERED: GLUCOSE 40% GEL 15 GM TUBE PO PRN (03:30)
[2019-08-26] MEDS ORDERED: PATIENT'S HEIGHT AND/OR WEIGHT NEEDED SCH (03:30)
[2019-08-26] MEDS ORDERED: DEXTROSE 50% 50 ML SYRINGE IV PRN (03:30)
--- NOTE | 2019-08-26 04:42 | History and Physical Report ---
DATE OF ADMISSION: 08/26/2019 CHIEF COMPLAINT: Shortness of breath and cough. 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 HAs sob on exertion.. Has some runny nose. No sore throat, has dry mouth. No headache, no dizziness, no blurred vision, no earaches. No dysphagia, no odynophagia. Appetite is not that great. No chest pain. No nausea, no vomiting, no abdominal pain. No diarrhea or constipation. No burning micturition, no hematuria. Has swelling in the lower extremity, which he states is same as before. He is supposed to get a CAT scan of the abdomen and pelvis for his melanoma, but it was held because he was placed in Zio Patch to check for tachybrady syndrome. ALLERGIES: TO PERFLUTREN,PROPYLENE GLYCOL, SIMVASTATIN, TRADJENTA. PAST MEDICAL HISTORY: As mentioned above. PAST SURGICAL HISTORY: Right shoulder melanoma status post excision biopsy, colonoscopy, cystoscopy with stent placement, cystourethroscopy with fulguration of large bladder tumor, EGDs, excisional biopsy of skin and subcutaneous tissues of right shoulder, urography, robotic laparoscopic adrenalectomy on left and right sides. MEDICATIONS: The patient is on amlodipine 10 mg p.o. daily; amiodarone 200 mg p.o. daily; Demadex 20 mg p.o. daily; gabapentin 100 mg p.o. t.i.d.; Ativan 1 mg at bedtime and 1 mg daily p.r.n.; vitamin B12 1000 mcg IM once a month; Florinef 100 mcg daily; hydrocortisone 20 mg in a.m., 10 mg at lunchtime and 10 mg in the evening; Lantus 30 units b.i.d.; Mirapex 0.5 mg p.o. t.i.d.; calcitriol 0.25 mcg p.o. daily; vitamin D 1000units p.o. daily; Zofran 4 mg p.o. q. 8 hours p.r.n.; Tylenol Extra Strength 500 mg every 6 hours p.r.n.; Colace 100 mg p.o. b.i.d. FAMILY HISTORY: Significant for sister has breast cancer. Maternal grandfather had stroke. Mother has hypertension. SOCIAL HISTORY: . Smokes tobacco. Alcohol rarely. No drug use. REVIEW OF SYMPTOMS: As per HPI. Rest of review of symptoms negative. PHYSICAL EXAMINATION: GENERAL: The patient is obese, not in acute distress. VITAL SIGNS: Temperature 37.2, pulse 77, respiratory rate 21, blood pressure 163/92, oxygen 100% on 2 liters. HEENT: No pallor, no icterus. Pupils equal, round, reactive to light. NECK: No JVD, no neck masses, no carotid bruits. CARDIOVASCULAR: S1, S2 heard. Regular rate and rhythm. No murmur, no gallop. RESPIRATORY SYSTEM: Normal AP diameter. No accessory muscle use. Mild bilateral rhonchi. No wheezing. ABDOMEN: Soft, bowel sounds present, nontender. No distention. CENTRAL NERVOUS SYSTEM: Cranial nerves II-XII grossly intact. Nonfocal. EXTREMITIES: Bilateral lower extremity, +2 edema present, no erythema seen. LABORATORY DATA: WBC 6.2, hemoglobin 9.1, hematocrit 31.9, platelets 244. Sodium 138, potassium 4, chloride 105, bicarb 26, BUN 41, creatinine 3.24, serum glucose 120, lactate 0.9, calcium 8.2. Total bilirubin 0.4, AST 27, ALT 25, alkaline phosphatase 63. Troponin I 0.028. Influenza B PCR positive. Chest x-ray: Borderline cardiomegaly, no other evidence of acute cardiopulmonary disease. EKG: Normal sinus rhythm, rate of 86, right bundle branch block seen. ASSESSMENT AND PLAN: This is a 74-year-old male who presents with shortness of breath and cough and found to be flu positive. 1. Shortness of breath, flu positive. Chest x-ray, no obvious infiltrates. Has cough. We will continue oxygenation, place him on Tamiflu with renal dosing and monitor the response. 2. History of cardiomyopathy, possible diastolic CHF, on last echo EF was normal. We will continue his home torsemide. He has lower extremity edema, which the patient says is same as before. We will watch for any volume overload. 3. Adrenal insufficiency. Continue his hydrocortisone and fludrocortisone. 4. History of paroxysmal atrial fibrillation, rate under control. He is on Zio patch for tachybrady syndrome, following with Cardiology. Continue his amiodarone. Not a candidate for anticoagulation. 5. History of diabetes. Continue his home Lantus, place him on insulin sliding scale. Follow his blood sugars, follow HbA1c levels. 6. Anxiety disorder. Continue his Ativan. 7. Restless legs syndrome. Continue his Mirapex. 8. Acute on chronic kidney disease stage IV. Baseline creatinine around 2-2.5, current creatinine 3.2. We will follow the labs in a.m. If worsening we will hold his Demadex. 9. Obstructive sleep apnea. CPAP at bedtime. 10. Obesity. Needs counseling. 11. Hypertension. Continue his amlodipine, diuretics with holding parameters. 12. DVT prophylaxis, SCDs for now. DISPOSITION: Closely monitor in the med/surg tele. Level 1 full code. PT and OT prior to discharge. Social Service to help with discharge planning. RAYSHAWN
[2019-08-26] MEDS: HYDROCORTISONE 10 MG TAB PO SCH ×3 (04:53→15:55)
[2019-08-26] MEDS: FLUDROCORTISONE ACETATE 0.1 MG TAB PO SCH (08:00)
[2019-08-26] MEDS: CHOLECALCIFEROL 1,000 UNITS 25 MCG TAB PO SCH (08:00)
[2019-08-26] MEDS: AMLODIPINE BESYLATE 5 MG TAB PO SCH (08:00)
[2019-08-26] MEDS: AMIODARONE 200 MG TAB PO SCH (08:00)
[2019-08-26] MEDS: DOCUSATE SODIUM 100 MG CAP PO SCH ×2 (08:00→20:45)
[2019-08-26] MEDS: TORSEMIDE 10 MG TAB PO SCH (08:01)
[2019-08-26] MEDS: INSULIN GLARGINE SOLOSTAR 100 UNITS/ML 3 ML PEN SC SCH ×2 (08:02→20:45)
[2019-08-26] MEDS: INSULIN ASPART 100 UNITS/ML 3 ML PEN SC SCH ×4 (08:03→20:47)
[2019-08-26] MEDS ORDERED: GABAPENTIN 100 MG CAP PO SCH (09:00)
[2019-08-26] MEDS: OSELTAMIVIR PHOSPHATE SUSP 30 MG/5 ML UDP PO SCH (09:16)
--- NOTE | 2019-08-26 14:11 | Electrocardiogram Report ---
Test Reason : Blood Pressure : / mmHG Vent. Rate : 086 BPM Atrial Rate : 086 BPM P-R Int : 170 ms QRS Dur : 132 ms QT Int : 402 ms P-R-T Axes : 062 020 095 degrees QTc Int : 481 ms Normal sinus rhythm Left bundle branch block Abnormal ECG When compared with ECG of 19-AUG-2019 06:22, Premature ventricular complexes are no longer Present Confirmed by Alireza Barrios ([id number]) on 08/26/2019 2:11:01 PM Referred By: REFERRED SELF Confirmed By:Alireza Barrios
[2019-08-26] MEDS: GABAPENTIN 100 MG CAP PO SCH ×2 (15:11→20:46)
[2019-08-26] MEDS: PRAMIPEXOLE DIHYDROCHLO 0.5 MG TAB PO SCH ×2 (15:55→20:46)
--- NOTE | 2019-08-26 19:01 | Hospitalist Progress Note ---
Date of Service August 26, 2019 Assessment & Plan (1) Influenza B: ASSESSMENT AND PLAN: This is a 74-year-old male who presents with shortness of breath and cough and found to be flu positive. 1. Shortness of breath, flu positive. Chest x-ray, no obvious infiltrates. Has cough. We will continue oxygenation, place him on Tamiflu with renal dosing and monitor the response. 2. History of cardiomyopathy, possible diastolic CHF, on last echo EF was normal. We will continue his home torsemide. He has lower extremity edema, which the patient says is same as before. We will watch for any volume overload. 3. Adrenal insufficiency. Continue his hydrocortisone and fludrocortisone. 4. History of paroxysmal atrial fibrillation, rate under control. He is on Zio patch for tachybrady syndrome, following with Cardiology. Continue his amiodarone. Not a candidate for anticoagulation. 5. History of diabetes. Continue his home Lantus, place him on insulin sliding scale. Follow his blood sugars, follow HbA1c levels. 6. Anxiety disorder. Continue his Ativan. 7. Restless legs syndrome. Continue his Mirapex. 8. Acute on chronic kidney disease stage IV. Baseline creatinine around 2-2.5, current creatinine 3.2. We will follow the labs in a.m. If worsening we will hold his Demadex. 9. Obstructive sleep apnea. CPAP at bedtime. 10. Obesity. Needs counseling. 11. Hypertension. Continue his amlodipine, diuretics with holding parameters. 12. DVT prophylaxis, SCDs for no Results & Data ([facility]) Vital Signs (Past 12 Hours) Vital Signs Temp Pulse Pulse Resp BP Pulse Ox 08/26/19 15:23 78 08/26/19 15:14 36.5 C 83 20 139/72 96 08/26/19 11:38 36.8 C 84 20 144/77 H 94 08/26/19 07:47 82 08/26/19 07:20 36.7 C 87 20 138/75 93
[2019-08-26] MEDS ORDERED: SODIUM CHLORIDE 0.9% 1000ML 1,000 ML IV SCH (19:30)
[2019-08-26] MEDS: BENZONATATE 100 MG CAPSULE PO SCH ×2 (19:45→20:49)
[2019-08-26] MEDS: CALCITRIOL 0.25 MCG CAPSULE PO SCH (20:49)
[2019-08-26] MEDS: LORazepam 1 MG TAB PO SCH (20:54)
[2019-08-27] MEDS: HYDROCORTISONE 10 MG TAB PO SCH ×3 (05:30→14:35)
[2019-08-27] MEDS: GABAPENTIN 100 MG CAP PO SCH ×3 (05:31→21:30)
[2019-08-27 06:23] LABS: BUN Creatinine Ratio 13.7 (10-20); Calcium 8.2 mg/dl (8.5-10.1); Creatinine Clr Calc Pharmacy 29.9 ml/min; Est GFR (African American) 21.7; Est GFR (Non-African American) 18.7; Potassium 3.8 mmol/L (3.5-5.1)
[2019-08-27 06:44] LABS: Basophils # (auto) 0.01 K/uL (0-0.2); Basophils % (auto) 0.2 %; Eosinophils # (auto) 0.37 K/uL (0-0.5); Eosinophils % (auto) 7.6 %; Hematocrit (blood only) 29.9 % (42-52); Hemoglobin 8.5 g/dL (14.0-18.0); Lymphocytes # (auto) 0.95 K/uL (1.2-3.4); Lymphocytes % (auto) 19.6 %; Mean Corpuscular Hemoglobin 22.7 pg (25-34); Mean Corpuscular Hgb Conc 28.4 g/dL (32-36); Mean Corpuscular Volume 79.9 fL (80-100); Mean Platelet Volume 8.8 fL (7.4-10.4); Monocytes # (auto) 0.63 K/uL (0.11-0.59); Neutrophils # (auto) 2.89 K/uL (1.4-6.5); Neutrophils % (auto) 59.6 %; Platelet Count 268 K/uL (130-400); RDW Coefficient of Variation 17.8 % (11.5-14.5); RDW Standard Deviation 52.9 fL (36.4-46.3); Red Blood Count 3.74 M/uL (4.7-6.1); White Blood Count 4.85 K/uL (4.8-10.8)
[2019-08-27 07:04] LABS: Estimated Average Glucose 140 mg/dl; Hemoglobin A1C 6.5 % (4.5-5.6)
[2019-08-27] MEDS: FLUDROCORTISONE ACETATE 0.1 MG TAB PO SCH (08:13)
[2019-08-27] MEDS: TORSEMIDE 10 MG TAB PO SCH (08:13)
[2019-08-27] MEDS: AMLODIPINE BESYLATE 5 MG TAB PO SCH (08:14)
[2019-08-27] MEDS: CHOLECALCIFEROL 1,000 UNITS 25 MCG TAB PO SCH (08:14)
[2019-08-27] MEDS: BENZONATATE 100 MG CAPSULE PO SCH ×3 (08:14→21:30)
[2019-08-27] MEDS: AMIODARONE 200 MG TAB PO SCH (08:14)
[2019-08-27] MEDS: INSULIN GLARGINE SOLOSTAR 100 UNITS/ML 3 ML PEN SC SCH ×2 (08:15→21:23)
[2019-08-27] MEDS: GUAIFENESIN/DEXTROM SYRUP 200MG/20MG 10ML UDC PO PRN (08:15)
[2019-08-27] MEDS: INSULIN ASPART 100 UNITS/ML 3 ML PEN SC SCH ×4 (08:16→21:23)
[2019-08-27] MEDS: OSELTAMIVIR PHOSPHATE SUSP 30 MG/5 ML UDP PO SCH (08:29)
[2019-08-27] MEDS: DOCUSATE SODIUM 100 MG CAP PO SCH ×2 (08:29→21:30)
[2019-08-27] MEDS: LEVALBUTEROL 1.25MG/0.5ML NEB INH PRN (12:58)
[2019-08-27] MEDS: IPRATROPIUM BROMIDE NEB SOLN 0.02% 2.5 ML VIAL INH PRN (12:58)
[2019-08-27] MEDS: PRAMIPEXOLE DIHYDROCHLO 0.5 MG TAB PO SCH ×2 (14:35→21:30)
--- NOTE | 2019-08-27 14:59 | Hospitalist Progress Note ---
Date of Service August 27, 2019 Assessment & Plan (1) Influenza B: This is a 74-year-old male who presents with shortness of breath and cough and found to be flu positive. Chest x-ray, no obvious infiltrates. Started on Tamiflu, dose adjusted for renal clearance Continue droplet precaution History of cardiomyopathy, possible diastolic CHF, on last echo EF was normal. Patient is given IV hydration for presentation with flu, poor p.o. intake Lasix on hold for HECTOR . Adrenal insufficiency. Continue his hydrocortisone and fludrocortisone. History of paroxysmal atrial fibrillation, r Controlled/on amiodarone On Zio patch for tachybrady syndrome, following with Cardiology. . Not a candidate for anticoagulation. C/ongoing hematuria, anemia requiring multiple transfusions Acute on chronic kidney disease stage IV. Baseline creatinine 22 0.5 Given IV fluids, hold diuretics, repeat BMP in a.m. CODE STATUS: Full code Disposition: To discharge home when medically stable Subjective Feels a bit better today, cough has improved, no fever or chills Still have persistent feeling of shortness of breath Denies of any chest pain no no dizzy spell or lightheadedness Review of Systems Review of Systems: All systems reviewed & are unremarkable except as noted in HPI & below Respiratory: + cough and + wheezing Results & Data ([facility]) Vital Signs (Past 12 Hours) Vital Signs Temp Pulse Pulse Resp BP Pulse Ox 08/27/19 13:00 82 16 97 08/27/19 11:47 36.7 C 82 18 123/69 95 08/27/19 07:34 87 08/27/19 07:21 36.6 C 82 18 127/73 99 08/27/19 03:30 36.6 C 83 20 144/75 H 95
[2019-08-27] MEDS: LORazepam 1 MG TAB PO SCH (21:30)
[2019-08-27] MEDS: CALCITRIOL 0.25 MCG CAPSULE PO SCH (21:30)
[2019-08-28] MEDS: GUAIFENESIN/DEXTROM SYRUP 200MG/20MG 10ML UDC PO PRN (00:15)
[2019-08-28] MEDS: HYDROCORTISONE 10 MG TAB PO SCH ×3 (05:39→14:14)
[2019-08-28] MEDS: GABAPENTIN 100 MG CAP PO SCH ×3 (05:39→20:43)
[2019-08-28 06:39] LABS: Hematocrit (blood only) 29.6 % (42-52); Hemoglobin 8.5 g/dL (14.0-18.0)
[2019-08-28 07:18] LABS: BUN Creatinine Ratio 12.7 (10-20); Calcium 8.3 mg/dl (8.5-10.1); Creatinine Clr Calc Pharmacy 30.4 ml/min; Est GFR (African American) 22.1; Est GFR (Non-African American) 19.1; Potassium 4.3 mmol/L (3.5-5.1)
[2019-08-28] MEDS: AMIODARONE 200 MG TAB PO SCH (09:05)
[2019-08-28] MEDS: DOCUSATE SODIUM 100 MG CAP PO SCH ×2 (09:05→20:43)
[2019-08-28] MEDS: FLUDROCORTISONE ACETATE 0.1 MG TAB PO SCH (09:05)
[2019-08-28] MEDS: CHOLECALCIFEROL 1,000 UNITS 25 MCG TAB PO SCH (09:06)
[2019-08-28] MEDS: OSELTAMIVIR PHOSPHATE SUSP 30 MG/5 ML UDP PO SCH (09:06)
[2019-08-28] MEDS: BENZONATATE 100 MG CAPSULE PO SCH ×3 (09:06→20:43)
[2019-08-28] MEDS: AMLODIPINE BESYLATE 5 MG TAB PO SCH (09:06)
[2019-08-28] MEDS: INSULIN GLARGINE SOLOSTAR 100 UNITS/ML 3 ML PEN SC SCH ×2 (09:07→20:43)
[2019-08-28] MEDS: INSULIN ASPART 100 UNITS/ML 3 ML PEN SC SCH ×4 (09:08→20:44)
--- NOTE | 2019-08-28 09:17 | Hospitalist Progress Note ---
Date of Service August 28, 2019 Assessment & Plan (1) Influenza B: This is a 74-year-old male who presents with shortness of breath and cough and found to be flu positive. Chest x-ray, no obvious infiltrates. Started on Tamiflu, dose adjusted for renal clearance. Will need total 5 days of treatment Continue droplet precaution History of cardiomyopathy, possible diastolic CHF, on last echo EF was normal. Patient is given IV hydration for presentation with flu, poor p.o. intake Volume status stable, Renals function improved, Lasix resumed . Adrenal insufficiency. Continue his hydrocortisone and fludrocortisone. Vital stable History of paroxysmal atrial fibrillation, r Controlled/on amiodarone On Zio patch for tachybrady syndrome, following with Cardiology. . Not a candidate for anticoagulation. C/ongoing hematuria (bladder cancer), anemia requiring multiple transfusions Acute on chronic kidney disease stage IV. Baseline creatinine 22.5 Renal function improved to approximate baseline, Lasix resumed CODE STATUS: Full code Disposition: Plan to discharge home tomorrow if remains medically stable Subjective Had an uneventful night, no complaint of shortness of breath, no hypoxia, off oxygen, oxygen saturation 92% in room air Has dry nonproductive cough, which is improved from prior No fever no chills No complaint of body aches, Appetite fair Review of Systems Review of Systems: All systems reviewed & are unremarkable except as noted in HPI & below Respiratory: + cough; no dyspnea, no pain with cough and no wheezing Physical Exam Constitutional: WD/WN, vitals as above + obese; no acute distress Eyes: PERRL, conjunctivae normal, anicteric sclerae ENMT: external ear and nose normal, oropharynx normal Neck: trachea midline, no thyromegaly Respiratory: normal respiratory effort and + cough; no respiratory distress Auscultation: no rales and no wheezes Cardiovascular: RRR, no murmur, no edema Gastrointestinal (Abdomen): normal bowel sounds, soft, nontender, no hepatosplenomegaly Musculoskeletal: no cyanosis or clubbing, extremities motor strength 5/5 Skin: no rashes, warm and dry Neurologic: PERRL, EOMI, accommodation nl, no face palsy, no dysarthria Psychiatric: A+Ox3, euthymic affect Results & Data ([facility]) Vital Signs (Past 12 Hours) Vital Signs Temp Pulse Resp BP Pulse Ox 08/27/19 22:37 36.3 C L 80 18 153/78 H 98
[2019-08-28] MEDS: PRAMIPEXOLE DIHYDROCHLO 0.5 MG TAB PO SCH ×2 (14:14→20:43)
[2019-08-28] MEDS: LEVALBUTEROL 1.25MG/0.5ML NEB INH PRN (20:32)
[2019-08-28] MEDS: IPRATROPIUM BROMIDE NEB SOLN 0.02% 2.5 ML VIAL INH PRN (20:32)
[2019-08-28] MEDS: CALCITRIOL 0.25 MCG CAPSULE PO SCH (20:43)
[2019-08-28] MEDS: LORazepam 1 MG TAB PO SCH (20:43)
[2019-08-29] MEDS: LEVALBUTEROL 1.25MG/0.5ML NEB INH PRN (03:23)
[2019-08-29] MEDS: IPRATROPIUM BROMIDE NEB SOLN 0.02% 2.5 ML VIAL INH PRN (03:23)
[2019-08-29] MEDS: HYDROCORTISONE 10 MG TAB PO SCH ×2 (04:34→11:58)
[2019-08-29] MEDS: GABAPENTIN 100 MG CAP PO SCH (04:34)
[2019-08-29 06:15] LABS: Hematocrit (blood only) 29.9 % (42-52); Hemoglobin 8.4 g/dL (14.0-18.0)
[2019-08-29 06:49] LABS: BUN Creatinine Ratio 11.4 (10-20); Calcium 8.6 mg/dl (8.5-10.1); Creatinine Clr Calc Pharmacy 34.2 ml/min; Est GFR (African American) 25.5; Potassium 3.9 mmol/L (3.5-5.1)
[2019-08-29 07:18] VITALS: BP 144/74; TEMP 97.9
[2019-08-29] MEDS: BENZONATATE 100 MG CAPSULE PO SCH (07:55)
[2019-08-29] MEDS: DOCUSATE SODIUM 100 MG CAP PO SCH (07:55)
[2019-08-29] MEDS: AMIODARONE 200 MG TAB PO SCH (07:56)
[2019-08-29] MEDS: FLUDROCORTISONE ACETATE 0.1 MG TAB PO SCH (07:56)
[2019-08-29] MEDS: AMLODIPINE BESYLATE 5 MG TAB PO SCH (07:56)
[2019-08-29] MEDS: INSULIN GLARGINE SOLOSTAR 100 UNITS/ML 3 ML PEN SC SCH (07:57)
[2019-08-29] MEDS: CHOLECALCIFEROL 1,000 UNITS 25 MCG TAB PO SCH (07:57)
[2019-08-29] MEDS: INSULIN ASPART 100 UNITS/ML 3 ML PEN SC SCH ×2 (07:59→11:57)
[2019-08-29] MEDS: OSELTAMIVIR PHOSPHATE SUSP 30 MG/5 ML UDP PO SCH (08:08)
[2019-08-29 12:28] VITALS: PULSE 94; O2SAT 92
[2019-08-29] MEDS ORDERED: OSELTAMIVIR PHOSPHATE SUSP 30 MG/5 ML UDP PO SCH (21:00)
--- NOTE | 2019-08-31 09:56 | Discharge Summary ---
Date of Service August 31, 2019 Admission HPI Per Admitting Provider DICTATED BY: Eric Raygoza MD DATE OF ADMISSION: 08/26/2019 CHIEF COMPLAINT: Shortness of breath and cough. 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 HAs sob on exertion.. Has some runny nose. No sore throat, has dry mouth. No headache, no dizziness, no blurred vision, no earaches. No dysphagia, no odynophagia. Appetite is not that great. No chest pain. No nausea, no vomiting, no abdominal pain. No diarrhea or constipation. No burning micturition, no hematuria. Has swelling in the lower extremity, which he states is same as before. He is supposed to get a CAT scan of the abdomen and pelvis for his melanoma, but it was held because he was placed in Zio Patch to check for tachybrady syndrome Principal Diagnosis INFLUENZA B /SOB /COUGH Discharge Exam Constitutional WD/WN, vitals as above + obese; no acute distress Eyes PERRL, conjunctivae normal, anicteric sclerae ENMT external ear and nose normal, oropharynx normal Neck trachea midline, no thyromegaly Respiratory normal respiratory effort and + cough; no respiratory distress Auscultation: no rales and no wheezes Cardiovascular RRR, no murmur, no edema Gastrointestinal (Abdomen) normal bowel sounds, soft, nontender, no hepatosplenomegaly Musculoskeletal no cyanosis or clubbing, extremities motor strength 5/5 Skin no rashes, warm and dry Neurologic PERRL, EOMI, accommodation nl, no face palsy, no dysarthria Psychiatric A+Ox3, euthymic affect Discharge Data Allergies Allergy/AdvReac Type Severity Reaction Status Date / Time perflutren AdvReac Intermediate GI SYMPTOMS Verified 08/17/19 16:42 propylene glycol AdvReac Intermediate GI SYMPTOMS Verified 08/17/19 16:42 simvastatin AdvReac Intermediate JOINT AND Verified 08/17/19 16:42 MUSCLE PAIN Consultations 08/25/19 22:37 ED Decision to Admit Stat 08/26/19 03:12 Consult Case Management - Discharge Planning Routine Hospital Course (1) Influenza B: This is a 74-year-old male who presents with shortness of breath and cough and found to be flu positive. Chest x-ray, no obvious infiltrates. Started on Tamiflu, dose adjusted for renal clearance. Will need total 5 days of treatment pts symptom improved markedly no hypoxia , in room air 2 step exercise shows -no desaturation with activity , no need for home 02 has Dry non productive cough which may continue for next 7-10 days counselling provided for Cough Drops , PRN inhalers , use of humidifier his cough should get better in next few days any evidence of worsening of symptom -fever or SOB need to see his family physician or go the Urgent care or come to ER if it is after hours History of cardiomyopathy, possible diastolic CHF, on last echo EF was normal hx of HFpEF Patient is given IV hydration for presentation with flu, poor p.o. intake Volume status stable, Renals function improved, Lasix resumed . Adrenal insufficiency. Continue his hydrocortisone and fludrocortisone. Vital stable History of paroxysmal atrial fibrillation, r Controlled/on amiodarone On Zio patch for tachybrady syndrome, following with Cardiology. . Not a candidate for anticoagulation. due to /ongoing hematuria (bladder cancer), anemia requiring multiple transfusions Acute on chronic kidney disease stage IV. Baseline creatinine 22.5 Renal function improved to approximate baseline, Lasix resumed CODE STATUS: Full code Disposition: stable to be discharged home today Total Time Total Time Spent Total Time Spent (In Minutes): approx 35 min Total Time Includes: Discharge Planning and Medication Reconciliation Discharge Plan Discharge Items Patient Disposition: Home - Home Health Services Reason For Visit: SOB Discharge Diagnosis: Influenza B/cough/shortness of breath Activity: As commented below Activity Comment: As tolerated Non-emergency contact: Primary Care Provider Call non-emergency contact if: you have any medication questions Follow-up/Referrals: Prasad Mcguire DO [Primary Care Provider] - 09/05/19 10:55 am (This appointment is at [facility]. If you need to change this appointment please call [phone].) Diet: Carb Consistent or DM2 and Heart Healthy Addtl Attending Provider Instructions: Complete dose for antiviral Tamiflu total 5 days Pending Studies at Discharge: No Stand-Alone Forms: My [facility], Smoking Cessation Medications and DC Order Prescriptions: New oseltamivir [Tamiflu] 30 mg capsule 30 mg PO DAILY Qty: 1 RF: 0 Continued pramipexole [Mirapex] 0.5 mg tablet 0.5 mg PO BID RF: 0 ondansetron HCl 4 mg tablet 4 mg PO Q8H PRN (Reason: Nausea) RF: 0 docusate sodium [Colace] 100 mg Capsule 100 mg PO AMHS RF: 0 cholecalciferol (vitamin D3) [Vitamin D3] 1,000 unit Capsule 1,000 unit PO QAM RF: 0 acetaminophen [Tylenol Extra Strength] 500 mg Tablet 500 mg PO Q6H PRN (Reason: Pain) RF: 0 triamcinolone acetonide 0.1 % Cream 1 applic TOPICAL BID PRN (Reason: Rash) RF: 0 methylprednisolone sodium succ 125 mg Recon Soln 125 mg IM DIRECTED PRN (Reason: EMERGENCY CASE) RF: 0 calcitriol 0.25 mcg Capsule 0.25 mcg PO HS RF: 0 torsemide 20 mg tablet 20 mg PO QAM RF: 0 amiodarone 200 mg tablet 200 mg PO QAM RF: 0 hydrocortisone 10 mg tablet 10 mg PO DAILY@1200,1500 RF: 0 hydrocortisone 10 mg tablet 20 mg PO DAILY@0500 RF: 0 fludrocortisone 0.1 mg tablet 0.1 mg PO QAM RF: 0 lorazepam 1 mg Tablet 1 mg PO HS RF: 0 Lantus Solostar U-100 Insulin 100 unit/mL (3 mL) insulin pen 30 unit SC BID RF: 0 lorazepam 1 mg tablet 1 mg PO DAILY PRN (Reason: Anxiety) RF: 0 gabapentin 100 mg capsule 100 mg PO TID RF: 0 amlodipine [Norvasc] 10 mg tablet 10 mg PO QAM RF: 0 Discharge Orders: Discharge Order (Routine); Ordered 08/29/19 Ordered By: Cherry Allen Admission Data Admit Date/Time: 08/26/19 02:10 Attending Provider: Cherry Allen Admit Provider: Eric Raygoza Primary Care Provider: Prasad Mcguire Other Providers: [facility],Home Healthcare ; Eric Raygoza Other Interventions: Discharge Summary Assessment (RN) Last Done: 08/29/19 12:22 DC Date/Time DO NOT enter until pt leaves facility: 08/29/19 13:10
== END 2019-08-29 13:10 | disposition home health service (06) | DRG 194 ==
LOC: ED 20:13 → 2W 08-26 02:10

== ENCOUNTER 2019-09-09 18:03 | Inpatient (IN) ==
--- NOTE | 2019-09-09 18:39 | XRay Report ---
XR chest 1V portable HISTORY: 74 years-old Male Chest Pain acute atypical chest pain COMPARISON: Chest radiograph 08/25/2019 TECHNIQUE: Portable AP view of the chest FINDINGS: Cardiac silhouette is enlarged, unchanged. Mild right hemidiaphragmatic elevation. Unchanged mild laura nting of the costophrenic angles with bibasilar interstitial coarsening. There is no pneumothorax, la rge pleural effusion, overt pulmonary edema or new airspace consolidation. Surgical clips of the righ t axilla. Degenerative changes of the shoulders and spine. IMPRESSION: Cardiomegaly without acute process. ACT 112: Negative or not required by law. The above report was generated using voice recognition software. It may contain grammatical, syntax o r spelling errors. Electronically signed by: Logan Voss M.D. 09/09/2019 6:38 PM
--- NOTE | 2019-09-09 18:58 | Emergency Department Note ---
Entered by Starr Li acting as a scribe for Reed Desai M.D. History of Present Illness General Chief complaint: Referred by Doctor Stated complaint: REF BY DOC Time Seen by Provider: 09/09/19 18:17 Source: patient History of Present Illness Provider complaint: Referred by Doctor Onset (ago): day(s) 3 Location: chest Relieved By: + none Exacerbated By: + none Associated symptoms: + other (Twitching); no syncope The patient is a 74 year old male who presents to the Emergency Room after being referred by his doctor about 3 days ago. The patient states that his doctor did a heart study and he was on a heart monitor for 14 days. He notes that the study ended on the and his doctor called him and told him to come to the ED because the study revealed that his heart was stopping for 7 seconds at a time and he needs to get a pacemaker. The patient states that his symptoms are not relieved nor exacerbated by anything specific. The patient reports experiencing twitching which he believes is due to his heart stopping but denies any syncopal episodes. Home Medications Home Medications Medication Instructions Recorded Confirmed Type cholecalciferol (vitamin D3) 1,000 unit PO QAM 04/20/18 08/25/19 History [Vitamin D3] docusate sodium [Colace] 100 mg PO AMHS 04/20/18 08/25/19 History pramipexole 0.5 mg tablet 0.5 mg PO BID 06/01/18 08/25/19 History ondansetron HCl 4 mg tablet 4 mg PO Q8H PRN tab 08/10/18 08/25/19 History acetaminophen [Tylenol Extra 500 mg PO Q6H PRN 05/22/19 08/25/19 History Strength] calcitriol 0.25 mcg PO HS 05/22/19 08/25/19 History methylprednisolone sodium succ 125 mg IM DIRECTED PRN 05/22/19 08/25/19 History triamcinolone acetonide 1 applic TOPICAL BID PRN 05/22/19 08/25/19 History Lantus Solostar U-100 Insulin 30 unit SC BID 07/02/19 08/25/19 History fludrocortisone 0.1 mg PO QAM 07/02/19 08/25/19 History hydrocortisone 10 mg PO DAILY@1200,1500 07/02/19 08/25/19 History hydrocortisone 20 mg PO DAILY@0500 07/02/19 08/25/19 History lorazepam 1 mg PO HS 07/02/19 08/25/19 History gabapentin 100 mg PO TID 07/29/19 08/25/19 History lorazepam 1 mg PO DAILY PRN 07/29/19 08/25/19 History amiodarone 200 mg PO QAM 08/17/19 08/25/19 History torsemide 20 mg PO QAM 08/17/19 08/25/19 History amlodipine [Norvasc] 10 mg PO QAM 08/25/19 08/25/19 History oseltamivir [Tamiflu] 30 mg PO DAILY #1 cap 08/28/19 Rx Allergies Allergy/AdvReac Type Severity Reaction Status Date / Time perflutren AdvReac Intermediate GI SYMPTOMS Verified 08/17/19 16:42 propylene glycol AdvReac Intermediate GI SYMPTOMS Verified 08/17/19 16:42 simvastatin AdvReac Intermediate JOINT AND Verified 08/17/19 16:42 MUSCLE PAIN Past Med/Surg History Medical History Adrenal insufficiency S/P LEFT ADRENALECTOMY- ON CHRONIC HYDROCORTISONE Anxiety (Chronic) Cardiomyopathy (Chronic) Degenerative disc disease (Chronic) Dyslipidemia (Chronic) H/O transfusion of packed red blood cells S/P 2 UNITS (2016) History of immunotherapy (Chronic) Keytruda x 2 Cycles (had to stop after 2nd cycle) Current Opdivo q 2 weeks (currently on hold) - started 05/2017 - 04/2018 Hypertension Morbid obesity (Chronic) Sleep apnea CPAP HS Stage 3 chronic kidney disease (Chronic) Surgical History History of colonoscopy 2017 History of esophagogastroduodenoscopy (EGD) 2017 History of tooth extraction Hx of 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 Mother Colon cancer, Onset Age: 85 Chemo and Resection - Alive and well now Sister Breast cancer, Onset Age: 55 Had Radiation - Alive and well now Sister No problems noted. Sister No problems noted. Sister No problems noted. Sister No problems noted. Brother No problems noted. Son No problems noted. Son No problems noted. Social History Preferred Language: Chinese Communication Ability: Effective Visual Impairment: Limited Hearing Ability: Hard of Hearing Diamond Wheel Edger Required: No Beliefs That Will Affect Care: None marital status: Single Current Living Situation: Spouse current occupational status: retired current occupation: Retired - [employer] Feels Safe at Home: Yes Smoking Status: Never smoker Tobacco Type: smokeless tobacco ; Second Hand Exposure: No ; Hx Alcohol Use: No Hx Substance Use: No caffeine: Yes (2 cups of coffee/day ) during the past year weight has: remained stable Review of Systems See HPI for pertinent positives & negatives. and A total of 10 systems reviewed and were otherwise negative Physical Exam Vital Signs Vital Signs - 24 hr 09/09/19 18:12 09/09/19 19:32 Temperature 36.3 C L Temperature Source Oral Pulse Rate 85 Pulse Rhythm Regular Pulse Strength Normal Respiratory Rate 22 Respiratory Effort / Characteristics Non-Labored Spontaneous Respiratory Depth Normal Respiratory Pattern Regular Blood Pressure 177/67 H Blood Pressure Mean 103 Blood Pressure Position Sitting Pulse Oximetry 96 95 Oxygen Delivery Method Room Air Room Air Sepsis Recent Fever Within 48 Hours No Sepsis New/Unexplained Change in Mental Status No Sepsis Action Taken by Nursing No Action Required GENERAL: Awake, alert, well-appearing, in no distress HENT: Normocephalic, atraumatic. Oropharynx unremarkable. EYES: Normal conjunctiva. Sclera non-icteric. NECK: Supple. No nuchal rigidity. RESPIRATORY: Clear to auscultation. No wheezes. Normal respiratory effort. CARDIAC: Normal rate. Normal rhythm. Extremities warm and well perfused. GI: Soft, non-distended. No tenderness to palpation. No rebound or guarding. No masses. RECTAL: Deferred. MUSCULOSKELETAL: Atraumatic. Chest examination reveals no tenderness. There is no CVA tenderness to palpation. LOWER EXTREMITIES: Calves are equal size bilaterally and non-tender. Trace pedal edema bilaterally. NEURO: Normal sensorium. No sensory or motor deficits noted. No facial droop. SKIN: Warm and dry. No rash or jaundice noted. Course Course 182: Past medical records reviewed. The patient was evaluated in room C05. A complete history and physical exam was performed. 1952: I spoke with Dr. Raygoza- Hospitalist about the patient's case and he will accept the patient for further evaluation. Medical Decision Making Differential Diagnosis Differential diagnosis includes etiologies such as premature contractions, electrolyte abnormality, cardiac dysrhythmia, thyroid dysfunction, pulmonary embolism, infection, gastrointestinal, as well as others were entertained. Medical Records Attestation: I reviewed the patient's medical records. Home Medications Current Medication List: was personally reviewed by me Laboratory Data Attestation: I reviewed the patient's lab results. Imaging Data Radiologist's Impression: Radiology results as stated below per my review and the radiologist's interpretation: XR chest 1V portable HISTORY: 74 years-old Male Chest Pain acute atypical chest pain COMPARISON: Chest radiograph 08/25/2019 TECHNIQUE: Portable AP view of the chest FINDINGS: Cardiac silhouette is enlarged, unchanged. Mild right hemidiaphragmatic elevation. Unchanged mild blunting of the costophrenic angles with bibasilar interstitial coarsening. There is no pneumothorax, large pleural effusion, overt pulmonary edema or new airspace consolidation. Surgical clips of the right axilla. Degenerative changes of the shoulders and spine. IMPRESSION: Cardiomegaly without acute process. ACT 112: Negative or not required by law. The above report was generated using voice recognition software. It may contain grammatical, syntax or spelling errors. Electronically signed by: Logan Voss M.D. 09/09/2019 6:38 PM ECG Data Attestation: I personally reviewed and interpreted this ECG as follows: Indication: + other (Palpitations) Rate (beats per minute): 80 Rhythm: + sinus rhythm ECG Intervals/blocks: + Left bundle branch block ECG ST segments: no ST depression and no ST elevation ECG Findings: no PVCs Blood Pressure Blood Pressure Findings: Elevated blood pressure Blood Pressure Disposition: further management by hospitalist GRIFFIN Narrative Patient is a 74-year-old gentleman history of CHF, UTI, diabetes, adrenal insufficiency, melanoma presenting today referred from the outpatient setting due to significant cardiac pauses found on Holter monitor. Concern for tachybradycardia syndrome and significant sinus pauses. Patient does relay some episodes of getting a bit twitchy but not actually syncopized. Denying pain. Basic labs were ordered. Doubt this acute ACS. Holter monitor study report was available here showing 34 pauses over 2 weeks with 7-second pause being the longest. Given this requires admission for telemetry monitoring and pacemaker placement when able from a cardiology standpoint. Impression & Plan Tachy-oscar syndrome, Sinus pause Discharge Plan Visit Data Chief Complaint: Referred by Doctor Stated Complaint: REF BY DOC ED Provider: Reed Desai Discharge Problem: Tachy-oscar syndrome, Sinus pause Forms Stand Alone Forms: [facility] Prescriptions Prescriptions: No Action pramipexole [Mirapex] 0.5 mg tablet 0.5 mg PO BID RF: 0 ondansetron HCl 4 mg tablet 4 mg PO Q8H PRN (Reason: Nausea) RF: 0 docusate sodium [Colace] 100 mg Capsule 100 mg PO AMHS RF: 0 cholecalciferol (vitamin D3) [Vitamin D3] 1,000 unit Capsule 1,000 unit PO QAM RF: 0 acetaminophen [Tylenol Extra Strength] 500 mg Tablet 500 mg PO Q6H PRN (Reason: Pain) RF: 0 triamcinolone acetonide 0.1 % Cream 1 applic TOPICAL BID PRN (Reason: Rash) RF: 0 methylprednisolone sodium succ 125 mg Recon Soln 125 mg IM DIRECTED PRN (Reason: EMERGENCY CASE) RF: 0 calcitriol 0.25 mcg Capsule 0.25 mcg PO HS RF: 0 torsemide 20 mg tablet 20 mg PO QAM RF: 0 amiodarone 200 mg tablet 200 mg PO QAM RF: 0 hydrocortisone 10 mg tablet 10 mg PO DAILY@1200,1500 RF: 0 hydrocortisone 10 mg tablet 20 mg PO DAILY@0500 RF: 0 fludrocortisone 0.1 mg tablet 0.1 mg PO QAM RF: 0 lorazepam 1 mg Tablet 1 mg PO HS RF: 0 Lantus Solostar U-100 Insulin 100 unit/mL (3 mL) insulin pen 30 unit SC BID RF: 0 lorazepam 1 mg tablet 1 mg PO DAILY PRN (Reason: Anxiety) RF: 0 gabapentin 100 mg capsule 100 mg PO TID RF: 0 amlodipine [Norvasc] 10 mg tablet 10 mg PO QAM RF: 0 oseltamivir [Tamiflu] 30 mg capsule 30 mg PO DAILY Qty: 1 RF: 0 Referrals Referrals: Prasad Mcguire DO [Primary Care Provider] - The scribe's documentation has been prepared under my direction and personally reviewed by me in its entirety. I confirm that the note above accurately reflects all work, treatment, procedures, and medical decision making performed by me.
[2019-09-09 20:49] LABS: Basophils # (auto) 0.03 K/uL (0-0.2); Basophils % (auto) 0.4 %; Eosinophils # (auto) 0.22 K/uL (0-0.5); Eosinophils % (auto) 3.3 %; Hematocrit (blood only) 30.9 % (42-52); Immature Granulocytes # (auto) 0.01 K/uL (0.00-0.02); Immature Granulocytes % (auto) 0.1 %; Lymphocytes # (auto) 0.92 K/uL (1.2-3.4); Lymphocytes % (auto) 13.6 %; Mean Corpuscular Hemoglobin 23.6 pg (25-34); Mean Corpuscular Hgb Conc 29.1 g/dL (32-36); Mean Corpuscular Volume 80.9 fL (80-100); Mean Platelet Volume 8.6 fL (7.4-10.4); Monocytes # (auto) 0.44 K/uL (0.11-0.59); Monocytes % (auto) 6.5 %; Neutrophils # (auto) 5.13 K/uL (1.4-6.5); Neutrophils % (auto) 76.1 %; Platelet Count 337 K/uL (130-400); RDW Coefficient of Variation 19.4 % (11.5-14.5); RDW Standard Deviation 57.1 fL (36.4-46.3); Red Blood Count 3.82 M/uL (4.7-6.1); White Blood Count 6.75 K/uL (4.8-10.8)
[2019-09-09 21:02] LABS: Partial Thromboplastin Ratio 1.1; Partial Thromboplastin Time 30.2 Seconds (21.0-31.0); Prothrombin Time 10.2 Seconds (9.0-12.0)
[2019-09-09 21:04] LABS: Alanine Aminotransferase 19 U/L (12-78); Albumin Level 2.8 gm/dl (3.4-5.0); Aspartate Aminotransferase 13 U/L (15-37); BUN Creatinine Ratio 11.5 (10-20); Blood Urea Nitrogen 38 mg/dl (7-18); Calcium 8.4 mg/dl (8.5-10.1); Carbon Dioxide 28 mmol/L (21-32); Chloride 108 mmol/L (98-107); Creatinine Clr Calc Pharmacy 28.5 ml/min; Est GFR (African American) 20.4; Est GFR (Non-African American) 17.6; Glucose 108 mg/dl (70-99); Sodium 141 mmol/L (136-145)
[2019-09-09 21:09] LABS: Albumin Globulin Ratio 0.7 (0.9-2); Alkaline Phosphatase 67 U/L (45-117); Bilirubin,Total 0.3 mg/dl (0.2-1); Globulin 3.9 gm/dl (2.5-4.0); Total Protein 6.7 gm/dl (6.4-8.2); Troponin I < 0.015 ng/ml (0-0.045)
[2019-09-09] MEDS ORDERED: ACETAMINOPHEN 325 MG TAB PO PRN (22:54)
[2019-09-09] MEDS ORDERED: SODIUM CHLORIDE 0.9% 1000ML 1,000 ML IV SCH (22:54)
[2019-09-09] MEDS ORDERED: POLYETHYLENE (MIRALAX) 17 GM PACK PO PRN (22:54)
[2019-09-09] MEDS ORDERED: TRIAMCINOLONE ACET 0.1% CR 15 GM TUBE TOP PRN (22:54)
[2019-09-09] MEDS ORDERED: ACETAMINOPHEN 500 MG TAB PO PRN (22:54)
[2019-09-09] MEDS ORDERED: NITROGLYCERIN SL 0.4 MG/TAB TAB SL PRN (22:54)
[2019-09-09] MEDS ORDERED: ONDANSETRON INJ 2 MG/ML 2 ML VIAL IV PRN (22:54)
[2019-09-09] MEDS ORDERED: LORazepam 1 MG TAB PO PRN (23:07)
[2019-09-09] MEDS ORDERED: CARBOHYDRATES FOR HYPOGLYCEMIA PO PRN (23:15)
[2019-09-09] MEDS ORDERED: GLUCOSE 40% GEL 15 GM TUBE PO PRN (23:15)
[2019-09-09] MEDS ORDERED: GLUCAGON FOR INJ 1 MG VIAL SQ PRN (23:15)
[2019-09-09] MEDS ORDERED: DEXTROSE 50% 50 ML SYRINGE IV PRN (23:15)
[2019-09-09] MEDS ORDERED: GLUCOSE 10 TABS/TUBE PO PRN (23:15)
[2019-09-09] MEDS: PRAMIPEXOLE DIHYDROCHLO 0.5 MG TAB PO SCH (23:57)
[2019-09-10] MEDS: DOCUSATE SODIUM 100 MG CAP PO SCH ×3 (00:07→20:39)
[2019-09-10] MEDS: GABAPENTIN 100 MG CAP PO SCH ×4 (00:08→20:41)
[2019-09-10] MEDS: NITROGLYCERIN 2% OINTMENT 30GM TUBE EXT SCH ×5 (01:20→23:27)
--- NOTE | 2019-09-10 02:28 | History and Physical Report ---
DATE OF ADMISSION: 09/09/2019 CHIEF COMPLAINT: Pauses on Zio monitor. 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 Recent bladder resection on 04/2019 at [facility], history of paroxysmal atrial fibrillation, not on anticoagulation secondary to hematuria, type 2 diabetes, adrenal insufficiency on hydrocortisone and fludrocortisone, chronic kidney disease stage 3, baseline creatinine around 2.2-2.5, obesity, anemia, obstructive sleep apnea on CPAP, history of ESBL UTI, anxiety disorder, restless leg syndrome, polycystic kidney disease, who lives with his , who ambulates sometimes with a cane, who was recently admitted to the hospital on 08/26/2019 with a flu at that time and did fine and got discharged on and he was also at that time was on Zio patch to check for tachybrady syndrome, he had 14 days of Zio patch and it was taken out, and he mailed it on 09/06/2019 and today at around 0330pm he was called and told that he has several pauses and the longest pause of 7 seconds and he need to go to the ER that is the reason he came to the hospital. Denies any symptoms. Denies any dizziness, no headache, no blurred vision, no earache, no runny nose, no sore throat, no difficulty swallowing, no chest pain or shortness of breath. Ambulating okay. No cough, no fever, no chills, no nausea, no vomiting, no abdominal pain, no diarrhea, no constipation, no black stools or bloody stools. No hematuria. Has chronic lower extremity edema. Currently resting comfortably and hemodynamically stable. ALLERGIES: PERFLUTREN, PROPYLENE GLYCOL SIMVASTATIN. PAST MEDICAL HISTORY: As mentioned above. PAST SURGICAL HISTORY: Right shoulder melanoma status post excisional biopsy, colonoscopy, cystoscopy with stent placement, cystourethroscopy with fulguration of large bladder tumor, EGDs, excisional biopsy of skin and subcutaneous tissues of right shoulder, urography, robotic laparoscopic adrenalectomy bilaterally. MEDICATIONS: The patient currently on Tylenol 500 mg p.o. q. 6 hours p.r.n., amiodarone 200 mg p.o. a.m., amlodipine 10 mg p.o. a.m., calcitriol 0.5 mcg p.o. daily, vitamin D 1000 units p.o. a.m., Colace 100 mg p.o. b.i.d., fludrocortisone 0.1 mg p.o. a.m., gabapentin 100 mg p.o. t.i.d., hydrocortisone 10 mg p.o. daily, _at 12:00 p.m. and 3:00 p.m., hydrocortisone 20 mg daily at 5:00 a.m., Lantus 30 units b.i.d., Ativan 1 mg at bedtime, Ativan 1 mg p.o. daily p.r.n., methylprednisone 125 mg IM as directed p.r.n., Zofran 4 mg p.o. q. 8 hours p.r.n., pramipexole 0.5 mg p.o. b.i.d., torsemide 20 mg p.o. a.m., triamcinolone application topically b.i.d. p.r.n. FAMILY HISTORY: Significant for sister has breast cancer. Maternal grandfather had stroke. Mother has hypertension. SOCIAL HISTORY: Smokes tobacco. Alcohol rarely. No drug use. REVIEW OF SYMPTOMS: As per HPI. Rest of review of symptoms negative. PHYSICAL EXAMINATION: GENERAL: The patient is obese, not in acute distress. VITAL SIGNS: Temperature 36.3, pulse 76, respiratory rate 18, blood pressure 212/74, oxygen 96% room air. HEENT: No pallor, no icterus. Pupils equal, round, reactive to light. NECK: No JVD, no neck masses, no carotid bruits. CARDIOVASCULAR: S1, S2 heard, regular rate and rhythm, no murmur, no gallop. RESPIRATORY SYSTEM: Normal AP diameter. No accessory muscle use. No wheezing, no crackles. ABDOMEN: Soft, bowel sounds present, nontender. No distention. CENTRAL NERVOUS SYSTEM: Cranial nerves II-XII are grossly intact. Nonfocal. EXTREMITIES: Gross pedal edema present. Mild erythema. LABORATORY DATA: WBC 6.7, hemoglobin 9, hematocrit 30.9, platelets 337. PT 10.2, INR 1, APTT 30.2. Sodium 141, potassium 4, chloride 108, bicarbonate 28, BUN 38, creatinine 3.31, serum glucose 108, calcium 8.4, total bilirubin 0.3, AST 13, ALT 19, alkaline phosphatase 67. Troponin I less than 0.015. Chest x-ray, cardiomegaly without acute process. EKG: Normal sinus rhythm with rate of 80, left bundle branch block, no significant change was found. ASSESSMENT AND PLAN: This 74-year-old male who was placed on Zio patch for 2 weeks for tachybrady syndrome, was told that he has long pauses, longest being 7 seconds and was advised to come to the ER. 1. Pauses on the Zio patch, longest 7 seconds, currently hemodynamically stable, asymptomatic. We will monitor in tele floor. N.p.o. and consult cardiology for placement of pacemaker. Closely monitor on tele floor. Avoid AV kristel blocking drugs. 2. History of atrial fibrillation: We will hold amiodarone, not on anticoagulation because of his hematuria from melanoma, monitor his heart rates. 3. Hypertension: Currently, blood pressure running in 200s. Continue his amlodipine. We will place him on nitro patch and monitor his blood pressure. 4. 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 Follows with urology for his hematuria. Follows with hematology/oncology. 5. History of diastolic congestive heart failure: Currently getting gentle fluids. holding torsemide, has lower extremity edema. Await cardiac input. 6. Acute renal failure and chronic kidney disease stage 3. Baseline creatinine of 2- 2.5, currently creatinine of 3.3. on gentle fluids and diuretic on hold. We will follow the labs. 7. Anemia of chronic kidney disease: Hemoglobin around 9. The patient getting iron infusions, follow with hematology/oncology. 8. Deep venous thrombosis prophylaxis, sequential compression devices for now. 9. Disposition: Closely monitor in the tele floor. Level 1 full code. MTDD
[2019-09-10] MEDS: LORazepam 1 MG TAB PO SCH ×2 (03:57→20:39)
[2019-09-10] MEDS ORDERED: INSULIN ASPART 100 UNITS/ML 3 ML PEN SC SCH ×3 (04:00→07:30)
[2019-09-10] MEDS: HYDROCORTISONE 10 MG TAB PO SCH ×3 (05:21→15:23)
[2019-09-10 05:54] LABS: BUN Creatinine Ratio 10.8 (10-20); Calcium 8.1 mg/dl (8.5-10.1); Est GFR (Non-African American) 16.4; Potassium 3.9 mmol/L (3.5-5.1)
[2019-09-10 06:40] LABS: Estimated Average Glucose 126 mg/dl
[2019-09-10 06:48] LABS: Hematocrit (blood only) 30.6 % (42-52); Hemoglobin 8.8 g/dL (14.0-18.0); Mean Corpuscular Hemoglobin 23.3 pg (25-34); Mean Corpuscular Hgb Conc 28.8 g/dL (32-36); Mean Corpuscular Volume 81.2 fL (80-100); Mean Platelet Volume 8.8 fL (7.4-10.4); Platelet Count 308 K/uL (130-400); RDW Coefficient of Variation 19.4 % (11.5-14.5); RDW Standard Deviation 56.8 fL (36.4-46.3); Red Blood Count 3.77 M/uL (4.7-6.1)
[2019-09-10 06:49] LABS: Basophils # (auto) 0.02 K/uL (0-0.2); Basophils % (auto) 0.3 %; Eosinophils # (auto) 0.26 K/uL (0-0.5); Eosinophils % (auto) 4.3 %; Lymphocytes # (auto) 1.08 K/uL (1.2-3.4); Lymphocytes % (auto) 17.7 %; Monocytes # (auto) 0.56 K/uL (0.11-0.59); Monocytes % (auto) 9.2 %; Neutrophils # (auto) 4.18 K/uL (1.4-6.5); Neutrophils % (auto) 68.5 %
[2019-09-10] MEDS: PRAMIPEXOLE DIHYDROCHLO 0.5 MG TAB PO SCH ×2 (08:03→20:40)
[2019-09-10] MEDS: FLUDROCORTISONE ACETATE 0.1 MG TAB PO SCH (08:03)
[2019-09-10] MEDS: CALCITRIOL 0.25 MCG CAPSULE PO SCH (08:03)
[2019-09-10] MEDS: AMLODIPINE BESYLATE 5 MG TAB PO SCH (08:04)
[2019-09-10] MEDS: CHOLECALCIFEROL 1,000 UNITS 25 MCG TAB PO SCH (08:06)
[2019-09-10] MEDS ORDERED: TORSEMIDE 20 MG TAB PO SCH (09:00)
[2019-09-10] MEDS: INSULIN GLARGINE SOLOSTAR 100 UNITS/ML 3 ML PEN SC SCH ×2 (09:23→20:39)
[2019-09-10] MEDS ORDERED: Nursing to Pharmacy Communication ONE (10:01)
[2019-09-10] MEDS: INSULIN ASPART 100 UNITS/ML 3 ML PEN SC SCH ×3 (11:59→20:40)
--- NOTE | 2019-09-10 12:11 | Cardiology Consultation ---
Date of Consultation September 10, 2019 Assessment & Plan (1) Tachy-oscar syndrome: Patient with history of paroxysmal atrial fibrillation/flutter with poor tolerance of ventricular response rates. Patient has had successful control of rhythm predominantly with amiodarone therapy but has resulted in significant bradycardia arrhythmias observed on outpatient monitoring. Patient will warrant pacemaker insertion for management. Amiodarone currently on hold with ultimate plans to resume following pacemaker insertion Maintain telemetry We will make arrangements for device insert (2) Sleep apnea: (3) Paroxysmal atrial fibrillation: History of Present Illness Reason for Consultation: Sinus bradycardia with intermittent pauses, paroxysmal atrial fibrillation on amiodarone therapy Requesting Physician: Dr. Allen Attending Physician: Cherry Allen MD History of Present Illness Patient is complex 74-year-old male with underlying issues which include 1. Symptomatic paroxysmal atrial fibrillation/flutter on chronic amiodarone poor tolerance of elevated ventricular response rates 2. Contraindications to anticoagulation 3. Left bundle branch block 4. History of mildly reduced left ventricular systolic function, possibly tachycardia induced. Return to near normal 5. Acute decompensated presumably diastolic and probably systolic congestive heart failure signs and symptoms currently compensated 6. Symptomatic anemia, followed by PCP and Hematology. 7. Hypertension 8. Metastatic melanoma 9. Adrenal insufficiency 10. Type 2 diabetes mellitus 11. Stage 4 chronic kidney disease 12. Obstructive sleep apnea, CPAP therapy with recent decline in usage Patient presents now noting having been recently hospitalized with influenza B. He was recovering without acute complaint and gradually increasing activities. Due to concerns of possible tachybradycardia syndrome he had routine scheduled Zio patch monitor which returned episodes of multiple pauses longest greater than 7 seconds. Patient asymptomatic with events. Now without further arrhythmias since hospitalization. Amiodarone currently on hold. Denies chest pains tachypalpitations syncope or near syncope. Pulmonary status is improving. No worsening edema. Has not been using CPAP faithfully du e to recent infection. No fevers or chills. No bleeding difficulties currently. Frustrated regarding hospitalization Allergies Allergy/AdvReac Type Severity Reaction Status Date / Time perflutren AdvReac Intermediate GI SYMPTOMS Verified 08/17/19 16:42 propylene glycol AdvReac Intermediate GI SYMPTOMS Verified 08/17/19 16:42 simvastatin AdvReac Intermediate JOINT AND Verified 08/17/19 16:42 MUSCLE PAIN Home Medications Home Medications Medication Instructions Recorded Confirmed Type cholecalciferol (vitamin D3) 1,000 unit PO QAM 04/20/18 09/09/19 History [Vitamin D3] docusate sodium [Colace] 100 mg PO AMHS 04/20/18 09/09/19 History pramipexole 0.5 mg tablet 0.5 mg PO BID 06/01/18 09/09/19 History ondansetron HCl 4 mg tablet 4 mg PO Q8H PRN tab 08/10/18 09/09/19 History acetaminophen [Tylenol Extra 500 mg PO Q6H PRN 05/22/19 09/09/19 History Strength] methylprednisolone sodium succ 125 mg IM DIRECTED PRN 05/22/19 09/09/19 History triamcinolone acetonide 1 applic TOPICAL BID PRN 05/22/19 09/09/19 History Lantus Solostar U-100 Insulin 30 unit SC BID 07/02/19 09/09/19 History fludrocortisone 0.1 mg PO QAM 07/02/19 09/09/19 History hydrocortisone 10 mg PO DAILY@1200,1500 07/02/19 09/09/19 History hydrocortisone 20 mg PO DAILY@0500 07/02/19 09/09/19 History lorazepam 1 mg PO HS 07/02/19 09/09/19 History gabapentin 100 mg PO TID 07/29/19 09/09/19 History lorazepam 1 mg PO DAILY PRN 07/29/19 09/09/19 History amiodarone 200 mg PO QAM 08/17/19 09/09/19 History torsemide 20 mg PO QAM 08/17/19 09/09/19 History amlodipine [Norvasc] 10 mg PO QAM 08/25/19 09/09/19 History calcitriol 0.5 mcg PO DAILY 09/09/19 09/09/19 History Patient History Medical History Adrenal insufficiency S/P LEFT ADRENALECTOMY- ON CHRONIC HYDROCORTISONE Anxiety (Chronic) Cardiomyopathy (Chronic) Degenerative disc disease (Chronic) Dyslipidemia (Chronic) H/O transfusion of packed red blood cells S/P 2 UNITS (2016) History of immunotherapy (Chronic) Keytruda x 2 Cycles (had to stop after 2nd cycle) Current Opdivo q 2 weeks (currently on hold) - started 05/2017 - 04/2018 Hypertension Morbid obesity (Chronic) Sleep apnea CPAP HS Stage 3 chronic kidney disease (Chronic) Surgical History History of colonoscopy 2016 History of esophagogastroduodenoscopy (EGD) 2017 History of tooth extraction Hx of 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 Mother Colon cancer, Onset Age: 85 Chemo and Resection - Alive and well now Sister Breast cancer, Onset Age: 55 Had Radiation - Alive and well now Sister No problems noted. Sister No problems noted. Sister No problems noted. Sister No problems noted. Brother No problems noted. Son No problems noted. Son No problems noted. Social History Preferred Language: [place] Communication Ability: Effective Visual Impairment: Limited Hearing Ability: Hard of Hearing Lead Pressman Required: No Beliefs That Will Affect Care: None marital status: Single Current Living Situation: Family current occupational status: retired current occupation: Retired - [employer] Other Information That Helps Us Care for You: No Feels Safe at Home: Yes Safety Concerns: Feels Safe At This Time Smoking Status: Unknown if ever smoked Hx Alcohol Use: No Hx Substance Use: No caffeine: Yes (2 cups of coffee/day ) during the past year weight has: remained stable Physical Exam Constitutional: WD/WN, vitals as above + obese Eyes: PERRL, conjunctivae normal, anicteric sclerae ENMT: external ear and nose normal, oropharynx normal Neck: trachea midline, no thyromegaly + thick neck Respiratory: Auscultation: + diminished lung sounds (But clear) Cardiovascular: Rate/Rhythm: regular rate and regular rhythm Heart Sounds: normal S1 and normal S2; no gallop and no murmur Palpation: normal PMI Vessels: normal carotid upstroke and radial pulses present; no JVD and no carotid bruit Extremities: + edema (1+) Gastrointestinal (Abdomen): normal bowel sounds, soft, nontender, no hepatosplenomegaly Musculoskeletal: no cyanosis or clubbing, extremities motor strength 5/5 Skin: no rashes, warm and dry Neurologic: PERRL, EOMI, accommodation nl, no face palsy, no dysarthria Psychiatric: A+Ox3, euthymic affect Results & Data ([facility]) Vital Signs (Past 12 Hours) Vital Signs Temp Pulse Pulse Pulse Resp BP Pulse Ox 09/10/19 11:16 36.3 C L 72 20 137/64 93 09/10/19 11:00 36.6 C 68 20 102/54 L 92 09/10/19 07:18 36.5 C 81 24 146/72 H 94 09/10/19 04:16 36.7 C 73 16 135/63 92 09/10/19 01:15 84 22 134/72 94 Laboratory Results Laboratory Results - last 24 hr 09/09/19 09/09/19 09/09/19 20:37 20:37 20:37 WBC 6.75 RBC 3.82 L Hgb 9.0 L Hct 30.9 L MCV 80.9 MCH 23.6 L MCHC 29.1 L RDW Std Deviation 57.1 H RDW Coeff of Scottie 19.4 H Plt Count 337 MPV 8.6 Immature Gran % (Auto) 0.1 Neut % (Auto) 76.1 Lymph % (Auto) 13.6 Fleming % (Auto) 6.5 Eos % (Auto) 3.3 Baso % (Auto) 0.4 Immature Gran # (Auto) 0.01 Neut # (Auto) 5.13 Lymph # (Auto) 0.92 L Fleming # (Auto) 0.44 Eos # (Auto) 0.22 Baso # (Auto) 0.03 PT 10.2 INR 1.0 APTT 30.2 PTT Ratio 1.1 Sodium 141 Potassium 4.0 Chloride 108 H Carbon Dioxide 28 Anion Gap 5.0 BUN 38 H Creatinine 3.31 H Est Cr Clr Drug Dosing 28.5 Est GFR ( Amer) 20.4 Est GFR (Non-Af Amer) 17.6 BUN/Creatinine Ratio 11.5 Glucose 108 H POC Glucose Estimat Average Glucose Hemoglobin A1c Calcium 8.4 L Magnesium Total Bilirubin 0.3 AST 13 L ALT 19 Alkaline Phosphatase 67 Troponin I < 0.015 Total Protein 6.7 Albumin 2.8 L Globulin 3.9 Albumin/Globulin Ratio 0.7 L 09/10/19 09/10/19 09/10/19 00:10 04:12 05:25 WBC 6.10 RBC 3.77 L Hgb 8.8 L Hct 30.6 L MCV 81.2 MCH 23.3 L MCHC 28.8 L RDW Std Deviation 56.8 H RDW Coeff of Scottie 19.4 H Plt Count 308 MPV 8.8 Immature Gran % (Auto) 0.0 Neut % (Auto) 68.5 Lymph % (Auto) 17.7 Fleming % (Auto) 9.2 Eos % (Auto) 4.3 Baso % (Auto) 0.3 Immature Gran # (Auto) 0.00 Neut # (Auto) 4.18 Lymph # (Auto) 1.08 L Fleming # (Auto) 0.56 Eos # (Auto) 0.26 Baso # (Auto) 0.02 PT INR APTT PTT Ratio Sodium Potassium Chloride Carbon Dioxide Anion Gap BUN Creatinine Est Cr Clr Drug Dosing Est GFR ( Amer) Est GFR (Non-Af Amer) BUN/Creatinine Ratio Glucose POC Glucose 86 81 Estimat Average Glucose Hemoglobin A1c Calcium Magnesium Total Bilirubin AST ALT Alkaline Phosphatase Troponin I Total Protein Albumin Globulin Albumin/Globulin Ratio 09/10/19 09/10/19 09/10/19 05:25 05:25 06:03 WBC RBC Hgb Hct MCV MCH MCHC RDW Std Deviation RDW Coeff of Scottie Plt Count MPV Immature Gran % (Auto) Neut % (Auto) Lymph % (Auto) Fleming % (Auto) Eos % (Auto) Baso % (Auto) Immature Gran # (Auto) Neut # (Auto) Lymph # (Auto) Fleming # (Auto) Eos # (Auto) Baso # (Auto) PT INR APTT PTT Ratio Sodium 143 Potassium 3.9 Chloride 110 H Carbon Dioxide 30 Anion Gap 3.0 BUN 38 H Creatinine 3.51 H Est Cr Clr Drug Dosing 27.0 Est GFR ( Amer) 19.0 Est GFR (Non-Af Amer) 16.4 BUN/Creatinine Ratio 10.8 Glucose 82 POC Glucose 87 Estimat Average Glucose 126 Hemoglobin A1c 6.0 H Calcium 8.1 L Magnesium 2.0 Total Bilirubin AST ALT Alkaline Phosphatase Troponin I Total Protein Albumin Globulin Albumin/Globulin Ratio 09/10/19 09/10/19 07:16 11:30 WBC RBC Hgb Hct MCV MCH MCHC RDW Std Deviation RDW Coeff of Scottie Plt Count MPV Immature Gran % (Auto) Neut % (Auto) Lymph % (Auto) Fleming % (Auto) Eos % (Auto) Baso % (Auto) Immature Gran # (Auto) Neut # (Auto) Lymph # (Auto) Fleming # (Auto) Eos # (Auto) Baso # (Auto) PT INR APTT PTT Ratio Sodium Potassium Chloride Carbon Dioxide Anion Gap BUN Creatinine Est Cr Clr Drug Dosing Est GFR ( Amer) Est GFR (Non-Af Amer) BUN/Creatinine Ratio Glucose POC Glucose 93 151 H Estimat Average Glucose Hemoglobin A1c Calcium Magnesium Total Bilirubin AST ALT Alkaline Phosphatase Troponin I Total Protein Albumin Globulin Albumin/Globulin Ratio Diagnostic Findings ZIO Patch event monitor Patient had a min HR of 30 bpm, max HR of 189 bpm, and avg HR of 83 bpm. Predominant underlying rhythm was Sinus Rhythm. Intermittent Bundle Branch Block was present. Atrial Flutter occurred (1% burden), ranging from 84-189 bpm (avg of 129 bpm), the longest lasting 54 mins 57 secs with an avg rate of 127 bpm. 34 Pauses occurred, the longest lasting 6.9 secs (9 bpm). Some Pauses occurred due to Possible Second Degree AV Block. Isolated SVEs were rare (<1.0%), SVE Couplets were rare (<1.0%), and SVE Triplets were rare (<1.0%). Isolated VEs were rare (<1.0%), and no VE Couplets or VE Triplets were present. Ventricular Bigeminy was present. MD notification criteria for Pauses/Ventricular Asystole met - notified Nic North on 09 Sep 2019 at 9:09am CT ([facility]). Agree with the above interpretation.
--- NOTE | 2019-09-10 14:43 | Hospitalist Progress Note ---
Date of Service September 10, 2019 Assessment & Plan (1) Tachy-oscar syndrome: History of paroxysmal/a flutter, Outpatient ZIO patch demonstrated sinus pause Appreciate input from cardiology amiodarone kept on hold Continue to monitor in telemetry/no bradycardia arrhythmia or sinus pause noted since admission to telemetry May need pacemaker placement History of paroxysmal A. fib/a flutter : Was on amiodarone, kept on hold secondary to multiple sinus pauses noted on recent zio patch monitor Patient is not on anticoagulation: Secondary to history of bladder cancer persistent hematuria, increased bleeding risk History of bladder cancer: Develops intermittent hematuria, anticoagulation contraindicated Adrenal insufficiency Continue outpatient steroid CKD stage IV Monitor renal function while in hospital avoid NSAIDs contrast studies Type 2 diabetes-on insulin treatment at home Insulin sliding scale /continue basal Lantus Blood sugar monitoring before meals and at bedtime CODE STATUS: Full code Prophylaxis SCD and teds Disposition: Expected to be discharged home and when medically stable Admission and Anticipated Discharge Date Admission Date: September 09, 2019 Subjective Denies of any chest pain, no shortness of breath, no dizzy spell or palpitation No cough, no fever or chills Review of Systems Review of Systems: All systems reviewed & are unremarkable except as noted in HPI & below Constitutional: no fever, no chills and no fatigue Respiratory: no cough, no dyspnea and no dyspnea on exertion Cardiovascular: no chest pain, no dyspnea, no lightheadedness and no syncope Physical Exam Constitutional: WD/WN, vitals as above no acute distress Eyes: PERRL, conjunctivae normal, anicteric sclerae ENMT: external ear and nose normal, oropharynx normal Neck: trachea midline, no thyromegaly Respiratory: normal respiratory effort, lungs clear to auscultation Cardiovascular: RRR, no murmur, no edema Gastrointestinal (Abdomen): normal bowel sounds, soft, nontender, no hepatosplenomegaly Musculoskeletal: no cyanosis or clubbing, extremities motor strength 5/5 Skin: no rashes, warm and dry Neurologic: PERRL, EOMI, accommodation nl, no face palsy, no dysarthria Psychiatric: A+Ox3, euthymic affect Results & Data ([facility]) Vital Signs (Past 12 Hours) Vital Signs Temp Pulse Pulse Resp BP Pulse Ox 09/10/19 11:16 36.3 C L 72 20 137/64 93 09/10/19 11:00 36.6 C 68 20 102/54 L 92 09/10/19 07:18 36.5 C 81 24 146/72 H 94 09/10/19 04:16 36.7 C 73 16 135/63 92
--- NOTE | 2019-09-10 18:09 | Electrocardiogram Report ---
Test Reason : Blood Pressure : / mmHG Vent. Rate : 080 BPM Atrial Rate : 080 BPM P-R Int : 160 ms QRS Dur : 136 ms QT Int : 418 ms P-R-T Axes : 042 009 094 degrees QTc Int : 482 ms Poor data quality, interpretation may be adversely affected Normal sinus rhythm Left bundle branch block Abnormal ECG When compared with ECG of 25-AUG-2019 20:37, No significant change was found Confirmed by Gil Lafleur ([id number]) on 09/10/2019 6:08:39 PM Referred By: REFERRED SELF Confirmed By:Gal Lafleur
[2019-09-11] MEDS: NITROGLYCERIN 2% OINTMENT 30GM TUBE EXT SCH ×3 (05:25→16:53)
[2019-09-11] MEDS: HYDROCORTISONE 10 MG TAB PO SCH ×3 (05:26→15:04)
[2019-09-11] MEDS: INSULIN ASPART 100 UNITS/ML 3 ML PEN SC SCH ×4 (08:19→20:27)
[2019-09-11] MEDS: INSULIN GLARGINE SOLOSTAR 100 UNITS/ML 3 ML PEN SC SCH ×2 (08:20→20:25)
[2019-09-11] MEDS: GABAPENTIN 100 MG CAP PO SCH ×3 (08:20→20:26)
[2019-09-11] MEDS: DOCUSATE SODIUM 100 MG CAP PO SCH ×2 (08:21→20:25)
[2019-09-11] MEDS: PRAMIPEXOLE DIHYDROCHLO 0.5 MG TAB PO SCH ×2 (08:21→20:25)
[2019-09-11] MEDS: AMLODIPINE BESYLATE 5 MG TAB PO SCH (08:21)
[2019-09-11] MEDS: CALCITRIOL 0.25 MCG CAPSULE PO SCH (08:22)
[2019-09-11] MEDS: CHOLECALCIFEROL 1,000 UNITS 25 MCG TAB PO SCH (08:22)
[2019-09-11] MEDS: FLUDROCORTISONE ACETATE 0.1 MG TAB PO SCH (08:22)
--- NOTE | 2019-09-11 10:55 | Hospitalist Progress Note ---
Date of Service September 11, 2019 Assessment & Plan (1) Tachy-oscar syndrome: History of paroxysmal/a flutter, Outpatient ZIO patch demonstrated sinus pause-concern for possible tachybradycardia syndrome Patient had very poor tolerance to rapid A. fib/RVR in the past, was very symptomatic with chest heaviness dizzy spell and palpitation Appreciate input from cardiology Amiodarone has been kept on hold since admission for concern of sinus pause/bra dycardia No rhythm abnormalities noted in telemetry since admission Will need to be on antiarrhythmic medication to rate controlled A. fib VR Plan for permanent pacemaker placement possible tomorrow History of paroxysmal A. fib/a flutter : Was on amiodarone, kept on hold secondary to multiple sinus pauses noted on recent zio patch monitor Plan for possible pacemaker placement tomorrow, Amiodarone will be resumed after pacemaker placement Patient is not on anticoagulation: Secondary to history of bladder cancer persistent hematuria, increased bleeding risk History of bladder cancer: Develops intermittent hematuria, anticoagulation contraindicated Adrenal insufficiency Continue outpatient steroid CKD stage IV Creatinine was elevated from baseline during hospital admission, Zaroxolyn was kept on hold Monitor renal function while in hospital avoid NSAIDs contrast studies Chronic CHF with diastolic dysfunction (HFpEF) Worsening of bilateral pitting edema noted after holding diuretics Zaroxolyn resumed, Monitor volume status daily BMP Type 2 diabetes-on insulin treatment at home Insulin sliding scale /continue basal Lantus Blood sugar monitoring before meals and at bedtime CODE STATUS: Full code Prophylaxis SCD and teds Disposition: Expected to be discharged home and when medically stable Admission and Anticipated Discharge Date Admission Date: September 09, 2019 Subjective Patient sitting up in chair, denies of any discomfort, no shortness of breath, did not had any dizzy spell or lightheadedness No sinus pause noted on telemetry overnight Does not have any cough no fever or chills Reports of increased swelling of bilateral lower extremity/ankle since admission Review of Systems Review of Systems: All systems reviewed & are unremarkable except as noted in HPI & below Constitutional: no fever, no chills, no sweats, no fatigue and no weakness Respiratory: no cough, no dyspnea, no dyspnea on exertion and no sputum production Cardiovascular: + edema; no chest pain, no chest pain at rest, no dyspnea, no lightheadedness and no syncope Physical Exam Constitutional: WD/WN, vitals as above no acute distress Eyes: PERRL, conjunctivae normal, anicteric sclerae ENMT: external ear and nose normal, oropharynx normal Neck: trachea midline, no thyromegaly Respiratory: normal respiratory effort, lungs clear to auscultation Cardiovascular: Rate/Rhythm: regular rate and regular rhythm Extremities: + pedal edema (+2 bilateral pitting edema) Gastrointestinal (Abdomen): normal bowel sounds, soft, nontender, no hepatosplenomegaly Musculoskeletal: no cyanosis or clubbing, extremities motor strength 5/5 Skin: no rashes, warm and dry Neurologic: PERRL, EOMI, accommodation nl, no face palsy, no dysarthria Psychiatric: A+Ox3, euthymic affect Results & Data ([facility]) Vital Signs (Past 12 Hours) Vital Signs Temp Pulse Resp BP Pulse Ox 09/11/19 07:23 36.3 C L 75 21 157/73 H 97 09/11/19 05:30 36.3 C L 80 18 120/65 96 09/10/19 23:15 36.5 C 81 18 115/97 95
--- NOTE | 2019-09-11 11:29 | Cardiology Progress Note ---
Date of Service September 11, 2019 Assessment & Plan (1) Tachy-oscar syndrome: Patient with history of paroxysmal atrial fibrillation/flutter with poor tolerance of ventricular response rates. Patient has had successful control of rhythm predominantly with amiodarone therapy but has resulted in significant bradycardia arrhythmias observed on outpatient monitoring. Patient will warrant pacemaker insertion for management. Amiodarone currently on hold with ultimate plans to resume following pacemaker insertion Maintain telemetry We will make arrangements for device insert on Thursday with plans to resume amiodarone post pacemaker insertion Give additional dose of torsemide today for increasing lower extremity edema. (2) Sleep apnea: Patient will need more consistent use (3) Paroxysmal atrial fibrillation: Plan resume amiodarone after pacemaker insertion Subjective Patient seen and examined, chart medications and telemetry reviewed. No further atrial fibrillation or profound pauses with nocturnal bradycardia observed. Moderate extremely edema but slept in chair last Physical Exam Constitutional: WD/WN, vitals as above + obese Eyes: PERRL, conjunctivae normal, anicteric sclerae ENMT: external ear and nose normal, oropharynx normal Neck: trachea midline, no thyromegaly + thick neck Respiratory: Auscultation: + diminished lung sounds (But clear) Cardiovascular: Rate/Rhythm: regular rate and regular rhythm Heart Sounds: normal S1 and normal S2; no gallop and no murmur Palpation: normal PMI Vessels: normal carotid upstroke and radial pulses present; no JVD and no carotid bruit Extremities: + edema (2-3) Gastrointestinal (Abdomen): normal bowel sounds, soft, nontender, no hepatosplenomegaly Musculoskeletal: no cyanosis or clubbing, extremities motor strength 5/5 Skin: no rashes, warm and dry Neurologic: PERRL, EOMI, accommodation nl, no face palsy, no dysarthria Psychiatric: A+Ox3, euthymic affect Results & Data Vital Signs (Past 12 Hours) Vital Signs Temp Pulse Resp BP Pulse Ox 09/11/19 11:04 36.3 C L 75 20 145/62 H 95 09/11/19 07:23 36.3 C L 75 21 157/73 H 97 09/11/19 05:30 36.3 C L 80 18 120/65 96
[2019-09-11] MEDS ORDERED: TORSEMIDE 10 MG TAB PO ONE (11:30)
[2019-09-11 11:33] LABS: BUN Creatinine Ratio 10.5 (10-20); Calcium 8.2 mg/dl (8.5-10.1); Creatinine Clr Calc Pharmacy 24.2 ml/min; Est GFR (African American) 16.6; Est GFR (Non-African American) 14.4; Potassium 4.1 mmol/L (3.5-5.1)
--- NOTE | 2019-09-11 13:16 | Cardiology Consultation ---
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 He is currently on amiodarone with good control of high heart rates but episodes of bradycardia and a history of syncope. As such, he seems to be a good candidate for permanent pacemaker due to tachy-oscar syndrome. I do not believe he has an indication for a biventricular device. Despite left bundle branch block, his left ventricular function appears to be preserved. I did discuss the risks benefits and alternatives to a permanent pacemaker. Patient and his son are in agreement and we will plan on proceeding tomorrow. He does not endorse a history of prior port placement which could potentially complicate access. He does appear to be somewhat immunocompromised been on chronic steroids which may require some additional prophylaxis against device infection. (2) Paroxysmal atrial fibrillation: Currently in sinus rhythm. Not on anticoagulation due to history of hematuria. (3) Left bundle branch block: Chronic. Preserved LV systolic function. No indication for PILE OPERATOR. History of Present Illness Reason for Consultation: Tachy-oscar syndrome Requesting Physician: Zev Attending Physician: Cherry Allen MD History of Present Illness Patient is a 74-year-old gentleman with multiple medical problems will also suffer some paroxysmal atrial fibrillation. In the past he was noted to have high ventricular rates and associated cardiomyopathy. More recently the patient's rate control has been good with the addition of amiodarone. However, on outpatient monitoring he was noted to have episodes of significant bradycardia manifest by sinus arrest and pauses up to 7 seconds in duration. Patient does report 1 episode of syncope. This apparently occurred while seated and riding to the hospital with his son. He was not aware of palpitation at that time. This occurred approximately 1 month ago. He is not endorse symptoms of dizziness or lightheadedness most of the time. He generally is not aware of any palpitations. He has not been complaining of chest pain recently and his breathing appears to be at baseline. Allergies Allergy/AdvReac Type Severity Reaction Status Date / Time perflutren AdvReac Intermediate GI SYMPTOMS Verified 08/17/19 16:42 propylene glycol AdvReac Intermediate GI SYMPTOMS Verified 08/17/19 16:42 simvastatin AdvReac Intermediate JOINT AND Verified 08/17/19 16:42 MUSCLE PAIN Home Medications Home Medications Medication Instructions Recorded Confirmed Type cholecalciferol (vitamin D3) 1,000 unit PO QAM 04/20/18 09/09/19 History [Vitamin D3] docusate sodium [Colace] 100 mg PO AMHS 04/20/18 09/09/19 History pramipexole 0.5 mg tablet 0.5 mg PO BID 06/01/18 09/09/19 History ondansetron HCl 4 mg tablet 4 mg PO Q8H PRN tab 08/10/18 09/09/19 History acetaminophen [Tylenol Extra 500 mg PO Q6H PRN 05/22/19 09/09/19 History Strength] methylprednisolone sodium succ 125 mg IM DIRECTED PRN 05/22/19 09/09/19 History triamcinolone acetonide 1 applic TOPICAL BID PRN 05/22/19 09/09/19 History Lantus Solostar U-100 Insulin 30 unit SC BID 07/02/19 09/09/19 History fludrocortisone 0.1 mg PO QAM 07/02/19 09/09/19 History hydrocortisone 10 mg PO DAILY@1200,1500 07/02/19 09/09/19 History hydrocortisone 20 mg PO DAILY@0500 07/02/19 09/09/19 History lorazepam 1 mg PO HS 07/02/19 09/09/19 History gabapentin 100 mg PO TID 07/29/19 09/09/19 History lorazepam 1 mg PO DAILY PRN 07/29/19 09/09/19 History amiodarone 200 mg PO QAM 08/17/19 09/09/19 History torsemide 20 mg PO QAM 08/17/19 09/09/19 History amlodipine [Norvasc] 10 mg PO QAM 08/25/19 09/09/19 History calcitriol 0.5 mcg PO DAILY 09/09/19 09/09/19 History Patient History Medical History Adrenal insufficiency S/P LEFT ADRENALECTOMY- ON CHRONIC HYDROCORTISONE Anxiety (Chronic) Cardiomyopathy (Chronic) Degenerative disc disease (Chronic) Dyslipidemia (Chronic) H/O transfusion of packed red blood cells S/P 2 UNITS (2016) History of immunotherapy (Chronic) Keytruda x 2 Cycles (had to stop after 2nd cycle) Current Opdivo q 2 weeks (currently on hold) - started 05/2017 - 04/2018 Hypertension Morbid obesity (Chronic) Sleep apnea CPAP HS Stage 3 chronic kidney disease (Chronic) Surgical History History of colonoscopy 2016 History of esophagogastroduodenoscopy (EGD) 2017 History of tooth extraction Hx of 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 Mother Colon cancer, Onset Age: 85 Chemo and Resection - Alive and well now Sister Breast cancer, Onset Age: 55 Had Radiation - Alive and well now Sister No problems noted. Sister No problems noted. Sister No problems noted. Sister No problems noted. Brother No problems noted. Son No problems noted. Son No problems noted. Social History Preferred Language: Tajik Communication Ability: Effective Visual Impairment: Limited Hearing Ability: Hard of Hearing Senior Architect/Design Manager Required: No Beliefs That Will Affect Care: None marital status: Single Current Living Situation: Family current occupational status: retired current occupation: Retired - [employer] Other Information That Helps Us Care for You: No Feels Safe at Home: Yes Safety Concerns: Feels Safe At This Time Smoking Status: Unknown if ever smoked Hx Alcohol Use: No Hx Substance Use: No caffeine: Yes (2 cups of coffee/day ) during the past year weight has: remained stable Review of Systems Review of Systems: All systems reviewed & are unremarkable except as noted in HPI & below Physical Exam Physical Exam: The patient is alert and oriented. Mood and affect appeared normal. He answered all questions appropriately. Morbidly obese HEENT: Pupils are equal and reactive to light and accommodation. Extraocular movements are intact. The sclerae are anicteric. Neuro: Cranial nerves intact Neck: Redundant neck tissue Lungs: Clear to auscultation bilaterally. He has good air movement without use of accessory muscles. No rales wheezes or rhonchi. Cardiac: Heart demonstrates an irregular rate and rhythm. Normal S1 and S2. No murmurs on examination. Pulses: The patient has palpable radial pulses bilaterally that are equal in intensity Extremities: There was no evidence of hypoperfusion. There is no cyanosis or clubbing. Skin: I did not appreciate any rashes on examination today. Results & Data ([facility]) Vital Signs (Past 12 Hours) Vital Signs Temp Pulse Resp BP Pulse Ox 09/11/19 11:04 36.3 C L 75 20 145/62 H 95 09/11/19 07:23 36.3 C L 75 21 157/73 H 97 09/11/19 05:30 36.3 C L 80 18 120/65 96 Laboratory Results Abnormal Lab Results 09/10/19 09/10/19 09/11/19 16:30 20:29 07:22 Sodium Potassium Chloride Carbon Dioxide Anion Gap BUN Creatinine Est Cr Clr Drug Dosing Est GFR ( Amer) Est GFR (Non-Af Amer) BUN/Creatinine Ratio Glucose POC Glucose 89 99 136 H Calcium 09/11/19 09/11/19 10:30 11:03 Sodium 139 Potassium 4.1 Chloride 105 Carbon Dioxide 27 Anion Gap 7.0 BUN 41 H Creatinine 3.92 H D Est Cr Clr Drug Dosing 24.2 Est GFR ( Amer) 16.6 Est GFR (Non-Af Amer) 14.4 BUN/Creatinine Ratio 10.5 Glucose 152 H POC Glucose 145 H Calcium 8.2 L Diagnostic Findings Echocardiogram performed 08/19/2019 revealed preserved LV systolic function. Exam compromised by body habitus. ECG Additional Comments: Normal sinus rhythm with left bundle branch block PG Care Time/CCT Total # of Minutes Spent Total Time Spent with Patient: Total time spent is greater than 50% in coordination of care (as documented) at patient's floor/unit and/or counseling patient: Coding Level of Care Code 10727 Initial Inpt Care Lvl 3 Diagnoses Tachy-oscar syndrome I49.5 Paroxysmal atrial fibrillation I48.0 Left bundle branch block I44.7
--- NOTE | 2019-09-11 16:52 | Electrocardiogram Report ---
Test Reason : Blood Pressure : / mmHG Vent. Rate : 074 BPM Atrial Rate : 074 BPM P-R Int : 000 ms QRS Dur : 138 ms QT Int : 430 ms P-R-T Axes : 000 026 128 degrees QTc Int : 477 ms Sinus rhythm Left bundle branch block Abnormal ECG When compared with ECG of 10-SEP-2019 07:22, No change Confirmed by Gil Lafleur ([id number]) on 09/11/2019 4:51:45 PM Referred By: REFERRED SELF Confirmed By:Gal Lafleur
[2019-09-11] MEDS: LORazepam 1 MG TAB PO SCH (20:25)
[2019-09-12] MEDS: NITROGLYCERIN 2% OINTMENT 30GM TUBE EXT SCH ×4 (00:23→17:32)
[2019-09-12] MEDS: HYDROCORTISONE 10 MG TAB PO SCH ×3 (04:57→15:34)
[2019-09-12 07:18] LABS: Basophils # (auto) 0.04 K/uL (0-0.2); Basophils % (auto) 0.6 %; Eosinophils % (auto) 2.9 %; Hematocrit (blood only) 30.8 % (42-52); Hemoglobin 8.9 g/dL (14.0-18.0); Immature Granulocytes # (auto) 0.02 K/uL (0.00-0.02); Immature Granulocytes % (auto) 0.3 %; Lymphocytes # (auto) 0.76 K/uL (1.2-3.4); Lymphocytes % (auto) 11.2 %; Mean Corpuscular Hemoglobin 23.5 pg (25-34); Mean Corpuscular Hgb Conc 28.9 g/dL (32-36); Mean Corpuscular Volume 81.3 fL (80-100); Mean Platelet Volume 8.5 fL (7.4-10.4); Monocytes # (auto) 0.67 K/uL (0.11-0.59); Monocytes % (auto) 9.9 %; Neutrophils % (auto) 75.1 %; Platelet Count 305 K/uL (130-400); RDW Coefficient of Variation 19.6 % (11.5-14.5); RDW Standard Deviation 57.2 fL (36.4-46.3); Red Blood Count 3.79 M/uL (4.7-6.1); White Blood Count 6.79 K/uL (4.8-10.8)
[2019-09-12 07:40] LABS: BUN Creatinine Ratio 9.4 (10-20); Calcium 8.9 mg/dl (8.5-10.1); Creatinine Clr Calc Pharmacy 21.4 ml/min; Est GFR (African American) 14.3; Est GFR (Non-African American) 12.4; Magnesium 2.1 mg/dl (1.8-2.4); Potassium 4.1 mmol/L (3.5-5.1)
[2019-09-12] MEDS: DOCUSATE SODIUM 100 MG CAP PO SCH ×2 (08:14→21:12)
[2019-09-12] MEDS: AMLODIPINE BESYLATE 5 MG TAB PO SCH (08:14)
[2019-09-12] MEDS: GABAPENTIN 100 MG CAP PO SCH ×3 (08:14→21:11)
[2019-09-12] MEDS: CHOLECALCIFEROL 1,000 UNITS 25 MCG TAB PO SCH (08:14)
[2019-09-12] MEDS: PRAMIPEXOLE DIHYDROCHLO 0.5 MG TAB PO SCH ×2 (08:14→21:12)
[2019-09-12] MEDS: FLUDROCORTISONE ACETATE 0.1 MG TAB PO SCH (08:15)
[2019-09-12] MEDS: CALCITRIOL 0.25 MCG CAPSULE PO SCH (08:15)
[2019-09-12] MEDS: INSULIN ASPART 100 UNITS/ML 3 ML PEN SC SCH ×3 (08:16→21:10)
[2019-09-12] MEDS: INSULIN GLARGINE SOLOSTAR 100 UNITS/ML 3 ML PEN SC SCH ×2 (09:40→23:00)
--- NOTE | 2019-09-12 10:37 | Pre Anesthesia Assessment ---
Date of Service September 12, 2019 Pre Sedation Assessment Vital Signs Temp Pulse Resp BP Pulse Ox 09/12/19 07:36 36.8 C 71 19 151/76 H 94 09/11/19 23:37 36.4 C L 88 18 153/68 H 91 09/11/19 20:22 36.2 C L 75 16 162/66 H 95 09/11/19 16:27 36.4 C L 76 16 161/63 H 95 09/11/19 11:04 36.3 C L 75 20 145/62 H 95 Cardiovascular + regular rate Respiratory + respiratory effort normal Pre-Sedation Airway Assessment Smoking Status: Unknown if ever smoked Hx Sleep Apnea: No Hx Difficult Intubation: No Short, Thick Neck: No Thyromental Distance: > or= 3.5 Finger Breadths Oral Cavity: + WNL Mallampati Class: III ASA: ASA3 Procedure Planning Contraindications for Sedation: none Current Medications Reviewed: Yes Notes The planned sedation has been discussed with the patient. Informed Consent was obtained. I have identified the patient, determined the appropriateness of sedation and have assessed the patient immediately prior to the procedure. All medicine(s) and interventions are by my order.
[2019-09-12] MEDS ORDERED: BUPIVACAINE 0.25% 30 ML VIAL ONE (10:59)
[2019-09-12] MEDS ORDERED: BACITRACIN INJ 50,000 UNIT VIAL ONE (10:59)
[2019-09-12] MEDS ORDERED: LIDOCAINE HCL 1% 20 ML VIAL ONE (10:59)
[2019-09-12] MEDS ORDERED: CEFAZOLIN 250 MG/ML 1 GM VIAL ONE (11:18)
[2019-09-12] MEDS ORDERED: fentaNYL citrate 100 MCG/2 ML VIAL ONE (11:18)
[2019-09-12] MEDS ORDERED: MIDAZOLAM HCL 5 MG/ML 1 ML VIAL ONE (11:18)
[2019-09-12] MEDS ORDERED: INSULIN ASPART 100 UNITS/ML 3 ML PEN SC SCH (12:00)
[2019-09-12] MEDS ORDERED: OXYCODONE HCL IR 5 MG TAB (IMMEDIATE RELEASE) PO PRN (12:30)
--- NOTE | 2019-09-12 12:30 | Electrophysiology Report ---
Date of Service September 12, 2019 Electrophysiology Procedure Electrophysiology Procedure Report Procedure performed: Implantation of dual-chamber pacemaker Staff laundry routeman: Gil Lafleur MD Indication: The patient is a 74-year-old gentleman with a history of tachybradycardia syndrome. Currently on amiodarone. History of atrial fibrillation. On outpatient monitoring is noted to have significant pauses and did have an episode of syncope in the past. He is of a good candidate for permanent pacemaker due to symptomatic nonreversible sinus node dysfunction. A dual-chamber device was selected as the patient is currently in sinus rhythm and wished to maintain AV synchrony. Procedure in detail: The patient was informed of the risks benefits and alternatives to the intended procedure and she wished to proceed. He was taken to the electrophysiology suite in a fasting state. A preoperative antibiotic had been administered. The patient was monitored electrocardiographically throughout today's procedure and conscious sedation was administered per protocol. The left upper pectoral area is prepped and draped in usual sterile fashion. This area was anesthetized using subcutaneous administration of a xylocaine solution. An incision was made at this site and carried down to the prepectoralis fascia using sharp dissection. Electrocautery was also employed for dissection as well as for hemostasis. A device pocket was fashioned tissues above the pectoralis muscle. Subsequent to this maneuver the left axillary vein was accessed using modified Seldinger technique. Sheaths were placed over guidewires at this site and used to facilitate passage of the pacing leads to the respective chambers under fluoroscopic guidance. This included right atrial and right ventricular leads. Adequate sensing and threshold parameters were obtained prior to Active fixation of the leads to the endocardial surface. The proximal portion leads were then sutured the prepectoral fascia using nonabsorbable suture. The device pocket was irrigated with antibiotic solution. The leads were then attached to the device. The device and leads were then placed in the pocket and pocket was closed in 3 layers of absorbable suture. Steri-Strips and sterile dressing were applied. The device was tested noninvasively prior to conclusion the procedure. The patient tolerated procedure well there no immediate complications. Equipment used: New pulse generator: [employer]. Model number: [id number] serial number [id number] Right atrial lead: [employer]. Model number: 5076 serial number [id number] Right ventricular lead: Professional Nursing Tutor [employer]. Model number: 5076 serial number [id number] Measured data: Right atrial lead: P waves measure 3.2 mV. Pacing threshold 2.4 V at 0.5 ms with a pacing feeds of 847 ohms Right ventricular lead: R waves measured 11.6 mV. Pacing threshold 1.25 V 0.5 ms with a pacing P as of 980 ohms Impression: Successful implantation of dual-chamber permanent pacemaker MN[facility] Electrophysiology codes Pacing Procedure 1: Pacin Insert/Replace Pacer A & V PG Moderate Sedation Codes Moderate Sedation Codes Procedure 1: Sedation/Anesthesia: 06065 Mod Sedation by the same physician;Init15 Min Child Age 5 & Up Procedure 2: Sedation/Anesthesia: 27021 Mod Sedation by the same physician; Ea [id number] Minutes
--- NOTE | 2019-09-12 15:36 | Cardiology Progress Note ---
Date of Service September 12, 2019 Assessment & Plan (1) Tachy-oscar syndrome: Patient with history of paroxysmal atrial fibrillation/flutter with poor tolerance of ventricular response rates. Patient has had successful control of rhythm predominantly with amiodarone therapy but has resulted in significant bradycardia arrhythmias observed on outpatient monitoring. Patient will warrant pacemaker insertion for management. Amiodarone currently on hold with ultimate plans to resume following pacemaker insertion Maintain telemetry We will make arrangements for device insert on Thursday with plans to resume amiodarone post pacemaker insertion Give additional dose of torsemide today for increasing lower extremity edema. (2) Sleep apnea: Patient will need more consistent use (3) Paroxysmal atrial fibrillation: Plan resume amiodarone after pacemaker insertion Subjective Patient was seen and examined, chart, telemetry reviewed. Patient seen prior to pacemaker insertion and now post. Tolerated procedure well Physical Exam Constitutional: WD/WN, vitals as above + obese Eyes: PERRL, conjunctivae normal, anicteric sclerae ENMT: external ear and nose normal, oropharynx normal Neck: trachea midline, no thyromegaly + thick neck Respiratory: Auscultation: + diminished lung sounds (But clear) Cardiovascular: Rate/Rhythm: regular rate and regular rhythm Heart Sounds: normal S1 and normal S2; no gallop and no murmur Palpation: normal PMI Vessels: normal carotid upstroke and radial pulses present; no JVD and no carotid bruit Extremities: + edema (2+) Chest (Breasts): Chest: + pacemaker (Intact incision over pacemaker) Gastrointestinal (Abdomen): normal bowel sounds, soft, nontender, no hepatosplenomegaly Musculoskeletal: no cyanosis or clubbing, extremities motor strength 5/5 Skin: no rashes, warm and dry Neurologic: PERRL, EOMI, accommodation nl, no face palsy, no dysarthria Psychiatric: A+Ox3, euthymic affect Results & Data Vital Signs (Past 12 Hours) Vital Signs Temp Pulse Resp BP Pulse Ox 09/12/19 13:00 37 C 78 18 148/92 H 96 09/12/19 12:45 84 16 162/76 H 98 09/12/19 12:30 83 16 164/77 H 98 09/12/19 10:30 74 18 172/82 H 95 09/12/19 07:36 36.8 C 71 19 151/76 H 94 Laboratory Results Laboratory Results - last 24 hr 09/11/19 09/11/19 09/12/19 16:33 20:25 07:00 WBC 6.79 RBC 3.79 L Hgb 8.9 L Hct 30.8 L MCV 81.3 MCH 23.5 L MCHC 28.9 L RDW Std Deviation 57.2 H RDW Coeff of Scottie 19.6 H Plt Count 305 MPV 8.5 Immature Gran % (Auto) 0.3 Neut % (Auto) 75.1 Lymph % (Auto) 11.2 [place] % (Auto) 9.9 Eos % (Auto) 2.9 Baso % (Auto) 0.6 Immature Gran # (Auto) 0.02 Neut # (Auto) 5.10 Lymph # (Auto) 0.76 L [place] # (Auto) 0.67 H Eos # (Auto) 0.20 Baso # (Auto) 0.04 Sodium Potassium Chloride Carbon Dioxide Anion Gap BUN Creatinine Est Cr Clr Drug Dosing Est GFR ( Amer) Est GFR (Non-Af Amer) BUN/Creatinine Ratio Glucose POC Glucose 111 H 128 H Calcium Magnesium 09/12/19 09/12/19 07:00 07:28 WBC RBC Hgb Hct MCV MCH MCHC RDW Std Deviation RDW Coeff of Scottie Plt Count MPV Immature Gran % (Auto) Neut % (Auto) Lymph % (Auto) [place] % (Auto) Eos % (Auto) Baso % (Auto) Immature Gran # (Auto) Neut # (Auto) Lymph # (Auto) [place] # (Auto) Eos # (Auto) Baso # (Auto) Sodium 140 Potassium 4.1 Chloride 108 H Carbon Dioxide 25 Anion Gap 8.0 BUN 42 H Creatinine 4.43 H D Est Cr Clr Drug Dosing 21.4 Est GFR ( Amer) 14.3 Est GFR (Non-Af Amer) 12.4 BUN/Creatinine Ratio 9.4 L Glucose 86 POC Glucose 100 H Calcium 8.9 Magnesium 2.1
--- NOTE | 2019-09-12 15:40 | Hospitalist Progress Note ---
Date of Service September 12, 2019 Assessment & Plan (1) Tachy-oscar syndrome: History of paroxysmal/a flutter, With tachybradycardia syndrome Outpatient ZIO patch demonstrated sinus pause-for approximately 7 seconds Status post permanent pacemaker placement today, Appreciate input from cardiology, amiodarone will be resumed History of paroxysmal A. fib/a flutter Status post pacemaker placement, amiodarone will be resumed by cardiology Patient is not on anticoagulation: Secondary to history of bladder cancer persistent hematuria, increased bleeding risk History of bladder cancer: Develops intermittent hematuria, anticoagulation contraindicated Adrenal insufficiency Continue outpatient steroid CKD stage IV Monitor renal function while in hospital avoid NSAIDs contrast studies Chronic CHF with diastolic dysfunction (HFpEF) Continue Zaroxolyn Type 2 diabetes-on insulin treatment at home Insulin sliding scale /continue basal Lantus Blood sugar monitoring before meals and at bedtime CODE STATUS: Full code Prophylaxis SCD and teds Disposition: Possible discharge home tomorrow after pacemaker site check by cardiology Admission and Anticipated Discharge Date Admission Date: September 09, 2019 Anticipated date of discharge: 09/13/19 Subjective Patient had a pacemaker placed earlier today, Seen post procedure, sitting up in chair, denies of any discomfort, does not have any pain or soreness at the pacemaker site, Requesting for arm sling No complaint of dizzy spell lightheadedness, no shortness of breath, no chest pressure, no fever chills Review of Systems Review of Systems: All systems reviewed & are unremarkable except as noted in HPI & below Constitutional: no fever and no chills Cardiovascular: no chest pain, no dyspnea, no palpitations, no lightheadedness and no syncope Physical Exam Constitutional: WD/WN, vitals as above no acute distress Eyes: PERRL, conjunctivae normal, anicteric sclerae ENMT: external ear and nose normal, oropharynx normal Neck: trachea midline, no thyromegaly Respiratory: normal respiratory effort, lungs clear to auscultation Cardiovascular: RRR, no murmur, no edema Rate/Rhythm: regular rate and regular rhythm Extremities: + pedal edema (+2 bilateral pitting edema) Gastrointestinal (Abdomen): normal bowel sounds, soft, nontender, no hepatosplenomegaly Musculoskeletal: Head/Neck/Chest: + abnormal inspection of chest wall (Pacemaker placement site left upper chest wall noted:, bandage present no drainage, no tenderness swelling or erythema noted) Skin: no rashes, warm and dry Neurologic: PERRL, EOMI, accommodation nl, no face palsy, no dysarthria Psychiatric: A+Ox3, euthymic affect Results & [facility] ([facility]) Vital Signs (Past 12 Hours) Vital Signs Temp Pulse Resp BP Pulse Ox 09/12/19 13:00 37 C 78 18 148/92 H 96 09/12/19 12:45 84 16 162/76 H 98 09/12/19 12:30 83 16 164/77 H 98 09/12/19 10:30 74 18 172/82 H 95 09/12/19 07:36 36.8 C 71 19 151/76 H 94
[2019-09-12] MEDS ORDERED: OR MISCELLANEOUS MED ONE (17:03)
[2019-09-12] MEDS: AMIODARONE 200 MG TAB PO SCH (17:30)
--- NOTE | 2019-09-12 17:34 | Nephrology Consultation ---
Date of Consultation September 12, 2019 Assessment & Plan (1) Acute on chronic renal failure: Unclear whether he is having acute on chronic renal insufficiency or progression of his severe chronic kidney disease. Hopefully with elimination of cardiac pauses, renal perfusion will improve and creatinine will as well however given the history of metastatic melanoma, renal lesions, bladder melanoma, as well as frequent acute kidney injury including earlier this month, the differential here is broad. Includes ischemic ATN, prerenal acute renal failure, obstructive uropathy; infiltrative process also possible. Prior baseline creatinine had been low to mid twos, as recently as mid July. However he has in the interval had acute renal failure and unclear what extent recovery occurred. Tang creatinine on our records is 2.8. His chemistries are acceptable. His volume status consistent with mild volume overload. No further diuretics ordered at this time. Recommend diuretics as needed No acute indication for dialysis; dialysis was not discussed with this patient. 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 PMH also includes adrenal insufficiency on florinef, PAF, DM II, CKD 4 with baseline creatinine in the low twos and frequent HECTOR. He follows w/Dr Cuevas in CKD clinic, last seen last month. Urology has no further therapies to offer; oncology continues to follow; pt is not a candidate for systemic therapies for melanoma however. He as at baseline renal function as recently as late last month. However creatinine began to climb w/ recent influenza admission w/ presenting value 3.2 on 08/25 and range 2.8-3.1, down to 2.8 on 08/29 d/c. On presentation here on 09/09, creatinine was 3.3, trending up to 4.4 today. Voids not measured today; he is on room air. Patient tells me he has been having gross hematuria intermittently. Denies sense of incomplete void. He does endorse polyuria and states it is almost inconceivable he would have oliguria. He tells me that ever since the surgery last fall, he has to sit down to void. Endorses lateral lower extremity edema which he feels is somewhat improved after a dose of torsemide 20 mg this morning. Patient feels that the procedure went well today. He had a full supper and denies any loss of appetite. Allergies Allergy/AdvReac Type Severity Reaction Status Date / Time perflutren AdvReac Intermediate GI SYMPTOMS Verified 08/17/19 16:42 propylene glycol AdvReac Intermediate GI SYMPTOMS Verified 08/17/19 16:42 simvastatin AdvReac Intermediate JOINT AND Verified 08/17/19 16:42 MUSCLE PAIN Home Medications Home Medications Medication Instructions Recorded Confirmed Type cholecalciferol (vitamin D3) 1,000 unit PO QAM 04/20/18 09/09/19 History [Vitamin D3] docusate sodium [Colace] 100 mg PO AMHS 04/20/18 09/09/19 History pramipexole 0.5 mg tablet 0.5 mg PO BID 06/01/18 09/09/19 History ondansetron HCl 4 mg tablet 4 mg PO Q8H PRN tab 08/10/18 09/09/19 History acetaminophen [Tylenol Extra 500 mg PO Q6H PRN 05/22/19 09/09/19 History Strength] methylprednisolone sodium succ 125 mg IM DIRECTED PRN 05/22/19 09/09/19 History triamcinolone acetonide 1 applic TOPICAL BID PRN 05/22/19 09/09/19 History Lantus Solostar U-100 Insulin 30 unit SC BID 07/02/19 09/09/19 History fludrocortisone 0.1 mg PO QAM 07/02/19 09/09/19 History hydrocortisone 10 mg PO DAILY@1200,1500 07/02/19 09/09/19 History hydrocortisone 20 mg PO DAILY@0500 07/02/19 09/09/19 History lorazepam 1 mg PO HS 07/02/19 09/09/19 History gabapentin 100 mg PO TID 07/29/19 09/09/19 History lorazepam 1 mg PO DAILY PRN 07/29/19 09/09/19 History amiodarone 200 mg PO QAM 08/17/19 09/09/19 History torsemide 20 mg PO QAM 08/17/19 09/09/19 History amlodipine [Norvasc] 10 mg PO QAM 08/25/19 09/09/19 History calcitriol 0.5 mcg PO DAILY 09/09/19 09/09/19 History Patient History Medical History Adrenal insufficiency S/P LEFT ADRENALECTOMY- ON CHRONIC HYDROCORTISONE Anxiety (Chronic) Cardiomyopathy (Chronic) Chronic kidney disease, stage 4 (severe) Degenerative disc disease (Chronic) Dyslipidemia (Chronic) H/O transfusion of packed red blood cells S/P 2 UNITS (2016) History of immunotherapy (Chronic) Keytruda x 2 Cycles (had to stop after 2nd cycle) Current Opdivo q 2 weeks (currently on hold) - started 05/2017 - 04/2018 Hypertension Metastatic malignant melanoma Morbid obesity (Chronic) Sleep apnea CPAP HS Surgical History History of colonoscopy 2017 History of esophagogastroduodenoscopy (EGD) 2017 History of tooth extraction Hx of 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 Mother Colon cancer, Onset Age: 85 Chemo and Resection - Alive and well now Sister Breast cancer, Onset Age: 55 Had Radiation - Alive and well now Sister No problems noted. Sister No problems noted. Sister No problems noted. Sister No problems noted. Brother No problems noted. Son No problems noted. Son No problems noted. Social History Preferred Language: Romanian Communication Ability: Effective Visual Impairment: Limited Hearing Ability: Hard of Hearing Med Surg Nurse Required: No Beliefs That Will Affect Care: None marital status: Single Current Living Situation: Family current occupational status: retired current occupation: Retired - [employer] Other Information That Helps Us Care for You: No Feels Safe at Home: Yes Safety Concerns: Feels Safe At This Time Smoking Status: Unknown if ever smoked Hx Alcohol Use: No Hx Substance Use: No caffeine: Yes (2 cups of coffee/day ) during the past year weight has: remained stable Review of Systems Review of Systems: All systems reviewed & are unremarkable except as noted in HPI & below Respiratory: + dyspnea on exertion (Mild); no cough and no dyspnea Physical Exam Constitutional: well developed, + morbidly obese and cooperative; no acute distress Sitting up in a chair on room air Eyes: EOM intact bilaterally ENMT: Ears: no external ear abnormality Nose: no external nose abnormality Mouth: + dry oral mucous membranes Neck: no nuchal rigidity Respiratory: normal respiratory effort, + labored breathing, able to speak in complete sentences (But has to take a breath between sentences) and + paradoxical thoraco-abdominal movement; no respiratory distress and expiratory phase not prolonged Auscultation: + diminished lung sounds Cardiovascular: Rate/Rhythm: regular rate and regular rhythm Extremities: + edema (3+ bilateral pedal edema and 2+ pretibial, indurated) Gastrointestinal (Abdomen): Inspection/Auscultation: normal bowel sounds Percussion/Palpation: abdomen soft; abdomen nontender Musculoskeletal: Extremities: strength 5/5 throughout Skin: no rashes, warm and dry [place]dish chronic venous stasis changes bilateral anterior lower extremities Neurologic: comer, fluent speech, no tremor Psychiatric: A+Ox3, euthymic affect Genitourinary: No Bang Results & Data Vital Signs (Past 12 Hours) Vital Signs Temp Pulse Resp BP BP Pulse Ox 09/12/19 13:00 37 C 78 18 148/92 H 96 09/12/19 12:45 84 16 162/76 H 98 09/12/19 12:30 83 16 164/77 H 98 09/12/19 10:30 74 18 172/82 H 95 09/12/19 07:36 36.8 C 71 19 151/76 H 94 09/12/19 07:18 36.3 C L 74 19 126/67 95 Laboratory Results 09/12/19 07:00 09/12/19 07:00 Last urinalysis August 17, 2019: 1+ protein 3+ blood; no bacteria; to 10 epithelial cells per high-powered field with a specific gravity of 1008 and other indices negative Diagnostic Findings CT abdomen pelvis noncontrast May 2019 1. Hepatic steatosis 2. No evidence of bowel obstruction. No evidence of free air 3. No evidence of acute appendicitis. No evidence of acute diverticulitis 4. Multiple bilateral renal masses, likely representing a combination of cysts and hyperdense cysts. 5. Right-sided nephroureteral stent 6. Nonspecific bladder wall thickening near the right UVJ Chest x-ray September 09 No acute cardiopulmonary process but cardiomegaly noted (1) Acute on chronic renal failure Chronic kidney disease stage: stage 4 (severe)
--- NOTE | 2019-09-12 19:13 | XRay Report ---
XR chest 1V portable HISTORY: Shortness of breath. Check volume status COMPARISON: Chest 09/09/2019. FINDINGS: The heart remains mildly enlarged. Mild diffuse interstitial thickening persists. No pleura l effusions. No pneumothorax. Left-sided dual-chamber pacemaker. No new focal lung consolidations to suggest pneumonia. Surgical clips within the right axilla. IMPRESSION: Stable cardiomegaly and mild interstitial thickening. No evidence for pulmonary edema. ACT 112: Negative or not required by law. Electronically signed by: Mingo Constantino M.D. 09/12/2019 7:11 PM
[2019-09-12 19:37] LABS: BUN Creatinine Ratio 9.5 (10-20); Calcium 8.8 mg/dl (8.5-10.1); Creatinine Clr Calc Pharmacy 19.3 ml/min; Est GFR (African American) 12.6; Est GFR (Non-African American) 10.9; Potassium 4.5 mmol/L (3.5-5.1)
[2019-09-12] MEDS: CEFAZOLIN 2000MG 2,000 MG/15 ML SYR IV SCH (21:12)
[2019-09-12] MEDS: LORazepam 1 MG TAB PO SCH (21:14)
--- NOTE | 2019-09-12 21:26 | Ultrasound Report ---
RENAL ULTRASOUND CLINICAL HISTORY: HECTOR on CKD; hx of bladder tumor COMPARISON STUDY: CT of the abdomen and pelvis June 14, 2019. TECHNIQUE: Sonography of the kidneys and the urinary bladder was performed. FINDINGS: Evaluation of the kidneys is significantly compromised by suboptimal penetration. Innumerab le bilateral renal cysts are better depicted on CT of June 14, 2019. No hydronephrosis is noted. Neither ureteral jet was identified. Note is made of a mixed echogenicity mass-like abnormality withi n the bladder. This measures approximately 8.1 x 5.9 x 9.3 cm. IMPRESSION: 1. Evaluation of the kidneys significantly compromised by suboptimal penetration. No hydronephrosis. Innumerable bilateral renal lesions suggestive of autosomal dominant polycystic kidney disease. 2. Mass-like abnormality within the bladder which measures approximately 9.3 x 8.1 x 5.9 cm and is hi ghly suggestive of a neoplasm. Suspected significant increase in size since CT of June 14, 2019 a lthough a portion of this abnormality may reflect clot. ACT 112: Negative or not required by law. Electronically signed by: Cuong Rose M.D. 09/12/2019 9:24 PM
[2019-09-12 23:00] LABS: Appearance Urine Cloudy (Clear); Bilirubin Urine Negative (Negative); Blood Urine 3+ (Negative); Color Urine Red; Glucose Urine UA Negative (Negative); Ketones Urine Negative (Negative); Leukocyte Esterase Urine Trace (Negative); Nitrite Urine Negative (Negative); Protein Urine 2+ (Negative); Urobilinogen Urine Negative (Negative); pH Urine 6.5 (4.5-7.5)
[2019-09-12 23:04] LABS: Bacteria Urine Negative (Negative); Epithelial Cell Urine 0-5 /lpf (0-5); RBC Urine >30 /hpf (0-4)
[2019-09-13] MEDS: NITROGLYCERIN 2% OINTMENT 30GM TUBE EXT SCH ×4 (00:19→17:57)
[2019-09-13] MEDS: CEFAZOLIN 2000MG 2,000 MG/15 ML SYR IV SCH ×2 (03:37→12:36)
[2019-09-13] MEDS: HYDROCORTISONE 10 MG TAB PO SCH ×3 (05:32→14:55)
[2019-09-13 07:02] LABS: BUN Creatinine Ratio 9.4 (10-20); Calcium 8.8 mg/dl (8.5-10.1); Creatinine Clr Calc Pharmacy 18.7 ml/min; Est GFR (African American) 12.2; Est GFR (Non-African American) 10.5; Potassium 4.3 mmol/L (3.5-5.1)
--- NOTE | 2019-09-13 07:16 | XRay Report ---
XR chest 2V PA/lateral HISTORY: Status post pacemaker insertion. EXACT TIME ORDERED Evaluate for pneumothorax and l COMPARISON: Chest 09/12/2019. FINDINGS: No pneumothorax. Trace bilateral pleural effusions. There is mild central pulmonary vascula r congestion without overt edema. The heart remains mildly enlarged. There is a left-sided dual-chamb er pacemaker. The leads are intact. No new focal lung consolidations to suggest pneumonia. IMPRESSION: 1. Left-sided dual-chamber pacemaker. The leads appear intact. 2. No pneumothorax. 2. Mild central pulmonary vascular congestion without overt edema and trace bilateral pleural effusio ns. ACT 112: Negative or not required by law. Electronically signed by: Mingo Constantino M.D. 09/13/2019 7:14 AM
[2019-09-13] MEDS: CALCITRIOL 0.25 MCG CAPSULE PO SCH (08:01)
[2019-09-13] MEDS: GABAPENTIN 100 MG CAP PO SCH ×3 (08:02→21:34)
[2019-09-13] MEDS: AMLODIPINE BESYLATE 5 MG TAB PO SCH (08:02)
[2019-09-13] MEDS: CHOLECALCIFEROL 1,000 UNITS 25 MCG TAB PO SCH (08:02)
[2019-09-13] MEDS: PRAMIPEXOLE DIHYDROCHLO 0.5 MG TAB PO SCH ×2 (08:03→21:34)
[2019-09-13] MEDS: AMIODARONE 200 MG TAB PO SCH (08:03)
[2019-09-13] MEDS: DOCUSATE SODIUM 100 MG CAP PO SCH ×2 (08:03→21:33)
[2019-09-13] MEDS: FLUDROCORTISONE ACETATE 0.1 MG TAB PO SCH (08:04)
[2019-09-13] MEDS: INSULIN ASPART 100 UNITS/ML 3 ML PEN SC SCH ×4 (08:05→21:36)
[2019-09-13] MEDS: INSULIN GLARGINE SOLOSTAR 100 UNITS/ML 3 ML PEN SC SCH ×2 (08:05→21:33)
--- NOTE | 2019-09-13 09:06 | Cardiology Progress Note ---
Date of Service September 13, 2019 Assessment & Plan (1) Tachy-oscar syndrome: He underwent successful implantation of dual-chamber permanent pacemaker yesterday. No evident complication. From a device standpoint he would be stable for discharge today. He should refrain from lifting left arm above the shoulder behind the neck for 6 weeks. I would recommend keeping the wound dry and Steri-Strips intact distally has an opportunity for follow-up in the outpatient setting. (2) Paroxysmal atrial fibrillation: Currently in sinus rhythm. Not on anticoagulation due to history of hematuria. (3) Left bundle branch block: Chronic. Subjective This morning patient is feeling well. He denied significant discomfort at the device implant site. Review of Systems Review of Systems: Per HPI Physical Exam Physical Exam: Evaluation the implant site reveals an intact Steri-Strips. No active bleeding. No erythema or hematoma. Results & Data Vital Signs (Past 12 Hours) Vital Signs Temp Pulse Resp BP Pulse Ox 09/13/19 07:42 36.4 C L 74 22 138/69 94 09/13/19 04:14 36.5 C 80 19 166/68 H 94 09/13/19 00:11 36.4 C L 76 20 114/66 95 Laboratory Results Abnormal Lab Results 09/12/19 09/12/19 09/12/19 16:31 18:37 20:21 Hgb Sodium 137 Potassium 4.5 Chloride 105 Carbon Dioxide 25 Anion Gap 7.0 BUN 46 H Creatinine 4.92 H* D Est Cr Clr Drug Dosing 19.3 Est GFR ( Amer) 12.6 Est GFR (Non-Af Amer) 10.9 BUN/Creatinine Ratio 9.5 L Glucose 105 H POC Glucose 93 94 Calcium 8.8 Urine Color Urine Appearance Urine pH Ur Specific Crucible Urine Protein Urine Glucose (UA) Urine Ketones Urine Blood Urine Nitrite Urine Bilirubin Urine Urobilinogen Ur Leukocyte Esterase Urine RBC Urine WBC Ur Epithelial Cells Urine Bacteria 09/12/19 09/13/19 09/13/19 22:30 05:46 05:46 Hgb 8.8 L Sodium 138 Potassium 4.3 Chloride 103 Carbon Dioxide 27 Anion Gap 8.0 BUN 48 H Creatinine 5.07 H* Est Cr Clr Drug Dosing 18.7 Est GFR ( Amer) 12.2 Est GFR (Non-Af Amer) 10.5 BUN/Creatinine Ratio 9.4 L Glucose 87 POC Glucose Calcium 8.8 Urine Color Red Urine Appearance Cloudy A Urine pH 6.5 Ur Specific Crucible 1.020 Urine Protein 2+ H Urine Glucose (UA) Negative Urine Ketones Negative Urine Blood 3+ H Urine Nitrite Negative Urine Bilirubin Negative Urine Urobilinogen Negative Ur Leukocyte Esterase Trace H Urine RBC >30 H Urine WBC 10-30 H Ur Epithelial Cells 0-5 Urine Bacteria Negative 09/13/19 07:31 Hgb Sodium Potassium Chloride Carbon Dioxide Anion Gap BUN Creatinine Est Cr Clr Drug Dosing Est GFR ( Amer) Est GFR (Non-Af Amer) BUN/Creatinine Ratio Glucose POC Glucose 97 Calcium Urine Color Urine Appearance Urine pH Ur Specific Crucible Urine Protein Urine Glucose (UA) Urine Ketones Urine Blood Urine Nitrite Urine Bilirubin Urine Urobilinogen Ur Leukocyte Esterase Urine RBC Urine WBC Ur Epithelial Cells Urine Bacteria Diagnostic Findings Chest x-ray demonstrated good lead position without evidence of pneumothorax Perform complete device interrogation which revealed good sensing threshold parameters on both atrial and ventricular leads. Normal device function.
--- NOTE | 2019-09-13 15:24 | Cardiology Progress Note ---
Date of Service September 13, 2019 Assessment & Plan (1) Tachy-oscar syndrome: Patient with history of paroxysmal atrial fibrillation/flutter with poor tolerance of ventricular response rates. Patient has had successful control of rhythm predominantly with amiodarone therapy but has resulted in significant bradycardia arrhythmias observed on outpatient monitoring. Maintain telemetry patient resumed on amiodarone post pacemaker Patient status post dual-chamber pacemaker insertion and stable from cardiac standpoint however renal function has declined Appreciate nephrology input (2) Sleep apnea: Patient will need more consistent use (3) Paroxysmal atrial fibrillation: Plan resume amiodarone after pacemaker insertion Subjective Patient seen and examined, chart, medications, telemetry reviewed. No acute complaints. Mild tenderness at the surgical incision but otherwise doing well. No dizziness or lightheadedness. No tachyarrhythmias. No further arrhythmias on telemetry Pacemaker functioning appropriately Physical Exam Constitutional: WD/WN, vitals as above + obese Eyes: PERRL, conjunctivae normal, anicteric sclerae ENMT: external ear and nose normal, oropharynx normal Neck: trachea midline, no thyromegaly + thick neck Respiratory: Auscultation: + diminished lung sounds (But clear) Cardiovascular: Rate/Rhythm: regular rate and regular rhythm Heart Sounds: normal S1 and normal S2; no gallop and no murmur Palpation: normal PMI Vessels: normal carotid upstroke and radial pulses present; no JVD and no carotid bruit Extremities: + edema (2+) Chest (Breasts): Chest: + pacemaker (Intact incision over pacemaker) Gastrointestinal (Abdomen): normal bowel sounds, soft, nontender, no hepatosplenomegaly Musculoskeletal: no cyanosis or clubbing, extremities motor strength 5/5 Skin: no rashes, warm and dry Neurologic: PERRL, EOMI, accommodation nl, no face palsy, no dysarthria Psychiatric: A+Ox3, euthymic affect Results & Data Vital Signs (Past 12 Hours) Vital Signs Temp Pulse Resp BP Pulse Ox 09/13/19 11:17 36.7 C 72 18 166/68 H 94 09/13/19 07:42 36.4 C L 74 22 138/69 94 09/13/19 04:14 36.5 C 80 19 166/68 H 94
--- NOTE | 2019-09-13 15:54 | Hospitalist Progress Note ---
Date of Service September 13, 2019 Assessment & Plan (1) Tachy-oscar syndrome: History of paroxysmal/a flutter, With tachybradycardia syndrome Outpatient ZIO patch demonstrated sinus pause-for approximately 7 seconds Status post permanent pacemaker placement Appreciate input from cardiology, amiodarone will be resumed History of paroxysmal A. fib/a flutter Status post pacemaker placement, amiodarone will be resumed by cardiology Patient is not on anticoagulation: Secondary to history of bladder cancer persistent hematuria, increased bleeding risk History of bladder cancer: Develops intermittent hematuria, anticoagulation contraindicated Adrenal insufficiency Continue outpatient steroid CKD stage IV Acute renal failure/ possible ATN Creatinine worsened to 5.1 today Nephrology consulted Chronic CHF with diastolic dysfunction (HFpEF) Hold Zaroxolyn acute renal failure Type 2 diabetes-on insulin treatment at home Insulin sliding scale /continue basal Lantus Blood sugar monitoring before meals and at bedtime CODE STATUS: Full code Prophylaxis SCD and teds Disposition: Admission and Anticipated Discharge Date Admission Date: September 09, 2019 Anticipated date of discharge: 09/13/19 Subjective pt sitting up on chair denies of any discomfort ,no complain of SOB , no pain or discomfort at pacemaker site surprised to know that his kidney functions has worsen , as feels fine no nausea or vomiting appetite fair no complain of fatigue or weakness Review of Systems Review of Systems: All systems reviewed & are unremarkable except as noted in HPI & below Constitutional: no fever, no chills, no fatigue, no malaise and no anorexia Cardiovascular: no chest pain, no dyspnea, no orthopnea, no palpitations and no lightheadedness Gastrointestinal: no abdominal pain, no bloating, no nausea and no vomiting Physical Exam Constitutional: WD/WN, vitals as above no acute distress Eyes: PERRL, conjunctivae normal, anicteric sclerae ENMT: external ear and nose normal, oropharynx normal Neck: trachea midline, no thyromegaly Respiratory: normal respiratory effort, lungs clear to auscultation Cardiovascular: RRR, no murmur, no edema Rate/Rhythm: regular rate and regular rhythm Extremities: + pedal edema (+2 bilateral pitting edema) Gastrointestinal (Abdomen): normal bowel sounds, soft, nontender, no hepatosplenomegaly Musculoskeletal: no cyanosis or clubbing, extremities motor strength 5/5 Head/Neck/Chest: + abnormal inspection of chest wall (Pacemaker placement site left upper chest wall noted:, bandage present no drainage, no tenderness swelling or erythema noted) Skin: no rashes, warm and dry Neurologic: PERRL, EOMI, accommodation nl, no face palsy, no dysarthria Psychiatric: A+Ox3, euthymic affect Results & Data ([facility]) Vital Signs (Past 12 Hours) Vital Signs Temp Pulse Resp BP Pulse Ox 09/13/19 15:38 36.3 C L 75 18 135/67 96 09/13/19 11:17 36.7 C 72 18 166/68 H 94 09/13/19 07:42 36.4 C L 74 22 138/69 94 09/13/19 04:14 36.5 C 80 19 166/68 H 94
--- NOTE | 2019-09-13 20:19 | Nephrology Progress Note ---
Date of Service September 13, 2019 Assessment & Plan (1) Acute on chronic renal failure: Unclear whether he is having acute on chronic renal insufficiency or progression of his severe chronic kidney disease. Hopefully with elimination of cardiac pauses, renal perfusion will improve and creatinine will as well however given the history of metastatic melanoma including in bladder, small bowel, sigmoid colon; renal lesions, as well as frequent acute kidney injury including earlier this month, the differential here is broad. Includes ischemic ATN, prerenal acute renal failure, obstructive uropathy; infiltrative process also possible. Prior baseline creatinine had been low to mid twos, as recently as mid July. H owever creatinine began to climb w/ early Aug influenza admission w/ presenting value 3.2 on 08/25 and range 2.8-3.1, down to 2.8 on 08/29 d/c, olivia value this month. On presentation here on 09/09, creatinine was 3.3, trending up ever since. His chemistries are acceptable. His volume status consistent with mild volume overload. No further diuretics ordered at this ti me. 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 -poor dialysis candidate given metastatic CA; introduced these ideas to him today; no final dispo from discussion patient; I did NOT offer dialysis but rather shared why dialysis for him may worsen quality of life and may or may not prolong life; pt comment >> "so what's the upshot? I go home and do nothing." expressed his admiration for Dr Moore whom he saw earlier in Aug and who at least did not rule out further bladder tumor resection per pt if CA recurs -recommend palliative care consultation b/c sooner or later believe he will have obstruction or other end stage challenges related to increasing CA burden -consider phone or other conversation w/ Dr Moore [facility] urology -- are further surgical interventions offered here or not? Present on Admission?: Yes Admission and Anticipated Discharge Date Admission Date: September 09, 2019 Anticipated date of discharge: 09/13/19 Subjective pt seen and evaluated on rounds at about 1015 this am; no overnight events. denies sob, denies uncontrolled pain; feels he's recovering well from pacer procedure. creatinine worse today> up to 5.1 from 3.9 yesterday. no n/v; + gross hematuria Review of Systems Review of Systems: All systems reviewed & are unremarkable except as noted in HPI & below Physical Exam Constitutional: well developed, + morbidly obese and cooperative; no acute distress (sitting up in chair on ra) Eyes: EOM intact bilaterally ENMT: Ears: no external ear abnormality Nose: no external nose abnormality Mouth: + dry oral mucous membranes Neck: no nuchal rigidity Respiratory: normal respiratory effort, + labored breathing (very slight), able to speak in complete sentences (But has to take a breath between sentences) and + paradoxical thoraco-abdominal movement; no respiratory distress and expiratory phase not prolonged Auscultation: + diminished lung sounds Cardiovascular: Rate/Rhythm: regular rate and regular rhythm Extremities: + edema (3+ bilateral pedal edema and 1-2+ pretibial, indurated) Gastrointestinal (Abdomen): Inspection/Auscultation: normal bowel sounds Percussion/Palpation: abdomen soft; abdomen nontender Musculoskeletal: Extremities: strength 5/5 throughout Skin: no rashes, warm and dry pacer incision c/d/i Neurologic: comer, fluent speech, not remor Psychiatric: A+Ox3, euthymic affect Results & Data ([facility]) Vital Signs (Past 12 Hours) Vital Signs Temp Pulse Resp BP Pulse Ox 09/13/19 15:38 36.3 C L 75 18 135/67 96 09/13/19 11:17 36.7 C 72 18 166/68 H 94 Laboratory Results 09/13/19 05:46 09/13/19 05:46 Diagnostic Findings renal u/s 1. Evaluation of the kidneys significantly compromised by suboptimal penetration. No hydronephrosis. Innumerable bilateral renal lesions suggestive of autosomal dominant polycystic kidney disease. 2. Mass-like abnormality within the bladder which measures approximately 9.3 x 8.1 x 5.9 cm and is highly suggestive of a neoplasm. Suspected significant increase in size since CT of June 14, 2019 although a portion of this abnormality may reflect clot. cxr 1. Left-sided dual-chamber pacemaker. The leads appear intact. 2. No pneumothorax. 2. Mild central pulmonary vascular congestion without overt edema and trace bilateral pleural effusions. (1) Acute on chronic renal failure Chronic kidney disease stage: stage 4 (severe)
[2019-09-13] MEDS: LORazepam 1 MG TAB PO SCH (21:40)
[2019-09-14] MEDS: NITROGLYCERIN 2% OINTMENT 30GM TUBE EXT SCH ×5 (00:40→23:32)
[2019-09-14] MEDS: HYDROCORTISONE 10 MG TAB PO SCH ×3 (05:29→16:11)
[2019-09-14 06:56] LABS: BUN Creatinine Ratio 9.4 (10-20); Calcium 8.9 mg/dl (8.5-10.1); Est GFR (African American) 10.9; Est GFR (Non-African American) 9.4; Potassium 4.8 mmol/L (3.5-5.1)
[2019-09-14] MEDS: INSULIN ASPART 100 UNITS/ML 3 ML PEN SC SCH ×4 (09:27→20:38)
[2019-09-14] MEDS: INSULIN GLARGINE SOLOSTAR 100 UNITS/ML 3 ML PEN SC SCH ×2 (09:28→20:40)
[2019-09-14] MEDS: CALCITRIOL 0.25 MCG CAPSULE PO SCH (09:28)
[2019-09-14] MEDS: CHOLECALCIFEROL 1,000 UNITS 25 MCG TAB PO SCH (09:28)
[2019-09-14] MEDS: GABAPENTIN 100 MG CAP PO SCH ×3 (09:28→20:40)
[2019-09-14] MEDS: FLUDROCORTISONE ACETATE 0.1 MG TAB PO SCH (09:28)
[2019-09-14] MEDS: AMIODARONE 200 MG TAB PO SCH (09:28)
[2019-09-14] MEDS: PRAMIPEXOLE DIHYDROCHLO 0.5 MG TAB PO SCH ×2 (09:28→20:40)
[2019-09-14] MEDS: DOCUSATE SODIUM 100 MG CAP PO SCH ×2 (09:28→20:40)
[2019-09-14] MEDS: AMLODIPINE BESYLATE 5 MG TAB PO SCH (09:28)
--- NOTE | 2019-09-14 14:38 | Nephrology Progress Note ---
Date of Service September 14, 2019 Assessment & Plan (1) Acute on chronic renal failure: Unclear whether he is having acute on chronic renal insufficiency or progression of his severe chronic kidney disease. Hopefully with elimination of cardiac pauses, renal perfusion will improve (has not happened yet). given recent OP imaging, concern that this is renal progression; emerging obstructive uropathy w/ history of metastatic melanoma including in bladder, small bowel, sigmoid colon; renal lesions, as well as frequent acute kidney injury including earlier this month. not oliguric. DDX primarily obstructive uropathy versus infiltrative process versus both; could also be ischemic ATN, prerenal acute renal failure. Prior baseline creatinine had been low to mid , as recently as mid July. H owever creatinine began to climb w/ early Aug influenza admission w/ presenting value 3.2 on 08/25 and range 2.8-3.1, down to 2.8 on 08/29 d/c, olivia value this month. On presentation here on 09/09, creatinine was 3.3, trending up ever since. His chemistries are acceptable for now. His volume status consistent with mild volume overload. No further diuretics ordered at this time. Recommend diuretics as needed No acute indication for dialysis; I did discuss ESRD w/ pt today as below -no oliguria but pls cont I/O palliative /goals of care discussion as below -ordered renal diet preemptively -prn diuretics for resp distress (2) Metastatic malignant melanoma: May well have a role in renal insufficiency at very least in obstruction; ? if infiltration into renal parenchyma > (3) Tachy-oscar syndrome: (4) Goals of care, counseling/discussion: concern for HECTOR on CKD versus ESRD >> cannot rule out need for dialysis coming up swiftly, though dialysis not needed today. dialysis decision IF he is even a candidate needs to be in overall context of goals of care -poor dialysis candidate given aggressive metastatic CA; reintroduced these ideas to him today; no final dispo from discussion patient; I did NOT offer dialysis but rather shared why dialysis for him may worsen quality of life and may or may not prolong life -d/w Dr Najera >> she in turn d/w Dr Moore in [facility] [place] (urologist who saw him earlier this month) -- ? role for palliative nephrostomy tube and pt may be transferred for this; would also want clarification if other surgical options now or in future or not (jessenia regarding bladder mass); but also important here for pt to hear from [facility] [place] urology ideally and/or Dr Culp oncology about prx -recommend palliative care consultation here and after transfer b/c sooner or later believe he will have obstruction or other end stage challenges related to increasing CA burden Admission and Anticipated Discharge Date Admission Date: September 09, 2019 Anticipated date of discharge: 09/13/19 Subjective seen on rounds this am at 0945-- not sob, no voiding c/o (still gross hematuria at times); no n/v or loss of appetite; no pain at pacer pocket or elsewhere; still processing conversation from yesterday about worse kidney function Review of Systems Review of Systems: All systems reviewed & are unremarkable except as noted in HPI & below Physical Exam Constitutional: well developed, + morbidly obese and cooperative; no acute distress (sitting up in chair on ra) Eyes: EOM intact bilaterally ENMT: Ears: no external ear abnormality Nose: no external nose abnormality Mouth: + dry oral mucous membranes Neck: no nuchal rigidity Respiratory: normal respiratory effort and able to speak in complete sentences (But has to take a breath between sentences); no respiratory distress and no labored breathing (unlike yesterday) Auscultation: lungs clear to auscultation bilaterally and + diminished lung sounds Cardiovascular: Rate/Rhythm: regular rate and regular rhythm Extremities: + edema (2-3+ bilateral pedal edema and 1-2+ pretibial, indurated) Gastrointestinal (Abdomen): Inspection/Auscultation: normal bowel sounds Percussion/Palpation: abdomen soft; abdomen nontender Musculoskeletal: Extremities: strength 5/5 throughout Skin: no rashes, warm and dry Neurologic: comer, fluent speech, no tremor Psychiatric: A+Ox3, euthymic affect Genitourinary: no mejia Results & Data ([facility]) Vital Signs (Past 12 Hours) Vital Signs Temp Pulse Pulse Pulse Resp BP Pulse Ox 09/14/19 13:49 36.3 C L 79 18 143/65 H 94 09/14/19 08:00 72 09/14/19 07:50 36.7 C 76 20 131/70 95 09/14/19 04:40 36.7 C 79 19 130/72 94 Laboratory Results 09/14/19 05:50 09/14/19 05:[address] in [facility] 09/07/19 LOWER CHEST: New small right greater than left pleural effusions. New trace pericardial effusion. No suspicious lung nodules in the visualized lung. Coronary artery calcifications. ABDOMEN/PELVIS: LIVER: Unremarkable. BILE DUCTS: Unremarkable. GALLBLADDER: Cholelithiasis without evidence of cholecystitis. PANCREAS: Increasing pancreatic head/peripancreatic fullness site prior peripancreatic lymph node, seen on the March 2019 PET-CT. SPLEEN: Unremarkable. ADRENALS: Bilateral adrenalectomy. KIDNEYS/URETERS: - New mild right hydroureteronephrosis, likely due to obstruction the right bladder trigone by mass. - Polycystic kidney disease with numerous lesions with varying densities, incompletely evaluated in the absence of IV contrast. BLADDER: Enlarging irregular solid mass in the right posterior bladder, now approximately 5.7 x 4.7 x 8.2 cm from 3.1 x 4.3 x 3.3 cm in the 04/13/2019 PET- CT scan, and causing mass effect on the right trigone and associated hydronephrosis. REPRODUCTIVE ORGANS: Enlarged prostate. BOWEL: Sigmoid and left colon diverticulosis without evidence of diverticulitis. Small duodenal diverticulum is noted. LYMPH NODES: No pathologic morphology or enlargement. VESSELS: Atherosclerosis. PERITONEUM/RETROPERITONEUM: 1.3 x 2.0 x 1.6 cm nodular mass in the right adrenal bed/perihepatic, likely recurrence/metastatic disease. No free fluid or free air. ABDOMINAL WALL/SOFT TISSUES: Unremarkable. BONES: Degenerative changes of the spine. No aggressive osseous lesions. IMPRESSION 1. Marked increase in size right posterior bladder mass, with mass effect on the right trigone causing mild right hydroureteronephrosis. 2. 2.0 cm nodular mass in the right adrenal bed/perihepatic space, likely recurrence or metastatic disease. Increasing pancreatic head/peripancreatic fullness at the site of previously described peripancreatic lymph node on the prior PET-CT, possibly enlarging kristel disease or metastatic pancreatic lesion. 3. Polycystic kidney disease with numerous lesions with varying densities, incompletely evaluated absence of IV contrast. 4. New small right greater than left bilateral pleural effusions. New trace pericardial effusion. (1) Acute on chronic renal failure Chronic kidney disease stage: stage 4 (severe)
--- NOTE | 2019-09-14 16:27 | Discharge Summary ---
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 Recent bladder [place] on 04/[address] [facility] history of paroxysmal atrial fibrillation, not on anticoagulation secondary to hematuria, type 2 diabetes, adrenal insufficiency on hydrocortisone and fludrocortisone, chronic kidney disease stage 3, baseline creatinine around 2.2-2.5, obesity, anemia, obstructive sleep apnea on CPAP, history of ESBL UTI, anxiety disorder, restless leg syndrome, polycystic kidney disease, who lives with his , who ambulates sometimes with a cane, who was recently admitted to the hospital on 08/26/2019 with a flu at that time and did fine and got discharged on and he was also at that time was on Zio patch to check for tachybrady syndrome, he had 14 days of Zio patch and it was taken out, and he mailed it on 09/06/2019 and today at around 0330pm he was called and told that he has several pauses and the longest pause of 7 seconds and he need to go to the ER that is the reason he came to the hospital. Denies any symptoms. Denies any dizziness, no headache, no blurred vision, no earache, no runny nose, no sore throat, no difficulty swallowing, no chest pain or shortness of breath. Ambulating okay. No cough, no fever, no chills, no nausea, no vomiting, no abdominal pain, no diarrhea, no constipation, no black stools or bloody stools. No hematuria. Has chronic lower extremity edema. Currently resting comfortably and hemodynamically stable. Admission Exam Per Admitting Provider PHYSICAL EXAMINATION: GENERAL: The patient is obese, not in acute distress. VITAL SIGNS: Temperature 36.3, pulse 76, respiratory rate 18, blood pressure 212/74, oxygen 96% room air. HEENT: No pallor, no icterus. Pupils equal, round, reactive to light. NECK: No JVD, no neck masses, no carotid bruits. CARDIOVASCULAR: S1, S2 heard, regular rate and rhythm, no murmur, no gallop. RESPIRATORY SYSTEM: Normal AP diameter. No accessory muscle use. No wheezing, no crackles. ABDOMEN: Soft, bowel sounds present, nontender. No distention. CENTRAL NERVOUS SYSTEM: Cranial nerves II-XII are grossly intact. Nonfocal. EXTREMITIES: Gross pedal edema present. Mild erythema. 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 MUSCULOSKELETAL: strength 5/5 throughout, head is normocephalic and atraumatic SKIN: warm and dry NEUROLOGIC: CN 2-12 grossly intact, no sensory deficit, normal cognition, normal speech, no gross focal deficits. PSYCHIATRIC: alert cooperative and oriented to person, place and time. Discharge Data Allergies Allergy/AdvReac Type Severity Reaction Status Date / Time perflutren AdvReac Intermediate GI SYMPTOMS Verified 08/17/19 16:42 propylene glycol AdvReac Intermediate GI SYMPTOMS Verified 08/17/19 16:42 simvastatin AdvReac Intermediate JOINT AND Verified 08/17/19 16:42 MUSCLE PAIN Consultations 09/09/19 19:54 ED Decision to Admit Stat 09/09/19 22:54 Consult Case Management - Discharge Planning Routine 09/10/19 08:00 Consult Cardiology Routine 09/11/19 11:27 Consult Cardiology Routine 09/12/19 15:43 Consult Nephrology Routine 09/13/19 08:00 Consult Urology Routine 09/14/19 16:17 Burn CD for patient Stat Procedures Performed Operation Date: 09/12/19 11:00 Actual Procedures p Pacer with A/V Leads (Dual) - Sergio Lafleur MD Ordered Studies 09/12/19 07:00 EP Lab Images for PACS ONCE 09/12/19 11:29 CL Cath Imgs for PACS use only Routine 09/12/19 17:54 US renal/blad retro comp Urgent Hospital Course (1) Tachy-oscar syndrome: (2) Acute on chronic renal failure: (3) Metastatic malignant melanoma: (4) Bladder mass: (5) Gross hematuria: (6) Paroxysmal atrial fibrillation: 74-year-old man with known history of metastatic melanoma and history of b ladder mass secondary to this status post resection in April with intermittent gross hematuria presented for pacemaker placement related to his tachycardia- bradycardia syndrome. This is after the results of a an outpatient event monitor revealed a 7-second pause prompting ER referral. The patient was asymptomatic and admitted to the hospitalist service and Cardiology was consulted. Although amiodarone had predominantly controlled his rhythm with a history of paroxysmal atrial fibrillation/flutter, significant bradycardia had been observed. Amiodarone was temporarily placed on hold in a pacemaker was inserted on 09/12. He recovered well, and amiodarone was restarted, however daily labs revealed continued elevation of creatinine indicating worsening renal function. Torsemide was continued despite this. Nephrology was consulted and noted no acute indication for dialysis. A palliative care consult was recommended to define goals of care better but was not able to be performed at [facility]. This was recommended at the receiving facility. Record review revealed a CT abdomen pelvis performed at [facility] on 09/07. This revealed evidence that his bladder mass had doubled. There was also mild hydronephrosis and may have been some mass-effect causing some obstructive uropathy contributing to his current renal failure status. Gross hematuria was present during this hospitalization and has been intermittent in recent weeks historically. I discussed this case with Dr. Moore, Urologist at [facility], who agreed to consider unilateral nephrostomy tube if indicated on evaluation. Therefore, the patient was transferred to [facility] for further work-up and treatment as this procedure is unable to be performed at this facility. He continues to search for additional treatments and life-prolonging therapies. Current Inpatient Medications Acetaminophen (Tylenol) 650 mg PO Q4H PRN PRN Reason: Pain or Fever Stop: 10/09/19 22:53 Amiodarone HCl (Cordarone) 200 mg PO QAM [facility] Stop: 10/12/19 15:44 Last Admin: 09/14/19 09:28 Dose: 200 mg Documented by: Amlodipine Besylate (Norvasc) 10 mg PO QAM [facility] Stop: 10/10/19 08:59 Last Admin: 09/14/19 09:28 Dose: 10 mg Documented by: Calcitriol (Rocaltrol) 0.5 mcg PO DAILY [facility] Stop: 10/10/19 08:59 Last Admin: 09/14/19 09:28 Dose: 0.5 mcg Documented by: Dextrose (Dextrose 50%) 25 - 50 ml IV UD PRN; Protocol PRN Reason: Hypoglycemia Protocol Stop: 10/09/19 23:14 Docusate Sodium (Colace) 100 mg PO AMHS [facility] Stop: 10/10/19 08:59 Last Admin: 09/14/19 09:28 Dose: 100 mg Documented by: Fludrocortisone Acetate (Florinef) 0.1 mg PO QAM [facility] Stop: 10/10/19 08:59 Last Admin: 09/14/19 09:28 Dose: 0.1 mg Documented by: Gabapentin (Neurontin) 100 mg PO TID [facility] Stop: 10/10/19 08:59 Last Admin: 09/14/19 14:51 Dose: 100 mg Documented by: Glucagon (Glucagen) 1 mg SQ UD PRN; Protocol PRN Reason: Hypoglycemia Protocol Stop: 10/09/19 23:14 Glucose (Glucose 40%) 15 - 30 gm PO UD PRN; Protocol PRN Reason: Hypoglycemia Protocol Stop: 10/09/19 23:14 Glucose (Dex4 Glucose) 4 - 8 tabs PO UD PRN; Protocol PRN Reason: Hypoglycemia Protocol Stop: 10/09/19 23:14 Hydrocortisone (Cortef) 10 mg PO DAILY@1200,1500 [facility] Stop: 10/10/19 11:59 Last Admin: 09/14/19 16:11 Dose: 10 mg Documented by: Hydrocortisone (Cortef) 20 mg PO DAILY@0500 [facility] Stop: 10/10/19 04:59 Last Admin: 09/14/19 05:29 Dose: 20 mg Documented by: Insulin Aspart (Novolog Flexpen) 0 units SC ACHS [facility] Stop: 10/12/19 16:59 Last Admin: 09/14/19 17:04 Dose: 3 units Documented by: Insulin Glargine (Lantus Solostar Pen) 8 units SC BID [facility] Stop: 10/12/19 08:59 Last Admin: 09/14/19 09:28 Dose: 8 units Documented by: Lorazepam (Ativan) 1 mg PO HS [facility] Stop: 10/09/19 23:14 Last Admin: 09/13/19 21:40 Dose: 1 mg Documented by: Lorazepam (Ativan) 1 mg PO DAILY PRN PRN Reason: Anxiety Stop: 10/09/19 23:06 Miscellaneous (Carbohydrates For Hypoglycemia) 15 - 30 gm PO UD PRN PRN Reason: Hypoglycemia Treatment Stop: 10/09/19 23:14 Nitroglycerin (Nitrostat) 0.4 mg SL UD PRN PRN Reason: Chest Pain Stop: 10/09/19 22:53 Nitroglycerin (Nitro-Bid 2%) 0.5 inch EXT Q6H [facility] Stop: 10/10/19 00:00 Last Admin: 09/14/19 17:26 Dose: 0.5 inch Documented by: Ondansetron HCl (Zofran) 4 mg IV Q6H PRN PRN Reason: Nausea Stop: 10/09/19 22:53 Oxycodone HCl (Roxicodone Immediate Rel) 5 mg PO Q4 PRN PRN Reason: Pain Stop: 09/26/19 12:29 Polyethylene Glycol (Miralax Powder Packet) 17 gm PO DAILY PRN PRN Reason: Constipation Stop: 10/09/19 22:53 Pramipexole Dihydrochloride (Mirapex) 0.5 mg PO BID [facility] Stop: 10/09/19 22:53 Last Admin: 09/14/19 09:28 Dose: 0.5 mg Documented by: Torsemide (Demadex) 20 mg PO QAM [facility] Stop: 10/10/19 08:59 Last Admin: 09/12/19 08:14 Dose: 20 mg Documented by: Triamcinolone Acetonide (Kenalog 0.1%) 1 appln TOP BID PRN PRN Reason: Rash Stop: 10/09/19 22:53 Vitamin D (Vitamin D3) [facility] Stop: 10/10/19 08:59 Last Admin: 09/14/19 09:28 Dose: 1,000 units Documented by: Total Time Total Time Spent Total Time Spent (In Minutes): 60 Total Time Includes: Examination of the Patient, Discharge Planning, Medication Reconciliation and Communication With Other Providers Discharge Plan Discharge Items Patient Disposition: Transfer Acute Care Hospital Reason For Visit: PAUSES ON MONITOR Discharge Diagnosis: Acute on chronic renal failure Progressed bladder tumor with possible obstructive uropathy 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 It is recommended that you follow-up with your primary care physician within one week of discharge from the hospital. Please follow all post-operative pacemaker instructions given and follow-up with Cardiology as instructed including no lifting abover your head for 6 weeks. You will need a pacemaker check in one week. It was a pleasure taking care of you! Please call if you have any questions or problems. You can reach a [facility] hospitalist on duty at [facility] 24 hours a day by calling [phone]. Take care of yourself. Rut Najera DO [facility] Hospitalist Pending Studies at Discharge: No Stand-Alone Forms: My [facility] Skilled Items Patient informed of condition?: Yes DNR: No Discharge Level of Care: Other Communicable Disease: No Discharge Prognosis: Stable Lines: Peripheral IV Urinary Catheter: No Medications and DC Order Prescriptions: Continued pramipexole [Mirapex] 0.5 mg tablet 0.5 mg PO BID RF: 0 ondansetron HCl 4 mg tablet 4 mg PO Q8H PRN (Reason: Nausea) RF: 0 docusate sodium [Colace] 100 mg Capsule 100 mg PO AMHS RF: 0 cholecalciferol (vitamin D3) [Vitamin D3] 1,000 unit Capsule 1,000 unit PO QAM RF: 0 acetaminophen [Tylenol Extra Strength] 500 mg Tablet 500 mg PO Q6H PRN (Reason: Pain) RF: 0 triamcinolone acetonide 0.1 % Cream 1 applic TOPICAL BID PRN (Reason: Rash) RF: 0 methylprednisolone sodium succ 125 mg Recon Soln 125 mg IM DIRECTED PRN (Reason: EMERGENCY CASE) RF: 0 torsemide 20 mg tablet 20 mg PO QAM RF: 0 amiodarone 200 mg tablet 200 mg PO QAM RF: 0 hydrocortisone 10 mg tablet 10 mg PO DAILY@1200,1500 RF: 0 hydrocortisone 10 mg tablet 20 mg PO DAILY@0500 RF: 0 fludrocortisone 0.1 mg tablet 0.1 mg PO QAM RF: 0 lorazepam 1 mg Tablet 1 mg PO HS RF: 0 Lantus Solostar U-100 Insulin 100 unit/mL (3 mL) insulin pen 30 unit SC BID RF: 0 lorazepam 1 mg tablet 1 mg PO DAILY PRN (Reason: Anxiety) RF: 0 gabapentin 100 mg capsule 100 mg PO TID RF: 0 amlodipine [Norvasc] 10 mg tablet 10 mg PO QAM RF: 0 calcitriol 0.5 mcg capsule 0.5 mcg PO DAILY RF: 0 Discharge Orders: Discharge Order (Routine); Ordered 09/14/19 Ordered By: Rut Brand/Allan Patient Handouts: Hypoglycemia Admission Data Admit Date/Time: 09/09/19 22:12 Attending Provider: Rut Najera Admit Provider: Eric Raygoza Primary Care Provider: Prasad Mcguire Other Providers: Eric Raygoza ; [employer] ; [facility] ; Sergio Lafleur ; Ekta Rosa ; Micha Weber ; Hemalatha Hollingsworth ; Shelia Lua ; Dereje Cuevas ; Radha Wolf
--- NOTE | 2019-09-14 17:01 | Urology Consultation ---
Date of Consultation September 14, 2019 Assessment & Plan (1) Bladder mass: large bladder mass could be clot or new tumor I offered to place catheter to try to irrigate out if it is clot he has some stenosis of the distal urethra so catheter insertion will be a bit painful He declines he will be soon transferred [place] [facility] [place] neph[place] The patient is VERY much interested in all or any life prolonging procedures. Present on Admission?: Yes History of Present Illness Reason for Consultation: bladder mass Requesting Physician: Dr Whiteside Attending Physician: Rut Najera, DO History of Present Illness I am asked by Dr whiteside to evaluate and treat patient for bladder mass. He has a years long case of metastatic melanoma and has had a few TURBTs and a adrenalectomy for debulking. He had a large tumor recurrence in bladder resected and a right stent placed for concern of right ureteral obstruction fall 2018. he has had on and off bleeding with this. Stent was removed in Jun 2019 at bedside here. His path was muscle invasive metastatic melanoma which is unresectable. New ultrasound 09/12/19 shows a large bladder mass. could be clot could be new tumor. Patient reports intermittent red bloody urine not so much like old clot. He had a pacemaker placed this admission. His renal function is rapidly deteriorating and his u/s is not suggestive of ureteral obstruction this time. Allergies Allergy/AdvReac Type Severity Reaction Status Date / Time perflutren AdvReac Intermediate GI SYMPTOMS Verified 08/17/19 16:42 propylene glycol AdvReac Intermediate GI SYMPTOMS Verified 08/17/19 16:42 simvastatin AdvReac Intermediate JOINT AND Verified 08/17/19 16:42 MUSCLE PAIN Home Medications Home Medications Medication Instructions Recorded Confirmed Type cholecalciferol (vitamin D3) 1,000 unit PO QAM 04/20/18 09/09/19 History [Vitamin D3] docusate sodium [Colace] 100 mg PO AMHS 04/20/18 09/09/19 History pramipexole 0.5 mg tablet 0.5 mg PO BID 06/01/18 09/09/19 History ondansetron HCl 4 mg tablet 4 mg PO Q8H PRN tab 08/10/18 09/09/19 History acetaminophen [Tylenol Extra 500 mg PO Q6H PRN 05/22/19 09/09/19 History Strength] methylprednisolone sodium succ 125 mg IM DIRECTED PRN 05/22/19 09/09/19 History triamcinolone acetonide 1 applic TOPICAL BID PRN 05/22/19 09/09/19 History Lantus Solostar U-100 Insulin 30 unit SC BID 07/02/19 09/09/19 History fludrocortisone 0.1 mg PO QAM 07/02/19 09/09/19 History hydrocortisone 10 mg PO DAILY@1200,1500 07/02/19 09/09/19 History hydrocortisone 20 mg PO DAILY@0500 07/02/19 09/09/19 History lorazepam 1 mg PO HS 07/02/19 09/09/19 History gabapentin 100 mg PO TID 07/29/19 09/09/19 History lorazepam 1 mg PO DAILY PRN 07/29/19 09/09/19 History amiodarone 200 mg PO QAM 08/17/19 09/09/19 History torsemide 20 mg PO QAM 08/17/19 09/09/19 History amlodipine [Norvasc] 10 mg PO QAM 08/25/19 09/09/19 History calcitriol 0.5 mcg PO DAILY 09/09/19 09/09/19 History Patient History Medical History Adrenal insufficiency S/P LEFT ADRENALECTOMY- ON CHRONIC HYDROCORTISONE Anxiety (Chronic) Cardiomyopathy (Chronic) Chronic kidney disease, stage 4 (severe) Degenerative disc disease (Chronic) Dyslipidemia (Chronic) H/O transfusion of packed red blood cells S/P 2 UNITS (2016) History of immunotherapy (Chronic) Keytruda x 2 Cycles (had to stop after 2nd cycle) Current Opdivo q 2 weeks (currently on hold) - started 05/2017 - 04/2018 Hypertension Metastatic malignant melanoma Morbid obesity (Chronic) Sleep apnea CPAP HS Surgical History History of colonoscopy 2016 History of esophagogastroduodenoscopy (EGD) 2017 History of tooth extraction Hx of 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 Mother Colon cancer, Onset Age: 85 Chemo and Resection - Alive and well now Sister Breast cancer, Onset Age: 55 Had Radiation - Alive and well now Sister No problems noted. Sister No problems noted. Sister No problems noted. Sister No problems noted. Brother No problems noted. Son No problems noted. Son No problems noted. Social History Preferred Language: Romanian Communication Ability: Effective Visual Impairment: Limited Hearing Ability: Hard of Hearing Work Over Rig Operator Required: No Beliefs That Will Affect Care: None marital status: Single Current Living Situation: Family current occupational status: retired current occupation: Retired - [employer] Other Information That Helps Us Care for You: No Feels Safe at Home: Yes Safety Concerns: Feels Safe At This Time Smoking Status: Unknown if ever smoked Hx Alcohol Use: No Hx Substance Use: No caffeine: Yes (2 cups of coffee/day ) during the past year weight has: remained stable Review of Systems Review of Systems: PMH- morbid obesity DM, sleep apnea, gerd, melanoma Soc- retired, no tobacco, alcohol none lately, ROS- no fevers no chills, no chest pain no shortness khris breath, bowels fine, no vomiting appetite good, no rash, Physical Exam Constitutional: well developed, well nourished, + morbidly obese, well groomed, cooperative and comfortable; no acute distress Respiratory: normal respiratory effort; no cough Gastrointestinal (Abdomen): Inspection/Auscultation: abdomen normal to inspection, + abdomen distended and + significant pannus Percussion/Palpation: abdomen nontender, no guarding and abdomen not rigid Skin: no rashes, warm and dry Psychiatric: A+Ox3, euthymic affect Genitourinary: light red urine with some bloody sediment Results & Data Vital Signs (Past 12 Hours) Vital Signs Temp Pulse Pulse Pulse Resp BP Pulse Ox 09/14/19 15:32 36.4 C L 74 19 151/56 H 96 09/14/19 13:49 36.3 C L 79 18 143/65 H 94 09/14/19 08:00 72 09/14/19 07:50 36.7 C 76 20 131/70 95
--- NOTE | 2019-09-14 20:06 | Hospitalist Progress Note ---
Date of Service September 14, 2019 Assessment & Plan (1) Acute on chronic renal failure: Stage IV CKD now with worsening renal failure since he was hospitalized. Renal failure is likely multifactorial but may have a component of your obstructive uropathy related to enlarging bladder mass. Continue plan as above including transfer to tertiary care center for consideration of unilateral nephrostomy tube placement. (2) Metastatic malignant melanoma: Initial skin excision completed and patient has more chronic involvement of the bladder, adrenal gland, and now there are multiple lesions in the kidney concerning for metastatic disease. Currently not on any systemic chemotherapy or immunotherapy regimen as he has failed a trial of those that of been offered. May benefit from additional oncology consultation at receiving facility. (3) Bladder mass: History of metastatic melanoma with bladder mass that was resected in April 2019. This is returned and is now doubled in size and is potentially c ausing obstructive uropathy related to his worsening renal failure. Mild hydronephrosis was seen on a CT scan of the abdomen pelvis performed mid August. The case was discussed with Dr. Moore, urology from [facility] who has treated the patient in the past, and he recommends sending him to tertiary care facility for further treatment options. Gross hematuria is present today and is intermittent. (4) Gross hematuria: Likely secondary to bladder mass which has enlarged. Patient is being transferred to [facility] and will be seen by urology there for treatment options. 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 PM check in one week. (6) Paroxysmal atrial fibrillation: continue amiodarone. Anticoagulation is contraindicated secondary to persistent gross hematuria and increased bleeding risk. (7) Diabetes type 2, uncontrolled: Glucose is controlled. Continue basal bolus insulin with correction factor and carb coverage while hospitalized. (8) Sleep apnea: CPAP qHS (9) Adrenal insufficiency: Status post left adrenalectomy, continue home Florinef, Cortef. (10) DVT prophylaxis: SCDs/ambulation, chemoprophylaxis is contraindicated in acute bleeding Full code Disposition-awaiting transfer to [facility] DO Karina Byers Hospitalist Admission and Anticipated Discharge Date Admission Date: September 09, 2019 Anticipated date of discharge: 09/13/19 Subjective Feeling well today. Denies chest pain, SOB or other complications from recent pacemaker insertion. Tolerating PO Review of Systems Review of Systems: All systems reviewed & are unremarkable except as noted in Subjective Physical Exam Physical Exam: CONSTITUTIONAL: obese, vitals as above, generally well- appearing EYES: normal conjunctivae, no scleral icterus ENT: MMM RESPIRATORY: clear to auscultation bilaterally, no crackles, rales or wheezes, normal respiratory effort CARDIOVASCULAR: regular rate and rhythm, S1 and 2 heard without murmurs, gallops or rubs, no JVD, no peripheral edema GASTROINTESTINAL: normal bowel sounds, soft, nontender, nondistended but protuberant. MUSCULOSKELETAL: strength 5/5 throughout, head is normocephalic and atraumatic SKIN: warm and dry NEUROLOGIC: CN 2-12 grossly intact, no sensory deficit, normal cognition, normal speech, no gross focal deficits. PSYCHIATRIC: alert cooperative and oriented to person, place and time. Results & Data ([facility]) Vital Signs (Past 12 Hours) Vital Signs Temp Pulse Pulse Resp BP Pulse Ox 09/14/19 19:52 36.4 C L 79 18 172/84 H 95 09/14/19 16:00 67 09/14/19 15:32 36.4 C L 74 19 151/56 H 96 09/14/19 13:49 36.3 C L 79 18 143/65 H 94 09/14/19 08:00 72 Laboratory Results Short CBC 09/14/19 Range/Units 05:50 Hgb 8.9 L (14.0-18.0) g/dL BMP 09/14/19 05:50 Sodium 136 Potassium 4.8 Chloride 103 Carbon Dioxide 26 BUN 53 H Creatinine 5.57 H* D Glucose 97 Calcium 8.9 Medications Administered Current Inpatient Medications Acetaminophen (Tylenol) 650 mg PO Q4H PRN PRN Reason: Pain or Fever Stop: 10/09/19 22:53 [facility]) [facility] Stop: 10/12/19 15:44 Last Admin: 09/14/19 09:28 Dose: 200 mg Documented by: Amlodipine Besylate (Norvasc) 10 mg PO QAM [facility] Stop: 10/10/19 08:59 Last Admin: 09/14/19 09:28 Dose: 10 mg Documented by: Calcitriol (Rocaltrol) 0.5 mcg PO DAILY [facility] Stop: 10/10/19 08:59 Last Admin: 09/14/19 09:28 Dose: 0.5 mcg Documented by: Dextrose (Dextrose 50%) 25 - 50 ml IV UD PRN; Protocol PRN Reason: Hypoglycemia Protocol Stop: 10/09/19 23:14 Docusate Sodium (Colace) 100 mg PO AMHS [facility] Stop: 10/10/19 08:59 Last Admin: 09/14/19 09:28 Dose: 100 mg Documented by: Fludrocortisone Acetate (Florinef) 0.1 mg PO QAM [facility] Stop: 10/10/19 08:59 Last Admin: 09/14/19 09:28 Dose: 0.1 mg Documented by: Gabapentin (Neurontin) 100 mg PO TID [facility] Stop: 10/10/19 08:59 Last Admin: 09/14/19 14:51 Dose: 100 mg Documented by: Glucagon (Glucagen) 1 mg SQ UD PRN; Protocol PRN Reason: Hypoglycemia Protocol Stop: 10/09/19 23:14 Glucose (Glucose 40%) 15 - 30 gm PO UD PRN; Protocol PRN Reason: Hypoglycemia Protocol Stop: 10/09/19 23:14 Glucose (Dex4 Glucose) 4 - 8 tabs PO UD PRN; Protocol PRN Reason: Hypoglycemia Protocol Stop: 10/09/19 23:14 Hydrocortisone (Cortef) 10 mg PO DAILY@1200,1500 [facility] Stop: 10/10/19 11:59 Last Admin: 09/14/19 16:11 Dose: 10 mg Documented by: Hydrocortisone (Cortef) 20 mg PO DAILY@0500 [facility] Stop: 10/10/19 04:59 Last Admin: 09/14/19 05:29 Dose: 20 mg Documented by: Insulin Aspart (Novolog Flexpen) 0 units SC ACHS [facility] Stop: 10/12/19 16:59 Last Admin: 09/14/19 17:04 Dose: 3 units Documented by: Insulin Glargine (Lantus Solostar Pen) 8 units SC BID [facility] Stop: 10/12/19 08:59 Last Admin: 09/14/19 09:28 Dose: 8 units Documented by: Lorazepam (Ativan) 1 mg PO HS [facility] Stop: 10/09/19 23:14 Last Admin: 09/13/19 21:40 Dose: 1 mg Documented by: Lorazepam (Ativan) 1 mg PO DAILY PRN PRN Reason: Anxiety Stop: 10/09/19 23:06 Miscellaneous (Carbohydrates For Hypoglycemia) 15 - 30 gm PO UD PRN PRN Reason: Hypoglycemia Treatment Stop: 10/09/19 23:14 Nitroglycerin (Nitrostat) 0.4 mg SL UD PRN PRN Reason: Chest Pain Stop: 10/09/19 22:53 Nitroglycerin (Nitro-Bid 2%) 0.5 inch EXT Q6H [facility] Stop: 10/10/19 00:00 Last Admin: 09/14/19 17:26 Dose: 0.5 inch Documented by: Ondansetron HCl (Zofran) 4 mg IV Q6H PRN PRN Reason: Nausea Stop: 10/09/19 22:53 Oxycodone HCl (Roxicodone Immediate Rel) 5 mg PO Q4 PRN PRN Reason: Pain Stop: 09/26/19 12:29 Polyethylene Glycol (Miralax Powder Packet) 17 gm PO DAILY PRN PRN Reason: Constipation Stop: 10/09/19 22:53 Pramipexole Dihydrochloride (Mirapex) 0.5 mg PO BID [facility] Stop: 10/09/19 22:53 Last Admin: 09/14/19 09:28 Dose: 0.5 mg Documented by: Torsemide (Demadex) 20 mg PO QAM [facility] Stop: 10/10/19 08:59 Last Admin: 09/12/19 08:14 Dose: 20 mg Documented by: Triamcinolone Acetonide (Kenalog 0.1%) 1 appln TOP BID PRN PRN Reason: Rash Stop: 10/09/19 22:53 Vitamin D (Vitamin D3) 1,000 units PO QAM [facility] Stop: 10/10/19 08:59 Last Admin: 09/14/19 09:28 Dose: 1,000 units Documented by: (1) Acute on chronic renal failure Chronic kidney disease stage: stage 4 (severe)
[2019-09-14] MEDS: LORazepam 1 MG TAB PO SCH (20:40)
[2019-09-15] MEDS: HYDROCORTISONE 10 MG TAB PO SCH ×3 (05:43→15:15)
[2019-09-15] MEDS: NITROGLYCERIN 2% OINTMENT 30GM TUBE EXT SCH ×2 (05:44→12:01)
[2019-09-15 07:09] LABS: BUN Creatinine Ratio 9.7 (10-20); Calcium 9.3 mg/dl (8.5-10.1); Creatinine Clr Calc Pharmacy 16.1 ml/min; Est GFR (African American) 10.2; Est GFR (Non-African American) 8.8; Potassium 4.5 mmol/L (3.5-5.1)
[2019-09-15] MEDS: PRAMIPEXOLE DIHYDROCHLO 0.5 MG TAB PO SCH (08:30)
[2019-09-15] MEDS: GABAPENTIN 100 MG CAP PO SCH ×2 (08:30→14:32)
[2019-09-15] MEDS: AMIODARONE 200 MG TAB PO SCH (08:30)
[2019-09-15] MEDS: CHOLECALCIFEROL 1,000 UNITS 25 MCG TAB PO SCH (08:31)
[2019-09-15] MEDS: INSULIN GLARGINE SOLOSTAR 100 UNITS/ML 3 ML PEN SC SCH (08:31)
[2019-09-15] MEDS: DOCUSATE SODIUM 100 MG CAP PO SCH (08:31)
[2019-09-15] MEDS: AMLODIPINE BESYLATE 5 MG TAB PO SCH (08:31)
[2019-09-15] MEDS: CALCITRIOL 0.25 MCG CAPSULE PO SCH (08:31)
[2019-09-15] MEDS: FLUDROCORTISONE ACETATE 0.1 MG TAB PO SCH (08:31)
[2019-09-15] MEDS: INSULIN ASPART 100 UNITS/ML 3 ML PEN SC SCH ×2 (08:32→11:59)
--- NOTE | 2019-09-15 10:20 | Nephrology Progress Note ---
Date of Service September 15, 2019 Assessment & Plan (1) Acute on chronic renal failure: Unclear whether he is having acute on chronic renal insufficiency or progression of his severe chronic kidney disease. Hopefully with elimination of cardiac pauses, renal perfusion will improve (has not happened yet). given recent OP imaging, concern that this is renal progression; emerging obstructive uropathy w/ history of metastatic melanoma including in bladder, small bowel, sigmoid colon; renal lesions, as well as frequent acute kidney injury including earlier this month. not oliguric. DDX primarily obstructive uropathy versus infiltrative process versus both; could also be ischemic ATN, prerenal acute renal failure. Prior baseline creatinine had been low to mid , as recently as mid July. H owever creatinine began to climb w/ early Aug influenza admission w/ presenting value 3.2 on 08/25 and range 2.8-3.1, down to 2.8 on 08/29 d/c, olivia value this month. On presentation here on 09/09, creatinine was 3.3, trending up ever since. His chemistries are acceptable for now. His volume status consistent with mild volume overload. No further diuretics ordered at this time. Recommend diuretics as needed No acute indication for dialysis; I did discuss ESRD w/ pt today as below -no oliguria but pls cont I/O palliative /goals of care discussion as below -cont renal diet ->>>>>>>>>>>>>>>>>>>needs f/u w/ Dr Cuevas in kidney clinic in early/mid september to discuss goals of care -prn diuretics for resp distress (2) Metastatic malignant melanoma: May well have a role in renal insufficiency at very least in obstruction; ? if infiltration into renal parenchyma >for transfer to [facility] [place] for eval for palliative surgical procedures (3) Tachy-oscar syndrome: Status post pacer placement today; monitor renal parameters (4) Goals of care, counseling/discussion: concern for HECTOR on CKD versus ESRD >> cannot rule out need for dialysis coming up swiftly, though dialysis not needed today. dialysis decision IF he is even a candidate needs to be in overall context of goals of care -poor dialysis candidate given aggressive metastatic CA; reintroduced these ideas to him today; no final dispo from discussion patient; I did NOT offer dialysis but rather shared why dialysis for him may worsen quality of life and may or may not prolong life; goal here would be to take measures so he can be active, enjoy home and family time as much/long as possible from my discussions w/ him >>pt tells me he feels good and knowing his time was short had just bought a new side by side he hopes to ride around on; has not had a chance to do this. -for transfer to [facility] to f/u w/ Dr Moore (urologist who saw him earlier this month) -- ? role for palliative nephrostomy tube or other procedure and pt may be transferred for this; would also want clarification if other surgical options now or in future or not (jessenia regarding bladder mass); but also important here for pt to hear from [facility] urology ideally and/or Dr Culp oncology about prx -strongly recommend palliative care consultation after transfer b/c sooner or later believe he will have obstruction or other end stage challenges related to increasing CA burden -- he needs help navigating these issues w/o looking at this as "giving up" Admission and Anticipated Discharge Date Admission Date: September 09, 2019 Anticipated date of discharge: 09/13/19 Subjective no complaints this am; ate full tray; no n/v, no worse sob or edema. no uncontrolled pain. no new voiding concerns Review of Systems Review of Systems: All systems reviewed & are unremarkable except as noted in HPI & below Physical Exam Constitutional: well developed, + morbidly obese and cooperative; no acute distress (sitting up in chair on ra) Eyes: EOM intact bilaterally ENMT: Ears: no external ear abnormality Nose: no external nose abnormality Mouth: + dry oral mucous membranes Neck: no nuchal rigidity Respiratory: normal respiratory effort and able to speak in complete sentences; no respiratory distress and no labored breathing (unlike yesterday) Auscultation: lungs clear to auscultation bilaterally and + diminished lung sounds Cardiovascular: Rate/Rhythm: regular rate and regular rhythm Extremities: + edema (2-3+ bilateral pedal edema and 1-2+ pretibial, indurated) Gastrointestinal (Abdomen): Inspection/Auscultation: normal bowel sounds Percussion/Palpation: abdomen soft; abdomen nontender Musculoskeletal: Extremities: strength 5/5 throughout Skin: no rashes, warm and dry Neurologic: comer ,fluent speech, no tremor Psychiatric: A+Ox3, euthymic affect Results & Data ([facility]) Vital Signs (Past 12 Hours) Vital Signs Temp Pulse Pulse Resp BP BP Pulse Ox 09/15/19 07:32 36.3 C L 74 18 146/73 H 97 09/15/19 04:14 36.4 C L 77 16 143/75 H 95 09/15/19 00:00 73 09/14/19 23:06 36.2 C L 83 18 167/77 H 92 Laboratory Results 09/14/19 05:50 09/15/19 06:04 (1) Acute on chronic renal failure Chronic kidney disease stage: stage 4 (severe)
--- NOTE | 2019-09-15 11:23 | Hospitalist Progress Note ---
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 PM check in one week. (2) Acute on chronic renal failure: Stage IV CKD now with worsening renal failure since he was hospitalized. Renal failure is likely multifactorial but may have a component of your obstructive uropathy related to enlarging bladder mass. Continue plan as above including transfer to tertiary care center for consideration of unilateral nephrostomy tube placement. Still awaiting bed placement. (3) Metastatic malignant melanoma: Initial skin excision completed and patient has more chronic involvement of the bladder, adrenal gland, and now there are multiple lesions in the kidney concerning for metastatic disease. Currently not on any systemic chemotherapy or immunotherapy regimen as he has failed a trial of those that of been offered. May benefit from additional oncology consultation at receiving facility. (4) Bladder mass: History of metastatic melanoma with bladder mass that was resected in April 2019. This has returned and is now doubled in size and is potentially causing obstructive uropathy related to his worsening renal failure. Mild hydronephrosis was seen on a CT scan of the abdomen pelvis performed mid August. The case was discussed with Dr. Moore, urology from [facility] who has treated the patient in the past, and he recommends sending him to tertiary care facility for further treatment options. Gross hematuria is present and is intermittent. Awaiting bed opening for transfer, hopefully today. (5) Gross hematuria: Likely secondary to bladder mass which has enlarged. Patient is being transferred to [facility] and will be seen by urology there for treatment options. (6) Paroxysmal atrial fibrillation: sinus rhythm on monitor with no events overnight. Remains hemodynamically stable. Cont amio and hematuria is a contraindication for anticoagulation. (7) DVT prophylaxis: SCDS/ambulation Full Dispo-to [facility] when bed available, hopefully today. Rut Najera DO [facility] Hospitalist Admission and Anticipated Discharge Date Admission Date: September 09, 2019 Anticipated date of discharge: 09/13/19 Subjective Doing well today Asymptomatic Tolerating PO no issues with PM site Wound covered with steri strips Review of Systems Review of Systems: All systems reviewed & are unremarkable except as noted in Subjective Physical Exam Physical Exam: CONSTITUTIONAL: obese, vitals as above, generally well- appearing EYES: normal conjunctivae, no scleral icterus ENT: MMM RESPIRATORY: clear to auscultation bilaterally, no crackles, rales or wheezes, normal respiratory effort CARDIOVASCULAR: regular rate and rhythm, S1 and 2 heard without murmurs, gallops or rubs, no JVD, no peripheral edema GASTROINTESTINAL: normal bowel sounds, soft, nontender, nondistended but protuberant. MUSCULOSKELETAL: strength 5/5 throughout, head is normocephalic and atraumatic SKIN: warm and dry NEUROLOGIC: CN 2-12 grossly intact, no sensory deficit, normal cognition, normal speech, no gross focal deficits. PSYCHIATRIC: alert cooperative and oriented to person, place and time. Results & Data ([facility]) Vital Signs (Past 12 Hours) Vital Signs Temp Pulse Pulse Resp BP Pulse Ox 09/15/19 08:00 69 09/15/19 07:32 36.3 C L 74 18 146/73 H 97 09/15/19 04:14 36.4 C L 77 16 143/75 H 95 09/15/19 00:00 73 Laboratory Results BMP 09/15/19 06:04 Sodium 135 L Potassium 4.5 Chloride 102 Carbon Dioxide 24 BUN 56 H Creatinine 5.89 H* D Glucose 79 Calcium 9.3 Medications Administered Current Inpatient Medications Acetaminophen (Tylenol) 650 mg PO Q4H PRN PRN Reason: Pain or Fever Stop: 10/09/19 22:53 Amiodarone HCl (Cordarone) 200 mg PO QAM [facility] Stop: 10/12/19 15:44 Last Admin: 09/15/19 08:30 Dose: 200 mg Documented by: Amlodipine Besylate (Norvasc) 10 mg PO QAM [facility] Stop: 10/10/19 08:59 Last Admin: 09/15/19 08:31 Dose: 10 mg Documented by: Calcitriol (Rocaltrol) 0.5 mcg PO DAILY [facility] Stop: 10/10/19 08:59 Last Admin: 09/15/19 08:31 Dose: 0.5 mcg Documented by: Dextrose (Dextrose 50%) 25 - 50 ml IV UD PRN; Protocol PRN Reason: Hypoglycemia Protocol Stop: 10/09/19 23:14 Docusate Sodium (Colace) 100 mg PO AMH [facility] Stop: 10/10/19 08:59 Last Admin: 09/15/19 08:31 Dose: 100 mg Documented by: Fludrocortisone Acetate (Florinef) 0.1 mg PO QAM [facility] Stop: 10/10/19 08:59 Last Admin: 09/15/19 08:31 Dose: 0.1 mg Documented by: Gabapentin (Neurontin) 100 mg PO TID [facility] Stop: 10/10/19 08:59 Last Admin: 09/15/19 08:30 Dose: 100 mg Documented by: Glucagon (Glucagen) 1 mg SQ UD PRN; Protocol PRN Reason: Hypoglycemia Protocol Stop: 10/09/19 23:14 Glucose (Glucose 40%) 15 - 30 gm PO UD PRN; Protocol PRN Reason: Hypoglycemia Protocol Stop: 10/09/19 23:14 Glucose (Dex4 Glucose) 4 - 8 tabs PO UD PRN; Protocol PRN Reason: Hypoglycemia Protocol Stop: 10/09/19 23:14 Hydrocortisone (Cortef) 10 mg PO DAILY@1200,1500 [facility] Stop: 10/10/19 11:59 Last Admin: 09/14/19 16:11 Dose: 10 mg Documented by: Hydrocortisone (Cortef) 20 mg PO DAILY@0500 [facility] Stop: 10/10/19 04:59 Last Admin: 09/15/19 05:43 Dose: 20 mg Documented by: Insulin Aspart (Novolog Flexpen) 0 units SC ACHS [facility] Stop: 10/12/19 16:59 Last Admin: 09/15/19 08:32 Dose: 3 units Documented by: Insulin Glargine (Lantus Solostar Pen) 8 units SC BID [facility] Stop: 10/12/19 08:59 Last Admin: 09/15/19 08:31 Dose: 8 units Documented by: Lorazepam (Ativan) 1 mg PO HS [facility] Stop: 10/09/19 23:14 Last Admin: 09/14/19 20:40 Dose: 1 mg Documented by: Lorazepam (Ativan) 1 mg PO DAILY PRN PRN Reason: Anxiety Stop: 10/09/19 23:06 Miscellaneous (Carbohydrates For Hypoglycemia) 15 - 30 gm PO UD PRN PRN Reason: Hypoglycemia Treatment Stop: 10/09/19 23:14 Nitroglycerin (Nitrostat) 0.4 mg SL UD PRN PRN Reason: Chest Pain Stop: 10/09/19 22:53 Nitroglycerin (Nitro-Bid 2%) 0.5 inch EXT Q6H [facility] Stop: 10/10/19 00:00 Last Admin: 09/15/19 05:44 Dose: 0.5 inch Documented by: Ondansetron HCl (Zofran) 4 mg IV Q6H PRN PRN Reason: Nausea Stop: 10/09/19 22:53 Oxycodone HCl (Roxicodone Immediate Rel) 5 mg PO Q4 PRN PRN Reason: Pain Stop: 09/26/19 12:29 Polyethylene Glycol (Miralax Powder Packet) 17 gm PO DAILY PRN PRN Reason: Constipation Stop: 10/09/19 22:53 Pramipexole Dihydrochloride (Mirapex) 0.5 mg PO BID [facility] Stop: 10/09/19 22:53 Last Admin: 09/15/19 08:30 Dose: 0.5 mg Documented by: [facility]) [facility] Stop: 10/10/19 08:59 Last Admin: 09/12/19 08:14 Dose: 20 mg Documented by: Triamcinolone Acetonide (Kenalog 0.1%) 1 appln TOP BID PRN PRN Reason: Rash Stop: 10/09/19 22:53 Vitamin D (Vitamin D3) 1,000 [facility] Stop: 10/10/19 08:59 Last Admin: 09/15/19 08:31 Dose: 1,000 units Documented by: (1) Acute on chronic renal failure Chronic kidney disease stage: stage 4 (severe)
[2019-09-15 12:26] VITALS: BP 145/78; PULSE 78; O2SAT 98
[2019-09-15 15:43] VITALS: TEMP 97.7
== END 2019-09-15 15:42 | disposition short-term general hospital (02) | DRG 242 ==
LOC: ED 18:03 → SUATTDRO 22:12 → 2E 22:12

== ENCOUNTER 2019-09-29 14:44 | Inpatient (IN) ==
[2019-09-29] MEDS ORDERED: ONDANSETRON INJ 2 MG/ML 2 ML VIAL IV STA (15:40)
--- NOTE | 2019-09-29 15:40 | Emergency Department Note ---
ED Provider Note NAME: MARYANN RAHMAN AGE: 74 SEX: M ARRIVES VIA: Walk-In INFORMANT: Patient ED PROVIDER(S): Varinder Blomo MD CHIEF COMPLAINT: Dysuria IMPRESSION: Urinary tract infection Nephrostomy tube PLAN: Disposition: Admitted Condition: [Good] MEDICAL DECISION MAKING: Patient presented to emerge department dysuria. He has nephrostomy tube and urine became cloudy. Urinalysis obtained from the nephrostomy tube was concerning for infection. Regular urinalysis also was the same. Cultures were sent. The patient has a history of ESBL E. coli. His blood work revealed a leukocytosis. He was treated with ertapenem after consultation with pharmacy. He will need further management in the hospital. He did receive IV Dilaudid for pain. The patient had a consultation with internal medicine and was admitted for further treatment. Triage Nursing notes reviewed and agree them. [Prior medical records reviewed] history of ESBL E. coli Vital Signs: reviewed and remarkable for [no significant abnormalities] Differential diagnosis: Pyelonephritis, cystitis, UTI, dehydration, sepsis, as well as other pathologies ER treatment provided: IV Dilaudid IV ertapenem Will Pyridium IV Zofran Diagnostics interpreted by me: Laboratory studies: [See below] leukocytosis on CBC. Stable chronic renal failure. Imaging studies: CT scan of pelvis reveals cystitis and inflammatory change around the ureter. Nephrostomy tube in place. [facility] The patient was evaluated in the ER for further management HPI: The patient is a 74 year old male who presents to the Emergency Room with complaints of dysuria. This started 2 days ago and is worsening. The patient also notes the following associated symptoms, urinary frequency and cloudy urine. The patient has found no relieving factors. Current pain is rated as 10/10. He has a nephrostomy tube due to cancer. The fluid in the bag has become cloud. Prior history or UTI. Home health directed him to the ERPt denies LOC, headache, fevers, chills, diaphoresis, visual changes, neck pain, chest pain, breathing difficulties, nausea, vomiting, abdominal pain, back pain, melena, hematochezia, numbness, weakness, lymphadenopathy, rash, or other complaints. ROS: See above HPI for pertinent positives & negatives. A total of 10 systems reviewed and were otherwise negative. PAST MEDICAL HISTORY:See Below , UTI, CHF PAST SURGICAL HISTORY:Nephrostomy FAMILY HISTORY:See Below SOCIAL HISTORY:Denies ETOH, Tobacco HOME MEDICATIONS:See Below ALLERGIES:See Below VITALS:See Below PHYSICAL EXAMINATION: GENERAL: Awake, alert, uncomfortable-appearing, in no distress HENT: Normocephalic, atraumatic. Oropharynx unremarkable. EYES: Normal conjunctiva. Sclera non-icteric. NECK: Inspection normal. Non-tender. Supple. No nuchal rigidity. FROM. No masses. RESPIRATORY: Clear to auscultation. No wheezes. No rales. Normal respiratory effort. CARDIAC: Normal rate. Normal rhythm. No murmurs. No rubs. Extremities warm and well perfused. Pulses equal. No JVD. GI: Soft, non-distended. suprapubic tenderness to palpation. No rebound or guarding. No masses. RECTAL: Deferred. MUSCULOSKELETAL: Atraumatic. Chest examination reveals no tenderness. The back is symmetrical on inspection without obvious abnormality. There is right CVA tenderness to palpation. Right nephrostomy tube present. The urine is cloudy. No joint edema. LOWER EXTREMITIES: Calves are equal size bilaterally and non-tender. 1+ edema. No discoloration. NEURO: Normal sensorium. No sensory or motor deficits noted. SKIN: No rash or jaundice noted. ED COURSE: Procedures: [none] [Critical Care:] [None] Impression & Plan UTI (urinary tract infection), Nephrostomy status, Dysuria, Leukocytosis Past Med/Surg History Medical History (Updated 09/29/19 @ 23:08 by Varinder Bloom MD) Adrenal insufficiency S/P LEFT ADRENALECTOMY- ON CHRONIC HYDROCORTISONE Anxiety (Chronic) Cardiomyopathy (Chronic) Chronic kidney disease, stage 4 (severe) Degenerative disc disease (Chronic) Diabetes mellitus, type II Dyslipidemia (Chronic) H/O transfusion of packed red blood cells S/P 2 UNITS (2016) History of immunotherapy (Chronic) Keytruda x 2 Cycles (had to stop after 2nd cycle) Current Opdivo q 2 weeks (currently on hold) - started 05/2017 - 04/2018 Hypertension Metastatic malignant melanoma Morbid obesity (Chronic) Sleep apnea CPAP HS Surgical History (Updated 09/29/19 @ 23:08 by Varinder Bloom MD) History of colonoscopy 2016 History of esophagogastroduodenoscopy (EGD) 2017 History of tooth extraction Hx of cystoscopy 05/05/18 - BLADDER TUMOR EXCISION Hx of total adrenalectomy LEFT SIDE-- HX B/L ADRENAL MASSES; UNDERWENT LAP LEFT ADRENAL MASS EXCISION 04/14/17; PATHOLOGY METASTATIC MALIGNANT MELANOMA WITH VASCULAR INVASION Nephrostomy status (Acute) Family History Father No problems noted. Mother Colon cancer, Onset Age: 85 Chemo and Resection - Alive and well now Sister Breast cancer, Onset Age: 55 Had Radiation - Alive and well now Sister No problems noted. Sister No problems noted. Sister No problems noted. Sister No problems noted. Brother No problems noted. Son No problems noted. Son No problems noted. 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 Beliefs That Will Affect Care: None marital status: Single Current Living Situation: Significant Other current occupational status: retired current occupation: Retired - [employer] Feels Safe at Home: Yes Safety Concerns: Feels Safe At This Time Smoking Status: Never smoker Tobacco Type: smokeless tobacco ; Second Hand Exposure: No ; Hx Alcohol Use: No Hx Substance Use: No caffeine: Yes (2 cups of coffee/day ) during the past year weight has: remained stable Results & Data Vital Signs Vital Signs - 24 hr 09/29/19 14:53 09/29/19 17:31 09/29/19 17:35 Temperature 36.5 C Temperature Source Oral Pulse Rate 104 H 86 Pulse Rate from SpO2 Sensor 87 Pulse Rhythm Regular Pulse Strength Normal Respiratory Rate 16 25 H Respiratory Effort / Characteristics Non-Labored Respiratory Depth Normal Respiratory Pattern Regular Blood Pressure 116/69 122/60 Blood Pressure Mean 84 92 Blood Pressure Position Sitting Pulse Oximetry 95 93 92 Oxygen Delivery Method Room Air Room Air Sepsis Recent Fever Within 48 Hours No Sepsis Action Taken by Nursing No Action Required 09/29/19 18:00 09/29/19 18:30 Temperature Temperature Source Pulse Rate 90 84 Pulse Rate from SpO2 Sensor 91 H 84 Pulse Rhythm Pulse Strength Respiratory Rate 14 17 Respiratory Effort / Characteristics Respiratory Depth Respiratory Pattern Blood Pressure 107/56 L 125/79 Blood Pressure Mean 71 98 Blood Pressure Position Pulse Oximetry 92 95 Oxygen Delivery Method Sepsis Recent Fever Within 48 Hours Sepsis Action Taken by Nursing Laboratory Data Result diagrams: 09/29/19 16:20 09/29/19 16:20 Lab Results 09/29/19 09/29/19 09/29/19 Range/Units 16:20 16:20 17:30 WBC 15.66 H (4.8-10.8) K/uL RBC 4.23 L (4.7-6.1) M/uL Hgb 10.1 L (14.0-18.0) g/dL Hct 34.1 L (42-52) % MCV 80.6 (80-100) fL MCH 23.9 L (25-34) pg MCHC 29.6 L (32-36) g/dL RDW Std Deviation 59.1 H (36.4-46.3) fL RDW Coeff of Scottie 20.0 H (11.5-14.5) % Plt Count 254 (130-400) K/uL MPV 9.1 (7.4-10.4) fL Immature Gran % (Auto) 0.4 % Neut % (Auto) 85.3 % Lymph % (Auto) 6.0 % [place] % (Auto) 7.3 % Eos % (Auto) 0.9 % Baso % (Auto) 0.1 % Immature Gran # (Auto) 0.06 H (0.00-0.02) K/uL Neut # (Auto) 13.36 H (1.4-6.5) K/uL Lymph # (Auto) 0.94 L (1.2-3.4) K/uL Yancey # (Auto) 1.14 H (0.11-0.59) K/uL Eos # (Auto) 0.14 (0-0.5) K/uL Baso # (Auto) 0.02 (0-0.2) K/uL Anisocytosis Present Ovalocytes 1+ Sodium 134 L (136-145) mmol/L Potassium 5.0 (3.5-5.1) mmol/L Chloride 103 (98-107) mmol/L Carbon Dioxide 20 L (21-32) mmol/L Anion Gap 11.0 (3-11) BUN 53 H (7-18) mg/dl Creatinine 5.49 H* (0.6-1.4) mg/dl Est Cr Clr Drug Dosing Not Reportable Est GFR ( Amer) 11.1 Est GFR (Non-Af Amer) 9.6 BUN/Creatinine Ratio 9.7 L (10-20) Glucose 117 H (70-99) mg/dl Calcium 9.2 (8.5-10.1) mg/dl Total Bilirubin 0.7 (0.2-1) mg/dl AST 21 (15-37) U/L ALT 15 (12-78) U/L Alkaline Phosphatase 80 (45-117) U/L Total Protein 7.2 (6.4-8.2) gm/dl Albumin 2.9 L (3.4-5.0) gm/dl Globulin 4.3 H (2.5-4.0) gm/dl Albumin/Globulin Ratio 0.7 L (0.9-2) Lipase 102 (73-393) U/L Urine Color [place] Urine Appearance Turbid A (Clear) Urine pH 5.5 (4.5-7.5) Ur Specific [place] 1.019 (1.000-1.030) Urine Protein 3+ H (Negative) Urine Glucose (UA) Negative (Negative) Urine Ketones Negative (Negative) Urine Blood 3+ H (Negative) Urine Nitrite Positive A (Negative) Urine Bilirubin Negative (Negative) Urine Urobilinogen Negative (Negative) Ur Leukocyte Esterase 3+ H (Negative) Urine WBC (Auto) >30 H (0-5) /hpf Urine RBC (Auto) >30 H (0-4) /hpf U Hyaline Cast (Auto) 1-5 (0-5) /lpf U Epithel Cells (Auto) >30 H (0-5) /lpf Urine Bacteria (Auto) Negative (Negative) Granular Casts (0) /lpf Urine Yeast Not Reportable 09/29/19 Range/Units 17:30 WBC (4.8-10.8) K/uL RBC (4.7-6.1) M/uL Hgb (14.0-18.0) g/dL Hct (42-52) % MCV (80-100) fL MCH (25-34) pg MCHC (32-36) g/dL RDW Std Deviation (36.4-46.3) fL RDW Coeff of Scottie (11.5-14.5) % Plt Count (130-400) K/uL MPV (7.4-10.4) fL Immature Gran % (Auto) % Neut % (Auto) % Lymph % (Auto) % [place] % (Auto) % Eos % (Auto) % Baso % (Auto) % Immature Gran # (Auto) (0.00-0.02) K/uL Neut # (Auto) (1.4-6.5) K/uL Lymph # (Auto) (1.2-3.4) K/uL [place] # (Auto) (0.11-0.59) K/uL Eos # (Auto) (0-0.5) K/uL Baso # (Auto) (0-0.2) K/uL Anisocytosis Ovalocytes Sodium (136-145) mmol/L Potassium (3.5-5.1) mmol/L Chloride (98-107) mmol/L Carbon Dioxide (21-32) mmol/L Anion Gap (3-11) BUN (7-18) mg/dl Creatinine (0.6-1.4) mg/dl Est Cr Clr Drug Dosing Est GFR ( Amer) Est GFR (Non-Af Amer) BUN/Creatinine Ratio (10-20) Glucose (70-99) mg/dl Calcium (8.5-10.1) mg/dl Total Bilirubin (0.2-1) mg/dl AST (15-37) U/L ALT (12-78) U/L Alkaline Phosphatase (45-117) U/L Total Protein (6.4-8.2) gm/dl Albumin (3.4-5.0) gm/dl Globulin (2.5-4.0) gm/dl Albumin/Globulin Ratio (0.9-2) Lipase (73-393) U/L Urine Color [place] Urine Appearance Turbid A (Clear) Urine pH 5.0 (4.5-7.5) Ur Specific [place] 1.017 (1.000-1.030) Urine Protein 3+ H (Negative) Urine Glucose (UA) Negative (Negative) Urine Ketones Trace H (Negative) Urine Blood 3+ H (Negative) Urine Nitrite Negative (Negative) Urine Bilirubin Negative (Negative) Urine Urobilinogen Negative (Negative) Ur Leukocyte Esterase 3+ H (Negative) Urine WBC (Auto) >30 H (0-5) /hpf Urine RBC (Auto) >30 H (0-4) /hpf U Hyaline Cast (Auto) 1-5 (0-5) /lpf U Epithel Cells (Auto) >30 H (0-5) /lpf Urine Bacteria (Auto) 1+ H (Negative) Granular Casts 5-10 H (0) /lpf Urine Yeast Administered Medications Calcitriol (Rocaltrol) 0.5 mcg PO [facility] Stop: 10/29/19 21:44 Last Admin: 09/29/19 22:14 Dose: 0.5 mcg Documented by: [id number] Docusate Sodium (Colace) 100 mg PO BID [facility] Stop: 10/29/19 21:44 Last Admin: 09/29/19 22:14 Dose: 100 mg Documented by: [id number] Insulin Aspart (Novolog Flexpen) 0 units SC [facility] Stop: 10/29/19 21:44 Last Admin: 09/29/19 22:13 Dose: Not Given Documented by: [id number] Cosigned by: [id number] Insulin Glargine (Lantus Solostar Pen) 0 - 30 units SC BID [facility]; Protocol Stop: 10/29/19 21:44 Last Admin: 09/29/19 22:13 Dose: Not Given Documented by: [id number] Lorazepam (Ativan) 1 mg PO [facility] Stop: 10/29/19 21:44 Last Admin: 09/29/19 22:14 Dose: 1 mg Documented by: [id number] Morphine Sulfate (Morphine Sulfate) 2 mg IV Q4H PRN PRN Reason: Pain Stop: 10/13/19 22:25 Last Admin: 09/29/19 22:49 Dose: 2 mg Documented by: [id number] Discontinued Medications Hydromorphone HCl (Dilaudid) 0.25 mg IV Q15M PRN PRN Reason: Pain Stop: 10/13/19 15:39 Last Admin: 09/29/19 20:51 Dose: 0.25 mg Documented by: [id number] Admin: 09/29/19 19:36 Dose: 0.25 mg Documented by: [id number] Admin: 09/29/19 17:45 Dose: 0.25 mg Documented by: [id number] Admin: 09/29/19 16:23 Dose: 0.25 mg Documented by: [id number] Imipenem/Cilastatin Sodium 500 (mg/ Dextrose) 110 mls @ 100 mls/hr IV NOW STA Stop: 09/29/19 19:07 Last Infusion: 09/29/19 20:01 Dose: 0 mls/hr Documented by: [id number] Admin: 09/29/19 18:47 Dose: 100 mls/hr Documented by: [id number] Ondansetron HCl (Zofran) 4 mg IV NOW STA Stop: 09/29/19 15:41 Last Admin: 09/29/19 16:23 Dose: 4 mg Documented by: [id number] Phenazopyridine HCl (Pyridium) 200 mg PO NOW STA Stop: 09/29/19 18:35 Last Admin: 09/29/19 18:47 Dose: 200 mg Documented by: [id number] Discharge Plan Visit Data *Final* Discharge Date/Time: 09/29/19 21:00 Chief Complaint: Urinary Symptoms Stated Complaint: BURNING WHEN URINATING ED Provider: Varinder Bloom Discharge Problem: UTI (urinary tract infection), Nephrostomy status, Dysuria, Leukocytosis Patient Disposition: Admitted As Inpatient Discharge Instructions Interventions: ED Discharge Assessment Last Done: 09/29/19 21:00
[2019-09-29] MEDS: HYDROmorphone INJ 0.5 MG/0.5 ML SYR IV PRN ×4 (16:23→20:51)
[2019-09-29 16:30] LABS: Basophils # (auto) 0.02 K/uL (0-0.2); Basophils % (auto) 0.1 %; Eosinophils # (auto) 0.14 K/uL (0-0.5); Eosinophils % (auto) 0.9 %; Hematocrit (blood only) 34.1 % (42-52); Hemoglobin 10.1 g/dL (14.0-18.0); Immature Granulocytes # (auto) 0.06 K/uL (0.00-0.02); Immature Granulocytes % (auto) 0.4 %; Lymphocytes # (auto) 0.94 K/uL (1.2-3.4); Mean Corpuscular Hemoglobin 23.9 pg (25-34); Mean Corpuscular Hgb Conc 29.6 g/dL (32-36); Mean Corpuscular Volume 80.6 fL (80-100); Mean Platelet Volume 9.1 fL (7.4-10.4); Monocytes # (auto) 1.14 K/uL (0.11-0.59); Monocytes % (auto) 7.3 %; Neutrophils # (auto) 13.36 K/uL (1.4-6.5); Neutrophils % (auto) 85.3 %; Platelet Count 254 K/uL (130-400); RDW Standard Deviation 59.1 fL (36.4-46.3); Red Blood Count 4.23 M/uL (4.7-6.1); White Blood Count 15.66 K/uL (4.8-10.8)
--- NOTE | 2019-09-29 16:47 | CT Scan Report ---
CT abd pelvis wo con CT DOSE: 2239.54 mGy.cm HISTORY: Flank pain. right sided pain, cloudy urine, right nephrostomy TECHNIQUE: Multiaxial CT images of the abdomen and pelvis were performed without contrast. A dose lo wering technique was utilized adhering to the principles of ALARA. COMPARISON STUDY: 06/13/2019 FINDINGS: Interval placement of a bipolar cardiac pacemaker. Interval small right pericardial effusio n. Maximum thickness is 9 mm. Stable fatty replacement of the liver. Several small gallstones. Pancreas appears unremarkable. Fullness of the uncinate process of the pancreas considered unchanged. Findings of multicystic/polycystic type kidneys. Interval placement of of a right-sided nephrostomy c atheter. Catheter appears to be in good position. No evidence for renal hydronephrosis. Slight fullness of the right ureter with mild right periureteral infiltrative change. Increased densi ty within the bladder which potentially represents hematoma versus mass. Mild pericystic infiltrative change. Bowel pattern is nonobstructive. Normal appendix. IMPRESSION: 1. Right-sided nephrostomy catheter in good position. 2. Interval removal of the right ureteral stent. 3. Interval development of right ureteral distention with mild periureteral infiltrative change. 4. Increased density of the bulk of the bladder contents suggesting either progressive mass versus he matoma. 5. Moderate pericystic infiltrative change suggesting reactive change versus reactive change secondar y to cystitis. 6. Multicystic/polycystic ovaries bilaterally considered similar. 7. Interval placement of a right nephrostomy catheter in good position. 8. Interval bipolar cardiac pacemaker with a 1 cm pericardial effusion. ACT 112: Negative or not required by law. The above report was generated using voice recognition software. It may contain grammatical, syntax or spelling errors. Electronically signed by: Mateo Yung M.D. 09/29/2019 4:45 PM
[2019-09-29 17:03] LABS: Anisocytosis Present; Ovalocytes 1+
[2019-09-29 17:17] LABS: Alanine Aminotransferase 15 U/L (12-78); Albumin Globulin Ratio 0.7 (0.9-2); Albumin Level 2.9 gm/dl (3.4-5.0); Alkaline Phosphatase 80 U/L (45-117); Aspartate Aminotransferase 21 U/L (15-37); BUN Creatinine Ratio 9.7 (10-20); Bilirubin,Total 0.7 mg/dl (0.2-1); Blood Urea Nitrogen 53 mg/dl (7-18); Calcium 9.2 mg/dl (8.5-10.1); Carbon Dioxide 20 mmol/L (21-32); Chloride 103 mmol/L (98-107); Est GFR (African American) 11.1; Est GFR (Non-African American) 9.6; Globulin 4.3 gm/dl (2.5-4.0); Glucose 117 mg/dl (70-99); Lipase 102 U/L (73-393); Sodium 134 mmol/L (136-145); Total Protein 7.2 gm/dl (6.4-8.2)
[2019-09-29 17:52] LABS: Appearance Urine Turbid (Clear); Bacteria Urine Automated 1+ (Negative); Bacteria Urine Automated Negative (Negative); Bilirubin Urine Negative (Negative); Blood Urine 3+ (Negative); Color Urine Dark Yellow; Color Urine Orange; Epithelial Cell Urine Auto >30 /lpf (0-5); Glucose Urine UA Negative (Negative); Ketones Urine Negative (Negative); Ketones Urine Trace (Negative); Leukocyte Esterase Urine 3+ (Negative); Nitrite Urine Negative (Negative); Nitrite Urine Positive (Negative); Protein Urine 3+ (Negative); Specific Gravity Urine 1.017 (1.000-1.030); Specific Gravity Urine 1.019 (1.000-1.030); Urobilinogen Urine Negative (Negative); WBC Urine Automated >30 /hpf (0-5); pH Urine 5.5 (4.5-7.5)
[2019-09-29] MEDS ORDERED: IMIPENEM/CILASTATIN CONSULT ACTIVE PRN (18:02)
[2019-09-29] MEDS ORDERED: IMIPENEM/CILASTATIN SODIUM 500 MG in DEXTROSE 5% 100 ML IV STA (18:02)
[2019-09-29 18:11] LABS: Bilirubin Urine Negative (Negative); Ictotest Urine Negative (Negative)
[2019-09-29 18:23] LABS: RBC Urine Automated >30 /hpf (0-4)
[2019-09-29 18:29] LABS: RBC Urine Automated >30 /hpf (0-4)
[2019-09-29] MEDS ORDERED: PHENAZOPYRIDINE HCL 200 MG TAB PO STA (18:34)
--- NOTE | 2019-09-29 19:43 | History & Physical Report ---
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 continued intermittent hematuria however denies any increased hematuria. Denies fever In ER T: 36.5C, P: 105, R: 16, BP: 116/69, 95% on RA. WBC: 15. UA: 3+blood, 3+ leuk esterase, >30 WBC, >30 RBC, >30 epithelial, 1+bacteria -In ER imipenem/cilastatin IV, Zofran, Dilaudid, Pyridium given -Urine culture pending -Blood cultures pending -CBC, BMP in am -Urology consult (2) Chronic kidney disease, stage 4 (severe): Recent HECTOR on CKD. Recent obstructive uropathy. Right percutaneous nephrostomy tube placed. HECTOR was likely multifactorial, secondary to hypotensive ATN from recent surgery, obstructive uropathy. His kidney function did slowly improve after placement of nephrostomy tube. Cr peaked at 6.3 on 09/17/2019. Outpatient labs on 09/21/2019: Cr: 4.5. Today BUN: 53, Cr: 5.49, GFR: 9.6 -Avoid nephrotoxic agents when possible -Monitor renal functions -Continue calcitriol -Nephrology consult (3) Metastatic malignant melanoma: History of metastasis to adrenal gland and bladder s/p radiation and surgery. Most recent bladder resection on 05/14/[address] Moore at [facility] [place] Has follow-up with Dr. 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 On IV Iron Hgb: 10.1 -Monitor H&H (10) Diabetes mellitus, type II: A1c: 6.0 on 09/10/2019 on insulin -Continue basal insulin, bolus insulin per protocol (11) Sleep apnea: -CPAP at bedtime DVT Prophylaxis -SCDs secondary to history hematuria DNR/DNI as per discussion with pt Follows with Dr Mcguire for routine care Pt was seen and care coordinated with Dr Raygoza. 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 Patient reports continued intermittent hematuria however denies any increased hematuria. Has been feeling cold however denies any fever. Patient states he thought initially that his increased urinary frequency was secondary to torsemide however he then developed dysuria. Home health reports patient's weight was 307 pounds on 09/20/2019 and down to 285 pounds on 09/29/2019. Patient reports that he has noticed significant decreased BLE edema over the past week. Denies nausea, vomiting, diaphoresis, N/V/D/C, LIANG, dizziness, syncope, vision changes, neck pain, CP, SOB, orthopnea, palpitations, cough, s ore throat, choking, otalgia, rhinorrhea, abdominal pain, flank pain, paresthesias, weakness, rashes. Patient with recent hospitalization at [facility] 09/10/2019-09/15/2019 for acute on chronic CKD IV, obstructive uropathy, gross hematuria, tachybradycardia syndrome s/p pacemaker 09/12/2019 and was transferred to [place] 09/15/2019-09/19/2019. During that admission Bang placement did not improve kidney function and a renal ultrasound was performed which showed mild right hydronephrosis. Right percutaneous nephrostomy tube placed and patient continued to have minimal improvement of renal function after the procedure. HECTOR was likely multifactorial, secondary to hypotensive ATN from recent surgery, obstructive uropathy. His kidney function did slowly improve after placement of nephrostomy tube and was discharged home on 09/19/2019. There was discussion on palliative cystectomy and patient has follow-up with Dr. Moore at [facility] [place] on 10/03/2019 to further discuss. Creatinine had peaked at 6.3 on 09/17/2019. Outpatient labs on 09/21/2019: Creatinine 4.5. Patient was taken off of gabapentin and pramipexole secondary to CKD. Follow-up with cardiology in 09/21/2019. His amlodipine was decreased from 10 mg to 5 mg daily. Toprol 25 mg daily was restarted. Allergies Allergy/AdvReac Type Severity Reaction Status Date / Time perflutren AdvReac Intermediate GI SYMPTOMS Verified 09/29/19 16:55 propylene glycol AdvReac Intermediate GI SYMPTOMS Verified 09/29/19 16:55 simvastatin AdvReac Intermediate JOINT AND Verified 09/29/19 16:55 MUSCLE PAIN Home Medications Home Medications Medication Instructions Recorded Confirmed Type cholecalciferol (vitamin D3) 1,000 unit PO QAM 04/20/18 09/29/19 History [Vitamin D3] docusate sodium [Colace] 100 mg PO BID 04/20/18 09/29/19 History ondansetron HCl 4 mg tablet 4 mg PO Q8H PRN tab 08/10/18 09/29/19 History acetaminophen [Tylenol Extra 500 mg PO Q6H PRN 05/22/19 09/29/19 History Strength] methylprednisolone sodium succ 125 mg IM DIRECTED PRN 05/22/19 09/29/19 History triamcinolone acetonide 1 applic TOPICAL BID PRN 05/22/19 09/29/19 History Lantus Solostar U-100 Insulin 30 unit SC BID 07/02/19 09/29/19 History fludrocortisone 0.1 mg PO QAM 07/02/19 09/29/19 History hydrocortisone 10 mg PO DAILY@1200,1500 07/02/19 09/29/19 History hydrocortisone 20 mg PO DAILY@0500 07/02/19 09/29/19 History lorazepam 1 mg PO HS 07/02/19 09/29/19 History lorazepam 1 mg PO DAILY PRN 07/29/19 09/29/19 History amiodarone 200 mg PO QAM 08/17/19 09/29/19 History torsemide 20 mg PO QAM 08/17/19 09/29/19 History amlodipine [Norvasc] 5 mg PO QAM 08/25/19 09/29/19 History calcitriol 0.5 mcg PO HS 09/09/19 09/29/19 History metoprolol succinate 25 mg PO DAILY 09/29/19 09/29/19 History Past Med/Surg History Medical History (Updated 09/29/19 @ 23:08 by Varinder Bloom MD) Adrenal insufficiency S/P LEFT ADRENALECTOMY- ON CHRONIC HYDROCORTISONE Anxiety (Chronic) Cardiomyopathy (Chronic) Chronic kidney disease, stage 4 (severe) Degenerative disc disease (Chronic) Diabetes mellitus, type II Dyslipidemia (Chronic) H/O transfusion of packed red blood cells S/P 2 UNITS (2016) History of immunotherapy (Chronic) Keytruda x 2 Cycles (had to stop after 2nd cycle) Current Opdivo q 2 weeks (currently on hold) - started 05/2017 - 04/2018 Hypertension Metastatic malignant melanoma Morbid obesity (Chronic) Sleep apnea CPAP HS Surgical History (Updated 09/29/19 @ 23:08 by Varinder Bloom MD) History of colonoscopy 2016 History of esophagogastroduodenoscopy (EGD) 2017 History of tooth extraction Hx of cystoscopy 05/05/18 - BLADDER TUMOR EXCISION Hx of total adrenalectomy LEFT SIDE-- HX B/L ADRENAL MASSES; UNDERWENT LAP LEFT ADRENAL MASS EXCISION 04/14/17; PATHOLOGY METASTATIC MALIGNANT MELANOMA WITH VASCULAR INVASION Nephrostomy status (Acute) Family History Father No problems noted. Mother Colon cancer, Onset Age: 85 Chemo and Resection - Alive and well now Sister Breast cancer, Onset Age: 55 Had Radiation - Alive and well now Sister No problems noted. Sister No problems noted. Sister No problems noted. Sister No problems noted. Brother No problems noted. Son No problems noted. Son No problems noted. Social History Preferred Language: Lao Communication Ability: Effective Visual Impairment: Limited Hearing Ability: Hard of Hearing Setter Out Required: No Beliefs That Will Affect Care: None marital status: Single Current Living Situation: Significant Other current occupational status: retired current occupation: Retired - [employer] [place] Feels Safe at Home: Yes Safety Concerns: Feels Safe At This Time Smoking Status: Never smoker Tobacco Type: smokeless tobacco ; Second Hand Exposure: No ; Hx Alcohol Use: No Hx Substance Use: No caffeine: Yes (2 cups of coffee/day ) during the past year weight has: remained stable Review of Systems Review of Systems: All systems reviewed & are unremarkable except as noted in HPI & below Physical Exam Physical Exam: General: no acute distress, chronic ill appearing, obese Head: normocephalic, atraumatic Eyes: PERRL, EOM's intact, conjunctiva non-injected, anicteric ENT: normal inspection external ears, nose, mucous membranes moist Neck: supple, trachea midline Lungs: clear, no respiratory distress, no wheezing/rhonchi/rales CV: RRR, no murmur, no pretibial edema Abd: normal BS, protuberant, soft, non-tender; Right CVA with nephrostomy tube in place draining yellow cloudy urine Ext: no cyanosis, no calf tenderness Neuro: A&O x 3, no focal deficits noted, normal affect Skin: warm, dry Results & Data Vital Signs (Past 12 Hours) Vital Signs Temp Pulse Resp BP Pulse Ox 09/29/19 18:30 84 17 125/79 95 09/29/19 18:00 90 14 107/56 L 92 09/29/19 17:35 92 09/29/19 17:31 86 25 H 122/60 93 09/29/19 14:53 36.5 C 104 H 16 116/69 95 Laboratory Results Short CBC 09/29/19 Range/Units 16:20 WBC 15.66 H (4.8-10.8) K/uL Hgb 10.1 L (14.0-18.0) g/dL Hct 34.1 L (42-52) % Plt Count 254 (130-400) K/uL BMP 09/29/19 16:20 Sodium 134 L Potassium 5.0 Chloride 103 Carbon Dioxide 20 L BUN 53 H Creatinine 5.49 H* Glucose 117 H Calcium 9.2 Liver Function 09/29/19 Range/Units 16:20 Total Bilirubin 0.7 (0.2-1) mg/dl AST 21 (15-37) U/L ALT 15 (12-78) U/L Alkaline Phosphatase 80 (45-117) U/L Albumin 2.9 L (3.4-5.0) gm/dl Urine 09/29/19 09/29/19 Range/Units 17:30 17:30 Urine Color [place] Dark Yellow Urine Appearance Turbid A Turbid A (Clear) Urine pH 5.5 5.0 (4.5-7.5) Ur Specific [place] 1.019 1.017 (1.000-1.030) Urine Protein 3+ H 3+ H (Negative) Urine Glucose (UA) Negative Negative (Negative) Diagnostic Findings CT ABD/PELVIS: FINDINGS: Interval placement of a bipolar cardiac pacemaker. Interval small right pericardial effusion. Maximum thickness is 9 mm. Stable fatty replacement of the liver. Several small gallstones. Pancreas appears unremarkable. Fullness of the uncinate process of the pancreas considered unchanged. Findings of multicystic/polycystic type kidneys. Interval placement of of a right-sided nephrostomy catheter. Catheter appears to be in good position. No evidence for renal hydronephrosis. Slight fullness of the right ureter with mild right periureteral infiltrative change. Increased density within the bladder which potentially represents hematoma versus mass. Mild pericystic infiltrative change. Bowel pattern is nonobstructive. Normal appendix. Code Status & VTE Plan VTE Prophylaxis Plan VTE Prophylaxis will be ordered: Yes Supervising Physician Co-Signing Physician Notes Care coordinated with Lisset Shah PA-C. Agree with above note. Patient seen and examined. Please refer to her notes for full details. Vital signs reviewed. Physical exam: General exam: Alert and oriented. Not in acute distress. CVS: S1 and S2 heard, regular rate and rhythm, no murmurs. RS: Clear to auscultation, no wheezing or crackles. ABD: Soft, bowel sounds present, nontender, no distention.Right nephrostomy tube site no erythema or drainage seen CAP CUTTER: Nonfocal. EXT:no erythema. Labs: Reviewed. Assessment and plan: 74M with hx of tacy oscar syndrome s/p pace maker recently, Hx of metastatic melanoma wit obstructive bladder mass ecently s/p right nephrostomy tube at [place] presents with not feeling well, severe burning micturtion. Denies fevers. No chgest pain or back pain. No cough. UTI Complicated recent right nephrostomy tube follw cultures started on iv primaxin Meatatic melonoma obstructing bladder mass s/p right nephrostomy tube urology cnsulted Hector on CKD satge 4 follow labs Nephrology consulted CHF Lost 20lb decreased edema holding torsemide monitor for volume overload. Other diagnosis and plan of care as per Lisset Shah PA-C.. Eric chandler MD. (1) CHF (congestive heart failure) Heart failure chronicity: unspecified Heart failure type: unspecified Qualified Code(s): I50.9 - Heart failure, unspecified (2) Anemia Anemia type: unspecified type Qualified Code(s): D64.9 - Anemia, unspecified
[2019-09-29] MEDS ORDERED: DEXTROSE 50% 50 ML SYRINGE IV PRN (21:13)
[2019-09-29] MEDS ORDERED: GLUCOSE 10 TABS/TUBE PO PRN (21:13)
[2019-09-29] MEDS ORDERED: ACETAMINOPHEN 325 MG TAB PO PRN (21:13)
[2019-09-29] MEDS ORDERED: GLUCOSE 40% GEL 15 GM TUBE PO PRN (21:13)
[2019-09-29] MEDS ORDERED: LORazepam 1 MG TAB PO PRN (21:13)
[2019-09-29] MEDS ORDERED: GLUCAGON FOR INJ 1 MG VIAL SQ PRN (21:13)
[2019-09-29] MEDS ORDERED: CARBOHYDRATES FOR HYPOGLYCEMIA PO PRN (21:13)
[2019-09-29] MEDS: INSULIN ASPART 100 UNITS/ML 3 ML PEN SC SCH (22:13)
[2019-09-29] MEDS: INSULIN GLARGINE SOLOSTAR 100 UNITS/ML 3 ML PEN SC SCH (22:13)
[2019-09-29] MEDS: CALCITRIOL 0.25 MCG CAPSULE PO SCH (22:14)
[2019-09-29] MEDS: LORazepam 1 MG TAB PO SCH (22:14)
[2019-09-29] MEDS: DOCUSATE SODIUM 100 MG CAP PO SCH (22:14)
[2019-09-29] MEDS: MoRPHine SULFATE 2 MG/ML CARP IV PRN (22:49)
[2019-09-30] MEDS: IMIPENEM/CILASTATIN SODIUM 200 MG in DEXTROSE 5% 100 ML IV SCH ×3 (00:22→13:03)
[2019-09-30] MEDS: PHENAZOPYRIDINE HCL 100 MG TAB PO PRN ×2 (02:42→09:02)
[2019-09-30] MEDS: MoRPHine SULFATE 2 MG/ML CARP IV PRN (02:52)
[2019-09-30] MEDS ORDERED: LIDOCAINE 2% JELLY 5 ML TUBE EXT PRN (03:12)
[2019-09-30] MEDS: HYDROCORTISONE 10 MG TAB PO SCH ×3 (05:34→15:21)
[2019-09-30 07:07] LABS: Basophils # (auto) 0.02 K/uL (0-0.2); Basophils % (auto) 0.2 %; Eosinophils # (auto) 0.47 K/uL (0-0.5); Eosinophils % (auto) 4.9 %; Hematocrit (blood only) 32.6 % (42-52); Hemoglobin 9.5 g/dL (14.0-18.0); Immature Granulocytes # (auto) 0.02 K/uL (0.00-0.02); Immature Granulocytes % (auto) 0.2 %; Lymphocytes # (auto) 0.97 K/uL (1.2-3.4); Lymphocytes % (auto) 10.1 %; Mean Corpuscular Hemoglobin 23.8 pg (25-34); Mean Corpuscular Hgb Conc 29.1 g/dL (32-36); Mean Corpuscular Volume 81.7 fL (80-100); Mean Platelet Volume 9.5 fL (7.4-10.4); Monocytes # (auto) 0.76 K/uL (0.11-0.59); Monocytes % (auto) 7.9 %; Neutrophils # (auto) 7.33 K/uL (1.4-6.5); Neutrophils % (auto) 76.7 %; Platelet Count 251 K/uL (130-400); RDW Coefficient of Variation 19.8 % (11.5-14.5); Red Blood Count 3.99 M/uL (4.7-6.1); White Blood Count 9.57 K/uL (4.8-10.8)
[2019-09-30 07:57] LABS: BUN Creatinine Ratio 10.2 (10-20); Creatinine Clr Calc Pharmacy 15.3 ml/min; Est GFR (African American) 10.3; Est GFR (Non-African American) 8.9; Magnesium 1.7 mg/dl (1.8-2.4); Potassium 4.5 mmol/L (3.5-5.1)
[2019-09-30] MEDS: INSULIN ASPART 100 UNITS/ML 3 ML PEN SC SCH ×4 (09:00→20:59)
[2019-09-30] MEDS: AMIODARONE 200 MG TAB PO SCH (09:02)
[2019-09-30] MEDS: METOPROLOL SUCC 25MG EXT REL TAB PO SCH (09:02)
[2019-09-30] MEDS: INSULIN GLARGINE SOLOSTAR 100 UNITS/ML 3 ML PEN SC SCH ×2 (09:03→21:00)
[2019-09-30] MEDS: FLUDROCORTISONE ACETATE 0.1 MG TAB PO SCH (09:03)
[2019-09-30] MEDS: CHOLECALCIFEROL 1,000 UNITS 25 MCG TAB PO SCH (09:04)
[2019-09-30] MEDS: DOCUSATE SODIUM 100 MG CAP PO SCH ×2 (09:10→20:59)
[2019-09-30] MEDS: MAGNESIUM SULFATE / D5W 1 GM/100 ML BAG IV SCH ×2 (09:55→10:54)
--- NOTE | 2019-09-30 13:57 | Hospitalist Progress Note ---
Date of Service September 30, 2019 Assessment & Plan (1) UTI (urinary tract infection): Empiric coverage with Rocephin pending culture results. No fevers, no WBC count. Pt came to the ER for dysuria. Pyridium cannot be given because of his kidney function. (2) Chronic kidney disease, stage 4 (severe): Recent obstructive uropathy with worsening HECTOR. Right percutaneous nephrostomy tube placed in an effort to improve his renal function. HECTOR was l ikely multifactorial, secondary to hypotensive ATN from recent surgery, obstructive uropathy. His kidney function did slowly improve after placement of nephrostomy tube. Cr peaked at 6.3 on 09/17/2019. Outpatient labs on 09/21/2019: Cr: 4.5. But his renal function is worse now and hemodialysis is not an option at this point. Renal diet, renally dose meds and avoid any additional insults to kidneys such as contrast that are not life saving. Calcitriol (3) Metastatic malignant melanoma: History of metastasis to adrenal gland and bladder s/p radiation and surgery. Most recent bladder [place] 05/14/[address] [place] [facility] [place] Has follow-up with Dr. [place] [facility] [place] to further discuss palliative cystectomy and palliative options. Local oncologist has nothing else to offer at this time. (4) Tachy-oscar syndrome: S/P pacemaker 08/2019 (5) CHF (congestive heart failure): euvolemic, discontinue torsemide. Low salt diet, daily weights. (6) Paroxysmal atrial fibrillation: -Continue amiodarone, metoprolol -Not on Coumadin secondary to hematuria, anemia (7) Hypertension: cont holding amlodipine for now. BP controlled. (8) Adrenal insufficiency: -Continue fludrocortisone, hydrocortisone per home regimen. (9) Anemia: multifactorial and chronic, no indication for transfusion at this time. Cont to monitor. (10) Diabetes mellitus, type II: A1c: 6.0 on 09/10/2019 on insulin. BSG is at inpatient goal -Continue basal insulin, bolus insulin per protocol (11) Sleep apnea: -CPAP at bedtime (12) DVT prophylaxis: SCDs, no chemoprophy 2/2 intermittent hematuria and anemia DNR/DNI Dispo-possibly home tomorrow pending urine culture results. Rut Najera DO [facility] Hospitalist Admission and Anticipated Discharge Date Admission Date: September 29, 2019 Anticipated date of discharge: 10/01/19 Subjective The patient reports feeling somewhat depressed because he is in the hospital. He does state that he is still having dysuria. Unfortunately Pyridium had to be stopped as it is not recommended with his kidney function level. Nephrology saw him and will not be able to dialyze him. The patient is also concerned that Dr. Moore from [place] [facility] will not be able to do surgery on him. He is scheduled for a follow-up with him after the weekend. Otherwise the patient denies any fevers chills or other issues. He reports coming to the ER because of the pain. He is declining any medication at this time. Review of Systems Review of Systems: All systems reviewed & are unremarkable except as noted in Subjective Physical Exam Physical Exam: CONSTITUTIONAL: obese, vitals as above, generally well- appearing EYES: normal conjunctivae, no scleral icterus ENT: external ear and nose normal, oropharynx clear, MMM RESPIRATORY: clear to auscultation bilaterally, no crackles, rales or wheezes, normal respiratory effort CARDIOVASCULAR: regular rate and rhythm, S1 and 2 heard without murmurs, gallops or rubs, no JVD GASTROINTESTINAL: normal bowel sounds, soft, nontender, nondistended. Right nephrostomy tube in place on back. No surrounding erythema. MUSCULOSKELETAL: strength 5/5 throughout, head is normocephalic and atraumatic SKIN: warm and dry NEUROLOGIC: CN 2-12 grossly intact, no sensory deficit, normal cognition, normal speech, no gross focal deficits. PSYCHIATRIC: alert cooperative and oriented Results & Data ([facility]) Vital Signs (Past 12 Hours) Vital Signs Temp Pulse Pulse Resp BP Pulse Ox 09/30/19 11:12 36.7 C 95 H 20 127/73 91 09/30/19 07:38 36.6 C 108 H 20 151/69 H 93 09/30/19 07:30 106 H 09/30/19 03:45 36.7 C 93 H 18 109/66 91 Laboratory Results Short CBC 09/29/19 09/30/19 Range/Units 16:20 06:38 WBC 15.66 H 9.57 (4.8-10.8) K/uL Hgb 10.1 L 9.5 L (14.0-18.0) g/dL Hct 34.1 L 32.6 L (42-52) % Plt Count 254 251 (130-400) K/uL BMP 09/29/19 09/30/19 16:20 06:38 Sodium 134 L 136 Potassium 5.0 4.5 Chloride 103 102 Carbon Dioxide 20 L 22 BUN 53 H 59 H Creatinine 5.49 H* 5.83 H* D Glucose 117 H 100 H Calcium 9.2 9.0 Liver Function 09/29/19 Range/Units 16:20 Total Bilirubin 0.7 (0.2-1) mg/dl AST 21 (15-37) U/L ALT 15 (12-78) U/L Alkaline Phosphatase 80 (45-117) U/L Albumin 2.9 L (3.4-5.0) gm/dl Urine 09/29/19 09/29/19 Range/Units 17:30 17:30 Urine Color [place] Dark Yellow Urine Appearance Turbid A Turbid A (Clear) Urine pH 5.5 5.0 (4.5-7.5) Ur Specific [place] 1.019 1.017 (1.000-1.030) Urine Protein 3+ H 3+ H (Negative) Urine Glucose (UA) Negative Negative (Negative) Medications Administered Current Inpatient Medications Acetaminophen (Tylenol) 650 mg PO Q4H PRN PRN Reason: Pain or Fever Stop: 10/29/19 21:12 Amiodarone HCl (Cordarone) 200 mg PO QAM [facility] Stop: 10/30/19 08:59 Last Admin: 09/30/19 09:02 Dose: 200 mg Documented by: Calcitriol (Rocaltrol) 0.5 mcg PO HS RENZO Stop: 10/29/19 21:44 Last Admin: 09/29/19 22:14 Dose: 0.5 mcg Documented by: Dextrose (Dextrose 50%) 25 - 50 ml IV UD PRN; Protocol PRN Reason: Hypoglycemia Protocol Stop: 10/29/19 21:12 Docusate Sodium (Colace) 100 mg PO BID RENZO Stop: 10/29/19 21:44 Last Admin: 09/30/19 09:10 Dose: 100 mg Documented by: Fludrocortisone Acetate (Florinef) 0.1 mg PO QAM [facility] Stop: 10/30/19 08:59 Last Admin: 09/30/19 09:03 Dose: 0.1 mg Documented by: Glucagon (Glucagen) 1 mg SQ UD PRN; Protocol PRN Reason: Hypoglycemia Protocol Stop: 10/29/19 21:12 Glucose (Dex4 Glucose) 4 - 8 tabs PO UD PRN; Protocol PRN Reason: Hypoglycemia Protocol Stop: 10/29/19 21:12 Glucose (Glucose 40%) 15 - 30 gm PO UD PRN; Protocol PRN Reason: Hypoglycemia Protocol Stop: 10/29/19 21:12 Hydrocortisone (Cortef) 10 mg PO DAILY@1200,1500 [facility] Stop: 10/30/19 11:59 Last Admin: 09/30/19 13:01 Dose: 10 mg Documented by: Hydrocortisone (Cortef) 20 mg PO DAILY@0500 [facility] Stop: 10/30/19 04:59 Last Admin: 09/30/19 05:34 Dose: 20 mg Documented by: Ceftriaxone Sodium 2,000 mg/ (Dextrose) 70 mls @ 140 mls/hr IV Q24H [facility] Stop: 10/10/19 15:59 Insulin Aspart (Novolog Flexpen) 0 units SC ACHS [facility] Stop: 10/29/19 21:44 Last Admin: 09/30/19 12:59 Dose: 1 units Documented by: Insulin Glargine (Lantus Solostar Pen) 0 - 30 units SC BID [facility]; Protocol Stop: 10/29/19 21:44 Last Admin: 09/30/19 09:03 Dose: Not Given Documented by: Lidocaine HCl (Xylocaine 2% Jelly) 1 ml EXT BID PRN PRN Reason: Pain Stop: 10/30/19 08:59 Last Admin: 09/30/19 05:35 Dose: 1 ml Documented by: Lorazepam (Ativan) 1 mg PO HS [facility] Stop: 10/29/19 21:44 Last Admin: 09/29/19 22:14 Dose: 1 mg Documented by: Lorazepam (Ativan) 1 mg PO DAILY PRN PRN Reason: Anxiety Stop: 10/29/19 21:12 Metoprolol Succinate (Toprol Xl) 25 mg PO DAILY [facility] Stop: 10/30/19 08:59 Last Admin: 09/30/19 09:02 Dose: 25 mg Documented by: Miscellaneous (Carbohydrates For Hypoglycemia) 15 - 30 gm PO UD PRN PRN Reason: Hypoglycemia Protocol Stop: 10/29/19 21:12 Morphine Sulfate (Morphine Sulfate) 2 mg IV Q4H PRN PRN Reason: Pain Stop: 10/13/19 22:25 Last Admin: 09/30/19 02:52 Dose: 2 mg Documented by: Vitamin D (Vitamin D3) 1,000 units PO QAM [facility] Stop: 10/30/19 08:59 Last Admin: 09/30/19 09:04 Dose: 1,000 units Documented by: (1) CHF (congestive heart failure) Heart failure chronicity: unspecified Heart failure type: unspecified Qualified Code(s): I50.9 - Heart failure, unspecified (2) Anemia Anemia type: unspecified type Qualified Code(s): D64.9 - Anemia, unspecified
[2019-09-30] MEDS ORDERED: MICONAZOLE NITRATE POWDER 43 GM EXT PRN (14:37)
[2019-09-30] MEDS: cefTRIAXone SODIUM 2,000 MG in DEXTROSE 5% 50 ML IV SCH (16:29)
--- NOTE | 2019-09-30 17:15 | Nephrology Consultation ---
Date of Consultation September 30, 2019 Assessment & Plan (1) Acute on chronic renal failure: Patient with HECTOR on CKD due to multifactorial etiology including obstructive uropathy from bladder mass and ATN from recurrent UTI. Cr had improved to 4.5 after nephrostomy but now back up to 5.8. management is supportive. There is no indication for HD. Patient is not a candidate for HD due to advanced cancer -Daily BMP -Avoid nephrotoxins. -monitor input/out -Can give iv fluids for volume resuscitation as needed (2) UTI (urinary tract infection): Due to Gram negative rods. patient has had ESBL organisms in the past. he is appropriate antibiotics per primary team and ID. 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 Renal has been consulted for worsening renal function. He was admitted in Aug 2019 with obstructive uropathy, cr peak at 6. he was transferred [place] [facility] and had a nephrostomy tube with cr improving to 4.5 on 09/20. he follows with me in CKD clinic and was improving about a week ago when i saw him. Urine is growing G negative rods. he feels better with antibiotics. Cr was 5.4 yesterday and now 5.8. No SOB or leg swelling. Allergies Allergy/AdvReac Type Severity Reaction Status Date / Time perflutren AdvReac Intermediate GI SYMPTOMS Verified 09/29/19 16:55 propylene glycol AdvReac Intermediate GI SYMPTOMS Verified 09/29/19 16:55 simvastatin AdvReac Intermediate JOINT AND Verified 09/29/19 16:55 MUSCLE PAIN Home Medications Home Medications Medication Instructions Recorded Confirmed Type cholecalciferol (vitamin D3) 1,000 unit PO QAM 04/20/18 09/29/19 History [Vitamin D3] docusate sodium [Colace] 100 mg PO BID 04/20/18 09/29/19 History ondansetron HCl 4 mg tablet 4 mg PO Q8H PRN tab 08/10/18 09/29/19 History acetaminophen [Tylenol Extra 500 mg PO Q6H PRN 05/22/19 09/29/19 History Strength] methylprednisolone sodium succ 125 mg IM DIRECTED PRN 05/22/19 09/29/19 History triamcinolone acetonide 1 applic TOPICAL BID PRN 05/22/19 09/29/19 History Lantus Solostar U-100 Insulin 30 unit SC BID 07/02/19 09/29/19 History fludrocortisone 0.1 mg PO QAM 07/02/19 09/29/19 History hydrocortisone 10 mg PO DAILY@1200,1500 07/02/19 09/29/19 History hydrocortisone 20 mg PO DAILY@0500 07/02/19 09/29/19 History lorazepam 1 mg PO HS 07/02/19 09/29/19 History lorazepam 1 mg PO DAILY PRN 07/29/19 09/29/19 History amiodarone 200 mg PO QAM 08/17/19 09/29/19 History torsemide 20 mg PO QAM 08/17/19 09/29/19 History amlodipine [Norvasc] 5 mg PO QAM 08/25/19 09/29/19 History calcitriol 0.5 mcg PO HS 09/09/19 09/29/19 History metoprolol succinate 25 mg PO DAILY 09/29/19 09/29/19 History Patient History Medical History (Updated 09/29/19 @ 23:08 by Varinder Bloom MD) Adrenal insufficiency S/P LEFT ADRENALECTOMY- ON CHRONIC HYDROCORTISONE Anxiety (Chronic) Cardiomyopathy (Chronic) Chronic kidney disease, stage 4 (severe) Degenerative disc disease (Chronic) Diabetes mellitus, type II Dyslipidemia (Chronic) H/O transfusion of packed red blood cells S/P 2 UNITS (2016) History of immunotherapy (Chronic) Keytruda x 2 Cycles (had to stop after 2nd cycle) Current Opdivo q 2 weeks (currently on hold) - started 05/2017 - 04/2018 Hypertension Metastatic malignant melanoma Morbid obesity (Chronic) Sleep apnea CPAP HS Surgical History (Updated 09/29/19 @ 23:08 by Varinder Bloom MD) History of colonoscopy 2016 History of esophagogastroduodenoscopy (EGD) 2017 History of tooth extraction Hx of cystoscopy 05/05/18 - BLADDER TUMOR EXCISION Hx of total adrenalectomy LEFT SIDE-- HX B/L ADRENAL MASSES; UNDERWENT LAP LEFT ADRENAL MASS EXCISION 04/14/17; PATHOLOGY METASTATIC MALIGNANT MELANOMA WITH VASCULAR INVASION Nephrostomy status (Acute) Family History Father No problems noted. Mother Colon cancer, Onset Age: 85 Chemo and Resection - Alive and well now Sister Breast cancer, Onset Age: 55 Had Radiation - Alive and well now Sister No problems noted. Sister No problems noted. Sister No problems noted. Sister No problems noted. Brother No problems noted. Son No problems noted. Son No problems noted. Social History Preferred Language: Sammarinese Communication Ability: Effective Visual Impairment: Limited Hearing Ability: Hard of Hearing [employer] Member Required: No Beliefs That Will Affect Care: None marital status: Single Current Living Situation: Significant Other current occupational status: retired current occupation: Retired - [employer] Feels Safe at Home: Yes Safety Concerns: Feels Safe At This Time Smoking Status: Never smoker Tobacco Type: smokeless tobacco ; Second Hand Exposure: No ; Hx Alcohol Use: No Hx Substance Use: No caffeine: Yes (2 cups of coffee/day ) during the past year weight has: remained stable Review of Systems Review of Systems: All systems reviewed & are unremarkable except as noted in HPI & below Physical Exam Physical Exam: General exam: Appears comfortable, no acute distress HEENT: Pupils are equal and reactive to light Neck: No JVD, neck is supple trachea is midline Respiratory system: Clear breath sounds bilaterally. Gastrointestinal: Abdomen is soft, non distended, non tender, bowel sounds are present CVS: Regular rate and rhythm. No murmurs, rubs or gallops Musculoskeletal: No joint or muscle tenderness Extremities: Non tender, no edema, peripheral pulses are present Neuro: Oriented, no tremors, no focal neurological deficits Skin: No rashes Results & Data Vital Signs (Past 12 Hours) Vital Signs Temp Pulse Pulse Resp BP Pulse Ox 09/30/19 15:30 37.3 C 69 18 124/71 92 09/30/19 11:12 36.7 C 95 H 20 127/73 91 09/30/19 07:38 36.6 C 108 H 20 151/69 H 93 09/30/19 07:30 106 H Laboratory Results 09/30/19 06:38 09/29/19 09/30/19 09/30/19 16:20 06:38 06:38 WBC 9.57 RBC 3.99 L MCV 81.7 MCH 23.8 L MCHC 29.1 L RDW Std Deviation 60.0 H RDW Coeff of Scottie 19.8 H Plt Count 251 MPV 9.5 Phosphorus 5.0 H Albumin 2.9 L (1) Acute on chronic renal failure Chronic kidney disease stage: stage 4 (severe)
[2019-09-30] MEDS: LORazepam 1 MG TAB PO SCH (20:59)
[2019-09-30] MEDS: CALCITRIOL 0.25 MCG CAPSULE PO SCH (21:01)
[2019-10-01] MEDS: MoRPHine SULFATE 2 MG/ML CARP IV PRN (04:02)
[2019-10-01] MEDS: HYDROCORTISONE 10 MG TAB PO SCH ×3 (06:16→16:02)
[2019-10-01 06:56] LABS: BUN Creatinine Ratio 11.3 (10-20); Calcium 9.2 mg/dl (8.5-10.1); Creatinine Clr Calc Pharmacy 15.7 ml/min; Est GFR (African American) 10.6; Est GFR (Non-African American) 9.1; Magnesium 2.5 mg/dl (1.8-2.4); Phosphorus 4.9 mg/dl (2.5-4.9); Potassium 4.6 mmol/L (3.5-5.1)
[2019-10-01] MEDS: INSULIN ASPART 100 UNITS/ML 3 ML PEN SC SCH ×4 (08:21→21:12)
[2019-10-01] MEDS: CHOLECALCIFEROL 1,000 UNITS 25 MCG TAB PO SCH (08:22)
[2019-10-01] MEDS: METOPROLOL SUCC 25MG EXT REL TAB PO SCH (08:22)
[2019-10-01] MEDS: FLUDROCORTISONE ACETATE 0.1 MG TAB PO SCH (08:22)
[2019-10-01] MEDS: AMIODARONE 200 MG TAB PO SCH (08:23)
[2019-10-01] MEDS: INSULIN GLARGINE SOLOSTAR 100 UNITS/ML 3 ML PEN SC SCH ×2 (08:23→21:12)
[2019-10-01] MEDS: DOCUSATE SODIUM 100 MG CAP PO SCH ×2 (08:23→21:10)
--- NOTE | 2019-10-01 14:20 | Hospitalist Progress Note ---
Date of Service October 01, 2019 Assessment & Plan (1) UTI (urinary tract infection): Empiric coverage with Rocephin pending culture results. No fevers, no WBC count. Pt came to the ER for dysuria. Pyridium cannot be given because of his kidney function. More evident this is moreso urethral pain possibly secondary to his recent Bang catheter and trauma from this. His pain reportedly got worse when he was started on torsemide again, increasing his UOP. He has now been off torsemide again which has probably helped the pain somewhat. Lidocaine jelly for now with repeat administration if needed. Bladder scan reveals 250cc in bladder and patient is incontinent. Hold on belladonna supp unless severe pain that is not improved with the lidocaine jelly. (2) Chronic kidney disease, stage 4 (severe): Recent obstructive uropathy with worsening HECTOR. Right percutaneous nephrostomy tube placed in an effort to improve his renal function. HECTOR was likely multifactorial, secondary to hypotensive ATN from recent surgery, obstructive uropathy. His kidney function did slowly improve after placement of nephrostomy tube. Cr peaked at 6.3 on 09/17/2019. Outpatient labs on 09/21/2019: Cr: 4.5. But his renal function is worse now and hemodialysis is not an option at this point. Renal diet, renally dose meds and avoid any additional insults to kidneys such as contrast that are not life saving. Calcitriol (3) Metastatic malignant melanoma: History of metastasis to adrenal gland and bladder s/p radiation and surgery. Most recent bladder resection on 05/14/[address] Moore at [facility] [place] Has follow-up with Dr. Moore at [facility] [place] on 10/03/2019 to further discuss palliative cystectomy and palliative options. Local oncologist has nothing else to offer at this time. 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 Low salt diet, daily weights. (6) Paroxysmal atrial fibrillation: -Continue amiodarone, metoprolol -Not on Coumadin secondary to hematuria, anemia (7) Hypertension: cont holding amlodipine for now. BP controlled. (8) Adrenal insufficiency: -Continue fludrocortisone, hydrocortisone per home regimen. (9) Anemia: multifactorial and chronic, no indication for transfusion at this time. Cont to monitor. (10) Diabetes mellitus, type II: A1c: 6.0 on 09/10/2019 on insulin. BSG is at inpatient goal -Continue basal insulin, bolus insulin per protocol (11) Sleep apnea: -CPAP at bedtime (12) DVT prophylaxis: SCDs, no chemoprophy 2/2 intermittent hematuria and anemia DNR/DNI Dispo-possibly home tomorrow pending urine culture results. [facility] Admission and Anticipated Discharge Date Admission Date: September 29, 2019 Anticipated date of discharge: 10/01/19 Subjective Still reporting intermittent pain localized to his penis. Feels somewhat better on abx. Small urine flow through urethra after diversion to nephrostomy bag. Remains afebrile and tolerating PO. Very physically deconditioned because of prolonged frequent hospitalizations recently. Feels somewhat sad about being in the hospital again. Discussed options with Urologist litigation legal assistant including lidocaine jelly, belladonna supp, and possibility of AUR. Review of Systems Review of Systems: All systems reviewed & are unremarkable except as noted in Subjective Physical Exam Physical Exam: CONSTITUTIONAL: obese, vitals as above, generally well- appearing EYES: normal conjunctivae, no scleral icterus ENT: external ear and nose normal, oropharynx clear, MMM RESPIRATORY: clear to auscultation bilaterally, no crackles, rales or wheezes, normal respiratory effort CARDIOVASCULAR: regular rate and rhythm, S1 and 2 heard without murmurs, gallops or rubs, no JVD GASTROINTESTINAL: normal bowel sounds, soft, nontender, nondistended. Right nephrostomy tube in place on back. No surrounding erythema. MUSCULOSKELETAL: strength 5/5 throughout, head is normocephalic and atraumatic SKIN: warm and dry NEUROLOGIC: CN 2-12 grossly intact, no sensory deficit, normal cognition, normal speech, no gross focal deficits. PSYCHIATRIC: alert cooperative and oriented Results & Data ([facility]) Vital Signs (Past 12 Hours) Vital Signs Temp Pulse Pulse Resp BP BP Pulse Ox 10/01/19 11:27 36.6 C 70 18 120/70 96 10/01/19 07:37 36.4 C L 73 18 123/70 94 10/01/19 07:16 71 10/01/19 04:00 36.6 C 83 20 121/70 94 Laboratory Results BMP 10/01/19 05:31 Sodium 133 L Potassium 4.6 Chloride 101 Carbon Dioxide 23 BUN 64 H Creatinine 5.69 H* Glucose 97 Calcium 9.2 Medications Administered Current Inpatient Medications Acetaminophen (Tylenol) 650 mg PO Q4H PRN PRN Reason: Pain or Fever Stop: 10/29/19 21:12 Amiodarone HCl (Cordarone) 200 mg PO QAM [facility] Stop: 10/30/19 08:59 Last Admin: 10/01/19 08:23 Dose: 200 mg Documented by: Calcitriol (Rocaltrol) 0.5 mcg PO HS [facility]ZO Stop: 10/29/19 21:44 Last Admin: 09/30/19 21:01 Dose: 0.5 mcg Documented by: Dextrose (Dextrose 50%) 25 - 50 ml IV UD PRN; Protocol PRN Reason: Hypoglycemia Protocol Stop: 10/29/19 21:12 Docusate Sodium (Colace) 100 mg PO BID [facility] Stop: 10/29/19 21:44 Last Admin: 10/01/19 08:23 Dose: 100 mg Documented by: Fludrocortisone [facility] (Florinef) [facility] Stop: 10/30/19 08:59 Last Admin: 10/01/19 08:22 Dose: 0.1 mg Documented by: Glucagon (Glucagen) 1 mg SQ UD PRN; Protocol PRN Reason: Hypoglycemia Protocol Stop: 10/29/19 21:12 Glucose (Dex4 Glucose) 4 - 8 tabs PO UD PRN; Protocol PRN Reason: Hypoglycemia Protocol Stop: 10/29/19 21:12 Glucose (Glucose 40%) 15 - 30 gm PO UD PRN; Protocol PRN Reason: Hypoglycemia Protocol Stop: 10/29/19 21:12 Hydrocortisone (Cortef) 10 mg PO DAILY@1200,1500 [facility] Stop: 10/30/19 11:59 Last Admin: 10/01/19 12:21 Dose: 10 mg Documented by: Hydrocortisone (Cortef) 20 mg PO DAILY@0500 [facility] Stop: 10/30/19 04:59 Last Admin: 10/01/19 06:16 Dose: 20 mg Documented by: Ceftriaxone Sodium 2,000 mg/ (Dextrose) 70 mls @ 140 mls/hr IV Q24H [facility] Stop: 10/10/19 15:59 Last Infusion: 09/30/19 17:55 Dose: Infused Documented by: Insulin Aspart (Novolog Flexpen) 0 units SC ACHS [facility] Stop: 10/29/19 21:44 Last Admin: 10/01/19 12:20 Dose: 5 units Documented by: Insulin Glargine (Lantus Solostar Pen) 0 - 30 units SC BID [facility]; Protocol Stop: 10/29/19 21:44 Last Admin: 10/01/19 08:23 Dose: 15 units Documented by: Lidocaine HCl (Xylocaine 2% Jelly) 1 ml EXT BID PRN PRN Reason: Pain Stop: 10/30/19 08:59 Last Admin: 09/30/19 05:35 Dose: 1 ml Documented by: Lorazepam (Ativan) 1 mg PO HS [facility] Stop: 10/29/19 21:44 Last Admin: 09/30/19 20:59 Dose: 1 mg Documented by: Lorazepam (Ativan) 1 mg PO DAILY PRN PRN Reason: Anxiety Stop: 10/29/19 21:12 Metoprolol Succinate (Toprol Xl) 25 mg PO DAILY [facility] Stop: 10/30/19 08:59 Last Admin: 10/01/19 08:22 Dose: 25 mg Documented by: Miconazole Nitrate (Desenex) 1 appln EXT PRN PRN PRN Reason: Affected Skin Folds Stop: 10/30/19 14:36 Last Admin: 09/30/19 20:58 Dose: 1 appln Documented by: Miscellaneous (Carbohydrates For Hypoglycemia) 15 - 30 gm PO UD PRN PRN Reason: Hypoglycemia Protocol Stop: 10/29/19 21:12 Morphine Sulfate (Morphine Sulfate) 2 mg IV Q4H PRN PRN Reason: Pain Stop: 10/13/19 22:25 Last Admin: 10/01/19 04:02 Dose: 2 mg Documented by: Vitamin D (Vitamin D3) 1,000 units PO QAM [facility] Stop: 10/30/19 08:59 Last Admin: 10/01/19 08:22 Dose: 1,000 units Documented by: (1) CHF (congestive heart failure) Heart failure chronicity: unspecified Heart failure type: unspecified Qualified Code(s): I50.9 - Heart failure, unspecified (2) Anemia Anemia type: unspecified type Qualified Code(s): D64.9 - Anemia, unspecified
[2019-10-01] MEDS: cefTRIAXone SODIUM 2,000 MG in DEXTROSE 5% 50 ML IV SCH (16:07)
[2019-10-01] MEDS ORDERED: LIDOCAINE 2% JELLY 5 ML TUBE EXT ONE (16:45)
--- NOTE | 2019-10-01 19:04 | Nephrology Progress Note ---
Date of Service October 01, 2019 Assessment & Plan (1) Acute on chronic renal failure: Patient with HECTOR on rapidly progressive CKD due to multifactorial etiology including obstructive uropathy from bladder mass and ATN from recurrent UTI. Cr had improved to 4.5 after nephrostomy but now back up to and plateaued at 5.8. management is supportive. There is no indication for HD. Patient is not a candidate for HD due to advanced cancer -Daily BMP -Avoid nephrotoxins. -monitor input/out -Can give iv fluids for volume resuscitation as needed but he does not appear to need that at this time -f/u appt w/ Dr Moore noted for 10/02 (2) UTI (urinary tract infection): Due to Gram negative rods. patient has had ESBL organisms in the past. he is appropriate antibiotics per primary team and ID. Renally dose antibiotics for GFR less than 15ml/min; f/u pending blood cxs Admission and Anticipated Discharge Date Admission Date: September 29, 2019 Anticipated date of discharge: 10/01/19 Subjective Seen on rounds this afternoon. No particular complaints. 8 good lunch. No nausea vomiting. No shortness of breath or edema. no Confusion. Review of Systems Review of Systems: All systems reviewed & are unremarkable except as noted in HPI & below Physical Exam Constitutional: well developed, + obese and cooperative; no acute distress sitting in bed on Ra Eyes: EOM intact bilaterally ENMT: Ears: no external ear abnormality Nose: no external nose abnormality Mouth: + dry oral mucous membranes Neck: no nuchal rigidity Respiratory: normal respiratory effort Auscultation: + diminished lung sounds Cardiovascular: RRR, no murmur, no edema Gastrointestinal (Abdomen): Inspection/Auscultation: normal bowel sounds Percussion/Palpation: abdomen soft; abdomen nontender Musculoskeletal: Extremities: strength 5/5 throughout Skin: no rashes, warm and dry Neurologic: comer, fluent speech, no tremor Psychiatric: A+Ox3, euthymic affect Genitourinary: Nephrostomy tube reining clear yellow urine Results & Data ([facility]) Vital Signs (Past 12 Hours) Vital Signs Temp Pulse Pulse Resp BP BP Pulse Ox 10/01/19 15:13 36.5 C 75 18 101/60 96 10/01/19 11:27 36.6 C 70 18 120/70 96 10/01/19 07:37 36.4 C L 73 18 123/70 94 03/14/20 07:16 71 Laboratory Results 09/30/19 06:38 10/01/19 05:31 (1) Acute on chronic renal failure Chronic kidney disease stage: stage 4 (severe)
[2019-10-01] MEDS: CALCITRIOL 0.25 MCG CAPSULE PO SCH (21:10)
[2019-10-01] MEDS: LORazepam 1 MG TAB PO SCH (21:10)
[2019-10-02] MEDS ORDERED: LIDOCAINE 2% JELLY 5 ML TUBE EXT PRN (04:30)
[2019-10-02] MEDS: HYDROCORTISONE 10 MG TAB PO SCH ×3 (04:52→15:42)
[2019-10-02] MEDS: FLUDROCORTISONE ACETATE 0.1 MG TAB PO SCH (08:24)
[2019-10-02] MEDS: CHOLECALCIFEROL 1,000 UNITS 25 MCG TAB PO SCH (08:25)
[2019-10-02] MEDS: DOCUSATE SODIUM 100 MG CAP PO SCH (08:25)
[2019-10-02] MEDS: METOPROLOL SUCC 25MG EXT REL TAB PO SCH (08:25)
[2019-10-02] MEDS: AMIODARONE 200 MG TAB PO SCH (08:25)
[2019-10-02] MEDS: INSULIN GLARGINE SOLOSTAR 100 UNITS/ML 3 ML PEN SC SCH (08:31)
[2019-10-02] MEDS: INSULIN ASPART 100 UNITS/ML 3 ML PEN SC SCH ×3 (08:36→17:48)
--- NOTE | 2019-10-02 13:14 | Nephrology Progress Note ---
Date of Service October 02, 2019 Assessment & Plan (1) Acute on chronic renal failure: Patient with HECTOR on rapidly progressive CKD due to multifactorial etiology including obstructive uropathy from bladder mass and ATN from recurrent UTI. Cr had improved to 4.5 after nephrostomy but now back up to and plateaued yesterday at 5.8. No labs today and none indicated. Management is supportive. There is no indication for HD. Patient is not a candidate for HD due to advanced cancer -Every 48 hour basic metabolic panel when in-house -Avoid nephrotoxins. -monitor input/out -Can give iv fluids for volume resuscitation as needed but he does not appear to need that at this time -f/u appt w/ Dr Moore noted for 10/02 -care coordinated w/ Dr Najera; will sign off; pls call if ? Discharge recommendations (discharge summary has been updated): Weekly basic metabolic panel to be ordered by nephrology for home draw if possible and if not then for clinic draw x3 weeks every For now keep November [address] Cuevas in CKD clinic >> Discharge on torsemide 20 mg Thursday, not daily 20 mg as he was taking prior to admission >>No need at this time to take amlodipine after discharge (2) UTI (urinary tract infection): Due to Enterobacter cloacae--may be able to discharge on oral fluoroquinolone; defer to primary service. Renally dose antibiotics for GFR less than 15ml/min; f/u pending blood cxs Admission and Anticipated Discharge Date Admission Date: September 29, 2019 Anticipated date of discharge: 10/01/19 Subjective Sitting up in chair, denies abdominal or chest pain, pain at the nephrostomy site, edema, shortness of breath, decreased oral intake, nausea or vomiting. Waiting eagerly to hear whether he will need IV or oral antibiotics after discharge. Review of Systems Review of Systems: All systems reviewed & are unremarkable except as noted in HPI & below Physical Exam Constitutional: well developed, + obese and cooperative; no acute distress On room air Eyes: EOM intact bilaterally ENMT: Ears: no external ear abnormality Nose: no external nose abnormality Mouth: + dry oral mucous membranes Neck: no nuchal rigidity Respiratory: normal respiratory effort Auscultation: + diminished lung sounds Cardiovascular: RRR, no murmur, no edema Gastrointestinal (Abdomen): Inspection/Auscultation: normal bowel sounds Percussion/Palpation: abdomen soft; abdomen nontender Musculoskeletal: Extremities: strength 5/5 throughout Skin: no rashes, warm and dry Psychiatric: A+Ox3, euthymic affect Genitourinary: Right flank nephrostomy bag with light yellow urine Results & Data ([facility]) Vital Signs (Past 12 Hours) Vital Signs Temp Pulse Resp BP Pulse Ox 10/02/19 07:09 36.6 C 70 18 138/76 94 (1) Acute on chronic renal failure Chronic kidney disease stage: stage 4 (severe)
[2019-10-02 15:21] VITALS: PULSE 72; TEMP 97.5; O2SAT 97
[2019-10-02] MEDS: cefTRIAXone SODIUM 2,000 MG in DEXTROSE 5% 50 ML IV SCH (15:37)
--- NOTE | 2019-10-02 17:25 | Discharge Summary ---
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 Patient reports continued intermittent hematuria however denies any increased hematuria. Has been feeling cold however denies any fever. Patient states he thought initially that his increased urinary frequency was secondary to torsemide however he then developed dysuria. Home health reports patient's weight was 307 pounds on 09/20/2019 and down to 285 pounds on 09/29/2019. Patient reports that he has noticed significant decreased BLE edema over the past week. Denies nausea, vomiting, diaphoresis, N/V/D/C, LIANG, dizziness, syncope, vision changes, neck pain, CP, SOB, orthopnea, palpitations, cough, sore throat, choking, otalgia, rhinorrhea, abdominal pain, flank pain, paresthesias, weakness, rashes. Patient with recent hospitalization at [facility] 09/10/2019-09/15/2019 for acute on chronic CKD IV, obstructive uropathy, gross hematuria, tachybradycardia syndrome s/p pacemaker 09/12/2019 and was transferred to [place] 09/15/2019-09/19/2019. During that admission Bang placement did not improve kidney function and a renal ultrasound was performed which showed mild right hydronephrosis. Right percutaneous nephrostomy tube placed and patient continued to have minimal improvement of renal function after the procedure. HECTOR was likely multifactorial, secondary to hypotensive ATN from recent surgery, obstructive uropathy. His kidney function did slowly improve after placement of nephrostomy tube and was discharged home on 09/19/2019. There was discussion on palliative cystectomy and patient has follow-up with Dr. Moore at [facility] on 10/03/2019 to further discuss. Creatinine had peaked at 6.3 on 09/17/2019. Outpatient labs on 09/21/2019: Creatinine 4.5. Patient was taken off of gabapentin and pramipexole secondary to CKD. Follow-up with cardiology in 09/21/2019. His amlodipine was decreased from 10 mg to 5 mg daily. Toprol 25 mg daily was restarted. Admission Exam Per Admitting Provider General: no acute distress, chronic ill appearing, obese Head: normocephalic, atraumatic Eyes: PERRL, EOM's intact, conjunctiva non-injected, anicteric ENT: normal inspection external ears, nose, mucous membranes moist Neck: supple, trachea midline Lungs: clear, no respiratory distress, no wheezing/rhonchi/rales CV: RRR, no murmur, no pretibial edema Abd: normal BS, protuberant, soft, non-tender; Right CVA with nephrostomy tube in place draining yellow cloudy urine Ext: no cyanosis, no calf tenderness Neuro: A&O x 3, no focal deficits noted, normal affect Skin: warm, dry Principal Diagnosis Acute complicated urinary tract infection 2/2 Enterobacter cloacae Acute on chronic renal failure Metastatic malignant melanoma Discharge Data Allergies Allergy/AdvReac Type Severity Reaction Status Date / Time perflutren AdvReac Intermediate GI SYMPTOMS Verified 09/29/19 16:55 propylene glycol AdvReac Intermediate GI SYMPTOMS Verified 09/29/19 16:55 simvastatin AdvReac Intermediate JOINT AND Verified 09/29/19 16:55 MUSCLE PAIN Consultations 09/29/19 18:50 ED Decision to Admit Stat 09/29/19 21:13 Consult Case Management - Discharge Planning Routine Consult Nephrology Routine 09/30/19 08:00 Consult Urology Routine Ordered Studies 09/29/19 15:40 CT abd pelvis wo con Stat Hospital Course (1) UTI (urinary tract infection): Empiric coverage with Primaxin which was not able to be continued because of his renal function. This was switched to Rocephin , however, his culture resulted an Enterobacter cloacae that was resistant to Rocephin. He was switched to Cipro after review of the culture and sensitivity results with ID. He had no fevers and no WBC count. He had dysuria, however, Pyridium could not be given because of his kidney function. He did report urethral pain possibly secondary to his recent Bang catheter and trauma which was treated with lidocaine jelly. He was treated with a prolonged course of antibiotics based on the presence of a nephrostomy tube which made this a complicated UTI. (2) Chronic kidney disease, stage 4 (severe): Recent obstructive uropathy with worsening HECTOR. Right percutaneous nephrostomy tube placed in an effort to improve his renal function. HECTOR was likely multifactorial, secondary to hypotensive ATN from recent surgery, obstructive uropathy. His kidney function did slowly improve after placement of nephrostomy tube. Cr peaked at 6.3 on 09/17/2019. Outpatient labs on 09/21/2019: Cr: 4.5. But his renal function is worse now and hemodialysis is not an option at this point. Nephrology had this discussion with him during this admission. He was continued on calcitriol and close Nephrology followup was recommended with weekly labwork requested as described in the discharge instructions. (3) Metastatic malignant melanoma: A history of metastatic melanoma with known mets to the bladder and adrenal gland status post chemo, radiation and surgery with most recent bladder resection on 05/12/[address] Moore at [facility] presented with burning with urination. Under the care of Dr Culp in Oncology. Total Time Total Time Spent Total Time Spent (In Minutes): 60 Total Time Includes: Examination of the Patient, Discharge Planning, Medication Reconciliation and Communication With Other Providers Discharge Plan Discharge Items Patient Disposition: Home - Home Health Services Reason For Visit: UTI Discharge Diagnosis: Acute complicated urinary tract infection 2/2 Enterobacter cloacae Acute on chronic renal failure Metastatic malignant melanoma physical deconditioning Condition on Discharge: Good Activity: Resume your previous activity Non-emergency contact: Primary Care Provider Call non-emergency contact if: you have any medication questions, your symptoms worsen and your pain is not controlled Follow-up/Referrals: Prasad Mcguire, [Primary Care Provider] - 10/05/19 9:30 am (Please call [phone] if you need to reschedule this appointment. Please arrive for your appointment by 9:15) Diet: Carb Consistent or DM2, Dialysis Renal and Low Sodium (2gm) Addtl Attending Provider Instructions: Please take all medications as instructed on discharge list below. Please take entire antibiotic course as prescribed It is recommended that you follow-up with your primary care doctor within 1 week. This will be important to monitor blood work while on long-term antibiotics. An EKG may also be considered to monitor your heart rhythm and QT interval. There were additional recommendations by Nephrology, who saw you during your hospital stay including a weekly BASIC METABOLIC PANEL to be drawn every with results copied to Dr. Randee Rosa. It is recommended that you keep your current appointment in the CKD clinic with Dr. Cuevas on November 20 Please follow-up with urology in [facility] as scheduled. It was a pleasure taking care of you! Please call if you have any questions or problems. You can reach a [facility] 24 hours a day by calling [phone]. Take care of yourself. Rut Najera, [facility] Addtl Supervisor [place] Provider Instructions: Weekly basic metabolic panel to be ordered by nephrology for home draw if possible and if not then for clinic draw x 3 weeks every For now keep November [address] Cuevas in kidney clinic >> Discharge on torsemide 20 mg orally Thursday, not daily 20 mg as patient was taking prior to admission >>No need at this time to take amlodipine after discharge Pending Studies at Discharge: No Stand-Alone Forms: My [facility], Smoking Cessation Medications and DC Order Prescriptions: New torsemide 20 mg tablet 20 mg PO MOWEFR@0900 Qty: 30 RF: 1 ciprofloxacin HCl [Cipro] 500 mg tablet 500 mg PO DAILY Qty: 14 RF: 0 Continued ondansetron HCl 4 mg tablet 4 mg PO Q8H PRN (Reason: Nausea) RF: 0 docusate sodium [Colace] 100 mg Capsule 100 mg PO BID RF: 0 cholecalciferol (vitamin D3) [Vitamin D3] 1,000 unit Capsule 1,000 unit PO QAM RF: 0 acetaminophen [Tylenol Extra Strength] 500 mg Tablet 500 mg PO Q6H PRN (Reason: Pain) RF: 0 triamcinolone acetonide 0.1 % Cream 1 applic TOPICAL BID PRN (Reason: Rash) RF: 0 methylprednisolone sodium succ 125 mg Recon Soln 125 mg IM DIRECTED PRN (Reason: EMERGENCY CASE) RF: 0 amiodarone 200 mg tablet 200 mg PO QAM RF: 0 hydrocortisone 10 mg tablet 10 mg PO DAILY@1200,1500 RF: 0 hydrocortisone 10 mg tablet 20 mg PO DAILY@0500 RF: 0 fludrocortisone 0.1 mg tablet 0.1 mg PO QAM RF: 0 lorazepam 1 mg Tablet 1 mg PO HS RF: 0 Lantus Solostar U-100 Insulin 100 unit/mL (3 mL) insulin pen 30 unit SC BID RF: 0 lorazepam 1 mg tablet 1 mg PO DAILY PRN (Reason: Anxiety) RF: 0 calcitriol 0.5 mcg capsule 0.5 mcg PO HS RF: 0 metoprolol succinate 25 mg Tablet Extended Release 24 Hr 25 mg PO DAILY RF: 0 Discontinued torsemide 20 mg tablet 20 mg PO QAM RF: 0 amlodipine [Norvasc] 10 mg tablet 5 mg PO QAM RF: 0 Discharge Orders: Discharge Order (Routine); Ordered 10/02/19 Ordered By: Rut Najera Admission Data Admit Date/Time: 09/29/19 19:26 Attending Provider: Rut Najera Admit Provider: Eric Raygoza Primary Care Provider: Prasad Mcguire Other Providers: [facility],Home Healthcare ; Eric Raygoza ; Dereje Cuevas ; Radha Wolf Other Interventions: Discharge Summary Assessment (RN) Last Done: 10/02/19 17:53 DC Date/Time DO NOT enter until pt leaves facility: 10/02/19 18:42
[2019-10-02 17:54] VITALS: BP 138/76
== END 2019-10-02 18:42 | disposition home health service (06) | DRG 698 ==
LOC: ED 14:44 → SUATTDRO 19:26 → 2N 19:26 → 4W 10-01 19:15

== ENCOUNTER 2019-11-26 12:23 | Inpatient (IN) ==
[2019-11-26] MEDS ORDERED: ACETAMINOPHEN 1,000 MG/100 ML VIAL IV STA (12:52)
[2019-11-26] MEDS ORDERED: SODIUM CHLORIDE 0.9% 1000ML 1,000 ML IV ONE ×4 (12:52→17:43)
[2019-11-26] MEDS ORDERED: FAMOTIDINE 20MG IV PUSH 20 MG/5 ML SYR IV STA (12:53)
--- NOTE | 2019-11-26 13:07 | XRay Report ---
XR chest 1V portable CLINICAL HISTORY: 74 years-old Male presenting with SEPSIS. TECHNIQUE: Portable upright AP view of the chest was obtained. COMPARISON: 09/13/2019. FINDINGS: Left subclavian pacer with leads to the right atrium and right ventricular apex. Surgical clips noted in the right axilla. Atherosclerosis of the aortic arch. Cardiac silhouette normal in size. Slight a symmetric density of the lungs with more radiolucency on the right. This appearance is similar to tim or. This may relate to differential overlapping soft tissues. No focal opacity. No large effusion or pneumothorax. Degenerative changes of the thoracic spine. Upper abdomen normal. IMPRESSION: 1. No acute cardiopulmonary disease. ACT 112: Negative or not required by law. Electronically signed by: Seven Ponce M.D. 11/26/2019 1:06 PM
[2019-11-26 13:31] LABS: iSTAT Creatinine 7.4 mg/dl (0.6-1.3); iSTAT Hemoglobin 12.9 g/dl (14.0-18.0); iSTAT Ionized Calcium 1.03 mmol/l (1.12-1.32); iSTAT Potassium 5.2 mmol/L (3.3-5.0)
[2019-11-26 13:46] LABS: Basophils # (auto) 0.02 K/uL (0-0.2); Basophils % (auto) 0.2 %; Eosinophils # (auto) 0.12 K/uL (0-0.5); Hematocrit (blood only) 34.6 % (42-52); Hemoglobin 10.7 g/dL (14.0-18.0); Immature Granulocytes # (auto) 0.04 K/uL (0.00-0.02); Immature Granulocytes % (auto) 0.3 %; Lymphocytes # (auto) 1.13 K/uL (1.2-3.4); Lymphocytes % (auto) 9.2 %; Mean Corpuscular Hemoglobin 25.1 pg (25-34); Mean Corpuscular Hgb Conc 30.9 g/dL (32-36); Mean Platelet Volume 9.7 fL (7.4-10.4); Monocytes # (auto) 1.26 K/uL (0.11-0.59); Monocytes % (auto) 10.3 %; Platelet Count 313 K/uL (130-400); RDW Coefficient of Variation 17.7 % (11.5-14.5); RDW Standard Deviation 52.6 fL (36.4-46.3); Red Blood Count 4.27 M/uL (4.7-6.1); White Blood Count 12.27 K/uL (4.8-10.8)
[2019-11-26] MEDS ORDERED: HYDROCORTISONE SOD SUCCINATE 100 MG/2 ML VIAL IV STA (13:55)
[2019-11-26 13:58] LABS: INR 1.2 (0.9-1.1); Partial Thromboplastin Ratio 1.5; Partial Thromboplastin Time 41.2 Seconds (21.0-31.0); Prothrombin Time 12.6 Seconds (9.0-12.0)
[2019-11-26] MEDS ORDERED: ERTAPENEM SODIUM 500 MG in SODIUM CHLORIDE 0.9% 50 ML IV STA (14:12)
[2019-11-26] MEDS ORDERED: DAPTOmycin 525 MG in SYRINGE 0 ML IV STA (14:13)
[2019-11-26 14:24] LABS: Alanine Aminotransferase 20 U/L (12-78); Albumin Globulin Ratio 0.6 (0.9-2); Albumin Level 2.4 gm/dl (3.4-5.0); Alkaline Phosphatase 88 U/L (45-117); Aspartate Aminotransferase 17 U/L (15-37); BUN Creatinine Ratio 7.5 (10-20); Blood Urea Nitrogen 53 mg/dl (7-18); Calcium 8.7 mg/dl (8.5-10.1); Carbon Dioxide 24 mmol/L (21-32); Chloride 96 mmol/L (98-107); Creatinine Clr Calc Pharmacy 11.8 ml/min; Est GFR (African American) 8.2; Est GFR (Non-African American) 7.1; Globulin 4.3 gm/dl (2.5-4.0); Glucose 119 mg/dl (70-99); Magnesium 1.7 mg/dl (1.8-2.4); Potassium 5.2 mmol/L (3.5-5.1); Sodium 129 mmol/L (136-145); Total Protein 6.7 gm/dl (6.4-8.2); Troponin I < 0.015 ng/ml (0-0.045)
--- NOTE | 2019-11-26 14:27 | Emergency Department Note ---
Impression & Plan Sepsis, Adrenal insufficiency, Left bundle branch block, Acute on chronic renal failure, Nephrostomy status, Pericardial effusion, Metastatic disease ED Provider Note NAME: MARYANN RAHMAN AGE: 74 SEX: M ARRIVES VIA: Walk-In INFORMANT: Patient, ED PROVIDER(S): Kurt Rodriguez MD CHIEF COMPLAINT: Weakness, UTI PLAN: Disposition: Admit MEDICAL DECISION MAKING: The patient is a 74-year-old gentleman with a complicated past medical history of metastatic melanoma with bladder mass follows with [facility], history of CKD and obstructive uropathy with indwelling right nephrostomy tube, history of adrenal insufficiency who presents emergency department with worsening generalized fatigue, weakness, feverishness and chills over the past 48 hours with report of decreased oral intake referred the emergency department for evaluation by [facility]. Patient reports he received treatment of ipilimumab for his metastatic cancer a week ago and reports that he usually does not feel great after this infusion but reports he feels much worse than usual. Denies any preceding respiratory symptoms including cough or congestion. On arrival the patient is ill-appearing, afebrile, hypotensive 70/40s but mentating normally. He has moderate lower abdominal tenderness without guarding or rebound. His right nephrostomy site is clean dry and intact. His diminished breath sounds at the bases but is otherwise clear. 1+ bilateral lower extremity pitting edema. EKG demonstrates old left bundle branch block without Sgarbossa criteria. Patient's initial chest x-ray demonstrates no acute process without evidence of infection. I-STAT chemistry performed and demonstrates acute on chronic renal failure with creatinine of 7 without metabolic acidosis. Results were further confirmed on lab chemistry creatinine of 7, BUN 53 but with bicarb of 24. Lactate 1.8 within normal limits. Magnesium 1.7 with repletion provid ed. LFTs unremarkable. Troponin negative/undetectable. Procalcitonin 6.1. Patient's renal failure only a minimal amount of urine was obtained and thus was sent for culture only. Patient's history of urosepsis review of the patient's previous cultures demonstrates history of enterococcus as well as ESBL E. coli and therefore was treated empirically with ertapenem and daptomycin. Additionally treated with stress dose Hydrocortisone and Additional dose of Fludrocortisone. CT of the abdomen and pelvis demonstrates worsening lymphadenopathy and persistence of the patient's bladder mass. Of note note, small pericardial effusion appears stable from prior. I did perform a limited bedside echo which did demonstrated a small pericardial effusion without overt evidence of Tamponade. Given the patient's hypotension with difficulty IV access, patient was consented for a right IJ central line which was successfully placed per procedure note. Case was discussed with Karina Baez [facility] hrology. Given the patient does not have severe metabolic acidosis at this time agrees that it is reasonable to continue to manage the patient here at [facility] as he would not consider dialysis for this patient until we have at least assessed his responsiveness to his resuscitation. Thus, no emergent indication for transfer for possible CVVH or dialysis otherwise at this time. Case was discussed with Dr. Vail, [facility] hospitalist, who will evaluate the patient for admission. Triage Nursing notes reviewed and agree them. Additional history obtained [facility] Prior medical records reviewed Vital Signs: reviewed and remarkable for no significant abnormalities Differential diagnosis: Sepsis, UTI, pneumonia, metabolic, electrolyte abnormalities, cardiac sources, intracerebral event, toxicologic, neurologic, as well as other pathologies. ER treatment provided: See below. Diagnostics interpreted by me: ECG 1307: Normal sinus rhythm, 98 bpm, left bundle branch block, no ectopy, No Sgarbossa criteria, QTC 487, QRS 142, similar to 09/11/2019. ECG 1426: Normal sinus rhythm, 86 bpm, left bundle branch block, no ectopy, No S garbossa criteria, QTC 495, QRS 148. Cardiac Monitoring: An order for continuous cardiac monitoring was placed and demonstrated NSR, 98 bpm, no ectopy. Laboratory studies: See below Imaging studies: XR chest 1V portable CLINICAL HISTORY: 74 years-old Male presenting with SEPSIS. TECHNIQUE: Portable upright AP view of the chest was obtained. COMPARISON: 09/13/2019. FINDINGS: Left subclavian pacer with leads to the right atrium and right ventricular apex. Surgical clips noted in the right axilla. Atherosclerosis of the aortic arch. Cardiac silhouette normal in size. Slight asymmetric density of the lungs with more radiolucency on the right. This appearance is similar to prior. This may relate to differential overlapping soft tissues. No focal opacity. No large effusion or pneumothorax. Degenerative changes of the thoracic spine. Upper abdomen normal. IMPRESSION: 1. No acute cardiopulmonary disease. ACT 112: Negative or not required by law. ---- CT abd pelvis wo con CLINICAL HISTORY: 74 years-old Male presenting with possible sepsis/uti, abd pain, cancer with mets. TECHNIQUE: Multidetector CT of the abdomen and pelvis was performed without the use of intravenous contrast. IV contrast: None. One or more dose lowering techniques were used consistent with the principles of ALARA (as low as reasonab ly achievable), including automatic exposure control, mA or kV adjustment to individual patient size, and/or use of iterative reconstruction. COMPARISON: 09/29/2019. CT DOSE (mGy.cm): The estimated cumulative dose is 1447.25 mGy.cm. FINDINGS: Triage Licensed Practical Nurse topogram: Right nephrostomy tube in place. 2-lead pacer. Lung bases: Normal heart size. Small pericardial effusion. No pleural effusion. Minimal dependent changes likely atelectasis. Liver: Normal morphology. Density consistent with hepatic steatosis. Biliary: No gross biliary ductal dilatation allowing for noncontrast technique. Normal gallbladder. Pancreas: Mass like appearance of the pancreatic head secondary to adjacent peripancreatic lymphadenopathy. The pancreatic parenchyma itself is normal for noncontrast technique. Spleen: Normal noncontrast appearance. Adrenal glands: Poorly visualized adrenal glands. Nodular focus in the right suprarenal region may represent a lymph node or exophytic liver nodule. This measures 2.1 cm and is soft tissue density (series 3 image 135), new since May. This may represent residual right adrenal gland nodule. Kidneys and ureters: Extensive cystic change in the kidneys bilaterally. Limited evaluation of the renal parenchyma. Right nephrostomy tube in place. Mild pelvocaliectasis of the left kidney. Ureters are both mildly distended though there is no gross evidence of an obstructing calculus or mass allowing for noncontrast limitations. Bladder: Extensive heterogeneously soft tissue density material in the urinary bladder. This may represent a polypoid mass. The appearance is similar to prior. Gas in the urinary bladder is evident. Pelvic organs: Normal noncontrast appearance. Bowel: Mild diverticulosis of the sigmoid colon. No wall thickening or pericolonic inflammatory change. The appendix is normal. No bowel obstruction. Peritoneal cavity: No free fluid or intraperitoneal gas. Lymph nodes: Multilobular soft tissue at the level of the right renal hilum most likely represents peripancreatic and pericaval lymphadenopathy. The noncontrast technique and conglomerate nature of the nodes makes assessment difficult. These have significantly increased in size, for instance a pericaval node measures 33 x 24 mm, previously 17 x 16 mm. The largest node measures 5.2 x 4.2 cm, previously 4.9 x 3.7 cm. Vasculature: Atherosclerosis of the normal caliber abdominal aorta. Abdominal wall: Gynecomastia. Musculoskeletal: Degenerative changes of the spine. No destructive osseous lesion. IMPRESSION: 1. Progression of presumed retroperitoneal and peripancreatic lymphadenopathy. This is suboptimally assessed with noncontrast technique. Presumably this relates to the reported malignancy. 2. Increasing size of a right suprarenal nodule, especially in comparison to pr ior CT from 06/14/2019. This may represent recurrence of the prior right adrenal gland nodule evident on MR from 04/12/2018. Attention on follow-up. 3. Persistent small pericardial effusion. 4. Hepatic steatosis. 5. Polycystic kidneys. Distention of the left renal collecting system concerning for mild left hydronephrosis. 6. Persistent heterogeneous soft tissue in the bladder lumen likely r epresenting a bladder neoplasm. ACT 112: Negative or not required by law. -- XR chest 1V portable CLINICAL HISTORY: 74 years-old Male presenting with confirm central line. TECHNIQUE: Portable upright AP view of the chest was obtained. COMPARISON: 11/26/2019 at 12:51 PM. FINDINGS: Interval placement of a right internal jugular central venous catheter, which terminates in the upper SVC. Left subclavian pacer with leads in the right atrium and right ventricular apex. Atherosclerosis of the aortic arch. Cardiac silhouette mildly enlarged. Date perihilar added density on the right and minimal left basilar opacity. No large effusion or pneumothorax. Degenerative changes of the thoracic spine. Upper abdomen normal. IMPRESSION: 1. Appropriately positioned right IJ central venous catheter. No pneumothorax. 2. Cardiomegaly. 3. Perihilar and basilar predominant opacities may indicate atelectasis or developing mild edema. Follow-up advised. ACT 112: Negative or not required by law. Consultation(s): None HPI: The patient is a 74-year-old gentleman with a complicated past medical history of metastatic follows [facility], history of CKD and obstructive uropathy with indwelling right nephrostomy tube, history of adrenal insufficiency who presents emergency department with worsening generalized fatigue, weakness, feverishness and chills over the past 48 hours with report of decreased oral intake referred the emergency department for evaluation by [facility]. Patient reports he received treatment of ipilimumab for his metastatic cancer a week ago and reports that he usually does not feel great after this infusion but reports he feels much worse than usual. Denies any preceding respiratory symptoms including cough or congestion. ROS: See above HPI for pertinent positives & negatives. A total of 10 systems reviewed and were otherwise negative. PAST MEDICAL HISTORY:See Below PAST SURGICAL HISTORY:See Below FAMILY HISTORY:See Below SOCIAL HISTORY:See Below HOME MEDICATIONS:See Below ALLERGIES:See Below VITALS:See Below PHYSICAL EXAMINATION: GENERAL: Awake, alert, ill-appearing, in no distress HENT: Normocephalic, atraumatic. Oropharynx with dry mucous membranes and otherwise unremarkable. EYES: Normal conjunctiva. Sclera non-icteric. NECK: Supple. No nuchal rigidity. FROM. No JVD. RESPIRATORY: Clear to auscultation. CARDIAC: Regular rate, normal rhythm. Cool and clammy. Pulses equal. ABDOMEN: Soft, non-distended. Mild lower abdominal tenderness. No rebound or guarding. Right flank nephrostomy site clean dry and intact. RECTAL: Deferred. MUSCULOSKELETAL: Chest examination reveals no tenderness. The back is symmetrical on inspection without obvious abnormality. There is no CVA tenderness to palpation. No joint edema. LOWER EXTREMITIES: Calves are equal size bilaterally and non-tender. Plus bilateral lower extremity edema. No discoloration. NEURO: Normal sensorium. No sensory or motor deficits noted. SKIN: Slight diaphoresis. No rash or jaundice noted. ED COURSE: Procedures: Central Venous Catheter Indication: Sepsis, Poor IV access Catheter type: Triple Lumen Location: Right IJ Verbal consent was obtained after the risks and benefits were explained, including but not limited to pneumothorax, hemothorax, vessel injury, bleeding, scarring, infection, pain, and bone/joint/nerve damage. At this time, the risks of the procedure are less than the risks of NOT performing the procedure. A time out was taken and the correct patient and site identified. The patient was placed in the supine position and the skin was prepped in the standard fashion with chlorhexidine and full sterile drapes applied. The proper landmarks were identified with ultrasound, anesthetized with 1% lidocaine without epinephrine, and the needle was inserted through the skin in the standard fashion. The needle was carefully advanced into blood vessel lumen under dynamic ultrasound guidance. The guidewire was placed uneventfully. The vessel is dilated and the catheter was placed. It was sutured into position. There was good blood return from all ports. The patient tolerated the procedure well and there were no complications. Post procedure x-ray was normal. Critical Care: I have personally spent greater than 95 minutes of critical care time in the direct management of this patient. This includes bedside care, interpretation of diagnostic studies, and testing, discussion with consultants, patient, and family members, and other required patient management activities. This 95 [address]iana is in excess of all separately billable procedures. Kurt Rodriguez MD Past Med/Surg History Medical History Adrenal insufficiency S/P LEFT ADRENALECTOMY- ON CHRONIC HYDROCORTISONE Anxiety (Chronic) Cardiomyopathy (Chronic) Chronic kidney disease, stage 4 (severe) Degenerative disc disease (Chronic) Diabetes mellitus, type II Dyslipidemia (Chronic) H/O transfusion of packed red blood cells S/P 2 UNITS (2016) History of immunotherapy (Chronic) Keytruda x 2 Cycles (had to stop after 2nd cycle) Current Opdivo q 2 weeks (currently on hold) - started 05/2017 - 04/2018 Hypertension Metastatic malignant melanoma Morbid obesity (Chronic) Sleep apnea CPAP HS Surgical History History of colonoscopy 2016 History of esophagogastroduodenoscopy (EGD) 2017 History of tooth extraction Hx of cystoscopy 05/05/18 - BLADDER TUMOR EXCISION Hx of total adrenalectomy LEFT SIDE-- HX B/L ADRENAL MASSES; UNDERWENT LAP LEFT ADRENAL MASS EXCISION 04/14/17; PATHOLOGY METASTATIC MALIGNANT MELANOMA WITH VASCULAR INVASION Nephrostomy status (Acute) Family History Father No problems noted. Mother Colon cancer, Onset Age: 85 Chemo and Resection - Alive and well now Sister Breast cancer, Onset Age: 55 Had Radiation - Alive and well now Sister No problems noted. Sister No problems noted. Sister No problems noted. Sister No problems noted. Brother No problems noted. Son No problems noted. Son No problems noted. 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 Other Information That Helps Us Care for You: No Feels Safe at Home: Yes Safety Concerns: Feels Safe At This Time Smoking Status: Never smoker Tobacco Type: smokeless tobacco ; Do You Dip or Chew Tobacco: Yes ; Second Hand Exposure: No ; Tobacco Cessation Education Requested by Patient: No Hx Alcohol Use: No Hx Substance Use: No caffeine: Yes (2 cups of coffee/day ) during the past year weight has: remained stable Allergies Allergies Allergy/AdvReac Type Severity Reaction Status Date / Time perflutren AdvReac Intermediate GI SYMPTOMS Verified 09/29/19 16:55 propylene glycol AdvReac Intermediate GI SYMPTOMS Verified 09/29/19 16:55 simvastatin AdvReac Intermediate JOINT AND Verified 09/29/19 16:55 MUSCLE PAIN Home Meds Home Medications Medication Instructions Recorded Confirmed cholecalciferol (vitamin D3) 1,000 unit PO QAM 04/20/18 11/26/19 [Vitamin D3] docusate sodium [Colace] 100 mg PO BID 04/20/18 11/26/19 ondansetron HCl 4 mg tablet 4 mg PO Q8H PRN tab 08/10/18 11/26/19 acetaminophen [Tylenol Extra 500 mg PO Q6H PRN 05/22/19 11/26/19 Strength] methylprednisolone sodium succ 125 mg IM DIRECTED PRN 05/22/19 11/26/19 triamcinolone acetonide 1 applic TOPICAL BID PRN 05/22/19 11/26/19 Lantus Solostar U-100 Insulin 30 unit SC BID 07/02/19 11/26/19 fludrocortisone 0.1 mg PO QAM 07/02/19 11/26/19 hydrocortisone 10 mg PO DAILY@1200,1500 07/02/19 11/26/19 hydrocortisone 20 mg PO DAILY@0500 07/02/19 11/26/19 lorazepam 1 mg PO DAILY PRN 07/29/19 11/26/19 amiodarone 200 mg PO QAM 08/17/19 11/26/19 calcitriol 0.5 mcg PO HS 09/09/19 11/26/19 amoxicillin 500 mg PO BID 11/26/19 11/26/19 oxycodone-acetaminophen 1 tab PO Q8H PRN 11/26/19 11/26/19 prochlorperazine maleate 5 mg PO Q6H PRN 11/26/19 11/26/19 Previous Rx's Medication Instructions Recorded torsemide 20 mg PO MOWEFR@0900 #30 tab 10/02/19 Results & Data (ED) Vital Signs Vital Signs - 24 hr 11/26/19 12:26 11/26/19 13:07 11/26/19 13:14 Temperature 36.6 C Temperature Source Oral Pulse Rate 102 H 97 H Pulse Rate from SpO2 Sensor Respiratory Rate 20 25 H Respiratory Effort / Characteristics Non-Labored Respiratory Depth Normal Blood Pressure 77/48 L Blood Pressure Mean 57 Pulse Oximetry 96 96 Oxygen Delivery Method Room Air Room Air Sepsis Recent Fever Within 48 Hours No Sepsis Action Taken by Nursing No Action Required 11/26/19 13:15 11/26/19 13:28 11/26/19 13:30 Temperature Temperature Source Pulse Rate 98 H 98 H 97 H Pulse Rate from SpO2 Sensor 97 H 97 H Respiratory Rate 24 22 22 Respiratory Effort / Characteristics Respiratory Depth Blood Pressure 95/45 L 106/58 L Blood Pressure Mean 57 70 Pulse Oximetry 95 93 93 Oxygen Delivery Method Room Air Room Air Room Air Sepsis Recent Fever Within 48 Hours Sepsis Action Taken by Nursing 11/26/19 13:45 11/26/19 14:00 11/26/19 14:02 Temperature Temperature Source Pulse Rate 93 H 91 H 90 Pulse Rate from SpO2 Sensor 92 H 91 H 90 Respiratory Rate 24 25 H 22 Respiratory Effort / Characteristics Respiratory Depth Blood Pressure Blood Pressure Mean Pulse Oximetry 93 96 97 Oxygen Delivery Method Room Air Room Air Room Air Sepsis Recent Fever Within 48 Hours Sepsis Action Taken by Nursing 11/26/19 14:21 11/26/19 14:22 11/26/19 14:26 Temperature Temperature Source Pulse Rate 90 87 87 Pulse Rate from SpO2 Sensor 91 H 88 87 Respiratory Rate 14 13 23 Respiratory Effort / Characteristics Respiratory Depth Blood Pressure 73/47 L 83/49 L Blood Pressure Mean 57 56 Pulse Oximetry 96 97 95 Oxygen Delivery Method Room Air Room Air Room Air Sepsis Recent Fever Within 48 Hours Sepsis Action Taken by Nursing 11/26/19 14:30 11/26/19 14:37 11/26/19 14:45 Temperature Temperature Source Pulse Rate 86 85 85 Pulse Rate from SpO2 Sensor 86 85 86 Respiratory Rate 22 25 H 22 Respiratory Effort / Characteristics Respiratory Depth Blood Pressure 80/43 L 89/40 L Blood Pressure Mean 59 67 Pulse Oximetry 96 96 96 Oxygen Delivery Method Room Air Room Air Room Air Sepsis Recent Fever Within 48 Hours Sepsis Action Taken by Nursing 11/26/19 14:46 11/26/19 14:57 11/26/19 15:00 Temperature Temperature Source Pulse Rate 83 83 83 Pulse Rate from SpO2 Sensor 83 83 84 Respiratory Rate 22 24 22 Respiratory Effort / Characteristics Respiratory Depth Blood Pressure 81/43 L 75/43 L Blood Pressure Mean 63 47 Pulse Oximetry 97 96 97 Oxygen Delivery Method Room Air Room Air Room Air Sepsis Recent Fever Within 48 Hours Sepsis Action Taken by Nursing 11/26/19 15:15 11/26/19 15:17 11/26/19 15:25 Temperature Temperature Source Pulse Rate 82 91 H 80 Pulse Rate from SpO2 Sensor 82 85 81 Respiratory Rate 16 19 16 Respiratory Effort / Characteristics Respiratory Depth Blood Pressure 72/53 L 57/31 L Blood Pressure Mean 66 36 Pulse Oximetry 96 98 97 Oxygen Delivery Method Room Air Room Air Room Air Sepsis Recent Fever Within 48 Hours Sepsis Action Taken by Nursing 11/26/19 15:27 11/26/19 15:30 11/26/19 15:45 Temperature Temperature Source Pulse Rate 81 79 77 Pulse Rate from SpO2 Sensor 82 79 78 Respiratory Rate 22 22 18 Respiratory Effort / Characteristics Respiratory Depth Blood Pressure 76/48 L 80/43 L Blood Pressure Mean 58 54 Pulse Oximetry 96 98 95 Oxygen Delivery Method Room Air Room Air Room Air Sepsis Recent Fever Within 48 Hours Sepsis Action Taken by Nursing 11/26/19 16:00 11/26/19 16:15 11/26/19 16:17 Temperature Temperature Source Pulse Rate 77 71 74 Pulse Rate from SpO2 Sensor 77 78 75 Respiratory Rate 20 13 14 Respiratory Effort / Characteristics Respiratory Depth Blood Pressure 67/47 L Blood Pressure Mean 49 Pulse Oximetry 97 99 Oxygen Delivery Method Room Air Room Air Sepsis Recent Fever Within 48 Hours Sepsis Action Taken by Nursing 11/26/19 16:30 11/26/19 16:45 11/26/19 16:56 Temperature Temperature Source Pulse Rate 74 71 70 Pulse Rate from SpO2 Sensor 75 72 65 Respiratory Rate 23 23 19 Respiratory Effort / Characteristics Respiratory Depth Blood Pressure 89/45 L 77/44 L 76/42 L Blood Pressure Mean 54 50 46 Pulse Oximetry 98 100 100 Oxygen Delivery Method Room Air Room Air Room Air Sepsis Recent Fever Within 48 Hours Sepsis Action Taken by Nursing 11/26/19 17:00 11/26/19 17:05 11/26/19 17:10 Temperature Temperature Source Pulse Rate 68 69 68 Pulse Rate from SpO2 Sensor 68 69 Respiratory Rate 19 21 20 Respiratory Effort / Characteristics Respiratory Depth Blood Pressure 85/51 L 84/42 L 87/47 L Blood Pressure Mean 56 55 64 Pulse Oximetry 100 99 100 Oxygen Delivery Method Room Air Room Air Room Air Sepsis Recent Fever Within 48 Hours Sepsis Action Taken by Nursing 11/26/19 17:15 11/26/19 17:20 11/26/19 17:21 Temperature Temperature Source Pulse Rate 69 71 72 Pulse Rate from SpO2 Sensor 69 69 72 Respiratory Rate 21 27 H 16 Respiratory Effort / Characteristics Respiratory Depth Blood Pressure 68/47 L 79/48 L Blood Pressure Mean 61 58 Pulse Oximetry 100 95 100 Oxygen Delivery Method Room Air Room Air Room Air Sepsis Recent Fever Within 48 Hours Sepsis Action Taken by Nursing 11/26/19 17:25 11/26/19 17:30 11/26/19 17:35 Temperature Temperature Source Pulse Rate 71 70 70 Pulse Rate from SpO2 Sensor 73 71 70 Respiratory Rate 19 19 19 Respiratory Effort / Characteristics Respiratory Depth Blood Pressure 92/47 L 83/55 L 90/44 L Blood Pressure Mean 65 63 58 Pulse Oximetry 99 97 98 Oxygen Delivery Method Room Air Room Air Room Air Sepsis Recent Fever Within 48 Hours Sepsis Action Taken by Nursing 11/26/19 17:36 11/26/19 17:40 11/26/19 17:41 Temperature Temperature Source Pulse Rate 71 71 72 Pulse Rate from SpO2 Sensor 71 72 73 Respiratory Rate 16 16 17 Respiratory Effort / Characteristics Respiratory Depth Blood Pressure 74/36 L Blood Pressure Mean 58 Pulse Oximetry 96 97 100 Oxygen Delivery Method Room Air Room Air Room Air Sepsis Recent Fever Within 48 Hours Sepsis Action Taken by Nursing 11/26/19 17:45 11/26/19 17:50 11/26/19 17:51 Temperature Temperature Source Pulse Rate 73 73 89 Pulse Rate from SpO2 Sensor 73 75 Respiratory Rate 22 18 16 Respiratory Effort / Characteristics Respiratory Depth Blood Pressure 92/45 L 76/48 L Blood Pressure Mean 55 55 Pulse Oximetry 99 98 95 Oxygen Delivery Method Room Air Room Air Room Air Sepsis Recent Fever Within 48 Hours Sepsis Action Taken by Nursing 11/26/19 17:55 11/26/19 18:00 11/26/19 18:01 Temperature Temperature Source Pulse Rate 71 69 71 Pulse Rate from SpO2 Sensor 70 71 Respiratory Rate 24 19 18 Respiratory Effort / Characteristics Respiratory Depth Blood Pressure 84/48 L 82/49 L 83/43 L Blood Pressure Mean 54 54 56 Pulse Oximetry 98 97 98 Oxygen Delivery Method Room Air Room Air Room Air Sepsis Recent Fever Within 48 Hours Sepsis Action Taken by Nursing 11/26/19 18:03 11/26/19 18:05 11/26/19 18:07 Temperature Temperature Source Pulse Rate 71 84 66 Pulse Rate from SpO2 Sensor 71 72 66 Respiratory Rate 15 20 14 Respiratory Effort / Characteristics Respiratory Depth Blood Pressure 77/42 L 107/56 L Blood Pressure Mean 54 71 Pulse Oximetry 100 96 98 Oxygen Delivery Method Room Air Room Air Room Air Sepsis Recent Fever Within 48 Hours Sepsis Action Taken by Nursing 11/26/19 18:12 11/26/19 18:13 11/26/19 18:15 Temperature Temperature Source Pulse Rate 78 106 H 68 Pulse Rate from SpO2 Sensor 70 67 Respiratory Rate 18 24 27 H Respiratory Effort / Characteristics Respiratory Depth Blood Pressure 84/50 L Blood Pressure Mean 62 Pulse Oximetry 98 98 Oxygen Delivery Method Room Air Room Air Sepsis Recent Fever Within 48 Hours Sepsis Action Taken by Nursing Laboratory Data Attestation: I reviewed the patient's lab results. Result diagrams: 11/26/19 13:25 11/26/19 13:25 Lab Results 11/26/19 11/26/19 11/26/19 Range/Units 13:19 13:25 13:25 WBC 12.27 H (4.8-10.8) K/uL RBC 4.27 L (4.7-6.1) M/uL Hgb 10.7 L (14.0-18.0) g/dL POC Hgb 12.9 L (14.0-18.0) g/dl Hct 34.6 L (42-52) % POC Hct 38 L (42-52) % MCV 81.0 (80-100) fL MCH 25.1 (25-34) pg MCHC 30.9 L (32-36) g/dL RDW Std Deviation 52.6 H (36.4-46.3) fL RDW Coeff of Scottie 17.7 H (11.5-14.5) % Plt Count 313 (130-400) K/uL MPV 9.7 (7.4-10.4) fL Immature Gran % (Auto) 0.3 % Neut % (Auto) 79.0 % Lymph % (Auto) 9.2 % [place] % (Auto) 10.3 % Eos % (Auto) 1.0 % Baso % (Auto) 0.2 % Immature Gran # (Auto) 0.04 H (0.00-0.02) K/uL Neut # (Auto) 9.70 H (1.4-6.5) K/uL Lymph # (Auto) 1.13 L (1.2-3.4) K/uL [place] # (Auto) 1.26 H (0.11-0.59) K/uL Eos # (Auto) 0.12 (0-0.5) K/uL Baso # (Auto) 0.02 (0-0.2) K/uL PT 12.6 H (9.0-12.0) Seconds INR 1.2 H (0.9-1.1) APTT 41.2 H (21.0-31.0) Seconds PTT Ratio 1.5 VBG pH (7.36-7.41) VBG pCO2 (38-50) mmHg VBG pO2 mmHg VBG HCO3 mmol/L VBG O2 Saturation % VBG Base Excess mEq/L Barometric Pressure mm/Hg POC Sodium 127 L (135-144) mmol/L Sodium (136-145) mmol/L POC Potassium 5.2 H (3.3-5.0) mmol/L Potassium (3.5-5.1) mmol/L POC Chloride 96 L (101-112) mmol/L Chloride (98-107) mmol/L Carbon Dioxide (21-32) mmol/L POC Total CO2 20 L (24-31) mmol/L Anion Gap (3-11) POC Anion Gap 17.0 (16-25) mmol/L POC BUN 47 H (7-18) mg/dl BUN (7-18) mg/dl Creatinine (0.6-1.4) mg/dl POC Creatinine 7.4 H* (0.6-1.3) mg/dl Est Cr Clr Drug Dosing ml/min Est GFR ( Amer) Est GFR (Non-Af Amer) BUN/Creatinine Ratio (10-20) Glucose (70-99) mg/dl POC Glucose (other) 119 H (70-99) mg/dl Lactate (0.4-2.0) mmol/L Calcium (8.5-10.1) mg/dl POC Ioniz Calcium Martinez 1.03 L (1.12-1.32) mmol/l Magnesium (1.8-2.4) mg/dl Total Bilirubin (0.2-1) mg/dl AST (15-37) U/L ALT (12-78) U/L Alkaline Phosphatase (45-117) U/L Troponin I (0-0.045) ng/ml Total Protein (6.4-8.2) gm/dl Albumin (3.4-5.0) gm/dl Globulin (2.5-4.0) gm/dl Albumin/Globulin Ratio (0.9-2) Procalcitonin (0-0.5) ng/ml 11/26/19 11/26/19 11/26/19 Range/Units 13:25 13:25 13:25 WBC (4.8-10.8) K/uL RBC (4.7-6.1) M/uL Hgb (14.0-18.0) g/dL POC Hgb (14.0-18.0) g/dl Hct (42-52) % POC Hct (42-52) % MCV (80-100) fL MCH (25-34) pg MCHC (32-36) g/dL RDW Std Deviation (36.4-46.3) fL RDW Coeff of Scottie (11.5-14.5) % Plt Count (130-400) K/uL MPV (7.4-10.4) fL Immature Gran % (Auto) % Neut % (Auto) % Lymph % (Auto) % [place] % (Auto) % Eos % (Auto) % Baso % (Auto) % Immature Gran # (Auto) (0.00-0.02) K/uL Neut # (Auto) (1.4-6.5) K/uL Lymph # (Auto) (1.2-3.4) K/uL [place] # (Auto) (0.11-0.59) K/uL Eos # (Auto) (0-0.5) K/uL Baso # (Auto) (0-0.2) K/uL PT (9.0-12.0) Seconds INR (0.9-1.1) APTT (21.0-31.0) Seconds PTT Ratio VBG pH (7.36-7.41) VBG pCO2 (38-50) mmHg VBG pO2 mmHg VBG HCO3 mmol/L VBG O2 Saturation % VBG Base Excess mEq/L Barometric Pressure mm/Hg POC Sodium (135-144) mmol/L Sodium 129 L (136-145) mmol/L POC Potassium (3.3-5.0) mmol/L Potassium 5.2 H (3.5-5.1) mmol/L POC Chloride (101-112) mmol/L Chloride 96 L (98-107) mmol/L Carbon Dioxide 24 (21-32) mmol/L POC Total CO2 (24-31) mmol/L Anion Gap 10.0 (3-11) POC Anion Gap (16-25) mmol/L POC BUN (7-18) mg/dl BUN 53 H (7-18) mg/dl Creatinine 7.05 H* (0.6-1.4) mg/dl POC Creatinine (0.6-1.3) mg/dl Est Cr Clr Drug Dosing 11.8 ml/min Est GFR ( Amer) 8.2 Est GFR (Non-Af Amer) 7.1 BUN/Creatinine Ratio 7.5 L (10-20) Glucose 119 H (70-99) mg/dl POC Glucose (other) (70-99) mg/dl Lactate 1.8 (0.4-2.0) mmol/L Calcium 8.7 (8.5-10.1) mg/dl POC Ioniz Calcium Martinez (1.12-1.32) mmol/l Magnesium 1.7 L (1.8-2.4) mg/dl Total Bilirubin 1.0 (0.2-1) mg/dl AST 17 (15-37) U/L ALT 20 (12-78) U/L Alkaline Phosphatase 88 (45-117) U/L Troponin I < 0.015 (0-0.045) ng/ml Total Protein 6.7 (6.4-8.2) gm/dl Albumin 2.4 L (3.4-5.0) gm/dl Globulin 4.3 H (2.5-4.0) gm/dl Albumin/Globulin Ratio 0.6 L (0.9-2) Procalcitonin 6.12 H (0-0.5) ng/ml 11/26/19 Range/Units 15:24 WBC (4.8-10.8) K/uL RBC (4.7-6.1) M/uL Hgb (14.0-18.0) g/dL POC Hgb (14.0-18.0) g/dl Hct (42-52) % POC Hct (42-52) % MCV (80-100) fL MCH (25-34) pg MCHC (32-36) g/dL RDW Std Deviation (36.4-46.3) fL RDW Coeff of Scottie (11.5-14.5) % Plt Count (130-400) K/uL MPV (7.4-10.4) fL Immature Gran % (Auto) % Neut % (Auto) % Lymph % (Auto) % [place] % (Auto) % Eos % (Auto) % Baso % (Auto) % Immature Gran # (Auto) (0.00-0.02) K/uL Neut # (Auto) (1.4-6.5) K/uL Lymph # (Auto) (1.2-3.4) K/uL [place] # (Auto) (0.11-0.59) K/uL Eos # (Auto) (0-0.5) K/uL Baso # (Auto) (0-0.2) K/uL PT (9.0-12.0) Seconds INR (0.9-1.1) APTT (21.0-31.0) Seconds PTT Ratio VBG pH 7.30 L (7.36-7.41) VBG pCO2 44 (38-50) mmHg VBG pO2 37 mmHg VBG HCO3 21 mmol/L VBG O2 Saturation < 60.0 % VBG Base Excess -5.1 mEq/L Barometric Pressure 731.8 mm/Hg POC Sodium (135-144) mmol/L Sodium (136-145) mmol/L POC Potassium (3.3-5.0) mmol/L Potassium (3.5-5.1) mmol/L POC Chloride (101-112) mmol/L Chloride (98-107) mmol/L Carbon Dioxide (21-32) mmol/L POC Total CO2 (24-31) mmol/L Anion Gap (3-11) POC Anion Gap (16-25) mmol/L POC BUN (7-18) mg/dl BUN (7-18) mg/dl Creatinine (0.6-1.4) mg/dl POC Creatinine (0.6-1.3) mg/dl Est Cr Clr Drug Dosing ml/min Est GFR ( Amer) Est GFR (Non-Af Amer) BUN/Creatinine Ratio (10-20) Glucose (70-99) mg/dl POC Glucose (other) (70-99) mg/dl Lactate (0.4-2.0) mmol/L Calcium (8.5-10.1) mg/dl POC Ioniz Calcium Martinez (1.12-1.32) mmol/l Magnesium (1.8-2.4) mg/dl Total Bilirubin (0.2-1) mg/dl AST (15-37) U/L ALT (12-78) U/L Alkaline Phosphatase (45-117) U/L Troponin I (0-0.045) ng/ml Total Protein (6.4-8.2) gm/dl Albumin (3.4-5.0) gm/dl Globulin (2.5-4.0) gm/dl Albumin/Globulin Ratio (0.9-2) Procalcitonin (0-0.5) ng/ml Administered Medications Calcitriol (Rocaltrol) 0.5 mcg PO HS RENZO Stop: 12/26/19 20:59 Last Admin: 11/26/19 21:57 Dose: 0.5 mcg Documented by: [id number] Docusate Sodium (Colace) 100 mg PO BID RENZO Stop: 12/26/19 20:59 Last Admin: 11/26/19 21:57 Dose: 100 mg Documented by: [id number] Norepinephrine Bitartrate 8 mg (/ Dextrose) 508 mls @ 13 mls/hr IV .Q24H RENZO; Protocol Stop: 12/26/19 17:44 Last Titration: 11/26/19 21:21 Dose: 0.028 mcg/kg/min, 13 mls/hr Documented by: [id number] Titration: 11/26/19 20:38 Dose: 0.03 mcg/kg/min, 13 mls/hr Documented by: [id number] Titration: 11/26/19 18:24 Dose: 0.03 mcg/kg/min, 13.1 mls/hr Documented by: [id number] Admin: 11/26/19 18:00 Dose: 0.05 mcg/kg/min, 21.8 mls/hr Documented by: [id number] Cosigned by: [id number] Sodium Chloride (Nss 1000ml) 1,000 mls @ 150 mls/hr IV .Q6H40M RENZO Stop: 12/26/19 20:14 Last Admin: 11/26/19 20:33 Dose: 150 mls/hr Documented by: [id number] Insulin Glargine (Lantus Solostar Pen) 30 units SC BID RENZO Stop: 12/26/19 20:59 Last Admin: 11/26/19 21:58 Dose: 30 units Documented by: [id number] Cosigned by: [id number] Discontinued Medications Fludrocortisone Acetate (Florinef) 0.1 mg PO NOW STA Stop: 11/26/19 15:21 Last Admin: 11/26/19 16:32 Dose: 0.1 mg Documented by: [id number] Hydrocortisone Sodium Succinate (Solu-Cortef) 100 mg IV NOW STA Stop: 11/26/19 13:56 Last Admin: 11/26/19 14:01 Dose: 100 mg Documented by: [id number] Sodium Chloride (Nss 1000ml) 1,000 mls @ 999 mls/hr IV .Q1H1M ONE Stop: 11/26/19 13:52 Last Infusion: 11/26/19 14:42 Dose: 0 mls/hr Documented by: [id number] Admin: 11/26/19 13:25 Dose: 999 mls/hr Documented by: [id number] Acetaminophen (Ofirmev) 1,000 mg in 100 mls @ 400 mls/hr IV NOW STA Stop: 11/26/19 13:06 Last Infusion: 11/26/19 13:40 Dose: 0 mls/hr Documented by: [id number] Admin: 11/26/19 13:25 Dose: 400 mls/hr Documented by: [id number] Famotidine (Pepcid 20mg Iv Push) 20 mg in 5 mls @ 2.5 mls/min IV NOW STA Stop: 11/26/19 12:54 Last Admin: 11/26/19 13:26 Dose: 2.5 mls/min Documented by: [id number] Ertapenem 500 mg/ Sodium (Chloride) 55 mls @ 110 mls/hr IV NOW STA Stop: 11/26/19 14:41 Last Infusion: 11/26/19 15:13 Dose: 0 mls/hr Documented by: [id number] Admin: 11/26/19 14:42 Dose: 110 mls/hr Documented by: [id number] Daptomycin 525 mg/ Syringe 10.5 mls @ 5.25 mls/min IV NOW STA; Protocol Stop: 11/26/19 14:14 Last Admin: 11/26/19 14:39 Dose: 5.25 mls/min Documented by: [id number] Magnesium Sulfate/Dextrose (Magnesium Sulfate / D5w) 1 gm in 100 mls @ 100 mls/hr IV Q1H RENZO Stop: 11/26/19 16:44 Last Infusion: 11/26/19 17:33 Dose: 0 mls/hr Documented by: [id number] Admin: 11/26/19 16:33 Dose: 100 mls/hr Documented by: [id number] Infusion: 11/26/19 16:32 Dose: 0 mls/hr Documented by: [id number] Admin: 11/26/19 15:14 Dose: 100 mls/hr Documented by: [id number] Sodium Chloride (Nss 1000ml) 1,000 mls @ 999 mls/hr IV .Q1M ONE Stop: 11/26/19 16:17 Last Infusion: 11/26/19 17:09 Dose: 0 mls/hr Documented by: [id number] Admin: 11/26/19 16:07 Dose: 999 mls/hr Documented by: [id number] Sodium Chloride (Nss 1000ml) 1,000 mls @ 999 mls/hr IV .Q1H1M RENZO Stop: 11/26/19 18:45 Last Infusion: 11/26/19 18:33 Dose: 0 mls/hr Documented by: [id number] Admin: 11/26/19 17:32 Dose: 999 mls/hr Documented by: [id number] Sodium Chloride (Nss 1000ml) 1,000 mls @ 999 mls/hr IV .Q1M ONE Stop: 11/26/19 18:40 Last Admin: 11/26/19 17:42 Dose: Not Given Documented by: [id number] Sodium Chloride (Nss 1000ml) 1,000 mls @ 999 mls/hr IV .Q1H1M ONE Stop: 11/26/19 18:43 Last Admin: 11/26/19 17:55 Dose: Not Given Documented by: [id number] Miscellaneous () 1 ea N/A NOW STA Stop: 11/26/19 17:39 Last Admin: 11/26/19 18:02 Dose: Not Given Documented by: [id number] Blood Pressure Blood Pressure Findings: Low blood pressure Blood Pressure Disposition: further management by hospitalist Discharge Plan Visit Data *Final* Discharge Date/Time: 11/26/19 19:06 Chief Complaint: Urinary Symptoms Stated Complaint: UTI,WEAKNESS, CA PT ED Provider: Kurt Rodriguez Discharge Problem: Sepsis, Adrenal insufficiency, Left bundle branch block, Acute on chronic renal failure, Nephrostomy status, Pericardial effusion, Metastatic disease Patient Disposition: Admitted As Inpatient Discharge Instructions Interventions: ED Discharge Assessment Last Done: 11/26/19 19:06 Discharge Problem: Sepsis Qualifiers: Sepsis type: sepsis due to unspecified organism Sepsis acute organ dysfunction status: with acute organ dysfunction Severe sepsis acute organ dysfunction type: acute renal failure Acute renal failure type: unspecified Severe sepsis shock status: with septic shock Qualified Code(s): A41.9 - Sepsis, unspecified organism Acute on chronic renal failure Qualifiers: Acute renal failure type: unspecified Chronic kidney disease stage: unspecified stage Qualified Code(s): N17.9 - Acute kidney failure, unspecified
--- NOTE | 2019-11-26 14:35 | CT Scan Report ---
CT abd pelvis wo con CLINICAL HISTORY: 74 years-old Male presenting with possible sepsis/uti, abd pain, cancer with mets. TECHNIQUE: Multidetector CT of the abdomen and pelvis was performed without the use of intravenous co ntrast. IV contrast: None. One or more dose lowering techniques were used consistent with the princip les of ALARA (as low as reasonably achievable), including automatic exposure control, mA or kV adjust ment to individual patient size, and/or use of iterative reconstruction. COMPARISON: 09/29/2019. CT DOSE (mGy.cm): The estimated cumulative dose is 1447.25 mGy.cm. FINDINGS: [employer] topogram: Right nephrostomy tube in place. 2-lead pacer. Lung bases: Normal heart size. Small pericardial effusion. No pleural effusion. Minimal dependent zoraida nges likely atelectasis. Liver: Normal morphology. Density consistent with hepatic steatosis. Biliary: No gross biliary ductal dilatation allowing for noncontrast technique. Normal gallbladder. Pancreas: Mass like appearance of the pancreatic head secondary to adjacent peripancreatic lymphadeno missael. The pancreatic parenchyma itself is normal for noncontrast technique. Spleen: Normal noncontrast appearance. Adrenal glands: Poorly visualized adrenal glands. Nodular focus in the right suprarenal region may re present a lymph node or exophytic liver nodule. This measures 2.1 cm and is soft tissue density (seri es 3 image 135), new since May. This may represent residual right adrenal gland nodule. Kidneys and ureters: Extensive cystic change in the kidneys bilaterally. Limited evaluation of the re nal parenchyma. Right nephrostomy tube in place. Mild pelvocaliectasis of the left kidney. Ureters ar e both mildly distended though there is no gross evidence of an obstructing calculus or mass allowing for noncontrast limitations. Bladder: Extensive heterogeneously soft tissue density material in the urinary bladder. This may repr esent a polypoid mass. The appearance is similar to prior. Gas in the urinary bladder is evident. Pelvic organs: Normal noncontrast appearance. Bowel: Mild diverticulosis of the sigmoid colon. No wall thickening or pericolonic inflammatory carrillo e. The appendix is normal. No bowel obstruction. Peritoneal cavity: No free fluid or intraperitoneal gas. Lymph nodes: Multilobular soft tissue at the level of the right renal hilum most likely represents pe ripancreatic and pericaval lymphadenopathy. The noncontrast technique and conglomerate nature of the nodes makes assessment difficult. These have significantly increased in size, for instance a pericava l node measures 33 x 24 mm, previously 17 x 16 mm. The largest node measures 5.2 x 4.2 cm, previously 4.9 x 3.7 cm. Vasculature: Atherosclerosis of the normal caliber abdominal aorta. Abdominal wall: Gynecomastia. Musculoskeletal: Degenerative changes of the spine. No destructive osseous lesion. IMPRESSION: 1. Progression of presumed retroperitoneal and peripancreatic lymphadenopathy. This is suboptimally assessed with noncontrast technique. Presumably this relates to the reported malignancy. 2. Increasing size of a right suprarenal nodule, especially in comparison to prior CT from 9. This may represent recurrence of the prior right adrenal gland nodule evident on MR from 04/12/2018 . Attention on follow-up. 3. Persistent small pericardial effusion. 4. Hepatic steatosis. 5. Polycystic kidneys. Distention of the left renal collecting system concerning for mild left hydro nephrosis. 6. 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 ACT 112: Negative or not required by law. Electronically signed by: Seven Ponce M.D. 11/26/2019 2:34 PM
[2019-11-26] MEDS: MAGNESIUM SULFATE / D5W 1 GM/100 ML BAG IV SCH ×2 (15:14→16:33)
[2019-11-26] MEDS ORDERED: FLUDROCORTISONE ACETATE 0.1 MG TAB PO STA (15:20)
[2019-11-26 15:46] LABS: Base Excess VBG -5.1 mEq/L; HCO3 VBG 21 mmol/L; Oxygen Saturation VBG < 60.0 %; PCO2 VBG 44 mmHg (38-50); PO2 VBG 37 mmHg
[2019-11-26] MEDS ORDERED: STAT IV Infusion **Titration per Protocol STA (17:38)
[2019-11-26] MEDS ORDERED: SODIUM CHLORIDE 0.9% 1000ML 1,000 ML IV SCH (17:45)
[2019-11-26] MEDS ORDERED: NOREPINEPHRINE BIT INJ 8 MG in DEXTROSE 5% 500 ML IV SCH (17:45)
--- NOTE | 2019-11-26 17:50 | XRay Report ---
XR chest 1V portable CLINICAL HISTORY: 74 years-old Male presenting with confirm central line. TECHNIQUE: Portable upright AP view of the chest was obtained. COMPARISON: 11/26/2019 at 12:51 PM. FINDINGS: Interval placement of a right internal jugular central venous catheter, which terminates in the upper SVC. Left subclavian pacer with leads in the right atrium and right ventricular apex. Atherosclerosi s of the aortic arch. Cardiac silhouette mildly enlarged. Date perihilar added density on the right a nd minimal left basilar opacity. No large effusion or pneumothorax. Degenerative changes of the thora cic spine. Upper abdomen normal. IMPRESSION: 1. Appropriately positioned right IJ central venous catheter. No pneumothorax. 2. Cardiomegaly. 3. Perihilar and basilar predominant opacities may indicate atelectasis or developing mild edema. Fo llow-up advised. ACT 112: Negative or not required by law. Electronically signed by: Seven Ponce M.D. 11/26/2019 5:49 PM
[2019-11-26] MEDS ORDERED: ICU PROTOCOL FOR HYPERGLYCEMIA PRN (18:16)
--- NOTE | 2019-11-26 18:51 | History & Physical Report ---
Date of Service November 26, 2019 Assessment & Plan (1) Hypotension: (2) Acute on chronic renal failure: (3) Chronic kidney disease, stage 4 (severe): -Creatinine baseline about 3 -Currently presents with creatinine of 7 -Possibly due to ATN/hypotension, hypovolemia, history of obstructive uropathy, currently with right nephrostomy tube, possible UTI -Patient was recently treated by home nurse with antibiotics for UTI -Patient reported dark urine and foul-smelling urine -UA pending, blood culture urine culture pending, white blood cell count mildly elevated at 12,000 -History of ESBL UTI and Enterobacter cloacae UTI -Given hypotension (BP 70s -80s /40s-50s) in emergency room, and concern for sepsis (likely urosepsis), pt received empiric antibiotics, daptomycin and ertapenem -Received 2 to 3 L of IV fluids, for hypotension, then required central line placement and started on vasopressors -Further management of possible sepsis per ICU -Nephrology consulted for HECTOR on CKD -Previously discussed that patient is not a candidate for HD Hyponatremia, hypomagnesemia -Magnesium replaced in ED, continue to closely monitor -Closely monitor sodium and volume status (4) Hx of total adrenalectomy: History of adrenal insufficiency due to above -Continue home Florinef and hydrocortisone -Received stress dose hydrocortisone 100 mg IV in the ED (5) Metastatic malignant melanoma: History of malignant melanoma with multiple organ metastasis including adrenal glands and bladder - first diagnosed in 2013 -Status post chemo, radiation, surgery -Currently receiving palliative therapy with ipilimumab, last dose November 20, by Dr. Richards in [place] ([facility]) -Previously followed with Dr. Culp, received keytruda, which he could not tolerate, then opdivo which was d/c'ed in 2018 d/t progression of disease -Patient now sees Dr. Richards in [place] for palliative therapy with ipilimumab (6) Diabetes mellitus, type II: -On insulin -Glycemic management per ICU protocol (7) Anemia: -History of anemia of chronic disease, due to CKD, and history of iron deficiency anemia -baseline hemoglobin about 11 -Continue to monitor (8) Sleep apnea: - CPAP HS Obesity (morbid) -BMI about 40 Code status: DNR/DNI -discussed with patient, patient agrees with antibiotic and vasopressors History of Present Illness Chief Complaint: Weakness, dysuria Primary Care Provider: Prasad Mcguire DO Mr. 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 Moore at [facility]), s/p percutaneous right nephrostomy tube, currently undergoing palliative treatment (ipilimumab ) in [place], paroxysmal atrial fibrillation, LBBB, tachybradycardia syndrome s/p pacemaker, DM type II (insulin-dependent), CKD stage IV, obesity, anemia (of chronic disease, and iron deficiency anemia), hx of ESBL UTI in 07/2019, and recent hx of Enterobacter cloacae UTI, who presents to ER with weakness, malaise, dysuria, dark and foul-smelling urine. Patient seen by [facility] nurse, recently was diagnosed with possible UTI, started antibiotic at home however patient has not been improving and not feeling well for past several days, and so nurse was trying to obtain IV access, and obtain labs however she was not able to. She recommended that patient presented to emergency room. Patient also reports recently having treatment with ipilimumab in [place] (on 11/20) and has been feeling even worse since then. Previously followed with Dr. Culp, oncologist (received keytruda, which he could not tolerate, then opdivo which was d/c'ed in 2018 d/t progression of disease). Patient now sees Dr. Richards in [place] for palliative therapy with ipilimumab. Patient denies fever. He reports feeling very weak, having some chills occasionally and "going downhill". Denies any chest pain, palpitations, shortness of breath, cough, abdominal pain, nausea or vomiting. In emergency room patient was found hypotensive, on initial evaluation blood pressure was about 70s over 40s. He received IV fluids, 2 L, with minimal improvement of blood pressure. He was found to have HECTOR on CKD, creatinine elevated at 7. Nephrology was contacted by ED physician, and recommended to continue current management, without need of dialysis at this time. Blood cultures and urine cultures were obtained, UA was not done as patient did not have enough urine for UA and only urine culture is currently pending. Given recent history of UTIs, patient was started on empiric antibiotic treatment, with ertapenem and daptomycin. Central line was placed and vasopressors were started to manage pt's hypotension. Patient is alert and oriented, says that he now feels better. Reports that his urine looks somewhat more clear since he came to hospital. Discussed the CODE STATUS with him and ICU placement, patient states that he would like to remain DNR/DNI, however he certainly wants to continue current management with antibiotics and vasopressors. Allergies Allergy/AdvReac Type Severity Reaction Status Date / Time perflutren AdvReac Intermediate GI SYMPTOMS Verified 09/29/19 16:55 propylene glycol AdvReac Intermediate GI SYMPTOMS Verified 09/29/19 16:55 simvastatin AdvReac Intermediate JOINT AND Verified 09/29/19 16:55 MUSCLE PAIN Home Medications Home Medications Medication Instructions Recorded Confirmed Type cholecalciferol (vitamin D3) 1,000 unit PO QAM 04/20/18 11/26/19 History [Vitamin D3] docusate sodium [Colace] 100 mg PO BID 04/20/18 11/26/19 History ondansetron HCl 4 mg tablet 4 mg PO Q8H PRN tab 08/10/18 11/26/19 History acetaminophen [Tylenol Extra 500 mg PO Q6H PRN 05/22/19 11/26/19 History Strength] methylprednisolone sodium succ 125 mg IM DIRECTED PRN 05/22/19 11/26/19 History triamcinolone acetonide 1 applic TOPICAL BID PRN 05/22/19 11/26/19 History Lantus Solostar U-100 Insulin 30 unit SC BID 07/02/19 11/26/19 History fludrocortisone 0.1 mg PO QAM 07/02/19 11/26/19 History hydrocortisone 10 mg PO DAILY@1200,1500 07/02/19 11/26/19 History hydrocortisone 20 mg PO DAILY@0500 07/02/19 11/26/19 History lorazepam 1 mg PO DAILY PRN 07/29/19 11/26/19 History amiodarone 200 mg PO QAM 08/17/19 11/26/19 History calcitriol 0.5 mcg PO HS 09/09/19 11/26/19 History torsemide 20 mg PO MOWEFR@0900 #30 tab 10/02/19 11/26/19 Rx amoxicillin 500 mg PO BID 11/26/19 11/26/19 History oxycodone-acetaminophen 1 tab PO Q8H PRN 11/26/19 11/26/19 History prochlorperazine maleate 5 mg PO Q6H PRN 11/26/19 11/26/19 History Past Med/Surg History Medical History Adrenal insufficiency S/P LEFT ADRENALECTOMY- ON CHRONIC HYDROCORTISONE Anxiety (Chronic) Cardiomyopathy (Chronic) Chronic kidney disease, stage 4 (severe) Degenerative disc disease (Chronic) Diabetes mellitus, type II Dyslipidemia (Chronic) H/O transfusion of packed red blood cells S/P 2 UNITS (2016) History of immunotherapy (Chronic) Keytruda x 2 Cycles (had to stop after 2nd cycle) Current Opdivo q 2 weeks (currently on hold) - started 05/2017 - 04/2018 Hypertension Metastatic malignant melanoma Morbid obesity (Chronic) Sleep apnea CPAP HS Surgical History History of colonoscopy 2016 History of esophagogastroduodenoscopy (EGD) 2017 History of tooth extraction Hx of cystoscopy 05/05/18 - BLADDER TUMOR EXCISION Hx of total adrenalectomy LEFT SIDE-- HX B/L ADRENAL MASSES; UNDERWENT LAP LEFT ADRENAL MASS EXCISION 04/14/17; PATHOLOGY METASTATIC MALIGNANT MELANOMA WITH VASCULAR INVASION Nephrostomy status (Acute) Family History Father No problems noted. Mother Colon cancer, Onset Age: 85 Chemo and Resection - Alive and well now Sister Breast cancer, Onset Age: 55 Had Radiation - Alive and well now Sister No problems noted. Sister No problems noted. Sister No problems noted. Sister No problems noted. Brother No problems noted. Son No problems noted. Son No problems noted. 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: No Beliefs That Will Affect Care: None marital status: Single Current Living Situation: Significant Other current occupational status: retired current occupation: Retired - [employer] Other Information That Helps Us Care for You: No Feels Safe at Home: Yes Safety Concerns: Feels Safe At This Time Smoking Status: Never smoker Tobacco Type: smokeless tobacco ; Do You Dip or Chew Tobacco: Yes ; Second Hand Exposure: No ; Tobacco Cessation Education Requested by Patient: No Hx Alcohol Use: No Hx Substance Use: No caffeine: Yes (2 cups of coffee/day ) during the past year weight has: remained stable Review of Systems Review of Systems: All systems reviewed & are unremarkable except as noted in HPI & below Constitutional: + fatigue, + malaise and + weakness; no fever Eyes: no problem reported Ear, Nose, Mouth, Throat: no problem reported Respiratory: no cough and no dyspnea Cardiovascular: no chest pain and no palpitations Gastrointestinal: no abdominal pain and no vomiting Genitourinary: + dysuria (Patient reports dark urine and foul smell); no flank pain Musculoskeletal: no back pain Integumentary: no rash and no lesions Neurologic: no localized weakness and no loss of sensation Psychiatric: no behavioral changes and no hallucinations Endocrine: + fatigue Hematologic / Lymphatic: as per Subjective / HPI and + easy bleeding Allergy / Immunological: no tongue swelling and no urticaria Physical Exam Physical Exam: Obese male sitting up in bed, alert and oriented, weak and ill- appearing Constitutional: WD/WN, vitals as above + ill appearing and + obese Eyes: PERRL, conjunctivae normal, anicteric sclerae EOM intact bilaterally ENMT: external ear and nose normal, oropharynx normal Neck: Central line placed R IJ Respiratory: normal respiratory effort, lungs clear to auscultation Auscultation: + rhonchi (mild bibasilar) Cardiovascular: Rate/Rhythm: regular rate Heart Sounds: no murmur Extremities: + pedal edema (1+ b/l) Chest (Breasts): Chest: normal inspection of chest Gastrointestinal (Abdomen): Inspection/Auscultation: abdomen normal to inspection and normal bowel sounds Percussion/Palpation: abdomen soft; abdomen nontender and no guarding Obese Musculoskeletal: no cyanosis or clubbing, extremities motor strength 5/5 Head/Neck/Chest: normocephalic, head atraumatic and neck supple Skin: no rashes, warm and dry Neurologic: PERRL, EOMI, accommodation nl, no face palsy, no dysarthria moves all extremities; no focal motor deficits Motor/Sensory: no tremor Psychiatric: A+Ox3, euthymic affect Genitourinary: no CVA tenderness Right nephrostomy tube placed, drains dark rivera urine, no erythema or edema or any drainage noted from nephrostomy site Results & Data Results & Data ([facility]) Vital Signs (Past 12 Hours) Vital Signs Temp Pulse Resp BP Pulse Ox 11/26/19 18:15 68 27 H 98 11/26/19 18:13 106 H 24 84/50 L 98 11/26/19 18:12 78 18 11/26/19 18:07 66 14 107/56 L 98 11/26/19 18:05 84 20 77/42 L 96 11/26/19 18:03 71 15 100 11/26/19 18:01 71 18 83/43 L 98 11/26/19 18:00 69 19 82/49 L 97 11/26/19 17:55 71 24 84/48 L 98 11/26/19 17:51 89 16 76/48 L 95 11/26/19 17:50 73 18 98 11/26/19 17:45 73 22 92/45 L 99 11/26/19 17:41 72 17 74/36 L 100 11/26/19 17:40 71 16 97 11/26/19 17:36 71 16 96 11/26/19 17:35 70 19 90/44 L 98 11/26/19 17:30 70 19 83/55 L 97 11/26/19 17:25 71 19 92/47 L 99 11/26/19 17:21 72 16 79/48 L 100 11/26/19 17:20 71 27 H 95 11/26/19 17:15 69 21 68/47 L 100 11/26/19 17:10 68 20 87/47 L 100 11/26/19 17:05 69 21 84/42 L 99 11/26/19 17:00 68 19 85/51 L 100 11/26/19 16:56 70 19 76/42 L 100 11/26/19 16:45 71 23 77/44 L 100 11/26/19 16:30 74 23 89/45 L 98 11/26/19 16:17 74 14 67/47 L 99 11/26/19 16:15 71 13 11/26/19 16:00 77 20 97 11/26/19 15:45 77 18 95 11/26/19 15:30 79 22 80/43 L 98 11/26/19 15:27 81 22 76/48 L 96 11/26/19 15:25 80 16 57/31 L 97 11/26/19 15:17 91 H 19 72/53 L 98 11/26/19 15:15 82 16 96 11/26/19 15:00 83 22 97 11/26/19 14:57 83 24 75/43 L 96 11/26/19 14:46 83 22 81/43 L 97 11/26/19 14:45 85 22 96 11/26/19 14:37 85 25 H 89/40 L 96 11/26/19 14:30 86 22 80/43 L 96 11/26/19 14:26 87 23 83/49 L 95 11/26/19 14:22 87 13 73/47 L 97 11/26/19 14:21 90 14 96 11/26/19 14:02 90 22 97 11/26/19 14:00 91 H 25 H 96 11/26/19 13:45 93 H 24 93 11/26/19 13:30 97 H 22 106/58 L 93 11/26/19 13:28 98 H 22 95/45 L 93 11/26/19 13:15 98 H 24 95 11/26/19 13:14 97 H 25 H 11/26/19 13:07 96 11/26/19 12:26 36.6 C 102 H 20 77/48 L 96 Laboratory Results 11/26/19 11/26/19 11/26/19 Range/Units 15:24 13:25 13:25 WBC (4.8-10.8) K/uL RBC (4.7-6.1) M/uL Hgb (14.0-18.0) g/dL POC Hgb (14.0-18.0) g/dl Hct (42-52) % POC Hct (42-52) % MCV (80-100) fL MCH (25-34) pg MCHC (32-36) g/dL RDW Std Deviation (36.4-46.3) fL RDW Coeff of Scottie (11.5-14.5) % Plt Count (130-400) K/uL MPV (7.4-10.4) fL Immature Gran % (Auto) % Neut % (Auto) % Lymph % (Auto) % [place] % (Auto) % Eos % (Auto) % Baso % (Auto) % Immature Gran # (Auto) (0.00-0.02) K/uL Neut # (Auto) (1.4-6.5) K/uL Lymph # (Auto) (1.2-3.4) K/uL [place] # (Auto) (0.11-0.59) K/uL Eos # (Auto) (0-0.5) K/uL Baso # (Auto) (0-0.2) K/uL PT (9.0-12.0) Seconds INR (0.9-1.1) APTT (21.0-31.0) Seconds PTT Ratio VBG pH 7.30 L (7.36-7.41) VBG pCO2 44 (38-50) mmHg VBG pO2 37 mmHg VBG HCO3 21 mmol/L VBG O2 Saturation < 60.0 % VBG Base Excess -5.1 mEq/L Barometric Pressure 731.8 mm/Hg POC Sodium (135-144) mmol/L Sodium (136-145) mmol/L POC Potassium (3.3-5.0) mmol/L Potassium (3.5-5.1) mmol/L POC Chloride (101-112) mmol/L Chloride (98-107) mmol/L Carbon Dioxide (21-32) mmol/L POC Total CO2 (24-31) mmol/L Anion Gap (3-11) POC Anion Gap (16-25) mmol/L POC BUN (7-18) mg/dl BUN (7-18) mg/dl Creatinine (0.6-1.4) mg/dl POC Creatinine (0.6-1.3) mg/dl Est Cr Clr Drug Dosing ml/min Est GFR ( Amer) Est GFR (Non-Af Amer) BUN/Creatinine Ratio (10-20) Glucose (70-99) mg/dl POC Glucose (other) (70-99) mg/dl Lactate 1.8 (0.4-2.0) mmol/L Calcium (8.5-10.1) mg/dl POC Ioniz Calcium Martinez (1.12-1.32) mmol/l Magnesium (1.8-2.4) mg/dl Total Bilirubin (0.2-1) mg/dl AST (15-37) U/L ALT (12-78) U/L Alkaline Phosphatase (45-117) U/L Troponin I (0-0.045) ng/ml Total Protein (6.4-8.2) gm/dl Albumin (3.4-5.0) gm/dl Globulin (2.5-4.0) gm/dl Albumin/Globulin Ratio (0.9-2) Procalcitonin 6.12 H (0-0.5) ng/ml 11/26/19 11/26/19 11/26/19 Range/Units 13:25 13:25 13:25 WBC 12.27 H (4.8-10.8) K/uL RBC 4.27 L (4.7-6.1) M/uL Hgb 10.7 L (14.0-18.0) g/dL POC Hgb (14.0-18.0) g/dl Hct 34.6 L (42-52) % POC Hct (42-52) % MCV 81.0 (80-100) fL MCH 25.1 (25-34) pg MCHC 30.9 L (32-36) g/dL RDW Std Deviation 52.6 H (36.4-46.3) fL RDW Coeff of Scottie 17.7 H (11.5-14.5) % Plt Count 313 (130-400) K/uL MPV 9.7 (7.4-10.4) fL Immature Gran % (Auto) 0.3 % Neut % (Auto) 79.0 % Lymph % (Auto) 9.2 % [place] % (Auto) 10.3 % Eos % (Auto) 1.0 % Baso % (Auto) 0.2 % Immature Gran # (Auto) 0.04 H (0.00-0.02) K/uL Neut # (Auto) 9.70 H (1.4-6.5) K/uL Lymph # (Auto) 1.13 L (1.2-3.4) K/uL [place] # (Auto) 1.26 H (0.11-0.59) K/uL Eos # (Auto) 0.12 (0-0.5) K/uL Baso # (Auto) 0.02 (0-0.2) K/uL PT 12.6 H (9.0-12.0) Seconds INR 1.2 H (0.9-1.1) APTT 41.2 H (21.0-31.0) Seconds PTT Ratio 1.5 VBG pH (7.36-7.41) VBG pCO2 (38-50) mmHg VBG pO2 mmHg VBG HCO3 mmol/L VBG O2 Saturation % VBG Base Excess mEq/L Barometric Pressure mm/Hg POC Sodium (135-144) mmol/L Sodium 129 L (136-145) mmol/L POC Potassium (3.3-5.0) mmol/L Potassium 5.2 H (3.5-5.1) mmol/L POC Chloride (101-112) mmol/L Chloride 96 L (98-107) mmol/L Carbon Dioxide 24 (21-32) mmol/L POC Total CO2 (24-31) mmol/L Anion Gap 10.0 (3-11) POC Anion Gap (16-25) mmol/L POC BUN (7-18) mg/dl BUN 53 H (7-18) mg/dl Creatinine 7.05 H* (0.6-1.4) mg/dl POC Creatinine (0.6-1.3) mg/dl Est Cr Clr Drug Dosing 11.8 ml/min Est GFR ( Amer) 8.2 Est GFR (Non-Af Amer) 7.1 BUN/Creatinine Ratio 7.5 L (10-20) Glucose 119 H (70-99) mg/dl POC Glucose (other) (70-99) mg/dl Lactate (0.4-2.0) mmol/L Calcium 8.7 (8.5-10.1) mg/dl POC Ioniz Calcium Martinez (1.12-1.32) mmol/l Magnesium 1.7 L (1.8-2.4) mg/dl Total Bilirubin 1.0 (0.2-1) mg/dl AST 17 (15-37) U/L ALT 20 (12-78) U/L Alkaline Phosphatase 88 (45-117) U/L Troponin I < 0.015 (0-0.045) ng/ml Total Protein 6.7 (6.4-8.2) gm/dl Albumin 2.4 L (3.4-5.0) gm/dl Globulin 4.3 H (2.5-4.0) gm/dl Albumin/Globulin Ratio 0.6 L (0.9-2) Procalcitonin (0-0.5) ng/ml 11/26/19 Range/Units 13:19 WBC (4.8-10.8) K/uL RBC (4.7-6.1) M/uL Hgb (14.0-18.0) g/dL POC Hgb 12.9 L (14.0-18.0) g/dl Hct (42-52) % POC Hct 38 L (42-52) % MCV (80-100) fL MCH (25-34) pg MCHC (32-36) g/dL RDW Std Deviation (36.4-46.3) fL RDW Coeff of Scottie (11.5-14.5) % Plt Count (130-400) K/uL MPV (7.4-10.4) fL Immature Gran % (Auto) % Neut % (Auto) % Lymph % (Auto) % [place] % (Auto) % Eos % (Auto) % Baso % (Auto) % Immature Gran # (Auto) (0.00-0.02) K/uL Neut # (Auto) (1.4-6.5) K/uL Lymph # (Auto) (1.2-3.4) K/uL [place] # (Auto) (0.11-0.59) K/uL Eos # (Auto) (0-0.5) K/uL Baso # (Auto) (0-0.2) K/uL PT (9.0-12.0) Seconds INR (0.9-1.1) APTT (21.0-31.0) Seconds PTT Ratio VBG pH (7.36-7.41) VBG pCO2 (38-50) mmHg VBG pO2 mmHg VBG HCO3 mmol/L VBG O2 Saturation % VBG Base Excess mEq/L Barometric Pressure mm/Hg POC Sodium 127 L (135-144) mmol/L Sodium (136-145) mmol/L POC Potassium 5.2 H (3.3-5.0) mmol/L Potassium (3.5-5.1) mmol/L POC Chloride 96 L (101-112) mmol/L Chloride (98-107) mmol/L Carbon Dioxide (21-32) mmol/L POC Total CO2 20 L (24-31) mmol/L Anion Gap (3-11) POC Anion Gap 17.0 (16-25) mmol/L POC BUN 47 H (7-18) mg/dl BUN (7-18) mg/dl Creatinine (0.6-1.4) mg/dl POC Creatinine 7.4 H* (0.6-1.3) mg/dl Est Cr Clr Drug Dosing ml/min Est GFR ( Amer) Est GFR (Non-Af Amer) BUN/Creatinine Ratio (10-20) Glucose (70-99) mg/dl POC Glucose (other) 119 H (70-99) mg/dl Lactate (0.4-2.0) mmol/L Calcium (8.5-10.1) mg/dl POC Ioniz Calcium Martinez 1.03 L (1.12-1.32) mmol/l Magnesium (1.8-2.4) mg/dl Total Bilirubin (0.2-1) mg/dl AST (15-37) U/L ALT (12-78) U/L Alkaline Phosphatase (45-117) U/L Troponin I (0-0.045) ng/ml Total Protein (6.4-8.2) gm/dl Albumin (3.4-5.0) gm/dl Globulin (2.5-4.0) gm/dl Albumin/Globulin Ratio (0.9-2) Procalcitonin (0-0.5) ng/ml Diagnostic Findings CT abdomen/pelvis 11/26/2019 IMPRESSION: 1. Progression of presumed retroperitoneal and peripancreatic lymphadenopathy. This is suboptimally assessed with noncontrast technique. Presumably this relates to the reported malignancy. 2. Increasing size of a right suprarenal nodule, especially in comparison to prior CT from 06/14/2019. This may represent recurrence of the prior right adrenal gland nodule evident on MR from 04/12/2018. Attention on follow-up. 3. Persistent small pericardial effusion. 4. Hepatic steatosis. 5. Polycystic kidneys. Distention of the left renal collecting system concerning for mild left hydronephrosis. 6. 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 CXR 11/26/2019 FINDINGS: Left subclavian pacer with leads to the right atrium and right ventricular apex. Surgical clips noted in the right axilla. Atherosclerosis of the aortic arch. Cardiac silhouette normal in size. Slight asymmetric density of the lungs with more radiolucency on the right. This appearance is similar to prior. This may relate to differential overlapping soft tissues. No focal opacity. No large effusion or pneumothorax. Degenerative changes of the thoracic spine. Upper abdomen normal. Code Status & VTE Plan VTE Prophylaxis Plan VTE Prophylaxis will be ordered: Yes (1) Acute on chronic renal failure Chronic kidney disease stage: stage 4 (severe)
[2019-11-26] MEDS ORDERED: DAPTOMYCIN CONSULT ACTIVE PRN (19:30)
[2019-11-26] MEDS ORDERED: ERTAPENEM CONSULT ACTIVE PRN (19:31)
--- NOTE | 2019-11-26 19:36 | Critical Care Consultation ---
Date of Consultation November 26, 2019 Assessment & Plan (1) Admitted to intensive care unit: Reason Critically Ill: 74-year-old male with metastatic melanoma presents to the ICU in acute renal failure, septic shock, requiring vasopressors. Metastatic melanoma, stage IVinitially diagnosed 2013, now affecting multiple organs including adrenal glands, bladder, pancreas -Currently undergoing palliative chemo with ipilimumab with [facility] in [place], last dose November 20 -Has underwent total adrenalectomy, along with cystectomy -CT abdomen shows progression of presumed retroperitoneal and peripancreatic lymphadenopathy -Patient appears to understand that his prognosis is poor as his CODE STATUS is DNR/DNI, however would like to proceed with current therapy as he has had good outcome on previous admission Neuro - [facility] ICU: Negative Cardiac - LBBB/tachybradycardia syndrome/PAFs/p pacer/AICD -Continue amiodarone -Monitor on telemetry Hypotension/shocksuspected urosepsis versus hypovolemia -Patient was bolused 3 L NSS, remained hypotensive and now on Levophed drip, weaning as tolerated -Patient with history of recurrent UTIs, had elevated pro Franky of 6, lactate negative, see ID for management -Patient does have history of adrenal insufficiency and was given 100 mg hydrocortisone in the ED without improvement and BP, will continue steroids -Echo from 08/19/2019, EF 55 to 60% -We will continue broad-spectrum antibiotics and vasopressor support with map goals greater 65 -Continue IV fluid resuscitation Respiratory - Currently maintaining sats on room air History of LILLIANA, CPAP HS Continuous monitoring on pulse ox GI - Diabetic, low potassium diet RENAL/LYTES - Acute on chronic renal failurepatient presents with creatinine 7 (baseline at 2), mild metabolic acidosis, potassium 5.2 -Given patient's systolics of 70 on admission, likely ATN from hypotension -Abdominal CT findings did reveal distention of the left renal collecting system with concern for mild left hydronephrosis -Findings discussed with urology concerning need for left nephrostomy, given hydronephrosis is mild did not feel that this was the likely culprit as patient was hypotensive -No current need for acute intervention at this time -Nephrology consulted, patient was not candidate for dialysis on last admission due to advanced metastatic cancer; will proceed with medical management -continue with levo for map management for maps greater than 65 and IV fluid resuscitation. Patient did receive 3 L crystalloid bolus in ED and has had positive response in urine output -We will avoid nephrotoxins -Holding torsemide -Follow urology and nephrology recommendations -Monitor routine BMPs Hyponatremiamild with sodium 129 -We will continue fluid resuscitation with isotonic solution -Monitor - Right nephrostomyappears to be working without issue as nephrostomy bag is full of dark rivera urine -Monitor strict I's and O's -Suspected UTI, see treatment below ENDO - DM type IIpatient insulin-dependent, last A1c 6.0 in August -Continue sliding scale/Lantus -ICU hyperglycemic protocol Adrenal insufficiency following total adrenalectomy -patient was given stress dose hydrocortisone in the ED, remained hypotensive and requiring drip -Continue hydrocortisone, fludrocortisone HEME - Anemiahistory of anemia of chronic disease and iron deficiency anemia, received blood transfusion last admission -Currently H&H stable, will continue to monitor with routine CBCs and transfuse if indicated ID - Sepsis?Likely urosepsis as patient has had multiple UTIs including ESBL -Blood cultures urine culture pending -Procalcitonin elevated 6, mild leukocytosis which could be attributed to steroids, afebrile, lactate within normal limits -Continue ertapenem and daptomycin, narrow with culture results LINES/IV ACCESS - CVC right IJ, right nephrostomy tube DVT PROPHYLAXIS - SCDs, heparin CODE STATUS: DNR/DNI I have personally spent 60 minutes of critical care time in the direct management of this patient. This is a life/limb threatening event. This includes time spent evaluating patient, direct bedside care, chart review, placing orders, interpretation of diagnostic studies, discussion with consultants, patient, and family members, as well as other required patient management activities. This time is exclusive of all separately billable procedures, and teaching time and separate from and in addition to any other critical care service time. Thank you for allowing us to participate in the care of this patient. Please refer to my attending physician's documentation for any further recommendations. (2) Anemia: (3) Hypotension: (4) Diabetes mellitus, type II: (5) UTI (urinary tract infection): (6) Acute on chronic renal failure: (7) Nephrostomy status: (8) Left bundle branch block: (9) Tachy-oscar syndrome: (10) Paroxysmal atrial fibrillation: (11) Metastatic malignant melanoma: (12) Septic shock: Supervising Physician Co-Signing Physician Notes Patient seen and examined. Discussed with attending hospitalist and with critical care nurse practitioner at bedside. EMR reviewed. 74-year-old male admitted to the hospital with presumed urosepsis. He has a history of metastatic melanoma is currently under going chemotherapy. He presented with fatigue. He was found to be in acute renal failure with a creatinine of 7. He has a history of obstructive uropathy and is status post right nephrostomy tube. He states the tube has been having adequate output. He does not report fevers or chills. He has a history of Enterobacter, VRE, and E. coli UTIs previously. He was seen in the emergency room and developed significant hypotension which required placement of a central line and initiation of vasopressor agents. He was also found to have a creatinine of 7. He was told during a prior admission that he was not a candidate for dialysis. He did have some mild hydronephrosis on the left side on CT scanning this admission. Nephrology was contacted and felt the patient could be managed safely here and not require nephrostomy tube. He is awake alert and conversant. He received ertapenem and daptomycin in the emergency room for presumed UTI. Urinalysis is pending. He has a trace history of adrenal insufficiency due to adrenalectomy and is currently on replacement steroids. He did receive stress dose hydrocortisone in the emergency room. Continue with antibiotics and volume resuscitation. Renal failure management per nephrology has been consulted. Continue to wean pressors as tolerated. He may benefit from some additional crystalloid. Judicious electrolyte replacement recommended. The patient's overall prognosis is guarded. He does not want to be intubated or undergo CPR in the event of a cardiopulmonary arrest which I think is reasonable. We will continue pressor agents and see how he responds. History of Present Illness History of Present Illness Mr. Martinez is a 74-year-old male with extensive PMH including active stage IV metastatic melanoma with multiple organ involvement s/p chemo, radiation, and left adrenalectomy. In April 2019, patient underwent bladder resection and percutaneous right nephrostomy tube. He is currently undergoing palliative chemo (ipilimumab). Other history includes PAF, LBBB, tachybradycardia syndrome status post pacemaker, DM type II, CKD stage IV, anemia, and multiple UTIs including ESBL UTI and 08/08 and recent Enterobacter UTI. He presented to the emergency department following home health visit which patient presented with weakness, malaise and dark foul-smelling urine. He was found to be hypotensive as well, and an acute renal failure with a creatinine of 7. On a prior admission, patient was found to not be candidate for dialysis due to advanced metastatic cancer. CT abdomen did reveal mild left hydronephrosis, I discussed his case with the [facility] urology who expressed the patient would not likely benefit from left nephrostomy at this time. Given that's hydronephrosis is mild is likely that acute renal failure is secondary to hypotension. Patient was bolused 3 L NSS in the ED but remained hypotensive. Per discussion with the ED physician, patient was agreeable to medical management as he had showed improvement on his last admission. However, patient's CODE STATUS remains DNR/DNI. He did consent to central line, and was started on Levophed in the ED. Patient was then transferred to the ICU for further medical management. On arrival to the ICU, patient is alert and oriented and appears comfortable on room air. Blood pressure is within normal limits of vasopressor support. He states that his weakness and malaise have significantly improved since he in itially presented to the ED. He currently denies headache, dizziness, fevers, sore throat, shortness of breath, palpitations, chest pain, abdominal pain, nausea or vomiting, or diarrhea. His nephrostomy bag is full with dark rivera urine since he was bolused with fluid in the ED. We will continue to manage in ICU for now as patient is on vasoactive drips. Allergies Allergy/AdvReac Type Severity Reaction Status Date / Time perflutren AdvReac Intermediate GI SYMPTOMS Verified 09/29/19 16:55 propylene glycol AdvReac Intermediate GI SYMPTOMS Verified 09/29/19 16:55 simvastatin AdvReac Intermediate JOINT AND Verified 09/29/19 16:55 MUSCLE PAIN Home Medications Home Medications Medication Instructions Recorded Confirmed Type cholecalciferol (vitamin D3) 1,000 unit PO QAM 04/20/18 11/26/19 History [Vitamin D3] docusate sodium [Colace] 100 mg PO BID 04/20/18 11/26/19 History ondansetron HCl 4 mg tablet 4 mg PO Q8H PRN tab 08/10/18 11/26/19 History acetaminophen [Tylenol Extra 500 mg PO Q6H PRN 05/22/19 11/26/19 History Strength] methylprednisolone sodium succ 125 mg IM DIRECTED PRN 05/22/19 11/26/19 History triamcinolone acetonide 1 applic TOPICAL BID PRN 05/22/19 11/26/19 History Lantus Solostar U-100 Insulin 30 unit SC BID 07/02/19 11/26/19 History fludrocortisone 0.1 mg PO QAM 07/02/19 11/26/19 History hydrocortisone 10 mg PO DAILY@1200,1500 07/02/19 11/26/19 History hydrocortisone 20 mg PO DAILY@0500 07/02/19 11/26/19 History lorazepam 1 mg PO DAILY PRN 07/29/19 11/26/19 History amiodarone 200 mg PO QAM 08/17/19 11/26/19 History calcitriol 0.5 mcg PO HS 09/09/19 11/26/19 History torsemide 20 mg PO MOWEFR@0900 #30 tab 10/02/19 11/26/19 Rx amoxicillin 500 mg PO BID 11/26/19 11/26/19 History oxycodone-acetaminophen 1 tab PO Q8H PRN 11/26/19 11/26/19 History prochlorperazine maleate 5 mg PO Q6H PRN 11/26/19 11/26/19 History Patient History Medical History Adrenal insufficiency S/P LEFT ADRENALECTOMY- ON CHRONIC HYDROCORTISONE Anxiety (Chronic) Cardiomyopathy (Chronic) Chronic kidney disease, stage 4 (severe) Degenerative disc disease (Chronic) Diabetes mellitus, type II Dyslipidemia (Chronic) H/O transfusion of packed red blood cells S/P 2 UNITS (2016) History of immunotherapy (Chronic) Keytruda x 2 Cycles (had to stop after 2nd cycle) Current Opdivo q 2 weeks (currently on hold) - started 05/2017 - 04/2018 Hypertension Metastatic malignant melanoma Morbid obesity (Chronic) Sleep apnea CPAP HS Surgical History History of colonoscopy 2017 History of esophagogastroduodenoscopy (EGD) 2017 History of tooth extraction Hx of cystoscopy 05/05/18 - BLADDER TUMOR EXCISION Hx of total adrenalectomy LEFT SIDE-- HX B/L ADRENAL MASSES; UNDERWENT LAP LEFT ADRENAL MASS EXCISION 04/14/17; PATHOLOGY METASTATIC MALIGNANT MELANOMA WITH VASCULAR INVASION Nephrostomy status (Acute) Family History Father No problems noted. Mother Colon cancer, Onset Age: 85 Chemo and Resection - Alive and well now Sister Breast cancer, Onset Age: 55 Had Radiation - Alive and well now Sister No problems noted. Sister No problems noted. Sister No problems noted. Sister No problems noted. Brother No problems noted. Son No problems noted. Son No problems noted. Social History Preferred Language: Beninese Communication Ability: Effective Visual Impairment: Limited Hearing Ability: Hard of Hearing Loss Prevention Manager Required: No Beliefs That Will Affect Care: None marital status: Single Current Living Situation: Significant Other current occupational status: retired current occupation: Retired - [employer] Other Information That Helps Us Care for You: No Feels Safe at Home: Yes Safety Concerns: Feels Safe At This Time Smoking Status: Never smoker Tobacco Type: smokeless tobacco ; Do You Dip or Chew Tobacco: Yes ; Second Hand Exposure: No ; Tobacco Cessation Education Requested by Patient: No Hx Alcohol Use: No Hx Substance Use: No caffeine: Yes (2 cups of coffee/day ) during the past year weight has: remained stable Review of Systems Review of Systems: All systems reviewed & are unremarkable except as noted in HPI & below Physical Exam Constitutional: cooperative, comfortable and + overweight Eyes: PERRL, conjunctivae normal, anicteric sclerae ENMT: external ear and nose normal, oropharynx normal Neck: trachea midline, no thyromegaly Respiratory: normal respiratory effort, lungs clear to auscultation Cardiovascular: RRR, no murmur, no edema Vessels: no JVD Extremities: normal capillary refill and + pedal edema Gastrointestinal (Abdomen): normal bowel sounds, soft, nontender, no hepatosplenomegaly Skin: no rashes, warm and dry Neurologic: PERRL, EOMI, accommodation nl, no face palsy, no dysarthria Psychiatric: A+Ox3, euthymic affect Genitourinary: Right nephrostomy tube Results & Data Results & Data ([facility]) Vital Signs (Past 12 Hours) Vital Signs Temp Pulse Resp BP Pulse Ox 11/26/19 19:05 69 20 110/52 L 97 11/26/19 19:01 69 17 108/60 98 11/26/19 19:00 69 16 99 11/26/19 18:55 71 16 111/57 L 99 11/26/19 18:50 99 H 22 118/60 98 11/26/19 18:45 69 20 117/56 L 98 11/26/19 18:40 68 18 112/56 L 95 11/26/19 18:35 75 23 92/53 L 100 11/26/19 18:31 70 18 112/52 L 96 11/26/19 18:30 98 H 18 96 11/26/19 18:25 71 20 113/52 L 11/26/19 18:20 66 18 120/61 98 11/26/19 18:17 67 19 111/51 L 99 11/26/19 18:15 68 27 H 98 11/26/19 18:13 106 H 24 84/50 L 98 11/26/19 18:12 78 18 11/26/19 18:07 66 14 107/56 L 98 11/26/19 18:05 84 20 77/42 L 96 11/26/19 18:03 71 15 100 11/26/19 18:01 71 18 83/43 L 98 11/26/19 18:00 69 19 82/49 L 97 11/26/19 17:55 71 24 84/48 L 98 11/26/19 17:51 89 16 76/48 L 95 11/26/19 17:50 73 18 98 11/26/19 17:45 73 22 92/45 L 99 11/26/19 17:41 72 17 74/36 L 100 11/26/19 17:40 71 16 97 11/26/19 17:36 71 16 96 11/26/19 17:35 70 19 90/44 L 98 11/26/19 17:30 70 19 83/55 L 97 11/26/19 17:25 71 19 92/47 L 99 11/26/19 17:21 72 16 79/48 L 100 11/26/19 17:20 71 27 H 95 11/26/19 17:15 69 21 68/47 L 100 11/26/19 17:10 68 20 87/47 L 100 11/26/19 17:05 69 21 84/42 L 99 11/26/19 17:00 68 19 85/51 L 100 11/26/19 16:56 70 19 76/42 L 100 11/26/19 16:45 71 23 77/44 L 100 11/26/19 16:30 74 23 89/45 L 98 11/26/19 16:17 74 14 67/47 L 99 11/26/19 16:15 71 13 11/26/19 16:00 77 20 97 11/26/19 15:45 77 18 95 11/26/19 15:30 79 22 80/43 L 98 11/26/19 15:27 81 22 76/48 L 96 11/26/19 15:25 80 16 57/31 L 97 11/26/19 15:17 91 H 19 72/53 L 98 11/26/19 15:15 82 16 96 11/26/19 15:00 83 22 97 11/26/19 14:57 83 24 75/43 L 96 11/26/19 14:46 83 22 81/43 L 97 11/26/19 14:45 85 22 96 11/26/19 14:37 85 25 H 89/40 L 96 11/26/19 14:30 86 22 80/43 L 96 11/26/19 14:26 87 23 83/49 L 95 11/26/19 14:22 87 13 73/47 L 97 11/26/19 14:21 90 14 96 11/26/19 14:02 90 22 97 11/26/19 14:00 91 H 25 H 96 11/26/19 13:45 93 H 24 93 11/26/19 13:30 97 H 22 106/58 L 93 11/26/19 13:28 98 H 22 95/45 L 93 11/26/19 13:15 98 H 24 95 11/26/19 13:14 97 H 25 H 11/26/19 13:07 96 11/26/19 12:26 36.6 C 102 H 20 77/48 L 96 Coding Level of Care Code Critical Care 1st 30-74 mins Diagnoses Admitted to intensive care unit Z78.9 Anemia D64.9 Hypotension I95.9 Diabetes mellitus, type II E11.9 UTI (urinary tract infection) N39.0 Acute on chronic renal failure N17.9; N18.9 Chronic kidney disease stage: stage 4 (severe) Nephrostomy status Z93.6 Left bundle branch block I44.7 Tachy-oscar syndrome I49.5 Paroxysmal atrial fibrillation I48.0 Metastatic malignant melanoma C79.9 Septic shock A41.9; R65.21 (1) Acute on chronic renal failure Chronic kidney disease stage: stage 4 (severe)
--- NOTE | 2019-11-26 19:44 | Critical Care Consultation ---
Date of Consultation November 26, 2019 Supervising Physician Co-Signing Physician Notes Patient seen and examined. Discussed with attending hospitalist and with critical care nurse practitioner at bedside. EMR reviewed. 74-year-old male admitted to the hospital with presumed urosepsis. He has a history of metastatic melanoma is currently under going chemotherapy. He presented with fatigue. He was found to be in acute renal failure with a creatinine of 7. He has a history of obstructive uropathy and is status post right nephrostomy tube. He states the tube has been having adequate output. He does not report fevers or chills. He has a history of Enterobacter, VRE, and E. coli UTIs previously. He was seen in the emergency room and developed significant hypotension which required placement of a central line and initiation of vasopressor agents. He was also found to have a creatinine of 7. He was told during a prior admission that he was not a candidate for dialysis. He did have some mild hydronephrosis on the left side on CT scanning this admission. Nephrology was contacted and felt the patient could be managed safely here and not require nephrostomy tube. He is awake alert and conversant. He received ertapenem and daptomycin in the emergency room for presumed UTI. Urinalysis is pending. He has a trace history of adrenal insufficiency due to adrenalectomy and is currently on replacement steroids. He did receive stress dose hydrocortisone in the emergency room. Continue with antibiotics and volume resuscitation. Renal failure management per nephrology has been consulted. Continue to wean pressors as tolerated. He may benefit from some additional crystalloid. Judicious electrolyte replacement recommended. The patient's overall prognosis is guarded. He does not want to be intubated or undergo CPR in the event of a cardiopulmonary arrest which I think is reasonable. We will continue pressor agents and see how he responds. History of Present Illness Attending Physician: Prince Vail MD Allergies Allergy/AdvReac Type Severity Reaction Status Date / Time perflutren AdvReac Intermediate GI SYMPTOMS Verified 09/29/19 16:55 propylene glycol AdvReac Intermediate GI SYMPTOMS Verified 09/29/19 16:55 simvastatin AdvReac Intermediate JOINT AND Verified 09/29/19 16:55 MUSCLE PAIN Home Medications Home Medications Medication Instructions Recorded Confirmed Type cholecalciferol (vitamin D3) 1,000 unit PO QAM 04/20/18 11/26/19 History [Vitamin D3] docusate sodium [Colace] 100 mg PO BID 04/20/18 11/26/19 History ondansetron HCl 4 mg tablet 4 mg PO Q8H PRN tab 08/10/18 11/26/19 History acetaminophen [Tylenol Extra 500 mg PO Q6H PRN 05/22/19 11/26/19 History Strength] methylprednisolone sodium succ 125 mg IM DIRECTED PRN 05/22/19 11/26/19 History triamcinolone acetonide 1 applic TOPICAL BID PRN 05/22/19 11/26/19 History Lantus Solostar U-100 Insulin 30 unit SC BID 07/02/19 11/26/19 History fludrocortisone 0.1 mg PO QAM 07/02/19 11/26/19 History hydrocortisone 10 mg PO DAILY@1200,1500 07/02/19 11/26/19 History hydrocortisone 20 mg PO DAILY@0500 07/02/19 11/26/19 History lorazepam 1 mg PO DAILY PRN 07/29/19 11/26/19 History amiodarone 200 mg PO QAM 08/17/19 11/26/19 History calcitriol 0.5 mcg PO HS 09/09/19 11/26/19 History torsemide 20 mg PO MOWEFR@0900 #30 tab 10/02/19 11/26/19 Rx amoxicillin 500 mg PO BID 11/26/19 11/26/19 History oxycodone-acetaminophen 1 tab PO Q8H PRN 11/26/19 11/26/19 History prochlorperazine maleate 5 mg PO Q6H PRN 11/26/19 11/26/19 History Patient History Medical History Adrenal insufficiency S/P LEFT ADRENALECTOMY- ON CHRONIC HYDROCORTISONE Anxiety (Chronic) Cardiomyopathy (Chronic) Chronic kidney disease, stage 4 (severe) Degenerative disc disease (Chronic) Diabetes mellitus, type II Dyslipidemia (Chronic) H/O transfusion of packed red blood cells S/P 2 UNITS (2016) History of immunotherapy (Chronic) Keytruda x 2 Cycles (had to stop after 2nd cycle) Current Opdivo q 2 weeks (currently on hold) - started 05/2017 - 04/2018 Hypertension Metastatic malignant melanoma Morbid obesity (Chronic) Sleep apnea CPAP HS Surgical History History of colonoscopy 2016 History of esophagogastroduodenoscopy (EGD) 2017 History of tooth extraction Hx of cystoscopy 05/05/18 - BLADDER TUMOR EXCISION Hx of total adrenalectomy LEFT SIDE-- HX B/L ADRENAL MASSES; UNDERWENT LAP LEFT ADRENAL MASS EXCISION 04/14/17; PATHOLOGY METASTATIC MALIGNANT MELANOMA WITH VASCULAR INVASION Nephrostomy status (Acute) Family History Father No problems noted. Mother Colon cancer, Onset Age: 85 Chemo and Resection - Alive and well now Sister Breast cancer, Onset Age: 55 Had Radiation - Alive and well now Sister No problems noted. Sister No problems noted. Sister No problems noted. Sister No problems noted. Brother No problems noted. Son No problems noted. Son No problems noted. Social History Preferred Language: Malian Communication Ability: Effective Visual Impairment: Limited Hearing Ability: Hard of Hearing Cellophane Bath Mixer Required: No Beliefs That Will Affect Care: None marital status: Single Current Living Situation: Significant Other current occupational status: retired current occupation: Retired - [employer] Feels Safe at Home: Yes Smoking Status: Never smoker Tobacco Type: smokeless tobacco ; Second Hand Exposure: No ; Hx Alcohol Use: No Hx Substance Use: No caffeine: Yes (2 cups of coffee/day ) during the past year weight has: remained stable Results & Data Results & Data ([facility]) Vital Signs (Past 12 Hours) Vital Signs Temp Pulse Resp BP Pulse Ox 11/26/19 19:05 69 20 110/52 L 97 11/26/19 19:01 69 17 108/60 98 11/26/19 19:00 69 16 99 11/26/19 18:55 71 16 111/57 L 99 11/26/19 18:50 99 H 22 118/60 98 11/26/19 18:45 69 20 117/56 L 98 11/26/19 18:40 68 18 112/56 L 95 11/26/19 18:35 75 23 92/53 L 100 11/26/19 18:31 70 18 112/52 L 96 11/26/19 18:30 98 H 18 96 11/26/19 18:25 71 20 113/52 L 11/26/19 18:20 66 18 120/61 98 11/26/19 18:17 67 19 111/51 L 99 11/26/19 18:15 68 27 H 98 11/26/19 18:13 106 H 24 84/50 L 98 11/26/19 18:12 78 18 11/26/19 18:07 66 14 107/56 L 98 11/26/19 18:05 84 20 77/42 L 96 11/26/19 18:03 71 15 100 11/26/19 18:01 71 18 83/43 L 98 11/26/19 18:00 69 19 82/49 L 97 11/26/19 17:55 71 24 84/48 L 98 11/26/19 17:51 89 16 76/48 L 95 11/26/19 17:50 73 18 98 11/26/19 17:45 73 22 92/45 L 99 11/26/19 17:41 72 17 74/36 L 100 11/26/19 17:40 71 16 97 11/26/19 17:36 71 16 96 11/26/19 17:35 70 19 90/44 L 98 11/26/19 17:30 70 19 83/55 L 97 11/26/19 17:25 71 19 92/47 L 99 11/26/19 17:21 72 16 79/48 L 100 11/26/19 17:20 71 27 H 95 11/26/19 17:15 69 21 68/47 L 100 11/26/19 17:10 68 20 87/47 L 100 11/26/19 17:05 69 21 84/42 L 99 11/26/19 17:00 68 19 85/51 L 100 11/26/19 16:56 70 19 76/42 L 100 11/26/19 16:45 71 23 77/44 L 100 11/26/19 16:30 74 23 89/45 L 98 11/26/19 16:17 74 14 67/47 L 99 11/26/19 16:15 71 13 11/26/19 16:00 77 20 97 11/26/19 15:45 77 18 95 11/26/19 15:30 79 22 80/43 L 98 11/26/19 15:27 81 22 76/48 L 96 11/26/19 15:25 80 16 57/31 L 97 11/26/19 15:17 91 H 19 72/53 L 98 11/26/19 15:15 82 16 96 11/26/19 15:00 83 22 97 11/26/19 14:57 83 24 75/43 L 96 11/26/19 14:46 83 22 81/43 L 97 11/26/19 14:45 85 22 96 11/26/19 14:37 85 25 H 89/40 L 96 11/26/19 14:30 86 22 80/43 L 96 11/26/19 14:26 87 23 83/49 L 95 11/26/19 14:22 87 13 73/47 L 97 11/26/19 14:21 90 14 96 11/26/19 14:02 90 22 97 11/26/19 14:00 91 H 25 H 96 11/26/19 13:45 93 H 24 93 11/26/19 13:30 97 H 22 106/58 L 93 11/26/19 13:28 98 H 22 95/45 L 93 11/26/19 13:15 98 H 24 95 11/26/19 13:14 97 H 25 H 11/26/19 13:07 96 11/26/19 12:26 36.6 C 102 H 20 77/48 L 96 Coding
[2019-11-26] MEDS ORDERED: TRIAMCINOLONE ACET 0.1% CR 15 GM TUBE TOP PRN (19:54)
[2019-11-26] MEDS: SODIUM CHLORIDE 0.9% 1000ML 1,000 ML IV SCH (20:33)
[2019-11-26] MEDS: CALCITRIOL 0.25 MCG CAPSULE PO SCH (21:57)
[2019-11-26] MEDS: DOCUSATE SODIUM 100 MG CAP PO SCH (21:57)
[2019-11-26] MEDS: INSULIN GLARGINE SOLOSTAR 100 UNITS/ML 3 ML PEN SC SCH (21:58)
--- NOTE | 2019-11-26 22:46 | Electrocardiogram Report ---
Test Reason : Blood Pressure : / mmHG Vent. Rate : 098 BPM Atrial Rate : 098 BPM P-R Int : 164 ms QRS Dur : 142 ms QT Int : 382 ms P-R-T Axes : 059 003 093 degrees QTc Int : 487 ms Normal sinus rhythm Left bundle branch block Abnormal ECG When compared with ECG of 11-SEP-2019 06:57, No significant change Confirmed by Milton Browning ([id number]) on 11/26/2019 10:46:39 PM Referred By: REFERRED SELF Confirmed By:Milton Browning
[2019-11-26] MEDS ORDERED: ONDANSETRON INJ 2 MG/ML 2 ML VIAL IV PRN (22:57)
[2019-11-26] MEDS: OXYCODONE/ACETAMINOPHEN 5mg/325mg TAB PO PRN (23:03)
[2019-11-27] MEDS: SODIUM CHLORIDE 0.9% 1000ML 1,000 ML IV SCH ×2 (03:01→11:43)
[2019-11-27 04:37] LABS: Basophils # (auto) 0.01 K/uL (0-0.2); Basophils % (auto) 0.1 %; Eosinophils # (auto) 0.01 K/uL (0-0.5); Eosinophils % (auto) 0.1 %; Hematocrit (blood only) 29.8 % (42-52); Hemoglobin 9.2 g/dL (14.0-18.0); Immature Granulocytes # (auto) 0.03 K/uL (0.00-0.02); Immature Granulocytes % (auto) 0.3 %; Lymphocytes # (auto) 1.12 K/uL (1.2-3.4); Lymphocytes % (auto) 12.1 %; Mean Corpuscular Hemoglobin 25.2 pg (25-34); Mean Corpuscular Hgb Conc 30.9 g/dL (32-36); Mean Corpuscular Volume 81.6 fL (80-100); Monocytes # (auto) 0.95 K/uL (0.11-0.59); Monocytes % (auto) 10.3 %; Neutrophils # (auto) 7.14 K/uL (1.4-6.5); Neutrophils % (auto) 77.1 %; Platelet Count 296 K/uL (130-400); RDW Coefficient of Variation 17.5 % (11.5-14.5); Red Blood Count 3.65 M/uL (4.7-6.1); White Blood Count 9.26 K/uL (4.8-10.8)
[2019-11-27 04:46] LABS: Base Excess VBG -5.9 mEq/L; Oxygen Saturation VBG 68.3 %; pH VBG 7.27 (7.36-7.41)
[2019-11-27] MEDS ORDERED: HYDROCORTISONE 10 MG TAB PO SCH ×2 (05:00→12:00)
[2019-11-27 05:06] LABS: Albumin Globulin Ratio 0.5 (0.9-2); Albumin Level 1.9 gm/dl (3.4-5.0); Bilirubin,Total 0.4 mg/dl (0.2-1); Calcium 7.9 mg/dl (8.5-10.1); Creatinine Clr Calc Pharmacy 15.3 ml/min; Est GFR (African American) 10.8; Est GFR (Non-African American) 9.3; Globulin 3.8 gm/dl (2.5-4.0); Magnesium 2.4 mg/dl (1.8-2.4); Phosphorus 4.5 mg/dl (2.5-4.9); Potassium 4.6 mmol/L (3.5-5.1); Total Protein 5.7 gm/dl (6.4-8.2)
[2019-11-27] MEDS ORDERED: SODIUM BICARB 8.4% INJ 50 MEQ/50 ML SYR IV ONE (07:45)
--- NOTE | 2019-11-27 07:51 | Critical Care Progress Note ---
Date of Service November 27, 2019 Assessment & Plan (1) Sepsis: Reason Critically Ill: 74-year-old male with metastatic melanoma presents to the ICU in acute renal failure, septic shock, requiring vasopressors. 24-hour events: Patient mated to the intensive care unit. He was on vasopressors presentation. Continued with fluid resuscitation. Pressors were weaned off overnight. He is without complaints this morning and wants to get up out of bed and eat. Urinalysis is still not been checked. He remains on antibiotics. Metastatic melanoma, stage IVinitially diagnosed 2013, now affecting multiple organs including adrenal glands, bladder, pancreas -Currently undergoing palliative chemo with ipilimumab with [facility] in [place], last dose November 20 -Has underwent total adrenalectomy, along with cystectomy -CT abdomen shows progression of presumed retroperitoneal and peripancreatic lymphadenopathy -Patient appears to understand that his prognosis is poor as his CODE STATUS is DNR/DNI, however would like to proceed with current therapy as he has had good outcome on previous admission Recommendations: Neuro - CAM ICU: Negative No current issues continue to follow Cardiac - LBBB/tachybradycardia syndrome/PAFs/p pacer/AICD -Continue amiodarone -Monitor on telemetry Hypotension/shocksuspected urosepsis versus hypovolemia, now resolved -received over 4 L of crystalloid overnight. Pressors are now weaned off. -Echo from 08/19/2019, EF 55 to 60% -Lactate was normal on presentation n Respiratory - Currently maintaining sats on room air History of LILLIANA, CPAP HS Continuous monitoring on pulse ox GI - Diabetic, low potassium diet RENAL/LYTES - Acute on chronic renal failurepatient presents with creatinine 7 (baseline at 2), mild metabolic acidosis, potassium 5.2. Suspect ATN. The right nephrostomy tube appears to be functioning. There is a small amount of hydronephrosis on the left but unlikely this would account for the patient's rapid increase in creatinine. I am unclear what medication he received in the outpatient setting for his chemotherapy. Certainly toxicity related with chemotherapy would be on the differential as well as hypovolemia, ATN. Urinalysis is not yet been checked. Will hold on sending urine electrolytes as it is unlikely to alter management. During prior admission the patient was felt to be a poor candidate for renal replacement therapy and I suspect this will remain the case. Await formal nephrology consultation. Hyponatremia correcting. The patient remains with a metabolic acidosis. Will administer additional bicarb today and follow. - Right nephrostomyappears to be working without issue as nephrostomy bag is full of dark rivera urine. I do not think the hydronephrosis on the left requires intervention currently. ENDO - DM type IIpatient insulin-dependent, last A1c 6.0 in August -Continue sliding scale/Lantus -ICU hyperglycemic protocol Adrenal insufficiency following total adrenalectomy -Currently on Florinef and 40 mg of hydrocortisone daily. As he is off pressors, Will adjust to hydorcortisone 50mg iv q6 HEME - Anemiahistory of anemia of chronic disease and iron deficiency anemia, received blood transfusion last admission. No indication for transfusion currently. The patient does have widely metastatic melanoma. He does not believe he would want additional chemotherapy as again he believes this current event was precipitated by his chemo. CT of his abdomen does demonstrate what appears to be progression of disease. Palliative care consultation recommended. ID - Sepsis?Likely urosepsis as patient has had multiple UTIs including ESBL and enterococcus. He is better this morning. Procalcitonin is decreasing. White count is normal. He is afebrile. Will discontinue daptomycin and continue ertapenem pending urine culture. Would anticipate at least 7 days of antimicrobial therapy although given the nephrostomy tube, he may require a longer course. LINES/IV ACCESS - CVC right IJ, right nephrostomy tube DVT PROPHYLAXIS - SCDs, heparin CODE STATUS: DNR/DNI Disposition: The patient has improved significantly over the last 12 hours with aggressive hydration and vasopressor support. His kidney function is improving. I think he is appropriate to transfer out of the intensive care unit at this point in time. Defer to the hospitalist. Will sign off once he leaves the ICU. Please call us if we can be of additional critical care assistance. (2) Acute on chronic renal failure: (3) Admitted to intensive care unit: Admission and Anticipated Discharge Date Admission Date: November 26, 2019 Subjective Patient seen and examined. EMR reviewed. Discussed with critical care KYLAH. He is doing better this morning. He offers no complaints. Specifically denies chest pain, shortness of breath, abdominal pain, nausea, vomiting, or dysuria. He is incontinent of urine at baseline. He continues to believe that this current episode was precipitated by chemotherapy associated with his metastatic malignancy. He feels like getting up out of bed and has an appetite back. Review of Systems Review of Systems: All systems reviewed & are unremarkable except as noted in HPI & below Physical Exam Constitutional: cooperative, comfortable and + overweight Eyes: PERRL, conjunctivae normal, anicteric sclerae ENMT: external ear and nose normal, oropharynx normal Neck: trachea midline, no thyromegaly Respiratory: normal respiratory effort, lungs clear to auscultation Cardiovascular: RRR, no murmur, no edema Vessels: no JVD Extremities: normal capillary refill and + pedal edema Gastrointestinal (Abdomen): normal bowel sounds, soft, nontender, no hepato splenomegaly Skin: no rashes, warm and dry Neurologic: PERRL, EOMI, accommodation nl, no face palsy, no dysarthria Psychiatric: A+Ox3, euthymic affect Genitourinary: Right nephrostomy tube Results & Data Results & Data ([facility]) Vital Signs (Past 12 Hours) Vital Signs Temp Pulse Pulse Resp BP BP Pulse Ox 11/27/19 06:00 36.3 C L 64 16 96 11/27/19 05:59 65 19 119/65 96 11/27/19 05:45 60 15 97 11/27/19 05:38 60 11 L 122/68 100 11/27/19 05:30 60 16 97 11/27/19 05:15 60 24 98 11/27/19 05:09 60 20 111/73 97 11/27/19 05:00 36.5 C 60 19 97 11/27/19 04:45 60 13 93 11/27/19 04:39 60 16 128/71 97 11/27/19 04:30 70 24 93 11/27/19 04:15 60 18 97 11/27/19 04:08 60 13 119/70 96 11/27/19 04:00 36.4 C L 60 24 93 11/27/19 03:45 60 9 L 88 L 11/27/19 03:38 60 14 123/67 88 L 11/27/19 03:30 60 15 95 11/27/19 03:15 60 9 L 95 11/27/19 03:09 64 25 H 116/63 96 11/27/19 03:00 36.4 C L 62 13 97 11/27/19 02:45 61 14 96 11/27/19 02:38 62 13 113/71 99 11/27/19 02:30 64 24 97 11/27/19 02:15 63 19 98 11/27/19 02:08 64 12 120/76 96 11/27/19 02:00 36.5 C 66 22 95 11/27/19 01:45 65 15 91 11/27/19 01:39 70 16 125/62 99 11/27/19 01:30 67 19 95 11/27/19 01:09 65 21 156/63 H 97 11/27/19 01:00 36.4 C L 65 19 97 11/27/19 00:38 66 20 144/73 H 98 11/27/19 00:30 123 H 23 97 11/27/19 00:08 36.5 C 18 116/65 92 11/27/19 00:00 172 H 18 97 11/26/19 23:39 67 13 131/63 99 11/26/19 23:30 36.5 C 66 18 98 11/26/19 23:08 69 18 117/54 L 97 11/26/19 23:00 70 18 97 11/26/19 22:39 26 H 122/49 L 11/26/19 22:30 69 16 98 11/26/19 22:08 36.4 C L 69 17 116/66 100 11/26/19 22:00 70 19 98 11/26/19 21:38 71 19 119/52 L 99 11/26/19 21:30 70 22 86 L 11/26/19 21:09 80 33 H 119/59 L 97 11/26/19 21:00 36.3 C L 68 11 L 98 11/26/19 20:38 68 18 105/57 L 96 11/26/19 20:30 70 15 98 11/26/19 20:08 69 22 106/59 L 98 11/26/19 20:00 70 18 99 11/26/19 19:54 36.3 C L 68 21 106/64 100 11/26/19 19:40 36.3 C L 71 20 98 Laboratory Results 11/27/19 04:23 11/27/19 04:23 Urine culture pending Lactate normal on presentation Diagnostic Findings No new imaging Coding Level [facility] Diagnoses Sepsis A41.9; R65.21; N17.9 Acute renal failure type: unspecified Sepsis acute organ dysfunction status: with acute organ dysfunction Sepsis type: sepsis due to unspecified organism Severe sepsis acute organ dysfunction type: acute renal failure Severe sepsis shock status: with septic shock Acute on chronic renal failure N17.9; N18.9 Acute renal failure type: unspecified Chronic kidney disease stage: unspecified stage Admitted to intensive care unit Z78.9 (1) Sepsis Acute renal failure type: unspecified Sepsis acute organ dysfunction status: with acute organ dysfunction Sepsis type: sepsis due to unspecified organism Severe sepsis acute organ dysfunction type: acute renal failure Severe sepsis shock status: with septic shock Qualified Code(s): A41.9 - Sepsis, unspecified organism; R65.21 - Severe sepsis with septic shock; N17.9 - Acute kidney failure, unspecified (2) Acute on chronic renal failure Acute renal failure type: unspecified Chronic kidney disease stage: unspecified stage Qualified Code(s): N17.9 - Acute kidney failure, unspecified; N18.9 - Chronic kidney disease, unspecified
[2019-11-27 08:03] LABS: Appearance Urine Clear (Clear); Bilirubin Urine Negative (Negative); Blood Urine Negative (Negative); Color Urine Yellow; Epithelial Cell Urine Auto 20-30 /lpf (0-5); Glucose Urine UA Negative (Negative); Ketones Urine Negative (Negative); Leukocyte Esterase Urine 1+ (Negative); Nitrite Urine Negative (Negative); Protein Urine Trace (Negative); RBC Urine Automated 0-4 /hpf (0-4); Specific Gravity Urine 1.018 (1.000-1.030); Urobilinogen Urine Negative (Negative)
[2019-11-27 08:18] LABS: Bacteria Urine Automated 1+ (Negative)
[2019-11-27 08:22] LABS: Uric Acid Crystals Urine Present (None Prsent)
[2019-11-27] MEDS: DOCUSATE SODIUM 100 MG CAP PO SCH ×2 (08:46→22:00)
[2019-11-27] MEDS: AMIODARONE 200 MG TAB PO SCH (08:46)
[2019-11-27] MEDS: INSULIN GLARGINE SOLOSTAR 100 UNITS/ML 3 ML PEN SC SCH ×2 (08:47→22:04)
[2019-11-27] MEDS: FLUDROCORTISONE ACETATE 0.1 MG TAB PO SCH (08:47)
[2019-11-27] MEDS: HEPARIN SOD 5,000 UNIT/0.5 ML VIAL SQ SCH ×2 (08:47→22:00)
[2019-11-27] MEDS: CHOLECALCIFEROL 1,000 UNITS 25 MCG TAB PO SCH (08:48)
[2019-11-27] MEDS ORDERED: GLUCAGON FOR INJ 1 MG VIAL IM PRN (10:30)
[2019-11-27] MEDS ORDERED: GLUCOSE 10 TABS/TUBE PO PRN (10:30)
[2019-11-27] MEDS ORDERED: GLUCOSE 40% GEL 15 GM TUBE PO PRN (10:30)
[2019-11-27] MEDS ORDERED: CARBOHYDRATES FOR HYPOGLYCEMIA PO PRN (10:30)
[2019-11-27] MEDS ORDERED: DEXTROSE 50% 50 ML SYRINGE IV PRN (10:30)
[2019-11-27] MEDS: HYDROCORTISONE SOD 50 MG in SYRINGE 0 ML IV SCH ×3 (12:33→23:42)
--- NOTE | 2019-11-27 12:41 | Urology Consultation ---
Date of Consultation November 27, 2019 Assessment & Plan (1) Metastatic melanoma: evidence of progression on newest ct scan consider hospice referral as patient does not want to try the chemo again. UTI- he seems improved on iv fluid resuscitation and broad spectrum antibiotics. I dont think we will get accurate culture results this admission as the cultures are contaminated. He has only dribbles urethrall so it is difficult to give a voided mid stream clean urine plus the neph tube is chronically colonized with skin matheus. He has non oliguric renal failure so I think he will see enough recovery that he wont in near future of renal failure. Labs look decent and are improving. I looked at ct and dont see enough left hydro to warrant consideration of left neph tube. The left ureter in particular does not look dilated. No urologic intervention planned this admission. Present on Admission?: Yes History of Present Illness Attending Physician: Estuardo Garza MD History of Present Illness I am asked by [employer] to evaluate and treat patient for left hydronephrosis and uti. Patient is admitted with presumed complicated uti. He has years long case of metastatic melanoma and has had a few TURBTs and an adrenalectomy for debulking. He had a large tumor recurrence in bladder resected and a right stent placed for concern of right ureteral obstruction fall 2018. he has had on and off bleeding with this. Urethrally voided Urine ranges from yellow to red to brown with some debris like mud in color. Stent was removed in Jun 2019 at bedside here. His path was muscle invasive metastatic melanoma which is unresectable. Imaging u/s and CT shows a large bladder mass each time. Could be clot but is more likely new tumor. He was given a right nephrostomy tube for malignant obstruction [id number] at [facility]. He got sick mid last week. He thinks his new chemo given one week ago caused him to become ill. He has dysuria, frequent small voids, and nausea and weakness. His home nurse tried to start an IV and could not so sent him to ER. He was also tried on some sort of oral antibiotic last week. He had a pacemaker placed in August here. His renal function is poor at baseline and much worse this admit. rapidly deteriorating Allergies Allergy/AdvReac Type Severity Reaction Status Date / Time perflutren AdvReac Intermediate GI SYMPTOMS Verified 09/29/19 16:55 propylene glycol AdvReac Intermediate GI SYMPTOMS Verified 09/29/19 16:55 simvastatin AdvReac Intermediate JOINT AND Verified 09/29/19 16:55 MUSCLE PAIN Home Medications Home Medications Medication Instructions Recorded Confirmed Type cholecalciferol (vitamin D3) 1,000 unit PO QAM 04/20/18 11/26/19 History [Vitamin D3] docusate sodium [Colace] 100 mg PO BID 04/20/18 11/26/19 History ondansetron HCl 4 mg tablet 4 mg PO Q8H PRN tab 08/10/18 11/26/19 History acetaminophen [Tylenol Extra 500 mg PO Q6H PRN 05/22/19 11/26/19 History Strength] methylprednisolone sodium succ 125 mg IM DIRECTED PRN 05/22/19 11/26/19 History triamcinolone acetonide 1 applic TOPICAL BID PRN 05/22/19 11/26/19 History Lantus Solostar U-100 Insulin 30 unit SC BID 07/02/19 11/26/19 History fludrocortisone 0.1 mg PO QAM 07/02/19 11/26/19 History hydrocortisone 10 mg PO DAILY@1200,1500 07/02/19 11/26/19 History hydrocortisone 20 mg PO DAILY@0500 07/02/19 11/26/19 History lorazepam 1 mg PO DAILY PRN 07/29/19 11/26/19 History amiodarone 200 mg PO QAM 08/17/19 11/26/19 History calcitriol 0.5 mcg PO HS 09/09/19 11/26/19 History torsemide 20 mg PO MOWEFR@0900 #30 tab 10/02/19 11/26/19 Rx amoxicillin 500 mg PO BID 11/26/19 11/26/19 History oxycodone-acetaminophen 1 tab PO Q8H PRN 11/26/19 11/26/19 History prochlorperazine maleate 5 mg PO Q6H PRN 11/26/19 11/26/19 History Patient History Medical History Adrenal insufficiency S/P LEFT ADRENALECTOMY- ON CHRONIC HYDROCORTISONE Anxiety (Chronic) Cardiomyopathy (Chronic) Chronic kidney disease, stage 4 (severe) Degenerative disc disease (Chronic) Diabetes mellitus, type II Dyslipidemia (Chronic) H/O transfusion of packed red blood cells S/P 2 UNITS (2017) History of immunotherapy (Chronic) Keytruda x 2 Cycles (had to stop after 2nd cycle) Current Opdivo q 2 weeks (currently on hold) - started 05/2017 - 04/2018 Hypertension Metastatic malignant melanoma Morbid obesity (Chronic) Sleep apnea CPAP HS Surgical History History of colonoscopy 2016 History of esophagogastroduodenoscopy (EGD) 2017 History of tooth extraction Hx of cystoscopy 05/05/18 - BLADDER TUMOR EXCISION Hx of total adrenalectomy LEFT SIDE-- HX B/L ADRENAL MASSES; UNDERWENT LAP LEFT ADRENAL MASS EXCISION 04/14/17; PATHOLOGY METASTATIC MALIGNANT MELANOMA WITH VASCULAR INVASION Nephrostomy status (Acute) Family History Father No problems noted. Mother Colon cancer, Onset Age: 85 Chemo and Resection - Alive and well now Sister Breast cancer, Onset Age: 55 Had Radiation - Alive and well now Sister No problems noted. Sister No problems noted. Sister No problems noted. Sister No problems noted. Brother No problems noted. Son No problems noted. Son No problems noted. Social History Preferred Language: Tajik Communication Ability: Effective Visual Impairment: Limited Hearing Ability: Hard of Hearing Fluxer Required: No Beliefs That Will Affect Care: None marital status: Life Partner Current Living Situation: Significant Other current occupational status: retired current occupation: Retired - [employer] Other Information That Helps Us Care for You: No Feels Safe at Home: Yes Safety Concerns: Feels Safe At This Time Smoking Status: Never smoker Tobacco Type: smokeless tobacco ; Do You Dip or Chew Tobacco: Yes ; Second Hand Exposure: No ; Tobacco Cessation Education Requested by Patient: No Hx Alcohol Use: No Hx Substance Use: No caffeine: Yes (2 cups of coffee/day ) during the past year weight has: remained stable Review of Systems Review of Systems: PMH- obesity, DM, HTN, sick sinus, metastatic melanoma, acute on chronic renal insufficiency Soc- former tobacco, lives with SO, retired, no alcohol Fam Hx- not contributory for this issue ROS- no fevers, + weakness, no chills, + dysuria, no chest pain, no sob, + naus ea no emesis, bowels fine. Physical Exam Constitutional: well developed, well nourished, + obese, well groomed and comfortable Respiratory: normal respiratory effort; no cough, not tachypneic and no grunting Musculoskeletal: no cyanosis or clubbing, extremities motor strength 5/5 Skin: no rashes, warm and dry has a scabbed over abrasion right caputo Psychiatric: A+Ox3, euthymic affect Results & Data Vital Signs (Past 12 Hours) Vital Signs Temp Pulse Resp BP Pulse Ox 11/27/19 12:29 36.8 C 72 20 124/72 11/27/19 10:00 70 24 11/27/19 09:45 69 14 100 11/27/19 09:39 66 14 107/60 97 11/27/19 09:30 91 H 16 97 11/27/19 09:15 79 25 H 95 11/27/19 09:09 68 18 113/54 L 11/27/19 09:00 63 16 98 11/27/19 08:45 67 22 98 11/27/19 08:39 65 18 106/55 L 97 11/27/19 08:30 65 21 97 11/27/19 08:15 69 22 99 11/27/19 08:09 187 H 18 108/48 L 96 11/27/19 08:00 36.3 C L 69 20 97 11/27/19 07:58 71 11/27/19 07:45 29 H 97 11/27/19 07:40 20 97/76 L 11/27/19 07:30 65 17 98 11/27/19 07:27 65 19 116/59 L 97 11/27/19 07:15 63 17 98 11/27/19 07:09 63 20 93/68 L 97 11/27/19 07:00 63 16 98 11/27/19 06:45 66 16 90 11/27/19 06:39 65 13 116/65 96 11/27/19 06:30 65 18 97 11/27/19 06:15 65 17 95 11/27/19 06:09 64 21 112/61 97 11/27/19 06:00 36.3 C L 64 16 96 11/27/19 05:59 65 19 119/65 96 11/27/19 05:45 60 15 97 11/27/19 05:38 60 11 L 122/68 100 11/27/19 05:30 60 16 97 11/27/19 05:15 60 24 98 11/27/19 05:09 60 20 111/73 97 11/27/19 05:00 36.5 C 60 19 97 11/27/19 04:45 60 13 93 11/27/19 04:39 60 16 128/71 97 11/27/19 04:30 70 24 93 11/27/19 04:15 60 18 97 11/27/19 04:08 60 13 119/70 96 11/27/19 04:00 36.4 C L 60 24 93 11/27/19 03:45 60 9 L 88 L 11/27/19 03:38 60 14 123/67 88 L 11/27/19 03:30 60 15 95 11/27/19 03:15 60 9 L 95 11/27/19 03:09 64 25 H 116/63 96 11/27/19 03:00 36.4 C L 62 13 97 11/27/19 02:45 61 14 96 11/27/19 02:38 62 13 113/71 99 11/27/19 02:30 64 24 97 11/27/19 02:15 63 19 98 11/27/19 02:08 64 12 120/76 96 11/27/19 02:00 36.5 C 66 22 95 11/27/19 01:45 65 15 91 11/27/19 01:39 70 16 125/62 99 11/27/19 01:30 67 19 95 11/27/19 01:09 65 21 156/63 H 97 11/27/19 01:00 36.4 C L 65 19 97 11/27/19 00:38 66 20 144/73 H 98
[2019-11-27] MEDS: ERTAPENEM SODIUM 500 MG in SODIUM CHLORIDE 0.9% 50 ML IV SCH (13:36)
--- NOTE | 2019-11-27 13:43 | Hospitalist Progress Note ---
Date of Service November 27, 2019 Assessment & Plan (1) Hypotension: (2) Acute on chronic renal failure: (3) Chronic kidney disease, stage 4 (severe): Acute Kidney Injury on CKD IV Baseline Cr:~3 Likely ATN in setting of septic shock H/O Obstructive Uropathy ? Recent chemotherapy could have contributed Cr:7.05>>5.62 Was thought to be a poor candidate for renal replacement therapy Nephrology consult Appreciate Urology Input No plan for any urological procedure. Septic Shock Likely Source: Complicated UTI H/O UTIs--ESBL, Enterococcus Weaned off of pressors Blood/Urine Culture: Pending Daptomycin discontinued Continue Ertapenem Day #2 Continue IV fluids Continue IV hydrocortisone Taper steroids as able Hyponatremia Hypomagnesemia Metabolic acidosis Sodium levels improving Received Sodium Bicarbonate Monitor electrolytes and replace as needed H/O Obstructive uropathy Right nephrostomy tube --CT ABD:Progression of presumed retroperitoneal and peripancreatic lymphadenopathy. This is suboptimally assessed with noncontrast technique. Presumably this relates to the reported malignancy. Increasing size of a right suprarenal nodule, especially in comparison to prior CT from 06/14/2019. This may represent recurrence of the prior right adrenal gland nodule evident on MR from 04/12/2018. Attention on follow-up. Persistent small pericardial effusion. Hepatic steatosis. Polycystic kidneys. Distention of the left renal collecting system concerning for mild left hydronephrosis. 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 --No significant left hydronephrosis.warrants nephrostomy tube on the left Appreciate urology input Tachybradycardia syndrome Left bundle branch block Paroxysmal atrial fibrillation S/P AICD Continue amiodarone Not on anticoagulation due to H/O persistent gross hematuria (4) Hx of total adrenalectomy: H/O Adrenal insufficiency S/P adrenalectomy Continue fludrocortisone Continue IV hydrocortisone 50 mg Q6H Taper down steroids as able (5) Metastatic malignant melanoma: H/O Metastatic malignant melanoma S/P adrenalectomy, cystectomy CT abd suggestive of progression of retroperitoneal and peripancreatic lymphadenopathy. Currently undergoing palliative chemotherapy/Radiation therapy Received Ipilimumab, on November Follows with Dr. Richards at [facility] Patient prefers no further chemotherapy Poor prognosis Likely needs to be transition to hospice eventually (6) Diabetes mellitus, type II: Last Hb A1C:6.0 Continue ISS/Lantus Monitor BGs (7) Anemia: Anemia of chronic kidney disease Iron deficiency anemia Monitor CBC (8) Sleep apnea: CPAP HS Obesity (morbid) BMI:39.8 DVT Px: Heparin SQ Code status: DNR/DNI Admission and Anticipated Discharge Date Admission Date: November 26, 2019 Subjective Patient is seen and examined at bedside Feels a lot better today No specific complaints Denies any chest pain, shortness of breath, dizziness, nausea, abdominal pain Renal function slowly improving No plan for any intervention as per urology Discussed with energy specialist today Weaned off of pressors today Review of Systems Review of Systems: All systems reviewed & are unremarkable except as noted in HPI & below Physical Exam Physical Exam: Physical Exam: Vitals signs as noted above General Appearance:Obese, no apparent distress Head: normocephalic, Atraumatic Eyes: normal inspection, EOMI, PERRL Neck: supple, Trachea midline Respiratory/Chest: Normal breath sounds, CTA, +Pacer Cardiovascular: S1, S2, No murmur Abdomen/GI:Soft, Non tender, Bowel sounds present, R nephrostomy tube Extremities/Musculoskelatal:normal inspection, no edema Neurologic/Psych:AAOX3, grossly no focal neurological deficits Skin: normal color, warm Results & Data Results & Data ([facility]) Vital Signs (Past 12 Hours) Vital Signs Temp Pulse Resp BP Pulse Ox 11/27/19 12:29 36.8 C 72 20 124/72 11/27/19 10:00 70 24 11/27/19 09:45 69 14 100 11/27/19 09:39 66 14 107/60 97 11/27/19 09:30 91 H 16 97 11/27/19 09:15 79 25 H 95 11/27/19 09:09 68 18 113/54 L 11/27/19 09:00 63 16 98 11/27/19 08:45 67 22 98 11/27/19 08:39 65 18 106/55 L 97 11/27/19 08:30 65 21 97 11/27/19 08:15 69 22 99 11/27/19 08:09 187 H 18 108/48 L 96 11/27/19 08:00 36.3 C L 69 20 97 11/27/19 07:58 71 11/27/19 07:45 29 H 97 11/27/19 07:40 20 97/76 L 11/27/19 07:30 65 17 98 11/27/19 07:27 65 19 116/59 L 97 11/27/19 07:15 63 17 98 11/27/19 07:09 63 20 93/68 L 97 11/27/19 07:00 63 16 98 11/27/19 06:45 66 16 90 11/27/19 06:39 65 13 116/65 96 11/27/19 06:30 65 18 97 11/27/19 06:15 65 17 95 11/27/19 06:09 64 21 112/61 97 11/27/19 06:00 36.3 C L 64 16 96 11/27/19 05:59 65 19 119/65 96 11/27/19 05:45 60 15 97 11/27/19 05:38 60 11 L 122/68 100 11/27/19 05:30 60 16 97 11/27/19 05:15 60 24 98 11/27/19 05:09 60 20 111/73 97 11/27/19 05:00 36.5 C 60 19 97 11/27/19 04:45 60 13 93 11/27/19 04:39 60 16 128/71 97 11/27/19 04:30 70 24 93 11/27/19 04:15 60 18 97 11/27/19 04:08 60 13 119/70 96 11/27/19 04:00 36.4 C L 60 24 93 11/27/19 03:45 60 9 L 88 L 11/27/19 03:38 60 14 123/67 88 L 11/27/19 03:30 60 15 95 11/27/19 03:15 60 9 L 95 11/27/19 03:09 64 25 H 116/63 96 11/27/19 03:00 36.4 C L 62 13 97 11/27/19 02:45 61 14 96 11/27/19 02:38 62 13 113/71 99 11/27/19 02:30 64 24 97 11/27/19 02:15 63 19 98 11/27/19 02:08 64 12 120/76 96 11/27/19 02:00 36.5 C 66 22 95 11/27/19 01:45 65 15 91 Laboratory Results Short CBC 11/26/19 11/27/19 Range/Units 13:25 04:23 WBC 12.27 H 9.26 (4.8-10.8) K/uL Hgb 10.7 L 9.2 L (14.0-18.0) g/dL Hct 34.6 L 29.8 L (42-52) % Plt Count 313 296 (130-400) K/uL BMP 11/26/19 11/27/19 13:25 04:23 Sodium 129 L 135 L Potassium 5.2 H 4.6 Chloride 96 L 106 Carbon Dioxide 24 21 BUN 53 H 51 H Creatinine 7.05 H* 5.62 H* D Glucose 119 H 138 H Calcium 8.7 7.9 L Cardiac Enzymes 11/26/19 Range/Units 13:25 Troponin I < 0.015 (0-0.045) ng/ml Liver Function 11/26/19 11/27/19 Range/Units 13:25 04:23 Total Bilirubin 1.0 0.4 D (0.2-1) mg/dl AST 17 16 (15-37) U/L ALT 20 17 (12-78) U/L Alkaline Phosphatase 88 79 (45-117) U/L Albumin 2.4 L 1.9 L (3.4-5.0) gm/dl Urine 11/27/19 Range/Units 07:40 Urine Color Yellow Urine Appearance Clear (Clear) Urine pH 5.0 (4.5-7.5) Ur Specific Lohn 1.018 (1.000-1.030) Urine Protein Trace H (Negative) Urine Glucose (UA) Negative (Negative) (1) Acute on chronic renal failure Chronic kidney disease stage: stage 4 (severe)
[2019-11-27 16:46] LABS: BUN Creatinine Ratio 11.3 (10-20); Calcium 8.1 mg/dl (8.5-10.1); Creatinine Clr Calc Pharmacy 18.2 ml/min; Est GFR (African American) 13.2; Est GFR (Non-African American) 11.4; Potassium 4.4 mmol/L (3.5-5.1)
--- NOTE | 2019-11-27 17:11 | Consultation Report ---
DATE OF CONSULTATION: 11/27/2019 REASON FOR CONSULT: Acute renal failure and background chronic kidney disease. 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 He also had bladder resection in 04/[address] Moore at [facility] and is now status post percutaneous right nephrostomy tube. He is currently undergoing palliative treatment at [facility] in [place]. Also has extensive other comorbid disease including tachybrady syndrome, status post pacemaker, type 2 diabetes as well as chronic kidney disease stage IV. His more recent baseline creatinine is around 3.0. About a month ago, it was in the mid 2s. The patient was [facility] and was recently diagnosed with possible urinary tract infection and was started on antibiotic at home. [facility] nurse was trying to obtain IV access as well as labs. However, was not able to and because of the clinical status she recommended that the patient present to the Emergency Department. In the Emergency Department, he was noted to be hypotensive with initial blood pressure of 70s/40s. He received aggressive IV fluid resuscitation. He was felt to be in sepsis. He had acute kidney failure on background chronic kidney disease. Creatinine was elevated at 7. Blood cultures and urine cultures were obtained. The patient did have CT scan of the abdomen also which showed the right nephrostomy tube was working fine. There was mention of mild pelvicaliectasis of the left kidney with some degree of mild distention of the ureter, but no mention of overt hydronephrosis. Overnight, the patient was in the ICU where he was even placed on pressors as well as IV fluid. However, he got off the pressors very quick and he is now in the regular floor with good blood pressure. Renal function also improved fairly fast with creatinine now down in the 5s in less than 24-hour time period. The patient has already been seen by urologist who does not feel that the CT scan finding in the left kidney, and the ureter is of major concern. ALLERGIES: Reviewed. HOME MEDICATIONS: List was reviewed and is as per the reconciliation list. PAST MEDICAL AND SURGICAL HISTORY: Very extensive and includes adrenal insufficiency following left adrenalectomy on chronic hormone supplement, anxiety, cardiomyopathy, CKD stage IV with more recent baseline creatinine around 3, degenerative disc disease, type 2 diabetes, dyslipidemia, history of transfusion of packed red blood cells, history of chemotherapy multiple agents, metastatic malignant melanoma, morbid obesity, sleep apnea, hypertension, right nephrostomy tube as well as bladder tumor excision. FAMILY HISTORY: Negative for renal disease or dialysis. SOCIAL HISTORY: , retired. No smoking, no alcohol. Lives in his home. REVIEW OF SYSTEMS: Besides what is listed in the HPI, 12 systems reviewed and negative. Positive review of system includes fatigue, malaise, weakness, but no fever. He was having some dysuria with report of dark urine and foul smelling urine. No flank pain, no mention of any problem with the nephrostomy tube in the right side. PHYSICAL EXAMINATION: GENERAL: Obese male who appears to be stable at this time. He does not appear in any respiratory distress. Able to give detailed account of his medical history. HEENT: Mucous membranes moist. NECK: Supple. No jugular venous distention. CHEST: Bilateral clear to auscultation. CARDIOVASCULAR: S1 and S2, regular. ABDOMEN: Soft, nontender. EXTREMITIES: Shows 1+ edema. NEUROLOGIC: Awake, alert, oriented x3. Normal speech. SKIN: Warm and dry. LABORATORY TESTS: Blood work yesterday at the time of admission showed a serum sodium of 129, creatinine of 7.05, BUN of 53. This morning labs is significantly better. Creatinine is now down to 5.6, BUN 51. Sodium is up to 135. Albumin is 1.9. Hemoglobin is now 9.2, WBC count 9000. ASSESSMENT AND PLAN: A 74-year-old male who has metastatic melanoma with preexisting chronic kidney disease IV and complicated urological history, presented to the Emergency Department with sepsis-like syndrome with hypotension and acute renal failure on background chronic kidney disease IV, for which I have been consulted. Acute renal failure: It appears predominantly related with sepsis with hypotension. With better blood pressure and IV fluids renal function has improved significantly and in less than 24-hour time period, creatinine has gone down by 2, which is very good rate of recovery. He does have baseline chronic kidney disease IV with more recent creatinine in the low 3s. I expect further improvement in his renal function. I agree with Urology that the CT scan finding in the left ureter and kidney is not the cause of the acute renal failure and does not need any urological intervention. Continue to support his blood pressure, and oxygen and overall hemodynamic status. Avoid nephrotoxic agent. Blood work at least once daily. Continue to follow the culture report. However, if he progresses into renal failure requiring dialysis, he is not really a candidate for chronic dialysis given his advanced cancer which is at a palliative stage. MTDD
[2019-11-27] MEDS: CALCITRIOL 0.25 MCG CAPSULE PO SCH (22:00)
[2019-11-27] MEDS: OXYCODONE/ACETAMINOPHEN 5mg/325mg TAB PO PRN (22:01)
--- NOTE | 2019-11-27 22:47 | Electrocardiogram Report ---
Test Reason : Blood Pressure : / mmHG Vent. Rate : 086 BPM Atrial Rate : 086 BPM P-R Int : 170 ms QRS Dur : 148 ms QT Int : 414 ms P-R-T Axes : 052 005 077 degrees QTc Int : 495 ms Poor data quality, interpretation may be adversely affected Normal sinus rhythm Left bundle branch block Abnormal ECG When compared with ECG of 26-NOV-2019 13:07, No significant change was found Confirmed by Milton Browning ([id number]) on 11/27/2019 10:47:52 PM Referred By: REFERRED SELF Confirmed By:Milton Browning
[2019-11-28] MEDS: SODIUM CHLORIDE 0.9% 1000ML 1,000 ML IV SCH ×2 (01:50→14:00)
[2019-11-28 04:06] LABS: Hemoglobin 9.4 g/dL (14.0-18.0); Mean Corpuscular Hemoglobin 25.1 pg (25-34); Mean Corpuscular Hgb Conc 31.3 g/dL (32-36); Mean Platelet Volume 8.8 fL (7.4-10.4); Platelet Count 268 K/uL (130-400); RDW Coefficient of Variation 17.5 % (11.5-14.5); RDW Standard Deviation 51.6 fL (36.4-46.3); Red Blood Count 3.75 M/uL (4.7-6.1); White Blood Count 8.27 K/uL (4.8-10.8)
[2019-11-28 04:25] LABS: BUN Creatinine Ratio 12.1 (10-20); Calcium 8.4 mg/dl (8.5-10.1); Creatinine Clr Calc Pharmacy 19.8 ml/min; Est GFR (African American) 14.6; Est GFR (Non-African American) 12.6; Magnesium 2.2 mg/dl (1.8-2.4); Potassium 4.5 mmol/L (3.5-5.1)
[2019-11-28] MEDS: HYDROCORTISONE SOD 50 MG in SYRINGE 0 ML IV SCH ×2 (05:59→12:39)
[2019-11-28] MEDS ORDERED: CARBOHYDRATES FOR HYPOGLYCEMIA PO PRN (08:04)
[2019-11-28] MEDS ORDERED: GLUCAGON FOR INJ 1 MG VIAL SQ PRN (08:04)
[2019-11-28] MEDS ORDERED: GLUCOSE 10 TABS/TUBE PO PRN (08:04)
[2019-11-28] MEDS: AMIODARONE 200 MG TAB PO SCH (08:13)
[2019-11-28] MEDS: CHOLECALCIFEROL 1,000 UNITS 25 MCG TAB PO SCH (08:13)
[2019-11-28] MEDS: DOCUSATE SODIUM 100 MG CAP PO SCH ×2 (08:14→20:37)
[2019-11-28] MEDS: HEPARIN SOD 5,000 UNIT/0.5 ML VIAL SQ SCH ×2 (08:14→20:33)
[2019-11-28] MEDS: INSULIN GLARGINE SOLOSTAR 100 UNITS/ML 3 ML PEN SC SCH ×2 (08:15→20:33)
[2019-11-28] MEDS: OXYCODONE/ACETAMINOPHEN 5mg/325mg TAB PO PRN (08:19)
[2019-11-28] MEDS: FLUDROCORTISONE ACETATE 0.1 MG TAB PO SCH (09:33)
[2019-11-28] MEDS: INSULIN ASPART 100 UNITS/ML 3 ML PEN SC SCH ×3 (12:41→20:34)
--- NOTE | 2019-11-28 13:43 | Palliative Care Consultation ---
Date of Consultation November 28, 2019 Assessment & Plan (1) Goals of care, counseling/discussion: -74 year old male patient with complicated PMH stage IV metastatic melanoma with multiple organ involvement, including adrenal gland and bladder s/p chemo, radiation and surgery (s/p left adrenalectomy, on Florinef and hydrocortisone), [place] [place] [facility] [place] s/p percutaneous right nephrostomy tube, currently undergoing palliative treatment (ipilimumab) in [place], PAF, LBBB, tachybrady syndrome s/p pacemaker, DM2, CKD stage IV, obesity, anemia, ESBL UTI in 07/2019, and recent hx of Enterobacter cloacae UTI, presented to the hospital two days ago with c/o weakness, malaise, dysria and and dark, foul-selling urine. He was recently dx with UTI, started on abx at home but has not had improvement. Last chemo was on 11/20 and patient has been feeling worse since then. In ED, patient hypotensive, SBP in 70s. He received IVF, but little improvement. He was transferred to the ICU for pressor support. He also had creatinine of 7.05 (baseline reported to lucy about 3). Over night in the ICU, patient had significant improvement. Pressors were discontinued and patient transferred out of ICU. Creatinine improved to 5.62 and to 4.[address] abd/pelvis showed "CT ABD:Progression of presumed retroperitoneal and peripancreatic lymphadenopathy. This is suboptimally assessed with noncontrast technique. Presumably this relates to the reported malignancy. Increasing size of a right suprarenal nodule, especially in comparison to prior CT from 06/14/2019. This may represent recurrence of the prior right adrenal gland nodule evident on MR from 04/12/2018. Attention on follow-up. Persistent small pericardial effusion. Hepatic steatosis. Polycystic kidneys. Distention of the left renal collecting system concerning for mild left hydronephrosis. 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 No significant left hydronephrosis.warrants nephrostomy tube on the left." Urology consulted, but does not feel that acute renal failure is related and stated there is no plan for procedure. Nephrology agrees that this is not due to obstruction no procedure is needed, especially since creatinine is so rapidly improving. Apparently patient states that he would prefer no further chemotherapy and realizes that his prognosis is rather poor. Palliative care is consulted to discuss goals of care. -Patient seen by palliative MD this afternoon. -Patient lives at home with his girlfriend normally. He has a son Kb, who is reported to be his POA. Patient prefers to return home with home health services and [facility]. -Given patient's multiple failed treatments, and now continued progression of metastatic disease despite treatment with palliative chemo, prognosis seems poor and further treatment utility uncertain. Will discuss goals with patient. Can engage with family if he prefers. -Patient is listed as DNR/DNI. No living will or advanced directive on file. -We will continue to follow as needed. (2) Metastatic melanoma: (3) Sepsis: Acute renal failure type: unspecified Sepsis acute organ dysfunction status: with acute organ dysfunction Sepsis type: sepsis due to unspecified organism Severe sepsis acute organ dysfunction type: acute renal failure Severe sepsis shock status: with septic shock Qualified Code(s): A41.9 - Sepsis, unspecified organism; R65.21 - Severe sepsis with septic shock; N17.9 - Acute kidney failure, unspecified (4) Acute on chronic renal failure: Acute renal failure type: unspecified Chronic kidney disease stage: unspecified stage Qualified Code(s): N17.9 - Acute kidney failure, unspecified; N18.9 - Chronic kidney disease, unspecified Supervising Physician Co-Signing Physician Notes Chart reviewed, patient seen and examined. Collaborated with CATHY Carr as well as attending physician Dr. Garza Patient awake and alert, sitting up in a chair at bedside. Patient denies any pain or discomfort, is hoping to return home. Discuss goals of care with patient-his goal is to return home with home health- he does not want to think about his disease progression-"wants to live 1 day at a time". Patient stated he would transition to hospice when he felt he was ready-not at this time. Patient has a significant other of 25 years, he has 2 sons-1 lives next door to patient's [address] farm, his other son lives in the [place] area, Kb, who is his POA. Patient stated he would want his son Kb to speak for him if he were unable to make medical decisions. Patient stated he has no further plans for continued chemotherapy-he states he was told that chemo could affect his kidneys, which it did, he does not want to go through that again. PE: Patient awake and alert and oriented, no acute distress HEENT: EOMI, hearing within normal limits Respirations: Unlabored, lungs clear CV: Regular rate Abdomen: Morbidly obese, soft, nontender Extremities: Full range of motion, normal strength Neuro: Alert and oriented x4 Agree with above note, assessment and plan as per CATHY Carr-we will follow peripherally to monitor any significant changes in his current status. History of Present Illness Attending Physician: Estuardo Garza MD History of Present Illness This 74 year old male patient with complicated PMH stage IV metastatic melanoma with multiple organ involvement, including adrenal gland and bladder s/p chemo, radiation and surgery (s/p left adrenalectomy, on Florinef and hydrocortisone), s/p bladder [place] 04[place] [place] [facility] [place] s/p percutaneous right nephrostomy tube, currently undergoing palliative treatment (ipilimumab) in [place], PAF, LBBB, tachybrady syndrome s/p pacemaker, DM2, CKD stage IV, obesity, anemia, ESBL UTI in 07/2019, and recent hx of Enterobacter cloacae UTI, presented to the hospital two days ago with c/o weakness, malaise, dysria and and dark, foul-selling urine. He was recently dx with UTI, started on abx at home but has not had improvement. Last chemo was on 11/20 and patient has been feeling worse since then. In ED, patient hypotensive, SBP in 70s. He received IVF, but little improvement. He was transferred to the ICU for pressor support. He also had creatinine of 7.05 (baseline reported to lucy about 3). Over night in the ICU, patient had significant improvement. Pressors were discontinued and patient transferred out of ICU. Creatinine improved to 5.62 and to 4.[address] abd/pelvis showed "CT ABD:Progression of presumed retroperitoneal and austen pancreatic lymphadenopathy. This is suboptimally assessed with noncontrast technique. Presumably this relates to the reported malignancy. Increasing size of a right suprarenal nodule, especially in comparison to prior CT from 06/14/2019. This may represent recurrence of the prior right adrenal gland nodule evident on MR from 04/12/2018. Attention on follow-up. Persistent small pericardial effusion. Hepatic steatosis. Polycystic kidneys. Distention of the left renal collecting system concerning for mild left hydronephrosis. 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 No significant left hydronephrosis.warrants nephrostomy tube on the left." Urology consulted, but does not feel that acute renal failure is related and stated there is no plan for procedure. Nephrology agrees that this is not due to obstruction no procedure is needed, especially since creatinine is so rapidly improving. Apparently patient states that he would prefer no further chemotherapy and realizes that his prognosis is rather poor. Palliative care is consulted to discuss goals of care. Thank you kindly for this consult. Palliative care team will follow as needed. Allergies Allergy/AdvReac Type Severity Reaction Status Date / Time perflutren AdvReac Intermediate GI SYMPTOMS Verified 09/29/19 16:55 propylene glycol AdvReac Intermediate GI SYMPTOMS Verified 09/29/19 16:55 simvastatin AdvReac Intermediate JOINT AND Verified 09/29/19 16:55 MUSCLE PAIN Home Medications Home Medications Medication Instructions Recorded Confirmed Type cholecalciferol (vitamin D3) 1,000 unit PO QAM 04/20/18 11/26/19 History [Vitamin D3] docusate sodium [Colace] 100 mg PO BID 04/20/18 11/26/19 History ondansetron HCl 4 mg tablet 4 mg PO Q8H PRN tab 08/10/18 11/26/19 History acetaminophen [Tylenol Extra 500 mg PO Q6H PRN 05/22/19 11/26/19 History Strength] methylprednisolone sodium succ 125 mg IM DIRECTED PRN 05/22/19 11/26/19 History triamcinolone acetonide 1 applic TOPICAL BID PRN 05/22/19 11/26/19 History Lantus Solostar U-100 Insulin 30 unit SC BID 07/02/19 11/26/19 History fludrocortisone 0.1 mg PO QAM 07/02/19 11/26/19 History hydrocortisone 10 mg PO DAILY@1200,1500 07/02/19 11/26/19 History hydrocortisone 20 mg PO DAILY@0500 07/02/19 11/26/19 History lorazepam 1 mg PO DAILY PRN 07/29/19 11/26/19 History amiodarone 200 mg PO QAM 08/17/19 11/26/19 History calcitriol 0.5 mcg PO HS 09/09/19 11/26/19 History torsemide 20 mg PO MOWEFR@0900 #30 tab 10/02/19 11/26/19 Rx amoxicillin 500 mg PO BID 11/26/19 11/26/19 History oxycodone-acetaminophen 1 tab PO Q8H PRN 11/26/19 11/26/19 History prochlorperazine maleate 5 mg PO Q6H PRN 11/26/19 11/26/19 History Patient History Medical History Adrenal insufficiency S/P LEFT ADRENALECTOMY- ON CHRONIC HYDROCORTISONE Anxiety (Chronic) Cardiomyopathy (Chronic) Chronic kidney disease, stage 4 (severe) Degenerative disc disease (Chronic) Diabetes mellitus, type II Dyslipidemia (Chronic) H/O transfusion of packed red blood cells S/P 2 UNITS (2016) History of immunotherapy (Chronic) Keytruda x 2 Cycles (had to stop after 2nd cycle) Current Opdivo q 2 weeks (currently on hold) - started 05/2017 - 04/2018 Hypertension Metastatic malignant melanoma Morbid obesity (Chronic) Sleep apnea CPAP HS Surgical History History of colonoscopy 2016 History of esophagogastroduodenoscopy (EGD) 2017 History of tooth extraction Hx of cystoscopy 05/05/18 - BLADDER TUMOR EXCISION Hx of total adrenalectomy LEFT SIDE-- HX B/L ADRENAL MASSES; UNDERWENT LAP LEFT ADRENAL MASS EXCISION 04/14/17; PATHOLOGY METASTATIC MALIGNANT MELANOMA WITH VASCULAR INVASION Nephrostomy status (Acute) Family History Father No problems noted. Mother Colon cancer, Onset Age: 85 Chemo and Resection - Alive and well now Sister Breast cancer, Onset Age: 55 Had Radiation - Alive and well now Sister No problems noted. Sister No problems noted. Sister No problems noted. Sister No problems noted. Brother No problems noted. Son No problems noted. Son No problems noted. 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 Beliefs That Will Affect Care: None marital status: Life Partner Current Living Situation: Significant Other current occupational status: retired current occupation: Retired - [employer] Other Information That Helps Us Care for You: No Feels Safe at Home: Yes Safety Concerns: Feels Safe At This Time Smoking Status: Never smoker Tobacco Type: smokeless tobacco ; Do You Dip or Chew Tobacco: Yes ; Second Hand Exposure: No ; Tobacco Cessation Education Requested by Patient: No Hx Alcohol Use: No Hx Substance Use: No caffeine: Yes (2 cups of coffee/day ) during the past year weight has: remained stable Results & Data Vital Signs (Past 12 Hours) Vital Signs Temp Pulse Resp BP Pulse Ox 11/28/19 12:11 36.4 C L 63 18 124/73 96 11/28/19 08:53 36.3 C L 76 18 128/75 97 11/28/19 07:42 59 L 11/28/19 04:21 36.3 C L 72 18 94/61 L 94 Coding Level of Care Code 51582 Inpt Consult Level 3 Diagnoses Goals of care, counseling/discussion Z71.89 Metastatic melanoma C79.9 Sepsis A41.9; R65.21; N17.9 Acute renal failure type: unspecified Sepsis acute organ dysfunction status: with acute organ dysfunction Sepsis type: sepsis due to unspecified organism Severe sepsis acute organ dysfunction type: acute renal failure Severe sepsis shock status: with septic shock Acute on chronic renal failure N17.9; N18.9 Acute renal failure type: unspecified Chronic kidney disease stage: unspecified stage Time Spent (min) 85 Time Spent Midlevel A total of 50 minutes spent 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 Attending Spent 35 minutes in addition to the 50 minutes spent by CATHY Carr with 100% of the time spent at bedside discussing treatment options and goals of care.
[2019-11-28] MEDS: ERTAPENEM SODIUM 500 MG in SODIUM CHLORIDE 0.9% 50 ML IV SCH (14:00)
[2019-11-28] MEDS ORDERED: DAPTOmycin 525 MG in SYRINGE 0 ML IV SCH (15:00)
[2019-11-28] MEDS: HYDROCORTISONE 10 MG TAB PO SCH (16:01)
--- NOTE | 2019-11-28 16:18 | Nephrology Progress Note ---
Date of Service November 28, 2019 Assessment & Plan (1) Acute on chronic renal failure: Patient with HECTOR on CKD. Baseline cr in lower 3's. Cr today 4.3 from 4.7. HECTOR due to hypotneison. Monitor with daily BMP. Avoid nephrotoxins. Stop IV saline. (2) Nephrostomy status: Nephrostomy tube working well. Urology following. No need for surgical intervention at the moment (3) Hypotension: Likely due to adrenal insufficiency. Will transition to home dose of steroids this evening. If BP remains stable, patient can hopefully go home tomorrow. Discussed with Dr. Garza Admission and Anticipated Discharge Date Admission Date: November 26, 2019 Subjective Patient feels better today. BP is better on steroids. he is on antibiotics but cultures negative. No SOB. No leg swelling. he wants to go home Review of Systems Review of Systems: All systems reviewed & are unremarkable except as noted in HPI & below Physical Exam Physical Exam: General exam: Appears comfortable, no acute distress HEENT: Pupils are equal and reactive to light Neck: No JVD, neck is supple trachea is midline Respiratory system: Clear breath sounds bilaterally. Gastrointestinal: Abdomen is soft, non distended, non tender, bowel sounds are present CVS: Regular rate and rhythm. No murmurs, rubs or gallops Musculoskeletal: No joint or muscle tenderness Extremities: Non tender, trace edema, peripheral pulses are present Neuro: Oriented, no tremors, no focal neurological deficits Skin: No rashes Results & Data ([facility]) Vital Signs (Past 12 Hours) Vital Signs Temp Pulse Resp BP Pulse Ox 11/28/19 12:11 36.4 C L 63 18 124/73 96 11/28/19 08:53 36.3 C L 76 18 128/75 97 11/28/19 07:42 59 L 11/28/19 04:21 36.3 C L 72 18 94/61 L 94 Laboratory Results 11/28/19 03:48 11/28/19 03:48 WBC 8.27 RBC 3.75 L MCV 80.0 MCH 25.1 MCHC 31.3 L RDW Std Deviation 51.6 H RDW Coeff of Scottie 17.5 H Plt Count 268 MPV 8.8 (1) Acute on chronic renal failure Acute renal failure type: unspecified Chronic kidney disease stage: un specified stage Qualified Code(s): N17.9 - Acute kidney failure, unspecified; N18.9 - Chronic kidney disease, unspecified
--- NOTE | 2019-11-28 17:53 | Hospitalist Progress Note ---
Date of Service November 28, 2019 Assessment & Plan (1) Hypotension: (2) Acute on chronic renal failure: (3) Chronic kidney disease, stage 4 (severe): Acute Kidney Injury on CKD IV Baseline Cr:~3 Likely ATN in setting of septic shock H/O Obstructive Uropathy ? Recent chemotherapy could have contributed Cr:7.05>>5.62>>4.36 Was thought to be a poor candidate for renal replacement therapy Appreciate Nephrology/Urology Input No plan for any urological procedure. Septic Shock in setting of adrenal insufficiency Likely Source: Complicated UTI H/O UTIs--ESBL, Enterococcus Weaned off of pressors Blood/Urine Culture: No growth to date Urine culture could be falsely negative due to antibiotic use prior to admission. Daptomycin discontinued Continue Ertapenem Day #3 Discontinue IV fluids Continue IV hydrocortisone>>>Transitioned to hydrocortisone Monitor blood pressure closely Procalcitonin trending down Hyponatremia Hypomagnesemia Metabolic acidosis Received Sodium Bicarbonate Monitor electrolytes and replace as needed Resolved H/O Obstructive uropathy Right nephrostomy tube --CT ABD:Progression of presumed retroperitoneal and peripancreatic lymphadenopathy. This is suboptimally assessed with noncontrast technique. Presumably this relates to the reported malignancy. Increasing size of a right suprarenal nodule, especially in comparison to prior CT from 06/14/2019. This may represent recurrence of the prior right adrenal gland nodule evident on MR from 04/12/2018. Attention on follow-up. Persistent small pericardial effusion. Hepatic steatosis. Polycystic kidneys. Distention of the left renal collecting system concerning for mild left hydronephrosis. 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 --No significant left hydronephrosis.warrants nephrostomy tube on the left Appreciate urology input Tachybradycardia syndrome Left bundle branch block Paroxysmal atrial fibrillation S/P AICD Continue amiodarone Not on anticoagulation due to H/O persistent gross hematuria (4) Hx of total adrenalectomy: H/O Adrenal insufficiency S/P adrenalectomy Continue fludrocortisone Continue hydrocortisone (5) Metastatic malignant melanoma: H/O Metastatic malignant melanoma S/P adrenalectomy, cystectomy CT abd suggestive of progression of retroperitoneal and peripancreatic lymphadenopathy. Currently undergoing palliative chemotherapy/Radiation therapy Received Ipilimumab, on November Follows with Dr. Richards at [facility] Patient prefers no further chemotherapy Poor prognosis Appreciate palliative care input (6) Diabetes mellitus, type II: Last Hb A1C:6.0 Continue ISS/Lantus Monitor BGs (7) Anemia: Anemia of chronic kidney disease Iron deficiency anemia Monitor CBC (8) Sleep apnea: CPAP HS Obesity (morbid) BMI:39.8 DVT Px: Heparin SQ Code status: DNR/DNI Disposition: Plan to discharge home with home health Admission and Anticipated Discharge Date Admission Date: November 26, 2019 Subjective Patient is seen and examined at bedside Eager to get discharged No new complaints Plan to transition him from IV to p.o. steroids Denies any chest pain, SOB, dizziness, nausea, abdominal pain, dysuria Review of Systems Review of Systems: All systems reviewed & are unremarkable except as noted in HPI & below Physical Exam Physical Exam: Physical Exam: Vitals signs as noted above General Appearance:Obese, no apparent distress Head: normocephalic, Atraumatic Eyes: normal inspection, EOMI, PERRL Neck: supple, Trachea midline Respiratory/Chest: Normal breath sounds, CTA, +Pacer Cardiovascular: S1, S2, No murmur Abdomen/GI:Soft, Non tender, Bowel sounds present, R nephrostomy tube Extremities/Musculoskelatal:normal inspection, no edema Neurologic/Psych:AAOX3, grossly no focal neurological deficits Skin: normal color, warm Results & Data Results & Data ([facility]) Vital Signs (Past 12 Hours) Vital Signs Temp Pulse Resp BP Pulse Ox 11/28/19 16:16 36.3 C L 71 17 112/66 96 11/28/19 16:08 69 11/28/19 12:11 36.4 C L 63 18 124/73 96 11/28/19 08:53 36.3 C L 76 18 128/75 97 11/28/19 07:42 59 L Laboratory Results Short CBC 11/28/19 Range/Units 03:48 WBC 8.27 (4.8-10.8) K/uL Hgb 9.4 L (14.0-18.0) g/dL Hct 30.0 L (42-52) % Plt Count 268 (130-400) K/uL BMP 11/28/19 03:48 Sodium 139 Potassium 4.5 Chloride 109 H Carbon Dioxide 23 BUN 53 H Creatinine 4.36 H D Glucose 141 H Calcium 8.4 L (1) Acute on chronic renal failure Chronic kidney disease stage: stage 4 (severe)
[2019-11-28] MEDS: CALCITRIOL 0.25 MCG CAPSULE PO SCH (20:35)
[2019-11-29] MEDS ORDERED: HYDROCORTISONE 10 MG TAB PO SCH (05:00)
[2019-11-29] MEDS: OXYCODONE/ACETAMINOPHEN 5mg/325mg TAB PO PRN ×2 (05:18→14:43)
[2019-11-29 06:18] LABS: Hematocrit (blood only) 33.2 % (42-52); Hemoglobin 10.2 g/dL (14.0-18.0)
[2019-11-29 06:46] LABS: BUN Creatinine Ratio 15.4 (10-20); Calcium 8.5 mg/dl (8.5-10.1); Creatinine Clr Calc Pharmacy 26.5 ml/min; Est GFR (African American) 20.5; Est GFR (Non-African American) 17.7; Potassium 4.2 mmol/L (3.5-5.1)
[2019-11-29 07:07] VITALS: O2SAT 96
[2019-11-29] MEDS: INSULIN ASPART 100 UNITS/ML 3 ML PEN SC SCH ×2 (08:19→12:24)
[2019-11-29] MEDS: INSULIN GLARGINE SOLOSTAR 100 UNITS/ML 3 ML PEN SC SCH (08:20)
[2019-11-29] MEDS: HEPARIN SOD 5,000 UNIT/0.5 ML VIAL SQ SCH (08:20)
[2019-11-29] MEDS: FLUDROCORTISONE ACETATE 0.1 MG TAB PO SCH (08:21)
[2019-11-29] MEDS: AMIODARONE 200 MG TAB PO SCH (08:21)
[2019-11-29] MEDS: CHOLECALCIFEROL 1,000 UNITS 25 MCG TAB PO SCH (08:21)
[2019-11-29] MEDS: DOCUSATE SODIUM 100 MG CAP PO SCH (08:22)
--- NOTE | 2019-11-29 09:45 | Nephrology Progress Note ---
Date of Service November 29, 2019 Assessment & Plan (1) Acute on chronic renal failure: Patient with HECTOR on CKD. Baseline cr in lower 3's. Cr today 3.3 from 4.3 on 11/28/2019. HECTOR due to hypotension. Monitor with daily BMP. Avoid nephrotoxins. From renal standpoint patient can be discharged today. He will need repeat BMP on Thursday. He can follow-up with me next week via telemedicine (2) Nephrostomy status: Nephrostomy tube working well. Urology following. No need for surgical intervention at the moment (3) Hypotension: Likely due to adrenal insufficiency. Continue home dose of hydrocortisone and fludrocortisone.. Discussed with Dr. Garza Admission and Anticipated Discharge Date Admission Date: November 26, 2019 Subjective Patient feels better today denies any shortness of breath or leg swelling. No pain. He is eager to be discharged home. Blood pressure is stable. Review of Systems Review of Systems: All systems reviewed & are unremarkable except as noted in HPI & below Physical Exam Physical Exam: General exam: Appears comfortable, no acute distress HEENT: Pupils are equal and reactive to light Neck: No JVD, neck is supple trachea is midline Respiratory system: Clear breath sounds bilaterally. Gastrointestinal: Abdomen is soft, non distended, non tender, bowel sounds are present CVS: Regular rate and rhythm. No murmurs, rubs or gallops Musculoskeletal: No joint or muscle tenderness Extremities: Non tender, no edema, peripheral pulses are present Neuro: Oriented, no tremors, no focal neurological deficits Skin: No rashes Results & Data ([facility] [place]) Vital Signs (Past 12 Hours) Vital Signs Temp Pulse Pulse Resp BP BP Pulse Ox 11/29/19 07:07 36.9 C 67 18 121/70 96 11/29/19 03:57 36.5 C 68 18 129/75 98 11/28/19 23:59 61 11/28/19 23:35 36.4 C L 70 20 134/75 99 Laboratory Results 11/29/19 05:37 (1) Acute on chronic renal failure Acute renal failure type: unspecified Chronic kidney disease stage: unspecified stage Qualified Code(s): N17.9 - Acute kidney failure, unspecified; N18.9 - Chronic kidney disease, unspecified
[2019-11-29 11:31] VITALS: TEMP 98.2
[2019-11-29] MEDS: HYDROCORTISONE 10 MG TAB PO SCH ×2 (12:23→14:43)
[2019-11-29 14:04] VITALS: BP 128/67; PULSE 67
--- NOTE | 2019-11-29 14:07 | Hospitalist Progress Note ---
Date of Service November 29, 2019 Assessment & Plan (1) Hypotension: (2) Acute on chronic renal failure: (3) Chronic kidney disease, stage 4 (severe): Acute Kidney Injury on CKD IV Baseline Cr:~3 Likely ATN in setting of septic shock H/O Obstructive Uropathy ? Recent chemotherapy could have contributed Cr:7.05>>5.62>>4.36>>3.30 Was thought to be a poor candidate for renal replacement therapy Appreciate Nephrology/Urology Input No plan for any urological procedure. Plan to repeat BMP in 1 week as outpatient Needs follow-up with Nephrology upon discharge Septic Shock in setting of adrenal insufficiency Likely Source: Complicated UTI H/O UTIs--ESBL, Enterococcus Weaned off of pressors Blood/Urine Culture: No growth to date Urine culture could be falsely negative due to antibiotic use prior to admission. Daptomycin discontinued Continue Ertapenem Day #4 Discontinue IV fluids Continue IV hydrocortisone>>>Transitioned to hydrocortisone Monitor blood pressure stable off IV steroids. Hyponatremia Hypomagnesemia Metabolic acidosis Received Sodium Bicarbonate Monitor electrolytes and replace as needed Resolved H/O Obstructive uropathy Right nephrostomy tube --CT ABD:Progression of presumed retroperitoneal and peripancreatic lymphadenop athy. This is suboptimally assessed with noncontrast technique. Presumably this relates to the reported malignancy. Increasing size of a right suprarenal nodule, especially in comparison to prior CT from 06/14/2019. This may represent recurrence of the prior right adrenal gland nodule evident on MR from 04/12/2018. Attention on follow-up. Persistent small pericardial effusion. Hepatic steatosis. Polycystic kidneys. Distention of the left renal collecting system concerning for mild left hydronephrosis. 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 --No significant left hydronephrosis.warrants nephrostomy tube on the left Appreciate urology input Tachybradycardia syndrome Left bundle branch block Paroxysmal atrial fibrillation S/P AICD Continue amiodarone Not on anticoagulation due to H/O persistent gross hematuria (4) Hx of total adrenalectomy: H/O Adrenal insufficiency S/P adrenalectomy Continue fludrocortisone Continue hydrocortisone (5) Metastatic malignant melanoma: H/O Metastatic malignant melanoma S/P adrenalectomy, cystectomy CT abd suggestive of progression of retroperitoneal and peripancreatic lymphadenopathy. Currently undergoing palliative chemotherapy/Radiation therapy Received Ipilimumab, on November Follows with Dr. Richards at [facility] Patient prefers no further chemotherapy Poor prognosis Appreciate palliative care input (6) Diabetes mellitus, type II: Last Hb A1C:6.0 Continue ISS/Lantus Monitor BGs (7) Anemia: Anemia of chronic kidney disease Iron deficiency anemia Monitor CBC (8) Sleep apnea: CPAP HS Obesity (morbid) BMI:39.8 DVT Px: Heparin SQ Code status: DNR/DNI Disposition: Plan to discharge home with home health Admission and Anticipated Discharge Date Admission Date: November 26, 2019 Subjective Patient is seen and examined at bedside No new complaints BP remains stable off IV steroids Eager to get discharged Denies any chest pain, SOB, dizziness, nausea, abdominal pain, dysuria Discussed with nephrology today. Review of Systems Review of Systems: All systems reviewed & are unremarkable except as noted in HPI & below Physical Exam Physical Exam: Physical Exam: Vitals signs as noted above General Appearance:Obese, no apparent distress Head: normocephalic, Atraumatic Eyes: normal inspection, EOMI, PERRL Neck: supple, Trachea midline Respiratory/Chest: Normal breath sounds, CTA, +Pacer Cardiovascular: S1, S2, No murmur Abdomen/GI:Soft, Non tender, Bowel sounds present, R nephrostomy tube Extremities/Musculoskelatal:normal inspection, no edema Neurologic/Psych:AAOX3, grossly no focal neurological deficits Skin: normal color, warm Results & Data Results & [facility] Vital Signs (Past 12 Hours) Vital Signs Temp Pulse Resp BP BP Pulse Ox 11/29/19 11:29 36.8 C 69 18 151/73 H 96 11/29/19 07:07 36.9 C 67 18 121/70 96 11/29/19 03:57 36.5 C 68 18 129/75 98 Laboratory Results Short CBC 11/29/19 Range/Units 05:37 Hgb 10.2 L (14.0-18.0) g/dL Hct 33.2 L (42-52) % BMP 11/29/19 05:37 Sodium 141 Potassium 4.2 Chloride 110 H Carbon Dioxide 22 BUN 51 H Creatinine 3.30 H D Glucose 87 Calcium 8.5 (1) Acute on chronic renal failure Chronic kidney disease stage: stage 4 (severe)
[2019-11-29] MEDS: ERTAPENEM SODIUM 500 MG in SODIUM CHLORIDE 0.9% 50 ML IV SCH (14:08)
--- NOTE | 2019-11-29 14:32 | Discharge Summary ---
Date of Service November 29, 2019 Admission HPI Per Admitting Provider Mr. 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 Moore at [facility]), s/p percutaneous right nephrostomy tube, currently undergoing palliative treatment (ipilimumab ) in [place], paroxysmal atrial fibrillation, LBBB, tachybradycardia syndrome s/p pacemaker, DM type II (insulin-dependent), CKD stage IV, obesity, anemia (of chronic disease, and iron deficiency anemia), hx of ESBL UTI in 07/2019, and recent hx of Enterobacter cloacae UTI, who presents to ER with weakness, malaise, dysuria, dark and foul-smelling urine. Patient seen by [facility] nurse, recently was diagnosed with possible UTI, started antibiotic at home however patient has not been improving and not feeling well for past several days, and so nurse was trying to obtain IV access, and obtain labs however she was not able to. She recommended that patient presented to emergency room. Patient also reports recently having treatment with ipilimumab in [place] (on 11/20) and has been feeling even worse since then. Previously followed with Dr. Culp, oncologist (received keytruda, which he could not tolerate, then opdivo which was d/c'ed in 2018 d/t progression of disease). Patient now sees Dr. Richards in [place] for palliative therapy with ipilimumab. Patient denies fever. He reports feeling very weak, having some chills occasionally and "going downhill". Denies any chest pain, palpitations, shortness of breath, cough, abdominal pain, nausea or vomiting. In emergency room patient was found hypotensive, on initial evaluation blood pressure was about 70s over 40s. He received IV fluids, 2 L, with minimal improvement of blood pressure. He was found to have HECTOR on CKD, creatinine elevated at 7. Nephrology was contacted by ED physician, and recommended to continue current management, without need of dialysis at this time. Blood cultures and urine cultures were obtained, UA was not done as patient did not have enough urine for UA and only urine culture is currently pending. Given recent history of UTIs, patient was started on empiric antibiotic treatment, with ertapenem and daptomycin. Central line was placed and vasopressors were started to manage pt's hypotension. Patient is alert and oriented, says that he now feels better. Reports that his urine looks somewhat more clear since he came to hospital. Discussed the CODE STATUS with him and ICU placement, patient states that he would like to remain DNR/DNI, however he certainly wants to continue current management with antibiotics and vasopressors. Admission Exam Per Admitting Provider Physical Exam Physical Exam: Obese male sitting up in bed, alert and oriented, weak and ill-appearing Constitutional: WD/WN, vitals as above + ill appearing and + obese Eyes: PERRL, conjunctivae normal, anicteric sclerae EOM intact bilaterally ENMT: external ear and nose normal, oropharynx normal Neck: Central line placed R IJ Respiratory: normal respiratory effort, lungs clear to auscultation Auscultation: + rhonchi (mild bibasilar) Cardiovascular: Rate/Rhythm: regular rate Heart Sounds: no murmur Extremities: + pedal edema (1+ b/l) Chest (Breasts): Chest: normal inspection of chest Gastrointestinal (Abdomen): Inspection/Auscultation: abdomen normal to inspection and normal bowel sounds Percussion/Palpation: abdomen soft; abdomen nontender and no guarding Obese Musculoskeletal: no cyanosis or clubbing, extremities motor strength 5/5 Head/Neck/Chest: normocephalic, head atraumatic and neck supple Skin: no rashes, warm and dry Neurologic: PERRL, EOMI, accommodation nl, no face palsy, no dysarthria moves all extremities; no focal motor deficits Motor/Sensory: no tremor Psychiatric: A+Ox3, euthymic affect Genitourinary: no CVA tenderness Right nephrostomy tube placed, drains dark rivera urine, no erythema or edema or any drainage noted from nephrostomy site Principal Diagnosis Septic Shock Acute Kidney Injury on CKD IV Complicated UTI Hyponatremia Hypomagnesemia Metabolic acidosis Discharge Data Allergies Allergy/AdvReac Type Severity Reaction Status Date / Time perflutren AdvReac Intermediate GI SYMPTOMS Verified 09/29/19 16:55 propylene glycol AdvReac Intermediate GI SYMPTOMS Verified 09/29/19 16:55 simvastatin AdvReac Intermediate JOINT AND Verified 09/29/19 16:55 MUSCLE PAIN Consultations 11/26/19 17:28 ED Decision to Admit Stat 11/26/19 18:16 Consult Case Management - Discharge Planning Routine Consult Oleomargarine Maker Routine 11/26/19 19:54 Consult Nephrology Routine 11/26/19 20:38 Consult Urology Routine 11/27/19 07:48 Consult Palliative Care Routine Procedures Performed --CT ABD:Progression of presumed retroperitoneal and peripancreatic lymphadenopathy. This is suboptimally assessed with noncontrast technique. Presumably this relates to the reported malignancy. Increasing size of a right suprarenal nodule, especially in comparison to prior CT from 06/14/2019. This may represent recurrence of the prior right adrenal gland nodule evident on MR from 04/12/2018. Attention on follow-up. Persistent small pericardial effusion. Hepatic steatosis. Polycystic kidneys. Distention of the left renal collecting system concerning for mild left hydronephrosis. 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 Ordered Studies 11/26/19 12:52 CT abd pelvis wo con Stat Hospital Course (1) Hypotension: (2) Acute on chronic renal failure: (3) Chronic kidney disease, stage 4 (severe): Acute Kidney Injury on CKD IV Baseline Cr:~3 Likely ATN in setting of septic shock H/O Obstructive Uropathy ? Recent chemotherapy could have contributed Cr:7.05>>5.62>>4.36>>3.30 Was thought to be a poor candidate for renal replacement therapy Appreciate Nephrology/Urology Input No plan for any urological procedure. Plan to repeat BMP in 1 week as outpatient Needs follow-up with Nephrology upon discharge Septic Shock in setting of adrenal insufficiency Likely Source: Complicated UTI H/O UTIs--ESBL, Enterococcus Weaned off of pressors Blood/Urine Culture: No growth to date Urine culture could be falsely negative due to antibiotic use prior to admission. Daptomycin discontinued Continue Ertapenem Day #4 Discontinue IV fluids Continue IV hydrocortisone>>>Transitioned to hydrocortisone Monitor blood pressure stable off IV steroids. Hyponatremia Hypomagnesemia Metabolic acidosis Received Sodium Bicarbonate Monitor electrolytes and replace as needed Resolved H/O Obstructive uropathy Right nephrostomy tube --CT ABD:Progression of presumed retroperitoneal and peripancreatic lymphadenopathy. This is suboptimally assessed with noncontrast technique. Presumably this relates to the reported malignancy. Increasing size of a right suprarenal nodule, especially in comparison to prior CT from 06/14/2019. This may represent recurrence of the prior right adrenal gland nodule evident on MR from 04/12/2018. Attention on follow-up. Persistent small pericardial effusion. Hepatic steatosis. Polycystic kidneys. Distention of the left renal collecting system concerning for mild left hydronephrosis. 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 --No significant left hydronephrosis.warrants nephrostomy tube on the left Appreciate urology input Tachybradycardia syndrome Left bundle branch block Paroxysmal atrial fibrillation S/P AICD Continue amiodarone Not on anticoagulation due to H/O persistent gross hematuria (4) Hx of total adrenalectomy: H/O Adrenal insufficiency S/P adrenalectomy Continue fludrocortisone Continue hydrocortisone (5) Metastatic malignant melanoma: H/O Metastatic malignant melanoma S/P adrenalectomy, cystectomy CT abd suggestive of progression of retroperitoneal and peripancreatic lymphadenopathy. Currently undergoing palliative chemotherapy/Radiation therapy Received Ipilimumab, on November Follows with Dr. Richards at [facility] Patient prefers no further chemotherapy Poor prognosis Appreciate palliative care input (6) Diabetes mellitus, type II: Last Hb A1C:6.0 Continue ISS/Lantus Monitor BGs (7) Anemia: Anemia of chronic kidney disease Iron deficiency anemia Monitor CBC (8) Sleep apnea: CPAP HS Obesity (morbid) BMI:39.8 DVT Px: Heparin SQ Code status: DNR/DNI Disposition: Plan to discharge home with home health Total Time Total Time Spent Total Time Spent (In Minutes): 37 minutes Discharge Plan Discharge Items Patient Disposition: Home - Home Health Services Reason For Visit: HYPOTENSION, WEAKNESS Discharge Diagnosis: Septic Shock Acute Kidney Injury on CKD IV Complicated UTI Hyponatremia Hypomagnesemia Metabolic acidosis Activity: Resume your previous activity Exercise/Sports: Gradually increase as tolerated Non-emergency contact: Primary Care Provider and [employer] Worker Call non-emergency contact if: you have any medication questions, your symptoms worsen, your pain is not controlled, your pain is worsening, your pain is unusual for you, your pain is concerning for you and you have a fever Follow-up/Referrals: Prasad Mcguire DO [Primary Care Provider] - 12/06/19 10:40 am (12/06/2019 10:40 AM James Harvey MD Family Practice [facility] PLEASE NOTE: Your appointment is at [facility] because the [facility] did not have an open appointment within the appropriate time frame. ) Diet: Carb Consistent or DM2 Ambulatory Orders: Basic Metabolic Panel (Routine) Timeframe: 20191205 Location: Determined by Patient Ordered By: Estuardo Reddy Attending Provider Instructions: Follow up with for Primary Care on December 06, 2019 at 10:25 AM Follow up with your Sawmill Or Timber Yard Worker in 1 week as advised Get Blood test (Basic Metabolic Panel) on December 05, 2019 and follow up with for results. Complete the antibiotic course as prescribed. (Ciprofloxacin 500mg daily for 5 days) Your blood cultures are pending at the time of discharge. Follow-up with your physician for results. Seek immediate medical attention if your symptoms reoccur or worsen Pending Studies at Discharge: Yes Studies:: Blood Cultures Stand-Alone Forms: My [facility] [place] [facility] for Cause, Smoking Cessation Medications and DC Order Prescriptions: New ciprofloxacin HCl 500 mg tablet 500 mg PO DAILY Qty: 5 RF: 0 Continued ondansetron HCl 4 mg tablet 4 mg PO Q8H PRN (Reason: Nausea) RF: 0 docusate sodium [Colace] 100 mg Capsule 100 mg PO BID RF: 0 cholecalciferol (vitamin D3) [Vitamin D3] 1,000 unit Capsule 1,000 unit PO QAM RF: 0 acetaminophen [Tylenol Extra Strength] 500 mg Tablet 500 mg PO Q6H PRN (Reason: Pain) RF: 0 triamcinolone acetonide 0.1 % Cream 1 applic TOPICAL BID PRN (Reason: Rash) RF: 0 methylprednisolone sodium succ 125 mg Recon Soln 125 mg IM DIRECTED PRN (Reason: EMERGENCY CASE) RF: 0 amiodarone 200 mg tablet 200 mg PO QAM RF: 0 hydrocortisone 10 mg tablet 10 mg PO DAILY@1200,1500 RF: 0 hydrocortisone 10 mg tablet 20 mg PO DAILY@0500 RF: 0 fludrocortisone 0.1 mg tablet 0.1 mg PO QAM RF: 0 Lantus Solostar U-100 Insulin 100 unit/mL (3 mL) insulin pen 30 unit SC BID RF: 0 lorazepam 1 mg tablet 1 mg PO DAILY PRN (Reason: Anxiety) RF: 0 calcitriol 0.5 mcg capsule 0.5 mcg PO HS RF: 0 torsemide 20 mg tablet 20 mg PO MOWEFR@0900 Qty: 30 RF: 1 prochlorperazine maleate 5 mg tablet 5 mg PO Q6H PRN (Reason: Nausea) RF: 0 oxycodone-acetaminophen 5-325 mg tablet 1 tab PO Q8H PRN (Reason: Pain) RF: 0 Discontinued amoxicillin 500 mg capsule 500 mg PO BID RF: 0 Discharge Orders: Discharge Order (Routine); Ordered 11/29/19 Ordered By: Esturado Garza Admission Data Admit Date/Time: 11/26/19 18:16 Attending Provider: Estuardo Garza Admit Provider: [place] Primary Care Provider: Prasad Mcguire Other Providers: [facility] ; [place] ; Everette Neal ; Micha Weber ; Radha Wolf Other Interventions: Discharge Summary Assessment (RN) Last Done: 11/29/19 14:31 DC Date/Time DO NOT enter until pt leaves facility: 11/29/19 15:18
--- NOTE | 2019-11-29 21:56 | Electrocardiogram Report ---
Test Reason : Blood Pressure : / mmHG Vent. Rate : 068 BPM Atrial Rate : 068 BPM P-R Int : 210 ms QRS Dur : 102 ms QT Int : 400 ms P-R-T Axes : 021 -02 041 degrees QTc Int : 425 ms Atrial-paced rhythm with prolonged AV conduction ST elevation, consider inferolateral injury pattern Abnormal ECG When compared with ECG of 26-NOV-2019 14:26, Electronic atrial pacemaker has replaced Sinus rhythm Left bundle branch block is no longer Present Confirmed by Milton Browning ([id number]) on 11/29/2019 9:55:56 PM Referred By: REFERRED SELF Confirmed By:Milton Browning
== END 2019-11-29 15:18 | disposition home health service (06) | DRG 871 ==
LOC: ED 12:23 → SUATTDRO 18:16 → 1E 18:16 → 2N 11-27 11:20

== ENCOUNTER 2020-04-21 11:23 | Inpatient (IN) ==
[2020-04-21] MEDS ORDERED: CEFEPIME 2,000 MG/20 ML VIAL IV STA (11:52)
[2020-04-21] MEDS ORDERED: HYDROCORTISONE SOD SUCCINATE 100 MG/2 ML VIAL IV STA (11:52)
[2020-04-21] MEDS ORDERED: ONDANSETRON INJ 2 MG/ML 2 ML VIAL IV STA (11:56)
[2020-04-21] MEDS ORDERED: SODIUM CHLORIDE 0.9% 1000ML 1,000 ML IV SCH ×2 (12:00→12:54)
--- NOTE | 2020-04-21 12:01 | Emergency Department Note ---
History of Present Illness General Chief complaint: Illness Stated complaint: DIZZY,UPSET STOMACH,BED SORES,CA PT Time Seen by Provider: 04/21/20 11:44 Source: patient Mode of arrival: EMS Limitations: clinical acuity History of Present Illness Provider complaint: Not feeling well This is a 75-year-old male who presents to the ED with a chief complaint of shortness of breath, nausea, chills and sweats, bedsores, lightheadedness and not feeling well. He has had a poor appetite and generalized weakness. His symptoms started yesterday. He had decreased p.o. intake yesterday according to his son. Nothing today. He has history of melanoma with metastatic disease into his abdomen. He also has a history of adrenal gland removal. He has had sepsis in the past. He also has a history of congestive heart failure as well as numerous other medical problems. Symptoms are moderate to severe. Home Medications Home Medications Medication Instructions Recorded Confirmed Type cholecalciferol (vitamin D3) 1,000 unit PO QAM 04/20/18 04/21/20 History [Vitamin D3] docusate sodium [Colace] 100 mg PO BID 04/20/18 04/21/20 History ondansetron HCl 4 mg tablet 4 mg PO Q8H PRN tab 08/10/18 04/21/20 History acetaminophen [Tylenol Extra 500 mg PO Q6H PRN 05/22/19 04/21/20 History Strength] methylprednisolone sodium succ 125 mg IM DIRECTED PRN 05/22/19 04/21/20 History Lantus Solostar U-100 Insulin 15 unit SC BID 07/02/19 04/21/20 History hydrocortisone 10 mg PO DAILY@1200,1500 07/02/19 04/21/20 History hydrocortisone 20 mg PO DAILY@0500 07/02/19 04/21/20 History lorazepam 1 mg PO DAILY PRN 07/29/19 04/21/20 History amiodarone 200 mg PO QAM 08/17/19 04/21/20 History calcitriol 0.5 mcg PO HS 09/09/19 04/21/20 History torsemide 20 mg PO MOWEFR@0900 #30 tab 10/02/19 04/21/20 Rx oxycodone-acetaminophen 1 tab PO Q8H PRN 11/26/19 04/21/20 History prochlorperazine maleate 5 mg PO Q6H PRN 11/26/19 04/21/20 History fentanyl 12 mcg TRANSDERMAL Q72H 04/21/20 04/21/20 History sennosides-docusate sodium 2 tab PO BID 04/21/20 04/21/20 History [Senexon-S] Allergies Allergy/AdvReac Type Severity Reaction Status Date / Time perflutren AdvReac Intermediate GI SYMPTOMS Verified 04/21/20 13:29 propylene glycol AdvReac Intermediate GI SYMPTOMS Verified 04/21/20 13:29 simvastatin AdvReac Intermediate JOINT AND Verified 04/21/20 13:29 MUSCLE PAIN Past Med/Surg History Medical History Adrenal insufficiency S/P LEFT ADRENALECTOMY- ON CHRONIC HYDROCORTISONE Anxiety Cardiomyopathy Chronic kidney disease, stage 4 (severe) Degenerative disc disease Diabetes mellitus, type II Dyslipidemia H/O transfusion of packed red blood cells S/P 2 UNITS (2016) History of immunotherapy Keytruda x 2 Cycles (had to stop after 2nd cycle) Current Opdivo q 2 weeks (currently on hold) - started 05/2017 - 04/2018 Hypertension Metastatic malignant melanoma Morbid obesity Sleep apnea CPAP HS Surgical History History of colonoscopy 2016 History of esophagogastroduodenoscopy (EGD) 2017 History of tooth extraction Hx of cystoscopy 05/05/18 - BLADDER TUMOR EXCISION Hx of total adrenalectomy LEFT SIDE-- HX B/L ADRENAL MASSES; UNDERWENT LAP LEFT ADRENAL MASS EXCISION 04/14/17; PATHOLOGY METASTATIC MALIGNANT MELANOMA WITH VASCULAR INVASION Nephrostomy status Family History Father No problems noted. Mother Colon cancer, Onset Age: 85 Chemo and Resection - Alive and well now Sister Breast cancer, Onset Age: 55 Had Radiation - Alive and well now Sister No problems noted. Sister No problems noted. Sister No problems noted. Sister No problems noted. Brother No problems noted. Son No problems noted. Son No problems noted. Social History Smoking Status: Unknown if ever smoked Second Hand Exposure: No; Hx Alcohol Use: No Hx Substance Use: No Preferred Language: Turkmen Communication Ability: Effective Visual Impairment: Limited Hearing Ability: Hard of Hearing Slag Expander Required: No Beliefs That Will Affect Care: None marital status: Life Partner Current Living Situation: Significant Other current occupational status: retired current occupation: Retired - [employer] Feels Safe at Home: Yes caffeine: Yes (2 cups of coffee/day ) during the past year weight has: remained stable Assistive Devices: Cane Review of Systems A total of 10 systems reviewed and were otherwise negative Physical Exam Vital Signs Vital Signs - 24 hr 04/21/20 11:31 04/21/20 11:53 04/21/20 12:08 Temperature 36.7 C Temperature Source Oral Pulse Rate 125 H Pulse Rate [Apical] 106 H Respiratory Rate 20 Respiratory Effort / Characteristics Non-Labored Spontaneous Non-Labored Respiratory Depth Normal Respiratory Pattern Regular Blood Pressure 82/55 L Blood Pressure [Left Arm] 78/51 L 78/46 L Blood Pressure Mean 64 Blood Pressure Mean [Left Arm] 60 56 Pulse Oximetry 97 93 Oxygen Delivery Method Room Air Room Air Oxygen Flow Rate Sepsis Recent Fever Within 48 Hours No Sepsis New/Unexplained Change in Mental Status No Sepsis Action Taken by Nursing Physician Notified 04/21/20 12:15 04/21/20 12:17 04/21/20 12:22 Temperature Temperature Source Pulse Rate Pulse Rate [Apical] 104 H Respiratory Rate Respiratory Effort / Characteristics Respiratory Depth Respiratory Pattern Blood Pressure Blood Pressure [Left Arm] 70/44 L 88/48 L Blood Pressure Mean Blood Pressure Mean [Left Arm] 52 61 Pulse Oximetry 100 100 92 Oxygen Delivery Method Nasal Cannula Nasal Cannula Room Air Oxygen Flow Rate 2 2 Sepsis Recent Fever Within 48 Hours Sepsis New/Unexplained Change in Mental Status Sepsis Action Taken by Nursing 04/21/20 12:24 04/21/20 12:46 04/21/20 13:19 Temperature Temperature Source Pulse Rate Pulse Rate [Apical] 95 H 89 Respiratory Rate 23 Respiratory Effort / Characteristics Respiratory Depth Respiratory Pattern Blood Pressure Blood Pressure [Left Arm] 84/44 L 111/42 L 97/57 L Blood Pressure Mean Blood Pressure Mean [Left Arm] 57 65 70 Pulse Oximetry 100 100 100 Oxygen Delivery Method Nasal Cannula Nasal Cannula Nasal Cannula Oxygen Flow Rate 2 2 2 Sepsis Recent Fever Within 48 Hours Sepsis New/Unexplained Change in Mental Status Sepsis Action Taken by Nursing 04/21/20 13:54 Temperature Temperature Source Pulse Rate Pulse Rate [Apical] 89 Respiratory Rate 18 Respiratory Effort / Characteristics Respiratory Depth Respiratory Pattern Blood Pressure Blood Pressure [Left Arm] 102/56 L Blood Pressure Mean Blood Pressure Mean [Left Arm] 71 Pulse Oximetry 100 Oxygen Delivery Method Nasal Cannula Oxygen Flow Rate 2 Sepsis Recent Fever Within 48 Hours Sepsis New/Unexplained Change in Mental Status Sepsis Action Taken by Nursing CONSTITUTIONAL/VITAL SIGNS: Reviewed / noted above. GENERAL: Moderately ill in appearance. INTEGUMENTARY: Warm, diaphoretic, and slightly pale. HEAD: Normocephalic. EYES: without scleral icterus or trauma. ENT/OROPHARYNX: clear and moist. LYMPHADENOPATHY/NECK: Is supple without lymphadenopathy or meningismus. RESPIRATORY: Lungs clear and equal. CARDIOVASCULAR: Regular rate and rhythm. GI/ABDOMEN: Soft and mildly tender diffusely. No pulsatile mass. No rebound or guarding. Normal bowel sounds. EXTREMITIES: Warm and well perfused. BACK: No CVA tenderness. NEUROLOGICAL: Intact without focal deficits. PSYCHIATRIC: normal affect. MUSCULOSKELETAL: Normally developed with average muscle tone. TRIAGE NURSING DOCUMENTATION REVIEWED. Course Administered Medications Sodium Chloride (Nss 1000ml) 1,000 mls @ 999 mls/hr IV .Q1H1M ONE Stop: 04/21/20 14:58 Last Admin: 04/21/20 14:10 Dose: 999 mls/hr Documented by: [id number] Discontinued Medications Hydrocortisone Sodium Succinate (Hydrocortisone Sod Succinate 100 Mg/2 Ml Vial) 100 mg IV NOW [facility] Stop: 04/21/20 11:53 Last Admin: 04/21/20 12:02 Dose: 100 mg Documented by: [id number] Sodium Chloride (Nss 1000ml) 1,000 mls @ 999 mls/hr IV .Q1H1M RENZO Stop: 04/21/20 13:53 Last Infusion: 04/21/20 14:02 Dose: 0 mls/hr Documented by: [id number] Admin: 04/21/20 13:00 Dose: 999 mls/hr Documented by: [id number] Sodium Chloride (Nss 1000ml) 1,000 mls @ 999 mls/hr IV .Q1H1M RENZO Stop: 04/21/20 12:54 Last Infusion: 04/21/20 13:13 Dose: 0 mls/hr Documented by: [id number] Admin: 04/21/20 11:59 Dose: 999 mls/hr Documented by: [id number] Cefepime HCl (Maxipime) 2,000 mg in 20 mls @ 5 mls/min IV NOW STA; Protocol Stop: 04/21/20 11:55 Last Admin: 04/21/20 12:02 Dose: 5 mls/min Documented by: [id number] Ondansetron HCl (Ondansetron Inj 2 Mg/Ml 2 Ml Vial) 4 mg IV NOW STA Stop: 04/21/20 11:57 Last Admin: 04/21/20 12:02 Dose: 4 mg Documented by: [id number] Medical Decision Making Differential Diagnosis Differential includes acute coronary syndrome, myocardial infarction, CVA, TIA, anemia, infection, pneumonia, UTI, pyelonephritis, poor nutrition, dehydration, electrolyte disturbance,hypoglycemia. Medical Records Attestation: I reviewed the patient's medical records. Home Medications Current Medication List: was personally reviewed by me Laboratory Data Attestation: I reviewed the patient's lab results. Result diagrams: 04/21/20 11:53 04/21/20 11:53 Lab Results 04/21/20 04/21/20 04/21/20 Range/Units 11:53 11:53 11:53 WBC 8.78 (4.8-10.8) K/uL RBC 4.26 L (4.7-6.1) M/uL Hgb 10.5 L (14.0-18.0) g/dL Hct 34.7 L (42-52) % MCV 81.5 (80-100) fL MCH 24.6 L (25-34) pg MCHC 30.3 L (32-36) g/dL RDW Std Deviation 51.1 H (36.4-46.3) fL RDW Coeff of Scottie 17.0 H (11.5-14.5) % Plt Count 292 (130-400) K/uL MPV 9.0 (7.4-10.4) fL Immature Gran % (Auto) 0.3 % Neut % (Auto) 76.1 % Lymph % (Auto) 13.4 % [place] % (Auto) 9.1 % Eos % (Auto) 0.9 % Baso % (Auto) 0.2 % Neut # (Auto) 6.67 H (1.4-6.5) K/uL Lymph # (Auto) 1.18 L (1.2-3.4) K/uL Hardeman # (Auto) 0.80 H (0.11-0.59) K/uL Eos # (Auto) 0.08 (0-0.5) K/uL Baso # (Auto) 0.02 (0-0.2) K/uL Immature Gran # (Auto) 0.03 H (0.00-0.02) K/uL PT 12.0 (9.0-12.0) Seconds INR 1.1 (0.9-1.1) APTT 31.3 H (21.0-31.0) Seconds PTT Ratio 1.1 Sodium 136 (136-145) mmol/L Potassium 4.2 (3.5-5.1) mmol/L Chloride 102 (98-107) mmol/L Carbon Dioxide 24 (21-32) mmol/L Anion Gap 10.0 (3-11) BUN 39 H (7-18) mg/dl Creatinine 3.97 H (0.6-1.4) mg/dl Est Cr Clr Drug Dosing 20.7 ml/min Est GFR ( Amer) 16.3 Est GFR (Non-Af Amer) 14.0 BUN/Creatinine Ratio 9.9 L (10-20) Glucose 81 (70-99) mg/dl Lactate (0.4-2.0) mmol/L Calcium 10.2 H (8.5-10.1) mg/dl Magnesium 1.6 L (1.8-2.4) mg/dl Total Bilirubin 0.7 (0.2-1) mg/dl AST 23 (15-37) U/L ALT 13 (12-78) U/L Alkaline Phosphatase 99 (45-117) U/L Troponin I < 0.015 (0-0.045) ng/ml Total Protein 7.1 (6.4-8.2) gm/dl Albumin 2.3 L (3.4-5.0) gm/dl Globulin 4.8 H (2.5-4.0) gm/dl Albumin/Globulin Ratio 0.5 L (0.9-2) Lipase (73-393) U/L Urine Color Urine Appearance (Clear) Urine pH (4.5-7.5) Ur Specific [place] (1.000-1.030) Urine Protein (Negative) Urine Glucose (UA) (Negative) Urine Ketones (Negative) Urine Blood (Negative) Urine Nitrite (Negative) Urine Bilirubin (Negative) Urine Urobilinogen (Negative) Ur Leukocyte Esterase (Negative) Urine WBC (Auto) (0-5) /hpf Urine RBC (Auto) (0-4) /hpf U Hyaline Cast (Auto) (0-5) /lpf U Epithel Cells (Auto) (0-5) /lpf Urine Bacteria (Auto) (Negative) Urine Yeast 04/21/20 04/21/20 04/21/20 Range/Units 11:53 11:53 12:20 WBC (4.8-10.8) K/uL RBC (4.7-6.1) M/uL Hgb (14.0-18.0) g/dL Hct (42-52) % MCV (80-100) fL MCH (25-34) pg MCHC (32-36) g/dL RDW Std Deviation (36.4-46.3) fL RDW Coeff of Scottie (11.5-14.5) % Plt Count (130-400) K/uL MPV (7.4-10.4) fL Immature Gran % (Auto) % Neut % (Auto) % Lymph % (Auto) % Hardeman % (Auto) % Eos % (Auto) % Baso % (Auto) % Neut # (Auto) (1.4-6.5) K/uL Lymph # (Auto) (1.2-3.4) K/uL Hardeman # (Auto) (0.11-0.59) K/uL Eos # (Auto) (0-0.5) K/uL Baso # (Auto) (0-0.2) K/uL Immature Gran # (Auto) (0.00-0.02) K/uL PT (9.0-12.0) Seconds INR (0.9-1.1) APTT (21.0-31.0) Seconds PTT Ratio Sodium (136-145) mmol/L Potassium (3.5-5.1) mmol/L Chloride (98-107) mmol/L Carbon Dioxide (21-32) mmol/L Anion Gap (3-11) BUN (7-18) mg/dl Creatinine (0.6-1.4) mg/dl Est Cr Clr Drug Dosing ml/min Est GFR ( Amer) Est GFR (Non-Af Amer) BUN/Creatinine Ratio (10-20) Glucose (70-99) mg/dl Lactate 2.0 (0.4-2.0) mmol/L Calcium (8.5-10.1) mg/dl Magnesium (1.8-2.4) mg/dl Total Bilirubin (0.2-1) mg/dl AST (15-37) U/L ALT (12-78) U/L Alkaline Phosphatase (45-117) U/L Troponin I (0-0.045) ng/ml Total Protein (6.4-8.2) gm/dl Albumin (3.4-5.0) gm/dl Globulin (2.5-4.0) gm/dl Albumin/Globulin Ratio (0.9-2) Lipase 1139 H (73-393) U/L Urine Color Dark Yellow Urine Appearance Turbid A (Clear) Urine pH 5.5 (4.5-7.5) Ur Specific [place] 1.022 (1.000-1.030) Urine Protein 3+ H (Negative) Urine Glucose (UA) Negative (Negative) Urine Ketones Trace H (Negative) Urine Blood 3+ H (Negative) Urine Nitrite Negative (Negative) Urine Bilirubin Negative (Negative) Urine Urobilinogen Negative (Negative) Ur Leukocyte Esterase 3+ H (Negative) Urine WBC (Auto) >30 H (0-5) /hpf Urine RBC (Auto) >30 H (0-4) /hpf U Hyaline Cast (Auto) 1-5 (0-5) /lpf U Epithel Cells (Auto) >30 H (0-5) /lpf Urine Bacteria (Auto) 2+ H (Negative) Urine Yeast Not Reportable Imaging Data Radiologist's Impression: XR chest 1V portable HISTORY: SEPSIS COMPARISON: Chest 11/26/2019. FINDINGS: No pneumothorax. No pleural effusions. The heart is normal in size. Left-sided dual-chamber pacemaker. Surgical clips within the right axilla. The lungs are clear. No evidence for pulmonary edema. Old, healed left-sided rib fractures. IMPRESSION: No acute process. CT scan of the abdomen and pelvis: IMPRESSION: 1. Mild inflammatory change surrounding the pancreas consistent with acute pancreatitis. 2. Significant increase in size in the right mid abdominal bulky lymphadenopathy/mass as described above. This obscures/displaces the pancreatic head and could result in partial obstruction of the main pancreatic duct. This may account for the patient's acute pancreatitis. 3. Significant increase in size in the bladder mass. There is associated mild bladder wall thickening and surrounding inflammatory change. This could be related to the tumor or a cystitis. 4. Slight progression of the left-sided moderate hydroureteronephrosis likely secondary to the increase in the size of the bladder mass. The right renal collecting system remains decompressed secondary to the percutaneous nephrostomy tube. 5. Cholelithiasis. 6. Autosomal dominant polycystic kidney disease. 7. Additional findings as described above. ECG Data Attestation: I personally reviewed and interpreted this ECG as follows: Indication: + weakness Rate (beats per minute): 117 Rhythm: + normal sinus ECG Intervals/blocks: + Left bundle branch block ECG Findings: no PVCs Comparison ECG Date: from (November 26, 2019) Change: no significant change Blood Pressure Blood Pressure Findings: Low blood pressure MDM Narrative This is a 75-year-old male who presents to the ED with a chief complaint of not feeling well. He includes lightheadedness, shortness of breath, nausea, chills and sweats, poor appetite and weakness as his symptoms. He has a history of adrenal insufficiency as well as sepsis in the past. His symptoms started yest erday. His physical exam reveals diaphoresis and hypotension. CBC is unremarkable. Hemoglobin is 10.5. BUN is 39 and creatinine is 3.97. This is slightly worse than baseline creatinine. Troponin is negative. Urine shows possible infection. Chest x-ray did not show acute process. A CT scan of the abdomen pelvis was performed. This reveals findings suggesting acute pancreatitis. Other details listed above. The patient's urine appears to be infected. His kidney function is acutely worse than his baseline. Lipase is elevated. He also on exam appears to have a cellulitis associated with some bedsores. His BUN is 39 and creatinine is 3.97. Troponin is negative. EKG showed a sinus tach at a rate of 117 with a left bundle branch block. This is similar to an EKG dated November 252019. The patient was empirically treated with IV cefepime. He was given 3 L of normal saline IV during his ED stay. He was also given stress dose steroids with hydrocortisone due to his adrenal insu fficiency/adrenalectomy history. He was given IV Zofran for his nausea. The patient will be seen by the hospitalist for further inpatient evaluation and care. Impression & Plan Acute hypotension, Acute on chronic kidney failure, Acute UTI, Acute pancreatitis, Cellulitis of perineum Discharge Plan Visit Data Chief Complaint: Illness Stated Complaint: DIZZY,UPSET STOMACH,BED SORES,CA PT ED Provider: Luis Manuel Gutierrez Discharge Problem: Acute hypotension, Acute on chronic kidney failure, Acute UTI, Acute pancreatitis, Cellulitis of perineum Patient Disposition: Being Evaluated by Hospitalist Forms Stand Alone Forms: [facility] Prescriptions Prescriptions: No Action ondansetron HCl 4 mg tablet 4 mg PO Q8H PRN (Reason: Nausea) RF: 0 docusate sodium [Colace] 100 mg Capsule 100 mg PO BID RF: 0 cholecalciferol (vitamin D3) [Vitamin D3] 1,000 unit Capsule 1,000 unit PO QAM RF: 0 acetaminophen [Tylenol Extra Strength] 500 mg Tablet 500 mg PO Q6H PRN (Reason: Pain) RF: 0 methylprednisolone sodium succ 125 mg Recon Soln 125 mg IM DIRECTED PRN (Reason: EMERGENCY CASE) RF: 0 amiodarone 200 mg tablet 200 mg PO QAM RF: 0 sennosides-docusate sodium [Senexon-S] 8.6-50 mg tablet 2 tab PO BID RF: 0 fentanyl 12 mcg/hr patch 72 hour 12 mcg transdermal Q72H RF: 0 hydrocortisone 10 mg tablet 10 mg PO DAILY@1200,1500 RF: 0 hydrocortisone 10 mg tablet 20 mg PO DAILY@0500 RF: 0 Lantus Solostar U-100 Insulin 100 unit/mL (3 mL) insulin pen 15 unit SC BID RF: 0 lorazepam 1 mg tablet 1 mg PO DAILY PRN (Reason: Anxiety) RF: 0 calcitriol 0.5 mcg capsule 0.5 mcg PO HS RF: 0 torsemide 20 mg tablet 20 mg PO MOWEFR@0900 Qty: 30 RF: 1 prochlorperazine maleate 5 mg tablet 5 mg PO Q6H PRN (Reason: Nausea) RF: 0 oxycodone-acetaminophen 5-325 mg tablet 1 tab PO Q8H PRN (Reason: Pain) RF: 0 Referrals Referrals: Prasad Mcguire DO [Primary Care Provider] - Discharge Problem: Acute on chronic kidney failure Qualifiers: Acute renal failure type: unspecified Acute pancreatitis Qualifiers: Pancreatitis type: unspecified pancreatitis type Acute pancreatitis complication: unspecified Qualified Code(s): K85.90 - Acute pancreatitis without necrosis or infection, unspecified
[2020-04-21 12:05] LABS: Basophils # (auto) 0.02 K/uL (0-0.2); Basophils % (auto) 0.2 %; Eosinophils # (auto) 0.08 K/uL (0-0.5); Eosinophils % (auto) 0.9 %; Hematocrit (blood only) 34.7 % (42-52); Hemoglobin 10.5 g/dL (14.0-18.0); Immature Granulocytes # (auto) 0.03 K/uL (0.00-0.02); Immature Granulocytes % (auto) 0.3 %; Lymphocytes # (auto) 1.18 K/uL (1.2-3.4); Lymphocytes % (auto) 13.4 %; Mean Corpuscular Hemoglobin 24.6 pg (25-34); Mean Corpuscular Hgb Conc 30.3 g/dL (32-36); Mean Corpuscular Volume 81.5 fL (80-100); Monocytes % (auto) 9.1 %; Neutrophils # (auto) 6.67 K/uL (1.4-6.5); Neutrophils % (auto) 76.1 %; Platelet Count 292 K/uL (130-400); RDW Standard Deviation 51.1 fL (36.4-46.3); Red Blood Count 4.26 M/uL (4.7-6.1); White Blood Count 8.78 K/uL (4.8-10.8)
[2020-04-21 12:16] LABS: INR 1.1 (0.9-1.1); Partial Thromboplastin Ratio 1.1; Partial Thromboplastin Time 31.3 Seconds (21.0-31.0)
[2020-04-21 12:28] LABS: Alanine Aminotransferase 13 U/L (12-78); Albumin Level 2.3 gm/dl (3.4-5.0); Aspartate Aminotransferase 23 U/L (15-37); BUN Creatinine Ratio 9.9 (10-20); Blood Urea Nitrogen 39 mg/dl (7-18); Calcium 10.2 mg/dl (8.5-10.1); Carbon Dioxide 24 mmol/L (21-32); Chloride 102 mmol/L (98-107); Creatinine Clr Calc Pharmacy 20.7 ml/min; Est GFR (African American) 16.3; Glucose 81 mg/dl (70-99); Magnesium 1.6 mg/dl (1.8-2.4); Potassium 4.2 mmol/L (3.5-5.1); Sodium 136 mmol/L (136-145)
[2020-04-21 12:33] LABS: Albumin Globulin Ratio 0.5 (0.9-2); Alkaline Phosphatase 99 U/L (45-117); Bilirubin,Total 0.7 mg/dl (0.2-1); Globulin 4.8 gm/dl (2.5-4.0); Total Protein 7.1 gm/dl (6.4-8.2); Troponin I < 0.015 ng/ml (0-0.045)
[2020-04-21 12:34] LABS: Appearance Urine Turbid (Clear); Bacteria Urine Automated 2+ (Negative); Bilirubin Urine Negative (Negative); Blood Urine 3+ (Negative); Color Urine Dark Yellow; Epithelial Cell Urine Auto >30 /lpf (0-5); Glucose Urine UA Negative (Negative); Ketones Urine Trace (Negative); Leukocyte Esterase Urine 3+ (Negative); Nitrite Urine Negative (Negative); Protein Urine 3+ (Negative); Specific Gravity Urine 1.022 (1.000-1.030); Urobilinogen Urine Negative (Negative); WBC Urine Automated >30 /hpf (0-5); pH Urine 5.5 (4.5-7.5)
--- NOTE | 2020-04-21 12:45 | XRay Report ---
XR chest 1V portable HISTORY: SEPSIS COMPARISON: Chest 11/26/2019. FINDINGS: No pneumothorax. No pleural effusions. The heart is normal in size. Left-sided dual-chamber pacemaker. Surgical clips within the right axilla. The lungs are clear. No evidence for pulmonary ed dejon. Old, healed left-sided rib fractures. IMPRESSION: No acute process. ACT 112: Negative or not required by law. Electronically signed by: Mingo Constantino M.D. 04/21/2020 12:44 PM
[2020-04-21 12:59] LABS: RBC Urine Automated >30 /hpf (0-4)
--- NOTE | 2020-04-21 13:27 | CT Scan Report ---
ABDOMEN AND PELVIS CT WITHOUT CONTRAST CT DOSE: 1449.94 mGy.cm HISTORY: hypotension, nausea TECHNIQUE: Multiaxial CT images of the abdomen and pelvis were performed without contrast. A dose lo wering technique was utilized adhering to the principles of ALARA. COMPARISON STUDY: Abdomen and pelvis CT 11/26/2019. FINDINGS: Mild dependent changes seen within the lung bases posteriorly. Pacemaker wires are noted. N o pneumoperitoneum. No pneumatosis. No acute fractures within the visualized osseous structures. No h epatic or splenic masses on this noncontrast study. The gallbladder remains mildly distended and cont ains multiple punctate stones. No change in the 2.2 cm right suprarenal/adrenal nodule. Mild peripanc reatic inflammatory change is new from the prior study. This likely represent acute pancreatitis. Sig nificant increase in size in the bulky necrotic mass within the right midabdomen. This obscures/displ aces the pancreatic head and IVC. This also results in anterior displacement of the duodenum. This co uld result in partial obstruction of the distal main pancreatic duct. The main pancreatic duct at the neck of the pancreas measures 5 mm in diameter. Therefore, this may account for the acute pancreatit is. This bulky lymphadenopathy/mass measures approximately 9.8 x 7.8 cm. There is also been significa nt increase in size in the intraluminal bladder mass with focal areas of increased density suggesting hemorrhage. The bladder is distended up to 15 cm. There is mild diffuse bladder wall thickening and surrounding inflammatory change most pronounced at the bladder dome. This bladder mass abuts and disp laces the mid sigmoid colon. The right renal collecting system remains decompressed by a percutaneous nephrostomy tube which appears in good position. Punctate focus of gas within the right renal collec ting system may be due to the percutaneous nephrostomy tube. There is moderate left hydroureteronephr osis which has slightly progressed. 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 IMPRESSION: 1. Mild inflammatory change surrounding the pancreas consistent with acute pancreatitis. 2. Significant increase in size in the right mid abdominal bulky lymphadenopathy/mass as described ab ove. This obscures/displaces the pancreatic head and could result in partial obstruction of the main pancreatic duct. This may account for the patient's acute pancreatitis. 3. Significant increase in size in the bladder mass. There is associated mild bladder wall thickening and surrounding inflammatory change. This could be related to the tumor or a cystitis. 4. Slight progression of the left-sided moderate hydroureteronephrosis likely secondary to the increa se in the size of the bladder mass. The right renal collecting system remains decompressed secondary to the percutaneous nephrostomy tube. 5. Cholelithiasis. 6. Autosomal dominant polycystic kidney disease. 7. Additional findings as described above. ACT 112: Negative or not required by law. Electronically signed by: Mingo Constantino M.D. 04/21/2020 1:26 PM
[2020-04-21] MEDS ORDERED: SODIUM CHLORIDE 0.9% 1000ML 1,000 ML IV ONE (13:58)
--- NOTE | 2020-04-21 15:16 | History & Physical Report ---
Date of Service April 21, 2020 Assessment & Plan (1) Acute pancreatitis: (2) Acute hypotension: Patient presented to the ED with weakness, nausea, chills/sweats, decreased appetite, SOB, and lightheadedness. Found to be hypotensive and have acute pancreatitis on CT of Abd/Pelvis. Hypotension improved with fluids in the ED. CT of the abdomen showed that he has bulky abdominal lymphadenopathy that is displacing the head of the pancreas and could result in partial obstruction of the pancreatic duct. Will consult Gastroenterology for further guidance. Continue IV fluids to tx pancreatitis. Clear liquid diet for now for bowel rest Zofran PRN nausea Trend Lipase to monitor for improvement Admit to Med/Surg with Tele for monitoring Patient signed a POLST form as an outpatient that he did not want CPR/mechanical ventilation in case of emergency. Discussed this with patient again- agreed on DNR/DNI (3) Sacral decubitus ulcer: (4) Cellulitis of perineum: Patient with cellulitis and chronic sacral decubitus ulcerations. Concern for infection in this area as well. Lactic acid and WBC count within norm. IV Zosyn ordered. Wound care Qshift Wound care nurse consult (5) Acute on chronic kidney failure: (6) Chronic kidney disease, stage 4 (severe): (7) Hypoalbuminemia: (8) Hypomagnesemia: (9) Hypercalcemia: Patient has acute on chronic renal failure with Creatinine of 3.97 on admission. Hypomagnesemia, hypercalcemia, and hypoalbuminemia also noted on labs. Continue IV fluids as above Monitor renal function closely 2g IV magnesium with PO Magnesium oxide 400 mg daily IV fluids will also help lower calcium levels Check Phosphorus Recheck labs in AM Nephrology consultation (10) Diabetes mellitus, type II: Continue Lantus but at reduced dose for now with clear liquid diet. At home dose is typically 15 units BID. Will decrease to 10 BID for now. Sliding scale ACHS glucose checks (11) Metastatic melanoma: (12) Nephrostomy status: (13) Bladder mass: Patient with history of metastatic melanoma with bladder mass, splenic lesions, and bulky abdominal adenopathy Patient currently treated with steroids. Continue these while inpatient. May need to consider consultation with Oncology, Surgery, and/or palliative care pending improvement. Monitor I&Os Per outpatient record, patient has been resistant thus far to hospice services. 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 Currently rate controlled. Patient previously taken OFF of anticoagulation secondary to hematuria. B/L LE edema, but renal function is worse. He was also hypotensive on admission. Continue home dose of torsemide 20 mg MWF, but consider holding if BP continues to be low or increasing if LE edema worsens Monitor fluid status closely (17) Sleep apnea: Continue CPAP overnight (18) Hx of total adrenalectomy: (19) Adrenal insufficiency: History of total adrenalectomy. Continue home steroids. Consider stress dosing if needed- not needed at this time. (20) DVT prophylaxis: Heparin 5,000 units Q12h Monitor for any signs of bleeding/hematuria. If signs of bleeding occur, consider discontinuation and SCDs only with encouraging ambulation History of Present Illness Chief Complaint: Acute pancreatitis Primary Care Provider: Prasad Mcguire DO Patient is a 75 yo male with an extensive past medical history including Type II DM with CKD stage 4 and insulin dependence, hyperparathyroidism, polyneuropathy secondary to DM, CHF with hypertensive heart disease, LILLIANA on CPAP, adrenal insufficiency with history of total adrenalectomy, paroxysmal Afib, tachy-oscar syndrome, HTN, Atherosclerosis, polycystic kidneys, obstructive uropathy secondary to bladder mass with history of nephrostomy tube placement, chronic anemia, & metastatic melanoma who presented to the ED overall not feeling well. The patient has history of multiple admissions to the hospital for various reasons including septic shock secondary to ESBL E. Coli UTI, obstructive uropathy, etc. Yesterday, the patient states that he started to have sweats/chills, SOB, lightheadedness, nausea, decrease in appetite, and felt like he had to move his bowels but couldn't. This continued this morning and worsened, so he called EMS and was brought to the ED for evaluation. He does also note that he has chronic bed sores on and off that have been worse recently. He has [facility] at home services, and there are nurses that help him change dressings and change positions at home. The patient is very tired during examination, so it is diffic ult to get further details from the patient while speaking with him. Since admission, the patient had a CT of the abd/pelvis which showed signs of acute pancreatitis. Lipase was elevated to 1139. CBC was unrevealing other than chronic anemia. Renal function was slightly worse than baseline. Previously baseline creatinine in November 2019 was around 3.1. Creatinine today was 3.97. Magnesium noted to be low at 1.6. Urine and blood cultures pending. He also has hypoalbuminemia and hypercalcemia on initial lab evaluation. Allergies Allergy/AdvReac Type Severity Reaction Status Date / Time perflutren AdvReac Intermediate GI SYMPTOMS Verified 04/21/20 13:29 propylene glycol AdvReac Intermediate GI SYMPTOMS Verified 04/21/20 13:29 simvastatin AdvReac Intermediate JOINT AND Verified 04/21/20 13:29 MUSCLE PAIN Home Medications Home Medications Medication Instructions Recorded Confirmed Type cholecalciferol (vitamin D3) 1,000 unit PO QAM 04/20/18 04/21/20 History [Vitamin D3] ondansetron HCl 4 mg tablet 4 mg PO Q8H PRN tab 08/10/18 04/21/20 History acetaminophen [Tylenol Extra 500 mg PO Q6H PRN 05/22/19 04/21/20 History Strength] methylprednisolone sodium succ 125 mg IM DIRECTED PRN 05/22/19 04/21/20 History Lantus Solostar U-100 Insulin 15 unit SC BID 07/02/19 04/21/20 History hydrocortisone 10 mg PO DAILY@1200,1500 07/02/19 04/21/20 History hydrocortisone 20 mg PO DAILY@0500 07/02/19 04/21/20 History lorazepam 1 mg PO DAILY PRN 07/29/19 04/21/20 History amiodarone 200 mg PO QAM 08/17/19 04/21/20 History calcitriol 0.5 mcg PO HS 09/09/19 04/21/20 History torsemide 20 mg PO MOWEFR@0900 #30 tab 10/02/19 04/21/20 Rx oxycodone-acetaminophen 1 tab PO Q8H PRN 11/26/19 04/21/20 History prochlorperazine maleate 5 mg PO Q6H PRN 11/26/19 04/21/20 History fludrocortisone 0.1 mg PO DAILY 04/21/20 04/21/20 History sennosides-docusate sodium 2 tab PO BID 04/21/20 04/21/20 History [Senexon-S] tamsulosin 0.4 mg PO BID 04/21/20 04/21/20 History Past Med/Surg History Medical History (Updated 04/21/20 @ 15:59 by Maria Elena Ibarra PA-C) Adrenal insufficiency S/P LEFT ADRENALECTOMY- ON CHRONIC HYDROCORTISONE Anxiety Cardiomyopathy Chronic kidney disease, stage 4 (severe) Degenerative disc disease Diabetes mellitus, type II Dyslipidemia History of immunotherapy Keytruda x 2 Cycles (had to stop after 2nd cycle) Current Opdivo q 2 weeks (currently on hold) - started 05/2017 - 04/2018 History of transfusion of packed red blood cells Hypertension Metastatic malignant melanoma Morbid obesity Septic shock Sleep apnea CPAP HS Urinary tract infection due to ESBL Klebsiella Surgical History (Updated 04/21/20 @ 15:32 by Maria Elena Ibarra PA-C) History of cystoscopy History of esophagogastroduodenoscopy (EGD) History of tooth extraction Hx of total adrenalectomy LEFT SIDE-- HX B/L ADRENAL MASSES; UNDERWENT LAP LEFT ADRENAL MASS EXCISION 04/14/17; PATHOLOGY METASTATIC MALIGNANT MELANOMA WITH VASCULAR INVASION Nephrostomy status Family History Father No problems noted. Mother Colon cancer, Onset Age: 85 Chemo and Resection - Alive and well now Sister Breast cancer, Onset Age: 55 Had Radiation - Alive and well now Sister No problems noted. Sister No problems noted. Sister No problems noted. Sister No problems noted. Brother No problems noted. Son No problems noted. Son No problems noted. Social History Smoking Status: Never smoker Second Hand Exposure: No; Do You Dip or Chew Tobacco: Yes (1 can every 7 to 8 days); Tobacco Cessation Education Requested by Patient: No Hx Alcohol Use: No Hx Substance Use: No Preferred Language: Mongolian Communication Ability: Effective Visual Impairment: Limited Hearing Ability: Hard of Hearing Independent Crop Consultant Required: No Beliefs That Will Affect Care: None marital status: Life Partner Current Living Situation: Alone current occupational status: retired current occupation: Retired - [employer] Other Information That Helps Us Care for You: No Feels Safe at Home: Yes Safety Concerns: Feels Safe At This Time caffeine: Yes (2 cups of coffee/day ) during the past year weight has: remained stable Assistive Devices: Cane, CPAP, Denture - Upper, Denture - Lower and Glasses Review of Systems Review of Systems: All systems reviewed & are unremarkable except as noted in HPI & below Physical Exam Constitutional: + ill appearing and + morbidly obese; no acute distress Eyes: PERRL, conjunctivae normal, anicteric sclerae ENMT: external ear and nose normal, oropharynx normal Neck: trachea midline, no thyromegaly Respiratory: normal respiratory effort, lungs clear to auscultation Cardiovascular: Rate/Rhythm: regular rate and regular rhythm Heart Sounds: normal S1 and normal S2; no murmur and no cardiac rub Extremities: + edema (B/L LE Edema. 1-2+ pitting edema B/L) Gastrointestinal (Abdomen): Inspection/Auscultation: + abdomen distended and normal bowel sounds Percussion/Palpation: + abdomen tender (Mild generalized) and abdomen soft; abdomen not rigid and no abdominal mass Musculoskeletal: Head/Neck/Chest: normocephalic, head atraumatic and neck supple Psychiatric: Orientation: alert Speech: normal rate/rhythm/volume of speech Affect: euthymic affect Results & Data Results & Data ([facility]) Vital Signs (Past 12 Hours) Vital Signs Temp Pulse Pulse Resp BP BP Pulse Ox 04/21/20 14:44 78 18 104/55 L 100 04/21/20 13:54 89 18 102/56 L 100 04/21/20 13:19 89 97/57 L 100 04/21/20 12:46 95 H 23 111/42 L 100 04/21/20 12:24 84/44 L 100 04/21/20 12:22 92 04/21/20 12:17 88/48 L 100 04/21/20 12:15 104 H 70/44 L 100 04/21/20 12:08 78/46 L 04/21/20 11:53 106 H 78/51 L 93 04/21/20 11:31 36.7 C 125 H 20 82/55 L 97 Laboratory Results Laboratory Results - last 24 hr 04/21/20 04/21/20 04/21/20 11:53 11:53 11:53 WBC 8.78 RBC 4.26 L Hgb 10.5 L Hct 34.7 L MCV 81.5 MCH 24.6 L MCHC 30.3 L RDW Std Deviation 51.1 H RDW Coeff of Scottie 17.0 H Plt Count 292 MPV 9.0 Immature Gran % (Auto) 0.3 Neut % (Auto) 76.1 Lymph % (Auto) 13.4 [place] % (Auto) 9.1 Eos % (Auto) 0.9 Baso % (Auto) 0.2 Neut # (Auto) 6.67 H Lymph # (Auto) 1.18 L [place] # (Auto) 0.80 H Eos # (Auto) 0.08 Baso # (Auto) 0.02 Immature Gran # (Auto) 0.03 H PT 12.0 INR 1.1 APTT 31.3 H PTT Ratio 1.1 Sodium 136 Potassium 4.2 Chloride 102 Carbon Dioxide 24 Anion Gap 10.0 BUN 39 H Creatinine 3.97 H Est Cr Clr Drug Dosing 20.7 Est GFR ( Amer) 16.3 Est GFR (Non-Af Amer) 14.0 BUN/Creatinine Ratio 9.9 L Glucose 81 Lactate Calcium 10.2 H Magnesium 1.6 L Total Bilirubin 0.7 AST 23 ALT 13 Alkaline Phosphatase 99 Troponin I < 0.015 Total Protein 7.1 Albumin 2.3 L Globulin 4.8 H Albumin/Globulin Ratio 0.5 L Lipase Urine Color Urine Appearance Urine pH Ur Specific [place] Urine Protein Urine Glucose (UA) Urine Ketones Urine Blood Urine Nitrite Urine Bilirubin Urine Urobilinogen Ur Leukocyte Esterase Urine WBC (Auto) Urine RBC (Auto) U Hyaline Cast (Auto) U Epithel Cells (Auto) Urine Bacteria (Auto) Urine Yeast 04/21/20 04/21/20 04/21/20 11:53 11:53 12:20 WBC RBC Hgb Hct MCV MCH MCHC RDW Std Deviation RDW Coeff of Scottie Plt Count MPV Immature Gran % (Auto) Neut % (Auto) Lymph % (Auto) [place] % (Auto) Eos % (Auto) Baso % (Auto) Neut # (Auto) Lymph # (Auto) [place] # (Auto) Eos # (Auto) Baso # (Auto) Immature Gran # (Auto) PT INR APTT PTT Ratio Sodium Potassium Chloride Carbon Dioxide Anion Gap BUN Creatinine Est Cr Clr Drug Dosing Est GFR ( Amer) Est GFR (Non-Af Amer) BUN/Creatinine Ratio Glucose Lactate 2.0 Calcium Magnesium Total Bilirubin AST ALT Alkaline Phosphatase Troponin I Total Protein Albumin Globulin Albumin/Globulin Ratio Lipase 1139 H Urine Color Dark Yellow Urine Appearance Turbid A Urine pH 5.5 Ur Specific [place] 1.022 Urine Protein 3+ H Urine Glucose (UA) Negative Urine Ketones Trace H Urine Blood 3+ H Urine Nitrite Negative Urine Bilirubin Negative Urine Urobilinogen Negative Ur Leukocyte Esterase 3+ H Urine WBC (Auto) >30 H Urine RBC (Auto) >30 H U Hyaline Cast (Auto) 1-5 U Epithel Cells (Auto) >30 H Urine Bacteria (Auto) 2+ H Urine Yeast Not Reportable Diagnostic Findings CT ABD/PELVIS: IMPRESSION: 1. Mild inflammatory change surrounding the pancreas consistent with acute pancreatitis. 2. Significant increase in size in the right mid abdominal bulky lympha denopathy/mass as described above. This obscures/displaces the pancreatic head and could result in partial obstruction of the main pancreatic duct. This may account for the patient's acute pancreatitis. 3. Significant increase in size in the bladder mass. There is associated mild bladder wall thickening and surrounding inflammatory change. This could be related to the tumor or a cystitis. 4. Slight progression of the left-sided moderate hydroureteronephrosis likely secondary to the increase in the size of the bladder mass. The right renal collecting system remains decompressed secondary to the percutaneous nephrostomy tube. 5. Cholelithiasis. 6. Autosomal dominant polycystic kidney disease. 7. Additional findings as described above. CXR: IMPRESSION: No acute process. Code Status & VTE Plan VTE Prophylaxis Plan VTE Prophylaxis will be ordered: Yes Supervising Physician Co-Signing Physician Notes I, Dr. Binh Babcock, have seen and examined the patient Zia Martinez and also discussed the plans with physician histology assistant On Physical Exam General: no acute distress Heart: regular rate Lung: no wheezing Abdomen: soft, positive bowel sounds, no guarding Neuro: no facial droop, speaks in full sentences Assessment and Plan -This is a patient with multiple medical problems and main concerns are fevers at home, leukocytosis are normal, but because of patients cancer history and chronic use of steroids, he is at risk of immunosuppression and need to consider possible underlying infectious process, empirically start IV Zosyn for now -ED work up pertinent for elevated lipase of [address] imaging of pancreatitis with possible involvement of malignancy related to the inflammations Mild inflammatory change surrounding the pancreas consistent with acute pancreatitis. Significant increase in size in the right mid abdominal bulky lymphadenopathy/mass as described above. This obscures/displaces the pancreatic head and could result in partial obstruction of the main pancreatic duct. This may account for the patient's acute pancreatitis. Give IV lactated ringers, minimize oral intake to clear liquid diet for now, and trend the amylase, if patients pancreatic enzymes does not improve signifi cantly then consideration may need to be given for further evaluation with [facility] ([facility]), general surgery, or palliative care. 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 The IV fluids for the pancreatitis can also help with reducing the hypercalcemia levels. Metal Washing Machine Operator consult for nutritional assessment for the low albumin levels -continue home dose diuretic for now and adjust as needed based on fluid status, electrolytes, pancreatitis -nephrology consultation given the advance stage chronic kidney disease -adrenal insufficiency, continue patients steroids and monitor the blood pressure closely -continue amiodarone for paroxysmal atrial fibrillation. Patient not on systemic anticoagulation at home because of history of hematuria -based on renal function, the inpatient DVT prophylaxis medication can be heparin 5000 units subcutaneous q12 hours -PT/OT evaluations, case management consult -agree with other assessment and plans as documented by physician histology assistant -DNR/DNI as per discussion with patient -My colleague Dr. Bales will be the hospitalist attending starting on 04/22/2020 (1) CHF (congestive heart failure) Heart failure chronicity: unspecified Heart failure type: unspecified Qu alified Code(s): I50.9 - Heart failure, unspecified (2) Acute on chronic kidney failure Acute renal failure type: unspecified (3) Acute pancreatitis Acute pancreatitis complication: unspecified Pancreatitis type: unspecified pancreatitis type Qualified Code(s): K85.90 - Acute pancreatitis without necrosis or infection, unspecified
[2020-04-21] MEDS ORDERED: MAGNESIUM SULFATE 1GM / D5W BAG IV ONE (15:23)
[2020-04-21] MEDS ORDERED: GLUCOSE 10 TABS/TUBE PO PRN (16:55)
[2020-04-21] MEDS ORDERED: GLUCOSE 40% GEL 15 GM TUBE PO PRN (16:55)
[2020-04-21] MEDS ORDERED: DC ALL PREVIOUSLY ORDERED DIABETES MEDS ONE (16:55)
[2020-04-21] MEDS ORDERED: POLYETHYLENE (MIRALAX) 17 GM PACK PO PRN (16:55)
[2020-04-21] MEDS ORDERED: CARBOHYDRATES FOR HYPOGLYCEMIA PO PRN (16:55)
[2020-04-21] MEDS ORDERED: ONDANSETRON 4 MG OD TAB PO PRN (16:55)
[2020-04-21] MEDS ORDERED: ACETAMINOPHEN 325 MG TAB PO PRN (16:55)
[2020-04-21] MEDS ORDERED: GLUCAGON FOR INJ 1 MG VIAL SQ PRN (16:55)
[2020-04-21] MEDS ORDERED: DEXTROSE 50% 50 ML SYRINGE IV PRN (16:55)
[2020-04-21] MEDS ORDERED: PIPERACILL/TAZOBAC CONSULT ACTIVE PRN (17:06)
[2020-04-21] MEDS: LACTATED RINGER'S 1,000 ML IV SCH (17:15)
--- NOTE | 2020-04-21 17:25 | Electrocardiogram Report ---
Test Reason : Blood Pressure : / mmHG Vent. Rate : 117 BPM Atrial Rate : 117 BPM P-R Int : 156 ms QRS Dur : 130 ms QT Int : 348 ms P-R-T Axes : 055 -06 126 degrees QTc Int : 485 ms Sinus tachycardia Left bundle branch block Abnormal ECG When compared with ECG of 28-NOV-2019 08:36, Sinus rhythm has replaced Electronic atrial pacemaker Vent. rate has increased BY 49 BPM Left bundle branch block is now Present Confirmed by Gil Lafleur ([id number]) on 04/21/2020 5:24:59 PM Referred By: REFERRED SELF Confirmed By:Gal Lafleur
[2020-04-21] MEDS ORDERED: MAGNESIUM SULFATE / D5W 1 GM/100 ML BAG IV SCH (17:30)
[2020-04-21] MEDS: INSULIN ASPART 100 UNITS/ML 3 ML PEN SC SCH ×2 (17:52→21:33)
[2020-04-21 17:58] LABS: Phosphorus 2.4 mg/dl (2.5-4.9)
[2020-04-21] MEDS ORDERED: PIPERACILLIN/TAZOBACTAM 4.5 GM in DEXTROSE 5% 100 ML IV ONE (18:00)
[2020-04-21] MEDS ORDERED: SODIUM PHOSPHATE 3 MMOL/1 ML INFUSION IV STA (18:37)
[2020-04-21] MEDS ORDERED: SODIUM PHOSPHATE 21 MMOL in SODIUM CHLORIDE 0.9% 500 ML IV ONE (19:00)
[2020-04-21 19:35] LABS: Albumin Level 1.8 gm/dl (3.4-5.0); BUN Creatinine Ratio 10.8 (10-20); Calcium 8.4 mg/dl (8.5-10.1); Creatinine Clr Calc Pharmacy 22.8 ml/min; Est GFR (African American) 18.3; Est GFR (Non-African American) 15.8
[2020-04-21 19:37] LABS: Albumin Globulin Ratio 0.5 (0.9-2); Bilirubin,Total 0.4 mg/dl (0.2-1); Globulin 3.8 gm/dl (2.5-4.0); Total Protein 5.6 gm/dl (6.4-8.2)
[2020-04-21] MEDS: INSULIN GLARGINE SOLOSTAR 100 UNITS/ML 3 ML PEN SC SCH (21:32)
[2020-04-21] MEDS: TAMSULOSIN HCL 0.4 MG CAP PO SCH (21:32)
[2020-04-21] MEDS: CALCITRIOL 0.25 MCG CAPSULE PO SCH (21:32)
[2020-04-21] MEDS: DOCUSATE SODIUM/SENNA 50/8.6MG TAB PO SCH (21:32)
[2020-04-21] MEDS: HEPARIN SOD 5,000 UNIT/0.5 ML VIAL SQ SCH (21:33)
[2020-04-22] MEDS: LACTATED RINGER'S 1,000 ML IV SCH (01:44)
[2020-04-22] MEDS: PIPERACILLIN/TAZOBACTAM 4.5 GM in DEXTROSE 5% 100 ML IV SCH ×4 (01:44→23:25)
[2020-04-22] MEDS: HYDROCORTISONE 10 MG TAB PO SCH ×3 (05:01→15:36)
[2020-04-22 06:14] LABS: Hematocrit (blood only) 28.6 % (42-52); Hemoglobin 8.4 g/dL (14.0-18.0); Mean Corpuscular Hemoglobin 24.6 pg (25-34); Mean Corpuscular Hgb Conc 29.4 g/dL (32-36); Mean Corpuscular Volume 83.6 fL (80-100); Mean Platelet Volume 8.9 fL (7.4-10.4); Platelet Count 241 K/uL (130-400); RDW Coefficient of Variation 17.2 % (11.5-14.5); Red Blood Count 3.42 M/uL (4.7-6.1); White Blood Count 6.35 K/uL (4.8-10.8)
[2020-04-22 06:45] LABS: Albumin Level 1.7 gm/dl (3.4-5.0); BUN Creatinine Ratio 11.3 (10-20); Calcium 8.4 mg/dl (8.5-10.1); Creatinine Clr Calc Pharmacy 23.9 ml/min; Est GFR (African American) 19.3; Est GFR (Non-African American) 16.7; Magnesium 2.3 mg/dl (1.8-2.4); Potassium 4.9 mmol/L (3.5-5.1)
[2020-04-22 06:49] LABS: Albumin Globulin Ratio 0.5 (0.9-2); Bilirubin,Total 0.4 mg/dl (0.2-1); Globulin 3.6 gm/dl (2.5-4.0); Total Protein 5.3 gm/dl (6.4-8.2)
[2020-04-22] MEDS: TAMSULOSIN HCL 0.4 MG CAP PO SCH ×2 (09:20→21:47)
[2020-04-22] MEDS: CHOLECALCIFEROL 1,000 UNITS 25 MCG TAB PO SCH (09:20)
[2020-04-22] MEDS: DOCUSATE SODIUM/SENNA 50/8.6MG TAB PO SCH ×2 (09:20→21:47)
[2020-04-22] MEDS: FLUDROCORTISONE ACETATE 0.1 MG TAB PO SCH (09:21)
[2020-04-22] MEDS: HEPARIN SOD 5,000 UNIT/0.5 ML VIAL SQ SCH ×2 (09:21→21:47)
[2020-04-22] MEDS: MAGNESIUM OXIDE 400 MG TAB PO SCH (09:22)
[2020-04-22] MEDS: AMIODARONE 200 MG TAB PO SCH (09:22)
[2020-04-22] MEDS: INSULIN GLARGINE SOLOSTAR 100 UNITS/ML 3 ML PEN SC SCH ×2 (09:25→21:50)
[2020-04-22] MEDS: INSULIN ASPART 100 UNITS/ML 3 ML PEN SC SCH ×4 (09:26→21:48)
[2020-04-22] MEDS: SODIUM CHLORIDE 0.9% 1000ML 1,000 ML IV SCH ×2 (11:04→19:15)
[2020-04-22] MEDS: oxyCODONE/ACETAMINOPHEN 5mg/325mg TAB PO PRN ×2 (13:29→21:58)
--- NOTE | 2020-04-22 14:19 | Hospitalist Progress Note ---
Date of Service April 22, 2020 Assessment & Plan (1) Acute pancreatitis: He is a 75-year-old obese male with significant past medical history including metastatic melanoma and urinary bladder mass with right nephrostomy, splenic lesions and bulky abdominal adenopathy finished chemoradiation was admitted yesterday with nausea and not feeling well. His pancreatic enzymes were elevated on admission CT scan did show mild inflammatory changes around the pancreas consistent with acute pancreatitis with significant increase in size in the right mid abdominal bulky lymphadenopathy/mass which obscures/displaces the pancreatic head" resulting in acute pancreatitis He has been n.p.o. and getting intravenous fluid Clinically much better improvement of symptoms and improvement of lipase (2) Acute hypotension: Patient presented to the ED with weakness, nausea, chills/sweats, decreased appetite, SOB, and lightheadedness. Found to be hypotensive and have acute pancreatitis on CT of Abd/Pelvis. Hypotension improved with fluids in the ED. Continue IV fluids to tx pancreatitis. Clear liquid diet for now for bowel rest Zofran PRN nausea Trend Lipase to monitor for improvement Blood pressure remains around 100 systolic (3) Sacral decubitus ulcer: Wound care consult (4) Cellulitis of perineum: Patient with cellulitis and chronic sacral decubitus ulcerations. Concern for infection in this area as well. Lactic acid and WBC count within norm. IV Zosyn ordered. Wound care [facility] Wound care nurse consult (5) Acute on chronic kidney failure: He has acute on chronic kidney failure Has nephrostomy on the right side with a bladder mass Will try cautious amount of intravenous fluid Monitor BMP (6) Chronic kidney disease, stage 4 (severe): (7) Hypoalbuminemia: (8) Hypomagnesemia: (9) Hypercalcemia: Patient has acute on chronic renal failure with Creatinine of 3.97 on admission. Hypomagnesemia, hypercalcemia, and hypoalbuminemia also noted on labs. Continue IV fluids as above Monitor renal function closely 2g IV magnesium with PO Magnesium oxide 400 mg daily IV fluids will also help lower calcium levels Check Phosphorus Recheck labs in AM-Ms. slightly improved at 3.44 from 3.97 Nephrology consultation (10) Diabetes mellitus, type II: Continue Lantus but at reduced dose for now with clear liquid diet. At home dose is typically 15 units BID. Will decrease to 10 BID for now. Sliding scale ACHS glucose checks (11) Metastatic melanoma: Inflow abdominal bulky adenopathy as mentioned in CAT scan of the abdomen and pelvis Including bladder mass with history of nephrostomy on the right side No more chemo and radiation therapy Discussed with the patient and he is aware (12) Nephrostomy status: (13) Bladder mass: Patient with history of metastatic melanoma with bladder mass, splenic lesions, and bulky abdominal adenopathy Patient currently treated with steroids. Continue these while inpatient. May need to consider consultation with Oncology, Surgery, and/or palliative care pending improvement. Monitor I&Os Per outpatient record, patient has been resistant thus far to hospice services. 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 Currently rate controlled. Patient previously taken OFF of anticoagulation secondary to hematuria. B/L LE edema, but renal function is worse. He was also hypotensive on admission. Continue home dose of torsemide 20 mg MWF, but consider holding if BP continues to be low or increasing if LE edema worsens Monitor fluid status closely (17) Sleep apnea: Continue CPAP overnight (18) Hx of total adrenalectomy: (19) Adrenal insufficiency: History of total adrenalectomy. Continue home steroids. Consider stress dosing if needed- not needed at this time. (20) DVT prophylaxis: Heparin 5,000 units Q12h Monitor for any signs of bleeding/hematuria. If signs of bleeding occur, consider discontinuation and SCDs only with encouraging ambulation Admission and Anticipated Discharge Date Admission Date: April 21, 2020 Subjective 04/22/2020 The patient was seen and examined in medical floor He is a 75-year-old obese male with significant past medical history including metastatic melanoma and urinary bladder mass with right nephrostomy, splenic lesions and bulky abdominal adenopathy finished chemoradiation was admitted yesterday with nausea and not feeling well. Noted to have acute pancreatitis Has been getting intravenous fluid and n.p.o. except meds Clinically much better today Review of Systems Review of Systems: All systems reviewed and are unremarkable except as noted below Constitutional: + fatigue Gastrointestinal: + bloating and + nausea; no vomiting Musculoskeletal: Has pain in multiple joints Neurologic: Alert, awake and oriented x3 Physical Exam Physical Exam: Lying in bed comfortably Constitutional: well developed, well nourished, + ill appearing and + obese; no acute distress Eyes: PERRL, conjunctivae normal, anicteric sclerae ENMT: external ear and nose normal, oropharynx normal Neck: trachea midline, no thyromegaly Respiratory: normal respiratory effort; no respiratory distress Auscultation: lungs clear to auscultation bilaterally and + diminished lung sounds Cardiovascular: Rate/Rhythm: regular rate and regular rhythm Heart Sounds: no murmur Gastrointestinal (Abdomen): Inspection/Auscultation: + abdomen distended and normal bowel sounds Percussion/Palpation: + abdomen tender (Minimally tender epigastrium and lower quadrant) and abdomen soft Musculoskeletal: No acute arthritis involving any joint Neurologic: moves all extremities; no focal motor deficits Alert, awake and oriented x3 Genitourinary: Has right nephrostomy tube Lymphatic: no cervical or axillary lymphadenopathy Results & Data Results & Data ([facility]) Vital Signs (Past 12 Hours) Vital Signs Temp Pulse Resp BP Pulse Ox 04/22/20 06:59 36.4 C L 63 16 101/64 99 Laboratory Results Short CBC 04/22/20 Range/Units 04:59 WBC 6.35 (4.8-10.8) K/uL Hgb 8.4 L (14.0-18.0) g/dL Hct 28.6 L (42-52) % Plt Count 241 (130-400) K/uL BMP 04/21/20 04/22/20 18:46 04:59 Sodium 138 139 Potassium 5.0 D 4.9 Chloride 108 H 108 H Carbon Dioxide 22 25 BUN 39 H 39 H Creatinine 3.60 H D 3.44 H Glucose 135 H 75 Calcium 8.4 L D 8.4 L Liver Function 04/21/20 04/22/20 Range/Units 18:46 04:59 Total Bilirubin 0.4 0.4 (0.2-1) mg/dl AST 19 36 (15-37) U/L ALT 11 L 11 L (12-78) U/L Alkaline Phosphatase 84 73 (45-117) U/L Albumin 1.8 L 1.7 L (3.4-5.0) gm/dl Medications Administered Current Inpatient Medications Acetaminophen (Acetaminophen 325 Mg Tab) 650 mg PO Q4H PRN PRN Reason: pain/fever Stop: 05/21/20 16:54 Amiodarone HCl (Amiodarone 200 Mg Tab) 200 mg PO QAM RENZO Stop: 05/22/20 08:59 Last Admin: 04/22/20 09:22 Dose: 200 mg Documented by: Calcitriol (Calcitriol 0.25 Mcg Capsule) 0.5 mcg PO HS RENZO Stop: 05/21/20 20:59 Last Admin: 04/21/20 21:32 Dose: 0.5 mcg Documented by: Dextrose (Dextrose 50% 50 Ml Syringe) 25 - 50 ml IV UD PRN; Protocol PRN Reason: Hypoglycemia Protocol Stop: 05/21/20 16:54 Fludrocortisone Acetate (Fludrocortisone Acetate 0.1 Mg Tab) 0.1 mg PO DAILY RENZO Stop: 05/22/20 08:59 Last Admin: 04/22/20 09:21 Dose: 0.1 mg Documented by: Glucagon (Glucagon For Inj 1 Mg Vial) 1 mg SQ UD PRN; Protocol PRN Reason: Hypoglycemia Protocol Stop: 05/21/20 16:54 Glucose (Glucose 40% Gel 15 Gm Tube) 15 - 30 gm PO UD PRN; Protocol PRN Reason: Hypoglycemia Protocol Stop: 05/21/20 16:54 Glucose (Glucose 10 Tabs/Tube) 4 - 8 tabs PO UD PRN; Protocol PRN Reason: Hypoglycemia Protocol Stop: 05/21/20 16:54 Heparin Sodium (Porcine) (Heparin Sod 5,000 Unit/0.5 Ml Vial) 5,000 units SQ Q12 RENZO Stop: 05/21/20 20:59 Last Admin: 04/22/20 09:21 Dose: 5,000 units Documented by: Hydrocortisone (Hydrocortisone 10 Mg Tab) 10 mg PO DAILY@1200,1500 [facility] Stop: 05/22/20 11:59 Last Admin: 04/22/20 13:19 Dose: 10 mg Documented by: Hydrocortisone (Hydrocortisone 10 Mg Tab) 20 mg PO DAILY@0500 [facility] Stop: 05/22/20 04:59 Last Admin: 04/22/20 05:01 Dose: 20 mg Documented by: Piperacillin Sod/Tazobactam (Sod 4.5 gm/ Dextrose) 120 mls @ 30 mls/hr IV Q8H [facility]; Protocol Stop: 04/23/20 23:59 Last Infusion: 04/22/20 13:39 Dose: Infused Documented by: Sodium Chloride (Nss 1000ml) 1,000 mls @ 125 mls/hr IV .Q8H [facility] Stop: 05/22/20 10:29 Last Admin: 04/22/20 11:04 Dose: 125 mls/hr Documented by: Insulin Aspart (Insulin Aspart 100 Units/Ml 3 Ml Pen) 0 units SC ACHS [facility] Stop: 05/21/20 17:14 Last Admin: 04/22/20 13:19 Dose: 1 units Documented by: Insulin Glargine (Insulin Glargine Solostar 100 Units/Ml 3 Ml Pen) 10 units SC BID [facility] Stop: 05/21/20 20:59 Last Admin: 04/22/20 09:25 Dose: 10 units Documented by: Magnesium Oxide (Magnesium Oxide 400 Mg Tab) 400 mg PO QAM [facility] Stop: 05/22/20 08:59 Last Admin: 04/22/20 09:22 Dose: 400 mg Documented by: Miscellaneous (Carbohydrates For Hypoglycemia ) 15 - 30 gm PO UD PRN PRN Reason: Hypoglycemia Protocol Stop: 05/21/20 16:54 Miscellaneous Information (Piperacill/Tazobac Consult Active) 1 ea N/A UD PRN PRN Reason: Consult Stop: 05/21/20 17:05 Ondansetron HCl (Ondansetron 4 Mg Od Tab) 4 mg PO Q8H PRN PRN Reason: Nausea Oxycodone/Acetaminophen (Oxycodone/Acetaminophen 5mg/325mg Tab) 1 tab PO Q8H PRN PRN Reason: Pain Stop: 05/06/20 10:33 Last Admin: 04/22/20 13:29 Dose: 1 tab Documented by: Polyethylene Glycol (Polyethylene (Miralax) 17 Gm Pack) 17 gm PO DAILY PRN PRN Reason: Constipation Stop: 05/21/20 16:54 Senna/Docusate Sodium (Docusate Sodium/Senna 50/8.6mg Tab) 2 tab PO BID [facility] Stop: 05/21/20 20:59 Last Admin: 04/22/20 09:20 Dose: 2 tab Documented by: Tamsulosin HCl (Tamsulosin Hcl 0.4 Mg Cap) 0.4 mg PO BID [facility] Stop: 05/21/20 20:59 Last Admin: 04/22/20 09:20 Dose: 0.4 mg Documented by: Vitamin D (Cholecalciferol 1,000 Units 25 Mcg Tab) 1,000 units PO QAM [facility] Stop: 05/22/20 08:59 Last Admin: 04/22/20 09:20 Dose: 1,000 units Documented by: (1) Acute pancreatitis Acute pancreatitis complication: unspecified Pancreatitis type: unspecified pancreatitis type Qualified Code(s): K85.90 - Acute pancreatitis without necr osis or infection, unspecified (2) Acute on chronic kidney failure Acute renal failure type: unspecified (3) CHF (congestive heart failure) Heart failure chronicity: unspecified Heart failure type: unspecified Qualified Code(s): I50.9 - Heart failure, unspecified
--- NOTE | 2020-04-22 18:18 | Consultation Report ---
DATE OF CONSULTATION: 04/22/2020 NEPHROLOGY CONSULTATION NOTE HISTORY OF PRESENT ILLNESS: The patient is a 75-year-old male with stage IV metastatic melanoma with multiple organ involvement including adrenal gland and bladder, status post chemotherapy, radiation and surgery, status post adrenalectomy and currently has a nephrostomy tube. As per patient, patient is terminal and there is nothing that can be done to help with his cancer. He presented to the hospital yesterday complaining of weakness, nausea, chills, sweats, decreased appetite, shortness of breath, and lightheadedness. He was noted to be hypotensive and have acute pancreatitis on CT scan of the abdomen and pelvis. Hypotension is improving with ongoing IV fluid. He also had acute renal failure on background CKD. Creatinine was 3.97 at admission, but it is trending down with IV fluid. His last creatinine was 2.62 on his previous admission in 11/2019. He does have urine output and he has a nephrostomy tube. He feels slightly better compared to yesterday. He is currently allowed clear liquids. PAST MEDICAL AND SURGICAL HISTORY: As detailed in HPI and on top of that, he also has type 2 diabetes, history of bladder mass, history of congestive heart failure, tachybrady syndrome, paroxysmal atrial fibrillation, sleep apnea, on CPAP, adrenal insufficiency, DVT. ALLERGIES: Reviewed and is as per the reconciliation list. HOME MEDICATIONS: List was also reviewed and is as per the reconciliation list. The patient takes Florinef. He also takes torsemide and hydrocortisone. FAMILY HISTORY: Negative for renal disease or dialysis. SOCIAL HISTORY: Never smoked. No alcohol. He is retired. He is and lives with his . REVIEW OF SYSTEMS: As detailed in HPI. Unless stated otherwise, 12 systems reviewed and negative. PHYSICAL EXAMINATION: GENERAL: Elderly white male who is not in any overt respiratory distress. He is obese. VITAL SIGNS: Blood pressure 97/58, pulse rate 68, temperature 36.8 degrees Celsius, 97% on room air. HEENT: Mucous membrane is moist. NECK: Supple. No jugular venous distention. CHEST: Bilaterally clear to auscultation. CARDIOVASCULAR: S1, S2 regular. ABDOMEN: Soft, nontender. EXTREMITIES: Show no edema. LABORATORY TESTS: Blood work at the time of admission showed a creatinine of 3.97, which is significantly higher than his previous baseline of 2.6. Most recent creatinine is better though at 3.44. Sodium 139, potassium 4.9, BUN 39, calcium 8.4, magnesium 2.3, phosphorus was 2.4. Abdomen and pelvis CT scan showed significant findings of metastatic melanoma as well as findings of acute pancreatitis, no hydronephrosis noted on the right, but there is some moderate left-sided hydroureteronephrosis. ASSESSMENT AND PLAN: A 75-year-old male with advanced untreatable metastatic melanoma with diffuse metastasis as well as chronic obstructive uropathy, status post nephrostomy in the right with chronic kidney disease stage IV with a baseline creatinine of around 3, now admitted with acute pancreatitis. Acute renal failure: The acute component is fairly minimal and is secondary to acute pancreatitis with hypotension. Continue IV fluid to improve his blood pressure. He is making urine and there is no overt obstructive uropathy finding on the right side. Creatinine is trending down, which is a good sign. His pancreatitis symptoms also seem to be subsiding, which is a good sign. He is getting Florinef, which is reasonable as well as hydrocortisone. All of these are his usual outpatient medications and can be continued. Continue daily laboratories. Continue input and output charting. No further workup is needed for acute renal failure.
--- NOTE | 2020-04-22 20:38 | Consultation Report ---
DATE OF CONSULTATION: 04/22/2020 GASTROENTEROLOGY CONSULTATION NOTE REASON FOR CONSULTATION: I was asked by Dr. Bales to consult on this gentleman for evaluation of pancreatitis. HISTORY OF PRESENT ILLNESS: The patient is a 75-year-old with a history of metastatic melanoma. His melanoma started on a lesion in his right shoulder. He went to the Emergency Room because he was "just not feeling well." He describes having some mild nausea, decreased appetite and increased weakness. Upon workup, he was found to have an elevated lipase and imaging showed some evidence of acute pancreatitis. Imaging also showed extensive intra-abdominal lymph node metastasis including significant tumor burden around the pancreas. PAST MEDICAL HISTORY: I reviewed his medical records and past medical history and his past medical history is also significant for being a type 2 diabetic, stage IV kidney disease, hyperparathyroidism, polyneuropathy, hypertensive heart disease, osteoarthritis. He is status post adrenalectomy because of metastatic disease. He has a history of paroxysmal AFib, atherosclerosis. ALLERGIES: HE STATES HE IS ALLERGIC TO PERFLUTREN, PROPYLENE GLYCOL AND SIMVASTATIN. OUTPATIENT MEDICATIONS: Include vitamins, Zofran p.r.n., Tylenol p.r.n., methylprednisolone, Lantus, hydrocortisone, lorazepam, amiodarone, calcitriol, torsemide, oxycodone p.r.n., prochlorperazine at night, docusate sodium, and tamsulosin. FAMILY HISTORY: Negative for gastrointestinal disease. SOCIAL HISTORY: Not significant for active smoking or drinking. He is a former chewing tobacco user. REVIEW OF SYSTEMS: As above, otherwise he denies any recent hair loss. He denies any recent easy bruising. He has had increasing weakness. He denies any seizures, denies any change in vision or hearing. Denies any dysuria. He has had no GI bleeding or nosebleeds. He denies any pruritus or new rashes. He has had no productive cough. He denies any exertional chest pain. PHYSICAL EXAMINATION: GENERAL: Reveals a gentleman sitting in chair in no distress. VITAL SIGNS: Blood pressure is 101/64, pulse is 63, temperature is 36.4. SKIN: Anicteric. EYES: Show anicteric sclerae. MOUTH: Clear of lesions. NECK: Supple with no adenopathy. CHEST: Has some scattered rhonchi, but is otherwise clear. ABDOMEN: Distended but soft and nontender. He has good bowel sounds. EXTREMITIES: Edematous, but warm with fair distal pulses. NEUROLOGIC: He is alert and oriented x3 and grossly intact. LABORATORIES: Show a lipase on admission of 1139 and today it is 586. That barely makes the criteria for pancreatitis. BUN and creatinine are 39 and 3.4 respectively. Hemoglobin on admission was 10.5, and with hydration, he is down to 8.4. IMAGING: CAT scan from yesterday revealed significant increase in bulky lymphadenopathy obscuring the pancreatic head, also increased size of the bladder mass. There were some mild inflammatory change surrounding the pancreas. IMPRESSION AND PLAN: A 75-year-old gentleman with metastatic melanoma and very mild pancreatitis. He is hungry and you are treating him appropriately. His hemoglobin dropped as expected with adequate hydration. There is no other specific treatment. Obviously, his tumor burden is continuing to be the major issue. I discussed this with the patient. I would keep him on a low fat diet and keep him comfortable.
[2020-04-22] MEDS: CALCITRIOL 0.25 MCG CAPSULE PO SCH (21:48)
[2020-04-23] MEDS: LORazepam 1 MG TAB PO PRN ×2 (01:09→21:14)
[2020-04-23] MEDS: SODIUM CHLORIDE 0.9% 1000ML 1,000 ML IV SCH ×2 (03:13→12:02)
[2020-04-23] MEDS: HYDROCORTISONE 10 MG TAB PO SCH ×3 (05:01→15:23)
[2020-04-23] MEDS: oxyCODONE/ACETAMINOPHEN 5mg/325mg TAB PO PRN ×2 (05:01→18:08)
[2020-04-23 06:06] LABS: Basophils # (auto) 0.01 K/uL (0-0.2); Basophils % (auto) 0.2 %; Eosinophils # (auto) 0.23 K/uL (0-0.5); Eosinophils % (auto) 4.5 %; Hematocrit (blood only) 28.6 % (42-52); Hemoglobin 8.5 g/dL (14.0-18.0); Immature Granulocytes # (auto) 0.01 K/uL (0.00-0.02); Immature Granulocytes % (auto) 0.2 %; Lymphocytes % (auto) 15.6 %; Mean Corpuscular Hemoglobin 24.5 pg (25-34); Mean Corpuscular Hgb Conc 29.7 g/dL (32-36); Mean Corpuscular Volume 82.4 fL (80-100); Monocytes # (auto) 0.46 K/uL (0.11-0.59); Neutrophils # (auto) 3.62 K/uL (1.4-6.5); Neutrophils % (auto) 70.5 %; Platelet Count 232 K/uL (130-400); RDW Standard Deviation 51.7 fL (36.4-46.3); Red Blood Count 3.47 M/uL (4.7-6.1); White Blood Count 5.13 K/uL (4.8-10.8)
[2020-04-23 06:32] LABS: Estimated Average Glucose 126 mg/dl
[2020-04-23 06:47] LABS: Magnesium 2.2 mg/dl (1.8-2.4); Phosphorus 3.7 mg/dl (2.5-4.9)
[2020-04-23] MEDS: TAMSULOSIN HCL 0.4 MG CAP PO SCH ×2 (08:35→21:12)
[2020-04-23] MEDS: FLUDROCORTISONE ACETATE 0.1 MG TAB PO SCH (08:35)
[2020-04-23] MEDS: AMIODARONE 200 MG TAB PO SCH (08:35)
[2020-04-23] MEDS: MAGNESIUM OXIDE 400 MG TAB PO SCH (08:35)
[2020-04-23] MEDS: PIPERACILLIN/TAZOBACTAM 4.5 GM in DEXTROSE 5% 100 ML IV SCH ×2 (08:35→15:51)
[2020-04-23] MEDS: DOCUSATE SODIUM/SENNA 50/8.6MG TAB PO SCH ×2 (08:36→20:00)
[2020-04-23] MEDS: CHOLECALCIFEROL 1,000 UNITS 25 MCG TAB PO SCH (08:36)
[2020-04-23] MEDS: INSULIN ASPART 100 UNITS/ML 3 ML PEN SC SCH ×4 (08:40→21:21)
[2020-04-23] MEDS: HEPARIN SOD 5,000 UNIT/0.5 ML VIAL SQ SCH ×2 (08:40→21:22)
[2020-04-23] MEDS: INSULIN GLARGINE SOLOSTAR 100 UNITS/ML 3 ML PEN SC SCH ×2 (08:40→21:20)
[2020-04-23] MEDS ORDERED: TORSEMIDE 20 MG TAB PO SCH (09:00)
[2020-04-23 10:21] LABS: Creatinine Clr Calc Pharmacy 23.8 ml/min; Est GFR (African American) 19.3; Est GFR (Non-African American) 16.6
--- NOTE | 2020-04-23 11:37 | Progress Notes ---
DATE: 04/23/2020 SUBJECTIVE: Overnight, no new issues. Continues to have mild abdominal discomfort and nausea. He is getting IV fluid. Conservative management for acute pancreatitis. OBJECTIVE: VITAL SIGNS: Blood pressure is 103/64, pulse rate 69, temperature 36.7, 96% on room air. HEENT: Mucous membranes moist. NECK: Supple. No jugular venous distention. CHEST: Bilateral clear to auscultation. CARDIOVASCULAR: S1, S2 regular. ABDOMEN: Soft, slightly tender, mild distention. EXTREMITIES: Shows no edema. LABORATORY TESTS: Reviewed. Shows hemoglobin of 8.5, which is similar to yesterday. Creatinine was 3.45, which is stable for the last 2 days. Even at baseline, his creatinine was 2.6. ASSESSMENT AND PLAN: A 75-year-old male with advanced untreatable metastatic melanoma with diffuse metastasis as well as chronic obstructive uropathy, status post nephrostomy tube in the right with chronic kidney disease stage IV with a baseline creatinine of around 3, now admitted with acute pancreatitis. Acute renal failure: The acute component is fairly minimal and secondary to acute pancreatitis with hypotension. This is to be expected. Continue gentle hydration for the time being. He is making urine and on the CAT scan, there is no overt obstructive uropathy finding on the right side. Creatinine seems to be about stable. Continue current medication. Continue to avoid nephrotoxic agents.
--- NOTE | 2020-04-23 12:23 | Hospitalist Progress Note ---
Date of Service April 23, 2020 Assessment & Plan (1) Acute pancreatitis: He is a 75-year-old obese male with significant past medical history including metastatic melanoma and urinary bladder mass with right nephrostomy, splenic lesions and bulky abdominal adenopathy finished chemoradiation was admitted yesterday with nausea and not feeling well. His pancreatic enzymes were elevated on admission CT scan did show mild inflammatory changes around the pancreas consistent with acute pancreatitis with significant increase in size in the right mid abdominal bulky lymphadenopathy/mass which obscures/displaces the pancreatic head" resulting in acute pancreatitis He has been n.p.o. and getting intravenous fluid Clinically much better improvement of symptoms and improvement of lipase Appreciate GI input and recommendation Will advance diet as tolerated to low-fat diet If he can tolerate diet without any significant symptoms he can be discharged home this afternoon or tomorrow His lipase may or may not improve (2) Metastatic melanoma: Inflow abdominal bulky adenopathy as mentioned in CAT scan of the abdomen and pelvis Including bladder mass with history of nephrostomy on the right side No more chemo and radiation therapy Discussed with the patient and he is aware He has been bulky intra-abdominal nodes, bladder mass and status post right nephrostomy tube He is aware about this condition and his prognosis remains poor (3) Bladder mass: Patient with history of metastatic melanoma with bladder mass, splenic lesions, and bulky abdominal adenopathy Patient currently treated with steroids. Continue these while inpatient. May need to consider consultation with Oncology, Surgery, and/or palliative care pending improvement. Monitor I&Os Per outpatient record, patient has been resistant thus far to hospice services. Will discuss about hospice care at home (4) Acute hypotension: Patient presented to the ED with weakness, nausea, chills/sweats, dec reased appetite, SOB, and lightheadedness. Found to be hypotensive and have acute pancreatitis on CT of Abd/Pelvis. Hypotension improved with fluids in the ED. Continue IV fluids to tx pancreatitis. Clear liquid diet for now for bowel rest Zofran PRN nausea Trend Lipase to monitor for improvement Blood pressure remains around 100 systolic (5) Sacral decubitus ulcer: Wound care consult (6) Cellulitis of perineum: Possible sepsis POA and met criteria on admission Patient with cellulitis and chronic sacral decubitus ulcerations. Concern for infection in this area as well. Lactic acid and WBC count within norm. IV Zosyn ordered. Wound care Qshift Wound care nurse consult (7) Acute on chronic kidney failure: He has acute on chronic kidney failure Has nephrostomy on the right side with a bladder mass Will try cautious amount of intravenous fluid Monitor BMP-kidney function remains stable with creatinine around 3.5 Appreciate nephrology input and recommendation No further aggressive treatment (8) Chronic kidney disease, stage 4 (severe): (9) Hypoalbuminemia: (10) Hypomagnesemia: (11) Hypercalcemia: Patient has acute on chronic renal failure with Creatinine of 3.97 on admission. Hypomagnesemia, hypercalcemia, and hypoalbuminemia also noted on labs. Continue IV fluids as above Monitor renal function closely 2g IV magnesium with PO Magnesium oxide 400 mg daily IV fluids will also help lower calcium levels Check Phosphorus Recheck labs in AM-Ms. slightly improved at 3.44 from 3.97 Nephrology consultation (12) Diabetes mellitus, type II: Continue Lantus but at reduced dose for now with clear liquid diet. At home dose is typically 15 units BID. Will decrease to 10 BID for now. 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 Currently rate controlled. Patient previously taken OFF of anticoagulation secondary to hematuria. B/L LE edema, but renal function is worse. He was also hypotensive on admission. Continue home dose of torsemide 20 mg MWF, but consider holding if BP continues to be low or increasing if LE edema worsens Monitor fluid status closely (17) Sleep apnea: Continue CPAP overnight (18) Hx of total adrenalectomy: (19) Adrenal insufficiency: History of total adrenalectomy. Continue home steroids. Consider stress dosing if needed- not needed at this time. (20) DVT prophylaxis: Heparin 5,000 units Q12h Monitor for any signs of bleeding/hematuria. If signs of bleeding occur, consider discontinuation and SCDs only with encouraging ambulation Admission and Anticipated Discharge Date Admission Date: April 21, 2020 Subjective 04/22/2020 The patient was seen and examined in medical floor He is a 75-year-old obese male with significant past medical history including metastatic melanoma and urinary bladder mass with right nephrostomy, splenic lesions and bulky abdominal adenopathy finished chemoradiation was admitted yesterday with nausea and not feeling well. Noted to have acute pancreatitis Has been getting intravenous fluid and n.p.o. except meds Clinically much better today 07/24/2019 The patient was seen and examined in medical floor He complains today of ongoing abdominal discomfort but not any worse since admission He generally weak but denies any other significant symptoms He will be given low-fat diet and see how things go Review of Systems Review of Systems: All systems reviewed and are unremarkable except as noted below Constitutional: + fatigue Gastrointestinal: + bloating and + nausea; no vomiting Musculoskeletal: Has pain in multiple joints Neurologic: Alert, awake and oriented x3 Physical Exam Physical Exam: Lying in bed comfortably Constitutional: well developed, well nourished, + ill appearing and + obese; no acute distress Eyes: PERRL, conjunctivae normal, anicteric sclerae ENMT: external ear and nose normal, oropharynx normal Neck: trachea midline, no thyromegaly Respiratory: normal respiratory effort; no respiratory distress Auscultation: lungs clear to auscultation bilaterally and + diminished lung sounds Cardiovascular: Rate/Rhythm: regular rate and regular rhythm Heart Sounds: no murmur Extremities: + edema Gastrointestinal (Abdomen): Inspection/Auscultation: + abdomen distended and normal bowel sounds Percussion/Palpation: + abdomen tender (Minimally tender epigastrium and lower quadrant) and abdomen soft Musculoskeletal: No acute arthritis in any joint Neurologic: moves all extremities; no focal motor deficits Alert, awake and oriented x3 Psychiatric: A+Ox3, euthymic affect Lymphatic: no cervical or axillary lymphadenopathy Results & Data Results & Data ([facility]) Vital Signs (Past 12 Hours) Vital Signs Temp Pulse Resp BP Pulse Ox 04/23/20 07:18 36.7 C 69 18 103/64 96 Laboratory Results Short CBC 04/23/20 Range/Units 05:13 WBC 5.13 (4.8-10.8) K/uL Hgb 8.5 L (14.0-18.0) g/dL Hct 28.6 L (42-52) % Plt Count 232 (130-400) K/uL BMP 04/23/20 05:13 Creatinine 3.45 H Medications Administered Current Inpatient Medications Acetaminophen (Acetaminophen 325 Mg Tab) 650 mg PO Q4H PRN PRN Reason: pain/fever Stop: 05/21/20 16:54 Amiodarone HCl (Amiodarone 200 Mg Tab) 200 mg PO QAM [facility] Stop: 05/22/20 08:59 Last Admin: 04/23/20 08:35 Dose: 200 mg Documented by: Calcitriol (Calcitriol 0.25 Mcg Capsule) 0.5 mcg PO HS [facility] Stop: 05/21/20 20:59 Last Admin: 04/22/20 21:48 Dose: 0.5 mcg Documented by: Dextrose (Dextrose 50% 50 Ml Syringe) 25 - 50 ml IV UD PRN; Protocol PRN Reason: Hypoglycemia Protocol Stop: 05/21/20 16:54 Fludrocortisone Acetate (Fludrocortisone Acetate 0.1 Mg Tab) 0.1 mg PO DAILY [facility] Stop: 05/22/20 08:59 Last Admin: 04/23/20 08:35 Dose: 0.1 mg Documented by: Glucagon (Glucagon For Inj 1 Mg Vial) 1 mg SQ UD PRN; Protocol PRN Reason: Hypoglycemia Protocol Stop: 05/21/20 16:54 Glucose (Glucose 40% Gel 15 Gm Tube) 15 - 30 gm PO UD PRN; Protocol PRN Reason: Hypoglycemia Protocol Stop: 05/21/20 16:54 Glucose (Glucose 10 Tabs/Tube) 4 - 8 tabs PO UD PRN; Protocol PRN Reason: Hypoglycemia Protocol Stop: 05/21/20 16:54 Heparin Sodium (Porcine) (Heparin Sod 5,000 Unit/0.5 Ml Vial) 5,000 units SQ Q12 [facility] Stop: 05/21/20 20:59 Last Admin: 04/23/20 08:40 Dose: 5,000 units Documented by: Hydrocortisone (Hydrocortisone 10 Mg Tab) 10 mg PO DAILY@1200,1500 [facility] Stop: 05/22/20 11:59 Last Admin: 04/23/20 11:35 Dose: 10 mg Documented by: Hydrocortisone (Hydrocortisone 10 Mg Tab) 20 mg PO DAILY@0500 [facility] Stop: 05/22/20 04:59 Last Admin: 04/23/20 05:01 Dose: 20 mg Documented by: Piperacillin Sod/Tazobactam (Sod 4.5 gm/ Dextrose) 120 mls @ 30 mls/hr IV Q8H [facility]; Protocol Stop: 05/02/20 00:00 Last Infusion: 04/23/20 12:03 Dose: Infused Documented by: Sodium Chloride (Nss 1000ml) 1,000 mls @ 75 mls/hr IV .[id number] [facility] Stop: 05/22/20 10:29 Last Admin: 04/23/20 12:02 Dose: 75 mls/hr Documented by: Insulin Aspart (Insulin Aspart 100 Units/Ml 3 Ml Pen) 0 units SC ACHS [facility] Stop: 05/21/20 17:14 Last Admin: 04/23/20 08:40 Dose: 1 units Documented by: Insulin Glargine (Insulin Glargine Solostar 100 Units/Ml 3 Ml Pen) 10 units SC BID [facility] Stop: 05/21/20 20:59 Last Admin: 04/23/20 08:40 Dose: 10 units Documented by: Lorazepam (Lorazepam 1 Mg Tab) 1 mg PO DAILY PRN PRN Reason: Anxiety Stop: 05/23/20 00:31 Last Admin: 04/23/20 01:09 Dose: 1 mg Documented by: Magnesium Oxide (Magnesium Oxide 400 Mg Tab) 400 mg PO QAM [facility] Stop: 05/22/20 08:59 Last Admin: 04/23/20 08:35 Dose: 400 mg Documented by: Miscellaneous (Carbohydrates For Hypoglycemia ) 15 - 30 gm PO UD PRN PRN Reason: Hypoglycemia Protocol Stop: 05/21/20 16:54 Miscellaneous Information (Piperacill/Tazobac Consult Active) 1 ea N/A UD PRN PRN Reason: Consult Stop: 05/21/20 17:05 Ondansetron HCl (Ondansetron 4 Mg Od Tab) 4 mg PO Q8H PRN PRN Reason: Nausea Oxycodone/Acetaminophen (Oxycodone/Acetaminophen 5mg/325mg Tab) 1 tab PO Q8H PRN PRN Reason: Pain Stop: 05/06/20 10:33 Last Admin: 04/23/20 05:01 Dose: 1 tab Documented by: Polyethylene Glycol (Polyethylene (Miralax) 17 Gm Pack) 17 gm PO DAILY PRN PRN Reason: Constipation Stop: 05/21/20 16:54 Senna/Docusate Sodium (Docusate Sodium/Senna 50/8.6mg Tab) 2 tab PO BID [facility] Stop: 05/21/20 20:59 Last Admin: 04/23/20 08:36 Dose: 2 tab Documented by: Tamsulosin HCl (Tamsulosin Hcl 0.4 Mg Cap) 0.4 mg PO BID [facility] Stop: 05/21/20 20:59 Last Admin: 04/23/20 08:35 Dose: 0.4 mg Documented by: Vitamin D (Cholecalciferol 1,000 Units 25 Mcg Tab) 1,000 units PO QAM [facility] Stop: 05/22/20 08:59 Last Admin: 04/23/20 08:36 Dose: 1,000 units Documented by: (1) Acute pancreatitis Acute pancreatitis complication: unspecified Pancreatitis type: unspecified pancreatitis type Qualified Code(s): K85.90 - Acute pancreatitis without necrosis or infection, unspecified (2) Acute on chronic kidney failure Acute renal failure type: unspecified (3) CHF (congestive heart failure) Heart failure chronicity: unspecified Heart failure type: unspecified Qualified Code(s): I50.9 - Heart failure, unspecified
[2020-04-23] MEDS: CALCITRIOL 0.25 MCG CAPSULE PO SCH (21:14)
[2020-04-23 23:35] VITALS: TEMP 98.1
[2020-04-24] MEDS: PIPERACILLIN/TAZOBACTAM 4.5 GM in DEXTROSE 5% 100 ML IV SCH ×2 (00:05→07:13)
[2020-04-24] MEDS: SODIUM CHLORIDE 0.9% 1000ML 1,000 ML IV SCH (01:06)
[2020-04-24] MEDS: HYDROCORTISONE 10 MG TAB PO SCH ×3 (05:58→14:16)
[2020-04-24] MEDS: oxyCODONE/ACETAMINOPHEN 5mg/325mg TAB PO PRN ×2 (06:14→14:20)
[2020-04-24 06:21] LABS: Creatinine Clr Calc Pharmacy 24.4 ml/min; Est GFR (African American) 19.9; Est GFR (Non-African American) 17.2
[2020-04-24 07:21] VITALS: BP 152/77; O2SAT 98
[2020-04-24] MEDS: AMIODARONE 200 MG TAB PO SCH (08:31)
[2020-04-24] MEDS: MAGNESIUM OXIDE 400 MG TAB PO SCH (08:31)
[2020-04-24] MEDS: TAMSULOSIN HCL 0.4 MG CAP PO SCH (08:31)
[2020-04-24] MEDS: DOCUSATE SODIUM/SENNA 50/8.6MG TAB PO SCH (08:31)
[2020-04-24] MEDS: FLUDROCORTISONE ACETATE 0.1 MG TAB PO SCH (08:31)
[2020-04-24] MEDS: CHOLECALCIFEROL 1,000 UNITS 25 MCG TAB PO SCH (08:31)
[2020-04-24] MEDS: INSULIN GLARGINE SOLOSTAR 100 UNITS/ML 3 ML PEN SC SCH (08:45)
[2020-04-24] MEDS: HEPARIN SOD 5,000 UNIT/0.5 ML VIAL SQ SCH (08:45)
[2020-04-24] MEDS: INSULIN ASPART 100 UNITS/ML 3 ML PEN SC SCH ×2 (08:46→12:42)
--- NOTE | 2020-04-24 11:47 | Progress Notes ---
DATE: 04/24/2020 NEPHROLOGY PROGRESS NOTE SUBJECTIVE: Overnight, no new issues. He continues to get better from his acute pancreatitis at this time. He is also tolerating some oral intake. PHYSICAL EXAMINATION. VITAL SIGNS: Show blood pressure of 152/77, pulse rate 77, temperature 36.7 degrees Celsius, 98% on room air. HEENT: Mucous membranes moist. NECK: Supple, no jugular venous distention. CHEST: Bilaterally clear to auscultation. CARDIOVASCULAR: S1 and S2, regular. ABDOMEN: Soft and slightly tender with mild distention. EXTREMITIES: Show no edema. LABORATORY TEST: Reviewed in detail and shows fairly stable renal function with a creatinine of 3.36, which is slightly better than yesterday when it was 3.45, but overall it has been stable for the last 3 days. ASSESSMENT AND PLAN: A 75-year-old male with advanced untreatable metastatic melanoma with diffuse metastasis as well as chronic obstructive uropathy, status post nephrostomy tube in the right with chronic kidney disease stage IV with a baseline creatinine of around 3, now admitted with acute pancreatitis. Acute renal failure. The acute component is fairly minimal and secondary to acute pancreatitis with hypotension. This is to be expected. Continue gentle hydration for the time being while he is inpatient. We are seeing slow sustained recovery in the renal function and he is now pretty close to baseline. No further workup is needed. Continue to avoid nephrotoxic agents. MTDD
--- NOTE | 2020-04-24 12:35 | Hospitalist Progress Note ---
Date of Service April 24, 2020 Assessment & Plan (1) Acute pancreatitis: He is a 75-year-old obese male with significant past medical history including metastatic melanoma and urinary bladder mass with right nephrostomy, splenic lesions and bulky abdominal adenopathy finished chemoradiation was admitted yesterday with nausea and not feeling well. His pancreatic enzymes were elevated on admission CT scan did show mild inflammatory changes around the pancreas consistent with acute pancreatitis with significant increase in size in the right mid abdominal bulky lymphadenopathy/mass which obscures/displaces the pancreatic head" resulting in acute pancreatitis He has been n.p.o. and getting intravenous fluid Clinically much better improvement of symptoms and improvement of lipase Appreciate GI input and recommendation Will advance diet as tolerated to low-fat diet If he can tolerate diet without any significant symptoms he can be discharged home this afternoon or tomorrow His abdominal discomfort and pain are much improved and has been tolerating fat- free diet Ambulating in the hallway and in the room Diarrhea is controlled Will be discharged this afternoon (2) Metastatic melanoma: Inflow abdominal bulky adenopathy as mentioned in CAT scan of the abdomen and pelvis Including bladder mass with history of nephrostomy on the right side No more chemo and radiation therapy Discussed with the patient and he is aware He has been bulky intra-abdominal nodes, bladder mass and status post right nephrostomy tube He is aware about this condition and his prognosis remains poor (3) Bladder mass: Patient with history of metastatic melanoma with bladder mass, splenic lesions, and bulky abdominal adenopathy Patient currently treated with steroids. Continue these while inpatient. May need to consider consultation with Oncology, Surgery, and/or palliative care pending improvement. Monitor I&Os Per outpatient record, patient has been resistant thus far to hospice services. Will discuss about hospice care at home (4) Acute hypotension: Patient presented to the ED with weakness, nausea, chills/sweats, decreased appetite, SOB, and lightheadedness. Found to be hypotensive and have acute pancreatitis on CT of Abd/Pelvis. Hypotension improved with fluids in the ED. Continue IV fluids to tx pancreatitis. Clear liquid diet for now for bowel rest Zofran PRN nausea Trend Lipase to monitor for improvement Blood pressure remains around 100 systolic Controlled (5) Sacral decubitus ulcer: Wound care consult (6) Cellulitis of perineum: Possible sepsis POA and met criteria on admission Patient with cellulitis and chronic sacral decubitus ulcerations. Concern for infection in this area as well. Lactic acid and WBC count within norm. IV Zosyn ordered. Wound care Qshi Wound care nurse consult Advised to keep the wound clean and dry-no antibiotic is needed (7) Acute on chronic kidney failure: He has acute on chronic kidney failure Has nephrostomy on the right side with a bladder mass Will try cautious amount of intravenous fluid Monitor BMP-kidney function remains stable with creatinine around 3.5 Appreciate nephrology input and recommendation No further aggressive treatment (8) Chronic kidney disease, stage 4 (severe): (9) Hypoalbuminemia: (10) Hypomagnesemia: (11) Hypercalcemia: Patient has acute on chronic renal failure with Creatinine of 3.97 on admission. Hypomagnesemia, hypercalcemia, and hypoalbuminemia also noted on labs. Continue IV fluids as above Monitor renal function closely 2g IV magnesium with PO Magnesium oxide 400 mg daily IV fluids will also help lower calcium levels Check Phosphorus Recheck labs in AM-Ms. slightly improved at 3.44 from 3.97 Nephrology consultation (12) Diabetes mellitus, type II: Continue Lantus but at reduced dose for now with clear liquid diet. At home dose is typically 15 units BID. Will decrease to 10 BID for now. 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 Currently rate controlled. Patient previously taken OFF of anticoagulation secondary to hematuria. B/L LE edema, but renal function is worse. He was also hypotensive on admission. Continue home dose of torsemide 20 mg MWF, but consider holding if BP continues to be low or increasing if LE edema worsens Monitor fluid status closely (17) Sleep apnea: Continue CPAP overnight (18) Hx of total adrenalectomy: (19) Adrenal insufficiency: History of total adrenalectomy. Continue home steroids. Consider stress dosing if needed- not needed at this time. (20) DVT prophylaxis: Heparin 5,000 units Q12h Monitor for any signs of bleeding/hematuria. If signs of bleeding occur, consider discontinuation and SCDs only with encouraging ambulation Admission and Anticipated Discharge Date Admission Date: April 21, 2020 Subjective 04/22/2020 The patient was seen and examined in medical floor He is a 75-year-old obese male with significant past medical history including metastatic melanoma and urinary bladder mass with right nephrostomy, splenic lesions and bulky abdominal adenopathy finished chemoradiation was admitted yesterday with nausea and not feeling well. Noted to have acute pancreatitis Has been getting intravenous fluid and n.p.o. except meds Clinically much better today 04/23/2020 The patient was seen and examined in medical floor He complains today of ongoing abdominal discomfort but not any worse since admission He generally weak but denies any other significant symptoms He will be given low-fat diet and see how things go 04/24/2020 The patient was seen and examined in medical floor He has been feeling a lot better today and has been tolerating fat free diet Denies any significant abdominal discomfort and/or pain His diarrhea has stopped Review of Systems Review of Systems: All systems reviewed and are unremarkable except as noted below Constitutional: + fatigue Gastrointestinal: + bloating and + nausea; no vomiting Musculoskeletal: Has pain in multiple joints Neurologic: Alert, awake and oriented x3 Physical Exam Physical Exam: Lying in bed comfortably Constitutional: well developed, well nourished and + obese; no acute distress and not ill appearing Eyes: PERRL, conjunctivae normal, anicteric sclerae ENMT: external ear and nose normal, oropharynx normal Neck: trachea midline, no thyromegaly Respiratory: normal respiratory effort; no respiratory distress A uscultation: lungs clear to auscultation bilaterally and + diminished lung sounds Cardiovascular: Rate/Rhythm: regular rate and regular rhythm Heart Sounds: no murmur Extremities: + edema Gastrointestinal (Abdomen): Inspection/Auscultation: + abdomen distended and normal bowel sounds Percussion/Palpation: abdomen soft; abdomen nontender (Minimally tender epigastrium and lower quadrant) Musculoskeletal: No acute arthritis involving any joint Neurologic: moves all extremities; no focal motor deficits Alert, 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 Psychiatric: A+Ox3, euthymic affect Lymphatic: no cervical or axillary lymphadenopathy Results & Data Results & Data ([facility]) Vital Signs (Past 12 Hours) Vital Signs Temp Pulse Resp BP Pulse Ox 04/24/20 07:20 36.7 C 77 18 152/77 H 98 Laboratory Results BMP 04/24/20 05:18 Creatinine 3.36 H Medications Administered Current Inpatient Medications Acetaminophen (Acetaminophen 325 Mg Tab) 650 mg PO Q4H PRN PRN Reason: pain/fever Stop: 11/02/20 16:54 Amiodarone HCl (Amiodarone 200 Mg Tab) 200 mg PO QAM [facility] Stop: 05/22/20 08:59 Last Admin: 04/24/20 08:31 Dose: 200 mg Documented by: Calcitriol (Calcitriol 0.25 Mcg Capsule) 0.5 mcg PO HS RENZO Stop: 05/21/20 20:59 Last Admin: 04/23/20 21:14 Dose: 0.5 mcg Documented by: Dextrose (Dextrose 50% 50 Ml Syringe) 25 - 50 ml IV UD PRN; Protocol PRN Reason: Hypoglycemia Protocol Stop: 05/21/20 16:54 Fludrocortisone Acetate (Fludrocortisone Acetate 0.1 Mg Tab) 0.1 mg PO DAILY RENZO Stop: 05/22/20 08:59 Last Admin: 04/24/20 08:31 Dose: 0.1 mg Documented by: Glucagon (Glucagon For Inj 1 Mg Vial) 1 mg SQ UD PRN; Protocol PRN Reason: Hypoglycemia Protocol Stop: 05/21/20 16:54 Glucose (Glucose 40% Gel 15 Gm Tube) 15 - 30 gm PO UD PRN; Protocol PRN Reason: Hypoglycemia Protocol Stop: 05/21/20 16:54 Glucose (Glucose 10 Tabs/Tube) 4 - 8 tabs PO UD PRN; Protocol PRN Reason: Hypoglycemia Protocol Stop: 05/21/20 16:54 Heparin Sodium (Porcine) (Heparin Sod 5,000 Unit/0.5 Ml Vial) 5,000 units SQ Q12 RENZO Stop: 05/21/20 20:59 Last Admin: 04/24/20 08:45 Dose: 5,000 units Documented by: Hydrocortisone (Hydrocortisone 10 Mg Tab) 10 mg PO DAILY@1200,1500 [facility] Stop: 05/22/20 11:59 Last Admin: 04/24/20 12:15 Dose: 10 mg Documented by: Hydrocortisone (Hydrocortisone 10 Mg Tab) 20 mg PO DAILY@0500 [facility] Stop: 05/22/20 04:59 Last Admin: 04/24/20 05:58 Dose: 20 mg Documented by: Piperacillin Sod/Tazobactam (Sod 4.5 gm/ Dextrose) 120 mls @ 30 mls/hr IV Q8H RENZO; Protocol Stop: 05/02/20 00:00 Last Infusion: 04/24/20 10:39 Dose: Infused Documented by: Sodium Chloride (Nss 1000ml) 1,000 mls @ 75 mls/hr IV .[id number] [facility] Stop: 05/22/20 10:29 Last Infusion: 04/24/20 06:33 Dose: 75 mls/hr Documented by: Insulin Aspart (Insulin Aspart 100 Units/Ml 3 Ml Pen) 0 units SC ACHS [facility] Stop: 05/21/20 17:14 Last Admin: 04/24/20 08:46 Dose: 3 units Documented by: Insulin Glargine (Insulin Glargine Solostar 100 Units/Ml 3 Ml Pen) 10 units SC BID [facility] Stop: 05/21/20 20:59 Last Admin: 04/24/20 08:45 Dose: 10 units Documented by: Lorazepam (Lorazepam 1 Mg Tab) 1 mg PO DAILY PRN PRN Reason: Anxiety Stop: 05/23/20 00:31 Last Admin: 04/23/20 21:14 Dose: 1 mg Documented by: Magnesium Oxide (Magnesium Oxide 400 Mg Tab) 400 mg PO QAM [facility] Stop: 05/22/20 08:59 Last Admin: 04/24/20 08:31 Dose: 400 mg Documented by: Miscellaneous (Carbohydrates For Hypoglycemia ) 15 - 30 gm PO UD PRN PRN Reason: Hypoglycemia Protocol Stop: 05/21/20 16:54 Miscellaneous Information (Piperacill/Tazobac Consult Active) 1 ea N/A UD PRN PRN Reason: Consult Stop: 05/21/20 17:05 Ondansetron HCl (Ondansetron 4 Mg Od Tab) 4 mg PO Q8H PRN PRN Reason: Nausea Oxycodone/Acetaminophen (Oxycodone/Acetaminophen 5mg/325mg Tab) 1 tab PO Q8H PRN PRN Reason: Pain Stop: 05/06/20 10:33 Last Admin: 04/24/20 06:14 Dose: 1 tab Documented by: Polyethylene Glycol (Polyethylene (Miralax) 17 Gm Pack) 17 gm PO DAILY PRN PRN Reason: Constipation Stop: 05/21/20 16:54 Senna/Docusate Sodium (Docusate Sodium/Senna 50/8.6mg Tab) 2 tab PO BID [facility] Stop: 05/21/20 20:59 Last Admin: 04/24/20 08:31 Dose: 2 tab Documented by: Tamsulosin HCl (Tamsulosin Hcl 0.4 Mg Cap) 0.4 mg PO BID [facility] Stop: 05/21/20 20:59 Last Admin: 04/24/20 08:31 Dose: 0.4 mg Documented by: Vitamin D (Cholecalciferol 1,000 Units 25 Mcg Tab) 1,000 units PO QAM [facility] Stop: 05/22/20 08:59 Last Admin: 04/24/20 08:31 Dose: 1,000 units Documented by: (1) Acute pancreatitis Acute pancreatitis complication: unspecified Pancreatitis type: unspecified pancreatitis type Qualified Code(s): K85.90 - Acute pancreatitis without necrosis or infection, unspecified (2) Acute on chronic kidney failure Acute renal failure type: unspecified (3) CHF (congestive heart failure) Heart failure chronicity: unspecified Heart failure type: unspecified Qualified Code(s): I50.9 - Heart failure, unspecified
[2020-04-24 13:45] VITALS: PULSE 71
--- NOTE | 2020-04-25 10:52 | Discharge Summary ---
Date of Service April 25, 2020 Admission HPI Per Admitting Provider Patient is a 75 yo male with an extensive past medical history including Type II DM with CKD stage 4 and insulin dependence, hyperparathyroidism, polyneuropathy secondary to DM, CHF with hypertensive heart disease, LILLIANA on CPAP, adrenal insufficiency with history of total adrenalectomy, paroxysmal Afib, tachy-oscar syndrome, HTN, Atherosclerosis, polycystic kidneys, obstructive uropathy secondary to bladder mass with history of nephrostomy tube placement, chronic anemia, & metastatic melanoma who presented to the ED overall not feeling well. The patient has history of multiple admissions to the hospital for various reasons including septic shock secondary to ESBL E. Coli UTI, obstructive uropathy, etc. Yesterday, the patient states that he started to have sweats/chills, SOB, lightheadedness, nausea, decrease in appetite, and felt like he had to move his bowels but couldn't. This continued this morning and worsened, so he called EMS and was brought to the ED for evaluation. He does also note that he has chronic bed sores on and off that have been worse recently. He has [employer] at home services, and there are nurses that help him change dressings and change positions at home. The patient is very tired during examination, so it is difficult to get further details from the patient while speaking with him. Since admission, the patient had a CT of the abd/pelvis which showed signs of acute pancreatitis. Lipase was elevated to 1139. CBC was unrevealing other than chronic anemia. Renal function was slightly worse than baseline. Previously baseline creatinine in November 2019 was around 3.1. Creatinine today was 3.97. Magnesium noted to be low at 1.6. Urine and blood cultures pending. He also has hypoalbuminemia and hypercalcemia on initial lab evaluation. Admission Exam Per Admitting Provider Constitutional: + ill appearing and + morbidly obese; no acute distress Eyes: PERRL, conjunctivae normal, anicteric sclerae ENMT: external ear and nose normal, oropharynx normal Neck: trachea midline, no thyromegaly Respiratory: normal respiratory effort, lungs clear to auscultation Cardiovascular: Rate/Rhythm: regular rate and regular rhythm Heart Sounds: normal S1 and normal S2; no murmur and no cardiac rub Extremities: + edema (B/L LE Edema. 1-2+ pitting edema B/L) Gastrointestinal (Abdomen): Inspection/Auscultation: + abdomen distended and normal bowel sounds Percussion/Palpation: + abdomen tender (Mild generalized) and abdomen soft; abdomen not rigid and no abdominal mass Musculoskeletal: Head/Neck/Chest: normocephalic, head atraumatic and neck supple Psychiatric: Orientation: alert Speech: normal rate/rhythm/volume of speech Affect: euthymic affect Principal Diagnosis Acute pancreatitis-resolved, metastatic melanoma, urinary bladder mass, right nephrostomy tube, chronic kidney disease Discharge Exam Constitutional well developed, well nourished and + obese; no acute distress and not ill appearing Eyes PERRL, conjunctivae normal, anicteric sclerae ENMT external ear and nose normal, oropharynx normal Neck trachea midline, no thyromegaly Respiratory normal respiratory effort; no respiratory distress Auscultation: lungs clear to auscultation bilaterally and + diminished lung sounds Cardiovascular Rate/Rhythm: regular rate and regular rhythm Heart Sounds: no murmur Extremities: + edema Gastrointestinal (Abdomen) Inspection/Auscultation: + abdomen distended and normal bowel sounds Percussion/Palpation: abdomen soft; abdomen nontender (Minimally tender epigastrium and lower quadrant) Neurologic moves all extremities; no focal motor deficits Psychiatric A+Ox3, euthymic affect Lymphatic no cervical or axillary lymphadenopathy Discharge Data Allergies Allergy/AdvReac Type Severity Reaction Status Date / Time perflutren AdvReac Intermediate GI SYMPTOMS Verified 04/21/20 13:29 propylene glycol AdvReac Intermediate GI SYMPTOMS Verified 04/21/20 13:29 simvastatin AdvReac Intermediate JOINT AND Verified 04/21/20 13:29 MUSCLE PAIN Consultations 04/21/20 14:35 ED Decision to Admit Stat 04/21/20 16:55 Consult Case Management - Discharge Planning Routine Consult Gastroenterology Routine Consult Nephrology Routine Ordered Studies 04/21/20 11:56 CT abd pelvis wo con Stat Hospital Course (1) Acute pancreatitis: He is a 75-year-old obese male with significant past medical history including metastatic melanoma and urinary bladder mass with right nephrostomy, splenic lesions and bulky abdominal adenopathy finished chemoradiation was admitted yesterday with nausea and not feeling well. His pancreatic enzymes were elevated on admission CT scan did show mild inflammatory changes around the pancreas consistent with acute pancreatitis with significant increase in size in the right mid abdominal bulky lymphadenopathy/mass which obscures/displaces the pancreatic head" resulting in acute pancreatitis He has been n.p.o. and getting intravenous fluid Clinically much better improvement of symptoms and improvement of lipase Appreciate GI input and recommendation Will advance diet as tolerated to low-fat diet If he can tolerate diet without any significant symptoms he can be discharged home this afternoon or tomorrow His abdominal discomfort and pain are much improved and has been tolerating fat- free diet Ambulating in the hallway and in the room Diarrhea is controlled Will be discharged this afternoon (2) Metastatic melanoma: Inflow abdominal bulky adenopathy as mentioned in CAT scan of the abdomen and pelvis Including bladder mass with history of nephrostomy on the right side No more chemo and radiation therapy Discussed with the patient and he is aware He has been bulky intra-abdominal nodes, bladder mass and status post right nephrostomy tube He is aware about this condition and his prognosis remains poor (3) Bladder mass: Patient with history of metastatic melanoma with bladder mass, splenic lesions, and bulky abdominal adenopathy Patient currently treated with steroids. Continue these while inpatient. May need to consider consultation with Oncology, Surgery, and/or palliative care pending improvement. Monitor I&Os Per outpatient record, patient has been resistant thus far to hospice services. Will discuss about hospice care at home (4) Acute hypotension: Patient presented to the ED with weakness, nausea, chills/sweats, decreased appetite, SOB, and lightheadedness. Found to be hypotensive and have acute pancreatitis on CT of Abd/Pelvis. Hypotension improved with fluids in the ED. Continue IV fluids to tx pancreatitis. Clear liquid diet for now for bowel rest Zofran PRN nausea Trend Lipase to monitor for improvement Blood pressure remains around 100 systolic Controlled (5) Sacral decubitus ulcer: Wound care consult (6) Cellulitis of perineum: Possible sepsis POA and met criteria on admission Patient with cellulitis and chronic sacral decubitus ulcerations. Concern for infection in this area as well. Lactic acid and WBC count within norm. IV Zosyn ordered. Wound care Qshift Wound care nurse consult Advised to keep the wound clean and dry-no antibiotic is needed (7) Acute on chronic kidney failure: He has acute on chronic kidney failure Has nephrostomy on the right side with a bladder mass Will try cautious amount of intravenous fluid Monitor BMP-kidney function remains stable with creatinine around 3.5 Appreciate nephrology input and recommendation No further aggressive treatment (8) Chronic kidney disease, stage 4 (severe): (9) Hypoalbuminemia: (10) Hypomagnesemia: (11) Hypercalcemia: Patient has acute on chronic renal failure with Creatinine of 3.97 on admission. Hypomagnesemia, hypercalcemia, and hypoalbuminemia also noted on labs. Continue IV fluids as above Monitor renal function closely 2g IV magnesium with PO Magnesium oxide 400 mg daily IV fluids will also help lower calcium levels Check Phosphorus Recheck labs in AM-Ms. slightly improved at 3.44 from 3.97 Nephrology consultation (12) Diabetes mellitus, type II: Continue Lantus but at reduced dose for now with clear liquid diet. At home dose is typically 15 units BID. Will decrease to 10 BID for now. 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 Currently rate controlled. Patient previously taken OFF of anticoagulation secondary to hematuria. B/L LE edema, but renal function is worse. He was also hypotensive on admission. Continue home dose of torsemide 20 mg MWF, but consider holding if BP continues to be low or increasing if LE edema worsens Monitor fluid status closely (17) Sleep apnea: Continue CPAP overnight (18) Hx of total adrenalectomy: (19) Adrenal insufficiency: History of total adrenalectomy. Continue home steroids. Consider stress dosing if needed- not needed at this time. (20) DVT prophylaxis: Heparin 5,000 units Q12h Monitor for any signs of bleeding/hematuria. If signs of bleeding occur, consider discontinuation and SCDs only with encouraging ambulation Total Time Total Time Spent Total Time Spent (In Minutes): 35 minutes Total Time Includes: Examination of the Patient, Discharge Planning, Medication Reconciliation and Communication With Other Providers Discharge Plan Discharge Items Patient Disposition: Home - Self-Care Reason For Visit: ACUTE PANCREATITIS Discharge Diagnosis: Acute pancreatitis-resolved, metastatic melanoma, urinary bladder mass, right nephrostomy tube, chronic kidney disease Condition on Discharge: Fair Activity: Resume your previous activity Non-emergency contact: Primary Care Provider Call non-emergency contact if: you have any medication questions and your symptoms worsen Follow-up/Referrals: Prasad Mcguire DO [Primary Care Provider] - 04/30/20 11:00 am (Date & Time 04/30/2020 11:00 AM Provider Prasad Mcguire Department [facility] ) Diet: Carb Consistent or DM2 Addtl Attending Provider Instructions: Please take precaution to avoid falls Advised to have low-fat diet and small meals Pending Studies at Discharge: No Stand-Alone Forms: [facility] [employer], Smoking Cessation Medications and DC Order Prescriptions: Continued ondansetron HCl 4 mg tablet 4 mg PO Q8H PRN (Reason: Nausea) RF: 0 cholecalciferol (vitamin D3) [Vitamin D3] 1,000 unit Capsule 1,000 unit PO QAM RF: 0 acetaminophen [Tylenol Extra Strength] 500 mg Tablet 500 mg PO Q6H PRN (Reason: Pain) RF: 0 methylprednisolone sodium succ 125 mg Recon Soln 125 mg IM DIRECTED PRN (Reason: EMERGENCY CASE) RF: 0 amiodarone 200 mg tablet 200 mg PO QAM RF: 0 sennosides-docusate sodium [Senexon-S] 8.6-50 mg tablet 2 tab PO BID RF: 0 tamsulosin 0.4 mg capsule 0.4 mg PO BID RF: 0 fludrocortisone 0.1 mg tablet 0.1 mg PO DAILY RF: 0 hydrocortisone 10 mg tablet 10 mg PO DAILY@1200,1500 RF: 0 hydrocortisone 10 mg tablet 20 mg PO DAILY@0500 RF: 0 Lantus Solostar U-100 Insulin 100 unit/mL (3 mL) insulin pen 15 unit SC BID RF: 0 lorazepam 1 mg tablet 1 mg PO DAILY PRN (Reason: Anxiety) RF: 0 calcitriol 0.5 mcg capsule 0.5 mcg PO HS RF: 0 torsemide 20 mg tablet 20 mg PO MOWEFR@0900 Qty: 30 RF: 1 prochlorperazine maleate 5 mg tablet 5 mg PO Q6H PRN (Reason: Nausea) RF: 0 oxycodone-acetaminophen 5-325 mg tablet 1 tab PO Q8H PRN (Reason: Pain) RF: 0 Discharge Orders: Discharge Order (Routine); Ordered 04/24/20 Ordered By: Edgar Brand/Other Patient Handouts: Managing Type 2 Diabetes Admission Data Admit Date/Time: 04/21/20 15:04 Attending Provider: Edgar Bales Admit Provider: Binh Babcock Primary Care Provider: Prasad Mcguire Other Providers: Binh Babcock ; Oj Charles ; Micha Weber Other Interventions: Discharge Summary Assessment (RN) Last Done: 04/24/20 13:44
== END 2020-04-24 15:36 | disposition home or self-care (01) | DRG 871 ==
LOC: ED 11:23 → 3W 15:04 → SUATTDRO 15:04 → 3W 16:11

== ENCOUNTER 2020-05-11 13:34 | Inpatient (IN) ==
[2020-05-11] MEDS ORDERED: ONDANSETRON INJ 2 MG/ML 2 ML VIAL IV STA (14:03)
--- NOTE | 2020-05-11 14:12 | Emergency Department Note ---
History of Present Illness General Chief complaint: Abdominal Pain Stated complaint: NAUSEA,ABD PAIN Time Seen by Provider: 05/11/20 13:54 Source: patient History of Present Illness Provider complaint: Abdominal pain Onset (ago): week(s) Location: abdomen Radiation: non-radiation Severity: severe Pain Consistency: + intermittent Maximum Pain Intensity: 9 Quality: + dull Relieved By: + none Associated symptoms: + fever/chills (99.7) and + nausea/vomiting; no chest pain, no cough and no shortness of breath This is a 75-year-old male on hospice for metastatic melanoma with a history of pancreatitis presenting with abdominal pain. The patient has had this pain for several weeks. He describes it as dull and rates it a 9 out of 10 in severity. It is worse when he tries to eat. He has not been able to eat for the past 2 days despite taking his nausea medication at home. He states he was admitted for pancreatitis and continues to have the same pain. He feels bad in general. He has had a low-grade temperature of 99.7. He denies any cough or cold symptoms, known exposure to COVID-19, shortness of breath or chest pain. He has not had a bowel movement 3 days. He states his nephrostomy output is usually clear. He states he has been taking his water pill but he continues to have swelling in his lower extremities. Home Medications Home Medications Medication Instructions Recorded Confirmed Type cholecalciferol (vitamin D3) 1,000 unit PO QAM 04/20/18 05/11/20 History [Vitamin D3] ondansetron HCl 4 mg tablet 4 mg PO Q8H PRN tab 08/10/18 05/11/20 History acetaminophen [Tylenol Extra 500 mg PO Q6H PRN 05/22/19 05/11/20 History Strength] methylprednisolone sodium succ 125 mg IM DIRECTED PRN 05/22/19 05/11/20 History Lantus Solostar U-100 Insulin 15 unit SC BID 07/02/19 05/11/20 History hydrocortisone 10 mg PO DAILY@1200,1500 07/02/19 05/11/20 History hydrocortisone 20 mg PO DAILY@0500 07/02/19 05/11/20 History calcitriol 0.5 mcg PO HS 09/09/19 05/11/20 History oxycodone-acetaminophen 2 tab PO Q8H PRN 11/26/19 05/11/20 History fludrocortisone 0.1 mg PO DAILY 04/21/20 05/11/20 History sennosides-docusate sodium 3 tab PO QAM 04/21/20 05/11/20 History [Senexon-S] tamsulosin 0.4 mg PO DAILY 04/21/20 05/11/20 History amiodarone [Pacerone] 200 mg PO QPM 05/11/20 05/11/20 History docusate sodium 100 mg PO BID PRN 05/11/20 05/11/20 History lorazepam 1 mg PO Q8H PRN 05/11/20 05/11/20 History morphine concentrate 5 mg PO Q2H PRN 05/11/20 05/11/20 History prochlorperazine maleate 5 mg PO Q6H PRN 05/11/20 05/11/20 History sennosides-docusate sodium 2 tab-cap PO HS 05/11/20 05/11/20 History [Senexon-S] torsemide 20 mg PO 3XWK 05/11/20 05/11/20 History Allergies Allergy/AdvReac Type Severity Reaction Status Date / Time perflutren AdvReac Intermediate GI SYMPTOMS Verified 05/11/20 15:51 propylene glycol AdvReac Intermediate GI SYMPTOMS Verified 05/11/20 15:52 simvastatin AdvReac Intermediate JOINT AND Verified 05/11/20 15:52 MUSCLE PAIN Past Med/Surg History Medical History Adrenal insufficiency S/P LEFT ADRENALECTOMY- ON CHRONIC HYDROCORTISONE Anemia Anxiety Bladder mass Chronic kidney disease, stage 4 (severe) Degenerative disc disease Diabetes mellitus, type II Dyslipidemia History of immunotherapy Keytruda x 2 Cycles (had to stop after 2nd cycle) Current Opdivo q 2 weeks (currently on hold) - started 05/2017 - 04/2018 History of transfusion of packed red blood cells Hypertension Left bundle branch block Metastatic malignant melanoma Morbid obesity Pacemaker Septic shock Sleep apnea CPAP HS Tachy-oscar syndrome Urinary tract infection due to ESBL Klebsiella Surgical History History of cystoscopy History of esophagogastroduodenoscopy (EGD) History of tooth extraction Hx of total adrenalectomy LEFT SIDE-- HX B/L ADRENAL MASSES; UNDERWENT LAP LEFT ADRENAL MASS EXCISION 04/14/17; PATHOLOGY METASTATIC MALIGNANT MELANOMA WITH VASCULAR INVASION Nephrostomy status Family History Father No problems noted. Mother Colon cancer, Onset Age: 85 Chemo and Resection - Alive and well now Sister Breast cancer, Onset Age: 55 Had Radiation - Alive and well now Sister No problems noted. Sister No problems noted. Sister No problems noted. Sister No problems noted. Brother No problems noted. Son No problems noted. Son No problems noted. Social History Smoking Status: Never smoker Second Hand Exposure: No; Do You Dip or Chew Tobacco: Yes; Tobacco Cessation Education Requested by Patient: No Hx Alcohol Use: No Hx Substance Use: No Preferred Language: Slovak Communication Ability: Effective Visual Impairment: Limited Hearing Ability: Hard of Hearing Welfare Eligibility Interviewer Required: No Beliefs That Will Affect Care: None marital status: Life Partner Current Living Situation: Family current occupational status: retired current occupation: Retired - [employer] Feels Safe at Home: Yes Safety Concerns: Feels Safe At This Time caffeine: Yes (2 cups of coffee/day ) during the past year weight has: remained stable Assistive Devices: Cane and Glasses Assistive Devices Comment: 2L O2 nasal cannula PRN SOB Review of Systems See HPI for pertinent positives & negatives. and A total of 10 systems reviewed and were otherwise negative Physical Exam Vital Signs Vital Signs - 24 hr 05/11/20 13:36 05/11/20 14:32 05/11/20 15:06 Temperature 36.7 C Temperature Source Oral Pulse Rate 104 H Pulse Rate [Left Finger] 60 Pulse Rate from SpO2 Sensor Pulse Rhythm Regular Pulse Strength Normal Respiratory Rate 20 18 Respiratory Effort / Characteristics Non-Labored Spontaneous Respiratory Depth Normal Respiratory Pattern Regular Blood Pressure 86/49 L Blood Pressure [Left Arm] 104/50 L Blood Pressure Mean 61 Blood Pressure Mean [Left Arm] 68 Blood Pressure Position Sitting Pulse Oximetry 100 92 96 Oxygen Delivery Method Nasal Cannula Room Air Room Air Oxygen Flow Rate 2 Sepsis Recent Fever Within 48 Hours No Sepsis New/Unexplained Change in Mental Status No Sepsis Action Taken by Nursing No Action Required 05/11/20 15:34 05/11/20 16:00 05/11/20 16:01 Temperature Temperature Source Pulse Rate 83 83 Pulse Rate [Left Finger] 84 Pulse Rate from SpO2 Sensor 84 83 Pulse Rhythm Pulse Strength Respiratory Rate 20 16 17 Respiratory Effort / Characteristics Respiratory Depth Normal Respiratory Pattern Blood Pressure 111/56 L Blood Pressure [Left Arm] 104/55 L Blood Pressure Mean 73 Blood Pressure Mean [Left Arm] 71 Blood Pressure Position Pulse Oximetry 96 96 95 Oxygen Delivery Method Room Air Oxygen Flow Rate Sepsis Recent Fever Within 48 Hours Sepsis New/Unexplained Change in Mental Status Sepsis Action Taken by Nursing 05/11/20 16:30 05/11/20 16:31 05/11/20 17:00 Temperature Temperature Source Pulse Rate 78 79 75 Pulse Rate [Left Finger] Pulse Rate from SpO2 Sensor 78 79 76 Pulse Rhythm Pulse Strength Respiratory Rate 13 16 Respiratory Effort / Characteristics Respiratory Depth Respiratory Pattern Blood Pressure 119/55 L 118/55 L Blood Pressure [Left Arm] Blood Pressure Mean 68 68 Blood Pressure Mean [Left Arm] Blood Pressure Position Pulse Oximetry 95 96 93 Oxygen Delivery Method Oxygen Flow Rate Sepsis Recent Fever Within 48 Hours Sepsis New/Unexplained Change in Mental Status Sepsis Action Taken by Nursing 05/11/20 17:01 Temperature Temperature Source Pulse Rate 75 Pulse Rate [Left Finger] Pulse Rate from SpO2 Sensor 76 Pulse Rhythm Pulse Strength Respiratory Rate Respiratory Effort / Characteristics Respiratory Depth Respiratory Pattern Blood Pressure Blood Pressure [Left Arm] Blood Pressure Mean Blood Pressure Mean [Left Arm] Blood Pressure Position Pulse Oximetry 95 Oxygen Delivery Method Oxygen Flow Rate Sepsis Recent Fever Within 48 Hours Sepsis New/Unexplained Change in Mental Status Sepsis Action Taken by Nursing Constitutional: Vital signs reviewed. Eyes: Pupils are equal round reactive to light. Conjunctiva are noninjected. ENT: Pharynx is clear without erythema or exudate. Mucous membranes are dry. Neck supple without meningeal signs. Respiratory: Clear to auscultation bilaterally. Breath sounds are equal bilaterally. Cardiovascular: Mild tachycardia. Regular rhythm. Heart rate 104. GI: Soft with periumbilical tenderness. No guarding. Bowel sounds are present. Right nephrostomy tube with dark yellow urine. Musculoskeletal: Bilateral lower extremity edema. Integumentary: No cyanosis. or jaundice. Neurological: The patient is awake and alert. No focal deficits. Psychiatric: Normal affect. Not anxious appearing. Course Administered Medications Meropenem 250 mg/ Syringe 5 mls @ 2 mls/min IV Q12H [facility]; Protocol Stop: 05/16/20 18:59 Last Admin: 05/11/20 20:07 Dose: 2 mls/min Documented by: [id number] Discontinued Medications Sodium Chloride (Nss) 500 mls @ 999 mls/hr IV .Q31M RENZO Stop: 05/11/20 14:45 Last Infusion: 05/11/20 16:03 Dose: 0 mls/hr Documented by: [id number] Admin: 05/11/20 15:32 Dose: 999 mls/hr Documented by: [id number] Meropenem 500 mg/ Syringe 10 mls @ 2 mls/min IV NOW STA; Protocol Stop: 05/11/20 16:50 Last Admin: 05/11/20 17:08 Dose: 2 mls/min Documented by: [id number] Ondansetron HCl (Ondansetron Inj 2 Mg/Ml 2 Ml Vial) 4 mg IV NOW STA Stop: 05/11/20 14:04 Last Admin: 05/11/20 15:32 Dose: 4 mg Documented by: [id number] Medical Decision Making Differential Diagnosis Pancreatitis, bowel obstruction, constipation, dehydration, HECTOR Medical Records Attestation: I reviewed the patient's medical records. The patient was admitted to the hospital earlier this month for acute pancreatit is and chronic kidney disease. Home Medications Current Medication List: was personally reviewed by me Laboratory Data Attestation: I reviewed the patient's lab results. Result diagrams: 05/11/20 14:55 05/11/20 14:55 Lab Results 05/11/20 05/11/20 05/11/20 Range/Units 14:30 14:55 14:55 WBC 10.11 (4.8-10.8) K/uL RBC 3.13 L (4.7-6.1) M/uL Hgb 7.8 L (14.0-18.0) g/dL Hct 26.8 L (42-52) % MCV 85.6 (80-100) fL MCH 24.9 L (25-34) pg MCHC 29.1 L (32-36) g/dL RDW Std Deviation 58.5 H (36.4-46.3) fL RDW Coeff of Scottie 18.5 H (11.5-14.5) % Plt Count 262 (130-400) K/uL MPV 9.0 (7.4-10.4) fL Immature Gran % (Auto) 0.2 % Neut % (Auto) 81.6 % Lymph % (Auto) 7.5 % Payne % (Auto) 9.5 % Eos % (Auto) 1.1 % Baso % (Auto) 0.1 % Neut # (Auto) 8.25 H (1.4-6.5) K/uL Lymph # (Auto) 0.76 L (1.2-3.4) K/uL Payne # (Auto) 0.96 H (0.11-0.59) K/uL Eos # (Auto) 0.11 (0-0.5) K/uL Baso # (Auto) 0.01 (0-0.2) K/uL Immature Gran # (Auto) 0.02 (0.00-0.02) K/uL Hypochromasia Present Ovalocytes 1+ Sodium 136 (136-145) mmol/L Potassium 4.9 (3.5-5.1) mmol/L Chloride 102 (98-107) mmol/L Carbon Dioxide 27 (21-32) mmol/L Anion Gap 7.0 (3-11) BUN 47 H (7-18) mg/dl Creatinine 4.80 H* (0.6-1.4) mg/dl Est Cr Clr Drug Dosing 17.1 ml/min Est GFR ( Amer) 12.9 Est GFR (Non-Af Amer) 11.2 BUN/Creatinine Ratio 9.8 L (10-20) Glucose 95 (70-99) mg/dl Calcium 8.8 (8.5-10.1) mg/dl Total Bilirubin 1.1 H (0.2-1) mg/dl AST 21 (15-37) U/L ALT 13 (12-78) U/L Alkaline Phosphatase 159 H (45-117) U/L Total Protein 5.6 L (6.4-8.2) gm/dl Albumin 1.8 L (3.4-5.0) gm/dl Globulin 3.8 (2.5-4.0) gm/dl Albumin/Globulin Ratio 0.5 L (0.9-2) Lipase 218 (73-393) U/L Urine Color Dark Yellow Urine Appearance Turbid A (Clear) Urine pH 6.5 (4.5-7.5) Ur Specific [place] 1.020 (1.000-1.030) Urine Protein 4+ H (Negative) Urine Glucose (UA) Negative (Negative) Urine Ketones Trace H (Negative) Urine Blood 3+ H (Negative) Urine Nitrite Negative (Negative) Urine Bilirubin Negative (Negative) Urine Urobilinogen Negative (Negative) Ur Leukocyte Esterase 3+ H (Negative) Urine WBC (Auto) >30 H (0-5) /hpf Urine RBC (Auto) 5-10 H (0-4) /hpf U Hyaline Cast (Auto) 0 (0-5) /lpf U Epithel Cells (Auto) >30 H (0-5) /lpf Urine Bacteria (Auto) 2+ H (Negative) Urine Yeast Not Reportable Imaging Data Radiologist's Impression: CT SCAN OF THE ABDOMEN AND PELVIS WITHOUT CONTRAST CLINICAL HISTORY: Abdominal pain. Possible obstruction. COMPARISON STUDY: 04/21/2020 TECHNIQUE: CT scan of the abdomen and pelvis was performed from the lung bases to the proximal femurs. Images are reviewed in the axial, sagittal, and coronal planes. IV contrast was not administered for this examination. A dose lowering technique was utilized adhering to the principles of ALARA. CT DOSE: 1137.65 mGycm FINDINGS: Lower chest: There are bibasilar atelectatic changes. Liver: The unenhanced liver is normal in size, contour, and attenuation. There is no intrahepatic biliary ductal dilatation. Gallbladder: Cholelithiasis. The gallbladder is mildly distended. Spleen: Normal in size and attenuation. Pancreas: There is an 11 cm right-sided abdominal mass which abuts the pancreatic head. There is no significant pancreatic ductal dilatation. Adrenal glands: There is a 21 mm right adrenal gland nodule. Kidneys: There are numerable bilateral renal cysts, many of which are complex. There is an indwelling right-sided nephrostomy tube. There is mild bilateral ureteral dilatation. Bowel: There are no transition zones to indicate bowel obstruction. There is no evidence of acute diverticulitis. The appendix is not visualized with certainty. There are no findings to indicate acute appendicitis. Peritoneum: There is no intraperitoneal free air or abdominal ascites. Vasculature: The abdominal aorta is normal in course and caliber. Adenopathy: There is a large upper abdominal central mass as described above wh ich may represent bulky adenopathy. Pelvic viscera: The bladder appears abnormal. A large intraluminal mass measuring 14 cm is suspected. Skeletal structures: There are no lytic lesions. There are multiple small sclerotic lesions within the pelvis. These remain similar to the prior study. IMPRESSION: 1. No evidence of bowel obstruction. No evidence of free air 2. Large bladder mass measuring 14 cm. 3. Polycystic kidneys. Persistent left-sided hydronephrosis and hydroureter. Persistent right-sided nephrostomy tube. 4. Large bulky mass/adenopathy within the right mid abdomen measuring 11 cm 5. 21 mm right adrenal gland nodule 6. Cholelithiasis. Mild gallbladder distention. 7. No ureteral calculi identified ACT 112: Negative or not required by law. Electronically signed by: Christian Al M.D. 05/11/2020 3:40 PM Dictated: 05/11/20 152 Transcribed: 05/11/201527 [facility] Narrative I did evaluate the patient as noted above. Sending right abdominal pain and vomiting. He is hypotensive. He is a hospice patient but stated that he wanted to receive a full diagnostic work-up. IV access was established. I did treat him with normal saline IV. He was also given Zofran IV. I did place an order for continuous cardiac monitoring. The monitor showed sinus tachycardia at a rate of 102. I did order a urine analysis. He does have evidence of UTI. He previously had ESBL as well as Pseudomonas. He was treated with meropenem IV. I did order and review the patient's blood work as noted in the electronic medical record. He has a hemoglobin of 7.8. He has acute on chronic kidney injury with a creatinine of 4.8. Potassium is within normal limits. I did order a CT of the abdomen and pelvis. I did review the images myself as well as the radiology report as described above. He has no evidence of acute process. He does have a large bulky mass and adenopathy in the right mid abdomen. I did discuss the test results with the patient. He does wish to be hospitalized as he cannot eat at home and does not feel well. I did discuss case with the hospitalist and pillowcase turner. His blood pressure did improve with IV fluids here. Impression & Plan Acute hypotension, Acute UTI, Acute kidney injury superimposed on chronic kidney disease, Abdominal pain, Anemia Discharge Plan Visit Data Chief Complaint: Abdominal Pain Stated Complaint: NAUSEA,ABD PAIN ED Provider: Ugo Beebe Discharge Problem: Acute hypotension, Acute UTI, Acute kidney injury superimposed on chronic kidney disease, Abdominal pain, Anemia Patient Disposition: Admitted As Inpatient Discharge Instructions Interventions: ED Discharge Assessment Last Done: 05/11/20 17:55 Discharge Problem: Abdominal pain Qualifiers: Abdominal location: unspecified location Qualified Code(s): R10.9 - Unspecified abdominal pain Anemia Qualifiers: Anemia type: unspecified type Qualified Code(s): D64.9 - Anemia, unspecified
[2020-05-11] MEDS ORDERED: SODIUM CHLORIDE 0.9% 500 ML IV SCH (14:15)
[2020-05-11 14:43] LABS: Appearance Urine Turbid (Clear); Bacteria Urine Automated 2+ (Negative); Bilirubin Urine Negative (Negative); Blood Urine 3+ (Negative); Color Urine Dark Yellow; Epithelial Cell Urine Auto >30 /lpf (0-5); Glucose Urine UA Negative (Negative); Ketones Urine Trace (Negative); Leukocyte Esterase Urine 3+ (Negative); Nitrite Urine Negative (Negative); Protein Urine 4+ (Negative); Urobilinogen Urine Negative (Negative); WBC Urine Automated >30 /hpf (0-5); pH Urine 6.5 (4.5-7.5)
[2020-05-11 15:05] LABS: Cast Urine Automated 0 /lpf (0-5)
[2020-05-11 15:12] LABS: Basophils # (auto) 0.01 K/uL (0-0.2); Basophils % (auto) 0.1 %; Eosinophils # (auto) 0.11 K/uL (0-0.5); Eosinophils % (auto) 1.1 %; Hematocrit (blood only) 26.8 % (42-52); Hemoglobin 7.8 g/dL (14.0-18.0); Immature Granulocytes # (auto) 0.02 K/uL (0.00-0.02); Immature Granulocytes % (auto) 0.2 %; Lymphocytes # (auto) 0.76 K/uL (1.2-3.4); Lymphocytes % (auto) 7.5 %; Mean Corpuscular Hemoglobin 24.9 pg (25-34); Mean Corpuscular Hgb Conc 29.1 g/dL (32-36); Mean Corpuscular Volume 85.6 fL (80-100); Monocytes # (auto) 0.96 K/uL (0.11-0.59); Monocytes % (auto) 9.5 %; Neutrophils # (auto) 8.25 K/uL (1.4-6.5); Neutrophils % (auto) 81.6 %; Platelet Count 262 K/uL (130-400); RDW Coefficient of Variation 18.5 % (11.5-14.5); RDW Standard Deviation 58.5 fL (36.4-46.3); Red Blood Count 3.13 M/uL (4.7-6.1); White Blood Count 10.11 K/uL (4.8-10.8)
--- NOTE | 2020-05-11 15:41 | CT Scan Report ---
CT SCAN OF THE ABDOMEN AND PELVIS WITHOUT CONTRAST CLINICAL HISTORY: Abdominal pain. Possible obstruction. COMPARISON STUDY: 04/21/2020 TECHNIQUE: CT scan of the abdomen and pelvis was performed from the lung bases to the proximal femurs . Images are reviewed in the axial, sagittal, and coronal planes. IV contrast was not administered fo r this examination. A dose lowering technique was utilized adhering to the principles of ALARA. CT DOSE: 1137.65 mGycm FINDINGS: Lower chest: There are bibasilar atelectatic changes. Liver: The unenhanced liver is normal in size, contour, and attenuation. There is no intrahepatic courtney iary ductal dilatation. Gallbladder: Cholelithiasis. The gallbladder is mildly distended. Spleen: Normal in size and attenuation. Pancreas: There is an 11 cm right-sided abdominal mass which abuts the pancreatic head. There is no s ignificant pancreatic ductal dilatation. Adrenal glands: There is a 21 mm right adrenal gland nodule. Kidneys: There are numerable bilateral renal cysts, many of which are complex. There is an indwelling right-sided nephrostomy tube. There is mild bilateral ureteral dilatation. Bowel: There are no transition zones to indicate bowel obstruction. There is no evidence of acute div erticulitis. The appendix is not visualized with certainty. There are no findings to indicate acute a ppendicitis. Peritoneum: There is no intraperitoneal free air or abdominal ascites. Vasculature: The abdominal aorta is normal in course and caliber. Adenopathy: There is a large upper abdominal central mass as described above which may represent bulk y adenopathy. Pelvic viscera: The bladder appears abnormal. A large intraluminal mass measuring 14 cm is suspected. Skeletal structures: There are no lytic lesions. There are multiple small sclerotic lesions within th e pelvis. These remain similar to the prior study. IMPRESSION: 1. No evidence of bowel obstruction. No evidence of free air 2. Large bladder mass measuring 14 cm. 3. Polycystic kidneys. Persistent left-sided hydronephrosis and hydroureter. Persistent right-sided n ephrostomy tube. 4. Large bulky mass/adenopathy within the right mid abdomen measuring 11 cm 5. 21 mm right adrenal gland nodule 6. Cholelithiasis. Mild gallbladder distention. 7. No ureteral calculi identified ACT 112: Negative or not required by law. Electronically signed by: Christian Al M.D. 05/11/2020 3:40 PM
[2020-05-11 15:45] LABS: Hypochromasia Present; Ovalocytes 1+
[2020-05-11 15:54] LABS: Albumin Globulin Ratio 0.5 (0.9-2); Albumin Level 1.8 gm/dl (3.4-5.0); BUN Creatinine Ratio 9.8 (10-20); Bilirubin,Total 1.1 mg/dl (0.2-1); Calcium 8.8 mg/dl (8.5-10.1); Creatinine Clr Calc Pharmacy 17.1 ml/min; Est GFR (African American) 12.9; Est GFR (Non-African American) 11.2; Globulin 3.8 gm/dl (2.5-4.0); Potassium 4.9 mmol/L (3.5-5.1); Total Protein 5.6 gm/dl (6.4-8.2)
[2020-05-11] MEDS ORDERED: MEROPENEM 500 MG in SYRINGE 0 ML IV STA (16:46)
[2020-05-11] MEDS ORDERED: MEROPENEM CONSULT ACITVE PRN (18:27)
[2020-05-11] MEDS ORDERED: oxyCODONE/ACETAMINOPHEN 5mg/325mg TAB PO PRN (18:27)
[2020-05-11] MEDS ORDERED: MoRPHine SULFATE 4 MG/ML 1 ML CARP\\VIAL IV PRN (18:27)
[2020-05-11] MEDS ORDERED: ACETAMINOPHEN 325 MG TAB PO PRN (18:27)
[2020-05-11] MEDS ORDERED: GLUCAGON FOR INJ 1 MG VIAL SQ PRN (19:19)
[2020-05-11] MEDS ORDERED: DEXTROSE 50% 50 ML SYRINGE IV PRN (19:19)
[2020-05-11] MEDS ORDERED: GLUCOSE 40% GEL 15 GM TUBE PO PRN (19:19)
[2020-05-11] MEDS ORDERED: GLUCOSE 10 TABS/TUBE PO PRN (19:19)
[2020-05-11] MEDS ORDERED: CARBOHYDRATES FOR HYPOGLYCEMIA PO PRN (19:19)
[2020-05-11] MEDS: MEROPENEM 250 MG in SYRINGE 0 ML IV SCH (20:07)
--- NOTE | 2020-05-11 20:15 | History & Physical Report ---
Date of Service May 11, 2020 Assessment & Plan (1) Acute UTI: -Admit to [facility] with telemetry -Patient presenting from home with reports of abdominal pain and nausea -In the ED, UA suggestive of UTI -Review of prior cultures show that patient has grown Enterobacter and ESBL E. coli in the past -S/p meropenem in the ED, will continue with -BP intermittently/borderline low, likely secondary to hypovolemia from dehydration. No leukocytosis, afebrile. Does not appear septic. (2) Chronic kidney disease, stage 4 (severe): (3) Acute kidney injury superimposed on chronic kidney disease: -Creatinine 4.8 (baseline ~ 3.3) -Likely multifactorial due to dehydration from poor p.o. intake, recent increase in diuretic dosing, chronic hydronephrosis hydroureter -S/p NSS 500 cc in ED -Avoid giving additional fluids due to significant lower extremity edema on exam. Albumin significantly low at 1.8, likely contributing to lower extremity edema and third spacing. Consider albumin infusion once renal functions improved. -Hold torsemide for now -Follow-up renal functions in the a.m. (4) Abdominal pain: (5) Nausea: -CT ABD/pelvis known lateral mass and bulky abdominal adenopathy -Recent admission for pancreatitis, lipase 218 today -Likely due to multiple underlying medical conditions, including malignant melanoma -supportive care for now (6) Anemia: -Hgb 7.8, recent baseline ~0.5 -No signs of bleeding, likely due to underlying malignant melanoma (7) Diabetes mellitus, type II: -Hgb A1c 6.0 04/2020 -Glucose 95 on labs, hold home Lantus and utilize NovoLog per protocol while hospitalized (8) Metastatic malignant melanoma: -Patient with history of metastatic melanoma with bladder mass, splenic lesions, bulky abdominal adenopathy -Currently not receiving any active treatments, on hospice at home however patient expresses wishes to be treated for minor medical conditions (9) Adrenal insufficiency: -Continue hydrocortisone and fludrocortisone -BP stable, no role for stress dose steroids at this time (10) Paroxysmal atrial fibrillation: (11) Pacemaker: (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 Patient recently admitted to [facility] 04/21 through 04/24 for management of pancreatitis. Patient has end-stage metastatic melanoma and is currently on home hospice. Patient expresses that he is on hospice in order to reduce medication cost and also to obtain further help in the home. He does wish to continue treatment for minor medical issues. Patient reports that over the past few days, he has had epigastric pain, nausea, mild vomiting. He reports his symptoms are very similar to when he had pancreatitis a couple weeks ago. Patient denies hematemesis or coffee-ground emesis. No diarrhea, dark tarry stools, bright red bleeding per rectum. Denies cough, sputum production, shortness of breath. No chest pain or palpitations. Denies lightheadedness, dizziness, diaphoresis, syncopal events. Patient notes increasing lower extremity edema after eating spaghetti a couple weeks ago. He was instructed to increase his diuretic dose for a few days last week however patient reports no improvement in the edema since doing so. Patient has a left- sided nephrostomy tube in place. Denies pain around the tube or changes in urine. Reports chronic dysuria which is unchanged from baseline. No fevers or chills. In the ED, UA suggest UTI. Creatinine is found to be 4.8 (from baseline ~ 3.3). CT ABD/pelvis negative for bowel obstruction. BPs are intermittently/borderline low, patient otherwise hemodynamically stable. Patient received IVF, IV Zofran, IV meropenem. Allergies Allergy/AdvReac Type Severity Reaction Status Date / Time perflutren AdvReac Intermediate GI SYMPTOMS Verified 05/11/20 15:51 propylene glycol AdvReac Intermediate GI SYMPTOMS Verified 05/11/20 15:52 simvastatin AdvReac Intermediate JOINT AND Verified 05/11/20 15:52 MUSCLE PAIN Home Medications Home Medications Medication Instructions Recorded Confirmed Type cholecalciferol (vitamin D3) 1,000 unit PO QAM 04/20/18 05/11/20 History [Vitamin D3] ondansetron HCl 4 mg tablet 4 mg PO Q8H PRN tab 08/10/18 05/11/20 History acetaminophen [Tylenol Extra 500 mg PO Q6H PRN 05/22/19 05/11/20 History Strength] methylprednisolone sodium succ 125 mg IM DIRECTED PRN 05/22/19 05/11/20 History Lantus Solostar U-100 Insulin 15 unit SC BID 07/02/19 05/11/20 History hydrocortisone 10 mg PO DAILY@1200,1500 07/02/19 05/11/20 History hydrocortisone 20 mg PO DAILY@0500 07/02/19 05/11/20 History calcitriol 0.5 mcg PO HS 09/09/19 05/11/20 History oxycodone-acetaminophen 2 tab PO Q8H PRN 11/26/19 05/11/20 History fludrocortisone 0.1 mg PO DAILY 04/21/20 05/11/20 History sennosides-docusate sodium 3 tab PO QAM 04/21/20 05/11/20 History [Senexon-S] tamsulosin 0.4 mg PO DAILY 04/21/20 05/11/20 History amiodarone [Pacerone] 200 mg PO QPM 05/11/20 05/11/20 History docusate sodium 100 mg PO BID PRN 05/11/20 05/11/20 History lorazepam 1 mg PO Q8H PRN 05/11/20 05/11/20 History morphine concentrate 5 mg PO Q2H PRN 05/11/20 05/11/20 History prochlorperazine maleate 5 mg PO Q6H PRN 05/11/20 05/11/20 History sennosides-docusate sodium 2 tab-cap PO HS 05/11/20 05/11/20 History [Senexon-S] torsemide 20 mg PO 3XWK 05/11/20 05/11/20 History Past Med/Surg History Medical History (Updated 05/11/20 @ 20:29 by CATHY King) Adrenal insufficiency S/P LEFT ADRENALECTOMY- ON CHRONIC HYDROCORTISONE Anemia Anxiety Bladder mass Chronic kidney disease, stage 4 (severe) Degenerative disc disease Diabetes mellitus, type II Dyslipidemia History of immunotherapy Keytruda x 2 Cycles (had to stop after 2nd cycle) Current Opdivo q 2 weeks (currently on hold) - started 05/2017 - 04/2018 History of transfusion of packed red blood cells Hypertension Left bundle branch block Metastatic malignant melanoma Morbid obesity Pacemaker Septic shock Sleep apnea CPAP HS Tachy-oscar syndrome Urinary tract infection due to ESBL Klebsiella Surgical History History of cystoscopy History of esophagogastroduodenoscopy (EGD) History of tooth extraction Hx of total adrenalectomy LEFT SIDE-- HX B/L ADRENAL MASSES; UNDERWENT LAP LEFT ADRENAL MASS EXCISION 04/14/17; PATHOLOGY METASTATIC MALIGNANT MELANOMA WITH VASCULAR INVASION Nephrostomy status Family History Father No problems noted. Mother Colon cancer, Onset Age: 85 Chemo and Resection - Alive and well now Sister Breast cancer, Onset Age: 55 Had Radiation - Alive and well now Sister No problems noted. Sister No problems noted. Sister No problems noted. Sister No problems noted. Brother No problems noted. Son No problems noted. Son No problems noted. Social History Smoking Status: Never smoker Second Hand Exposure: No; Do You Dip or Chew Tobacco: Yes; Tobacco Cessation Education Requested by Patient: No Hx Alcohol Use: No Hx Substance Use: No Preferred Language: Honduran Communication Ability: Effective Visual Impairment: Limited Hearing Ability: Hard of Hearing Poultry Husbandman Required: No Beliefs That Will Affect Care: None marital status: Life Partner Current Living Situation: Family current occupational status: retired current occupation: Retired - [employer] Feels Safe at Home: Yes Safety Concerns: Feels Safe At This Time caffeine: Yes (2 cups of coffee/day ) during the past year weight has: remained stable Assistive Devices: Cane and Glasses Assistive Devices Comment: 2L O2 nasal cannula PRN SOB Review of Systems Review of Systems: ROS per HPI, all other systems reviewed and negative Physical Exam Constitutional: WD/WN, vitals as above Eyes: PERRL, conjunctivae normal, anicteric sclerae ENMT: external ear and nose normal, oropharynx normal Respiratory: normal respiratory effort, lungs clear to auscultation Cardiovascular: Rate/Rhythm: regular rate and regular rhythm Vessels: normal peripheral pulses Extremities: + edema (+3 pitting edema BLE) Gastrointestinal (Abdomen): Inspection/Auscultation: normal bowel sounds Percussion/Palpation: + abdomen tender (RUQ, RLQ, mid lower abdominal) and abdomen soft; no hepatosplenomegaly Musculoskeletal: no cyanosis or clubbing, extremities motor strength 5/5 Skin: no rashes, warm and dry Neurologic: PERRL, EOMI, accommodation nl, no face palsy, no dysarthria Psychiatric: A+Ox3, euthymic affect Genitourinary: Left-sided nephrostomy tube in place Results & Data Results & Data ([facility]) Vital Signs (Past 12 Hours) Vital Signs Temp Pulse Pulse Pulse Resp BP BP 05/11/20 19:00 36.9 C 79 17 05/11/20 18:00 36.5 C 90 20 05/11/20 17:30 16 122/59 L 05/11/20 17:10 05/11/20 17:09 79 18 118/55 L 05/11/20 17:01 75 05/11/20 17:00 75 118/55 L 05/11/20 16:31 79 16 05/11/20 16:30 78 13 119/55 L 05/11/20 16:01 83 17 05/11/20 16:00 83 16 111/56 L 05/11/20 15:34 84 20 104/55 L 05/11/20 15:06 60 18 104/50 L 05/11/20 14:32 05/11/20 13:36 36.7 C 104 H 20 86/49 L BP Pulse Ox 05/11/20 19:00 109/69 99 05/11/20 18:00 99/62 L 99 05/11/20 17:30 100 05/11/20 17:10 100 05/11/20 17:09 86 L 05/11/20 17:01 95 05/11/20 17:00 93 05/11/20 16:31 96 05/11/20 16:30 95 05/11/20 16:01 95 05/11/20 16:00 96 05/11/20 15:34 96 05/11/20 15:06 96 05/11/20 14:32 92 05/11/20 13:36 100 Code Status & VTE Plan Code Status Patient is a DNR as per POLST form that was reviewed in patient's [facility] record. VTE Prophylaxis Plan VTE Prophylaxis will be ordered: Yes Supervising Physician Co-Signing Physician Notes Attending Addendum: care coordinated with CATHY Patino please refer to her notes for full details, I agree with her notes patient seen and examined, records reviewed by myself as well on exam, patient seen resting, sitting up in bed, not in distress Appears weak but awake, oriented x3 Reports vague abdominal discomfort mostly in the central abdominal region Mild nausea Reports not being able to eat for the past 2 to 3 days due to decreased appetite reports constipation for 3 days no other symptoms VS noted and reviewed oriented x 2, not in distress, speaks in sentences with no effort nor accessory muscle use Appears weak normal rate, regular rhythm, no murmurs clear breath sounds bilaterally Obese, non distended, soft, mild tenderness on the central abdominal region Grade 1 bilateral lower extremity edema, no erythema, warmth no neuro deficits WBC 10.11 Hg [address] abdomen pelvis 1. No evidence of bowel obstruction. No evidence of free air 2. Large bladder mass measuring 14 cm. 3. Polycystic kidneys. Persistent left-sided hydronephrosis and hydroureter. Persistent right-sided nephrostomy tube. 4. Large bulky mass/adenopathy within the right mid abdomen measuring 11 cm 5. 21 mm right adrenal gland nodule 6. Cholelithiasis. Mild gallbladder distention. 7. No ureteral calculi identified ASSESSMENT AND PLAN Abdominal pain, nausea in the setting of metastatic melanoma Likely secondary to bulky adenopathy Possible component of gastritis, constipation --CT abdomen pelvis: No bowel obstruction; (+) bulky adenopathy, large bladder mass --As needed IV morphine Start bowel regimen Start famotidine --Palliative care consult Acute kidney injury on CKD stage IV --Likely secondary dehydration secondary to poor oral intake for the past 2 to 3 days --Given IV fluids in the ER Hold additional IV fluid secondary to bilateral lower leg edema, hypoalbuminemia Hold usual Lasix --Repeat BUN/creatinine in the morning If no improvement may need to consider nephrology consultation Possible UTI --UA indicative of UTI Follow-up urine cultures Start meropenem IV, based on previous urine culture other diagnoses and plan of care as per CATHY Calabrese MD (1) Anemia Anemia type: unspecified type Qualified Code(s): D64.9 - Anemia, unspecified
[2020-05-11] MEDS: PROMETHAZINE HCL 12.5 MG in SODIUM CHLORIDE 0.9% 50 ML IV PRN (21:17)
[2020-05-11] MEDS: AMIODARONE 200 MG TAB PO SCH (21:42)
[2020-05-11] MEDS: CALCITRIOL 0.25 MCG CAPSULE PO SCH (21:43)
[2020-05-11] MEDS: INSULIN ASPART 100 UNITS/ML 3 ML PEN SC SCH (21:43)
[2020-05-11] MEDS: FAMOTIDINE 20 MG in SYRINGE 3 ML IV SCH (23:41)
[2020-05-12] MEDS: HYDROCORTISONE 10 MG TAB PO SCH ×3 (06:08→15:55)
[2020-05-12] MEDS: MEROPENEM 250 MG in SYRINGE 0 ML IV SCH ×2 (07:24→19:20)
[2020-05-12] MEDS: PROMETHAZINE HCL 12.5 MG in SODIUM CHLORIDE 0.9% 50 ML IV PRN (07:24)
[2020-05-12] MEDS: DOCUSATE SODIUM 100 MG CAP PO SCH ×2 (07:47→21:10)
[2020-05-12] MEDS: CHOLECALCIFEROL 1,000 UNITS 25 MCG TAB PO SCH (07:48)
[2020-05-12] MEDS: TAMSULOSIN HCL 0.4 MG CAP PO SCH (07:48)
[2020-05-12] MEDS: POLYETHYLENE (MIRALAX) 17 GM PACK PO SCH (07:48)
[2020-05-12] MEDS: FLUDROCORTISONE ACETATE 0.1 MG TAB PO SCH (07:48)
[2020-05-12 08:38] LABS: Hematocrit (blood only) 27.1 % (42-52); Mean Corpuscular Hemoglobin 25.3 pg (25-34); Mean Corpuscular Hgb Conc 29.5 g/dL (32-36); Mean Corpuscular Volume 85.8 fL (80-100); Platelet Count 285 K/uL (130-400); RDW Coefficient of Variation 18.5 % (11.5-14.5); RDW Standard Deviation 57.7 fL (36.4-46.3); Red Blood Count 3.16 M/uL (4.7-6.1); White Blood Count 7.64 K/uL (4.8-10.8)
[2020-05-12 08:58] LABS: BUN Creatinine Ratio 10.9 (10-20); Calcium 8.9 mg/dl (8.5-10.1); Creatinine Clr Calc Pharmacy 16.9 ml/min; Est GFR (African American) 12.3; Est GFR (Non-African American) 10.6; Potassium 4.6 mmol/L (3.5-5.1)
[2020-05-12] MEDS: INSULIN ASPART 100 UNITS/ML 3 ML PEN SC SCH ×4 (09:30→21:09)
--- NOTE | 2020-05-12 16:08 | Hospitalist Progress Note ---
Date of Service May 12, 2020 Assessment & Plan (1) Acute UTI: Present on admission with abdominal pain and nausea In the ED, UA suggestive of UTI Review of prior cultures show that patient has grown Enterobacter and ESBL E. coli in the past Starting IV meropenem in the ED, Will continue for now Continue Meropenem IV for now Follow up with urine cx (2) Chronic kidney disease, stage 4 (severe): (3) Acute kidney injury superimposed on chronic kidney disease: Creatinine 4.8 on admission (baseline ~ 3.3) CT abd/pelvis showed large bladder mass measuring 14 cm. Polycystic kidneys. Persistent left-sided hydronephrosis and hydroureter. Persistent right-sided nephrostomy tube. Large bulky mass/adenopathy within the right mid abdomen measuring 11 cm. 21 mm right adrenal gland nodule Received IV NSS in ED Continue to hold torsemide now Continue BMP (4) Abdominal pain: (5) Nausea: CT ABD/pelvis showed lateral mass and bulky abdominal adenopathy Lipase 218 on admission Diet advanced as tolerated Stable (6) Anemia: Hgb 7.8, recent baseline ~8.5 No signs of bleeding, likely due to underlying malignant melanoma Hgb 8 today (7) Diabetes mellitus, type II: Hgb A1c 6.0 04/2020 Glucose 95 on labs, hold home Lantus and utilize NovoLog per protocol while hospitalized (8) Metastatic malignant melanoma: Patient with history of metastatic melanoma with bladder mass, splenic lesions, bulky abdominal adenopathy palliative care on board (9) Adrenal insufficiency: Continue hydrocortisone and fludrocortisone BP stable, no role for stress dose steroids at this time (10) Paroxysmal atrial fibrillation: (11) Pacemaker: (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 Not anticoagulated secondary to history of hematuria and anemia (13) DVT prophylaxis: SCDs due to large bladder mass and anemia Admission and Anticipated Discharge Date Admission Date: May 11, 2020 Subjective Pt was seen and examined Lying in bed with no distress Pt said that he feels much better He said that he does not have any abdominal pain and nausea today He said that he wants to eat mash potato Denies any chest pain, palpitation, dizziness and SOB Physical Exam Physical Exam: General- No acute distress Head- atraumatic Eyes- PERRL, EOMI, ENT- oropharynx clear Neck- supple, no JVD Lungs- clear to auscultation Heart- regular rhythm; no murmur Abdomen- normal bowel sounds, soft, nontender Extremities- no calf tenderness, +pitting edema Neuro- alert, oriented x 3; PERRL, EOMI; no facial palsy; no dysarthria Skin- warm & dry Results & Data Results & Data ([facility]) Vital Signs (Past 12 Hours) Vital Signs Temp Pulse Pulse Resp BP Pulse Ox 05/12/20 15:46 36.5 C 64 18 100/63 99 05/12/20 15:00 62 05/12/20 11:53 36.8 C 76 18 97/61 L 96 05/12/20 08:01 36.6 C 73 18 126/70 98 05/12/20 07:29 82 (1) Anemia Anemia type: unspecified type Qualified Code(s): D64.9 - Anemia, unspecified
[2020-05-12] MEDS: CALCITRIOL 0.25 MCG CAPSULE PO SCH (21:09)
[2020-05-12] MEDS: AMIODARONE 200 MG TAB PO SCH (21:10)
[2020-05-12] MEDS: FAMOTIDINE 20 MG in SYRINGE 3 ML IV SCH (21:13)
[2020-05-12] MEDS ORDERED: LORazepam 0.5 MG TAB PO PRN (21:17)
[2020-05-12] MEDS ORDERED: oxyCODONE/ACETAMINOPHEN 5mg/325mg TAB PO PRN (21:38)
[2020-05-13] MEDS: HYDROCORTISONE 10 MG TAB PO SCH ×2 (05:02→12:27)
[2020-05-13] MEDS: MEROPENEM 250 MG in SYRINGE 0 ML IV SCH (06:39)
[2020-05-13 07:15] VITALS: BP 127/67; PULSE 68; TEMP 98.1; O2SAT 100
[2020-05-13 07:23] LABS: Hematocrit (blood only) 27.5 % (42-52); Hemoglobin 7.9 g/dL (14.0-18.0); Mean Corpuscular Hemoglobin 24.6 pg (25-34); Mean Corpuscular Hgb Conc 28.7 g/dL (32-36); Mean Corpuscular Volume 85.7 fL (80-100); Mean Platelet Volume 8.9 fL (7.4-10.4); Platelet Count 280 K/uL (130-400); RDW Coefficient of Variation 18.2 % (11.5-14.5); RDW Standard Deviation 57.4 fL (36.4-46.3); Red Blood Count 3.21 M/uL (4.7-6.1); White Blood Count 6.58 K/uL (4.8-10.8)
[2020-05-13 07:43] LABS: BUN Creatinine Ratio 11.3 (10-20); Creatinine Clr Calc Pharmacy 17.2 ml/min; Est GFR (African American) 12.4; Est GFR (Non-African American) 10.7; Potassium 4.2 mmol/L (3.5-5.1)
[2020-05-13] MEDS: CHOLECALCIFEROL 1,000 UNITS 25 MCG TAB PO SCH (07:46)
[2020-05-13] MEDS: DOCUSATE SODIUM 100 MG CAP PO SCH (07:46)
[2020-05-13] MEDS: TAMSULOSIN HCL 0.4 MG CAP PO SCH (07:46)
[2020-05-13] MEDS: FLUDROCORTISONE ACETATE 0.1 MG TAB PO SCH (07:46)
[2020-05-13] MEDS: POLYETHYLENE (MIRALAX) 17 GM PACK PO SCH (07:47)
[2020-05-13] MEDS: INSULIN ASPART 100 UNITS/ML 3 ML PEN SC SCH ×2 (08:37→12:27)
--- NOTE | 2020-05-13 12:35 | Hospitalist Progress Note ---
Date of Service May 13, 2020 Assessment & Plan (1) Abnormal urinalysis: Present on admission with abdominal pain and nausea In the ED, in the ER UA positive for nitrite/Leukocytes and bacteria Review of prior cultures show that patient has grown Enterobacter and ESBL E. coli in the past Urine cx grew multiple abx (mostly contamination). He said that he came to the hospital with the mejia cath On IV meropenem on day#3, will d/c abx on discharge since urine cx seems to be contaminated and pt on day #3 Afebrile and no leukocytosis (2) Chronic kidney disease, stage 4 (severe): (3) Acute kidney injury superimposed on chronic kidney disease: Creatinine 4.8 on admission (baseline ~ 3.3), Creatinine 4.[address] abd/pelvis showed large bladder mass measuring 14 cm. Polycystic kidneys. Persistent left-sided hydronephrosis and hydroureter. Persistent right-sided nephrostomy tube. Large bulky mass/adenopathy within the right mid abdomen measuring 11 cm. 21 mm right adrenal gland nodule Received IV NSS in ED Continue to hold torsemide now Pt would go back to hospice for his poor prognosis cancer, not a candidate for HD Continue to hold Torsemide during the hospital course Pt and son understood that resume diuretic could worsening the kidney fuction and hold the diuretic can accumulate more fluid leading to volume overload Diuretic can resume PRN for symptoms management if starting to develop SOB (4) Abdominal pain: (5) Nausea: CT ABD/pelvis showed lateral mass and bulky abdominal adenopathy Lipase 218 on admission Tolerated his diet Denies any symptoms Stable (6) Anemia: Hgb 7.8, recent baseline ~8.5 No signs of bleeding, likely due to underlying malignant melanoma Hgb 9 today (7) Diabetes mellitus, type II: Hgb A1c 6.0 04/2020 Glucose 95 on labs, hold home Lantus and utilize NovoLog per protocol while hospitalized (8) Metastatic malignant melanoma: Patient with history of metastatic melanoma with bladder mass, splenic lesions, bulky abdominal adenopathy palliative care on board (9) Adrenal insufficiency: Continue hydrocortisone and fludrocortisone BP stable, no role for stress dose steroids at this time (10) Paroxysmal atrial fibrillation: (11) Pacemaker: (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 Not anticoagulated secondary to history of hematuria and anemia Disposition Will discharge to home hospice Continue mejia catheter (13) DVT prophylaxis: SCDs due to large bladder mass and anemia Admission and Anticipated Discharge Date Admission Date: May 11, 2020 Subjective Pt was seen and examined Lying in bed with no distress Pt said that he feels much better compare to when he came He said that he tolerated his diet Spoke to son and provided with update Pt would like to go back to home hospice on discharge Case management spoke to son and notified hospice nurse He said that he did not have a BM yet for about 2 days Denies any chest pain, palpitation, dizziness and SOB Physical Exam Physical Exam: General- No acute distress Head- atraumatic Eyes- PERRL, EOMI, ENT- oropharynx clear Neck- supple, no JVD Lungs- clear to auscultation Heart- regular rhythm; no murmur Abdomen- normal bowel sounds, soft, nontender Extremities- no calf tenderness, +pitting edema Neuro- alert, oriented x 3; PERRL, EOMI; no facial palsy; no dysarthria Skin- warm & dry Results & Data Results & Data ([facility]) Vital Signs (Past 12 Hours) Vital Signs Temp Pulse Pulse Resp BP BP Pulse Ox 05/13/20 07:24 68 05/13/20 07:15 36.7 C 68 18 127/67 100 05/13/20 03:43 36.5 C 57 L 18 107/59 L 98 (1) Anemia Anemia type: unspecified type Qualified Code(s): D64.9 - Anemia, unspecified
--- NOTE | 2020-05-13 21:32 | Electrocardiogram Report ---
Test Reason : Blood Pressure : / mmHG Vent. Rate : 071 BPM Atrial Rate : 071 BPM P-R Int : 176 ms QRS Dur : 148 ms QT Int : 434 ms P-R-T Axes : 037 -05 099 degrees QTc Int : 471 ms Normal sinus rhythm Left bundle branch block Abnormal ECG When compared with ECG of 21-APR-2020 11:38, Vent. rate has decreased BY 46 BPM Confirmed by Milton Browning ([id number]) on 05/13/2020 9:31:45 PM Referred By: REFERRED SELF Confirmed By:Milton Browning
--- NOTE | 2020-05-14 09:33 | Discharge Summary ---
Date of Service May 13, 2020 Admission HPI Per Admitting Provider 75-year-old male with PMH metastatic melanoma, CKD stage IV, DM type II, adrenal insufficiency, and other problems listed below who presents the ED for evaluation of nausea and abdominal pain. Patient recently admitted to [facility] 04/21 through 04/24 for management of pancreatitis. Patient has end-stage metastatic melanoma and is currently on home hospice. Patient expresses that he is on hospice in order to reduce medication cost and also to obtain further help in the home. He does wish to continue treatment for minor medical issues. Patient reports that over the past few days, he has had epigastric pain, nausea, mild vomiting. He reports his symptoms are very similar to when he had pancreatitis a couple weeks ago. Patient denies hematemesis or coffee-ground emesis. No diarrhea, dark tarry stools, bright red bleeding per rectum. Denies cough, sputum production, shortness of breath. No chest pain or palpitations. Denies lightheadedness, dizziness, diaphoresis, syncopal events. Patient notes increa sing lower extremity edema after eating spaghetti a couple weeks ago. He was instructed to increase his diuretic dose for a few days last week however patient reports no improvement in the edema since doing so. Patient has a left- sided nephrostomy tube in place. Denies pain around the tube or changes in urine. Reports chronic dysuria which is unchanged from baseline. No fevers or chills. In the ED, UA suggest UTI. Creatinine is found to be 4.8 (from baseline ~ 3.3). CT ABD/pelvis negative for bowel obstruction. BPs are intermittently/borderline low, patient otherwise hemodynamically stable. Patient received IVF, IV Zofran, IV meropenem. Admission Exam Per Admitting Provider Constitutional: WD/WN, vitals as above Eyes: PERRL, conjunctivae normal, anicteric sclerae ENMT: external ear and nose normal, oropharynx normal Respiratory: normal respiratory effort, lungs clear to auscultation Cardiovascular: regular rate and regular rhythm Vessels: normal peripheral pulses Extremities: + edema (+3 pitting edema BLE) Gastrointestinal: Inspection/Auscultation: normal bowel sounds Percussion/Palpation: + abdomen tender (RUQ, RLQ, mid lower abdominal) and abdomen soft; no hepatosplenomegaly Musculoskeletal: no cyanosis or clubbing, extremities motor strength 5/5 Skin: no rashes, warm and dry Neurologic: PERRL, EOMI, accommodation nl, no face palsy, no dysarthria Psychiatric: A+Ox3, euthymic affect Genitourinary: Left-sided nephrostomy tube in place Principal Diagnosis Abnormal urinalysis: Chronic kidney disease, stage 4 (severe): Acute kidney injury superimposed on chronic kidney disease: Abdominal pain: Nausea: Anemia: Diabetes mellitus, type II: Discharge Exam General- No acute distress Head- atraumatic Eyes- PERRL, EOMI, ENT- oropharynx clear Neck- supple, no JVD Lungs- clear to auscultation Heart- regular rhythm; no murmur Abdomen- normal bowel sounds, soft, nontender Extremities- no calf tenderness, +pitting edema Neuro- alert, oriented x 3; PERRL, EOMI; no facial palsy; no dysarthria Skin- warm & dry Discharge Data Allergies Allergy/AdvReac Type Severity Reaction Status Date / Time perflutren AdvReac Intermediate GI SYMPTOMS Verified 05/11/20 15:51 propylene glycol AdvReac Intermediate GI SYMPTOMS Verified 05/11/20 15:52 simvastatin AdvReac Intermediate JOINT AND Verified 05/11/20 15:52 MUSCLE PAIN Consultations 05/11/20 16:54 ED Decision to Admit Stat 05/11/20 18:27 Consult Case Management - Discharge Planning Routine 05/11/20 22:29 Consult Palliative Care Routine Ordered Studies 05/11/20 14:03 CT abd pelvis wo con Stat CT SCAN OF THE ABDOMEN AND PELVIS WITHOUT CONTRAST CLINICAL HISTORY: Abdominal pain. Possible obstruction. COMPARISON STUDY: 04/21/2020 TECHNIQUE: CT scan of the abdomen and pelvis was performed from the lung bases to the proximal femurs. Images are reviewed in the axial, sagittal, and coronal planes. IV contrast was not administered for this examination. A dose lowering technique was utilized adhering to the principles of ALARA. CT DOSE: 1137.65 mGycm FINDINGS: Lower chest: There are bibasilar atelectatic changes. Liver: The unenhanced liver is normal in size, contour, and attenuation. There is no intrahepatic biliary ductal dilatation. Gallbladder: Cholelithiasis. The gallbladder is mildly distended. Spleen: Normal in size and attenuation. Pancreas: There is an 11 cm right-sided abdominal mass which abuts the pancreatic head. There is no significant pancreatic ductal dilatation. Adrenal glands: There is a 21 mm right adrenal gland nodule. Kidneys: There are numerable bilateral renal cysts, many of which are complex. There is an indwelling right-sided nephrostomy tube. There is mild bilateral ureteral dilatation. Bowel: There are no transition zones to indicate bowel obstruction. There is no evidence of acute diverticulitis. The appendix is not visualized with certainty. There are no findings to indicate acute appendicitis. Peritoneum: There is no intraperitoneal free air or abdominal ascites. Vasculature: The abdominal aorta is normal in course and caliber. Adenopathy: There is a large upper abdominal central mass as described above which may represent bulky adenopathy. Pelvic viscera: The bladder appears abnormal. A large intraluminal mass measuring 14 cm is suspected. Skeletal structures: There are no lytic lesions. There are multiple small sclerotic lesions within the pelvis. These remain similar to the prior study. IMPRESSION: 1. No evidence of bowel obstruction. No evidence of free air 2. Large bladder mass measuring 14 cm. 3. Polycystic kidneys. Persistent left-sided hydronephrosis and hydroureter. Persistent right-sided nephrostomy tube. 4. Large bulky mass/adenopathy within the right mid abdomen measuring 11 cm 5. 21 mm right adrenal gland nodule 6. Cholelithiasis. Mild gallbladder distention. 7. No ureteral calculi identified ACT 112: Negative or not required by law. Electronically signed by: Christian Al M.D. 05/11/2020 3:40 PM Dictated: 05/11/20 1528 Transcribed: 05/11/20 1528 Hospital Course (1) Abnormal urinalysis: Present on admission with abdominal pain and nausea In the ED, in the ER UA positive for nitrite/Leukocytes and bacteria Review of prior cultures show that patient has grown Enterobacter and ESBL E. coli in the past Urine cx grew multiple abx (mostly contamination). He said that he came to the hospital with the mejia cath On IV meropenem on day#3, will d/c abx on discharge since urine cx seems to be contaminated and pt on day #3 Afebrile and no leukocytosis (2) Chronic kidney disease, stage 4 (severe): (3) Acute kidney injury superimposed on chronic kidney disease: Creatinine 4.8 on admission (baseline ~ 3.3), Creatinine 4.[address] abd/pelvis showed large bladder mass measuring 14 cm. Polycystic kidneys. Persistent left-sided hydronephrosis and hydroureter. Persistent right-sided nephrostomy tube. Large bulky mass/adenopathy within the right mid abdomen measuring 11 cm. 21 mm right adrenal gland nodule Received IV NSS in ED Continue to hold torsemide now Pt would go back to hospice for his poor prognosis cancer, not a candidate for HD Continue to hold Torsemide during the hospital course Pt and son understood that resume diuretic could worsening the kidney fuction and hold the diuretic can accumulate more fluid leading to volume overload Diuretic can resume PRN for symptoms management if starting to develop SOB (4) Abdominal pain: (5) Nausea: CT ABD/pelvis showed lateral mass and bulky abdominal adenopathy Lipase 218 on admission Tolerated his diet Denies any symptoms Stable (6) Anemia: Hgb 7.8, recent baseline ~8.5 No signs of bleeding, likely due to underlying malignant melanoma Hgb 9 today (7) Diabetes mellitus, type II: Hgb A1c 6.0 04/2020 Glucose 95 on labs, hold home Lantus and utilize NovoLog per protocol while hospitalized (8) Metastatic malignant melanoma: Patient with history of metastatic melanoma with bladder mass, splenic lesions, bulky abdominal adenopathy palliative care on board (9) Adrenal insufficiency: Continue hydrocortisone and fludrocortisone BP stable, no role for stress dose steroids at this time (10) Paroxysmal atrial fibrillation: (11) Pacemaker: (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 Not anticoagulated secondary to history of hematuria and anemia Disposition Will discharge to home hospice Continue mejia catheter (13) DVT prophylaxis: SCDs due to large bladder mass and anemia Total Time Total Time Spent Total Time Spent (In Minutes): 35 minutes Total Time Includes: Examination of the Patient, Discharge Planning, Medication Reconciliation, Communication With Other Providers and Other Discharge Plan Discharge Items Patient Disposition: Hospice - Home Reason For Visit: HECTOR, UTI Discharge Diagnosis: Abnormal urinalysis: Chronic kidney disease, stage 4 (severe): Acute kidney injury superimposed on chronic kidney disease: Abdominal pain: Nausea: Anemia: Diabetes mellitus, type II: Activity: Resume your previous activity Non-emergency contact: Primary Care Provider Call non-emergency contact if: you have any medication questions Follow-up/Referrals: Prasad Mcguire DO [Primary Care Provider] - Diet: Carb Consistent or DM2 Addtl Attending Provider Instructions: Discharge home with hospice Follow up with your primary care provider Continue to hold torsemide for tomorrow, but if develops shortness of breath ok to resume it Check BMP on Thursday (if able to check it while in hospice ) Continue oxygen supplement Fall precaution Pending Studies at Discharge: No Stand-Alone Forms: My [facility] Medications and DC Order Prescriptions: Continued ondansetron HCl 4 mg tablet 4 mg PO Q8H PRN (Reason: Nausea) RF: 0 cholecalciferol (vitamin D3) [Vitamin D3] 1,000 unit Capsule 1,000 unit PO QAM RF: 0 acetaminophen [Tylenol Extra Strength] 500 mg Tablet 500 mg PO Q6H PRN (Reason: Pain) RF: 0 methylprednisolone sodium succ 125 mg Recon Soln 125 mg IM DIRECTED PRN (Reason: EMERGENCY CASE) RF: 0 sennosides-docusate sodium [Senexon-S] 8.6-50 mg tablet 3 tab PO QAM RF: 0 tamsulosin 0.4 mg capsule 0.4 mg PO DAILY RF: 0 fludrocortisone 0.1 mg tablet 0.1 mg PO DAILY RF: 0 lorazepam 1 mg Tablet 1 mg PO Q8H PRN (Reason: Anxiety) RF: 0 torsemide 20 mg tablet 20 mg PO 3XWK RF: 0 docusate sodium 100 mg Capsule 100 mg PO BID PRN (Reason: Constipation) RF: 0 amiodarone [Pacerone] 200 mg Tablet 200 mg PO QPM RF: 0 sennosides-docusate sodium [Senexon-S] 8.6-50 mg Tablet 2 tab-cap PO HS RF: 0 morphine concentrate 100 mg/5 mL (20 mg/mL) solution 5 mg PO Q2H PRN (Reason: Pain) RF: 0 prochlorperazine maleate 5 mg tablet 5 mg PO Q6H PRN (Reason: Nausea) RF: 0 hydrocortisone 10 mg tablet 10 mg PO DAILY@1200,1500 RF: 0 hydrocortisone 10 mg tablet 20 mg PO DAILY@0500 RF: 0 Lantus Solostar U-100 Insulin 100 unit/mL (3 mL) insulin pen 15 unit SC BID RF: 0 calcitriol 0.5 mcg capsule 0.5 mcg PO HS RF: 0 oxycodone-acetaminophen 5-325 mg tablet 2 tab PO Q8H PRN (Reason: Pain) RF: 0 Discharge Orders: Discharge Order (Routine); Ordered 05/13/20 Ordered By: Ulisses Torres Admission Data Admit Date/Time: 05/11/20 17:03 Attending Provider: Ulisses Torres Admit Provider: Dean Calabrese Primary Care Provider: Prasad Mcguire Other Providers: Dean Calabrese ; Mine Carranza ; [facility] Other Interventions: Discharge Summary Assessment (RN) Last Done: 05/13/20 13:31
== END 2020-05-13 14:00 | disposition hospice, home (50) | DRG 683 ==
LOC: ED 13:34 → SUATTDRO 17:03 → 2N 17:03

== ENCOUNTER 2020-06-12 14:49 | Inpatient (IN) ==
[2020-06-12] MEDS ORDERED: SODIUM CHLORIDE 0.9% 1000ML 1,000 ML IV ONE (15:14)
[2020-06-12] MEDS ORDERED: TXA 10% Non-IV Routes 100 MG/ML VIAL TOP ONE (15:16)
[2020-06-12] MEDS ORDERED: fentaNYL citrate 100 MCG/2 ML VIAL IV STA (15:28)
--- NOTE | 2020-06-12 15:28 | Emergency Department Note ---
Impression & Plan Hematuria, Dehydration, Metastatic malignant melanoma, Weakness, Total bilirubin, elevated ED Provider Note Provider: Reed Desai MD DATE OF SERVICE:06/12/2020 CHIEF COMPLAINT: Hematuria HISTORY OF PRESENT ILLNESS: Patient is a 75-year-old gentleman with history of diabetes, CKD, paroxysmal atrial fibrillation not on anticoagulation, adrenal insufficiency, and metastatic melanoma with known bladder mass on home hospice presenting via ambulance today due to china hematuria. Patient has had some slight hematuria in the past and was admitted in April of this year about a month ago with a UTI. Reportedly is finishing her last dose of antibiotics for UTI today but noted today bright red blood from his penis. Does have a right- sided nephrostomy that was somewhat bloody earlier but now is more brownish in color. Patient denies any trauma. States he has some swelling in his belly in his lower feet but states he feels somewhat thirsty. Patient states he is constipated and having some mild abdominal discomfort. REVIEW OF SYSTEMS: A total of 10 review of systems was obtained and negative except as stated above in the HPI. PAST MEDICAL HISTORY: As noted above MEDICATIONS: Reviewed home medication list not currently including anticoagulants. SOCIAL HISTORY: Lives at home with , currently on home hospice PHYSICAL EXAM: GENERAL: alert and oriented in no acute distress on stretcher Head: normocephalic and atraumatic EYES: No injection but noted icterus NECK: Trachea midline. Supple. ENT: Mucous membranes pink and somewhat dry LUNGS: Airway patent. No retractions. HEART: Regular rate and rhythm. No chest wall tenderness ABDOMEN: Soft and non-tender with some mild abdominal fullness, without guarding or rebound. Right nephrostomy tube noted in place with some brownish discharge. : With nurse present blood clot was cleaned with peroxide and notes some trace amount of dark red blood from the tip of the penis. SKIN: Warm dry with jaundice noted EXTREMITIES: 2+ lower extremity swelling. NEUROLOGICAL: No focal deficits. No aphasia. No facial droop or slurred speech. Patient's laboratory studies and imaging reviewed. Differential includes Testicular torsion, mass, infection, hernia, hydrocele, epididymitis, STI, trauma, intra-abdominal process, as well as other pathologies. IMPRESSION/MEDICAL DECISION MAKING: Patient presents for symptom control related to significant hematuria. Patient has a large bladder mass likely etiology not anticoagulation. Limited options at this time for control of the hematuria. Has nephrostomy tube that is draining at this point but with some slightly brownish urine.. Discussed with patient and he wished for IV hydration and some pain medicine as well as basic blood work. Discussed patient options such as proceeded with Bang catheter placement for bladder irrigation and irrigation with some TXA to see if this will help with his hematuria. Patient had no recurrence of hematuria in the intervening time of my initial exam and thus declined catheter placement. Patient appears jaundiced and with some lower extremity swelling likely secondary to his ongoing oncological process. Recently on antibiotics and thus low suspicion for UTI at this time. Given some IV hydration here. Patient compl ained a little bit of mild abdominal discomfort and offered fentanyl but he declined. He later accepted the fentanyl for some diffuse abdominal pain. Patient son later arrives. Hemoglobin actually somewhat improved today on basic labs. Renal function just slightly worsened. Mild hyperkalemia noted. Liver functions are elevated and bilirubin is 19 which appears to be new. Concerns related to oncological process. Discussed with both the patient and the patient's son unfortunately this is l ikely sequelae of the bladder mass and there are limited options for definite treatment here. Patient states he would like to go home if possible and does have some medical supplies at home hospice with hospital bed and oxygen. Did have case management meet with the patient to reach out to hospice group and try to increase cares the patient receives. Patient states he is feeling weak enough that he is having trouble getting out of bed and taking care of himself. Patient again continued decline Bang catheter. Case management discussion with the hospice team stated that they are able to provide nursing care starting tomorrow during the week (except this weekend due to the close timing and proximity of the holiday to the request) and then at least 6 days a week after provide care at home. Discussed with the patient. He and son are concerned about his ability to be cared for overnight particularly if he needs changed regarding stooling at home by or other family members and wish to stay in the hospital overnight. Discussed with the hospitalist service. DIAGNOSIS: Hematuria, dehydration, weakness, elevated bilirubin, malignant melanoma DISPOSITION: Hospitalist will evaluate Past Med/Surg History Medical History (Updated 06/12/20 @ 18:47 by Reed Desai M.D.) Adrenal insufficiency S/P LEFT ADRENALECTOMY- ON CHRONIC HYDROCORTISONE Anemia Anxiety Bladder mass Chronic kidney disease, stage 4 (severe) Degenerative disc disease Diabetes mellitus, type II Dyslipidemia History of immunotherapy Keytruda x 2 Cycles (had to stop after 2nd cycle) Current Opdivo q 2 weeks (currently on hold) - started 05/2017 - 04/2018 History of transfusion of packed red blood cells Hypertension Left bundle branch block Metastatic malignant melanoma Morbid obesity Pacemaker Septic shock Sleep apnea CPAP HS Tachy-oscar syndrome Urinary tract infection due to ESBL Klebsiella Surgical History History of cystoscopy History of esophagogastroduodenoscopy (EGD) History of tooth extraction Hx of total adrenalectomy LEFT SIDE-- HX B/L ADRENAL MASSES; UNDERWENT LAP LEFT ADRENAL MASS EXCISION 04/14/17; PATHOLOGY METASTATIC MALIGNANT MELANOMA WITH VASCULAR INVASION Nephrostomy status Family History Father No problems noted. Mother Colon cancer, Onset Age: 85 Chemo and Resection - Alive and well now Sister Breast cancer, Onset Age: 55 Had Radiation - Alive and well now Sister No problems noted. Sister No problems noted. Sister No problems noted. Sister No problems noted. Brother No problems noted. Son No problems noted. Son No problems noted. Social History Smoking Status: Never smoker Second Hand Exposure: No; Hx Alcohol Use: No Hx Substance Use: No Preferred Language: Maltese Communication Ability: Effective Visual Impairment: Limited Hearing Ability: Hard of Hearing Pairer Required: No Beliefs That Will Affect Care: None marital status: Single Current Living Situation: Family current occupational status: retired current occupation: Retired - [employer] Feels Safe at Home: Yes caffeine: Yes (2 cups of coffee/day ) during the past year weight has: remained stable Assistive Devices: Cane, Glasses and Oxygen - Continuous Allergies Allergies Allergy/AdvReac Type Severity Reaction Status Date / Time perflutren AdvReac Intermediate GI SYMPTOMS Verified 05/11/20 15:51 propylene glycol AdvReac Intermediate GI SYMPTOMS Verified 05/11/20 15:52 simvastatin AdvReac Intermediate JOINT AND Verified 05/11/20 15:52 MUSCLE PAIN Home Meds Home Medications Medication Instructions Recorded Confirmed cholecalciferol (vitamin D3) 1,000 unit PO QAM 04/20/18 05/11/20 [Vitamin D3] ondansetron HCl 4 mg tablet 4 mg PO Q8H PRN tab 08/10/18 05/11/20 acetaminophen [Tylenol Extra 500 mg PO Q6H PRN 05/22/19 05/11/20 Strength] methylprednisolone sodium succ 125 mg IM DIRECTED PRN 05/22/19 05/11/20 Lantus Solostar U-100 Insulin 15 unit SC BID 07/02/19 05/11/20 hydrocortisone 10 mg PO DAILY@1200,1500 07/02/19 05/11/20 hydrocortisone 20 mg PO DAILY@0500 07/02/19 05/11/20 calcitriol 0.5 mcg PO HS 09/09/19 05/11/20 oxycodone-acetaminophen 2 tab PO Q8H PRN 11/26/19 05/11/20 fludrocortisone 0.1 mg PO DAILY 04/21/20 05/11/20 sennosides-docusate sodium 3 tab PO QAM 04/21/20 05/11/20 [Senexon-S] tamsulosin 0.4 mg PO DAILY 04/21/20 05/11/20 amiodarone [Pacerone] 200 mg PO QPM 05/11/20 05/11/20 docusate sodium 100 mg PO BID PRN 05/11/20 05/11/20 lorazepam 1 mg PO Q8H PRN 05/11/20 05/11/20 morphine concentrate 5 mg PO Q2H PRN 05/11/20 05/11/20 prochlorperazine maleate 5 mg PO Q6H PRN 05/11/20 05/11/20 sennosides-docusate sodium 2 tab-cap PO HS 05/11/20 05/11/20 [Senexon-S] torsemide 20 mg PO 3XWK 05/11/20 05/11/20 Results & Data (ED) Vital Signs Vital Signs - 24 hr 06/12/20 14:33 06/12/20 14:56 06/12/20 15:17 Temperature 36.5 C Temperature Source Oral Pulse Rate 87 82 82 Pulse Rate from SpO2 Sensor Respiratory Rate 20 15 16 Respiratory Effort / Characteristics Non-Labored Spontaneous Respiratory Depth Normal Blood Pressure 137/92 137/92 Blood Pressure Mean 107 100 Blood Pressure Position Sitting Pulse Oximetry 100 Oxygen Delivery Method Nasal Cannula Oxygen Flow Rate 3 Sepsis Recent Fever Within 48 Hours No Sepsis New/Unexplained Change in Mental Status No Sepsis Action Taken by Nursing No Action Required 06/12/20 15:20 06/12/20 15:30 06/12/20 16:33 Temperature Temperature Source Pulse Rate 81 79 Pulse Rate from SpO2 Sensor 76 Respiratory Rate 13 13 Respiratory Effort / Characteristics Respiratory Depth Blood Pressure 133/75 Blood Pressure Mean 92 Blood Pressure Position Pulse Oximetry 100 Oxygen Delivery Method Oxygen Flow Rate Sepsis Recent Fever Within 48 Hours Sepsis New/Unexplained Change in Mental Status Sepsis Action Taken by Nursing 06/12/20 16:34 06/12/20 16:40 06/12/20 16:50 Temperature Temperature Source Pulse Rate 79 68 75 Pulse Rate from SpO2 Sensor Respiratory Rate 14 21 14 Respiratory Effort / Characteristics Respiratory Depth Blood Pressure Blood Pressure Mean Blood Pressure Position Pulse Oximetry Oxygen Delivery Method Oxygen Flow Rate Sepsis Recent Fever Within 48 Hours Sepsis New/Unexplained Change in Mental Status Sepsis Action Taken by Nursing 06/12/20 17:00 06/12/20 17:01 06/12/20 17:10 Temperature Temperature Source Pulse Rate 72 69 63 Pulse Rate from SpO2 Sensor Respiratory Rate 18 13 15 Respiratory Effort / Characteristics Respiratory Depth Blood Pressure 136/69 Blood Pressure Mean 86 Blood Pressure Position Pulse Oximetry Oxygen Delivery Method Oxygen Flow Rate Sepsis Recent Fever Within 48 Hours Sepsis New/Unexplained Change in Mental Status Sepsis Action Taken by Nursing 06/12/20 17:20 06/12/20 17:30 06/12/20 17:31 Temperature Temperature Source Pulse Rate 63 71 77 Pulse Rate from SpO2 Sensor 72 70 Respiratory Rate 16 17 17 Respiratory Effort / Characteristics Respiratory Depth Blood Pressure 136/78 Blood Pressure Mean 92 Blood Pressure Position Pulse Oximetry 100 100 Oxygen Delivery Method Oxygen Flow Rate Sepsis Recent Fever Within 48 Hours Sepsis New/Unexplained Change in Mental Status Sepsis Action Taken by Nursing 06/12/20 17:40 06/12/20 17:50 06/12/20 18:00 Temperature Temperature Source Pulse Rate 94 H 74 74 Pulse Rate from SpO2 Sensor 94 H 73 86 Respiratory Rate 15 15 18 Respiratory Effort / Characteristics Respiratory Depth Blood Pressure 136/76 Blood Pressure Mean 104 Blood Pressure Position Pulse Oximetry 100 100 100 Oxygen Delivery Method Oxygen Flow Rate Sepsis Recent Fever Within 48 Hours Sepsis New/Unexplained Change in Mental Status Sepsis Action Taken by Nursing 06/12/20 18:01 06/12/20 18:10 06/12/20 18:20 Temperature Temperature Source Pulse Rate 70 67 80 Pulse Rate from SpO2 Sensor 69 68 78 Respiratory Rate 19 12 17 Respiratory Effort / Characteristics Respiratory Depth Blood Pressure Blood Pressure Mean Blood Pressure Position Pulse Oximetry 100 100 100 Oxygen Delivery Method Oxygen Flow Rate Sepsis Recent Fever Within 48 Hours Sepsis New/Unexplained Change in Mental Status Sepsis Action Taken by Nursing 06/12/20 18:30 06/12/20 18:31 06/12/20 18:40 Temperature Temperature Source Pulse Rate 74 73 74 Pulse Rate from SpO2 Sensor 69 71 75 Respiratory Rate 16 12 21 Respiratory Effort / Characteristics Respiratory Depth Blood Pressure 119/69 Blood Pressure Mean 81 Blood Pressure Position Pulse Oximetry 100 100 100 Oxygen Delivery Method Oxygen Flow Rate Sepsis Recent Fever Within 48 Hours Sepsis New/Unexplained Change in Mental Status Sepsis Action Taken by Nursing 06/12/20 18:50 06/12/20 19:00 06/12/20 19:01 Temperature Temperature Source Pulse Rate 70 70 71 Pulse Rate from SpO2 Sensor 71 71 65 Respiratory Rate 22 14 12 Respiratory Effort / Characteristics Respiratory Depth Blood Pressure 138/73 Blood Pressure Mean 97 Blood Pressure Position Pulse Oximetry 100 100 100 Oxygen Delivery Method Oxygen Flow Rate Sepsis Recent Fever Within 48 Hours Sepsis New/Unexplained Change in Mental Status Sepsis Action Taken by Nursing Laboratory Data Result diagrams: 06/12/20 16:43 06/12/20 16:43 Lab Results 06/12/20 06/12/20 Range/Units 16:43 16:43 WBC 8.53 (4.8-10.8) K/uL RBC 3.25 L (4.7-6.1) M/uL Hgb 8.8 L (14.0-18.0) g/dL Hct 29.0 L (42-52) % MCV 89.2 (80-100) fL MCH 27.1 (25-34) pg MCHC 30.3 L (32-36) g/dL RDW Std Deviation 73.1 H (36.4-46.3) fL RDW Coeff of Scottie 22.0 H (11.5-14.5) % Plt Count 387 (130-400) K/uL MPV 9.5 (7.4-10.4) fL Immature Gran % (Auto) 0.6 % Neut % (Auto) 92.3 % Lymph % (Auto) 4.5 % [place] % (Auto) 2.5 % Eos % (Auto) 0.1 % Baso % (Auto) 0.0 % Neut # (Auto) 7.88 H (1.4-6.5) K/uL Lymph # (Auto) 0.38 L (1.2-3.4) K/uL [place] # (Auto) 0.21 (0.11-0.59) K/uL Eos # (Auto) 0.01 (0-0.5) K/uL Baso # (Auto) 0.00 (0-0.2) K/uL Immature Gran # (Auto) 0.05 H (0.00-0.02) K/uL Anisocytosis Present Schistocytes Occasional Sodium 133 L (136-145) mmol/L Potassium 5.2 H (3.5-5.1) mmol/L Chloride 101 (98-107) mmol/L Carbon Dioxide 21 (21-32) mmol/L Anion Gap 11.0 (3-11) BUN 69 H (7-18) mg/dl Creatinine 5.26 H* (0.6-1.4) mg/dl Est Cr Clr Drug Dosing Not Reportable Est GFR ( Amer) 11.6 Est GFR (Non-Af Amer) 10.0 BUN/Creatinine Ratio 13.1 (10-20) Glucose 78 (70-99) mg/dl Calcium 9.2 (8.5-10.1) mg/dl Total Bilirubin 19.7 H (0.2-1) mg/dl Direct Bilirubin TNP AST 247 H (15-37) U/L ALT 220 H (12-78) U/L Alkaline Phosphatase 1366 H (45-117) U/L Total Protein 5.3 L (6.4-8.2) gm/dl Albumin 1.9 L (3.4-5.0) gm/dl Administered Medications Discontinued Medications Fentanyl Citrate (Fentanyl Citrate 100 Mcg/2 Ml Vial) 50 mcg IV NOW STA Stop: 06/12/20 15:29 Last Admin: 06/12/20 18:20 Dose: 50 mcg Documented by: [id number] Fentanyl Citrate (Fentanyl Citrate 100 Mcg/2 Ml Vial) Confirm Administered Dose 100 mcg .ROUTE .STK-MED ONE Stop: 06/12/20 18:09 Last Admin: 06/12/20 18:20 Dose: Not Given Documented by: [id number] Sodium Chloride (Nss 1000ml) 1,000 mls @ 999 mls/hr IV .Q1H1M ONE Stop: 06/12/20 16:14 Last Infusion: 06/12/20 18:02 Dose: 0 mls/hr Documented by: [id number] Admin: 06/12/20 16:30 Dose: 999 mls/hr Documented by: [id number] Tranexamic Acid (Txa 10% Non-Iv Routes 100 Mg/Ml Vial) 1,000 mg TOP ONE ONE Stop: 06/12/20 15:17 Last Admin: 06/12/20 18:01 Dose: Not Given Documented by: [id number] Discharge Plan Visit Data Chief Complaint: Urinary Symptoms ED Provider: Reed Desai Discharge Problem: Hematuria, Dehydration, Metastatic malignant melanoma, Weakness, Total bilirubin, elevated Forms Stand Alone Forms: [facility]serv Prescriptions Prescriptions: No Action ondansetron HCl 4 mg tablet 4 mg PO Q8H PRN (Reason: Nausea) RF: 0 cholecalciferol (vitamin D3) [Vitamin D3] 1,000 unit Capsule 1,000 unit PO QAM RF: 0 acetaminophen [Tylenol Extra Strength] 500 mg Tablet 500 mg PO Q6H PRN (Reason: Pain) RF: 0 methylprednisolone sodium succ 125 mg Recon Soln 125 mg IM DIRECTED PRN (Reason: EMERGENCY CASE) RF: 0 sennosides-docusate sodium [Senexon-S] 8.6-50 mg tablet 3 tab PO QAM RF: 0 tamsulosin 0.4 mg capsule 0.4 mg PO DAILY RF: 0 fludrocortisone 0.1 mg tablet 0.1 mg PO DAILY RF: 0 lorazepam 1 mg Tablet 1 mg PO Q8H PRN (Reason: Anxiety) RF: 0 torsemide 20 mg tablet 20 mg PO 3XWK RF: 0 docusate sodium 100 mg Capsule 100 mg PO BID PRN (Reason: Constipation) RF: 0 amiodarone [Pacerone] 200 mg Tablet 200 mg PO QPM RF: 0 sennosides-docusate sodium [Senexon-S] 8.6-50 mg Tablet 2 tab-cap PO HS RF: 0 morphine concentrate 100 mg/5 mL (20 mg/mL) solution 5 mg PO Q2H PRN (Reason: Pain) RF: 0 prochlorperazine maleate 5 mg tablet 5 mg PO Q6H PRN (Reason: Nausea) RF: 0 hydrocortisone 10 mg tablet 10 mg PO DAILY@1200,1500 RF: 0 hydrocortisone 10 mg tablet 20 mg PO DAILY@0500 RF: 0 Lantus Solostar U-100 Insulin 100 unit/mL (3 mL) insulin pen 15 unit SC BID RF: 0 calcitriol 0.5 mcg capsule 0.5 mcg PO HS RF: 0 oxycodone-acetaminophen 5-325 mg tablet 2 tab PO Q8H PRN (Reason: Pain) RF: 0 Discharge Problem: Hematuria Qualifiers: Hematuria type: gross Qualified Code(s): R31.0 - Gross hematuria
[2020-06-12 15:56] VITALS: O2SAT 100
[2020-06-12 16:51] LABS: Eosinophils # (auto) 0.01 K/uL (0-0.5); Eosinophils % (auto) 0.1 %; Hemoglobin 8.8 g/dL (14.0-18.0); Immature Granulocytes # (auto) 0.05 K/uL (0.00-0.02); Immature Granulocytes % (auto) 0.6 %; Lymphocytes # (auto) 0.38 K/uL (1.2-3.4); Lymphocytes % (auto) 4.5 %; Mean Corpuscular Hemoglobin 27.1 pg (25-34); Mean Corpuscular Hgb Conc 30.3 g/dL (32-36); Mean Corpuscular Volume 89.2 fL (80-100); Mean Platelet Volume 9.5 fL (7.4-10.4); Monocytes # (auto) 0.21 K/uL (0.11-0.59); Monocytes % (auto) 2.5 %; Neutrophils # (auto) 7.88 K/uL (1.4-6.5); Neutrophils % (auto) 92.3 %; Platelet Count 387 K/uL (130-400); RDW Standard Deviation 73.1 fL (36.4-46.3); Red Blood Count 3.25 M/uL (4.7-6.1); White Blood Count 8.53 K/uL (4.8-10.8)
[2020-06-12 17:46] LABS: Anisocytosis Present; Schistocytes Occasional
[2020-06-12] MEDS ORDERED: fentaNYL citrate 100 MCG/2 ML VIAL ONE (18:08)
[2020-06-12 18:33] LABS: Alanine Aminotransferase 220 U/L (12-78); Albumin Level 1.9 gm/dl (3.4-5.0); Alkaline Phosphatase 1366 U/L (45-117); Aspartate Aminotransferase 247 U/L (15-37); BUN Creatinine Ratio 13.1 (10-20); Bilirubin,Total 19.7 mg/dl (0.2-1); Blood Urea Nitrogen 69 mg/dl (7-18); Calcium 9.2 mg/dl (8.5-10.1); Carbon Dioxide 21 mmol/L (21-32); Chloride 101 mmol/L (98-107); Est GFR (African American) 11.6; Glucose 78 mg/dl (70-99); Potassium 5.2 mmol/L (3.5-5.1); Sodium 133 mmol/L (136-145); Total Protein 5.3 gm/dl (6.4-8.2)
--- NOTE | 2020-06-12 19:18 | History & Physical Report ---
Date of Service June 12, 2020 Assessment & Plan (1) Hematuria: This is a 75 yo M with end-stage metastatic melanoma on hospice, known bladder mass, CKD IV, anemia, type 2 diabetes, adrenal insufficiency, paroxysmal A. fib and tachybradycardia syndrome s/p pacemaker placement and other medical problems listed below who presents from home with hematuria. -Increased hematuria today with presence of blood clots. Has nephrostomy tube that has been draining some brownish urine -Hgb at baseline at 8.8. Repeat H&H in AM - need to discuss wishes regarding potential blood transfusion if needed -Declined Bang catheter placement for bladder irrigation offered by ED physician (2) Declining functional status: In setting of end-stage metastatic melanoma, on hospice. Feels that he needs increased hospice care due to difficulty with ambulation and ADLs -Case management able to coordinate discharge with increased home health as soon as tomorrow -PT, OT, discharge planning (3) Metastatic malignant melanoma: History of metastatic melanoma with bladder mass, splenic lesions, bulky abdominal adenopathy -Currently not receiving any active treatments, on hospice at home however patient expresses wishes to be treated for minor medical conditions (4) Sacral wound: Known condition. Wound care consulted (5) Total bilirubin, elevated: Bilirubin elevated at 19 - previously 1 last month -CT ABD/pelvis known lateral mass and bulky abdominal adenopathy - likely related to oncological process -No abdominal pain. Repeat labwork in AM (6) Nephrostomy status: (7) Tachy-oscar syndrome: (8) Paroxysmal atrial fibrillation: (9) Pacemaker: Rhythm controlled on amiodarone -Not anticoagulated secondary to history of hematuria and anemia (10) Acute kidney injury superimposed on chronic kidney disease: (11) Chronic kidney disease, stage 4 (severe): Creatinine elevated 4.8-5.2 over the past month, likely multifactorial due to dehydration from poor p.o. intake, diuretics, chronic hydronephrosis -Given 1 L NSS in ED. Avoid giving additional fluids due to significant lower extremity edema on exam 2/2 hypoalbuminemia -Hold torsemide for now (12) Diabetes mellitus, type II: Hgb A1c 6.0 04/2020 -Glucose of 78 on admission - hold home lantus and utilize NovoLog per protocol while hospitalized -[facility] (13) Adrenal insufficiency: H/o total adrenalectomy.Continue hydrocortisone and fludrocortisone -BP stable, no role for stress dose steroids at this time (14) Sleep apnea: CPAP HS DVT Ppx: SCDs in setting of hematuria Code status: DNR per DEBRA, discussion with patient PCP: [facility]nor Dispo:Inpatient hospice Patient seen in collaboration with Dr. Bales. Please see addendum. History of Present Illness Chief Complaint: hematuria Primary Care Provider: Prasad Mcguire, DO This is a 75 yo M with end-stage metastatic melanoma on hospice, known bladder mass, CKD 4, anemia, type 2 diabetes, adrenal insufficiency, paroxysmal A. fib and tachybradycardia syndrome s/p pacemaker placement and other medical problems listed below who presents from home with hematuria. Patient has had multiple admissions in the past few months and was most recently discharged in late April on home hospice who has been coming to assist patient 2x/week. Is also a [facility] at home patient. Patient has been having some hematuria recently but it increased earlier today with presence of blood clots. Has nephrostomy tube that has been draining some brownish urine. Also endorses some mild abdominal pain lately due to constipation. Was given laxative yesterday by home health nurse and has had a few small bowel movements with resolution of discomfort. Has had a poor appetite for the past few days without much p.o. intake. Denies any fever, chills, chest pain, SOB or diarrhea. Has known sacral wound. Patient is interested in returning home where he has home hospice twice weekly now, but feels too weak to get in and out of bed and take care of himself at this time. Feels he needs increased care each week as well as medical supplies and cannot be discharged home tonight since he will be without help. Case management in the ED was able to arrange nursing care starting tomorrow for 6 days a week (more limited care available this weekend due to holiday). Received IV fluids and fentanyl in ED for abdominal pain that has since resolved. Declined Bang catheter placement for bladder irrigation offered by ED physician. Allergies Allergy/AdvReac Type Severity Reaction Status Date / Time perflutren AdvReac Intermediate GI SYMPTOMS Verified 06/12/20 20:00 propylene glycol AdvReac Intermediate GI SYMPTOMS Verified 06/12/20 20:00 simvastatin AdvReac Intermediate JOINT AND Verified 06/12/20 20:00 MUSCLE PAIN Home Medications Medication Instructions Recorded Confirmed Type cholecalciferol (vitamin D3) 1,000 unit PO QAM 04/20/18 06/12/20 History [Vitamin D3] acetaminophen [Tylenol Extra 1,000 mg PO Q6H PRN 05/22/19 06/12/20 History Strength] methylprednisolone sodium succ 125 mg IM DIRECTED PRN 05/22/19 06/12/20 History Lantus Solostar U-100 Insulin 15 unit SC BID 07/02/19 06/12/20 History hydrocortisone 10 mg PO DAILY@1200,1500 07/02/19 06/12/20 History hydrocortisone 20 mg PO DAILY@0500 07/02/19 06/12/20 History calcitriol 0.5 mcg PO HS 09/09/19 06/12/20 History fludrocortisone 0.1 mg PO DAILY 04/21/20 06/12/20 History sennosides-docusate sodium 3 tab PO BID 04/21/20 06/12/20 History [Senexon-S] tamsulosin 0.4 mg PO DAILY 04/21/20 06/12/20 History amiodarone [Pacerone] 200 mg PO QPM 05/11/20 06/12/20 History docusate sodium 100 mg PO BID 05/11/20 06/12/20 History lorazepam 1 mg PO BID PRN 05/11/20 06/12/20 History torsemide 20 mg PO 3XWK 05/11/20 06/12/20 History Haldol Liquid 0.5 ml PO Q4 PRN 06/12/20 06/12/20 History bisacodyl [Dulcolax (bisacodyl)] 10 mg MO DAILY PRN 06/12/20 06/12/20 History hydromorphone [Dilaudid] 1 mg PO .Q3 PRN 06/12/20 06/12/20 History hydromorphone [Dilaudid] 2 mg PO Q6 06/12/20 06/12/20 History lorazepam 1 mg PO HS 06/12/20 06/12/20 History Past Med/Surg History Medical History Adrenal insufficiency S/P LEFT ADRENALECTOMY- ON CHRONIC HYDROCORTISONE Anemia Anxiety Bladder mass Chronic kidney disease, stage 4 (severe) Degenerative disc disease Diabetes mellitus, type II Dyslipidemia History of immunotherapy Keytruda x 2 Cycles (had to stop after 2nd cycle) Current Opdivo q 2 weeks (currently on hold) - started 05/2017 - 04/2018 History of transfusion of packed red blood cells Hypertension Left bundle branch block Metastatic malignant melanoma Morbid obesity Pacemaker Septic shock Sleep apnea CPAP HS Tachy-oscar syndrome Urinary tract infection due to ESBL Klebsiella Surgical History History of cystoscopy History of esophagogastroduodenoscopy (EGD) History of tooth extraction Hx of total adrenalectomy LEFT SIDE-- HX B/L ADRENAL MASSES; UNDERWENT LAP LEFT ADRENAL MASS EXCISION 04/14/17; PATHOLOGY METASTATIC MALIGNANT MELANOMA WITH VASCULAR INVASION Nephrostomy status Family History Father No problems noted. Mother Colon cancer, Onset Age: 85 Chemo and Resection - Alive and well now Sister Breast cancer, Onset Age: 55 Had Radiation - Alive and well now Sister No problems noted. Sister No problems noted. Sister No problems noted. Sister No problems noted. Brother No problems noted. Son No problems noted. Son No problems noted. Social History Smoking Status: Never smoker Second Hand Exposure: No; Do You Dip or Chew Tobacco: Yes; Hx Alcohol Use: No Hx Substance Use: No Preferred Language: Armenian Communication Ability: Effective Visual Impairment: Limited Hearing Ability: Hard of Hearing Driver Salesman Required: No Beliefs That Will Affect Care: None marital status: Single Current Living Situation: Alone current occupational status: retired current occupation: Retired - [employer] Feels Safe at Home: Yes Safety Concerns: Feels Safe At This Time caffeine: Yes (2 cups of coffee/day ) during the past year weight has: remained stable Assistive Devices: Cane and Glasses Review of Systems Review of Systems: At least ten systems reviewed and negative except as noted in the HPI. Physical Exam Physical Exam: General Appearance: vitals as above, NAD, morbidly obese, sitting up in bed, lethargic but conversing without issue Head: normocephalic, atraumatic Eyes: normal inspection, PERRL, conjunctivae normal, +scleral icterus ENT: external ear and nose normal, oropharynx normal Neck: normal visual inspection, trachea midline, no thyromegaly Respiratory: normal respiratory effort, lungs clear to auscultation, no wheeze, rales, rhonchi. No accessory muscle use Cardiovascular: regular rate, rhythm, no murmur, normal peripheral pulses, 2+ BLE edema Abdomen/GI: normal bowel sounds, soft, nontender, no hepatosplenomegaly. + R nephrostomy tube in place with some brownish discharge Extremities/Musculoskeletal: no cyanosis or clubbing, extremities motor stre ngth 5/5 Neurologic: PERRL, EOMI, accommodation nl, no face palsy, no dysarthria, CN's II-XI intact bilaterally and moves all extremities Psychiatric: A+Ox3, euthymic affect Skin: no rashes, warm/dry, + jaundice Results & Data Results & Data ([facility]) Vital Signs (Past 12 Hours) Vital Signs Temp Pulse Resp BP Pulse Ox 06/12/20 19:01 71 12 100 06/12/20 19:00 70 14 138/73 100 06/12/20 18:50 70 22 100 06/12/20 18:40 74 21 100 06/12/20 18:31 73 12 100 06/12/20 18:30 74 16 119/69 100 06/12/20 18:20 80 17 100 06/12/20 18:10 67 12 100 06/12/20 18:01 70 19 100 06/12/20 18:00 74 18 136/76 100 06/12/20 17:50 74 15 100 06/12/20 17:40 94 H 15 100 06/12/20 17:31 77 17 100 06/12/20 17:30 71 17 136/78 100 06/12/20 17:20 63 16 06/12/20 17:10 63 15 06/12/20 17:01 69 13 06/12/20 17:00 72 18 136/69 06/12/20 16:50 75 14 06/12/20 16:40 68 21 06/12/20 16:34 79 14 06/12/20 16:33 133/75 100 06/12/20 15:30 79 13 06/12/20 15:20 81 13 06/12/20 15:17 82 16 06/12/20 14:56 82 15 137/92 06/12/20 14:33 36.5 C 87 20 137/92 100 Laboratory Results Short CBC 06/12/20 Range/Units 16:43 WBC 8.53 (4.8-10.8) K/uL Hgb 8.8 L (14.0-18.0) g/dL Hct 29.0 L (42-52) % Plt Count 387 (130-400) K/uL BMP 06/12/20 16:43 Sodium 133 L Potassium 5.2 H Chloride 101 Carbon Dioxide 21 BUN 69 H Creatinine 5.26 H* Glucose 78 Calcium 9.2 Liver Function 06/12/20 Range/Units 16:43 Total Bilirubin 19.7 H (0.2-1) mg/dl Direct Bilirubin TNP AST 247 H (15-37) U/L ALT 220 H (12-78) U/L Alkaline Phosphatase 1366 H (45-117) U/L Albumin 1.9 L (3.4-5.0) gm/dl Supervising Physician Co-Signing Physician Notes Attending Addendum: The patient was seen and examined in ER 75-year-old male with history of metastatic melanoma and known bladder mass on hospice care at home came in with hematuria and difficulty voiding Noted to have blood clot passed out but the patient refused to have any irrigation of the bladder He has been almost bedbound and admitted to control pain and hematuria On examination Minimal distress at rest Hemodynamically stable Chest-clear to auscultate bilaterally Heart-S1-S2 Abdomen-mildly distended and moderately tender hypogastrium, bowel sounds present Remedies 2-3+ edema bilaterally 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 Generally very weak and lethargic Admission labs, EKG and recent imaging studies reviewed Has hematuria secondary to bladder mass with metastatic melanoma under hospice care at home We will get PT OT and social service involved for possible discharge with more home health/hospice care Agree with assessment plan as outlined above by ALFONSO Toscano Dr (1) Hematuria Hematuria type: gross Qualified Code(s): R31.0 - Gross hematuria
[2020-06-12] MEDS ORDERED: POLYETHYLENE (MIRALAX) 17 GM PACK PO PRN (22:14)
[2020-06-12] MEDS ORDERED: ONDANSETRON INJ 2 MG/ML 2 ML VIAL IV PRN (22:14)
[2020-06-12] MEDS ORDERED: ACETAMINOPHEN 500 MG TAB PO PRN (22:14)
[2020-06-12] MEDS ORDERED: METHYLPREDNISOLONE SODIUM SUCC IM PRN (22:14)
[2020-06-12] MEDS ORDERED: bisacodyL 10 MG SUPP PR PRN (22:14)
[2020-06-12] MEDS ORDERED: ALUMINUM/MAGNESIUM SUSP 30 ML UDC PO PRN (22:14)
[2020-06-12] MEDS ORDERED: LORazepam 1 MG TAB PO PRN (22:26)
[2020-06-12] MEDS ORDERED: HALOPERIDOL ORAL SOLN 2 MG/ML PO PRN (22:28)
[2020-06-12] MEDS ORDERED: LORazepam 1 MG TAB PO SCH (22:30)
[2020-06-12] MEDS: HYDROmorphone HCL 2 MG TAB PO SCH (22:41)
[2020-06-13] MEDS: HYDROmorphone HCL 2 MG TAB PO PRN ×4 (01:50→17:28)
[2020-06-13] MEDS: HYDROmorphone INJ 0.5 MG/0.5 ML SYR IV PRN ×2 (02:27→11:17)
[2020-06-13] MEDS ORDERED: DEXTROSE 50% 50 ML SYRINGE IV PRN (04:29)
[2020-06-13] MEDS ORDERED: GLUCOSE 10 TABS/TUBE PO PRN (04:29)
[2020-06-13] MEDS ORDERED: GLUCOSE 40% GEL 15 GM TUBE PO PRN (04:29)
[2020-06-13] MEDS ORDERED: GLUCAGON FOR INJ 1 MG VIAL SQ PRN (04:29)
[2020-06-13] MEDS: CARBOHYDRATES FOR HYPOGLYCEMIA PO PRN ×3 (05:00→05:52)
[2020-06-13] MEDS ORDERED: HYDROCORTISONE 10 MG TAB PO SCH (05:00)
[2020-06-13] MEDS: INSULIN ASPART 100 UNITS/ML 3 ML PEN SC SCH ×2 (05:04→12:52)
[2020-06-13] MEDS: HYDROmorphone HCL 2 MG TAB PO SCH ×2 (05:53→12:40)
[2020-06-13] MEDS ORDERED: DEXTROSE 5% 1,000 ML IV SCH (06:30)
[2020-06-13] MEDS: DOCUSATE SODIUM/SENNA 50/8.6MG TAB PO SCH ×2 (08:52→08:58)
[2020-06-13] MEDS ORDERED: TAMSULOSIN HCL 0.4 MG CAP PO SCH (09:00)
[2020-06-13] MEDS ORDERED: TORSEMIDE 20 MG TAB PO SCH (09:00)
[2020-06-13] MEDS ORDERED: DOCUSATE SODIUM 100 MG CAP PO SCH (09:00)
[2020-06-13] MEDS ORDERED: CHOLECALCIFEROL 1,000 UNITS 25 MCG TAB PO SCH (09:00)
[2020-06-13] MEDS ORDERED: FLUDROCORTISONE ACETATE 0.1 MG TAB PO SCH (09:00)
[2020-06-13 10:40] LABS: Basophils # (auto) 0.01 K/uL (0-0.2); Basophils % (auto) 0.1 %; Eosinophils # (auto) 0.13 K/uL (0-0.5); Eosinophils % (auto) 1.5 %; Hematocrit (blood only) 27.9 % (42-52); Hemoglobin 8.3 g/dL (14.0-18.0); Immature Granulocytes # (auto) 0.05 K/uL (0.00-0.02); Immature Granulocytes % (auto) 0.6 %; Lymphocytes % (auto) 5.9 %; Mean Corpuscular Hemoglobin 26.7 pg (25-34); Mean Corpuscular Hgb Conc 29.7 g/dL (32-36); Mean Corpuscular Volume 89.7 fL (80-100); Mean Platelet Volume 9.4 fL (7.4-10.4); Monocytes # (auto) 0.29 K/uL (0.11-0.59); Monocytes % (auto) 3.4 %; Neutrophils # (auto) 7.46 K/uL (1.4-6.5); Neutrophils % (auto) 88.5 %; Platelet Count 336 K/uL (130-400); RDW Coefficient of Variation 21.9 % (11.5-14.5); RDW Standard Deviation 71.9 fL (36.4-46.3); Red Blood Count 3.11 M/uL (4.7-6.1); White Blood Count 8.44 K/uL (4.8-10.8)
[2020-06-13 11:14] LABS: Anisocytosis Present; Hypochromasia Present; Polychromasia 1+
[2020-06-13 11:24] LABS: BUN Creatinine Ratio 12.9 (10-20); Calcium 8.4 mg/dl (8.5-10.1); Creatinine Clr Calc Pharmacy 14.8 ml/min; Est GFR (Non-African American) 9.5; Magnesium 2.8 mg/dl (1.8-2.4); Phosphorus 5.5 mg/dl (2.5-4.9); Potassium 4.6 mmol/L (3.5-5.1)
[2020-06-13] MEDS: HYDROCORTISONE 10 MG TAB PO SCH ×2 (12:40→17:17)
--- NOTE | 2020-06-13 13:50 | Hospitalist Progress Note ---
Date of Service June 13, 2020 Assessment & Plan (1) Hematuria: This is a 75 yo M with end-stage metastatic melanoma on hospice, known bladder mass, CKD IV, anemia, type 2 diabetes, adrenal insufficiency, paroxysmal A. fib and tachybradycardia syndrome s/p pacemaker placement and other medical problems listed below who presents from home with hematuria. -Possible cause of hematuria is metastatic melanoma and is complicated by bladder mass could be primary or secondary to melanoma. -Increased hematuria today with presence of blood clots. Has right nephrostomy tube that has been draining some brownish urine -Hgb at baseline at 8.8. Repeat H&H in AM - need to discuss wishes regarding potential blood transfusion if needed -Declined Bang catheter placement for bladder irrigation offered by ED physician -Still having hematuria and he is now agreeable to a Bang catheter -Pain is reasonably controlled with medication -We will put a Bang and the patient can be discharged this afternoon (2) Declining functional status: In setting of end-stage metastatic melanoma, on hospice. Feels that he needs increased hospice care due to difficulty with ambulation and ADLs -Case management able to coordinate discharge with increased home health as soon as tomorrow -Hospice nurse is going to increase the cat home -The patient is agreeable to that and will be discharged home this afternoon (3) Metastatic malignant melanoma: History of metastatic melanoma with bladder mass, splenic lesions, bulky abdominal adenopathy -Currently not receiving any active treatments, on hospice at home however p atient expresses wishes to be treated for minor medical conditions -Continue hospice care at home (4) Sacral wound: Stage II sacral wound Known condition. Wound care consulted (5) Total bilirubin, elevated: Bilirubin elevated at 19 - previously 1 last month -CT ABD/pelvis known lateral mass and bulky abdominal adenopathy - likely related to oncological process -No abdominal pain. Repeat labwork in AM (6) Nephrostomy status: (7) Tachy-oscar syndrome: (8) Paroxysmal atrial fibrillation: (9) Pacemaker: Rhythm controlled on amiodarone -Not anticoagulated secondary to history of hematuria and anemia (10) Acute kidney injury superimposed on chronic kidney disease: (11) Chronic kidney disease, stage 4 (severe): Creatinine elevated 4.8-5.2 over the past month, likely multifactorial due to dehydration from poor p.o. intake, diuretics, chronic hydronephrosis -Given 1 L NSS in ED. Avoid giving additional fluids due to significant lower extremity edema on exam 2/2 hypoalbuminemia -Hold torsemide for now (12) Diabetes mellitus, type II: Hgb A1c 6.0 04/2020 -Glucose of 78 on admission - hold home lantus and utilize NovoLog per protocol while hospitalized -[facility] (13) Adrenal insufficiency: H/o total adrenalectomy.Continue hydrocortisone and fludrocortisone -BP stable, no role for stress dose steroids at this time (14) Sleep apnea: CPAP HS DVT Ppx: SCDs in setting of hematuria Code status: DNR per POLST, discussion with patient PCP: [facility]nor Dispo:Inpatient hospice Discussed with the patient in detail Prognosis remains extremely poor He will be discharged home this afternoon with home hospice Admission and Anticipated Discharge Date Admission Date: June 12, 2020 Subjective 06/13/2020 The patient was seen and examined in medical floor He complains to have pain all over and mainly hypogastrium Continues to have hematuria and refusing any catheter placement He remains very weak and lethargic Review of Systems Review of Systems: All systems reviewed and are unremarkable except as noted below Constitutional: + fatigue and + weakness Respiratory: no cough and no dyspnea Gastrointestinal: + abdominal pain Genitourinary: + dysuria, + difficulty urinating, + urinary incontinence, + hematuria and + flank pain Neurologic: + generalized weakness Physical Exam Physical Exam: Lying in bed with discomfort due to pain Constitutional: well developed, well nourished, + acute distress (Pain all over and mainly in the hypogastrium) and + ill appearing Eyes: PERRL, conjunctivae normal, anicteric sclerae ENMT: external ear and nose normal, oropharynx normal Neck: trachea midline, no thyromegaly Respiratory: no respiratory distress Auscultation: + diminished lung sounds Cardiovascular: Rate/Rhythm: regular rate and regular rhythm Gastrointestinal (Abdomen): Inspection/Auscultation: abdomen not distended Percussion/Palpation: + abdomen tender (Hypogastrium) and abdomen soft Musculoskeletal: Arthralgias but no acute arthritis Neurologic: Alert and awake Lymphatic: no cervical or axillary lymphadenopathy Results & Data Results & Data ([facility]) Vital Signs (Past 12 Hours) Vital Signs Temp Pulse Resp BP Pulse Ox 06/13/20 07:00 36.4 C L 80 20 108/66 100 Laboratory Results Short CBC 06/12/20 06/13/20 Range/Units 16:43 10:15 WBC 8.53 8.44 (4.8-10.8) K/uL Hgb 8.8 L 8.3 L (14.0-18.0) g/dL Hct 29.0 L 27.9 L (42-52) % Plt Count 387 336 (130-400) K/uL BMP 06/12/20 06/13/20 16:43 10:15 Sodium 133 L 132 L Potassium 5.2 H 4.6 Chloride 101 101 Carbon Dioxide 21 23 BUN 69 H 70 H Creatinine 5.26 H* 5.50 H* Glucose 78 83 Calcium 9.2 8.4 L Liver Function 06/12/20 Range/Units 16:43 Total Bilirubin 19.7 H (0.2-1) mg/dl Direct Bilirubin TNP AST 247 H (15-37) U/L ALT 220 H (12-78) U/L Alkaline Phosphatase 1366 H (45-117) U/L Albumin 1.9 L (3.4-5.0) gm/dl Medications Administered Current Inpatient Medications Acetaminophen (Acetaminophen 500 Mg Tab) 1,000 mg PO Q6H PRN PRN Reason: Pain Stop: 07/12/20 22:13 Al Hydrox/Mg Hydrox/Simethicone (Aluminum/Magnesium Susp 30 Ml Udc) 30 ml PO Q6H PRN PRN Reason: Dyspepsia Stop: 07/12/20 22:13 Last Admin: 06/12/20 22:42 Dose: 30 ml Documented by: Amiodarone HCl (Amiodarone 200 Mg Tab) 200 mg PO QPM RENZO Stop: 07/13/20 20:59 Bisacodyl (Bisacodyl 10 Mg Supp) 10 mg W[place] DAILY PRN PRN Reason: Constipation Stop: 07/12/20 22:13 Calcitriol (Calcitriol 0.25 Mcg Capsule) 0.5 mcg PO HS RENZO Stop: 07/13/20 20:59 Dextrose (Dextrose 50% 50 Ml Syringe) 25 - 50 ml IV UD PRN; Protocol PRN Reason: Hypoglycemia Protocol Stop: 07/13/20 04:28 Last Admin: 06/13/20 06:17 Dose: 25 ml Documented by: Docusate Sodium (Docusate Sodium 100 Mg Cap) 100 mg PO BID RENZO Stop: 07/13/20 08:59 Last Admin: 06/13/20 08:52 Dose: 100 mg Documented by: Fludrocortisone Acetate (Fludrocortisone Acetate 0.1 Mg Tab) 0.1 mg PO DAILY RENZO Stop: 07/13/20 08:59 Last Admin: 06/13/20 08:53 Dose: 0.1 mg Documented by: Glucagon (Glucagon For Inj 1 Mg Vial) 1 mg SQ UD PRN; Protocol PRN Reason: Hypoglycemia Protocol Stop: 07/13/20 04:28 Glucose (Glucose 10 Tabs/Tube) 4 - 8 tabs PO UD PRN; Protocol PRN Reason: Hypoglycemia Protocol Stop: 07/13/20 04:28 Glucose (Glucose 40% Gel 15 Gm Tube) 15 - 30 gm PO UD PRN; Protocol PRN Reason: Hypoglycemia Protocol Stop: 07/13/20 04:28 Haloperidol Lactate (Haloperidol Oral Soln 2 Mg/Ml) 0.5 mg PO Q4H PRN PRN Reason: NAUSEA,ANXIETY Stop: 07/12/20 22:27 Hydrocortisone (Hydrocortisone 10 Mg Tab) 10 mg PO DAILY@1200,1500 [facility] Stop: 07/13/20 11:59 Last Admin: 06/13/20 12:40 Dose: 10 mg Documented by: Hydrocortisone (Hydrocortisone 10 Mg Tab) 20 mg PO DAILY@0500 [facility] Stop: 07/13/20 04:59 Last Admin: 06/13/20 05:02 Dose: 20 mg Documented by: Hydromorphone HCl (Hydromorphone Hcl 2 Mg Tab) 1 mg PO Q3H PRN PRN Reason: Pain Stop: 06/26/20 22:18 Last Admin: 06/13/20 08:51 Dose: 1 mg Documented by: Hydromorphone HCl (Hydromorphone Hcl 2 Mg Tab) 2 mg PO Q6 RENZO Stop: 06/26/20 22:44 Last Admin: 06/13/20 12:40 Dose: 2 mg Documented by: Dextrose (D5w) 1,000 mls @ 40 mls/hr IV .Q24H RENZO Stop: 07/13/20 06:29 Last Admin: 06/13/20 06:30 Dose: 40 mls/hr Documented by: Insulin Aspart (Insulin Aspart 100 Units/Ml 3 Ml Pen) 0 units SC ACHS RENZO Stop: 07/13/20 04:29 Last Admin: 06/13/20 12:52 Dose: Not Given Documented by: Lorazepam (Lorazepam 1 Mg Tab) 1 mg PO BID PRN PRN Reason: Anxiety Stop: 07/12/20 22:25 Lorazepam (Lorazepam 1 Mg Tab) 1 mg PO HS RENZO Stop: 07/12/20 22:29 Last Admin: 06/12/20 22:39 Dose: 1 mg Documented by: Miscellaneous (Carbohydrates For Hypoglycemia ) 15 - 30 gm PO UD PRN PRN Reason: Hypoglycemia Protocol Stop: 07/13/20 04:28 Last Admin: 06/13/20 05:52 Dose: 15 gm Documented by: Ondansetron HCl (Ondansetron Inj 2 Mg/Ml 2 Ml Vial) 4 mg IV Q6H PRN PRN Reason: Nausea Stop: 07/12/20 22:13 Polyethylene Glycol (Polyethylene (Miralax) 17 Gm Pack) 17 gm PO DAILY PRN PRN Reason: Constipation Stop: 07/12/20 22:13 Senna/Docusate Sodium (Docusate Sodium/Senna 50/8.6mg Tab) 3 tab PO BID RENZO Stop: 07/13/20 08:59 Last Admin: 06/13/20 08:58 Dose: Not Given Documented by: Tamsulosin HCl (Tamsulosin Hcl 0.4 Mg Cap) 0.4 mg PO DAILY RENZO Stop: 07/13/20 08:59 Last Admin: 06/13/20 08:52 Dose: 0.4 mg Documented by: Torsemide (Torsemide 20 Mg Tab) 20 mg PO MoWeFr RENZO Stop: 07/13/20 08:59 Last Admin: 06/13/20 08:52 Dose: 20 mg Documented by: Vitamin D (Cholecalciferol 1,000 Units 25 Mcg Tab) 1,000 units PO QAM RENZO Stop: 07/13/20 08:59 Last Admin: 06/13/20 08:52 Dose: 1,000 units Documented by: (1) Hematuria Hematuria type: gross Qualified Code(s): R31.0 - Gross hematuria
[2020-06-13 15:07] VITALS: BP 92/58; PULSE 88; TEMP 97.3
[2020-06-13] MEDS ORDERED: CALCITRIOL 0.25 MCG CAPSULE PO SCH (21:00)
[2020-06-13] MEDS ORDERED: AMIODARONE 200 MG TAB PO SCH (21:00)
--- NOTE | 2020-06-13 21:03 | Electrocardiogram Report ---
Test Reason : Blood Pressure : / mmHG Vent. Rate : 086 BPM Atrial Rate : 086 BPM P-R Int : 176 ms QRS Dur : 148 ms QT Int : 400 ms P-R-T Axes : 045 -07 135 degrees QTc Int : 478 ms Normal sinus rhythm Left bundle branch block Abnormal ECG When compared with ECG of 11-MAY-2020 21:01, No significant change was found Confirmed by Milton Browning ([id number]) on 06/13/2020 9:02:45 PM Referred By: REFERRED SELF Confirmed By:Milton Browning
--- NOTE | 2020-06-14 07:46 | Discharge Summary ---
Date of Service June 14, 2020 Admission HPI Per Admitting Provider This is a 75 yo M with end-stage metastatic melanoma on hospice, known bladder mass, CKD 4, anemia, type 2 diabetes, adrenal insufficiency, paroxysmal A. fib and tachybradycardia syndrome s/p pacemaker placement and other medical problems listed below who presents from home with hematuria. Patient has had multiple admissions in the past few months and was most recently discharged in late April on home hospice who has been coming to assist patient 2x/week. Is also a [facility] at home patient. Patient has been having some hematuria recently but it increased earlier today with presence of blood clots. Has nephrostomy tube that has been draining some brownish urine. Also endorses some mild abdominal pain lately due to constipation. Was given laxative yesterday by home health nurse and has had a few small bowel movements with resolution of discomfort. Has had a poor appetite for the past few days without much p.o. intake. Denies any fever, chills, chest pain, SOB or diarrhea. Has known sacral wound. Patient is interested in returning home where he has home hospice twice weekly now, but feels too weak to get in and out of bed and take care of himself at this time. Feels he needs increased care each week as well as medical supplies and cannot be discharged home tonight since he will be without help. Case management in the ED was able to arrange nursing care starting tomorrow for 6 days a week (more limited care available this weekend due to holiday). Received IV fluids and fentanyl in ED for abdominal pain that has since resolved. Declined Bang catheter placement for bladder irrigation offered by ED physician. Admission Exam Per Admitting Provider Physical Exam: General Appearance: vitals as above, NAD, morbidly obese, sitting up in bed, lethargic but conversing without issue Head: normocephalic, atraumatic Eyes: normal inspection, PERRL, conjunctivae normal, +scleral icterus ENT: external ear and nose normal, oropharynx normal Neck: normal visual inspection, trachea midline, no thyromegaly Respiratory: normal respiratory effort, lungs clear to auscultation, no wheeze, rales, rhonchi. No accessory muscle use Cardiovascular: regular rate, rhythm, no murmur, normal peripheral pulses, 2+ BLE edema Abdomen/GI: normal bowel sounds, soft, nontender, no hepatosplenomegaly. + R nephrostomy tube in place with some brownish discharge Extremities/Musculoskeletal: no cyanosis or clubbing, extremities motor strength 5/5 Neurologic: PERRL, EOMI, accommodation nl, no face palsy, no dysarthria, CN's II-XI intact bilaterally and moves all extremities Psychiatric: A+Ox3, euthymic affect Skin: no rashes, warm/dry, + jaundice Principal Diagnosis Hematuria, metastatic melanoma, bladder mass, acute on chronic kidney disease stage IV Discharge Exam Constitutional well developed, well nourished, + acute distress (Pain all over and mainly in the hypogastrium) and + ill appearing Eyes PERRL, conjunctivae normal, anicteric sclerae ENMT external ear and nose normal, oropharynx normal Neck trachea midline, no thyromegaly Respiratory no respiratory distress Auscultation: + diminished lung sounds Cardiovascular Rate/Rhythm: regular rate and regular rhythm Gastrointestinal (Abdomen) Inspection/Auscultation: abdomen not distended Percussion/Palpation: + abdomen tender (Hypogastrium) and abdomen soft Lymphatic no cervical or axillary lymphadenopathy Discharge Data Allergies Allergy/AdvReac Type Severity Reaction Status Date / Time perflutren AdvReac Intermediate GI SYMPTOMS Verified 06/12/20 20:00 propylene glycol AdvReac Intermediate GI SYMPTOMS Verified 06/12/20 20:00 simvastatin AdvReac Intermediate JOINT AND Verified 06/12/20 20:00 MUSCLE PAIN Consultations 06/12/20 19:03 ED Decision to Admit Stat 06/12/20 22:14 Consult Case Management - Discharge Planning Routine Hospital Course (1) Hematuria: This is a 75 yo M with end-stage metastatic melanoma on hospice, known bladder mass, CKD IV, anemia, type 2 diabetes, adrenal insufficiency, paroxysmal A. fib and tachybradycardia syndrome s/p pacemaker placement and other medical problems listed below who presents from home with hematuria. -Possible cause of hematuria is metastatic melanoma and is complicated by bladder mass could be primary or secondary to melanoma. -Increased hematuria today with presence of blood clots. Has right nephrostomy tube that has been draining some brownish urine -Hgb at baseline at 8.8. Repeat H&H in AM - need to discuss wishes regarding potential blood transfusion if needed -Declined Bang catheter placement for bladder irrigation offered by ED physician -Still having hematuria and he is now agreeable to a Bang catheter -Pain is reasonably controlled with medication -We will put a Bang and the patient can be discharged this afternoon (2) Declining functional status: In setting of end-stage metastatic melanoma, on hospice. Feels that he needs increased hospice care due to difficulty with ambulation and ADLs -Case management able to coordinate discharge with increased home health as soon as tomorrow -Hospice nurse is going to increase the cat home -The patient is agreeable to that and will be discharged home this afternoon (3) Metastatic malignant melanoma: History of metastatic melanoma with bladder mass, splenic lesions, bulky abdominal adenopathy -Currently not receiving any active treatments, on hospice at home however patient expresses wishes to be treated for minor medical conditions -Continue hospice care at home (4) Sacral wound: Stage II sacral wound Known condition. Wound care consulted (5) Total bilirubin, elevated: Bilirubin elevated at 19 - previously 1 last month -CT ABD/pelvis known lateral mass and bulky abdominal adenopathy - likely rel ated to oncological process -No abdominal pain. Repeat labwork in AM (6) Nephrostomy status: (7) Tachy-oscar syndrome: (8) Paroxysmal atrial fibrillation: (9) Pacemaker: Rhythm controlled on amiodarone -Not anticoagulated secondary to history of hematuria and anemia (10) Acute kidney injury superimposed on chronic kidney disease: (11) Chronic kidney disease, stage 4 (severe): Creatinine elevated 4.8-5.2 over the past month, likely multifactorial due to dehydration from poor p.o. intake, diuretics, chronic hydronephrosis -Given 1 L NSS in ED. Avoid giving additional fluids due to significant lower extremity edema on exam 2/2 hypoalbuminemia -Hold torsemide for now (12) Diabetes mellitus, type II: Hgb A1c 6.0 04/2020 -Glucose of 78 on admission - hold home lantus and utilize NovoLog per protocol while hospitalized -BSG AC HS (13) Adrenal insufficiency: H/o total adrenalectomy.Continue hydrocortisone and fludrocortisone -BP stable, no role for stress dose steroids at this time (14) Sleep apnea: CPAP HS DVT Ppx: SCDs in setting of hematuria Code status: DNR per POLST, discussion with patient PCP: [facility] Dispo:Inpatient hospice Discussed with the patient in detail Prognosis remains extremely poor He will be discharged home this afternoon with home hospice Total Time Total Time Spent Total Time Spent (In Minutes): 35 minutes Total Time Includes: Examination of the Patient, Discharge Planning, Medication Reconciliation and Communication With Other Providers Discharge Plan Discharge Items Patient Disposition: Hospice - Home Reason For Visit: HEMATURIA, END STAGE MET MELANOMA Discharge Diagnosis: Hematuria, metastatic melanoma, bladder mass, acute on chronic kidney disease stage IV Condition on Discharge: Fair Activity: As commented below Activity Comment: Needs help with ADL S Non-emergency contact: Primary Care Provider Call non-emergency contact if: you have any medication questions and your symptoms worsen Follow-up/Referrals: Prasad Mcguire, [Primary Care Provider] - (PCP appointment as per hospice care) Diet: Regular and Full liquid Addtl Attending Provider Instructions: Please take precaution to avoid falls Pending Studies at Discharge: No Stand-Alone Forms: My [facility] [employer] Medications and DC Order Prescriptions: Continued cholecalciferol (vitamin D3) [Vitamin D3] 1,000 unit Capsule 1,000 unit PO QAM RF: 0 acetaminophen [Tylenol Extra Strength] 500 mg Tablet 1,000 mg PO Q6H PRN (Reason: Pain) RF: 0 methylprednisolone sodium succ 125 mg Recon Soln 125 mg IM DIRECTED PRN (Reason: EMERGENCY CASE) RF: 0 sennosides-docusate sodium [Senexon-S] 8.6-50 mg tablet 3 tab PO BID RF: 0 tamsulosin 0.4 mg capsule 0.4 mg PO DAILY RF: 0 fludrocortisone 0.1 mg tablet 0.1 mg PO DAILY RF: 0 lorazepam 1 mg Tablet 1 mg PO BID PRN (Reason: Anxiety) RF: 0 torsemide 20 mg tablet 20 mg PO 3XWK RF: 0 docusate sodium 100 mg Capsule 100 mg PO BID RF: 0 amiodarone [Pacerone] 200 mg Tablet 200 mg PO QPM RF: 0 hydrocortisone 10 mg tablet 10 mg PO DAILY@1200,1500 RF: 0 hydrocortisone 10 mg tablet 20 mg PO DAILY@0500 RF: 0 Lantus Solostar U-100 Insulin 100 unit/mL (3 mL) insulin pen 15 unit SC BID RF: 0 calcitriol 0.5 mcg capsule 0.5 mcg PO HS RF: 0 bisacodyl [Dulcolax (bisacodyl)] 10 mg suppository 10 mg UT DAILY PRN (Reason: Constipation) RF: 0 lorazepam 1 mg Tablet 1 mg PO HS RF: 0 hydromorphone [Dilaudid] 1 mg/mL liquid 1 mg PO .Q3 PRN (Reason: Pain) RF: 0 hydromorphone [Dilaudid] 1 mg/mL liquid 2 mg PO Q6 RF: 0 Haldol Liquid 0.5 ml PO Q4 PRN (Reason: NAUSEA,ANXIETY) RF: 0 Discharge Orders: Discharge Order (Routine); Ordered 06/13/20 Ordered By: Edgar Bales Admission Data Admit Date/Time: 06/12/20 19:33 Attending Provider: Edgar Bales Admit Provider: Edgar Bales Primary Care Provider: Prasad Mcguire Other Providers: Edgar Bales Other Interventions: Discharge Summary Assessment (RN) Last Done: 06/13/20 15:35
--- NOTE | 2020-06-24 12:10 | Coding Query ---
WOUND CLARIFICATION To promote full compliance with coding requirements relating to patient care, physician participation is requested in all cases of front maker lockstitch uncertainty. Please assist us with the question(s) below: Please place an "X" within the parenthesis (x). If other, please specify. Please provide further clarification on the type of sacral wound. ( X) Ulcer ( X) Pressure ulcer ( ) Diabetic ulcer ( ) Other ulcer (please specify) ( ) Open wound due to trauma ( ) Blister ( ) Other: (Please specify) Thank you Maricarmen TABARES
== END 2020-06-13 17:47 | disposition hospice, home (50) | DRG 596 ==
LOC: ED 14:49 → 3W 19:33